=== PATIENT | male | born 1965 | race Caucasian/White ===

== ENCOUNTER 2018-08-28 16:32 | Emergency (ER) | payer MEDICARE, MEDICAID ==
[~2018-08-28] VITALS: Ht 193 cm; Wt 117.9 kg
[2018-08-28 16:32] VITALS: BP 136/70
--- NOTE | 2018-08-28 17:10 | Emergency Room Report ---
History of Present Illness General Chief Complaint: Abdominal Pain Source: Patient, Medical Record, EMS Present Illness HPI Patient presents with complaints of right flank and right lower abdominal pain Ongoing for the past 5 days Patient reports previous history of kidney stones Feels of the pain has been now more persistent Denies any vomiting denies any diarrhea Denies any chest pain or short of breath pain is 7 out of 10 Has improved recently Denies any blood in the urine Allergies: Coded Allergies: ACETAMINOPHEN (Verified Allergy, Unknown, 08/28/18) ASPIRIN (Verified Allergy, Unknown, 08/28/18) KETOROLAC (Verified Allergy, Unknown, 08/28/18) Uncoded Allergies: NSAIDS (Allergy, Unknown, 08/28/18) Patient History Past Medical History: see triage record Pertinent Family History: none Reviewed Nursing Documentation: PMH: Agreed; PSxH: Agreed Nursing Documentation-PMH Past Medical History: No History, Except For Hx Cardiac Problems: Yes - High cholesterol Hx Hypertension: Yes Hx Gastrointestinal Problems: No Hx Dialysis: No - History of kidney stones, UTI, BPH History Of Psychiatric Problem: Yes - Depression, Anxiety, Insomnia Hx Neurological Problems: Yes Hx Cerebrovascular Accident: Yes - Left sided hemiparesis Review of Systems All Other Systems: negative except mentioned in HPI Physical Exam Vital Signs Date Time Temp Pulse Resp B/P (MAP) Pulse Ox O2 Delivery O2 Flow Rate FiO2 08/28/18 16:24 208.6 78 18 97 98.1 08/28/18 16:24 112/64 Room Air Sp02 EP Interpretation: reviewed, normal General Appearance: well appearing, no apparent distress Head: normocephalic, atraumatic Eyes: bilateral eye PERRL, bilateral eye EOMI ENT: hearing grossly normal, normal pharynx Neck: supple Respiratory: lungs clear Cardiovascular #1: regular rate, rhythm Gastrointestinal: non tender Genitourinary: no CVA tenderness Musculoskeletal: other - Lower extremity weakness Neurologic: alert, oriented x3 Skin: no rash Lymphatic: no adenopathy Medical Decision Making Diagnostic Impression: Primary Impression: UTI (urinary tract infection) ER Course With the history exam and presentation, multiple differentials considered, including but not limited to appendicitis, gastritis, cholecystitis, diverticulitis Kidney stones with renal colic also entertained given the history CT imaging does not show any obvious kidney stones Urine sample showed small amount of white blood cells Other blood work was normal patient feels significantly improved Clinically denies being constipated at this time will have initial conservative treatment for UTI at the nursing facility and return with any changes Labs Test 08/28/18 17:15 White Blood Count 6.9 K/UL (4.8-10.8) Red Blood Count 5.12 M/UL (4.70-6.10) Hemoglobin 14.9 G/DL (14.2-18.0) Hematocrit 45.0 % (42.0-52.0) Mean Corpuscular Volume 88 FL (80-99) Mean Corpuscular Hemoglobin 29.2 PG (27.0-31.0) Mean Corpuscular Hemoglobin Concent 33.2 G/DL (32.0-36.0) Red Cell Distribution Width 13.6 % (11.6-14.8) Platelet Count 100 K/UL (150-450) Mean Platelet Volume 8.8 FL (6.5-10.1) Neutrophils (%) (Auto) 64.0 % (45.0-75.0) Lymphocytes (%) (Auto) 25.3 % (20.0-45.0) Monocytes (%) (Auto) 7.4 % (1.0-10.0) Eosinophils (%) (Auto) 2.5 % (0.0-3.0) Basophils (%) (Auto) 0.8 % (0.0-2.0) Urine Color Yellow Urine Appearance Clear Urine pH 7 (4.5-8.0) Urine Specific [place] 1.015 (1.005-1.035) Urine Protein Negative (NEGATIVE) Urine Glucose (UA) Negative (NEGATIVE) Urine Ketones Negative (NEGATIVE) Urine Blood Negative (NEGATIVE) Urine Nitrite Negative (NEGATIVE) Urine Bilirubin Negative (NEGATIVE) Urine Urobilinogen Normal MG/DL (0.0-1.0) Urine Leukocyte Esterase 1+ (NEGATIVE) Urine RBC 0-2 /HPF (0 - 0) Urine WBC 5-10 /HPF (0 - 0) Urine Squamous Epithelial Cells None /LPF (NONE/OCC) Urine Bacteria Few /HPF (NONE) Sodium Level 139 MMOL/L (136-145) Potassium Level 3.8 MMOL/L (3.5-5.1) Chloride Level 105 MMOL/L (98-107) Carbon Dioxide Level 25 MMOL/L (21-32) Anion Gap 9 mmol/L (5-15) Blood Urea Nitrogen 16 mg/dL (7-18) Creatinine 0.9 MG/DL (0.55-1.30) Estimat Glomerular Filtration Rate > 60 mL/min (>60) Glucose Level 105 MG/DL (74-106) Calcium Level 8.3 MG/DL (8.5-10.1) Total Bilirubin 0.3 MG/DL (0.2-1.0) Aspartate Amino Transf (AST/SGOT) 100 U/L (15-37) Alanine Aminotransferase (ALT/SGPT) 124 U/L (12-78) Alkaline Phosphatase 100 U/L (46-116) Total Protein 8.0 G/DL (6.4-8.2) Albumin 2.8 G/DL (3.4-5.0) Globulin 5.2 g/dL Albumin/Globulin Ratio 0.5 (1.0-2.7) CT/MRI/US Diagnostic Results CT/MRI/US Diagnostic Results : Impression CT abdomen pelvisMPRESSION: 1. Cholelithiasiswithout gallbladder wall thickening or ductal dilatation. 2. Spleen is enlarged, with a diameter of 15.9 cm. 3. Mild diffuse colonic fecal retention maysuggest constipation. 4. Incidental note of a 2.2 x 1.8 x 1.0 cmjuxta papillaryduodenal diverticulum. Last Vital Signs Date Time Temp Pulse Resp B/P (MAP) Pulse Ox O2 Delivery O2 Flow Rate FiO2 08/28/18 16:32 98.6 72 14 136/70 96 Room Air 98.6 Status: improved Disposition: XFER SNF Condition: Improved Scripts Nitrofurantoin Monohyd/M-Cryst* (MACROBID 100 MG*) 100 Mg Capsule 100 MG ORAL EVERY 12 HOURS, #14 CAP Prov: Tacho Ruiz DO 08/28/18 Additional Instructions: Patient is provided with the discharge instructions notified to follow up with primary doctor in the next 2-3 days otherwise return to the er with any worsening symptoms. Please note that this report is being documented using [email or web address] technology. This can lead to erroneous entry secondary to incorrect interpretation by the dictating instrument. Tacho Ruiz DO Aug 28, 2018 17:10
[2018-08-28] MEDS ORDERED: Morphine Sulfate 4mg/ml Inj (IV/IM USE ONLY) IVP ONE ×2 (17:15→20:30)
[2018-08-28 17:29] LABS: BASOPHILS % (AUTO) 0.8 % (0.0-2.0); EOSINOPHILS % (AUTO) 2.5 % (0.0-3.0); HEMOGLOBIN 14.9 G/DL (14.2-18.0); LYMPHOCYTES % (AUTO) 25.3 % (20.0-45.0); MEAN CORPUSCULAR VOLUME 88 FL (80-99); MONOCYTES % (AUTO) 7.4 % (1.0-10.0); PLATELET COUNT 100 K/UL (150-450); RED BLOOD COUNT 5.12 M/UL (4.70-6.10); RED CELL DISTRIBUTION WIDTH 13.6 % (11.6-14.8); WHITE BLOOD COUNT 6.9 K/UL (4.8-10.8)
[2018-08-28 17:34] LABS: APPEARANCE,URINE CLEAR; BILIRUBIN, URINE NEGATIVE (NEGATIVE); GLUCOSE, URINE (UA) NEGATIVE (NEGATIVE); KETONES,URINE NEGATIVE (NEGATIVE); LEUKOCYTE ESTERASE ,URINE 1+ (NEGATIVE); NITRITE,URINE NEGATIVE (NEGATIVE); PH,URINE 7 (4.5-8.0); PROTEIN,URINE NEGATIVE (NEGATIVE); UROBILINOGEN,URINE NORMAL MG/DL (0.0-1.0)
[2018-08-28 17:35] LABS: COLOR,URINE YELLOW
[2018-08-28 18:00] LABS: ANION GAP 9 mmol/L (5-15); BLOOD UREA NITROGEN 16 mg/dL (7-18); CALCIUM 8.3 MG/DL (8.5-10.1); CARBON DIOXIDE 25 MMOL/L (21-32); CHLORIDE 105 MMOL/L (98-107); CREATININE 0.9 MG/DL (0.55-1.30); POTASSIUM 3.8 MMOL/L (3.5-5.1); SODIUM 139 MMOL/L (136-145)
[2018-08-28 18:04] LABS: ALANINE AMINOTRANSFERASE 124 U/L (12-78); ALBUMIN 2.8 G/DL (3.4-5.0); ALBUMIN/GLOBULIN RATIO 0.5 (1.0-2.7); ALKALINE PHOSPHATASE 100 U/L (46-116); ASPARTATE AMINO TRANSFERASE 100 U/L (15-37); BILIRUBIN,TOTAL 0.3 MG/DL (0.2-1.0)
--- NOTE | 2018-08-28 18:04 | Diagnostic Imaging Report ---
EXAM: CT Abdomen and Pelvis Without Intravenous Contrast CLINICAL HISTORY: PAIN TECHNIQUE: Axial computed tomography images of the abdomen and pelvis without intravenous contrast. CTDI is 20.10 mGy and DLP is 1184 mGy-cm. One or more of the following dose reduction techniques were used: automated exposure control, adjustment of the mA and/or kV according to patient size, use of iterative reconstruction technique. COMPARISON: No relevant prior studies available. FINDINGS: Lung bases: Mild dependent atelectasis in the left lung base. ABDOMEN: Liver: Unremarkable. Gallbladder and bile ducts: Cholelithiasis without gallbladder wall thickening or ductal dilatation. Pancreas: Unremarkable. No ductal dilation. Spleen: Spleen is enlarged with a diameter of 15.9 cm. Adrenals: Unremarkable. No mass. Kidneys and ureters: Unremarkable. No obstructing stones. No hydronephrosis. Stomach and bowel: Mild diffuse colonic fecal retention may suggest constipation. Incidental note of a 2.2 x 1.8 x 1.0 cm juxta papillary duodenal diverticulum. No abnormally distended loops of small bowel. GE junction and stomach appear unremarkable. No mucosal thickening. PELVIS: Appendix: The appendix appears normal. Bladder: Unremarkable. No stones. Reproductive: Unremarkable as visualized. ABDOMEN and PELVIS: Intraperitoneal space: Unremarkable. No free air. No significant fluid collection. Bones/joints: No acute fracture. No dislocation. Soft tissues: Unremarkable. Vasculature: Atherosclerotic calcifications throughout the abdominal aorta and its proximal branches. No abnormal dilatation. Lymph nodes: Unremarkable. No enlarged lymph nodes. IMPRESSION: 1. Cholelithiasis without gallbladder wall thickening or ductal dilatation. 2. Spleen is enlarged, with a diameter of 15.9 cm. 3. Mild diffuse colonic fecal retention may suggest constipation. 4. Incidental note of a 2.2 x 1.8 x 1.0 cm juxta papillary duodenal diverticulum.
[2018-08-28] MEDS ORDERED: NITROFURANTOIN100 M2 ORAL (18:50)
[2018-08-28 19:07] VITALS: BP 131/59
[2018-08-28 20:37] VITALS: BP 134/60
[2018-08-28 21:21] VITALS: BP 134/60
== END 2018-08-28 21:30 ==
LOC: EDBD 16:32 → EMR 16:45
DX: N39.0 Urinary tract infection, site not specified (principal); K80.20 Calculus of gallbladder without cholecystitis without obstruction; R16.1 Splenomegaly, not elsewhere classified; K57.10 Diverticulosis of small intestine without perforation or abscess without bleeding; K59.00 Constipation, unspecified; I10 Essential (primary) hypertension; F41.8 Other specified anxiety disorders; G47.00 Insomnia, unspecified; I69.354 Hemiplegia and hemiparesis following cerebral infarction affecting left non-dominant side; E78.00 Pure hypercholesterolemia, unspecified; Z88.6 Allergy status to analgesic agent
CPT/HCPCS: 36415; 74176; 80053; 81003; 85025; 96374; 96375; 99284; J2270; J2405

== ENCOUNTER 2018-09-09 13:07 | Inpatient (IN) | payer MEDICARE, MEDICAID ==
[~2018-09-09] VITALS: Ht 193 cm; Wt 127.0 kg
[~2018-09-09 13:07] MED LIST: NITROFURANTOIN100 M2 ORAL
[2018-09-09 13:30] VITALS: BP 107/66
[2018-09-09] MEDS ORDERED: Nitroglycerin 2% oint pkt TOPIC ONE (13:30)
[2018-09-09] MEDS ORDERED: Morphine Sulfate 4mg/ml Inj (IV/IM USE ONLY) IVP ONE (13:30)
[2018-09-09 14:06] LABS: BASOPHILS % (AUTO) 0.8 % (0.0-2.0); EOSINOPHILS % (AUTO) 2.5 % (0.0-3.0); HEMATOCRIT 47.6 % (42.0-52.0); HEMOGLOBIN 15.2 G/DL (14.2-18.0); LYMPHOCYTES % (AUTO) 21.7 % (20.0-45.0); MEAN CORPUSCULAR VOLUME 86 FL (80-99); MONOCYTES % (AUTO) 7.8 % (1.0-10.0); NEUTROPHILS % (AUTO) 67.3 % (45.0-75.0); PLATELET COUNT 105 K/UL (150-450); RED BLOOD COUNT 5.52 M/UL (4.70-6.10); RED CELL DISTRIBUTION WIDTH 13.7 % (11.6-14.8); WHITE BLOOD COUNT 7.1 K/UL (4.8-10.8)
[2018-09-09 14:07] LABS: ANION GAP 11 mmol/L (5-15); BLOOD UREA NITROGEN 14 mg/dL (7-18); CALCIUM 8.6 MG/DL (8.5-10.1); CARBON DIOXIDE 25 MMOL/L (21-32); CHLORIDE 107 MMOL/L (98-107); CREATININE 0.8 MG/DL (0.55-1.30); POTASSIUM 3.9 MMOL/L (3.5-5.1); SODIUM 142 MMOL/L (136-145)
[2018-09-09 14:17] LABS: INR 3.8 (0.9-1.1)
[2018-09-09 14:22] LABS: ALANINE AMINOTRANSFERASE 114 U/L (12-78); ALBUMIN 2.9 G/DL (3.4-5.0); ALBUMIN/GLOBULIN RATIO 0.6 (1.0-2.7); ALKALINE PHOSPHATASE 95 U/L (46-116); ASPARTATE AMINO TRANSFERASE 87 U/L (15-37); BILIRUBIN,TOTAL 0.4 MG/DL (0.2-1.0); CREATINE KINASE 92 U/L (26-308)
[2018-09-09] MEDS ORDERED: HYDROmorphone 1mg/ml Carpuject IVP ONE ×2 (15:15→16:30)
[2018-09-09 15:19] LABS: APPEARANCE,URINE CLEAR; BILIRUBIN, URINE NEGATIVE (NEGATIVE); COLOR,URINE YELLOW; GLUCOSE, URINE (UA) NEGATIVE (NEGATIVE); KETONES,URINE NEGATIVE (NEGATIVE); LEUKOCYTE ESTERASE ,URINE 1+ (NEGATIVE); NITRITE,URINE NEGATIVE (NEGATIVE); PH,URINE 6.5 (4.5-8.0); PROTEIN,URINE NEGATIVE (NEGATIVE); UROBILINOGEN,URINE NORMAL MG/DL (0.0-1.0)
--- NOTE | 2018-09-09 15:31 | Diagnostic Imaging Report ---
Indication: Chest pain Comparison: None A single view chest radiograph was obtained. Findings: No definite infiltrate identified. The lung bases likely show mild atelectasis. Heart size is normal. Bones are unremarkable. IMPRESSION: No acute disease
--- NOTE | 2018-09-09 15:33 | Emergency Room Report ---
History of Present Illness General Chief Complaint: Pain Source: Patient, Medical Record, EMS Present Illness HPI Patient presents with left-sided chest pain for 2 days. He states he's had a heart attack in the past and this feels exactly like that. Radiates to scapula. He rates the pain at 9/10 at this time. Pressure and aching. No dyspnea. The patient's had a stroke in lives in a senior care facility and has hemiparesis and weakness of his left side. He's also on anticoagulation ( plavix recorded). Denies fever, chills, cough, hemoptysis, dyspnea, headache, rashes, extremity pain, increased weakness. Depression. H/O hepatitis Allergies: Coded Allergies: ACETAMINOPHEN (Verified Allergy, Unknown, 08/28/18) ASPIRIN (Verified Allergy, Unknown, 08/28/18) KETOROLAC (Verified Allergy, Unknown, 08/28/18) NSAIDS (NON-STEROIDAL ANTI-INFLAMMA (Verified Allergy, Unknown, 09/09/18) Patient History Past Medical History: see triage record Social History: Denies: smoking Social History Narrative SNF Reviewed Nursing Documentation: PMH: Agreed; PSxH: Agreed Nursing Documentation-PMH Past Medical History: No History, Except For Hx Cardiac Problems: No - High cholesterol, hepatitis Hx Hypertension: Yes Hx Gastrointestinal Problems: No - GERD Hx Dialysis: No - History of kidney stones, UTI, BPH History Of Psychiatric Problem: No - anxiety, depression Hx Neurological Problems: Yes Hx Cerebrovascular Accident: Yes - Left sided hemiparesis Review of Systems All Other Systems: negative except mentioned in HPI Physical Exam Vital Signs Date Time Temp Pulse Resp B/P (MAP) Pulse Ox O2 Delivery O2 Flow Rate FiO2 09/09/18 12:57 97.9 74 18 111/56 99 Room Air Sp02 EP Interpretation: reviewed, normal General Appearance: no apparent distress, GCS 15, Chronically Ill Head: normocephalic Eyes: bilateral eye normal inspection, bilateral eye PERRL ENT: moist mucus membranes Neck: supple Respiratory: lungs clear, normal breath sounds Cardiovascular #1: regular rate, rhythm Cardiovascular #2: 2+ radial (R) Gastrointestinal: normal inspection, normal bowel sounds, non tender, no mass, non-distended Musculoskeletal: back normal, no calf tenderness, pelvis stable, Mariia's Sign negative Neurologic: alert, sensory intact, motor weakness - L hemiparesis, oriented - X2 Psychiatric: depressed affect Skin: normal inspection, warm/dry Medical Decision Making Diagnostic Impression: Primary Impression: ACS (acute coronary syndrome) Additional Impressions: Hemiparesis Qualified Codes: I69.359 - Hemiplegia and hemiparesis following cerebral infarction affecting unspecified side Elevated INR ER Course Patient presents with left-sided chest pain. I differential includes acute myocardial infarction, acute coronary syndrome, costochondritis, muscle strain, pneumonia amongst others. Evaluation will be he EKG, chest x-ray and labs. The patient will be treated with nitroglycerin paste and morphine. The patient is allergic to aspirin. EKG shows normal sinus rhythm left axis deviation with nonspecific ST-T wave changes. Chest x-ray possible left effusion. Initial troponin negative. INR is prolonged. Pyuria. CMP with elevated LFTs (h/o hepatitis). The fact that the INR is prolonged suggests that this is not a PE although, no evidence of coumadin. Patient still with significant pain. Dilaudid given. Patient admitted to telemetry for acute coronary syndrome Dr. Christiansen. Laboratory Tests Test 09/09/18 13:36 09/09/18 14:32 White Blood Count 7.1 K/UL (4.8-10.8) Red Blood Count 5.52 M/UL (4.70-6.10) Hemoglobin 15.2 G/DL (14.2-18.0) Hematocrit 47.6 % (42.0-52.0) Mean Corpuscular Volume 86 FL (80-99) Mean Corpuscular Hemoglobin 27.5 PG (27.0-31.0) Mean Corpuscular Hemoglobin Concent 31.9 G/DL (32.0-36.0) L Red Cell Distribution Width 13.7 % (11.6-14.8) Platelet Count 105 K/UL (150-450) L Mean Platelet Volume 9.8 FL (6.5-10.1) Neutrophils (%) (Auto) 67.3 % (45.0-75.0) Lymphocytes (%) (Auto) 21.7 % (20.0-45.0) Monocytes (%) (Auto) 7.8 % (1.0-10.0) Eosinophils (%) (Auto) 2.5 % (0.0-3.0) Basophils (%) (Auto) 0.8 % (0.0-2.0) Prothrombin Time 37.3 SEC (9.30-11.50) H Prothrombin Time INR 3.8 (0.9-1.1) H PTT 51 SEC (23-33) H Sodium Level 142 MMOL/L (136-145) Potassium Level 3.9 MMOL/L (3.5-5.1) Chloride Level 107 MMOL/L (98-107) Carbon Dioxide Level 25 MMOL/L (21-32) Anion Gap 11 mmol/L (5-15) Blood Urea Nitrogen 14 mg/dL (7-18) Creatinine 0.8 MG/DL (0.55-1.30) Estimate Glomerular Filtration Rate > 60 mL/min (>60) Glucose Level 98 MG/DL (74-106) Calcium Level 8.6 MG/DL (8.5-10.1) Total Bilirubin 0.4 MG/DL (0.2-1.0) Aspartate Amino Transferase (AST) 87 U/L (15-37) H Alanine Aminotransferase (ALT) 114 U/L (12-78) H Alkaline Phosphatase 95 U/L (46-116) Total Creatine Kinase 92 U/L (26-308) Troponin I 0.007 ng/mL (0.000-0.056) Pro-B-Type Natriuretic Peptide 35 pg/mL (0-125) Total Protein 8.1 G/DL (6.4-8.2) Albumin 2.9 G/DL (3.4-5.0) L Globulin 5.2 g/dL Albumin/Globulin Ratio 0.6 (1.0-2.7) L Urine Color Yellow Urine Appearance Clear Urine pH 6.5 (4.5-8.0) Urine Specific [place] 1.015 (1.005-1.035) Urine Protein Negative (NEGATIVE) Urine Glucose (UA) Negative (NEGATIVE) Urine Ketones Negative (NEGATIVE) Urine Blood Negative (NEGATIVE) Urine Nitrite Negative (NEGATIVE) Urine Bilirubin Negative (NEGATIVE) Urine Urobilinogen Normal MG/DL (0.0-1.0) Urine Leukocyte Esterase 1+ (NEGATIVE) H Urine RBC 2-4 /HPF (0 - 0) H Urine WBC 5-10 /HPF (0 - 0) H Urine Squamous Epithelial Cells None /LPF (NONE/OCC) Urine Bacteria Occasional /HPF (NONE) EKG Diagnostic Results Rate: normal Rhythm: NSR ST Segments: no acute changes ASA given to the pt in ED: No - allergic Rhythm Strip Diag. Results EP Interpretation: yes Rhythm: NSR, no PVC's, no ectopy Chest X-Ray Diagnostic Results Chest X-Ray Diagnostic Results : Chest X-Ray Ordered: Yes # of Views/Limited/Complete: 1 View Indication: Chest Pain Interpretation: no consolidation, no effusion, no pneumothorax Impression: No acute disease Electronically Signed by: Will Barr MD Last Vital Signs Date Time Temp Pulse Resp B/P (MAP) Pulse Ox O2 Delivery O2 Flow Rate FiO2 09/09/18 20:00 70 09/09/18 20:00 98.1 19 129/64 (85) 94 09/09/18 19:58 Room Air 21 Status: improved Disposition: ADMITTED INPATIENT Condition: Serious Referrals: NON PHYSICIAN (PCP) Will Barr MD Sep 09, 2018 15:33
[2018-09-09] MEDS ORDERED: SERTRALINE HCL50 MG ORAL (15:38)
[2018-09-09] MEDS ORDERED: TAMSULOSIN HCL0.4 MG ORAL (15:38)
[2018-09-09] MEDS ORDERED: ATORVASTATIN CA20 MG ORAL (15:38)
[2018-09-09] MEDS ORDERED: BISACODYL10 M1 RC (15:38)
[2018-09-09] MEDS ORDERED: TRAZODONE HCL50 MG ORAL (15:38)
[2018-09-09] MEDS ORDERED: PROSCAR5 MG ORAL (15:38)
[2018-09-09] MEDS ORDERED: GABAPENTIN600 MG ORAL (15:38)
[2018-09-09] MEDS ORDERED: VITAMIN D400 INTLU ORAL (15:38)
[2018-09-09] MEDS ORDERED: PLAVIX75 MG ORAL (15:38)
[2018-09-09] MEDS ORDERED: ABILIFY10 MG ORAL (15:38)
[2018-09-09] MEDS ORDERED: MULTIVITAMINS1 EAC8 ORAL (15:38)
[2018-09-09] MEDS ORDERED: CARISOPRODOL350 MG ORAL (15:38)
[2018-09-09] MEDS ORDERED: COLACE100 MG ORAL (15:38)
[2018-09-09] MEDS ORDERED: METOPROLOL TART25 MG ORAL (15:38)
[2018-09-09] MEDS ORDERED: LACTULOSE20 GM/301 ORAL (15:38)
[2018-09-09] MEDS ORDERED: FOLIC ACID1 MG ORAL (15:38)
[2018-09-09] MEDS ORDERED: MILK OF MA2400 MG/10 ORAL (15:38)
[2018-09-09] MEDS ORDERED: TRAMADOL HCL100 M2 ORAL (15:38)
[2018-09-09] MEDS ORDERED: PRO-STAT LIQUID30 ML ORAL (15:38)
[2018-09-09] MEDS ORDERED: CRANBERRY450 M4 PO (15:38)
[2018-09-09] MEDS ORDERED: FAMOTIDINE20 MG ORAL (15:38)
[2018-09-09] MEDS ORDERED: MELATONIN3 MG ORAL (15:38)
[2018-09-09] MEDS ORDERED: [UNRECOGNIZED DRUG - CODE] PO (15:38)
[2018-09-09 16:00] VITALS: BP 123/70
[2018-09-09] MEDS ORDERED: Enalaprilat 2.5mg/2ml Inj IV PRN (17:30)
[2018-09-09] MEDS ORDERED: Miralax 17gm pkt ORAL PRN (17:30)
[2018-09-09] MEDS ORDERED: dilTIAZem HCl 25mg/5ml Inj IV PRN (17:30)
[2018-09-09] MEDS ORDERED: Albuterol/Ipratropium 3ml neb HHN PRN (17:30)
[2018-09-09] MEDS ORDERED: Nitroglycerin Subl 0.4mg tab SL PRN (17:30)
[2018-09-09] MEDS: Tamsulosin 0.4mg cap ORAL SCH (17:51)
[2018-09-09] MEDS: Morphine Sulfate 2mg/ml Inj IVP PRN ×2 (18:42→23:10)
[2018-09-09 20:00] VITALS: BP 129/64
[2018-09-09] MEDS: Heparin 5000 units/ml inj SUBQ SCH (21:00)
--- NOTE | 2018-09-09 21:27 | Consultation ---
History of Present Illness General Date patient seen: Sep 09, 2018 Time patient seen: 21:27 Chief Complaint: Pain Present Illness HPI 52 year old patient brought from [facility], [place] due to left shoulder blade for 1 day. 52 year old male with hx of CVA, HTN, CAD Depression, half-way resident presented to ER with CC of with left-sided chest pain for 2 days. He states he's had a heart attack in the past and this feels exactly like that. Radiates to scapula. He rates the pain at 9/10 at this time. Denies fever, chills, cough, hemoptysis, dyspnea, headache, rashes, extremity pain, increased weakness. Troponin negative, EKG no ischemia. Vitals stable. CXR No acute disease Allergies: Coded Allergies: ACETAMINOPHEN (Verified Allergy, Unknown, 08/28/18) ASPIRIN (Verified Allergy, Unknown, 08/28/18) KETOROLAC (Verified Allergy, Unknown, 08/28/18) NSAIDS (NON-STEROIDAL ANTI-INFLAMMA (Verified Allergy, Unknown, 09/09/18) Medication History Scheduled Amino Acids/Protein Hydrolys (Pro-Stat Liquid), 30 ML ORAL TWICE A DAY, ( Reported) Aripiprazole* (Abilify*), 5 MG ORAL HS, (Reported) Atorvastatin Calcium* (Atorvastatin Calcium*), 20 MG ORAL BEDTIME, (Reported) Bisacodyl (Bisacodyl), 10 MG RC PRN, (Reported) Carisoprodol* (Carisoprodol*), 350 MG ORAL Q8HR, (Reported) Clopidogrel Bisulfate* (Plavix*), 75 MG ORAL DAILY, (Reported) Cranberry Fruit Concentrate (Cranberry), 900 MG PO BID, (Reported) Docusate Sodium* (Colace*), 100 MG ORAL DAILY, (Reported) Famotidine (Famotidine), 20 MG ORAL TWICE A DAY, (Reported) Finasteride* (Proscar*), 5 MG ORAL DAILY, (Reported) Folic Acid* (Folic Acid*), 1 MG ORAL DAILY, (Reported) Gabapentin* (Gabapentin*), 600 MG ORAL THREE TIMES A DAY, (Reported) Lactulose (Lactulose*), 30 ML ORAL DAILY, (Reported) Magnesium Hydroxide* (Milk Of Magnesia*), 30 ML ORAL DAILY, (Reported) Magnesium Oxide/Mag Aa Chelate (Magnesium 300 Mg Capsule), 400 MG PO DAILY, ( Reported) Metoprolol Tartrate* (Metoprolol Tartrate*), 25 MG ORAL EVERY 12 HOURS, ( Reported) Multivitamin With Minerals (Multivitamins With Minerals*), 1 TAB ORAL DAILY, ( Reported) Nitrofurantoin Monohyd/M-Cryst* (Macrobid 100 Mg*), 100 MG ORAL EVERY 12 HOURS Sertraline Hcl* (Zoloft*), 50 MG ORAL DAILY, (Reported) Tamsulosin Hcl (Tamsulosin Hcl*), 0.4 MG ORAL BID, (Reported) Tramadol Hcl (Tramadol Hcl), 50 MG ORAL Q6HR, (Reported) Trazodone Hcl* (Desyrel*), 50 MG ORAL BEDTIME, (Reported) Vitamin D (Vitamin D3), 5,000 UNITS ORAL DAILY, (Reported) Scheduled PRN Melatonin (Melatonin), 3 MG ORAL BEDTIME PRN for Insomnia, (Reported) Patient History Healthcare decision maker DaughterAyleen [phone] Resuscitation status Do Not Resuscitate Advanced Directive on File Review of Systems Constitutional: Reports: no symptoms Eye: Reports: no symptoms ENT: Reports: no symptoms Respiratory: Reports: no symptoms Cardiovascular: Reports: chest pain Gastrointestinal: Reports: no symptoms Genitourinary: Reports: no symptoms Musculoskeletal: Reports: no symptoms Skin: Reports: no symptoms Psychiatric: Reports: no symptoms Neurological: Reports: no symptoms Endocrine: Reports: no symptoms Hematologic/Lymphatic: Reports: no symptoms Physical Exam General Appearance: no apparent distress, alert Lines, tubes and drains: peripheral HEENT: normocephalic, atraumatic Neck: non-tender, normal alignment, supple Respiratory/Chest: chest wall non-tender, lungs clear, normal breath sounds Cardiovascular/Chest: normal peripheral pulses, normal rate, regular rhythm Abdomen: normal bowel sounds, non tender, soft Extremities: normal range of motion, non-tender, normal inspection Neurologic: tip stretcher II-XII grossly normal, no motor/sensory deficits Last 24 Hour Vital Signs Date Time Temp Pulse Resp B/P (MAP) Pulse Ox O2 Delivery O2 Flow Rate FiO2 09/09/18 20:00 70 09/09/18 20:00 98.1 70 19 129/64 (85) 94 09/09/18 19:58 70 18 Room Air 21 09/09/18 17:19 Room Air 09/09/18 16:30 98.1 20 117/69 68 Room Air 09/09/18 16:00 98.1 20 123/70 (87) 68 09/09/18 13:48 154/96 09/09/18 13:30 97.9 18 107/66 99 Room Air 09/09/18 12:57 97.9 74 18 111/56 99 Room Air Laboratory Tests Test 09/09/18 13:36 09/09/18 14:32 White Blood Count 7.1 K/UL (4.8-10.8) Red Blood Count 5.52 M/UL (4.70-6.10) Hemoglobin 15.2 G/DL (14.2-18.0) Hematocrit 47.6 % (42.0-52.0) Mean Corpuscular Volume 86 FL (80-99) Mean Corpuscular Hemoglobin 27.5 PG (27.0-31.0) Mean Corpuscular Hemoglobin Concent 31.9 G/DL (32.0-36.0) L Red Cell Distribution Width 13.7 % (11.6-14.8) Platelet Count 105 K/UL (150-450) L Mean Platelet Volume 9.8 FL (6.5-10.1) Neutrophils (%) (Auto) 67.3 % (45.0-75.0) Lymphocytes (%) (Auto) 21.7 % (20.0-45.0) Monocytes (%) (Auto) 7.8 % (1.0-10.0) Eosinophils (%) (Auto) 2.5 % (0.0-3.0) Basophils (%) (Auto) 0.8 % (0.0-2.0) Prothrombin Time 37.3 SEC (9.30-11.50) H Prothromb Time International Ratio 3.8 (0.9-1.1) H Activated Partial Thromboplast Time 51 SEC (23-33) H Sodium Level 142 MMOL/L (136-145) Potassium Level 3.9 MMOL/L (3.5-5.1) Chloride Level 107 MMOL/L (98-107) Carbon Dioxide Level 25 MMOL/L (21-32) Anion Gap 11 mmol/L (5-15) Blood Urea Nitrogen 14 mg/dL (7-18) Creatinine 0.8 MG/DL (0.55-1.30) Estimat Glomerular Filtration Rate > 60 mL/min (>60) Glucose Level 98 MG/DL (74-106) Calcium Level 8.6 MG/DL (8.5-10.1) Total Bilirubin 0.4 MG/DL (0.2-1.0) Aspartate Amino Transf (AST/SGOT) 87 U/L (15-37) H Alanine Aminotransferase (ALT/SGPT) 114 U/L (12-78) H Alkaline Phosphatase 95 U/L (46-116) Total Creatine Kinase 92 U/L (26-308) Troponin I 0.007 ng/mL (0.000-0.056) Pro-B-Type Natriuretic Peptide 35 pg/mL (0-125) Total Protein 8.1 G/DL (6.4-8.2) Albumin 2.9 G/DL (3.4-5.0) L Globulin 5.2 g/dL Albumin/Globulin Ratio 0.6 (1.0-2.7) L Urine Color Yellow Urine Appearance Clear Urine pH 6.5 (4.5-8.0) Urine Specific [place] 1.015 (1.005-1.035) Urine Protein Negative (NEGATIVE) Urine Glucose (UA) Negative (NEGATIVE) Urine Ketones Negative (NEGATIVE) Urine Blood Negative (NEGATIVE) Urine Nitrite Negative (NEGATIVE) Urine Bilirubin Negative (NEGATIVE) Urine Urobilinogen Normal MG/DL (0.0-1.0) Urine Leukocyte Esterase 1+ (NEGATIVE) H Urine RBC 2-4 /HPF (0 - 0) H Urine WBC 5-10 /HPF (0 - 0) H Urine Squamous Epithelial Cells None /LPF (NONE/OCC) Urine Bacteria Occasional /HPF (NONE) Height (Feet): 6 Height (Inches): 4.00 Weight (Pounds): 280 Medications Current Medications Medications (Trade) Dose Ordered Sig/Hugo Route PRN Reason Start Time Stop Time Status Last Admin Dose Admin Albuterol/ Ipratropium (Albuterol/ Ipratropium) 3 ml Q4H PRN HHN Shortness of Breath 09/09/18 17:30 09/14/18 17:29 Aripiprazole (Abilify) 5 mg DAILY ORAL 09/10/18 09:00 10/10/18 08:59 Atorvastatin Calcium (Lipitor) 20 mg BEDTIME ORAL 09/09/18 21:00 10/09/18 20:59 Carisoprodol (Soma) 350 mg Q8HR ORAL 09/09/18 22:00 10/09/18 21:59 Clopidogrel Bisulfate (Plavix) 75 mg DAILY ORAL 09/10/18 09:00 10/10/18 08:59 Diltiazem HCl (Cardizem) 10 mg Q1H PRN IV heart rate more than 120, 09/09/18 17:30 10/09/18 17:29 Enalaprilat (Vasotec) 2.5 mg Q6H PRN IV sbp more than 160 09/09/18 17:30 10/09/18 17:29 Famotidine (Pepcid) 20 mg TWICE A DAY ORAL 09/09/18 18:00 10/09/18 17:59 09/09/18 17:52 Finasteride (Proscar) 5 mg DAILY ORAL 09/10/18 09:00 10/10/18 08:59 Gabapentin (Neurontin) 600 mg THREE TIMES A DAY ORAL 09/10/18 09:00 10/10/18 08:59 Heparin Sodium (Porcine) (Heparin 5000 units/ml) 5,000 units EVERY 12 HOURS SUBQ 09/09/18 21:00 10/09/18 20:59 Metoprolol Tartrate (Lopressor) 25 mg EVERY 12 HOURS ORAL 09/09/18 21:00 10/09/18 20:59 Morphine Sulfate (Morphine Sulfate) 2 mg Q4H PRN IVP severe Pain (Pain Scale 7-10) 09/09/18 17:30 09/16/18 17:29 09/09/18 18:42 Nitroglycerin (Ntg) 0.4 mg Q5M PRN SL Prn Chest Pain 09/09/18 17:30 10/09/18 17:29 Ondansetron HCl (Zofran) 4 mg Q6H PRN IVP Nausea & Vomiting 09/09/18 17:30 10/09/18 17:29 Polyethylene Glycol (Miralax) 17 gm DAILYPRN PRN ORAL Constipation 09/09/18 17:30 10/09/18 17:29 Sertraline HCl (Zoloft) 50 mg DAILY ORAL 09/10/18 09:00 10/10/18 08:59 Tamsulosin HCl (Flomax) 0.4 mg BID ORAL 09/09/18 18:00 10/09/18 17:59 09/09/18 17:51 Temazepam (Restoril) 15 mg HSPRN PRN ORAL Insomnia 09/09/18 17:30 09/16/18 17:29 Trazodone HCl (Desyrel) 50 mg BEDTIME ORAL 09/09/18 21:00 10/09/18 20:59 Assessment/Plan Status: stable Assessment/Plan (1) History of CVA (cerebrovascular accident) (2) Psychosis (3) Hemiparesis (4) CAD (coronary artery disease) (5) Chest pain Serial EKG/Troponin Echocardiogram Nitro prn chest pain Stress test prior to d/c plavix (ASA allergy) Statin Will [place] MD Sep 09, 2018 21:27
[2018-09-09] MEDS: Atorvastatin 20mg tab ORAL SCH (23:09)
[2018-09-09] MEDS: Metoprolol 25mg tab ORAL SCH (23:09)
[2018-09-09] MEDS: TraZODone 50mg tab ORAL SCH (23:09)
[2018-09-10] VITALS: BP 123/54
[2018-09-10 04:00] VITALS: BP 127/57
[2018-09-10] MEDS: Morphine Sulfate 2mg/ml Inj IVP PRN ×5 (04:37→23:15)
[2018-09-10 08:00] VITALS: BP 122/61
[2018-09-10 08:31] LABS: BASOPHILS % (AUTO) 0.9 % (0.0-2.0); EOSINOPHILS % (AUTO) 2.9 % (0.0-3.0); HEMATOCRIT 46.1 % (42.0-52.0); HEMOGLOBIN 15.3 G/DL (14.2-18.0); LYMPHOCYTES % (AUTO) 27.6 % (20.0-45.0); MEAN CORPUSCULAR VOLUME 87 FL (80-99); MONOCYTES % (AUTO) 8.8 % (1.0-10.0); NEUTROPHILS % (AUTO) 59.9 % (45.0-75.0); PLATELET COUNT 104 K/UL (150-450); RED BLOOD COUNT 5.28 M/UL (4.70-6.10); RED CELL DISTRIBUTION WIDTH 13.9 % (11.6-14.8); WHITE BLOOD COUNT 5.5 K/UL (4.8-10.8)
[2018-09-10] MEDS: Metoprolol 25mg tab ORAL SCH ×2 (08:48→20:42)
[2018-09-10] MEDS: Sertraline 50mg tab ORAL SCH (08:48)
[2018-09-10] MEDS: Tamsulosin 0.4mg cap ORAL SCH ×2 (08:48→20:42)
[2018-09-10] MEDS: Heparin 5000 units/ml inj SUBQ SCH ×2 (08:49→20:44)
[2018-09-10 09:22] LABS: CHOLESTEROL 92 MG/DL (< 200); HDL CHOLESTEROL 30 MG/DL (40-60); TRIGLYCERIDES 88 MG/DL (30-150)
--- NOTE | 2018-09-10 11:48 | History and Physical ---
History of Present Illness General Date patient seen: Sep 10, 2018 Reason for Hospitalization: Pain Present Illness HPI 52 year old male with hx of CVA, HTN, CAD Depression, prison resident presented to ER with CC of with left-sided chest pain for 2 days. He states he 's had a heart attack in the past and this feels exactly like that. Radiates to scapula. He rates the pain at 9/10 at this time. Denies fever, chills, cough, hemoptysis, dyspnea, headache, rashes, extremity pain, increased weakness. Allergies: Coded Allergies: ACETAMINOPHEN (Verified Allergy, Unknown, 08/28/18) ASPIRIN (Verified Allergy, Unknown, 08/28/18) KETOROLAC (Verified Allergy, Unknown, 08/28/18) NSAIDS (NON-STEROIDAL ANTI-INFLAMMA (Verified Allergy, Unknown, 09/09/18) Medication History Scheduled Amino Acids/Protein Hydrolys (Pro-Stat Liquid), 30 ML ORAL TWICE A DAY, ( Reported) Aripiprazole* (Abilify*), 5 MG ORAL HS, (Reported) Atorvastatin Calcium* (Atorvastatin Calcium*), 20 MG ORAL BEDTIME, (Reported) Bisacodyl (Bisacodyl), 10 MG RC PRN, (Reported) Carisoprodol* (Carisoprodol*), 350 MG ORAL Q8HR, (Reported) Clopidogrel Bisulfate* (Plavix*), 75 MG ORAL DAILY, (Reported) Cranberry Fruit Concentrate (Cranberry), 900 MG PO BID, (Reported) Docusate Sodium* (Colace*), 100 MG ORAL DAILY, (Reported) Famotidine (Famotidine), 20 MG ORAL TWICE A DAY, (Reported) Finasteride* (Proscar*), 5 MG ORAL DAILY, (Reported) Folic Acid* (Folic Acid*), 1 MG ORAL DAILY, (Reported) Gabapentin* (Gabapentin*), 600 MG ORAL THREE TIMES A DAY, (Reported) Lactulose (Lactulose*), 30 ML ORAL DAILY, (Reported) Magnesium Hydroxide* (Milk Of Magnesia*), 30 ML ORAL DAILY, (Reported) Magnesium Oxide/Mag Aa Chelate (Magnesium 300 Mg Capsule), 400 MG PO DAILY, ( Reported) Metoprolol Tartrate* (Metoprolol Tartrate*), 25 MG ORAL EVERY 12 HOURS, ( Reported) Multivitamin With Minerals (Multivitamins With Minerals*), 1 TAB ORAL DAILY, ( Reported) Nitrofurantoin Monohyd/M-Cryst* (Macrobid 100 Mg*), 100 MG ORAL EVERY 12 HOURS Sertraline Hcl* (Zoloft*), 50 MG ORAL DAILY, (Reported) Tamsulosin Hcl (Tamsulosin Hcl*), 0.4 MG ORAL BID, (Reported) Tramadol Hcl (Tramadol Hcl), 50 MG ORAL Q6HR, (Reported) Trazodone Hcl* (Desyrel*), 50 MG ORAL BEDTIME, (Reported) Vitamin D (Vitamin D3), 5,000 UNITS ORAL DAILY, (Reported) Scheduled PRN Melatonin (Melatonin), 3 MG ORAL BEDTIME PRN for Insomnia, (Reported) Patient History Healthcare decision maker DaughterAyleen [phone] Resuscitation status Do Not Resuscitate Advanced Directive on File Past Medical/Surgical History Past Medical/Surgical History: (1) History of CVA (cerebrovascular accident) (2) Psychosis (3) Hemiparesis (4) CAD (coronary artery disease) Review of Systems All Other Systems: negative except mentioned in HPI Physical Exam General Appearance: WD/WN, no apparent distress Lines, tubes and drains: peripheral HEENT: normocephalic, atraumatic Neck: non-tender, normal alignment Respiratory/Chest: chest wall non-tender, lungs clear Breasts: no masses Cardiovascular/Chest: normal peripheral pulses Abdomen: normal bowel sounds, non tender Genitourinary/Rectal: normal genital exam Last 24 Hour Vital Signs Date Time Temp Pulse Resp B/P (MAP) Pulse Ox O2 Delivery O2 Flow Rate FiO2 09/10/18 09:18 98.4 09/10/18 09:00 Room Air 09/10/18 08:48 69 122/61 09/10/18 08:00 70 09/10/18 08:00 98.4 69 18 122/61 (81) 96 09/10/18 04:00 98.4 70 19 127/57 (80) 94 09/10/18 04:00 70 09/10/18 00:00 98.0 72 19 123/54 (77) 93 09/10/18 00:00 69 09/09/18 23:09 70 129/64 09/09/18 21:00 Room Air 09/09/18 20:00 70 09/09/18 20:00 98.1 70 19 129/64 (85) 94 09/09/18 19:58 70 18 Room Air 21 09/09/18 17:19 Room Air 09/09/18 16:30 98.1 20 117/69 68 Room Air 09/09/18 16:00 98.1 20 123/70 (87) 68 09/09/18 13:48 154/96 09/09/18 13:30 97.9 18 107/66 99 Room Air 09/09/18 12:57 97.9 74 18 111/56 99 Room Air Intake and Output 09/09/18 09/10/18 18:59 06:59 Intake Total 120 ml 360 ml Output Total 400 ml Balance 120 ml -40 ml Intake Oral 120 ml 360 ml Output Urine Total 400 ml Laboratory Tests Test 09/09/18 13:36 09/09/18 14:32 09/10/18 07:05 White Blood Count 7.1 K/UL (4.8-10.8) 5.5 K/UL (4.8-10.8) Red Blood Count 5.52 M/UL (4.70-6.10) 5.28 M/UL (4.70-6.10) Hemoglobin 15.2 G/DL (14.2-18.0) 15.3 G/DL (14.2-18.0) Hematocrit 47.6 % (42.0-52.0) 46.1 % (42.0-52.0) Mean Corpuscular Volume 86 FL (80-99) 87 FL (80-99) Mean Corpuscular Hemoglobin 27.5 PG (27.0-31.0) 29.1 PG (27.0-31.0) Mean Corpuscular Hemoglobin Concent 31.9 G/DL (32.0-36.0) L 33.3 G/DL (32.0-36.0) Red Cell Distribution Width 13.7 % (11.6-14.8) 13.9 % (11.6-14.8) Platelet Count 105 K/UL (150-450) L 104 K/UL (150-450) L Mean Platelet Volume 9.8 FL (6.5-10.1) 9.9 FL (6.5-10.1) Neutrophils (%) (Auto) 67.3 % (45.0-75.0) 59.9 % (45.0-75.0) Lymphocytes (%) (Auto) 21.7 % (20.0-45.0) 27.6 % (20.0-45.0) Monocytes (%) (Auto) 7.8 % (1.0-10.0) 8.8 % (1.0-10.0) Eosinophils (%) (Auto) 2.5 % (0.0-3.0) 2.9 % (0.0-3.0) Basophils (%) (Auto) 0.8 % (0.0-2.0) 0.9 % (0.0-2.0) Prothrombin Time 37.3 SEC (9.30-11.50) H 10.7 SEC (9.30-11.50) Prothromb Time International Ratio 3.8 (0.9-1.1) H 1.0 (0.9-1.1) Activated Partial Thromboplast Time 51 SEC (23-33) H 30 SEC (23-33) Sodium Level 142 MMOL/L (136-145) Potassium Level 3.9 MMOL/L (3.5-5.1) Chloride Level 107 MMOL/L (98-107) Carbon Dioxide Level 25 MMOL/L (21-32) Anion Gap 11 mmol/L (5-15) Blood Urea Nitrogen 14 mg/dL (7-18) Creatinine 0.8 MG/DL (0.55-1.30) Estimat Glomerular Filtration Rate > 60 mL/min (>60) Glucose Level 98 MG/DL (74-106) Calcium Level 8.6 MG/DL (8.5-10.1) Total Bilirubin 0.4 MG/DL (0.2-1.0) Aspartate Amino Transf (AST/SGOT) 87 U/L (15-37) H Alanine Aminotransferase (ALT/SGPT) 114 U/L (12-78) H Alkaline Phosphatase 95 U/L (46-116) Total Creatine Kinase 92 U/L (26-308) Troponin I 0.007 ng/mL (0.000-0.056) Pending Pro-B-Type Natriuretic Peptide 35 pg/mL (0-125) Total Protein 8.1 G/DL (6.4-8.2) Albumin 2.9 G/DL (3.4-5.0) L Globulin 5.2 g/dL Albumin/Globulin Ratio 0.6 (1.0-2.7) L Urine Color Yellow Urine Appearance Clear Urine pH 6.5 (4.5-8.0) Urine Specific [place] 1.015 (1.005-1.035) Urine Protein Negative (NEGATIVE) Urine Glucose (UA) Negative (NEGATIVE) Urine Ketones Negative (NEGATIVE) Urine Blood Negative (NEGATIVE) Urine Nitrite Negative (NEGATIVE) Urine Bilirubin Negative (NEGATIVE) Urine Urobilinogen Normal MG/DL (0.0-1.0) Urine Leukocyte Esterase 1+ (NEGATIVE) H Urine RBC 2-4 /HPF (0 - 0) H Urine WBC 5-10 /HPF (0 - 0) H Urine Squamous Epithelial Cells None /LPF (NONE/OCC) Urine Bacteria Occasional /HPF (NONE) C-Reactive Protein, Quantitative 0.8 mg/dL (0.00-0.90) Triglycerides Level 88 MG/DL (30-150) Cholesterol Level 92 MG/DL (< 200) LDL Cholesterol 48 mg/dL (<100) HDL Cholesterol 30 MG/DL (40-60) L Cholesterol/HDL Ratio 3.1 (3.3-4.4) L Thyroid Stimulating Hormone (TSH) 3.876 uiU/mL (0.358-3.740) Height (Feet): 6 Height (Inches): 4.00 Weight (Pounds): 280 Medications Current Medications Medications (Trade) Dose Ordered Sig/Hugo Route PRN Reason Start Time Stop Time Status Last Admin Dose Admin Albuterol/ Ipratropium (Albuterol/ Ipratropium) 3 ml Q4H PRN HHN Shortness of Breath 09/09/18 17:30 09/14/18 17:29 Aripiprazole (Abilify) 5 mg DAILY ORAL 09/10/18 09:00 10/10/18 08:59 09/10/18 08:48 Atorvastatin Calcium (Lipitor) 20 mg BEDTIME ORAL 09/09/18 21:00 10/09/18 20:59 09/09/18 23:09 Carisoprodol (Soma) 350 mg Q8HR ORAL 09/09/18 22:00 10/09/18 21:59 09/10/18 06:02 Clopidogrel Bisulfate (Plavix) 75 mg DAILY ORAL 09/10/18 09:00 10/10/18 08:59 09/10/18 08:48 Diltiazem HCl (Cardizem) 10 mg Q1H PRN IV heart rate more than 120, 09/09/18 17:30 10/09/18 17:29 Enalaprilat (Vasotec) 2.5 mg Q6H PRN IV sbp more than 160 09/09/18 17:30 10/09/18 17:29 Famotidine (Pepcid) 20 mg TWICE A DAY ORAL 09/09/18 18:00 10/09/18 17:59 09/10/18 08:48 Finasteride (Proscar) 5 mg DAILY ORAL 09/10/18 09:00 10/10/18 08:59 09/10/18 08:48 Gabapentin (Neurontin) 600 mg THREE TIMES A DAY ORAL 09/10/18 09:00 10/10/18 08:59 09/10/18 08:48 Heparin Sodium (Porcine) (Heparin 5000 units/ml) 5,000 units EVERY 12 HOURS SUBQ 09/09/18 21:00 10/09/18 20:59 Metoprolol Tartrate (Lopressor) 25 mg EVERY 12 HOURS ORAL 09/09/18 21:00 10/09/18 20:59 09/10/18 08:48 Morphine Sulfate (Morphine Sulfate) 2 mg Q4H PRN IVP severe Pain (Pain Scale 7-10) 09/09/18 17:30 09/16/18 17:29 09/10/18 08:48 Nitroglycerin (Ntg) 0.4 mg Q5M PRN SL Prn Chest Pain 09/09/18 17:30 10/09/18 17:29 Ondansetron HCl (Zofran) 4 mg Q6H PRN IVP Nausea & Vomiting 09/09/18 17:30 10/09/18 17:29 Polyethylene Glycol (Miralax) 17 gm DAILYPRN PRN ORAL Constipation 09/09/18 17:30 10/09/18 17:29 Sertraline HCl (Zoloft) 50 mg DAILY ORAL 09/10/18 09:00 10/10/18 08:59 09/10/18 08:48 Tamsulosin HCl (Flomax) 0.4 mg BID ORAL 09/09/18 18:00 10/09/18 17:59 09/10/18 08:48 Temazepam (Restoril) 15 mg HSPRN PRN ORAL Insomnia 09/09/18 17:30 09/16/18 17:29 Trazodone HCl (Desyrel) 50 mg BEDTIME ORAL 09/09/18 21:00 10/09/18 20:59 09/09/18 23:09 Assessment/Plan Problem List: (1) CAD (coronary artery disease) ICD Codes: I25.10 - Atherosclerotic heart disease of [place] coronary artery without angina pectoris SNOMED: 37321794 (2) History of CVA (cerebrovascular accident) ICD Codes: Z86.73 - Personal history of transient ischemic attack (TIA), and cerebral infarction without residual deficits SNOMED: 357212355 (3) ACS (acute coronary syndrome) ICD Codes: I24.9 - Acute ischemic heart disease, unspecified SNOMED: 667273201 (4) Psychosis ICD Codes: F29 - Unspecified psychosis not due to a substance or known physiological condition SNOMED: 77820364 Assessment/Plan serial ekg, troponin, echo cardiology evaluation monitor BP continue Lexy Cruz MD Sep 10, 2018 11:48
[2018-09-10 12:00] VITALS: BP 125/68
--- NOTE | 2018-09-10 13:20 | Consultation ---
History of Present Illness General Date patient seen: Sep 09, 2018 Chief Complaint: Pain Present Illness HPI 52 year old male with hx of CVA, HTN, CAD Depression, intermediate resident presented to ER with CC of with left-sided chest pain. the pt is on abilify and trazadone. the pt was irritable depressed and low energy. the pt doesnt have any si/hi, the pt has anxiety. the pt does not want meds change. Allergies: Coded Allergies: ACETAMINOPHEN (Verified Allergy, Unknown, 08/28/18) ASPIRIN (Verified Allergy, Unknown, 08/28/18) KETOROLAC (Verified Allergy, Unknown, 08/28/18) NSAIDS (NON-STEROIDAL ANTI-INFLAMMA (Verified Allergy, Unknown, 09/09/18) Medication History Scheduled Amino Acids/Protein Hydrolys (Pro-Stat Liquid), 30 ML ORAL TWICE A DAY, ( Reported) Aripiprazole* (Abilify*), 5 MG ORAL HS, (Reported) Atorvastatin Calcium* (Atorvastatin Calcium*), 20 MG ORAL BEDTIME, (Reported) Bisacodyl (Bisacodyl), 10 MG RC PRN, (Reported) Carisoprodol* (Carisoprodol*), 350 MG ORAL Q8HR, (Reported) Clopidogrel Bisulfate* (Plavix*), 75 MG ORAL DAILY, (Reported) Cranberry Fruit Concentrate (Cranberry), 900 MG PO BID, (Reported) Docusate Sodium* (Colace*), 100 MG ORAL DAILY, (Reported) Famotidine (Famotidine), 20 MG ORAL TWICE A DAY, (Reported) Finasteride* (Proscar*), 5 MG ORAL DAILY, (Reported) Folic Acid* (Folic Acid*), 1 MG ORAL DAILY, (Reported) Gabapentin* (Gabapentin*), 600 MG ORAL THREE TIMES A DAY, (Reported) Lactulose (Lactulose*), 30 ML ORAL DAILY, (Reported) Magnesium Hydroxide* (Milk Of Magnesia*), 30 ML ORAL DAILY, (Reported) Magnesium Oxide/Mag Aa Chelate (Magnesium 300 Mg Capsule), 400 MG PO DAILY, ( Reported) Metoprolol Tartrate* (Metoprolol Tartrate*), 25 MG ORAL EVERY 12 HOURS, ( Reported) Multivitamin With Minerals (Multivitamins With Minerals*), 1 TAB ORAL DAILY, ( Reported) Nitrofurantoin Monohyd/M-Cryst* (Macrobid 100 Mg*), 100 MG ORAL EVERY 12 HOURS Sertraline Hcl* (Zoloft*), 50 MG ORAL DAILY, (Reported) Tamsulosin Hcl (Tamsulosin Hcl*), 0.4 MG ORAL BID, (Reported) Tramadol Hcl (Tramadol Hcl), 50 MG ORAL Q6HR, (Reported) Trazodone Hcl* (Desyrel*), 50 MG ORAL BEDTIME, (Reported) Vitamin D (Vitamin D3), 5,000 UNITS ORAL DAILY, (Reported) Scheduled PRN Melatonin (Melatonin), 3 MG ORAL BEDTIME PRN for Insomnia, (Reported) Patient History Limited by: medical condition History Provided By: Patient, Medical Record, PMD Healthcare decision maker Ayleen Osorio [phone] Resuscitation status Do Not Resuscitate Advanced Directive on File Past Medical/Surgical History Past Medical/Surgical History: (1) Elevated INR (2) Psychosis (3) History of CVA (cerebrovascular accident) (4) CAD (coronary artery disease) (5) Hemiparesis (6) ACS (acute coronary syndrome) Review of Systems Psychiatric: Reports: prior hx, anxiety, depressed feelings, emotional problems Physical Exam General Appearance: no apparent distress, alert Neurologic: oriented x 3, responsive, depressed affect Last 24 Hour Vital Signs Date Time Temp Pulse Resp B/P (MAP) Pulse Ox O2 Delivery O2 Flow Rate FiO2 09/10/18 12:00 65 09/10/18 12:00 97.2 66 18 125/68 (87) 96 09/10/18 09:33 75 18 Room Air 21 09/10/18 09:18 98.4 09/10/18 09:00 Room Air 09/10/18 08:48 69 122/61 09/10/18 08:00 70 09/10/18 08:00 98.4 69 18 122/61 (81) 96 09/10/18 04:00 98.4 70 19 127/57 (80) 94 09/10/18 04:00 70 09/10/18 00:00 98.0 72 19 123/54 (77) 93 09/10/18 00:00 69 09/09/18 23:09 70 129/64 09/09/18 21:00 Room Air 09/09/18 20:00 70 09/09/18 20:00 98.1 70 19 129/64 (85) 94 09/09/18 19:58 70 18 Room Air 21 09/09/18 17:19 Room Air 09/09/18 16:30 98.1 20 117/69 68 Room Air 09/09/18 16:00 98.1 20 123/70 (87) 68 09/09/18 13:48 154/96 09/09/18 13:30 97.9 18 107/66 99 Room Air Intake and Output 09/09/18 09/10/18 18:59 06:59 Intake Total 120 ml 360 ml Output Total 400 ml Balance 120 ml -40 ml Intake Oral 120 ml 360 ml Output Urine Total 400 ml Laboratory Tests Test 09/09/18 13:36 09/09/18 14:32 09/10/18 07:05 White Blood Count 7.1 K/UL (4.8-10.8) 5.5 K/UL (4.8-10.8) Red Blood Count 5.52 M/UL (4.70-6.10) 5.28 M/UL (4.70-6.10) Hemoglobin 15.2 G/DL (14.2-18.0) 15.3 G/DL (14.2-18.0) Hematocrit 47.6 % (42.0-52.0) 46.1 % (42.0-52.0) Mean Corpuscular Volume 86 FL (80-99) 87 FL (80-99) Mean Corpuscular Hemoglobin 27.5 PG (27.0-31.0) 29.1 PG (27.0-31.0) Mean Corpuscular Hemoglobin Concent 31.9 G/DL (32.0-36.0) L 33.3 G/DL (32.0-36.0) Red Cell Distribution Width 13.7 % (11.6-14.8) 13.9 % (11.6-14.8) Platelet Count 105 K/UL (150-450) L 104 K/UL (150-450) L Mean Platelet Volume 9.8 FL (6.5-10.1) 9.9 FL (6.5-10.1) Neutrophils (%) (Auto) 67.3 % (45.0-75.0) 59.9 % (45.0-75.0) Lymphocytes (%) (Auto) 21.7 % (20.0-45.0) 27.6 % (20.0-45.0) Monocytes (%) (Auto) 7.8 % (1.0-10.0) 8.8 % (1.0-10.0) Eosinophils (%) (Auto) 2.5 % (0.0-3.0) 2.9 % (0.0-3.0) Basophils (%) (Auto) 0.8 % (0.0-2.0) 0.9 % (0.0-2.0) Prothrombin Time 37.3 SEC (9.30-11.50) H 10.7 SEC (9.30-11.50) Prothromb Time International Ratio 3.8 (0.9-1.1) H 1.0 (0.9-1.1) Activated Partial Thromboplast Time 51 SEC (23-33) H 30 SEC (23-33) Sodium Level 142 MMOL/L (136-145) Potassium Level 3.9 MMOL/L (3.5-5.1) Chloride Level 107 MMOL/L (98-107) Carbon Dioxide Level 25 MMOL/L (21-32) Anion Gap 11 mmol/L (5-15) Blood Urea Nitrogen 14 mg/dL (7-18) Creatinine 0.8 MG/DL (0.55-1.30) Estimat Glomerular Filtration Rate > 60 mL/min (>60) Glucose Level 98 MG/DL (74-106) Calcium Level 8.6 MG/DL (8.5-10.1) Total Bilirubin 0.4 MG/DL (0.2-1.0) Aspartate Amino Transf (AST/SGOT) 87 U/L (15-37) H Alanine Aminotransferase (ALT/SGPT) 114 U/L (12-78) H Alkaline Phosphatase 95 U/L (46-116) Total Creatine Kinase 92 U/L (26-308) Troponin I 0.007 ng/mL (0.000-0.056) 0.017 ng/mL (0.000-0.056) Pro-B-Type Natriuretic Peptide 35 pg/mL (0-125) Total Protein 8.1 G/DL (6.4-8.2) Albumin 2.9 G/DL (3.4-5.0) L Globulin 5.2 g/dL Albumin/Globulin Ratio 0.6 (1.0-2.7) L Urine Color Yellow Urine Appearance Clear Urine pH 6.5 (4.5-8.0) Urine Specific [place] 1.015 (1.005-1.035) Urine Protein Negative (NEGATIVE) Urine Glucose (UA) Negative (NEGATIVE) Urine Ketones Negative (NEGATIVE) Urine Blood Negative (NEGATIVE) Urine Nitrite Negative (NEGATIVE) Urine Bilirubin Negative (NEGATIVE) Urine Urobilinogen Normal MG/DL (0.0-1.0) Urine Leukocyte Esterase 1+ (NEGATIVE) H Urine RBC 2-4 /HPF (0 - 0) H Urine WBC 5-10 /HPF (0 - 0) H Urine Squamous Epithelial Cells None /LPF (NONE/OCC) Urine Bacteria Occasional /HPF (NONE) C-Reactive Protein, Quantitative 0.8 mg/dL (0.00-0.90) Triglycerides Level 88 MG/DL (30-150) Cholesterol Level 92 MG/DL (< 200) LDL Cholesterol 48 mg/dL (<100) HDL Cholesterol 30 MG/DL (40-60) L Cholesterol/HDL Ratio 3.1 (3.3-4.4) L Thyroid Stimulating Hormone (TSH) 3.876 uiU/mL (0.358-3.740) Height (Feet): 6 Height (Inches): 4.00 Weight (Pounds): 280 Medications Current Medications Medications (Trade) Dose Ordered Sig/Hugo Route PRN Reason Start Time Stop Time Status Last Admin Dose Admin Albuterol/ Ipratropium (Albuterol/ Ipratropium) 3 ml Q4H PRN HHN Shortness of Breath 09/09/18 17:30 09/14/18 17:29 Aripiprazole (Abilify) 5 mg DAILY ORAL 09/10/18 09:00 10/10/18 08:59 09/10/18 08:48 Atorvastatin Calcium (Lipitor) 20 mg BEDTIME ORAL 09/09/18 21:00 10/09/18 20:59 09/09/18 23:09 Carisoprodol (Soma) 350 mg Q8HR ORAL 09/09/18 22:00 10/09/18 21:59 09/10/18 13:14 Clopidogrel Bisulfate (Plavix) 75 mg DAILY ORAL 09/10/18 09:00 10/10/18 08:59 09/10/18 08:48 Diltiazem HCl (Cardizem) 10 mg Q1H PRN IV heart rate more than 120, 09/09/18 17:30 10/09/18 17:29 Enalaprilat (Vasotec) 2.5 mg Q6H PRN IV sbp more than 160 09/09/18 17:30 10/09/18 17:29 Famotidine (Pepcid) 20 mg TWICE A DAY ORAL 09/09/18 18:00 10/09/18 17:59 09/10/18 08:48 Finasteride (Proscar) 5 mg DAILY ORAL 09/10/18 09:00 10/10/18 08:59 09/10/18 08:48 Gabapentin (Neurontin) 600 mg THREE TIMES A DAY ORAL 09/10/18 09:00 10/10/18 08:59 09/10/18 13:13 Heparin Sodium (Porcine) (Heparin 5000 units/ml) 5,000 units EVERY 12 HOURS SUBQ 09/09/18 21:00 10/09/18 20:59 Metoprolol Tartrate (Lopressor) 25 mg EVERY 12 HOURS ORAL 09/09/18 21:00 10/09/18 20:59 09/10/18 08:48 Morphine Sulfate (Morphine Sulfate) 2 mg Q4H PRN IVP severe Pain (Pain Scale 7-10) 09/09/18 17:30 09/16/18 17:29 09/10/18 13:15 Nitroglycerin (Ntg) 0.4 mg Q5M PRN SL Prn Chest Pain 09/09/18 17:30 10/09/18 17:29 Ondansetron HCl (Zofran) 4 mg Q6H PRN IVP Nausea & Vomiting 09/09/18 17:30 10/09/18 17:29 Polyethylene Glycol (Miralax) 17 gm DAILYPRN PRN ORAL Constipation 09/09/18 17:30 10/09/18 17:29 Sertraline HCl (Zoloft) 50 mg DAILY ORAL 09/10/18 09:00 10/10/18 08:59 09/10/18 08:48 Tamsulosin HCl (Flomax) 0.4 mg BID ORAL 09/09/18 18:00 10/09/18 17:59 09/10/18 08:48 Temazepam (Restoril) 15 mg HSPRN PRN ORAL Insomnia 09/09/18 17:30 09/16/18 17:29 Trazodone HCl (Desyrel) 50 mg BEDTIME ORAL 09/09/18 21:00 10/09/18 20:59 09/09/18 23:09 Assessment/Plan Problem List: (1) Elevated INR ICD Codes: R79.1 - Abnormal coagulation profile SNOMED: 820743986 (2) Psychosis ICD Codes: F29 - Unspecified psychosis not due to a substance or known physiological condition SNOMED: 12974484 Qualifiers: (3) History of CVA (cerebrovascular accident) ICD Codes: Z86.73 - Personal history of transient ischemic attack (TIA), and cerebral infarction without residual deficits SNOMED: 744597996 (4) CAD (coronary artery disease) ICD Codes: I25.10 - Atherosclerotic heart disease of [place] coronary artery without angina pectoris SNOMED: 98340908 (5) Hemiparesis ICD Codes: G81.90 - Hemiplegia, unspecified affecting unspecified side SNOMED: 75694314 Qualifiers: Qualified Codes: I69.359 - Hemiplegia and hemiparesis following cerebral infarction affecting unspecified side (6) ACS (acute coronary syndrome) ICD Codes: I24.9 - Acute ischemic heart disease, unspecified SNOMED: 764635181 Status: stable Assessment/Plan abilify 5mg qam trazadone 50mg qhs provided ro/Yolanda Osuna MD Sep 10, 2018 13:20
--- NOTE | 2018-09-10 13:26 | General Progress Note ---
Assessment/Plan Problem List: (1) Elevated INR ICD Codes: R79.1 - Abnormal coagulation profile SNOMED: 932561799 (2) Psychosis ICD Codes: F29 - Unspecified psychosis not due to a substance or known physiological condition SNOMED: 68140020 Qualifiers: (3) History of CVA (cerebrovascular accident) ICD Codes: Z86.73 - Personal history of transient ischemic attack (TIA), and cerebral infarction without residual deficits SNOMED: 450882223 (4) CAD (coronary artery disease) ICD Codes: I25.10 - Atherosclerotic heart disease of [place] coronary artery without angina pectoris SNOMED: 25145792 (5) Hemiparesis ICD Codes: G81.90 - Hemiplegia, unspecified affecting unspecified side SNOMED: 09698277 Qualifiers: Qualified Codes: I69.359 - Hemiplegia and hemiparesis following cerebral infarction affecting unspecified side (6) ACS (acute coronary syndrome) ICD Codes: I24.9 - Acute ischemic heart disease, unspecified SNOMED: 137637244 Status: stable, progressing Assessment/Plan abilify 5mg qam trazadone 50mg qhs provided ro/st Subjective Date patient seen: Sep 10, 2018 Neurologic/Psychiatric: Reports: anxiety, depressed, emotional problems Allergies: Coded Allergies: ACETAMINOPHEN (Verified Allergy, Unknown, 08/28/18) ASPIRIN (Verified Allergy, Unknown, 08/28/18) KETOROLAC (Verified Allergy, Unknown, 08/28/18) NSAIDS (NON-STEROIDAL ANTI-INFLAMMA (Verified Allergy, Unknown, 09/09/18) Objective Last 24 Hour Vital Signs Date Time Temp Pulse Resp B/P (MAP) Pulse Ox O2 Delivery O2 Flow Rate FiO2 09/10/18 12:00 65 09/10/18 12:00 97.2 66 18 125/68 (87) 96 09/10/18 09:33 75 18 Room Air 21 09/10/18 09:18 98.4 09/10/18 09:00 Room Air 09/10/18 08:48 69 122/61 09/10/18 08:00 70 09/10/18 08:00 98.4 69 18 122/61 (81) 96 09/10/18 04:00 98.4 70 19 127/57 (80) 94 09/10/18 04:00 70 10/26/18 00:00 98.0 72 19 123/54 (77) 93 09/10/18 00:00 69 09/09/18 23:09 70 129/64 09/09/18 21:00 Room Air 09/09/18 20:00 70 09/09/18 20:00 98.1 70 19 129/64 (85) 94 09/09/18 19:58 70 18 Room Air 21 09/09/18 17:19 Room Air 09/09/18 16:30 98.1 20 117/69 68 Room Air 09/09/18 16:00 98.1 20 123/70 (87) 68 09/09/18 13:48 154/96 09/09/18 13:30 97.9 18 107/66 99 Room Air Intake and Output 09/09/18 09/10/18 18:59 06:59 Intake Total 120 ml 360 ml Output Total 400 ml Balance 120 ml -40 ml Intake Oral 120 ml 360 ml Output Urine Total 400 ml Laboratory Tests 09/09/18 13:36: White Blood Count 7.1, Red Blood Count 5.52, Hemoglobin 15.2, Hematocrit 47.6, Mean Corpuscular Volume 86, Mean Corpuscular Hemoglobin 27.5, Mean Corpuscular Hemoglobin Concent 31.9L, Red Cell Distribution Width 13.7, Platelet Count 105L , Mean Platelet Volume 9.8, Neutrophils (%) (Auto) 67.3, Lymphocytes (%) (Auto) 21.7, Monocytes (%) (Auto) 7.8, Eosinophils (%) (Auto) 2.5, Basophils (%) (Auto ) 0.8, Prothrombin Time 37.3H, Prothromb Time International Ratio 3.8H, Activated Partial Thromboplast Time 51H, Sodium Level 142, Potassium Level 3.9, Chloride Level 107, Carbon Dioxide Level 25, Anion Gap 11, Blood Urea Nitrogen 14, Creatinine 0.8, Estimat Glomerular Filtration Rate > 60, Glucose Level 98, Calcium Level 8.6, Total Bilirubin 0.4, Aspartate Amino Transf (AST/SGOT) 87H, Alanine Aminotransferase (ALT/SGPT) 114H, Alkaline Phosphatase 95, Total Creatine Kinase 92, Troponin I 0.007, Pro-B-Type Natriuretic Peptide 35, Total Protein 8.1, Albumin 2.9L, Globulin 5.2, Albumin/Globulin Ratio 0.6L 09/09/18 14:32: Urine Color Yellow, Urine Appearance Clear, Urine pH 6.5, Urine Specific [place] 1.015, Urine Protein Negative, Urine Glucose (UA) Negative, Urine Ketones Negative, Urine Blood Negative, Urine Nitrite Negative, Urine Bilirubin Negative, Urine Urobilinogen Normal, Urine Leukocyte Esterase 1+H, Urine RBC 2- 4H, Urine WBC 5-10H, Urine Squamous Epithelial Cells None, Urine Bacteria Occasional 09/10/18 07:05: White Blood Count 5.5, Red Blood Count 5.28, Hemoglobin 15.3, Hematocrit 46.1, Mean Corpuscular Volume 87, Mean Corpuscular Hemoglobin 29.1, Mean Corpuscular Hemoglobin Concent 33.3, Red Cell Distribution Width 13.9, Platelet Count 104L, Mean Platelet Volume 9.9, Neutrophils (%) (Auto) 59.9, Lymphocytes (%) (Auto) 27.6, Monocytes (%) (Auto) 8.8, Eosinophils (%) (Auto) 2.9, Basophils (%) (Auto ) 0.9, Prothrombin Time 10.7, Prothromb Time International Ratio 1.0, Activated Partial Thromboplast Time 30, Troponin I 0.017, C-Reactive Protein, Quantitative 0.8, Triglycerides Level 88, Cholesterol Level 92, LDL Cholesterol 48, HDL Cholesterol 30L, Cholesterol/HDL Ratio 3.1L, Thyroid Stimulating Hormone (TSH) 3.876H Height (Feet): 6 Height (Inches): 4.00 Weight (Pounds): 280 General Appearance: no apparent distress, alert Neurologic: oriented x 3, responsive, depressed affect Yolanda Ford MD Sep 10, 2018 13:26
[2018-09-10 16:00] VITALS: BP 130/66
[2018-09-10 20:00] VITALS: BP 140/74
[2018-09-10] MEDS: TraZODone 50mg tab ORAL SCH (20:42)
[2018-09-10] MEDS: Atorvastatin 20mg tab ORAL SCH (20:43)
[2018-09-11] VITALS: BP 123/70
[2018-09-11] MEDS: Morphine Sulfate 2mg/ml Inj IVP PRN ×5 (03:14→20:33)
[2018-09-11 04:00] VITALS: BP 117/61
--- NOTE | 2018-09-11 07:29 | Pulmonology Progress Note ---
Assessment/Plan Assessment/Plan ASSESSMENT Chest pain possible acute coronary syndrome CAD with history of [place] Coagulopathy History of hyperlipidemia Hypertension Cerebrovascular disease with history of CVA with left hemiparesis BPH Transaminitis PLAN OF CARE telemetry serial troponin negative , EKG no acute ischemci changes patient ruled out for acute [place] cardio follows ECHO proved to be technically difficult study but pEF to the extent visualized on Plavix and statin ( allergic to ASA) cardio follows further recommendations as per cardio lipid panel unremarkable GI prophylaxis pain management blood pressure management trend LFT , hx of hepatitis /hepatitis panel coagulopathy resolved psych meds resumed DNR/DNI status case discussed and evaluated by supervising physician Subjective Allergies: Coded Allergies: ACETAMINOPHEN (Verified Allergy, Unknown, 08/28/18) ASPIRIN (Verified Allergy, Unknown, 08/28/18) KETOROLAC (Verified Allergy, Unknown, 08/28/18) NSAIDS (NON-STEROIDAL ANTI-INFLAMMA (Verified Allergy, Unknown, 09/09/18) Subjective denies chest pain, SOB SR on tele Objective Last 24 Hour Vital Signs Date Time Temp Pulse Resp B/P (MAP) Pulse Ox O2 Delivery O2 Flow Rate FiO2 09/11/18 04:00 68 09/11/18 04:00 98.4 71 16 117/61 (79) 96 09/11/18 00:00 70 09/11/18 00:00 98.1 70 17 123/70 (87) 94 09/10/18 21:00 Room Air 09/10/18 20:42 73 130/66 09/10/18 20:00 76 09/10/18 20:00 98.1 75 16 140/74 (96) 95 09/10/18 19:34 73 18 Room Air 21 09/10/18 16:00 76 09/10/18 16:00 98.9 72 18 130/66 (87) 94 09/10/18 13:44 97.2 09/10/18 13:44 97.2 09/10/18 12:00 65 09/10/18 12:00 97.2 66 18 125/68 (87) 96 09/10/18 09:33 75 18 Room Air 21 09/10/18 09:00 Room Air 09/10/18 08:48 69 122/61 09/10/18 08:00 70 09/10/18 08:00 98.4 69 18 122/61 (81) 96 Intake and Output 09/10/18 09/11/18 19:00 07:00 Intake Total 1600 ml Output Total 720 ml Balance 1600 ml -720 ml Other 1600 ml Output Urine Total 720 ml # Voids 3 General Appearance: no acute distress - obese male HEENT: normocephalic, atraumatic, anicteric Respiratory/Chest: chest wall non-tender, no respiratory distress, no accessory muscle use Cardiovascular: normal rate - SR on tele Abdomen: soft, non tender Extremities: no edema Neurologic/Psychiatric: alert, responsive, normal mood/affect, other - L hemiparesis Microbiology Date/Time Source Procedure Growth Status 09/09/18 17:00 Rectum VRE Culture - Final NO VANCOMYCIN RESISTANT ENTEROCOCCUS ... Complete 09/09/18 17:00 Rectum - Final NO CARBAPENEM-RESISTANT ENTEROBACTERI... Complete Current Medications Medications (Trade) Dose Ordered Sig/Hugo Route PRN Reason Start Time Stop Time Status Last Admin Dose Admin Albuterol/ Ipratropium (Albuterol/ Ipratropium) 3 ml Q4H PRN HHN Shortness of Breath 09/09/18 17:30 09/14/18 17:29 Aripiprazole (Abilify) 5 mg DAILY ORAL 09/10/18 09:00 10/10/18 08:59 09/10/18 08:48 Atorvastatin Calcium (Lipitor) 20 mg BEDTIME ORAL 09/09/18 21:00 10/09/18 20:59 09/10/18 20:43 Carisoprodol (Soma) 350 mg Q8HR ORAL 09/09/18 22:00 10/09/18 21:59 09/11/18 05:57 Clopidogrel Bisulfate (Plavix) 75 mg DAILY ORAL 09/10/18 09:00 10/10/18 08:59 09/10/18 08:48 Diltiazem HCl (Cardizem) 10 mg Q1H PRN IV heart rate more than 120, 09/09/18 17:30 10/09/18 17:29 Enalaprilat (Vasotec) 2.5 mg Q6H PRN IV sbp more than 160 09/09/18 17:30 10/09/18 17:29 Famotidine (Pepcid) 20 mg TWICE A DAY ORAL 09/09/18 18:00 10/09/18 17:59 09/10/18 19:22 Finasteride (Proscar) 5 mg DAILY ORAL 09/10/18 09:00 10/10/18 08:59 09/10/18 08:48 Gabapentin (Neurontin) 600 mg THREE TIMES A DAY ORAL 09/10/18 09:00 10/10/18 08:59 09/10/18 19:22 Heparin Sodium (Porcine) (Heparin 5000 units/ml) 5,000 units EVERY 12 HOURS SUBQ 09/09/18 21:00 10/09/18 20:59 Metoprolol Tartrate (Lopressor) 25 mg EVERY 12 HOURS ORAL 09/09/18 21:00 10/09/18 20:59 09/10/18 20:42 Morphine Sulfate (Morphine Sulfate) 2 mg Q4H PRN IVP severe Pain (Pain Scale 7-10) 09/09/18 17:30 09/16/18 17:29 09/11/18 03:14 Nitroglycerin (Ntg) 0.4 mg Q5M PRN SL Prn Chest Pain 09/09/18 17:30 10/09/18 17:29 Ondansetron HCl (Zofran) 4 mg Q6H PRN IVP Nausea & Vomiting 09/09/18 17:30 10/09/18 17:29 Polyethylene Glycol (Miralax) 17 gm DAILYPRN PRN ORAL Constipation 09/09/18 17:30 10/09/18 17:29 Sertraline HCl (Zoloft) 50 mg DAILY ORAL 09/10/18 09:00 10/10/18 08:59 09/10/18 08:48 Tamsulosin HCl (Flomax) 0.4 mg BID ORAL 09/09/18 18:00 10/09/18 17:59 09/10/18 20:42 Temazepam (Restoril) 15 mg HSPRN PRN ORAL Insomnia 09/09/18 17:30 09/16/18 17:29 Trazodone HCl (Desyrel) 50 mg BEDTIME ORAL 09/09/18 21:00 10/09/18 20:59 09/10/18 20:42 Sharlene Chicas NP Sep 11, 2018 07:29
[2018-09-11 08:00] VITALS: BP 128/72
[2018-09-11] MEDS: Sertraline 50mg tab ORAL SCH (08:00)
[2018-09-11] MEDS: Tamsulosin 0.4mg cap ORAL SCH ×2 (08:00→17:35)
[2018-09-11] MEDS: Metoprolol 25mg tab ORAL SCH ×2 (08:01→20:32)
[2018-09-11] MEDS: Heparin 5000 units/ml inj SUBQ SCH ×3 (08:01→21:25)
[2018-09-11 12:00] VITALS: BP 127/65
[2018-09-11 16:00] VITALS: BP 133/62
--- NOTE | 2018-09-11 16:18 | Cardiology Progress Note ---
Assessment/Plan Assessment/Plan Assessment: (1) History of CVA (cerebrovascular accident) (2) Psychosis (3) Hemiparesis (4) CAD (coronary artery disease) (5) Chest pain Plan: Serial EKG/Troponin Echocardiogram -> preserved LVEF Nitro prn chest pain Stress test prior to d/c plavix (ASA allergy) Statin Subjective Cardiovascular: Reports: no symptoms Respiratory: Reports: no symptoms Gastrointestinal/Abdominal: Reports: no symptoms Genitourinary: Reports: no symptoms Subjective No CP, no acute events, vitals stable, EKG normal sinus rhythm Objective Last 24 Hour Vital Signs Date Time Temp Pulse Resp B/P (MAP) Pulse Ox O2 Delivery O2 Flow Rate FiO2 09/11/18 14:56 98.4 09/11/18 12:34 98.4 09/11/18 12:00 98.6 71 20 127/65 (85) 94 09/11/18 12:00 68 09/11/18 09:00 Room Air 09/11/18 08:01 68 117/61 09/11/18 08:00 71 09/11/18 08:00 97.8 87 20 128/72 (90) 98 09/11/18 07:10 72 18 Room Air 21 09/11/18 04:00 68 09/11/18 04:00 98.4 71 16 117/61 (79) 96 09/11/18 00:00 70 09/11/18 00:00 98.1 70 17 123/70 (87) 94 09/10/18 21:00 Room Air 09/10/18 20:42 73 130/66 09/10/18 20:00 76 09/10/18 20:00 98.1 75 16 140/74 (96) 95 09/10/18 19:34 73 18 Room Air 21 General Appearance: no apparent distress, alert EENT: PERRL/EOMI, normal ENT inspection, TMs normal Neck: non-tender, normal alignment, supple, normal inspection, no JVD Rhythm: NSR Cardiovascular: normal peripheral pulses, normal rate, regular rhythm Respiratory/Chest: chest wall non-tender, lungs clear Abdomen: normal bowel sounds, non tender, soft Extremities: normal range of motion, non-tender 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 Complete 09/09/18 17:00 Rectum - Final NO CARBAPENEM-RESISTANT ENTEROBACTERI... Complete Will Park MD Sep 11, 2018 16:18
[2018-09-11 20:00] VITALS: BP 132/71
[2018-09-11] MEDS: TraZODone 50mg tab ORAL SCH (20:32)
[2018-09-11] MEDS: Atorvastatin 20mg tab ORAL SCH (20:32)
--- NOTE | 2018-09-11 23:29 | General Progress Note ---
Assessment/Plan Problem List: (1) Elevated INR ICD Codes: R79.1 - Abnormal coagulation profile SNOMED: 516939745 (2) Psychosis ICD Codes: F29 - Unspecified psychosis not due to a substance or known physiological condition SNOMED: 25707767 Qualifiers: (3) History of CVA (cerebrovascular accident) ICD Codes: Z86.73 - Personal history of transient ischemic attack (TIA), and cerebral infarction without residual deficits SNOMED: 724960130 (4) CAD (coronary artery disease) ICD Codes: I25.10 - Atherosclerotic heart disease of [place] coronary artery without angina pectoris SNOMED: 52502035 (5) Hemiparesis ICD Codes: G81.90 - Hemiplegia, unspecified affecting unspecified side SNOMED: 02377007 Qualifiers: Qualified Codes: I69.359 - Hemiplegia and hemiparesis following cerebral infarction affecting unspecified side (6) ACS (acute coronary syndrome) ICD Codes: I24.9 - Acute ischemic heart disease, unspecified SNOMED: 455332597 Status: stable, progressing Assessment/Plan abilify 5mg qam trazadone 50mg qhs provided ro/st Subjective Neurologic/Psychiatric: Reports: anxiety, depressed, emotional problems Allergies: Coded Allergies: ACETAMINOPHEN (Verified Allergy, Unknown, 08/28/18) ASPIRIN (Verified Allergy, Unknown, 08/28/18) KETOROLAC (Verified Allergy, Unknown, 08/28/18) NSAIDS (NON-STEROIDAL ANTI-INFLAMMA (Verified Allergy, Unknown, 09/09/18) Objective Last 24 Hour Vital Signs Date Time Temp Pulse Resp B/P (MAP) Pulse Ox O2 Delivery O2 Flow Rate FiO2 09/11/18 21:12 80 18 Room Air 21 09/11/18 21:00 Room Air 09/11/18 20:32 81 132/71 09/11/18 20:00 81 09/11/18 20:00 97.6 81 20 132/71 (91) 96 09/11/18 16:46 98.4 09/11/18 16:00 72 09/11/18 16:00 97.7 74 20 133/62 (85) 95 09/11/18 14:56 98.4 09/11/18 12:00 98.6 71 20 127/65 (85) 94 09/11/18 12:00 68 09/11/18 09:00 Room Air 10/27/18 08:01 68 117/61 09/11/18 08:00 71 09/11/18 08:00 97.8 87 20 128/72 (90) 98 09/11/18 07:10 72 18 Room Air 21 09/11/18 04:00 68 09/11/18 04:00 98.4 71 16 117/61 (79) 96 09/11/18 00:00 70 09/11/18 00:00 98.1 70 17 123/70 (87) 94 Intake and Output 09/10/18 09/11/18 19:00 07:00 Intake Total 1600 ml Output Total 720 ml Balance 1600 ml -720 ml Other 1600 ml Output Urine Total 720 ml # Voids 3 Laboratory Tests 09/11/18 17:14: Troponin I 0.000 Height (Feet): 6 Height (Inches): 4.00 Weight (Pounds): 280 General Appearance: no apparent distress, alert Yolanda Ford MD Sep 11, 2018 23:29
[2018-09-12] VITALS: BP 133/91
[2018-09-12] MEDS: Morphine Sulfate 2mg/ml Inj IVP PRN ×5 (03:36→20:35)
[2018-09-12 04:00] VITALS: BP 118/66
[2018-09-12 07:30] LABS: ALANINE AMINOTRANSFERASE 106 U/L (12-78); ALBUMIN 2.7 G/DL (3.4-5.0); ALBUMIN/GLOBULIN RATIO 0.5 (1.0-2.7); ALKALINE PHOSPHATASE 91 U/L (46-116); ANION GAP 5 mmol/L (5-15); ASPARTATE AMINO TRANSFERASE 83 U/L (15-37); BILIRUBIN,TOTAL 0.5 MG/DL (0.2-1.0); BLOOD UREA NITROGEN 18 mg/dL (7-18); CALCIUM 8.5 MG/DL (8.5-10.1); CARBON DIOXIDE 25 MMOL/L (21-32); CHLORIDE 110 MMOL/L (98-107); CREATININE 0.9 MG/DL (0.55-1.30); POTASSIUM 3.8 MMOL/L (3.5-5.1); SODIUM 140 MMOL/L (136-145)
--- NOTE | 2018-09-12 07:42 | Pulmonology Progress Note ---
Assessment/Plan Assessment/Plan ASSESSMENT Chest pain possible acute coronary syndrome CAD with history of [place] Coagulopathy History of hyperlipidemia Hypertension Cerebrovascular disease with history of CVA with left hemiparesis BPH Transaminitis Psychosis PLAN OF CARE telemetry serial troponin negative , EKG no acute ischemci changes patient ruled out for acute [place] cardio follows ECHO proved to be technically difficult study but pEF to the extent visualized on Plavix and statin ( allergic to ASA) cardio follows, recommended stress test prior to dc lipid panel unremarkable GI prophylaxis pain management blood pressure management trend LFT-remains same , hx of hepatitis /hepatitis panel pending coagulopathy resolved psych follows psych meds optimized DNR/DNI status per cardio - if need stress test as inpatient, otherwise transfer to [facility] floor and dc plan case discussed and evaluated by supervising physician Subjective Allergies: Coded Allergies: ACETAMINOPHEN (Verified Allergy, Unknown, 08/28/18) ASPIRIN (Verified Allergy, Unknown, 08/28/18) KETOROLAC (Verified Allergy, Unknown, 08/28/18) NSAIDS (NON-STEROIDAL ANTI-INFLAMMA (Verified Allergy, Unknown, 09/09/18) Subjective denies chest pain, SOB SR on tele Objective Last 24 Hour Vital Signs Date Time Temp Pulse Resp B/P (MAP) Pulse Ox O2 Delivery O2 Flow Rate FiO2 09/12/18 04:00 98.0 70 20 118/66 (83) 95 09/12/18 04:00 69 09/12/18 00:00 79 09/12/18 00:00 97.3 79 20 133/91 (105) 95 09/11/18 21:12 80 18 Room Air 21 09/11/18 21:00 Room Air 09/11/18 20:32 81 132/71 09/11/18 20:00 81 09/11/18 20:00 97.6 81 20 132/71 (91) 96 09/11/18 16:46 98.4 09/11/18 16:00 72 09/11/18 16:00 97.7 74 20 133/62 (85) 95 09/11/18 14:56 98.4 09/11/18 12:00 98.6 71 20 127/65 (85) 94 09/11/18 12:00 68 09/11/18 09:00 Room Air 09/11/18 08:01 68 117/61 09/11/18 08:00 71 09/11/18 08:00 97.8 87 20 128/72 (90) 98 Intake and Output 09/11/18 09/12/18 19:00 07:00 Intake Total 1320 ml Output Total 800 ml 900 ml Balance 520 ml -900 ml Intake Oral 1320 ml Output Urine Total 800 ml 900 ml Objective General Appearance: no acute distress - obese male HEENT: normocephalic, atraumatic, anicteric Respiratory/Chest: chest wall non-tender, no respiratory distress, no accessory muscle use Cardiovascular: normal rate - SR on tele Abdomen: soft, non tender Extremities: no edema Neurologic/Psychiatric: alert, responsive, normal mood/affect, L hemiparesis Microbiology Date/Time Source Procedure Growth Status 09/09/18 17:00 Nasal Nares MRSA Culture - Final Staphylococcus Aureus - Mrsa Complete 09/09/18 17:00 Rectum VRE Culture - Final NO VANCOMYCIN RESISTANT ENTEROCOCCUS ... Complete 09/09/18 17:00 Rectum - Final NO CARBAPENEM-RESISTANT ENTEROBACTERI... Complete Laboratory Tests 09/11/18 17:14: Troponin I 0.000 09/12/18 05:05: Sodium Level 140, Potassium Level 3.8, Chloride Level 110H, Carbon Dioxide Level 25, Anion Gap 5, Blood Urea Nitrogen 18, Creatinine 0.9, Estimat Glomerular Filtration Rate > 60, Glucose Level 107H, Calcium Level 8.5, Total Bilirubin 0.5, Aspartate Amino Transf (AST/SGOT) 83H, Alanine Aminotransferase ( ALT/SGPT) 106H, Alkaline Phosphatase 91, Total Protein 7.8, Albumin 2.7L, Globulin 5.1, Albumin/Globulin Ratio 0.5L, Hepatitis A IgM Antibody [Pending], Hepatitis B Surface Antigen [Pending], Hepatitis B Core IgM Antibody [Pending], Hepatitis C Antibody [Pending] Current Medications Medications (Trade) Dose Ordered Sig/Hugo Route PRN Reason Start Time Stop Time Status Last Admin Dose Admin Albuterol/ Ipratropium (Albuterol/ Ipratropium) 3 ml Q4H PRN HHN Shortness of Breath 09/09/18 17:30 09/14/18 17:29 Aripiprazole (Abilify) 5 mg DAILY ORAL 09/10/18 09:00 10/10/18 08:59 09/11/18 08:00 Atorvastatin Calcium (Lipitor) 20 mg BEDTIME ORAL 09/09/18 21:00 10/09/18 20:59 09/11/18 20:32 Carisoprodol (Soma) 350 mg Q8HR ORAL 09/09/18 22:00 10/09/18 21:59 09/12/18 05:46 Clopidogrel Bisulfate (Plavix) 75 mg DAILY ORAL 09/10/18 09:00 10/10/18 08:59 09/11/18 08:00 Diltiazem HCl (Cardizem) 10 mg Q1H PRN IV heart rate more than 120, 09/09/18 17:30 10/09/18 17:29 Enalaprilat (Vasotec) 2.5 mg Q6H PRN IV sbp more than 160 09/09/18 17:30 10/09/18 17:29 Famotidine (Pepcid) 20 mg TWICE A DAY ORAL 09/09/18 18:00 10/09/18 17:59 09/11/18 17:35 Finasteride (Proscar) 5 mg DAILY ORAL 09/10/18 09:00 10/10/18 08:59 09/11/18 08:01 Gabapentin (Neurontin) 600 mg THREE TIMES A DAY ORAL 09/10/18 09:00 10/10/18 08:59 09/11/18 17:35 Heparin Sodium (Porcine) (Heparin 5000 units/ml) 5,000 units EVERY 12 HOURS SUBQ 09/09/18 21:00 10/09/18 20:59 09/11/18 21:25 Metoprolol Tartrate (Lopressor) 25 mg EVERY 12 HOURS ORAL 09/09/18 21:00 10/09/18 20:59 09/11/18 20:32 Morphine Sulfate (Morphine Sulfate) 2 mg Q4H PRN IVP severe Pain (Pain Scale 7-10) 09/09/18 17:30 09/16/18 17:29 09/12/18 03:36 Nitroglycerin (Ntg) 0.4 mg Q5M PRN SL Prn Chest Pain 09/09/18 17:30 10/09/18 17:29 Ondansetron HCl (Zofran) 4 mg Q6H PRN IVP Nausea & Vomiting 09/09/18 17:30 10/09/18 17:29 Polyethylene Glycol (Miralax) 17 gm DAILYPRN PRN ORAL Constipation 09/09/18 17:30 10/09/18 17:29 Sertraline HCl (Zoloft) 50 mg DAILY ORAL 09/10/18 09:00 10/10/18 08:59 09/11/18 08:00 Tamsulosin HCl (Flomax) 0.4 mg BID ORAL 09/09/18 18:00 10/09/18 17:59 09/11/18 17:35 Temazepam (Restoril) 15 mg HSPRN PRN ORAL Insomnia 09/09/18 17:30 09/16/18 17:29 Trazodone HCl (Desyrel) 50 mg BEDTIME ORAL 09/09/18 21:00 10/09/18 20:59 09/11/18 20:32 Sharlene Chicas NP Sep 12, 2018 07:42
[2018-09-12 08:00] VITALS: BP 133/67
[2018-09-12] MEDS: Tamsulosin 0.4mg cap ORAL SCH ×2 (08:49→18:01)
[2018-09-12] MEDS: Sertraline 50mg tab ORAL SCH (08:49)
[2018-09-12] MEDS: Metoprolol 25mg tab ORAL SCH ×2 (08:49→21:35)
[2018-09-12] MEDS: Heparin 5000 units/ml inj SUBQ SCH ×2 (08:50→21:44)
[2018-09-12 12:00] VITALS: BP 130/73
[2018-09-12 16:00] VITALS: BP 131/70
[2018-09-12 20:00] VITALS: BP 130/60
[2018-09-12] MEDS: TraZODone 50mg tab ORAL SCH (21:34)
[2018-09-12] MEDS: Atorvastatin 20mg tab ORAL SCH (21:35)
--- NOTE | 2018-09-12 22:38 | Cardiology Progress Note ---
Assessment/Plan Status: stable Assessment/Plan Assessment: (1) History of CVA (cerebrovascular accident) (2) Psychosis (3) Hemiparesis (4) CAD (coronary artery disease) (5) Chest pain Plan: Serial EKG/Troponin Echocardiogram -> preserved LVEF Nitro prn chest pain Stress test prior to d/c plavix (ASA allergy) Statin Subjective Cardiovascular: Reports: no symptoms Respiratory: Reports: no symptoms Gastrointestinal/Abdominal: Reports: no symptoms Genitourinary: Reports: no symptoms Subjective No CP, no acute events, vitals stable, EKG normal sinus rhythm Objective Last 24 Hour Vital Signs Date Time Temp Pulse Resp B/P (MAP) Pulse Ox O2 Delivery O2 Flow Rate FiO2 09/12/18 21:35 72 134/62 09/12/18 21:00 Room Air 09/12/18 20:15 76 18 Room Air 21 09/12/18 20:00 76 09/12/18 20:00 97.9 79 20 130/60 (83) 98 09/12/18 16:39 97.0 09/12/18 16:00 97.0 79 20 131/70 (90) 96 09/12/18 16:00 71 09/12/18 14:06 97.9 09/12/18 12:00 73 09/12/18 12:00 97.9 68 20 130/73 (92) 98 09/12/18 09:00 Room Air 09/12/18 09:00 Room Air 09/12/18 08:49 64 133/67 09/12/18 08:00 74 09/12/18 08:00 96.7 64 20 133/67 (89) 97 09/12/18 07:41 71 18 Room Air 21 09/12/18 04:00 98.0 70 20 118/66 (83) 95 09/12/18 04:00 69 09/12/18 00:00 79 09/12/18 00:00 97.3 79 20 133/91 (105) 95 General Appearance: no apparent distress, alert EENT: PERRL/EOMI, normal ENT inspection, TMs normal, pharynx normal Neck: non-tender, normal alignment, supple, normal inspection, no JVD Rhythm: NSR Cardiovascular: normal peripheral pulses, normal rate, regular rhythm Respiratory/Chest: chest wall non-tender, lungs clear, normal breath sounds Abdomen: normal bowel sounds, non tender, soft Extremities: normal range of motion, non-tender, normal inspection 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, no motor/sensory deficits Intake and Output 09/11/18 09/12/18 19:00 07:00 Intake Total 1320 ml Output Total 800 ml 900 ml Balance 520 ml -900 ml Intake Oral 1320 ml Output Urine Total 800 ml 900 ml Laboratory Tests Test 09/12/18 05:05 Sodium Level 140 MMOL/L (136-145) Potassium Level 3.8 MMOL/L (3.5-5.1) Chloride Level 110 MMOL/L (98-107) H Carbon Dioxide Level 25 MMOL/L (21-32) Anion Gap 5 mmol/L (5-15) Blood Urea Nitrogen 18 mg/dL (7-18) Creatinine 0.9 MG/DL (0.55-1.30) Estimat Glomerular Filtration Rate > 60 mL/min (>60) Glucose Level 107 MG/DL (74-106) H Calcium Level 8.5 MG/DL (8.5-10.1) Total Bilirubin 0.5 MG/DL (0.2-1.0) Aspartate Amino Transf (AST/SGOT) 83 U/L (15-37) H Alanine Aminotransferase (ALT/SGPT) 106 U/L (12-78) H Alkaline Phosphatase 91 U/L (46-116) Total Protein 7.8 G/DL (6.4-8.2) Albumin 2.7 G/DL (3.4-5.0) L Globulin 5.1 g/dL Albumin/Globulin Ratio 0.5 (1.0-2.7) L Hepatitis A IgM Antibody Pending Hepatitis B Surface Antigen Pending Hepatitis B Core IgM Antibody Pending Hepatitis C Antibody Pending Will Park MD Sep 12, 2018 22:38
[2018-09-13] VITALS: BP 125/56
[2018-09-13] MEDS: Morphine Sulfate 2mg/ml Inj IVP PRN ×4 (01:40→14:37)
[2018-09-13 04:00] VITALS: BP 121/59
[2018-09-13] MEDS ORDERED: Lexiscan 0.4mg/5ml syringe IV SCH (06:00)
[2018-09-13] MEDS: Metoprolol 25mg tab ORAL SCH (07:43)
[2018-09-13] MEDS: Heparin 5000 units/ml inj SUBQ SCH (07:55)
[2018-09-13 08:00] VITALS: BP 140/77
[2018-09-13] MEDS: Sertraline 50mg tab ORAL SCH (08:18)
[2018-09-13] MEDS: Tamsulosin 0.4mg cap ORAL SCH ×2 (08:18→18:11)
--- NOTE | 2018-09-13 11:07 | Pulmonology Progress Note ---
Assessment/Plan Problems: (1) CAD (coronary artery disease) (2) History of CVA (cerebrovascular accident) (3) ACS (acute coronary syndrome) (4) Psychosis Assessment/Plan doing better no new complains stress test in process symptomatic treatment Subjective ROS Limited/Unobtainable: No Constitutional: Reports: no symptoms HEENT: Repors: no symptoms Respiratory: Reports: no symptoms Allergies: Coded Allergies: ACETAMINOPHEN (Verified Allergy, Unknown, 08/28/18) ASPIRIN (Verified Allergy, Unknown, 08/28/18) KETOROLAC (Verified Allergy, Unknown, 08/28/18) NSAIDS (NON-STEROIDAL ANTI-INFLAMMA (Verified Allergy, Unknown, 09/09/18) Objective Last 24 Hour Vital Signs Date Time Temp Pulse Resp B/P (MAP) Pulse Ox O2 Delivery O2 Flow Rate FiO2 09/13/18 09:48 81 18 Room Air 21 09/13/18 09:00 Room Air 09/13/18 08:00 70 09/13/18 08:00 97.2 70 20 140/77 (98) 95 09/13/18 07:43 61 121/59 09/13/18 04:00 97.2 61 20 121/59 (79) 96 09/13/18 04:00 61 09/13/18 00:00 97.0 88 20 125/56 (79) 98 09/13/18 00:00 74 09/12/18 21:35 72 134/62 09/12/18 21:00 Room Air 09/12/18 20:15 76 18 Room Air 21 09/12/18 20:00 76 09/12/18 20:00 97.9 79 20 130/60 (83) 98 09/12/18 16:39 97.0 09/12/18 16:00 97.0 79 20 131/70 (90) 96 09/12/18 16:00 71 09/12/18 14:06 97.9 09/12/18 12:00 73 09/12/18 12:00 97.9 68 20 130/73 (92) 98 Intake and Output 09/12/18 09/13/18 19:00 07:00 Intake Total 800 ml 180 ml Output Total 550 ml 780 ml Balance 250 ml -600 ml Intake Oral 800 ml 180 ml Output Urine Total 550 ml 780 ml General Appearance: WD/WN HEENT: normocephalic, atraumatic Cardiovascular: normal peripheral pulses, normal rate, regular rhythm Abdomen: normal bowel sounds, soft, non tender Genitourinary: normal external genitalia Skin: no rash Current Medications Medications (Trade) Dose Ordered Sig/Hugo Route PRN Reason Start Time Stop Time Status Last Admin Dose Admin Albuterol/ Ipratropium (Albuterol/ Ipratropium) 3 ml Q4H PRN HHN Shortness of Breath 09/09/18 17:30 09/14/18 17:29 Aripiprazole (Abilify) 5 mg DAILY ORAL 09/10/18 09:00 10/10/18 08:59 09/13/18 08:18 Atorvastatin Calcium (Lipitor) 20 mg BEDTIME ORAL 09/09/18 21:00 10/09/18 20:59 09/12/18 21:35 Carisoprodol (Soma) 350 mg Q8HR ORAL 09/09/18 22:00 10/09/18 21:59 09/13/18 05:51 Clopidogrel Bisulfate (Plavix) 75 mg DAILY ORAL 09/10/18 09:00 10/10/18 08:59 09/13/18 08:18 Diltiazem HCl (Cardizem) 10 mg Q1H PRN IV heart rate more than 120, 09/09/18 17:30 10/09/18 17:29 Enalaprilat (Vasotec) 2.5 mg Q6H PRN IV sbp more than 160 09/09/18 17:30 10/09/18 17:29 Famotidine (Pepcid) 20 mg TWICE A DAY ORAL 09/09/18 18:00 10/09/18 17:59 09/13/18 08:18 Finasteride (Proscar) 5 mg DAILY ORAL 09/10/18 09:00 10/10/18 08:59 09/13/18 08:18 Gabapentin (Neurontin) 600 mg THREE TIMES A DAY ORAL 09/10/18 09:00 10/10/18 08:59 09/13/18 08:18 Heparin Sodium (Porcine) (Heparin 5000 units/ml) 5,000 units EVERY 12 HOURS SUBQ 09/09/18 21:00 10/09/18 20:59 09/12/18 21:44 Metoprolol Tartrate (Lopressor) 25 mg EVERY 12 HOURS ORAL 09/09/18 21:00 10/09/18 20:59 09/12/18 21:35 Morphine Sulfate (Morphine Sulfate) 2 mg Q4H PRN IVP severe Pain (Pain Scale 7-10) 09/09/18 17:30 09/16/18 17:29 09/13/18 09:54 Nitroglycerin (Ntg) 0.4 mg Q5M PRN SL Prn Chest Pain 09/09/18 17:30 10/09/18 17:29 Ondansetron HCl (Zofran) 4 mg Q6H PRN IVP Nausea & Vomiting 09/09/18 17:30 10/09/18 17:29 Polyethylene Glycol (Miralax) 17 gm DAILYPRN PRN ORAL Constipation 09/09/18 17:30 10/09/18 17:29 09/12/18 21:38 Regadenoson (Lexiscan) 0.4 mg ONCE IV 09/13/18 06:00 09/13/18 12:00 Sertraline HCl (Zoloft) 50 mg DAILY ORAL 09/10/18 09:00 10/10/18 08:59 09/13/18 08:18 Tamsulosin HCl (Flomax) 0.4 mg BID ORAL 09/09/18 18:00 10/09/18 17:59 09/13/18 08:18 Temazepam (Restoril) 15 mg HSPRN PRN ORAL Insomnia 09/09/18 17:30 09/16/18 17:29 Trazodone HCl (Desyrel) 50 mg BEDTIME ORAL 09/09/18 21:00 10/09/18 20:59 09/12/18 21:34 Lxey Christiansen MD Sep 13, 2018 11:07
[2018-09-13 12:00] VITALS: BP 128/63
--- NOTE | 2018-09-13 14:19 | Cardiology Progress Note ---
Assessment/Plan Status: stable Assessment/Plan Assessment: (1) History of CVA (cerebrovascular accident) (2) Psychosis (3) Hemiparesis (4) CAD (coronary artery disease) (5) Chest pain Plan: Serial EKG/Troponin Echocardiogram -> preserved LVEF Nitro prn chest pain Stress test prior to d/c plavix (ASA allergy) Statin Subjective Cardiovascular: Reports: no symptoms Respiratory: Reports: no symptoms Gastrointestinal/Abdominal: Reports: no symptoms Genitourinary: Reports: no symptoms Subjective No CP, no acute events, vitals stable, EKG normal sinus rhythm For stress test today Objective Last 24 Hour Vital Signs Date Time Temp Pulse Resp B/P (MAP) Pulse Ox O2 Delivery O2 Flow Rate FiO2 09/13/18 09:48 81 18 Room Air 21 09/13/18 09:00 Room Air 09/13/18 08:00 70 09/13/18 08:00 97.2 70 20 140/77 (98) 95 09/13/18 07:43 61 121/59 09/13/18 04:00 97.2 61 20 121/59 (79) 96 09/13/18 04:00 61 09/13/18 00:00 97.0 88 20 125/56 (79) 98 09/13/18 00:00 74 09/12/18 21:35 72 134/62 09/12/18 21:00 Room Air 09/12/18 20:15 76 18 Room Air 21 09/12/18 20:00 76 09/12/18 20:00 97.9 79 20 130/60 (83) 98 09/12/18 16:39 97.0 09/12/18 16:00 97.0 79 20 131/70 (90) 96 09/12/18 16:00 71 General Appearance: no apparent distress, alert EENT: PERRL/EOMI, normal ENT inspection Neck: non-tender, normal alignment, supple Rhythm: NSR Cardiovascular: normal peripheral pulses, normal rate, regular rhythm Respiratory/Chest: chest wall non-tender, lungs clear, normal breath sounds Abdomen: normal bowel sounds, non tender, soft Extremities: normal range of motion, non-tender 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
--- NOTE | 2018-09-13 15:20 | General Progress Note ---
Assessment/Plan Problem List: (1) Elevated INR ICD Codes: R79.1 - Abnormal coagulation profile SNOMED: 672899942 (2) Psychosis ICD Codes: F29 - Unspecified psychosis not due to a substance or known physiological condition SNOMED: 82670482 Qualifiers: (3) History of CVA (cerebrovascular accident) ICD Codes: Z86.73 - Personal history of transient ischemic attack (TIA), and cerebral infarction without residual deficits SNOMED: 617920471 (4) CAD (coronary artery disease) ICD Codes: I25.10 - Atherosclerotic heart disease of [place] coronary artery without angina pectoris SNOMED: 74022829 (5) Hemiparesis ICD Codes: G81.90 - Hemiplegia, unspecified affecting unspecified side SNOMED: 86708963 Qualifiers: Qualified Codes: I69.359 - Hemiplegia and hemiparesis following cerebral infarction affecting unspecified side (6) ACS (acute coronary syndrome) ICD Codes: I24.9 - Acute ischemic heart disease, unspecified SNOMED: 014979148 Status: stable, progressing Assessment/Plan abilify 5mg qam trazadone 50mg qhs provided ro/st Subjective Date patient seen: Sep 13, 2018 Neurologic/Psychiatric: Reports: anxiety, depressed, emotional problems Allergies: Coded Allergies: ACETAMINOPHEN (Verified Allergy, Unknown, 08/28/18) ASPIRIN (Verified Allergy, Unknown, 08/28/18) KETOROLAC (Verified Allergy, Unknown, 08/28/18) NSAIDS (NON-STEROIDAL ANTI-INFLAMMA (Verified Allergy, Unknown, 09/09/18) Subjective stress test today nad calm depressed Objective Last 24 Hour Vital Signs Date Time Temp Pulse Resp B/P (MAP) Pulse Ox O2 Delivery O2 Flow Rate FiO2 09/13/18 12:00 97.9 66 20 128/63 (84) 98 09/13/18 12:00 74 09/13/18 09:48 81 18 Room Air 21 09/13/18 09:00 Room Air 09/13/18 08:00 70 09/13/18 08:00 97.2 70 20 140/77 (98) 95 09/13/18 07:43 61 121/59 09/13/18 04:00 97.2 61 20 121/59 (79) 96 09/13/18 04:00 61 09/13/18 00:00 97.0 88 20 125/56 (79) 98 09/13/18 00:00 74 09/12/18 21:35 72 134/62 09/12/18 21:00 Room Air 09/12/18 20:15 76 18 Room Air 21 09/12/18 20:00 76 09/12/18 20:00 97.9 79 20 130/60 (83) 98 09/12/18 16:39 97.0 09/12/18 16:00 97.0 79 20 131/70 (90) 96 09/12/18 16:00 71 Intake and Output 09/12/18 09/13/18 19:00 07:00 Intake Total 800 ml 180 ml Output Total 550 ml 780 ml Balance 250 ml -600 ml Intake Oral 800 ml 180 ml Output Urine Total 550 ml 780 ml Height (Feet): 6 Height (Inches): 4.00 Weight (Pounds): 280 General Appearance: no apparent distress, alert Neurologic: oriented x 3, responsive, depressed affect Yolanda Ford MD Sep 13, 2018 15:20
--- NOTE | 2018-09-13 15:21 | General Progress Note ---
Assessment/Plan Problem List: (1) Elevated INR ICD Codes: R79.1 - Abnormal coagulation profile SNOMED: 358438673 (2) Psychosis ICD Codes: F29 - Unspecified psychosis not due to a substance or known physiological condition SNOMED: 85018329 Qualifiers: (3) History of CVA (cerebrovascular accident) ICD Codes: Z86.73 - Personal history of transient ischemic attack (TIA), and cerebral infarction without residual deficits SNOMED: 387558512 (4) CAD (coronary artery disease) ICD Codes: I25.10 - Atherosclerotic heart disease of [place] coronary artery without angina pectoris SNOMED: 27567782 (5) Hemiparesis ICD Codes: G81.90 - Hemiplegia, unspecified affecting unspecified side SNOMED: 30795577 Qualifiers: Qualified Codes: I69.359 - Hemiplegia and hemiparesis following cerebral infarction affecting unspecified side (6) ACS (acute coronary syndrome) ICD Codes: I24.9 - Acute ischemic heart disease, unspecified SNOMED: 585262018 Assessment/Plan abilify 5mg qam trazadone 50mg qhs provided ro/st Subjective Date patient seen: Sep 12, 2018 Neurologic/Psychiatric: Reports: anxiety, depressed, emotional problems Allergies: Coded Allergies: ACETAMINOPHEN (Verified Allergy, Unknown, 08/28/18) ASPIRIN (Verified Allergy, Unknown, 08/28/18) KETOROLAC (Verified Allergy, Unknown, 08/28/18) NSAIDS (NON-STEROIDAL ANTI-INFLAMMA (Verified Allergy, Unknown, 09/09/18) Subjective calm depressed Objective Last 24 Hour Vital Signs Date Time Temp Pulse Resp B/P (MAP) Pulse Ox O2 Delivery O2 Flow Rate FiO2 09/13/18 12:00 97.9 66 20 128/63 (84) 98 09/13/18 12:00 74 09/13/18 09:48 81 18 Room Air 21 09/13/18 09:00 Room Air 09/13/18 08:00 70 09/13/18 08:00 97.2 70 20 140/77 (98) 95 09/13/18 07:43 61 121/59 09/13/18 04:00 97.2 61 20 121/59 (79) 96 09/13/18 04:00 61 09/13/18 00:00 97.0 88 20 125/56 (79) 98 09/13/18 00:00 74 09/12/18 21:35 72 134/62 09/12/18 21:00 Room Air 09/12/18 20:15 76 18 Room Air 21 09/12/18 20:00 76 09/12/18 20:00 97.9 79 20 130/60 (83) 98 09/12/18 16:39 97.0 09/12/18 16:00 97.0 79 20 131/70 (90) 96 09/12/18 16:00 71 Intake and Output 09/12/18 09/13/18 19:00 07:00 Intake Total 800 ml 180 ml Output Total 550 ml 780 ml Balance 250 ml -600 ml Intake Oral 800 ml 180 ml Output Urine Total 550 ml 780 ml Height (Feet): 6 Height (Inches): 4.00 Weight (Pounds): 280 General Appearance: no apparent distress, alert Yolanda Ford MD Sep 13, 2018 15:21
[2018-09-13 16:00] VITALS: BP 139/71
--- NOTE | 2018-09-13 16:10 | Diagnostic Imaging Report ---
Indication: chest pain Technique: The study was conducted under the supervision of a adhesive bonding machine operator. lexiscan (regadenoson) infusion over 10 seconds followed by intravenous administration of 32.8 mCi of technetium 99m Myoview was performed. Three plane SPECT imaging of the heart was then performed. A resting study was performed as part of the one-day protocol with 10.9 mCi of technetium 99m myoview injected intravenously at that time. Three plane SPECT imaging of the heart was obtained. Comparison: None Clinical data: 1. Clinical response: Non ischemic 2. Electrocardiographic response: Non ischemic Findings: The myocardial perfusion scan demonstrates heterogeneous perfusion of the left ventricular myocardium. There is hypoperfusion to the inferior wall which may be due to diaphragmatic attenuation versus a myocardial infarct. There are no reversible defects definitely seen. LVEF estimated at 73%. IMPRESSION: No definite evidence of myocardial ischemia. Heterogeneous myocardial perfusion with diminished perfusion to the inferior wall. Consider diaphragmatic attenuation versus myocardial infarct. Correlate clinically.
--- NOTE | 2018-09-14 09:14 | Discharge Summary ---
Discharge Summary Discharge Summary _ DATE OF ADMISSION: 09/09/2018 DATE OF DISCHARGE: 09/13/2018 REASON FOR ADMISSION: 51 years old male with past medical history of CVA, hypertension, coronary artery disease with history of myocardial infarction, hyperlipidemia, history of hepatitis, depression, shelter resident, DNR/DNI status, presented to emergency room with chief complaint of left-sided chest pain for 2 days. Pain was described as intermittent, radiating to scapula, 9 out of 10 on a scale 1-10. He denied fevers, chills ,cough ,hemoptysis, dyspnea. No headache, no extremity pain. Upon evaluation vital signs were stable. No leukocytosis ,stable hemoglobin and hematocrit. Troponin negative. Pro BNP 35. EKG revealed normal sinus rhythm with left axis deviation and nonspecific ST-T wave changes. Stable renal parameters and electrolytes. Elevated LFT : AST 87, ALT 114. INR 3.8. Chest x-ray revealed no acute disease. Patient admitted with diagnoses of chest pain, possible acute coronary syndrome , history of CVA with hemiparesis, coagulopathy, psychosis, coronary artery disease. CONSULTANTS: ager tender Dr. Park psychiatrist [facility]SE: Patient admitted to telemetry floor. Serial troponin were negative. EKG revealed no acute ischemic changes. Patient was ruled out for acute myocardial infarction. Auto [employer]iker closely followed. Echocardiogram proved to be technically difficult , however preserved ejection fraction to the extent visualized noted. Patient was on Plavix and statin (allergic to aspirin). Antianginal therapy with Nitroglycerin on as needed basis provided. Auto Hiker followed and recommended stress test prior to discharge, given multiple risk factors. Stress test revealed no definite evidence of myocardial ischemia. Lipid panel was unremarkable. GI prophylaxis provided. Pain management was addressed, pain was controlled. Blood pressure was closely monitored and managed with current regimen , remained stable. LFT remained the same. Patient with history of hepatitis. Hepatitis panel ordered and pending. Coagulopathy resolved., next day INR-1.0. Psychiatrist closely followed. Psychiatric medication regimen optimized. Patient DNR/DNI status. Patient was stable for transfer [facility] to [facility] for continuation of care: continue antiplatelets therapy, antihypertensive, statin. FINAL DIAGNOSES: Chest pain in patient with multiple risk factors Possible acute coronary syndrome Coronary artery disease with history of NM Cerebrovascular disease with history of CVA and left hemiparesis History of hyperlipidemia Hypertension BPH Transaminitis Psychosis Coagulopathy-resolved DISCHARGE MEDICATIONS: See Medication Reconciliation list. DISCHARGE INSTRUCTIONS: [facility] to the [facility] facility. Follow up with medical doctor at the facility. Sharlene Chicas NP Sep 14, 2018 09:14
--- NOTE | 2018-09-14 13:48 | Cardiology Report ---
APPROVED REPORT EXAM: Two-dimensional and M-mode echocardiogram with Doppler and color Doppler. INDICATION Left Ventricular Function Technically difficult and limited study due to poor acoustic windows and patient body habitus. Study quality precludes accurate assessment of regional wall motion. M-mode measurements of left ventricle not obtainable due to cardiac position (angle). Normal left ventricular chamber size, systolic function and wall motion to extent visualized. Left ventricular ejection fraction estimated to be grossly normal. Mild left ventricular hypertrophy. Anterior Echo-free space, may be due to pericardial fat or effusion. All other cardiac chamber sizes appear to be within normal limits. Aortic valve is poorly visualised Mildly thickened mitral valve leaflets with normal excursion. Mild mitral annulus and aortic root calcification. Pulmonic valve not visualized. Normal tricuspid valve structure. IVC measures at 1.8 cm with physiological collapse. A color flow and spectral Doppler study was performed and revealed: Trace aortic insufficiency. No mitral regurgitation. tricuspid regurgitation. Tricuspid systolic velocities suggests peak right ventricular systolic pressure of 21 mmHg.
--- NOTE | 2018-09-14 18:37 | Cardiology Report ---
APPROVED REPORT EKG Measurement Heart [id number] GA 182P28 [id number] Normal sinus rhythm Left axis deviation Cannot rule out Anterior infarct, age undetermined Abnormal ECG
== END 2018-09-13 18:56 | DRG 311 ==
LOC: EDBD 13:07 → EMR 13:41 → 2E 14:08 → EDBEDREQ 14:38 → 2E 09-11 20:32
DX: I24.9 Acute ischemic heart disease, unspecified (principal); I69.354 Hemiplegia and hemiparesis following cerebral infarction affecting left non-dominant side; F29 Unspecified psychosis not due to a substance or known physiological condition; Z88.6 Allergy status to analgesic agent; I25.10 Atherosclerotic heart disease of native coronary artery without angina pectoris; I25.2 Old myocardial infarction; E78.5 Hyperlipidemia, unspecified; Z66 Do not resuscitate; I10 Essential (primary) hypertension; N40.0 Benign prostatic hyperplasia without lower urinary tract symptoms; R74.0 Nonspecific elevation of levels of transaminase and lactic acid dehydrogenase [LDH]; R79.1 Abnormal coagulation profile
CPT/HCPCS: 36415; 71045; 78452; 80053; 80061; 81003; 82550; 83880; 84443; 84484; 85025; 85610; 85730; 86140; 86705; 86709; 86803; 87081; 87340; 93005; 93017; 93306; 94664; 96374; 96375; 96376; 99285; J2405; J2785

== ENCOUNTER 2018-09-19 12:10 | Emergency (ER) | payer MEDICARE, MEDICAID ==
[~2018-09-19] VITALS: Ht 190.5 cm; Wt 127.0 kg
[~2018-09-19 12:10] MED LIST changes: +ABILIFY10 MG ORAL; +ATORVASTATIN CA20 MG ORAL; +BISACODYL10 M1 RC; +CARISOPRODOL350 MG ORAL; +COLACE100 MG ORAL; +CRANBERRY450 M4 PO; +FAMOTIDINE20 MG ORAL; +FOLIC ACID1 MG ORAL; +GABAPENTIN600 MG ORAL; +LACTULOSE20 GM/301 ORAL; +MELATONIN3 MG ORAL; +METOPROLOL TART25 MG ORAL; +MILK OF MA2400 MG/10 ORAL; +MULTIVITAMINS1 EAC8 ORAL; +PLAVIX75 MG ORAL; +PRO-STAT LIQUID30 ML ORAL; +PROSCAR5 MG ORAL; +SERTRALINE HCL50 MG ORAL; +TAMSULOSIN HCL0.4 MG ORAL; +TRAMADOL HCL100 M2 ORAL; +TRAZODONE HCL50 MG ORAL; +VITAMIN D400 INTLU ORAL; +[UNRECOGNIZED DRUG - CODE] PO
[2018-09-19] MEDS ORDERED: traMADol 50mg tab ORAL ONE ×2 (12:30→14:45)
[2018-09-19 12:52] VITALS: BP 113/67
[2018-09-19 12:52] LABS: BASOPHILS % (AUTO) 0.9 % (0.0-2.0); EOSINOPHILS % (AUTO) 2.2 % (0.0-3.0); HEMATOCRIT 44.5 % (42.0-52.0); HEMOGLOBIN 14.5 G/DL (14.2-18.0); LYMPHOCYTES % (AUTO) 21.6 % (20.0-45.0); MEAN CORPUSCULAR VOLUME 85 FL (80-99); MONOCYTES % (AUTO) 8.1 % (1.0-10.0); NEUTROPHILS % (AUTO) 67.2 % (45.0-75.0); PLATELET COUNT 107 K/UL (150-450); RED BLOOD COUNT 5.23 M/UL (4.70-6.10); RED CELL DISTRIBUTION WIDTH 13.6 % (11.6-14.8); WHITE BLOOD COUNT 6.6 K/UL (4.8-10.8)
[2018-09-19 13:04] LABS: ANION GAP 4 mmol/L (5-15); BLOOD UREA NITROGEN 15 mg/dL (7-18); CALCIUM 8.6 MG/DL (8.5-10.1); CARBON DIOXIDE 26 MMOL/L (21-32); CHLORIDE 108 MMOL/L (98-107); CREATININE 0.8 MG/DL (0.55-1.30); POTASSIUM 4.9 MMOL/L (3.5-5.1); SODIUM 138 MMOL/L (136-145)
[2018-09-19 13:15] LABS: ALANINE AMINOTRANSFERASE 130 U/L (12-78); ALBUMIN 2.8 G/DL (3.4-5.0); ALBUMIN/GLOBULIN RATIO 0.5 (1.0-2.7); ALKALINE PHOSPHATASE 93 U/L (46-116); ASPARTATE AMINO TRANSFERASE 113 U/L (15-37); BILIRUBIN,TOTAL 0.5 MG/DL (0.2-1.0); CREATINE KINASE 123 U/L (26-308)
[2018-09-19 13:27] LABS: APPEARANCE,URINE CLEAR; BILIRUBIN, URINE NEGATIVE (NEGATIVE); GLUCOSE, URINE (UA) NEGATIVE (NEGATIVE); KETONES,URINE NEGATIVE (NEGATIVE); LEUKOCYTE ESTERASE ,URINE 1+ (NEGATIVE); NITRITE,URINE NEGATIVE (NEGATIVE); PH,URINE 7 (4.5-8.0); PROTEIN,URINE NEGATIVE (NEGATIVE); UROBILINOGEN,URINE NORMAL MG/DL (0.0-1.0)
[2018-09-19 13:43] LABS: COLOR,URINE YELLOW
--- NOTE | 2018-09-19 14:45 | Emergency Room Report ---
History of Present Illness General Chief Complaint: Chest Pain Source: Patient, EMS Present Illness HPI Patient presents with chest pain. He feels like somebody sitting on his chest. He's had multiple evaluations in the past with recent exercise treadmill that was "okay". Denies any fevers or chills. There's no nausea vomiting or diarrhea. He uses a wheel chair and the pain is not exertional. No cough, dyspnea, rashes. H/O CVA - L hemiparesis H/O HTN and ID Patient on Abilify Apparently allergic to tylenol. However, review of SNF records show Tylenol ordered. Discharged 09/13 with these discharge dx: Chest pain in patient with multiple risk factors Possible acute coronary syndrome Coronary artery disease with history of ID Cerebrovascular disease with history of CVA and left hemiparesis History of hyperlipidemia Hypertension BPH Transaminitis Psychosis Coagulopathy-resolved Allergies: Coded Allergies: ACETAMINOPHEN (Verified Allergy, Unknown, 08/28/18) ASPIRIN (Verified Allergy, Unknown, 08/28/18) KETOROLAC (Verified Allergy, Unknown, 08/28/18) NSAIDS (NON-STEROIDAL ANTI-INFLAMMA (Verified Allergy, Unknown, 09/09/18) Patient History Past Medical History: see triage record, old chart reviewed Social History: Denies: smoking Social History Narrative SNF - DNR/DNI Reviewed Nursing Documentation: PMH: Agreed; PSxH: Agreed Nursing Documentation-PMH Past Medical History: No History, Except For Hx Cardiac Problems: No - High cholesterol, hepatitis Hx Hypertension: Yes Hx Cancer: No Hx Gastrointestinal Problems: No - GERD Hx Dialysis: No - History of kidney stones, UTI, BPH Hx Neurological Problems: Yes Hx Cerebrovascular Accident: Yes - Left sided hemiparesis Hx Weakness: Yes Hx Neurologic Surgery: No Review of Systems All Other Systems: negative except mentioned in HPI Physical Exam Vital Signs Date Time Temp Pulse Resp B/P (MAP) Pulse Ox O2 Delivery O2 Flow Rate FiO2 09/19/18 12:02 97.9 70 16 105/51 98 Room Air Sp02 EP Interpretation: reviewed, normal General Appearance: well appearing, no apparent distress, GCS 15 Head: normocephalic, atraumatic Eyes: bilateral eye normal inspection, bilateral eye PERRL ENT: moist mucus membranes Neck: supple Respiratory: lungs clear, normal breath sounds Cardiovascular #1: regular rate, rhythm Cardiovascular #2: 2+ radial (R) Gastrointestinal: normal inspection, normal bowel sounds, non tender, no mass, non-distended Musculoskeletal: back normal, gait/station normal, normal range of motion Neurologic: alert, oriented x3, motor weakness - L hemiparesis Psychiatric: mood/affect normal Skin: normal inspection, warm/dry Medical Decision Making Diagnostic Impression: Primary Impression: Chest pain Qualified Codes: R07.9 - Chest pain, unspecified Additional Impression: History of CVA (cerebrovascular accident) ER Course Patient presents with chest pain. Differential includes acute myocardial infarction, acute coronary syndrome, chest wall pain, costochondritis, pleurisy , GERD amongst others. The fact he had a recent treadmill this is encouraging. He will still be evaluated with EKG, chest x-ray and labs. The patient will be treated with tramadol. EKG normal sinus rhythm with left axis deviation and nonspecific ST-T wave changes premature atrial can complexes. Rate of 75 normal intervals. Chest x- ray no infiltrates. Labs with negative troponin. Early on after giving patient tramadol he said that this is not going to work. He's requesting morphine or Dilaudid. Discussed with the patient's private physician. He feels the patient is stable to be observed as an outpatient. I he recommends not getting any morphine or Dilaudid at this time. Tramadol is repeated. Patient stable for outpatient observation and treatment. Laboratory Tests Test 09/19/18 12:38 09/19/18 13:12 White Blood Count 6.6 K/UL (4.8-10.8) Red Blood Count 5.23 M/UL (4.70-6.10) Hemoglobin 14.5 G/DL (14.2-18.0) Hematocrit 44.5 % (42.0-52.0) Mean Corpuscular Volume 85 FL (80-99) Mean Corpuscular Hemoglobin 27.7 PG (27.0-31.0) Mean Corpuscular Hemoglobin Concent 32.5 G/DL (32.0-36.0) Red Cell Distribution Width 13.6 % (11.6-14.8) Platelet Count 107 K/UL (150-450) L Mean Platelet Volume 10.0 FL (6.5-10.1) Neutrophils (%) (Auto) 67.2 % (45.0-75.0) Lymphocytes (%) (Auto) 21.6 % (20.0-45.0) Monocytes (%) (Auto) 8.1 % (1.0-10.0) Eosinophils (%) (Auto) 2.2 % (0.0-3.0) Basophils (%) (Auto) 0.9 % (0.0-2.0) Sodium Level 138 MMOL/L (136-145) Potassium Level 4.9 MMOL/L (3.5-5.1) Chloride Level 108 MMOL/L (98-107) H Carbon Dioxide Level 26 MMOL/L (21-32) Anion Gap 4 mmol/L (5-15) L Blood Urea Nitrogen 15 mg/dL (7-18) Creatinine 0.8 MG/DL (0.55-1.30) Estimate Glomerular Filtration Rate > 60 mL/min (>60) Glucose Level 104 MG/DL (74-106) Calcium Level 8.6 MG/DL (8.5-10.1) Total Bilirubin 0.5 MG/DL (0.2-1.0) Aspartate Amino Transferase (AST) 113 U/L (15-37) H Alanine Aminotransferase (ALT) 130 U/L (12-78) H Alkaline Phosphatase 93 U/L (46-116) Total Creatine Kinase 123 U/L (26-308) Troponin I 0.003 ng/mL (0.000-0.056) Pro-B-Type Natriuretic Peptide 44 pg/mL (0-125) Total Protein 8.4 G/DL (6.4-8.2) H Albumin 2.8 G/DL (3.4-5.0) L Globulin 5.6 g/dL Albumin/Globulin Ratio 0.5 (1.0-2.7) L Urine Color Yellow Urine Appearance Clear Urine pH 7 (4.5-8.0) Urine Specific [place] 1.015 (1.005-1.035) Urine Protein Negative (NEGATIVE) Urine Glucose (UA) Negative (NEGATIVE) Urine Ketones Negative (NEGATIVE) Urine Blood Negative (NEGATIVE) Urine Nitrite Negative (NEGATIVE) Urine Bilirubin Negative (NEGATIVE) Urine Urobilinogen Normal MG/DL (0.0-1.0) Urine Leukocyte Esterase 1+ (NEGATIVE) H Urine RBC 0-2 /HPF (0 - 0) H Urine WBC 2-4 /HPF (0 - 0) Urine Squamous Epithelial Cells Occasional /LPF Urine Amorphous Sediment Few /LPF (NONE) H Urine Bacteria Occasional /HPF (NONE) Urine Opiates Screen Negative (NEGATIVE) Urine Barbiturates Screen Negative (NEGATIVE) Phencyclidine (PCP) Screen Negative (NEGATIVE) Urine Amphetamines Screen Negative (NEGATIVE) Urine Benzodiazepines Screen Negative (NEGATIVE) Urine Cocaine Screen Negative (NEGATIVE) Urine Marijuana (THC) Screen Negative (NEGATIVE) EKG Diagnostic Results Rate: normal Rhythm: NSR ST Segments: no acute changes Rhythm Strip Diag. Results EP Interpretation: yes Rhythm: NSR, no PVC's, no ectopy Chest X-Ray Diagnostic Results Chest X-Ray Diagnostic Results : Chest X-Ray Ordered: Yes # of Views/Limited/Complete: 1 View EP Interpretation: Yes Interpretation: no consolidation, no effusion, no pneumothorax Impression: No acute disease Electronically Signed by: Electronically signed by Will Barr MD Last Vital Signs Date Time Temp Pulse Resp B/P (MAP) Pulse Ox O2 Delivery O2 Flow Rate FiO2 09/19/18 16:08 97.9 70 19 113/67 98 Room Air Status: improved Disposition: XFER SNF Condition: Improved Will Barr MD Sep 19, 2018 14:45
[2018-09-19 16:08] VITALS: BP 113/67
--- NOTE | 2018-09-20 11:46 | Diagnostic Imaging Report ---
Indication: Chest pain Comparison: 09/09/2018 A single view chest radiograph was obtained. Findings: Cardiomediastinal appearance is within normal limits for age. The lungs are clear. Pulmonary vascularity is appropriate. The diaphragmatic contour is smooth and costophrenic angles are sharp. No pleural effusions are identified. The bones are unremarkable. Impression: No acute findings
--- NOTE | 2018-09-21 08:25 | Cardiology Report ---
APPROVED REPORT EKG Measurement Heart [id number] CT 180P48 [id number] Sinus rhythm with premature atrial complexes Left axis deviation Anterior infarct, age undetermined Abnormal ECG
== END 2018-09-19 17:30 ==
LOC: EDBD 12:10 → EMR 17:26
DX: R07.9 Chest pain, unspecified (principal); I10 Essential (primary) hypertension; I69.854 Hemiplegia and hemiparesis following other cerebrovascular disease affecting left non-dominant side; I25.2 Old myocardial infarction; Z88.6 Allergy status to analgesic agent; Z88.8 Allergy status to other drugs, medicaments and biological substances
CPT/HCPCS: 36415; 71045; 80053; 80307; 81003; 82550; 83880; 84484; 85025; 93005; 99284

== ENCOUNTER 2018-10-23 11:20 | Inpatient (IN) | payer MEDICARE, MEDICAID ==
[~2018-10-23] VITALS: Ht 193 cm; Wt 132.6 kg
[2018-10-23 11:20] VITALS: BP 109/55
[2018-10-23] MEDS ORDERED: METOPROLOL-HCT1 EAC3 ORAL (12:05)
[2018-10-23] MEDS ORDERED: PLAVIX75 MG ORAL (12:05)
[2018-10-23] MEDS ORDERED: Pantoprazole Inj IV ONE (12:15)
--- NOTE | 2018-10-23 12:40 | Emergency Room Report ---
History of Present Illness General Chief Complaint: Nausea, Vomiting, and Diarrhea Source: Patient Present Illness HPI Patient is a 52-year-old male brought in by EMS from group home. The patient reportedly had been having increased the emesis and the bloody stools. This reports having lower abdominal pain as well as decreased urine output. He reports having prior history of renal stent. He states this pain feels like prior episodes of kidney stones. The pain is described as sharp in nature localized to the right lower abdomen. He denies any fever. He reports having diarrhea as well as black stool.The patient reportedly has been weak on the left side chronically since a CVA Allergies: Coded Allergies: ACETAMINOPHEN (Verified Allergy, Unknown, 08/28/18) ASPIRIN (Verified Allergy, Unknown, 08/28/18) KETOROLAC (Verified Allergy, Unknown, 08/28/18) NSAIDS (NON-STEROIDAL ANTI-INFLAMMA (Verified Allergy, Unknown, 09/09/18) Patient History Past Medical History: see triage record Reviewed Nursing Documentation: PMH: Agreed; PSxH: Agreed Nursing Documentation-PMH Past Medical History: No History, Except For Hx Cardiac Problems: Yes - STROKE 2012, RHEUMATIC FEVER 1990 Hx Hypertension: Yes Hx Cancer: No Hx Gastrointestinal Problems: No - GERD Hx Dialysis: No - History of kidney stones, UTI, BPH Hx Neurological Problems: Yes Hx Cerebrovascular Accident: Yes - Left sided hemiparesis Hx Weakness: Yes Hx Neurologic Surgery: No Review of Systems All Other Systems: negative except mentioned in HPI Physical Exam Vital Signs Date Time Temp Pulse Resp B/P (MAP) Pulse Ox O2 Delivery O2 Flow Rate FiO2 10/23/18 11:16 98.2 80 18 152/78 95 Room Air Sp02 EP Interpretation: reviewed, normal General Appearance: normal inspection, well appearing, no apparent distress, alert, GCS 15 Head: atraumatic ENT: normal ENT inspection, hearing grossly normal, normal voice Neck: normal inspection, full range of motion, supple, no bony tend Respiratory: normal inspection, lungs clear, normal breath sounds, no respiratory distress, no retraction, no wheezing Cardiovascular #1: regular rate, rhythm, no edema Gastrointestinal: normal inspection, normal bowel sounds, non tender, soft, no guarding, no hernia Genitourinary: no CVA tenderness Musculoskeletal: normal inspection, back normal, normal range of motion Neurologic: normal inspection, alert, responsive, speech normal Psychiatric: normal inspection, judgement/insight normal, mood/affect normal Skin: normal inspection, normal color, no rash Medical Decision Making Diagnostic Impression: Primary Impression: Abdominal pain Additional Impressions: History of CVA (cerebrovascular accident) Gallstone Bloody stool ER Course Patient presented for abdominal pain. Differential diagnoses included ischemic bowel, appendicitis, perforated viscus, abdominal aortic aneurysm, inferior myocardial infarction, viral gastroenteritis Because of complexity of patient's case laboratory testing and imaging studies were ordered. The patient was noted to have a significant right lower quadrant abdominal pain. CT the abdomen pelvis was ordered due to patient's location pain and prior history of kidney stone. CT of abdomen and pelvis read by radiology showed evident gallstones.Dr. Hernandez was contacted for surgical consult.Dr. Roberto Georges was contacted for inpatient management. Labs Test 10/23/18 12:24 10/23/18 12:44 White Blood Count 7.5 K/UL (4.8-10.8) Red Blood Count 5.76 M/UL (4.70-6.10) Hemoglobin 15.5 G/DL (14.2-18.0) Hematocrit 48.2 % (42.0-52.0) Mean Corpuscular Volume 84 FL (80-99) Mean Corpuscular Hemoglobin 26.9 PG (27.0-31.0) Mean Corpuscular Hemoglobin Concent 32.2 G/DL (32.0-36.0) Red Cell Distribution Width 13.9 % (11.6-14.8) Platelet Count 150 K/UL (150-450) Mean Platelet Volume 10.6 FL (6.5-10.1) Neutrophils (%) (Auto) 71.1 % (45.0-75.0) Lymphocytes (%) (Auto) 17.7 % (20.0-45.0) Monocytes (%) (Auto) 8.1 % (1.0-10.0) Eosinophils (%) (Auto) 2.0 % (0.0-3.0) Basophils (%) (Auto) 1.2 % (0.0-2.0) Prothrombin Time 11.7 SEC (9.30-11.50) Prothromb Time International Ratio 1.1 (0.9-1.1) Activated Partial Thromboplast Time 26 SEC (23-33) Sodium Level 136 MMOL/L (136-145) Potassium Level 5.2 MMOL/L (3.5-5.1) Chloride Level 106 MMOL/L (98-107) Carbon Dioxide Level 23 MMOL/L (21-32) Anion Gap 7 mmol/L (5-15) Blood Urea Nitrogen 16 mg/dL (7-18) Creatinine 0.8 MG/DL (0.55-1.30) Estimat Glomerular Filtration Rate > 60 mL/min (>60) Glucose Level 113 MG/DL (74-106) Calcium Level 8.9 MG/DL (8.5-10.1) Total Bilirubin 0.6 MG/DL (0.2-1.0) Aspartate Amino Transf (AST/SGOT) 129 U/L (15-37) Alanine Aminotransferase (ALT/SGPT) 99 U/L (12-78) Alkaline Phosphatase 85 U/L (46-116) Total Protein 9.4 G/DL (6.4-8.2) Albumin 2.9 G/DL (3.4-5.0) Globulin 6.5 g/dL Albumin/Globulin Ratio 0.4 (1.0-2.7) Lipase 182 U/L (73-393) Urine Color Yellow Urine Appearance Clear Urine pH 7 (4.5-8.0) Urine Specific [place] 1.015 (1.005-1.035) Urine Protein 1+ (NEGATIVE) Urine Glucose (UA) Negative (NEGATIVE) Urine Ketones 1+ (NEGATIVE) Urine Blood Negative (NEGATIVE) Urine Nitrite Positive (NEGATIVE) Urine Bilirubin Negative (NEGATIVE) Urine Urobilinogen 1 MG/DL (0.0-1.0) Urine Leukocyte Esterase 2+ (NEGATIVE) Urine RBC 0-2 /HPF (0 - 0) Urine WBC 2-4 /HPF (0 - 0) Urine Squamous Epithelial Cells Occasional /LPF Urine Bacteria Occasional /HPF (NONE) Last Vital Signs Date Time Temp Pulse Resp B/P (MAP) Pulse Ox O2 Delivery O2 Flow Rate FiO2 10/23/18 11:20 98.4 80 18 109/55 94 Room Air Status: unchanged Disposition: ADMITTED INPATIENT Condition: Stable Henrik Bowser MD Oct 23, 2018 12:40
[2018-10-23 12:51] LABS: BASOPHILS % (AUTO) 1.2 % (0.0-2.0); HEMATOCRIT 48.2 % (42.0-52.0); HEMOGLOBIN 15.5 G/DL (14.2-18.0); LYMPHOCYTES % (AUTO) 17.7 % (20.0-45.0); MEAN CORPUSCULAR VOLUME 84 FL (80-99); MONOCYTES % (AUTO) 8.1 % (1.0-10.0); NEUTROPHILS % (AUTO) 71.1 % (45.0-75.0); PLATELET COUNT 150 K/UL (150-450); RED BLOOD COUNT 5.76 M/UL (4.70-6.10); RED CELL DISTRIBUTION WIDTH 13.9 % (11.6-14.8); WHITE BLOOD COUNT 7.5 K/UL (4.8-10.8)
[2018-10-23 12:53] LABS: APPEARANCE,URINE CLEAR; BILIRUBIN, URINE NEGATIVE (NEGATIVE); GLUCOSE, URINE (UA) NEGATIVE (NEGATIVE); KETONES,URINE 1+ (NEGATIVE); LEUKOCYTE ESTERASE ,URINE 2+ (NEGATIVE); NITRITE,URINE POSITIVE (NEGATIVE); PH,URINE 7 (4.5-8.0); PROTEIN,URINE 1+ (NEGATIVE); UROBILINOGEN,URINE 1 MG/DL (0.0-1.0)
[2018-10-23 12:58] LABS: INR 1.1 (0.9-1.1)
[2018-10-23] MEDS ORDERED: Morphine Sulfate 10mg/ml Inj IVP ONE (13:00)
[2018-10-23] MEDS ORDERED: Isovue-300 100ml vial INJ PRN (13:00)
[2018-10-23 13:02] LABS: COLOR,URINE YELLOW
[2018-10-23 13:04] LABS: ANION GAP 7 mmol/L (5-15); BLOOD UREA NITROGEN 16 mg/dL (7-18); CALCIUM 8.9 MG/DL (8.5-10.1); CARBON DIOXIDE 23 MMOL/L (21-32); CHLORIDE 106 MMOL/L (98-107); CREATININE 0.8 MG/DL (0.55-1.30); POTASSIUM 5.2 MMOL/L (3.5-5.1); SODIUM 136 MMOL/L (136-145)
[2018-10-23 13:09] LABS: ALANINE AMINOTRANSFERASE 99 U/L (12-78); ALBUMIN 2.9 G/DL (3.4-5.0); ALBUMIN/GLOBULIN RATIO 0.4 (1.0-2.7); ALKALINE PHOSPHATASE 85 U/L (46-116); ASPARTATE AMINO TRANSFERASE 129 U/L (15-37); BILIRUBIN,TOTAL 0.6 MG/DL (0.2-1.0)
--- NOTE | 2018-10-23 14:20 | Diagnostic Imaging Report ---
EXAM: CT Abdomen and Pelvis With Intravenous Contrast CLINICAL HISTORY: ABD PAIN TECHNIQUE: Axial computed tomography images of the abdomen and pelvis with intravenous contrast. CTDI is 19.51 + 19.75 mGy and DLP is 1229 mGy-cm. One or more of the following dose reduction techniques were used: automated exposure control, adjustment of the mA and/or kV according to patient size, use of iterative reconstruction technique. COMPARISON: No relevant prior studies available. FINDINGS: Heart: Mild cardiomegaly. ABDOMEN: Liver: Fatty and slightly nodular liver. Correlate for cirrhosis. Gallbladder and bile ducts: Cholelithiasis. Pancreas: Unremarkable. Spleen: Mild splenomegaly. Adrenals: Unremarkable. Kidneys and ureters: Unremarkable. No hydronephrosis. Stomach and bowel: Duodenal diverticulum. PELVIS: Appendix: No findings to suggest acute appendicitis. Bladder: Wilson catheter. Reproductive: Unremarkable. ABDOMEN and PELVIS: Intraperitoneal space: Unremarkable. Bones/joints: No acute fracture. Soft tissues: Fat containing inguinal hernias. Vasculature: Unremarkable. No abdominal aortic aneurysm. Lymph nodes: No enlarged lymph nodes. IMPRESSION: Cholelithiasis. Correlate for cirrhosis.
--- NOTE | 2018-10-23 14:41 | Consultation ---
History of Present Illness General Date patient seen: Oct 23, 2018 Chief Complaint: Nausea, Vomiting, and Diarrhea Reason for Consultation: RLQ abdominal pain Present Illness HPI 52-year-old male with history of Hep C, renal stones, CVA was brought in by EMS from alf. The patient reportedly had been having increased the emesis and the bloody stools. Complaining of right sided abdominal pain. States pain ongoing for 1 week and 8/10 cramping pain. Surgery called to evaluate. patient seen, chart reviewed, patient examined. on exam demonstrated RLQ pain with mild rebound and guarding. Allergies: Coded Allergies: ACETAMINOPHEN (Verified Allergy, Unknown, 08/28/18) ASPIRIN (Verified Allergy, Unknown, 08/28/18) KETOROLAC (Verified Allergy, Unknown, 08/28/18) NSAIDS (NON-STEROIDAL ANTI-INFLAMMA (Verified Allergy, Unknown, 09/09/18) Medication History Scheduled Amino Acids/Protein Hydrolys (Pro-Stat Liquid), 30 ML ORAL TWICE A DAY, ( Reported) Aripiprazole* (Abilify*), 5 MG ORAL HS, (Reported) Atorvastatin Calcium* (Atorvastatin Calcium*), 20 MG ORAL BEDTIME, (Reported) Bisacodyl (Bisacodyl), 10 MG RC PRN, (Reported) Carisoprodol* (Carisoprodol*), 350 MG ORAL Q8HR, (Reported) Clopidogrel Bisulfate* (Plavix*), 75 MG ORAL DAILY, (Reported) Clopidogrel Bisulfate* (Plavix*), 75 MG ORAL DAILY, (Reported) Cranberry Fruit Concentrate (Cranberry), 900 MG PO BID, (Reported) Docusate Sodium* (Colace*), 100 MG ORAL DAILY, (Reported) Famotidine (Famotidine), 20 MG ORAL TWICE A DAY, (Reported) Finasteride* (Proscar*), 5 MG ORAL DAILY, (Reported) Folic Acid* (Folic Acid*), 1 MG ORAL DAILY, (Reported) Gabapentin* (Gabapentin*), 600 MG ORAL THREE TIMES A DAY, (Reported) Lactulose (Lactulose*), 30 ML ORAL DAILY, (Reported) Magnesium Hydroxide* (Milk Of Magnesia*), 30 ML ORAL DAILY, (Reported) Magnesium Oxide/Mag Aa Chelate (Magnesium 300 Mg Capsule), 400 MG PO DAILY, ( Reported) Metoprolol Tartrate* (Metoprolol Tartrate*), 25 MG ORAL EVERY 12 HOURS, ( Reported) Metoprolol/Hydrochlorothiazide (Metoprolol-Hctz 50-25 Mg Tab), 1 TAB ORAL DAILY, (Reported) Multivitamin With Minerals (Multivitamins With Minerals*), 1 TAB ORAL DAILY, ( Reported) Nitrofurantoin Monohyd/M-Cryst* (Macrobid 100 Mg*), 100 MG ORAL EVERY 12 HOURS Sertraline Hcl* (Zoloft*), 50 MG ORAL DAILY, (Reported) Tamsulosin Hcl (Tamsulosin Hcl*), 0.4 MG ORAL BID, (Reported) Tramadol Hcl (Tramadol Hcl), 50 MG ORAL Q6HR, (Reported) Trazodone Hcl* (Desyrel*), 50 MG ORAL BEDTIME, (Reported) Vitamin D (Vitamin D3), 5,000 UNITS ORAL DAILY, (Reported) Scheduled PRN Melatonin (Melatonin), 3 MG ORAL BEDTIME PRN for Insomnia, (Reported) Patient History History Provided By: Patient, Medical Record, PMD Healthcare decision maker Resuscitation status Advanced Directive on File Past Medical/Surgical History Past Medical/Surgical History: (1) Abdominal pain (2) Nausea & vomiting (3) CAD (coronary artery disease) (4) Psychosis (5) Chest pain (6) History of CVA (cerebrovascular accident) Review of Systems All Other Systems: negative except mentioned in HPI Physical Exam General Appearance: no apparent distress, alert Lines, tubes and drains: peripheral HEENT: normocephalic, mucous membranes moist Neck: normal inspection Respiratory/Chest: normal breath sounds, no respiratory distress, no accessory muscle use Cardiovascular/Chest: normal rate Abdomen: soft, distended, guarding, rebound, tender, hepatomegaly Extremities: normal inspection Skin Exam: warm/dry Neurologic: alert, responsive Last 24 Hour Vital Signs Date Time Temp Pulse Resp B/P (MAP) Pulse Ox O2 Delivery O2 Flow Rate FiO2 10/23/18 11:20 98.4 80 18 109/55 94 Room Air 10/23/18 11:16 98.2 80 18 152/78 95 Room Air Laboratory Tests Test 10/23/18 12:24 10/23/18 12:44 White Blood Count 7.5 K/UL (4.8-10.8) Red Blood Count 5.76 M/UL (4.70-6.10) Hemoglobin 15.5 G/DL (14.2-18.0) Hematocrit 48.2 % (42.0-52.0) Mean Corpuscular Volume 84 FL (80-99) Mean Corpuscular Hemoglobin 26.9 PG (27.0-31.0) L Mean Corpuscular Hemoglobin Concent 32.2 G/DL (32.0-36.0) Red Cell Distribution Width 13.9 % (11.6-14.8) Platelet Count 150 K/UL (150-450) Mean Platelet Volume 10.6 FL (6.5-10.1) H Neutrophils (%) (Auto) 71.1 % (45.0-75.0) Lymphocytes (%) (Auto) 17.7 % (20.0-45.0) L Monocytes (%) (Auto) 8.1 % (1.0-10.0) Eosinophils (%) (Auto) 2.0 % (0.0-3.0) Basophils (%) (Auto) 1.2 % (0.0-2.0) Prothrombin Time 11.7 SEC (9.30-11.50) H Prothromb Time International Ratio 1.1 (0.9-1.1) Activated Partial Thromboplast Time 26 SEC (23-33) Sodium Level 136 MMOL/L (136-145) Potassium Level 5.2 MMOL/L (3.5-5.1) H Chloride Level 106 MMOL/L (98-107) Carbon Dioxide Level 23 MMOL/L (21-32) Anion Gap 7 mmol/L (5-15) Blood Urea Nitrogen 16 mg/dL (7-18) Creatinine 0.8 MG/DL (0.55-1.30) Estimat Glomerular Filtration Rate > 60 mL/min (>60) Glucose Level 113 MG/DL (74-106) H Calcium Level 8.9 MG/DL (8.5-10.1) Total Bilirubin 0.6 MG/DL (0.2-1.0) Aspartate Amino Transf (AST/SGOT) 129 U/L (15-37) H Alanine Aminotransferase (ALT/SGPT) 99 U/L (12-78) H Alkaline Phosphatase 85 U/L (46-116) Total Protein 9.4 G/DL (6.4-8.2) H Albumin 2.9 G/DL (3.4-5.0) L Globulin 6.5 g/dL Albumin/Globulin Ratio 0.4 (1.0-2.7) L Lipase 182 U/L (73-393) Urine Color Yellow Urine Appearance Clear Urine pH 7 (4.5-8.0) Urine Specific [place] 1.015 (1.005-1.035) Urine Protein 1+ (NEGATIVE) H Urine Glucose (UA) Negative (NEGATIVE) Urine Ketones 1+ (NEGATIVE) H Urine Blood Negative (NEGATIVE) Urine Nitrite Positive (NEGATIVE) H Urine Bilirubin Negative (NEGATIVE) Urine Urobilinogen 1 MG/DL (0.0-1.0) H Urine Leukocyte Esterase 2+ (NEGATIVE) H Urine RBC 0-2 /HPF (0 - 0) H Urine WBC 2-4 /HPF (0 - 0) Urine Squamous Epithelial Cells Occasional /LPF Urine Bacteria Occasional /HPF (NONE) Height (Feet): 6 Height (Inches): 3.00 Weight (Pounds): 290 Medications Current Medications Medications (Trade) Dose Ordered Sig/Hugo Route PRN Reason Start Time Stop Time Status Last Admin Dose Admin Iopamidol (Isovue-300 100ml) 100 ml NOW PRN INJ Radiology Procedure 10/23/18 13:00 Assessment/Plan Problem List: (1) Abdominal pain Assessment & Plan: RLQ abdominal pain, nausea, emesis no leukocytosis abnormal LFT's CT noted nml appendix and cholelithiasis -Ultrasound abdomen ordered to evaluate GB and liver -Hep panel -Trend labs -NPO for now -IV fluids thank you will follow with recs ICD Codes: R10.9 - Unspecified abdominal pain SNOMED: 34258721 (2) Nausea & vomiting ICD Codes: R11.2 - Nausea with vomiting, unspecified SNOMED: [id number] Rashid Hernandez Oct 23, 2018 14:41
[2018-10-23] MEDS ORDERED: LORazepam Inj 2mg/ml 1ml IV PRN ×2 (14:50→16:30)
[2018-10-23] MEDS ORDERED: Mylanta II UD 30ml ORAL PRN (14:50)
[2018-10-23] MEDS ORDERED: Morphine Sulfate 2mg/ml Inj IVP PRN (16:30)
[2018-10-23] MEDS: Morphine Sulfate 2mg/ml Inj IVP PRN (17:17)
[2018-10-23] MEDS ORDERED: D5 1/2NS 1,000 ML IV SCH (17:30)
[2018-10-23] MEDS ORDERED: ABILIFY5 MG ORAL (17:34)
[2018-10-23] MEDS ORDERED: TRAMADOL HCL50 MG ORAL (17:34)
[2018-10-23] MEDS ORDERED: FLEET ENEMA133 ML RECTAL (17:34)
[2018-10-23 19:50] VITALS: BP 113/60
[2018-10-23] MEDS: Docusate 100mg cap ORAL SCH (20:36)
[2018-10-23] MEDS: Tamsulosin 0.4mg cap ORAL SCH (20:37)
[2018-10-23] MEDS: Heparin 5000 units/ml inj SUBQ SCH (20:39)
[2018-10-23 20:40] VITALS: BP 125/67
[2018-10-23] MEDS ORDERED: Milk of Magnesia 30ml Ud ORAL PRN (21:00)
[2018-10-23] MEDS: Morphine Sulfate 4mg/ml Inj (IV/IM USE ONLY) IVP PRN (21:17)
[2018-10-23] MEDS: Metoprolol 25mg tab ORAL SCH (21:20)
[2018-10-23] MEDS: TraZODone 50mg tab ORAL SCH (21:53)
[2018-10-24 00:47] VITALS: BP 113/61
[2018-10-24] MEDS: Morphine Sulfate 4mg/ml Inj (IV/IM USE ONLY) IVP PRN ×5 (01:28→22:40)
[2018-10-24 04:58] VITALS: BP 106/63
[2018-10-24 08:12] LABS: BASOPHILS % (AUTO) 0.9 % (0.0-2.0); EOSINOPHILS % (AUTO) 3.5 % (0.0-3.0); HEMATOCRIT 44.4 % (42.0-52.0); HEMOGLOBIN 14.5 G/DL (14.2-18.0); MEAN CORPUSCULAR VOLUME 86 FL (80-99); MONOCYTES % (AUTO) 10.5 % (1.0-10.0); NEUTROPHILS % (AUTO) 57.1 % (45.0-75.0); PLATELET COUNT 109 K/UL (150-450); RED BLOOD COUNT 5.19 M/UL (4.70-6.10); RED CELL DISTRIBUTION WIDTH 14.1 % (11.6-14.8); WHITE BLOOD COUNT 6.2 K/UL (4.8-10.8)
[2018-10-24 08:21] LABS: INR 1.1 (0.9-1.1)
[2018-10-24 08:25] VITALS: BP 116/66
[2018-10-24] MEDS: Docusate 100mg cap ORAL SCH ×2 (08:27→21:21)
[2018-10-24] MEDS: Sertraline 50mg tab ORAL SCH (08:27)
[2018-10-24] MEDS: Tamsulosin 0.4mg cap ORAL SCH ×2 (08:27→17:07)
[2018-10-24] MEDS: Metoprolol 25mg tab ORAL SCH ×2 (08:28→21:20)
[2018-10-24] MEDS: Heparin 5000 units/ml inj SUBQ SCH (08:35)
[2018-10-24 08:48] LABS: ALANINE AMINOTRANSFERASE 81 U/L (12-78); ALBUMIN 2.8 G/DL (3.4-5.0); ALBUMIN/GLOBULIN RATIO 0.5 (1.0-2.7); ALKALINE PHOSPHATASE 75 U/L (46-116); ANION GAP 9 mmol/L (5-15); ASPARTATE AMINO TRANSFERASE 73 U/L (15-37); BILIRUBIN,TOTAL 0.4 MG/DL (0.2-1.0); BLOOD UREA NITROGEN 14 mg/dL (7-18); CALCIUM 8.1 MG/DL (8.5-10.1); CARBON DIOXIDE 25 MMOL/L (21-32); CHLORIDE 109 MMOL/L (98-107); CHOLESTEROL 66 MG/DL (< 200); CREATININE 0.9 MG/DL (0.55-1.30); HDL CHOLESTEROL 26 MG/DL (40-60); POTASSIUM 3.9 MMOL/L (3.5-5.1); SODIUM 143 MMOL/L (136-145); TRIGLYCERIDES 67 MG/DL (30-150)
[2018-10-24] MEDS: Morphine Sulfate 2mg/ml Inj IVP PRN (09:57)
--- NOTE | 2018-10-24 10:30 | Consultation ---
DATE OF CONSULTATION: 10/24/2018 GASTROENTEROLOGY CONSULTATION CONSULTING PHYSICIAN: Arthur Ramos M.D. REFERRING PHYSICIAN: Roberto Georges D.O. CHIEF COMPLAINT: Rectal bleeding. HISTORY OF PRESENT ILLNESS: This is a very pleasant 52-year-old male admitted to the hospital with rectal bleeding and flank pain. According to the patient, he had bright red blood in the rectum. He stated he never had a colonoscopy before. He had some abdominal pain, he got concerned, and came to the hospital. The patient lives in a skilled nursing. He is not very happy there. He actually mentioned he does not want to go back there. PAST MEDICAL HISTORY: 1. History of hypertension. 2. Depression. 3. Hepatitis C. 4. Abnormal liver function tests. 5. Gallstones. 6. History of duodenal diverticulum. 7. Constipation. ALLERGIES: Allergy to multiple medications including acetaminophen, aspirin, ketorolac, NSAIDs. SOCIAL HISTORY: Currently lives in a skilled nursing. The patient denies any recent tobacco, alcohol, or drug abuse, although he has prior history of alcohol usage and tobacco usage, he never used drugs according to him. PAST SURGICAL HISTORY: He has history of BPH and apparently had a prostate surgery. FAMILY HISTORY: Noncontributory. REVIEW OF SYSTEMS: A 10-point review of systems was performed and pertinent positives in HPI. PHYSICAL EXAMINATION: VITAL SIGNS: Most recent vital signs, temperature is 97.6, pulse 62, respirations 18, blood pressure is 106/63. HEENT: Normocephalic and atraumatic. Sclerae anicteric. NECK: Supple. No evidence of lymphadenopathy. CARDIOVASCULAR: Regular rate and rhythm. Plus S1 and S2. No obvious murmur. LUNGS: Clear to auscultation bilaterally. ABDOMEN: Positive bowel sounds. Soft, nontender. No rebound. No guarding. No peritoneal sign. EXTREMITIES: No cyanosis, no clubbing, no edema. LABORATORY DATA: INR is 1.1. White count is 7.5, hemoglobin 15, hematocrit 48, platelet count is 150,000. Chem-7, AST of 129, ALT of 99, albumin of 2.9. IMAGING STUDIES: CT of the abdomen and pelvis showed evidence of possible cirrhosis and gallstones, otherwise negative. ASSESSMENT AND PLAN: This is a 52-year-old male with GI bleeding and history of possible hepatitis C cirrhosis. Given the age of 52, rectal bleeding, and no prior history of colonoscopy, the patient needs a colonoscopy. I explained the procedure to him and he agreed. Also given history of cirrhosis with hepatitis C, the patient most probably needs endoscopy to evaluate for varices. Plan for both endoscopy and colonoscopy tomorrow. The patient was informed of the risks and benefits of procedure and he agreed to it. hepatitis C, we are going to send the hepatitis C quantitative to see if the patient has positive if that is the case, the patient needs to follow as an outpatient. I gave him my card to call my office and to come for followup. I want to thank Dr. Roberto Georges for this kind referral. Arthur Ramos M.D. DR: Alpesh JOB#: [id number] CC: Roberto Georges D.O.
[2018-10-24 12:00] VITALS: BP 112/58
--- NOTE | 2018-10-24 14:53 | Diagnostic Imaging Report ---
EXAM: US Abdomen Complete CLINICAL HISTORY: ABD PAIN TECHNIQUE: Real-time ultrasound of the abdomen (complete) with image documentation. COMPARISON: No relevant prior studies available. FINDINGS: Liver: Hepatomegaly, 18.5 cm. Echogenic liver suggesting fatty infiltration or hepatocellular disease. Gallbladder: Cholelithiasis with apparent wall thickening measuring 3 - 4 mm. Negative sonographic Cook sign. Common bile duct: No biliary ductal dilatation. Pancreas: Unremarkable as visualized Kidneys: No hydronephrosis. Spleen: Splenomegaly, 18.3 cm. Aorta: Unremarkable. No aneurysm. Inferior vena cava: Unremarkable. IMPRESSION: Cholelithiasis with apparent wall thickening measuring 3 - 4 mm. Negative sonographic Cook sign.
--- NOTE | 2018-10-24 15:04 | General Surgery Progress Note ---
General Surgery-Progress Note Subjective Additional Comments states he feels better. still with abdominal pain but improved. no n/v/f/c. Objective Last 24 Hour Vital Signs Date Time Temp Pulse Resp B/P (MAP) Pulse Ox O2 Delivery O2 Flow Rate FiO2 10/24/18 14:10 97.4 10/24/18 12:00 97.4 63 17 112/58 (76) 94 10/24/18 10:27 97.6 10/24/18 09:00 Room Air 10/24/18 08:28 66 116/66 10/24/18 08:25 97.6 66 18 116/66 (83) 94 10/24/18 06:12 97.6 10/24/18 04:58 97.6 62 18 106/63 (77) 94 10/24/18 00:47 97.9 66 18 113/61 (78) 94 10/23/18 22:23 Room Air 10/23/18 21:20 65 125/67 10/23/18 20:40 98.2 65 18 125/67 (86) 93 10/23/18 20:00 98.1 75 18 113/60 98 Room Air 10/23/18 19:50 98.1 75 18 113/60 98 Room Air I&O Intake and Output 10/23/18 10/24/18 18:59 06:59 Intake Total 1000 ml 905 ml Output Total 250 ml 800 ml Balance 750 ml 105 ml Intake Oral 30 ml IV Total 1000 ml 875 ml Output Urine Total 250 ml 800 ml # Voids 1 Drains: none Cardiovascular: RSR Respiratory: clear Abdomen: soft, flat, non-tender, present bowel sounds Extremities: no cyanosis, other Laboratory Tests Test 10/24/18 06:16 White Blood Count 6.2 K/UL (4.8-10.8) Red Blood Count 5.19 M/UL (4.70-6.10) Hemoglobin 14.5 G/DL (14.2-18.0) Hematocrit 44.4 % (42.0-52.0) Mean Corpuscular Volume 86 FL (80-99) Mean Corpuscular Hemoglobin 28.0 PG (27.0-31.0) Mean Corpuscular Hemoglobin Concent 32.7 G/DL (32.0-36.0) Red Cell Distribution Width 14.1 % (11.6-14.8) Platelet Count 109 K/UL (150-450) L Mean Platelet Volume 7.7 FL (6.5-10.1) Neutrophils (%) (Auto) 57.1 % (45.0-75.0) Lymphocytes (%) (Auto) 28.0 % (20.0-45.0) Monocytes (%) (Auto) 10.5 % (1.0-10.0) H Eosinophils (%) (Auto) 3.5 % (0.0-3.0) H Basophils (%) (Auto) 0.9 % (0.0-2.0) Prothrombin Time 11.5 SEC (9.30-11.50) Prothromb Time International Ratio 1.1 (0.9-1.1) Activated Partial Thromboplast Time 30 SEC (23-33) Sodium Level 143 MMOL/L (136-145) Potassium Level 3.9 MMOL/L (3.5-5.1) Chloride Level 109 MMOL/L (98-107) H Carbon Dioxide Level 25 MMOL/L (21-32) Anion Gap 9 mmol/L (5-15) Blood Urea Nitrogen 14 mg/dL (7-18) Creatinine 0.9 MG/DL (0.55-1.30) Estimat Glomerular Filtration Rate > 60 mL/min (>60) Glucose Level 86 MG/DL (74-106) Hemoglobin A1c 5.8 % (4.3-6.0) Calcium Level 8.1 MG/DL (8.5-10.1) L Total Bilirubin 0.4 MG/DL (0.2-1.0) Aspartate Amino Transf (AST/SGOT) 73 U/L (15-37) H Alanine Aminotransferase (ALT/SGPT) 81 U/L (12-78) H Alkaline Phosphatase 75 U/L (46-116) Pro-B-Type Natriuretic Peptide 90 pg/mL (0-125) Total Protein 8.2 G/DL (6.4-8.2) Albumin 2.8 G/DL (3.4-5.0) L Globulin 5.4 g/dL Albumin/Globulin Ratio 0.5 (1.0-2.7) L Triglycerides Level 67 MG/DL (30-150) Cholesterol Level 66 MG/DL (< 200) LDL Cholesterol 40 mg/dL (<100) HDL Cholesterol 26 MG/DL (40-60) L Cholesterol/HDL Ratio 2.5 (3.3-4.4) L Prostate Specific Antigen 0.11 ng/mL (0.13-4.0) L Thyroid Stimulating Hormone (TSH) 5.051 uiU/mL (0.358-3.740) Hepatitis C Antibody Pending Hepatitis C RNA (PCR) IUs/ml Pending Hepatitis C RNA (PCR) log IUs/ml Pending Plan Problems: (1) Abdominal pain Assessment & Plan: RLQ abdominal pain, nausea, emesis no leukocytosis abnormal LFT's CT noted nml appendix and cholelithiasis -Ultrasound abdomen ordered to evaluate GB and liver - fatty large liver with Cholelithiasis with apparent wall thickening measuring 3 - 4 mm. Negative sonographic Cook sign. -Hep panel -Trend labs -appreciate GI input - plan for scope tomorrow -IV fluids thank you will follow with recs (2) Nausea & vomiting Rashid Hernandez Oct 24, 2018 15:04
--- NOTE | 2018-10-24 15:45 | History and Physical Report ---
DATE OF ADMISSION: 10/23/2018 APPROXIMATE TIME: 8 a.m. CONSULTANTS: 1. Arthur Ramos M.D. 2. Divya Gaviria M.D. 3. Rashid Hernandez M.D. 4. Amy Benites M.D. CHIEF COMPLAINT: Abdominal pain, GI bleed, cirrhosis. BRIEF HISTORY: The patient is a 52-year-old male from [facility] presented with the above-mentioned diagnosis, admitted to medical floor. Currently, slightly depressed in bed, slight abdominal pain, no complaint. REVIEW OF SYSTEMS: No chest pain. No shortness of breath. Slight nausea. No vomiting or diarrhea. PAST MEDICAL HISTORY: Includes abdominal pain, gastrointestinal bleed, cirrhosis of liver, depression, CVA, left-sided weakness. PAST SURGICAL HISTORY: Prostate and laminectomy. MEDICATIONS: Include sertraline, carisoprodol, famotidine, docusate sodium, magnesium, aripiprazole, metoprolol, trazodone, heparin, gabapentin, tamsulosin. ALLERGIES: Tylenol, aspirin, Ketoralac, NSAIDs. SOCIAL HISTORY: No smoking. No alcohol. No intravenous drug abuse. FAMILY HISTORY: Noncontributory. PHYSICAL EXAMINATION: GENERAL: Calm in bed, oriented x2, slight distress secondary to abdominal pain. VITAL SIGNS: Temperature is 97 degrees, pulse 56, respirations 18, and blood pressure 116/66. CARDIOVASCULAR: No murmur. LUNGS: Distant and clear. ABDOMEN: Bowel sound positive. Slightly tender. No guarding. No rigidity. No rebound. EXTREMITIES: No cyanosis, clubbing, or edema. NEUROLOGIC: The patient moves all extremities, slightly weak. LABORATORY AND DIAGNOSTIC DATA: Labs at this time show platelets 109, otherwise CBC is normal. Potassium 5.2 and glucose 113. AST 129 and ALT 99. Albumin 2.9. INR is 1.1. PTT is 26. Urinalysis, 2+ leukocyte esterase. ASSESSMENT: 1. Abdominal pain. 2. GI bleed. 3. UTI. 4. Depression. 5. Cirrhosis. 6. CVA. 7. Left-sided weakness. PLAN: 1. Continue previous medications. 2. Transfuse as needed. 3. CBC and BMP in the morning. 4. Pain control. 5. GI and surgery evaluation. 6. CBC and BMP in the morning. 7. Antibiotics per Infectious Disease. 8. Resume home medications. Roberto Georges D.O. DR: Elba JOB#: [id number] CC:
[2018-10-24 16:00] VITALS: BP 119/79
[2018-10-24] MEDS ORDERED: Nulytely 4L ORAL SCH (16:00)
[2018-10-24] MEDS ORDERED: Bisacodyl EC 5mg tab ORAL SCH (16:00)
[2018-10-24] MEDS: D5 1/2NS w/KCl 20mEq 1,000 ML IV SCH (16:50)
[2018-10-24 20:00] VITALS: BP 122/60
[2018-10-24] MEDS: TraZODone 50mg tab ORAL SCH (21:19)
[2018-10-25] VITALS: BP 111/59
[2018-10-25] MEDS: Morphine Sulfate 4mg/ml Inj (IV/IM USE ONLY) IVP PRN ×5 (02:45→20:07)
[2018-10-25 04:00] VITALS: BP 137/64
[2018-10-25] MEDS: D5 1/2NS w/KCl 20mEq 1,000 ML IV SCH ×2 (04:37→18:24)
[2018-10-25 06:36] LABS: BASOPHILS % (AUTO) 0.6 % (0.0-2.0); EOSINOPHILS % (AUTO) 2.1 % (0.0-3.0); HEMATOCRIT 47.4 % (42.0-52.0); HEMOGLOBIN 15.3 G/DL (14.2-18.0); LYMPHOCYTES % (AUTO) 16.6 % (20.0-45.0); MEAN CORPUSCULAR VOLUME 86 FL (80-99); MONOCYTES % (AUTO) 9.8 % (1.0-10.0); NEUTROPHILS % (AUTO) 70.9 % (45.0-75.0); PLATELET COUNT 102 K/UL (150-450); RED BLOOD COUNT 5.52 M/UL (4.70-6.10); RED CELL DISTRIBUTION WIDTH 14.1 % (11.6-14.8); WHITE BLOOD COUNT 7.1 K/UL (4.8-10.8)
[2018-10-25 06:56] LABS: ALANINE AMINOTRANSFERASE 80 U/L (12-78); ALBUMIN 2.9 G/DL (3.4-5.0); ALBUMIN/GLOBULIN RATIO 0.5 (1.0-2.7); ALKALINE PHOSPHATASE 78 U/L (46-116); ANION GAP 7 mmol/L (5-15); ASPARTATE AMINO TRANSFERASE 73 U/L (15-37); BILIRUBIN,TOTAL 0.7 MG/DL (0.2-1.0); BLOOD UREA NITROGEN 11 mg/dL (7-18); CALCIUM 8.4 MG/DL (8.5-10.1); CARBON DIOXIDE 25 MMOL/L (21-32); CHLORIDE 106 MMOL/L (98-107); CREATININE 0.9 MG/DL (0.55-1.30); SODIUM 138 MMOL/L (136-145)
[2018-10-25 07:19] LABS: AMMONIA 48 umol/L (11-32)
[2018-10-25 08:00] VITALS: BP 131/74
[2018-10-25] MEDS: Docusate 100mg cap ORAL SCH ×2 (08:15→17:17)
[2018-10-25] MEDS: Tamsulosin 0.4mg cap ORAL SCH ×2 (08:15→17:17)
[2018-10-25] MEDS: Sertraline 50mg tab ORAL SCH (08:16)
[2018-10-25] MEDS: Metoprolol 25mg tab ORAL SCH ×2 (08:17→20:06)
[2018-10-25 12:00] VITALS: BP 138/64
[2018-10-25] MEDS ORDERED: Magnesium Citrate Liq Btl ORAL ONE (12:00)
--- NOTE | 2018-10-25 12:00 | GI Progress Note ---
Assessment/Plan Problems: (1) Gaseous abdominal distention ICD Codes: R14.0 - Abdominal distension (gaseous) SNOMED: 226817987 (2) Abdominal pain ICD Codes: R10.9 - Unspecified abdominal pain SNOMED: 94269395 (3) Bloody stool ICD Codes: K92.1 - Melena SNOMED: 145212690 (4) Nausea & vomiting ICD Codes: R11.2 - Nausea with vomiting, unspecified SNOMED: 76564947 Status: unchanged Status Narrative Discussed with Dr. Ramos. Assessment/Plan colonoscopy cancelled today, patient unable to tolerate prep given no anemia and no recurrent bleed, will follow up as an outpatient KUB for abdominal distention will advance diet pending imaging study bowel regime >> mag citrate x1. Simethicone prn. prn transfusion possible history of Hep C cirrhosis, fu panel will consider endoscopy if necessary pain mgmt zofran prn fu labs The patient was seen and examined at bedside and all new and available data was reviewed in the patients chart. I agree with the above findings, impression and plan. (Patient seen earlier today. Signature stamp does not reflect patient encounter time.). - Arthur Ramos MD Subjective Subjective abdominal pain abdominal distention unable to tolerate golytely prep Objective Last 24 Hour Vital Signs Date Time Temp Pulse Resp B/P (MAP) Pulse Ox O2 Delivery O2 Flow Rate FiO2 10/25/18 09:00 Room Air 10/25/18 08:17 81 131/74 10/25/18 08:00 98.6 81 20 131/74 (93) 99 10/25/18 04:00 98.1 67 20 137/64 (88) 94 10/25/18 00:00 98.3 68 18 111/59 (76) 95 10/24/18 21:20 65 122/60 10/24/18 21:00 Room Air 10/24/18 20:00 99.1 65 20 122/60 (80) 95 10/24/18 19:17 98.8 10/24/18 16:00 98.8 86 17 119/79 (92) 98 10/24/18 14:10 97.4 10/24/18 12:00 97.4 63 17 112/58 (76) 94 Intake and Output 10/24/18 10/25/18 19:00 07:00 Intake Total 1650 ml 825 ml Output Total 900 ml 1000 ml Balance 750 ml -175 ml IV Total 1150 ml 825 ml Other 500 ml Output Urine Total 900 ml 1000 ml Laboratory Tests Test 10/25/18 05:10 White Blood Count 7.1 K/UL (4.8-10.8) Red Blood Count 5.52 M/UL (4.70-6.10) Hemoglobin 15.3 G/DL (14.2-18.0) Hematocrit 47.4 % (42.0-52.0) Mean Corpuscular Volume 86 FL (80-99) Mean Corpuscular Hemoglobin 27.6 PG (27.0-31.0) Mean Corpuscular Hemoglobin Concent 32.2 G/DL (32.0-36.0) Red Cell Distribution Width 14.1 % (11.6-14.8) Platelet Count 102 K/UL (150-450) L Mean Platelet Volume 8.6 FL (6.5-10.1) Neutrophils (%) (Auto) 70.9 % (45.0-75.0) Lymphocytes (%) (Auto) 16.6 % (20.0-45.0) L Monocytes (%) (Auto) 9.8 % (1.0-10.0) Eosinophils (%) (Auto) 2.1 % (0.0-3.0) Basophils (%) (Auto) 0.6 % (0.0-2.0) Sodium Level 138 MMOL/L (136-145) Potassium Level 4.0 MMOL/L (3.5-5.1) Chloride Level 106 MMOL/L (98-107) Carbon Dioxide Level 25 MMOL/L (21-32) Anion Gap 7 mmol/L (5-15) Blood Urea Nitrogen 11 mg/dL (7-18) Creatinine 0.9 MG/DL (0.55-1.30) Estimat Glomerular Filtration Rate > 60 mL/min (>60) Glucose Level 90 MG/DL (74-106) Calcium Level 8.4 MG/DL (8.5-10.1) L Total Bilirubin 0.7 MG/DL (0.2-1.0) Aspartate Amino Transf (AST/SGOT) 73 U/L (15-37) H Alanine Aminotransferase (ALT/SGPT) 80 U/L (12-78) H Alkaline Phosphatase 78 U/L (46-116) Ammonia 48 umol/L (11-32) H Total Protein 8.5 G/DL (6.4-8.2) H Albumin 2.9 G/DL (3.4-5.0) L Globulin 5.6 g/dL Albumin/Globulin Ratio 0.5 (1.0-2.7) L Height (Feet): 6 Height (Inches): 4.00 Weight (Pounds): 290 General Appearance: WD/WN, no apparent distress, alert Cardiovascular: normal rate Respiratory/Chest: normal breath sounds, no respiratory distress Abdominal Exam: normal bowel sounds, non tender, soft, distended Extremities: non-tender Santiago Rouse NP Oct 25, 2018 12:00
--- NOTE | 2018-10-25 12:22 | Consultation ---
History of Present Illness General Date patient seen: Oct 25, 2018 Chief Complaint: Nausea, Vomiting, and Diarrhea Reason for Consultation: inpatient manageemnt Present Illness HPI 52-year-old male with hx of psychosis, HTN, BPH, CVA with left sided weakness, halfway resident brought in by EMS with CC of emesis and the bloody stools. This reports having lower abdominal pain as well as decreased urine output. He reports having prior history of renal stent. The pain is described as sharp in nature localized to the right lower abdomen. He denies any fever. He reports having diarrhea as well as black stool. Allergies: Coded Allergies: ACETAMINOPHEN (Verified Allergy, Unknown, 08/28/18) ASPIRIN (Verified Allergy, Unknown, 08/28/18) KETOROLAC (Verified Allergy, Unknown, 08/28/18) NSAIDS (NON-STEROIDAL ANTI-INFLAMMA (Verified Allergy, Unknown, 09/09/18) Medication History Scheduled Aripiprazole* (Abilify*), 5 MG ORAL BEDTIME, (Reported) Atorvastatin Calcium* (Atorvastatin Calcium*), 20 MG ORAL BEDTIME, (Reported) Bisacodyl (Bisacodyl), 10 MG RC PRN, (Reported) Carisoprodol* (Carisoprodol*), 350 MG ORAL QID, (Reported) Clopidogrel Bisulfate* (Plavix*), 75 MG ORAL DAILY, (Reported) Cranberry Fruit Concentrate (Cranberry), 900 MG PO BID, (Reported) Docusate Sodium* (Colace*), 100 MG ORAL DAILY, (Reported) Famotidine (Famotidine), 20 MG ORAL AC, (Reported) Finasteride* (Proscar*), 5 MG ORAL DAILY, (Reported) Folic Acid* (Folic Acid*), 1 MG ORAL DAILY, (Reported) Gabapentin* (Gabapentin*), 600 MG ORAL THREE TIMES A DAY, (Reported) Lactulose (Lactulose*), 30 ML ORAL DAILY, (Reported) Metoprolol Tartrate* (Metoprolol Tartrate*), 25 MG ORAL EVERY 12 HOURS, ( Reported) Multivitamin With Minerals (Multivitamins With Minerals*), 1 TAB ORAL DAILY, ( Reported) Sertraline Hcl* (Zoloft*), 50 MG ORAL DAILY, (Reported) Tamsulosin Hcl (Tamsulosin Hcl*), 0.4 MG ORAL BID, (Reported) Trazodone Hcl* (Desyrel*), 50 MG ORAL BEDTIME, (Reported) Scheduled PRN Magnesium Hydroxide* (Milk Of Magnesia*), 30 ML ORAL BEDTIME PRN for IF NO BM X 3 DAYS, (Reported) Na Phos,M-B/Na Phos,Di-Ba* (Fleet Enema*), 133 ML RECTAL QOD PRN for IF BISACODYL INEFFECTIVE, (Reported) Tramadol Hcl* (Ultram*), 50 MG ORAL Q8HR PRN for SEVERE PAIN (8-10), (Reported) Discontinued Medications Amino Acids/Protein Hydrolys (Pro-Stat Liquid), 30 ML ORAL TWICE A DAY, ( Reported) Discontinued Reason: Therapy completed Aripiprazole* (Abilify*), 5 MG ORAL HS, (Reported) Discontinued Reason: Prescription changed Magnesium Oxide/Mag Aa Chelate (Magnesium 300 Mg Capsule), 400 MG PO DAILY, ( Reported) Discontinued Reason: Therapy completed Melatonin (Melatonin), 3 MG ORAL BEDTIME PRN for Insomnia, (Reported) Discontinued Reason: Therapy completed Nitrofurantoin Monohyd/M-Cryst* (Macrobid 100 Mg*), 100 MG ORAL EVERY 12 HOURS Discontinued Reason: Therapy completed Tramadol Hcl (Tramadol Hcl), 50 MG ORAL Q6HR, (Reported) Discontinued Reason: Prescription changed Vitamin D (Vitamin D3), 5,000 UNITS ORAL DAILY, (Reported) Discontinued Reason: Therapy completed Patient History 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, daughter Resuscitation status Advanced Directive on File Past Medical/Surgical History Past Medical/Surgical History: (1) History of CVA (cerebrovascular accident) (2) Psychosis (3) CAD (coronary artery disease) (4) History of urethral stent (5) Nephrolithiasis (6) Intractable abdominal pain Review of Systems All Other Systems: negative except mentioned in HPI Physical Exam General Appearance: WD/WN Lines, tubes and drains: peripheral HEENT: normocephalic Neck: non-tender, normal alignment Respiratory/Chest: chest wall non-tender, lungs clear Cardiovascular/Chest: normal peripheral pulses, normal rate, no JVD Abdomen: normal bowel sounds, non tender Genitourinary/Rectal: normal genital exam Extremities: normal range of motion Skin Exam: normal pigmentation 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 Last 24 Hour Vital Signs Date Time Temp Pulse Resp B/P (MAP) Pulse Ox O2 Delivery O2 Flow Rate FiO2 10/25/18 09:00 Room Air 10/25/18 08:17 81 131/74 10/25/18 08:00 98.6 81 20 131/74 (93) 99 10/25/18 04:00 98.1 67 20 137/64 (88) 94 10/25/18 00:00 98.3 68 18 111/59 (76) 95 10/24/18 21:20 65 122/60 10/24/18 21:00 Room Air 10/24/18 20:00 99.1 65 20 122/60 (80) 95 10/24/18 19:17 98.8 10/24/18 16:00 98.8 86 17 119/79 (92) 98 10/24/18 14:10 97.4 Intake and Output 10/24/18 10/25/18 19:00 07:00 Intake Total 1650 ml 825 ml Output Total 900 ml 1000 ml Balance 750 ml -175 ml IV Total 1150 ml 825 ml Other 500 ml Output Urine Total 900 ml 1000 ml Laboratory Tests Test 10/25/18 05:10 White Blood Count 7.1 K/UL (4.8-10.8) Red Blood Count 5.52 M/UL (4.70-6.10) Hemoglobin 15.3 G/DL (14.2-18.0) Hematocrit 47.4 % (42.0-52.0) Mean Corpuscular Volume 86 FL (80-99) Mean Corpuscular Hemoglobin 27.6 PG (27.0-31.0) Mean Corpuscular Hemoglobin Concent 32.2 G/DL (32.0-36.0) Red Cell Distribution Width 14.1 % (11.6-14.8) Platelet Count 102 K/UL (150-450) L Mean Platelet Volume 8.6 FL (6.5-10.1) Neutrophils (%) (Auto) 70.9 % (45.0-75.0) Lymphocytes (%) (Auto) 16.6 % (20.0-45.0) L Monocytes (%) (Auto) 9.8 % (1.0-10.0) Eosinophils (%) (Auto) 2.1 % (0.0-3.0) Basophils (%) (Auto) 0.6 % (0.0-2.0) Sodium Level 138 MMOL/L (136-145) Potassium Level 4.0 MMOL/L (3.5-5.1) Chloride Level 106 MMOL/L (98-107) Carbon Dioxide Level 25 MMOL/L (21-32) Anion Gap 7 mmol/L (5-15) Blood Urea Nitrogen 11 mg/dL (7-18) Creatinine 0.9 MG/DL (0.55-1.30) Estimat Glomerular Filtration Rate > 60 mL/min (>60) Glucose Level 90 MG/DL (74-106) Calcium Level 8.4 MG/DL (8.5-10.1) L Total Bilirubin 0.7 MG/DL (0.2-1.0) Aspartate Amino Transf (AST/SGOT) 73 U/L (15-37) H Alanine Aminotransferase (ALT/SGPT) 80 U/L (12-78) H Alkaline Phosphatase 78 U/L (46-116) Ammonia 48 umol/L (11-32) H Total Protein 8.5 G/DL (6.4-8.2) H Albumin 2.9 G/DL (3.4-5.0) L Globulin 5.6 g/dL Albumin/Globulin Ratio 0.5 (1.0-2.7) L Height (Feet): 6 Height (Inches): 4.00 Weight (Pounds): 290 Medications Current Medications Medications (Trade) Dose Ordered Sig/Hugo Route PRN Reason Start Time Stop Time Status Last Admin Dose Admin Al Hydroxide/Mg Hydroxide (Mylanta II) 30 ml Q6H PRN ORAL dyspepsia 10/23/18 14:50 11/22/18 14:49 Aripiprazole (Abilify) 5 mg BEDTIME ORAL 10/23/18 21:00 11/22/18 20:59 10/24/18 21:19 Carisoprodol (Soma) 350 mg Q8HR ORAL 10/23/18 22:00 11/22/18 21:59 10/25/18 05:33 Dextrose (Dextrose 50%) 25 ml Q30M PRN IV Hypoglycemia 10/23/18 14:51 11/22/18 14:50 Dextrose (Dextrose 50%) 50 ml Q30M PRN IV Hypoglycemia 10/23/18 14:51 11/22/18 14:50 Dextrose/ Electrolytes 1,000 ml @ 75 mls/hr [id number] IV 10/24/18 16:00 11/23/18 15:59 10/25/18 04:37 Diphenhydramine HCl (Benadryl) 25 mg Q6H PRN ORAL Itching/Pruritis 10/23/18 14:50 11/22/18 14:49 10/24/18 06:40 Docusate Sodium (Colace) 100 mg EVERY 12 HOURS ORAL 10/23/18 21:00 11/22/18 20:59 10/25/18 08:15 Famotidine (Pepcid I.v.) 20 mg Q12HR IVP 10/23/18 21:00 11/22/18 20:59 10/25/18 09:02 Gabapentin (Neurontin) 600 mg THREE TIMES A DAY ORAL 10/23/18 18:00 11/22/18 17:59 10/25/18 08:15 Lorazepam (Ativan 2mg/ml 1ml) 0.5 mg Q4H PRN IV For Anxiety 10/23/18 14:50 10/30/18 14:49 Magnesium Hydroxide (Mom) 30 ml HSPRN PRN ORAL Constipation 10/23/18 21:00 11/22/18 20:59 Metoprolol Tartrate (Lopressor) 25 mg EVERY 12 HOURS ORAL 10/23/18 21:00 11/22/18 20:59 10/25/18 08:17 Morphine Sulfate (Morphine Sulfate) 1 mg Q4H PRN IVP Mild Pain(1-3) 10/23/18 14:51 10/30/18 14:50 10/24/18 09:57 Morphine Sulfate (Morphine Sulfate) 2 mg Q4H PRN IVP Moderate Pain (Pain Scale 4-6) 10/23/18 14:51 10/30/18 14:50 Morphine Sulfate (Morphine Sulfate) 4 mg Q4H PRN IVP Severe Pain (Pain Scale 7-10) 10/23/18 14:52 10/30/18 14:51 10/25/18 11:02 Ondansetron HCl (Zofran) 4 mg Q6H PRN IVP Nausea & Vomiting 10/23/18 14:50 1/7/19 14:49 Sertraline HCl (Zoloft) 50 mg DAILY ORAL 10/24/18 09:00 11/23/18 08:59 10/25/18 08:16 Tamsulosin HCl (Flomax) 0.4 mg BID ORAL 10/23/18 18:00 11/22/18 17:59 10/25/18 08:15 Trazodone HCl (Desyrel) 50 mg BEDTIME ORAL 10/23/18 21:00 11/22/18 20:59 10/24/18 21:19 Assessment/Plan Problem List: (1) Lower GI bleed ICD Codes: K92.2 - Gastrointestinal hemorrhage, unspecified SNOMED: 08603690 (2) History of urethral stent SNOMED: 374572380 (3) History of CVA (cerebrovascular accident) ICD Codes: Z86.73 - Personal history of transient ischemic attack (TIA), and cerebral infarction without residual deficits SNOMED: 774522854 (4) Psychosis ICD Codes: F29 - Unspecified psychosis not due to a substance or known physiological condition SNOMED: 22081708 (5) Intractable abdominal pain ICD Codes: R10.9 - Unspecified abdominal pain SNOMED: 30193644, 184608016 (6) CAD (coronary artery disease) ICD Codes: I25.10 - Atherosclerotic heart disease of [place] coronary artery without angina pectoris SNOMED: 84615106 (7) Nephrolithiasis ICD Codes: N20.0 - Calculus of kidney SNOMED: 38385837 Assessment/Plan NPO iv fluids symptomatic treatment GI evaluation dvt prophylaxis Lexy Christiansen MD Oct 25, 2018 12:22
--- NOTE | 2018-10-25 13:02 | Consultation ---
History of Present Illness General Date patient seen: Oct 25, 2018 Chief Complaint: Nausea, Vomiting, and Diarrhea Reason for Consultation: inpatient manageemnt Present Illness HPI 52 y/o M with hx of psychosis, HTN, prostate surgery, Hep C, laminectomy, GERD, cholelithiasis, duodenal diverticulum, constipation, BPH, MDD, rheumatic fever 1990, CVA 2012 with left sided weakness, nephrolithiasis, renal stent, [facility] resident presents to ED on 10/23 with emesis, bloody stools, decreased urine output and 1 week of R lower abd pain (06/25, cramping in nature). Denied fever Allergies: Coded Allergies: ACETAMINOPHEN (Verified Allergy, Unknown, 08/28/18) ASPIRIN (Verified Allergy, Unknown, 08/28/18) KETOROLAC (Verified Allergy, Unknown, 08/28/18) NSAIDS (NON-STEROIDAL ANTI-INFLAMMA (Verified Allergy, Unknown, 09/09/18) Medication History Scheduled Aripiprazole* (Abilify*), 5 MG ORAL BEDTIME, (Reported) Atorvastatin Calcium* (Atorvastatin Calcium*), 20 MG ORAL BEDTIME, (Reported) Bisacodyl (Bisacodyl), 10 MG RC PRN, (Reported) Carisoprodol* (Carisoprodol*), 350 MG ORAL QID, (Reported) Clopidogrel Bisulfate* (Plavix*), 75 MG ORAL DAILY, (Reported) Cranberry Fruit Concentrate (Cranberry), 900 MG PO BID, (Reported) Docusate Sodium* (Colace*), 100 MG ORAL DAILY, (Reported) Famotidine (Famotidine), 20 MG ORAL AC, (Reported) Finasteride* (Proscar*), 5 MG ORAL DAILY, (Reported) Folic Acid* (Folic Acid*), 1 MG ORAL DAILY, (Reported) Gabapentin* (Gabapentin*), 600 MG ORAL THREE TIMES A DAY, (Reported) Lactulose (Lactulose*), 30 ML ORAL DAILY, (Reported) Metoprolol Tartrate* (Metoprolol Tartrate*), 25 MG ORAL EVERY 12 HOURS, ( Reported) Multivitamin With Minerals (Multivitamins With Minerals*), 1 TAB ORAL DAILY, ( Reported) Sertraline Hcl* (Zoloft*), 50 MG ORAL DAILY, (Reported) Tamsulosin Hcl (Tamsulosin Hcl*), 0.4 MG ORAL BID, (Reported) Trazodone Hcl* (Desyrel*), 50 MG ORAL BEDTIME, (Reported) Scheduled PRN Magnesium Hydroxide* (Milk Of Magnesia*), 30 ML ORAL BEDTIME PRN for IF NO BM X 3 DAYS, (Reported) Na Phos,M-B/Na Phos,Di-Ba* (Fleet Enema*), 133 ML RECTAL QOD PRN for IF BISACODYL INEFFECTIVE, (Reported) Tramadol Hcl* (Ultram*), 50 MG ORAL Q8HR PRN for SEVERE PAIN (8-10), (Reported) Discontinued Medications Amino Acids/Protein Hydrolys (Pro-Stat Liquid), 30 ML ORAL TWICE A DAY, ( Reported) Discontinued Reason: Therapy completed Aripiprazole* (Abilify*), 5 MG ORAL HS, (Reported) Discontinued Reason: Prescription changed Magnesium Oxide/Mag Aa Chelate (Magnesium 300 Mg Capsule), 400 MG PO DAILY, ( Reported) Discontinued Reason: Therapy completed Melatonin (Melatonin), 3 MG ORAL BEDTIME PRN for Insomnia, (Reported) Discontinued Reason: Therapy completed Nitrofurantoin Monohyd/M-Cryst* (Macrobid 100 Mg*), 100 MG ORAL EVERY 12 HOURS Discontinued Reason: Therapy completed Tramadol Hcl (Tramadol Hcl), 50 MG ORAL Q6HR, (Reported) Discontinued Reason: Prescription changed Vitamin D (Vitamin D3), 5,000 UNITS ORAL DAILY, (Reported) Discontinued Reason: Therapy completed Patient History 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 The patient denies any recent tobacco, alcohol, or drug abuse, although he has prior history of alcohol usage and tobacco usage, he never used drugs according to him. Fhx: non contributory Review of Systems All Other Systems: negative except mentioned in HPI Physical Exam Physical Exam Narrative GENERAL: Calm in bed, oriented x2, slight distress secondary to abdominal pain. CARDIOVASCULAR: No murmur. LUNGS: Distant and clear. ABDOMEN: Bowel sound positive. Slightly tender. No guarding. No rigidity. No rebound. EXTREMITIES: No cyanosis, clubbing, or edema. NEUROLOGIC: The patient moves all extremities, slightly weak. Last 24 Hour Vital Signs Date Time Temp Pulse Resp B/P (MAP) Pulse Ox O2 Delivery O2 Flow Rate FiO2 10/25/18 12:00 97.8 80 18 138/64 (88) 99 10/25/18 09:00 Room Air 10/25/18 08:17 81 131/74 10/25/18 08:00 98.6 81 20 131/74 (93) 99 10/25/18 04:00 98.1 67 20 137/64 (88) 94 10/25/18 00:00 98.3 68 18 111/59 (76) 95 10/24/18 21:20 65 122/60 10/24/18 21:00 Room Air 10/24/18 20:00 99.1 65 20 122/60 (80) 95 10/24/18 19:17 98.8 10/24/18 16:00 98.8 86 17 119/79 (92) 98 10/24/18 14:10 97.4 Intake and Output 10/24/18 10/25/18 19:00 07:00 Intake Total 1650 ml 825 ml Output Total 900 ml 1000 ml Balance 750 ml -175 ml IV Total 1150 ml 825 ml Other 500 ml Output Urine Total 900 ml 1000 ml Laboratory Tests Test 10/25/18 05:10 White Blood Count 7.1 K/UL (4.8-10.8) Red Blood Count 5.52 M/UL (4.70-6.10) Hemoglobin 15.3 G/DL (14.2-18.0) Hematocrit 47.4 % (42.0-52.0) Mean Corpuscular Volume 86 FL (80-99) Mean Corpuscular Hemoglobin 27.6 PG (27.0-31.0) Mean Corpuscular Hemoglobin Concent 32.2 G/DL (32.0-36.0) Red Cell Distribution Width 14.1 % (11.6-14.8) Platelet Count 102 K/UL (150-450) L Mean Platelet Volume 8.6 FL (6.5-10.1) Neutrophils (%) (Auto) 70.9 % (45.0-75.0) Lymphocytes (%) (Auto) 16.6 % (20.0-45.0) L Monocytes (%) (Auto) 9.8 % (1.0-10.0) Eosinophils (%) (Auto) 2.1 % (0.0-3.0) Basophils (%) (Auto) 0.6 % (0.0-2.0) Sodium Level 138 MMOL/L (136-145) Potassium Level 4.0 MMOL/L (3.5-5.1) Chloride Level 106 MMOL/L (98-107) Carbon Dioxide Level 25 MMOL/L (21-32) Anion Gap 7 mmol/L (5-15) Blood Urea Nitrogen 11 mg/dL (7-18) Creatinine 0.9 MG/DL (0.55-1.30) Estimat Glomerular Filtration Rate > 60 mL/min (>60) Glucose Level 90 MG/DL (74-106) Calcium Level 8.4 MG/DL (8.5-10.1) L Total Bilirubin 0.7 MG/DL (0.2-1.0) Aspartate Amino Transf (AST/SGOT) 73 U/L (15-37) H Alanine Aminotransferase (ALT/SGPT) 80 U/L (12-78) H Alkaline Phosphatase 78 U/L (46-116) Ammonia 48 umol/L (11-32) H Total Protein 8.5 G/DL (6.4-8.2) H Albumin 2.9 G/DL (3.4-5.0) L Globulin 5.6 g/dL Albumin/Globulin Ratio 0.5 (1.0-2.7) L Free Thyroxine 1.33 NG/DL (0.76-1.46) Free Triiodothyronine 2.2 pg/mL (2.3-4.2) L Height (Feet): 6 Height (Inches): 4.00 Weight (Pounds): 290 Medications Current Medications Medications (Trade) Dose Ordered Sig/Hugo Route PRN Reason Start Time Stop Time Status Last Admin Dose Admin Al Hydroxide/Mg Hydroxide (Mylanta II) 30 ml Q6H PRN ORAL dyspepsia 10/23/18 14:50 11/22/18 14:49 Aripiprazole (Abilify) 5 mg BEDTIME ORAL 10/23/18 21:00 11/22/18 20:59 10/24/18 21:19 Carisoprodol (Soma) 350 mg Q8HR ORAL 10/23/18 22:00 11/22/18 21:59 10/25/18 05:33 Dextrose (Dextrose 50%) 25 ml Q30M PRN IV Hypoglycemia 10/23/18 14:51 11/22/18 14:50 Dextrose (Dextrose 50%) 50 ml Q30M PRN IV Hypoglycemia 10/23/18 14:51 11/22/18 14:50 Dextrose/ Electrolytes 1,000 ml @ 75 mls/hr [id number] IV 10/24/18 16:00 11/23/18 15:59 10/25/18 04:37 Diphenhydramine HCl (Benadryl) 25 mg Q6H PRN ORAL Itching/Pruritis 10/23/18 14:50 11/22/18 14:49 10/24/18 06:40 Docusate Sodium (Colace) 100 mg EVERY 12 HOURS ORAL 10/23/18 21:00 11/22/18 20:59 10/25/18 08:15 Famotidine (Pepcid I.v.) 20 mg Q12HR IVP 10/23/18 21:00 11/22/18 20:59 10/25/18 09:02 Gabapentin (Neurontin) 600 mg THREE TIMES A DAY ORAL 10/23/18 18:00 11/22/18 17:59 10/25/18 08:15 Lorazepam (Ativan 2mg/ml 1ml) 0.5 mg Q4H PRN IV For Anxiety 10/23/18 14:50 10/30/18 14:49 Magnesium Hydroxide (Mom) 30 ml HSPRN PRN ORAL Constipation 10/23/18 21:00 11/22/18 20:59 Metoprolol Tartrate (Lopressor) 25 mg EVERY 12 HOURS ORAL 10/23/18 21:00 11/22/18 20:59 10/25/18 08:17 Morphine Sulfate (Morphine Sulfate) 1 mg Q4H PRN IVP Mild Pain(1-3) 10/23/18 14:51 10/30/18 14:50 10/24/18 09:57 Morphine Sulfate (Morphine Sulfate) 2 mg Q4H PRN IVP Moderate Pain (Pain Scale 4-6) 10/23/18 14:51 10/30/18 14:50 Morphine Sulfate (Morphine Sulfate) 4 mg Q4H PRN IVP Severe Pain (Pain Scale 7-10) 10/23/18 14:52 10/30/18 14:51 10/25/18 11:02 Ondansetron HCl (Zofran) 4 mg Q6H PRN IVP Nausea & Vomiting 10/23/18 14:50 11/22/18 14:49 Sertraline HCl (Zoloft) 50 mg DAILY ORAL 10/24/18 09:00 11/23/18 08:59 10/25/18 08:16 Tamsulosin HCl (Flomax) 0.4 mg BID ORAL 10/23/18 18:00 11/22/18 17:59 10/25/18 08:15 Trazodone HCl (Desyrel) 50 mg BEDTIME ORAL 10/23/18 21:00 11/22/18 20:59 10/24/18 21:19 Assessment/Plan Assessment/Plan Abx: None Assessment: Afebrile No leukocytosis GIB RLQ pain- 2ry to hepatitis -Abd US: Cholelithiasis with apparent wall thickening measuring 3 - 4 mm. Negative sonographic Cook sign. -CT abd/p : Liver: Fatty and slightly nodular liver. Correlate for cirrhosis. Gallbladder and bile ducts: Cholelithiasis. Elevated LFTs, improving Hx of Hep C,p robable cirrhosis psychosis HTN prostate surgery laminectomy GERD cholelithiasis duodenal diverticulum constipation BPH MDD rheumatic fever 1990 CVA 2012 with left sided weakness nephrolithiasis renal stent [facility] resident Plan: -Continue to monitor off abx -f/u cx -Monitor CBC/C MP, temperatures -hep serologies, HIV sc -GI, Sx f/u Thank you for this consultation. Will continue to follow along with you. Discussed with Nesha Mccoy M.D. Oct 25, 2018 13:02
--- NOTE | 2018-10-25 14:13 | General Progress Note ---
Assessment/Plan Problem List: (1) UTI (urinary tract infection) ICD Codes: N39.0 - Urinary tract infection, site not specified SNOMED: 99939262 (2) Depressed ICD Codes: F32.9 - Major depressive disorder, single episode, unspecified SNOMED: 87777992 (3) Cirrhosis ICD Codes: K74.60 - Unspecified cirrhosis of liver SNOMED: 17769508 (4) Thrombocytopenia ICD Codes: D69.6 - Thrombocytopenia, unspecified SNOMED: 142810008 (5) Intractable abdominal pain ICD Codes: R10.9 - Unspecified abdominal pain SNOMED: 59429017, 605038642 (6) Lower GI bleed ICD Codes: K92.2 - Gastrointestinal hemorrhage, unspecified SNOMED: 39213511 (7) Psychosis ICD Codes: F29 - Unspecified psychosis not due to a substance or known physiological condition SNOMED: 52555862 (8) History of CVA (cerebrovascular accident) ICD Codes: Z86.73 - Personal history of transient ischemic attack (TIA), and cerebral infarction without residual deficits SNOMED: 791561322 Status: unchanged Assessment/Plan ot pt diet abx per id gi/heme f/u cbc bmp am Subjective Constitutional: Reports: weakness Allergies: Coded Allergies: ACETAMINOPHEN (Verified Allergy, Unknown, 08/28/18) ASPIRIN (Verified Allergy, Unknown, 08/28/18) KETOROLAC (Verified Allergy, Unknown, 08/28/18) NSAIDS (NON-STEROIDAL ANTI-INFLAMMA (Verified Allergy, Unknown, 09/09/18) All Systems: reviewed and negative except above Subjective calm in bed Objective Last 24 Hour Vital Signs Date Time Temp Pulse Resp B/P (MAP) Pulse Ox O2 Delivery O2 Flow Rate FiO2 10/25/18 12:00 97.8 80 18 138/64 (88) 99 10/25/18 09:00 Room Air 10/25/18 08:17 81 131/74 10/25/18 08:00 98.6 81 20 131/74 (93) 99 10/25/18 04:00 98.1 67 20 137/64 (88) 94 10/25/18 00:00 98.3 68 18 111/59 (76) 95 10/24/18 21:20 65 122/60 10/24/18 21:00 Room Air 10/24/18 20:00 99.1 65 20 122/60 (80) 95 10/24/18 19:17 98.8 10/24/18 16:00 98.8 86 17 119/79 (92) 98 Intake and Output 10/24/18 10/25/18 19:00 07:00 Intake Total 1650 ml 825 ml Output Total 900 ml 1000 ml Balance 750 ml -175 ml IV Total 1150 ml 825 ml Other 500 ml Output Urine Total 900 ml 1000 ml Laboratory Tests 10/25/18 05:10: White Blood Count 7.1, Red Blood Count 5.52, Hemoglobin 15.3, Hematocrit 47.4, Mean Corpuscular Volume 86, Mean Corpuscular Hemoglobin 27.6, Mean Corpuscular Hemoglobin Concent 32.2, Red Cell Distribution Width 14.1, Platelet Count 102L, Mean Platelet Volume 8.6, Neutrophils (%) (Auto) 70.9, Lymphocytes (%) (Auto) 16.6L, Monocytes (%) (Auto) 9.8, Eosinophils (%) (Auto) 2.1, Basophils (%) (Auto ) 0.6, Sodium Level 138, Potassium Level 4.0, Chloride Level 106, Carbon Dioxide Level 25, Anion Gap 7, Blood Urea Nitrogen 11, Creatinine 0.9, Estimat Glomerular Filtration Rate > 60, Glucose Level 90, Calcium Level 8.4L, Total Bilirubin 0.7, Aspartate Amino Transf (AST/SGOT) 73H, Alanine Aminotransferase ( ALT/SGPT) 80H, Alkaline Phosphatase 78, Ammonia 48H, Total Protein 8.5H, Albumin 2.9L, Globulin 5.6, Albumin/Globulin Ratio 0.5L, Free Thyroxine 1.33, Free Triiodothyronine 2.2L Height (Feet): 6 Height (Inches): 4.00 Weight (Pounds): 290 General Appearance: lethargic EENT: normal ENT inspection Neck: normal alignment Cardiovascular: normal peripheral pulses, normal rate, regular rhythm Respiratory/Chest: chest wall non-tender, lungs clear, normal breath sounds Abdomen: normal bowel sounds, non tender, soft Extremities: normal inspection Edema: no edema noted Arm (L), no edema noted Arm (R), no edema noted Leg (L), no edema noted Leg (R), no edema noted Pedal (L), no edema noted Pedal (R), no edema noted Generalized Neurologic: motor weakness Skin: normal pigmentation, warm/dry Roberto Georges DO Oct 25, 2018 14:13
--- NOTE | 2018-10-25 14:36 | Diagnostic Imaging Report ---
Indication: Abdominal pain Comparison: None Single view of the abdomen obtained Findings: Mildly distended small and large bowel noted. There is a Wilson catheter present. The bones are osteopenic. IMPRESSION: No acute findings
--- NOTE | 2018-10-25 15:04 | Consultation ---
Consult Note Consult Note Hematology Consult Chief Complaint: Nausea, Vomiting, and Diarrhea FADI MD: Gagan Georges RFC: low platelets DOS: 10.25.18 ID 52-year-old male brought in by EMS from [facility]. The patient reportedly had been having increased the emesis and the bloody stools. This reports having lower abdominal pain as well as decreased urine output. He reports having prior history of renal stent. He states this pain feels like prior episodes of kidney stones. The pain is described as sharp in nature localized to the right lower abdomen. He denies any fever. He reports having diarrhea as well as black stool.The patient reportedly has been weak on the left side chronically since a CVA. Seen by gi and they want to eval as outpatient, low platelets noted and heme was consulted. Allergies: ACETAMINOPHEN (Verified Allergy, Unknown, 08/28/18) ASPIRIN (Verified Allergy, Unknown, 08/28/18) KETOROLAC (Verified Allergy, Unknown, 08/28/18) NSAIDS (NON-STEROIDAL ANTI-INFLAMMA (Verified Allergy, Unknown, 09/09/18) Past Medical History: see triage record Reviewed Nursing Documentation: PMH: Agreed; PSxH: Agreed Past Medical History: No History, Except For Hx Cardiac Problems: Yes - STROKE 2012, RHEUMATIC FEVER 1990 Hx Hypertension: Yes Hx Cancer: No Hx Gastrointestinal Problems: No - GERD Hx Dialysis: No - History of kidney stones, UTI, BPH Hx Neurological Problems: Yes Hx Cerebrovascular Accident: Yes - Left sided hemiparesis Hx Weakness: Yes Hx Neurologic Surgery: No ER ROS - General Review of Systems All Other Systems: negative except mentioned in HPI ER Physical Exam - General Physical Exam Last 24 Hour Vital Signs Date Time Temp Pulse Resp B/P (MAP) Pulse Ox O2 Delivery O2 Flow Rate FiO2 10/25/18 12:00 97.8 80 18 138/64 (88) 99 10/25/18 09:00 Room Air 10/25/18 08:17 81 131/74 10/25/18 08:00 98.6 81 20 131/74 (93) 99 10/25/18 04:00 98.1 67 20 137/64 (88) 94 10/25/18 00:00 98.3 68 18 111/59 (76) 95 10/24/18 21:20 65 122/60 10/24/18 21:00 Room Air 10/24/18 20:00 99.1 65 20 122/60 (80) 95 10/24/18 19:17 98.8 10/24/18 16:00 98.8 86 17 119/79 (92) 98 General Appearance: normal inspection, well appearing, no apparent distress Head: atraumatic ENT: normal ENT inspection, hearing grossly normal, normal voice Neck: normal inspection, full range of motion, supple, no bony tend Respiratory: normal inspection, lungs clear, normal breath sounds, no respiratory distress, no retraction, no wheezing Cardiovascular #1: regular rate, rhythm, no edema Gastrointestinal: normal inspection, normal bowel sounds, non tender, soft, no guarding, no hernia Genitourinary: no CVA tenderness Musculoskeletal: normal inspection, back normal, normal range of motion Neurologic: normal inspection, alert, responsive, speech normal Psychiatric: normal inspection, judgement/insight normal, mood/affect normal Skin: normal inspection, normal color, no rash Laboratory Tests Test 10/25/18 05:10 White Blood Count 7.1 K/UL (4.8-10.8) Red Blood Count 5.52 M/UL (4.70-6.10) Hemoglobin 15.3 G/DL (14.2-18.0) Hematocrit 47.4 % (42.0-52.0) Mean Corpuscular Volume 86 FL (80-99) Mean Corpuscular Hemoglobin 27.6 PG (27.0-31.0) Mean Corpuscular Hemoglobin Concent 32.2 G/DL (32.0-36.0) Red Cell Distribution Width 14.1 % (11.6-14.8) Platelet Count 102 K/UL (150-450) L Mean Platelet Volume 8.6 FL (6.5-10.1) Neutrophils (%) (Auto) 70.9 % (45.0-75.0) Lymphocytes (%) (Auto) 16.6 % (20.0-45.0) L Monocytes (%) (Auto) 9.8 % (1.0-10.0) Eosinophils (%) (Auto) 2.1 % (0.0-3.0) Basophils (%) (Auto) 0.6 % (0.0-2.0) Sodium Level 138 MMOL/L (136-145) Potassium Level 4.0 MMOL/L (3.5-5.1) Chloride Level 106 MMOL/L (98-107) Carbon Dioxide Level 25 MMOL/L (21-32) Anion Gap 7 mmol/L (5-15) Blood Urea Nitrogen 11 mg/dL (7-18) Creatinine 0.9 MG/DL (0.55-1.30) Estimat Glomerular Filtration Rate > 60 mL/min (>60) Glucose Level 90 MG/DL (74-106) Calcium Level 8.4 MG/DL (8.5-10.1) L Total Bilirubin 0.7 MG/DL (0.2-1.0) Aspartate Amino Transf (AST/SGOT) 73 U/L (15-37) H Alanine Aminotransferase (ALT/SGPT) 80 U/L (12-78) H Alkaline Phosphatase 78 U/L (46-116) Ammonia 48 umol/L (11-32) H Total Protein 8.5 G/DL (6.4-8.2) H Albumin 2.9 G/DL (3.4-5.0) L Globulin 5.6 g/dL Albumin/Globulin Ratio 0.5 (1.0-2.7) L Free Thyroxine 1.33 NG/DL (0.76-1.46) Free Triiodothyronine 2.2 pg/mL (2.3-4.2) L Current Medications Medications (Trade) Dose Ordered Sig/Hugo Route PRN Reason Start Time Stop Time Status Last Admin Dose Admin Al Hydroxide/Mg Hydroxide (Mylanta II) 30 ml Q6H PRN ORAL dyspepsia 10/23/18 14:50 11/22/18 14:49 Aripiprazole (Abilify) 5 mg BEDTIME ORAL 10/23/18 21:00 11/22/18 20:59 10/24/18 21:19 Carisoprodol (Soma) 350 mg Q8HR ORAL 10/23/18 22:00 11/22/18 21:59 10/25/18 13:12 Dextrose (Dextrose 50%) 25 ml Q30M PRN IV Hypoglycemia 10/23/18 14:51 11/22/18 14:50 Dextrose (Dextrose 50%) 50 ml Q30M PRN IV Hypoglycemia 10/23/18 14:51 11/22/18 14:50 Dextrose/ Electrolytes 1,000 ml @ 75 mls/hr [id number] IV 10/24/18 16:00 11/23/18 15:59 10/25/18 04:37 Diphenhydramine HCl (Benadryl) 25 mg Q6H PRN ORAL Itching/Pruritis 10/23/18 14:50 11/22/18 14:49 10/24/18 06:40 Docusate Sodium (Colace) 100 mg EVERY 12 HOURS ORAL 10/23/18 21:00 11/22/18 20:59 10/25/18 08:15 Famotidine (Pepcid I.v.) 20 mg Q12HR IVP 10/23/18 21:00 11/22/18 20:59 10/25/18 09:02 Gabapentin (Neurontin) 600 mg THREE TIMES A DAY ORAL 10/23/18 18:00 11/22/18 17:59 10/25/18 13:12 Lorazepam (Ativan 2mg/ml 1ml) 0.5 mg Q4H PRN IV For Anxiety 10/23/18 14:50 10/30/18 14:49 Magnesium Hydroxide (Mom) 30 ml HSPRN PRN ORAL Constipation 10/23/18 21:00 11/22/18 20:59 Metoprolol Tartrate (Lopressor) 25 mg EVERY 12 HOURS ORAL 10/23/18 21:00 11/22/18 20:59 10/25/18 08:17 Morphine Sulfate (Morphine Sulfate) 1 mg Q4H PRN IVP Mild Pain(1-3) 10/23/18 14:51 10/30/18 14:50 10/24/18 09:57 Morphine Sulfate (Morphine Sulfate) 2 mg Q4H PRN IVP Moderate Pain (Pain Scale 4-6) 10/23/18 14:51 10/30/18 14:50 Morphine Sulfate (Morphine Sulfate) 4 mg Q4H PRN IVP Severe Pain (Pain Scale 7-10) 10/23/18 14:52 10/30/18 14:51 10/25/18 11:02 Ondansetron HCl (Zofran) 4 mg Q6H PRN IVP Nausea & Vomiting 10/23/18 14:50 11/22/18 14:49 Sertraline HCl (Zoloft) 50 mg DAILY ORAL 10/24/18 09:00 11/23/18 08:59 10/25/18 08:16 Tamsulosin HCl (Flomax) 0.4 mg BID ORAL 10/23/18 18:00 11/22/18 17:59 10/25/18 08:15 Trazodone HCl (Desyrel) 50 mg BEDTIME ORAL 10/23/18 21:00 11/22/18 20:59 10/24/18 21:19 Assessment and Recs: # Thrombocytopenia is related to hep C, stable approx 100k --> us of the abdomen ordered --> hep and hiv panel to be re-reviewed again --> meds reviewed --> other labs from prior visits reviewed as well # Gi bleed with blood stool --> h/j stable, therefore outpatient eval # Abdominal pain --> with blood emesis --> outpatient w.u --> surgery was consulted # History of CVA (cerebrovascular accident) # [facility] Labs Test 10/23/18 12:24 10/23/18 12:44 White Blood Count 7.5 K/UL (4.8-10.8) Red Blood Count 5.76 M/UL (4.70-6.10) Hemoglobin 15.5 G/DL (14.2-18.0) Hematocrit 48.2 % (42.0-52.0) Mean Corpuscular Volume 84 FL (80-99) Mean Corpuscular Hemoglobin 26.9 PG (27.0-31.0) Mean Corpuscular Hemoglobin Concent 32.2 G/DL (32.0-36.0) Red Cell Distribution Width 13.9 % (11.6-14.8) Platelet Count 150 K/UL (150-450) Mean Platelet Volume 10.6 FL (6.5-10.1) Neutrophils (%) (Auto) 71.1 % (45.0-75.0) Lymphocytes (%) (Auto) 17.7 % (20.0-45.0) Monocytes (%) (Auto) 8.1 % (1.0-10.0) Eosinophils (%) (Auto) 2.0 % (0.0-3.0) Basophils (%) (Auto) 1.2 % (0.0-2.0) Prothrombin Time 11.7 SEC (9.30-11.50) Prothromb Time International Ratio 1.1 (0.9-1.1) Activated Partial Thromboplast Time 26 SEC (23-33) Sodium Level 136 MMOL/L (136-145) Potassium Level 5.2 MMOL/L (3.5-5.1) Chloride Level 106 MMOL/L (98-107) Carbon Dioxide Level 23 MMOL/L (21-32) Anion Gap 7 mmol/L (5-15) Blood Urea Nitrogen 16 mg/dL (7-18) Creatinine 0.8 MG/DL (0.55-1.30) Estimat Glomerular Filtration Rate > 60 mL/min (>60) Glucose Level 113 MG/DL (74-106) Calcium Level 8.9 MG/DL (8.5-10.1) Total Bilirubin 0.6 MG/DL (0.2-1.0) Aspartate Amino Transf (AST/SGOT) 129 U/L (15-37) Alanine Aminotransferase (ALT/SGPT) 99 U/L (12-78) Alkaline Phosphatase 85 U/L (46-116) Total Protein 9.4 G/DL (6.4-8.2) Albumin 2.9 G/DL (3.4-5.0) Globulin 6.5 g/dL Albumin/Globulin Ratio 0.4 (1.0-2.7) Lipase 182 U/L (73-393) Urine Color Yellow Urine Appearance Clear Urine pH 7 (4.5-8.0) Urine Specific [place] 1.015 (1.005-1.035) Urine Protein 1+ (NEGATIVE) Urine Glucose (UA) Negative (NEGATIVE) Urine Ketones 1+ (NEGATIVE) Urine Blood Negative (NEGATIVE) Urine Nitrite Positive (NEGATIVE) Urine Bilirubin Negative (NEGATIVE) Urine Urobilinogen 1 MG/DL (0.0-1.0) Urine Leukocyte Esterase 2+ (NEGATIVE) Urine RBC 0-2 /HPF (0 - 0) Urine WBC 2-4 /HPF (0 - 0) Urine Squamous Epithelial Cells Occasional /LPF Urine Bacteria Occasional /HPF (NONE) Bebo Agustin MD Oct 25, 2018 15:04
--- NOTE | 2018-10-25 15:15 | Consultation ---
DATE OF CONSULTATION: 10/25/2018 HISTORY OF PRESENT ILLNESS: The patient is a 52-year-old male patient who was admitted due to GI distress and lower extremity pain but he has altered mental status and confusion. He does have some mood lability and his cognition has declined below his baseline worsened by stress of his medical illness that is why his attending has requested daily psychiatric consultation. PAST MEDICAL HISTORY: He has a history of hypertension and he also has a history of flank pain, GI distress. ALLERGY HISTORY: He has allergies to aspirin, Tylenol, and other NSAIDs. MEDICATIONS: Psychotropic medications on admission, Zoloft 50 mg daily, Abilify 5 mg at bedtime. SUBSTANCE ABUSE HISTORY: He denies any drug or alcohol abuse. FAMILY PSYCHIATRIC HISTORY: Denies. PAIN ASSESSMENT: 07/26. DEVELOPMENTAL PROBLEMS: Denies. SOCIAL HISTORY: The patient lives in [facility], financially supported by [facility] and Medicare. PSYCHIATRIC HISTORY: History of bipolar 2, rule out paranoid schizophrenia acute exacerbation. STRENGTHS: He is motivated to get better and has a place to live. WEAKNESSES AND LIABILITIES: He is impulsive. No support system. MENTAL STATUS EXAMINATION: This is a 52-year-old male patient. Appearance is disheveled. Attitude is irritable and agitated. Affect guarded and restricted. Intellect is poor. Mood depressed and anxious. Motor activity, psychomotor agitation. Attention span is poor. Orientation x2. Speech is pressured. Thought processes disorganized and logical. Thought content, auditory hallucinations and paranoid delusions. Insight and judgment is poor. DIAGNOSES: 1. Bipolar 2, rule out paranoid schizophrenia. 2. Medical problems, hypertension, flank pain. 3. Psychosocial stressors, financial and functional parameters are severe. PLAN: Plan for this patient is to treat him with a medication regimen of Abilify 5 mg at bedtime, Zoloft 50 mg daily. A 20 minutes of cognitive behavioral therapy session is provided to help this patient identify his automatic negative thought process and help to convert those negative thoughts to more positive thought processes in order to reduce depression and anxiety and help him with a more adaptive behavioral pattern. Chart is reviewed. Discussed with staff. Seen and assessed in his room. Amy Benites M.D. DR: Betty JOB#: [id number] CC:
--- NOTE | 2018-10-25 15:20 | General Surgery Progress Note ---
General Surgery-Progress Note Subjective Symptoms: improved, pain absent, passing flatus Additional Comments improving Objective Last 24 Hour Vital Signs Date Time Temp Pulse Resp B/P (MAP) Pulse Ox O2 Delivery O2 Flow Rate FiO2 10/25/18 12:00 97.8 80 18 138/64 (88) 99 10/25/18 09:00 Room Air 10/25/18 08:17 81 131/74 10/25/18 08:00 98.6 81 20 131/74 (93) 99 10/25/18 04:00 98.1 67 20 137/64 (88) 94 10/25/18 00:00 98.3 68 18 111/59 (76) 95 10/24/18 21:20 65 122/60 10/24/18 21:00 Room Air 10/24/18 20:00 99.1 65 20 122/60 (80) 95 10/24/18 19:17 98.8 10/24/18 16:00 98.8 86 17 119/79 (92) 98 I&O Intake and Output 10/24/18 10/25/18 19:00 07:00 Intake Total 1650 ml 825 ml Output Total 900 ml 1000 ml Balance 750 ml -175 ml IV Total 1150 ml 825 ml Other 500 ml Output Urine Total 900 ml 1000 ml Drains: none Cardiovascular: RSR Respiratory: clear Abdomen: soft, distended, non-tender, present bowel sounds Extremities: edema, no cyanosis Laboratory Tests Test 10/25/18 05:10 White Blood Count 7.1 K/UL (4.8-10.8) Red Blood Count 5.52 M/UL (4.70-6.10) Hemoglobin 15.3 G/DL (14.2-18.0) Hematocrit 47.4 % (42.0-52.0) Mean Corpuscular Volume 86 FL (80-99) Mean Corpuscular Hemoglobin 27.6 PG (27.0-31.0) Mean Corpuscular Hemoglobin Concent 32.2 G/DL (32.0-36.0) Red Cell Distribution Width 14.1 % (11.6-14.8) Platelet Count 102 K/UL (150-450) L Mean Platelet Volume 8.6 FL (6.5-10.1) Neutrophils (%) (Auto) 70.9 % (45.0-75.0) Lymphocytes (%) (Auto) 16.6 % (20.0-45.0) L Monocytes (%) (Auto) 9.8 % (1.0-10.0) Eosinophils (%) (Auto) 2.1 % (0.0-3.0) Basophils (%) (Auto) 0.6 % (0.0-2.0) Sodium Level 138 MMOL/L (136-145) Potassium Level 4.0 MMOL/L (3.5-5.1) Chloride Level 106 MMOL/L (98-107) Carbon Dioxide Level 25 MMOL/L (21-32) Anion Gap 7 mmol/L (5-15) Blood Urea Nitrogen 11 mg/dL (7-18) Creatinine 0.9 MG/DL (0.55-1.30) Estimat Glomerular Filtration Rate > 60 mL/min (>60) Glucose Level 90 MG/DL (74-106) Calcium Level 8.4 MG/DL (8.5-10.1) L Ferritin Pending Total Bilirubin 0.7 MG/DL (0.2-1.0) Aspartate Amino Transf (AST/SGOT) 73 U/L (15-37) H Alanine Aminotransferase (ALT/SGPT) 80 U/L (12-78) H Alkaline Phosphatase 78 U/L (46-116) Ammonia 48 umol/L (11-32) H Total Protein 8.5 G/DL (6.4-8.2) H Albumin 2.9 G/DL (3.4-5.0) L Globulin 5.6 g/dL Albumin/Globulin Ratio 0.5 (1.0-2.7) L Free Thyroxine 1.33 NG/DL (0.76-1.46) Free Triiodothyronine 2.2 pg/mL (2.3-4.2) L Plan Problems: (1) Intractable abdominal pain Assessment & Plan: improving US noted CT noted pain resolved -okay for diet -no surgical intervention planned thank you will follow with Rashid Bond Oct 25, 2018 15:20
[2018-10-25 16:00] VITALS: BP 133/66
[2018-10-25 20:00] VITALS: BP 138/73
[2018-10-25] MEDS: TraZODone 50mg tab ORAL SCH (20:06)
[2018-10-25] MEDS ORDERED: Miralax 17gm pkt ORAL SCH (21:00)
[2018-10-26] VITALS (7 sets, daily range): BP systolic 121–135; BP diastolic 56–79
[2018-10-26] MEDS: Morphine Sulfate 4mg/ml Inj (IV/IM USE ONLY) IVP PRN ×2 (00:43→05:42)
[2018-10-26] MEDS: Tamsulosin 0.4mg cap ORAL SCH ×2 (08:48→17:54)
[2018-10-26] MEDS: Docusate 100mg cap ORAL SCH ×3 (08:48→17:56)
[2018-10-26] MEDS: Sertraline 50mg tab ORAL SCH (08:48)
[2018-10-26] MEDS: Metoprolol 25mg tab ORAL SCH ×2 (08:48→20:55)
[2018-10-26] MEDS: D5 1/2NS w/KCl 20mEq 1,000 ML IV SCH ×2 (08:49→23:00)
[2018-10-26] MEDS ORDERED: Miralax 17gm pkt ORAL SCH (09:00)
[2018-10-26 09:01] LABS: HEMATOCRIT 44.2 % (42.0-52.0); HEMOGLOBIN 14.5 G/DL (14.2-18.0); MEAN CORPUSCULAR VOLUME 85 FL (80-99); PLATELET COUNT 77 K/UL (150-450); RED BLOOD COUNT 5.22 M/UL (4.70-6.10); WHITE BLOOD COUNT 4.3 K/UL (4.8-10.8)
[2018-10-26 09:17] LABS: ANION GAP 7 mmol/L (5-15); BLOOD UREA NITROGEN 7 mg/dL (7-18); CALCIUM 8.2 MG/DL (8.5-10.1); CARBON DIOXIDE 25 MMOL/L (21-32); CHLORIDE 102 MMOL/L (98-107); CREATININE 0.9 MG/DL (0.55-1.30); POTASSIUM 3.9 MMOL/L (3.5-5.1); SODIUM 134 MMOL/L (136-145)
[2018-10-26] MEDS: Morphine Sulfate 2mg/ml Inj IVP PRN ×4 (09:50→23:00)
--- NOTE | 2018-10-26 10:09 | Infectious Diseases Prog Note ---
Assessment/Plan Assessment/Plan Abx: None Assessment: Low grade fever x1 No leukocytosis GIB RLQ pain- 2ry to hepatitis -Abd US: Cholelithiasis with apparent wall thickening measuring 3 - 4 mm. Negative sonographic Cook sign. -CT abd/p : Liver: Fatty and slightly nodular liver. Correlate for cirrhosis. Gallbladder and bile ducts: Cholelithiasis. Elevated LFTs, improving Hx of Hep C,p robable cirrhosis -Hep Serologies p psychosis HTN prostate surgery laminectomy GERD cholelithiasis duodenal diverticulum constipation BPH MDD rheumatic fever 1990 CVA 2012 with left sided weakness nephrolithiasis renal stent long-term resident Plan: -Continue to monitor off abx -f/u cx -Monitor CBC/C MP, temperatures -f/u hep serologies, HIV sc -GI, Sx f/u -HIV VL and CMP am Thank you for this consultation. Will continue to follow along with you. Discussed with RN. Subjective Allergies: Coded Allergies: ACETAMINOPHEN (Verified Allergy, Unknown, 08/28/18) ASPIRIN (Verified Allergy, Unknown, 08/28/18) KETOROLAC (Verified Allergy, Unknown, 08/28/18) NSAIDS (NON-STEROIDAL ANTI-INFLAMMA (Verified Allergy, Unknown, 09/09/18) Subjective Tm 100 no leukocytosis Objective Vital Signs Last 24 Hour Vital Signs Date Time Temp Pulse Resp B/P (MAP) Pulse Ox O2 Delivery O2 Flow Rate FiO2 10/26/18 10:01 98.4 83 18 127/62 (83) 95 10/26/18 08:48 81 129/56 10/26/18 08:00 100.0 81 18 129/56 (80) 95 10/26/18 04:00 97.7 82 18 121/63 (82) 95 99 10/26/18 00:00 98.2 93 20 133/79 (97) 96 99 10/25/18 21:00 Room Air 10/25/18 20:37 98.7 10/25/18 20:06 99 136/78 10/25/18 20:00 97.8 86 19 138/73 (94) 96 99 10/25/18 16:00 98.7 86 20 133/66 (88) 96 10/25/18 12:00 97.8 80 18 138/64 (88) 99 Height (Feet): 6 Height (Inches): 4.00 Weight (Pounds): 290 Objective GENERAL: Calm in bed, oriented x2, slight distress secondary to abdominal pain. CARDIOVASCULAR: No murmur. LUNGS: Distant and clear. ABDOMEN: Bowel sound positive. Slightly tender. No guarding. No rigidity. No rebound. EXTREMITIES: No cyanosis, clubbing, or edema. NEUROLOGIC: The patient moves all extremities, slightly weak. Microbiology Date/Time Source Procedure Growth Status 10/23/18 18:48 Rectum VRE Culture - Final Enterococcus Faecalis - Vre Complete 10/23/18 18:48 Rectum - Final NO CARBAPENEM-RESISTANT ENTEROBACTERI... Complete Laboratory Tests Test 10/26/18 03:15 10/26/18 06:40 Stool Occult Blood Pending White Blood Count 4.3 K/UL (4.8-10.8) L Red Blood Count 5.22 M/UL (4.70-6.10) Hemoglobin 14.5 G/DL (14.2-18.0) Hematocrit 44.2 % (42.0-52.0) Mean Corpuscular Volume 85 FL (80-99) Mean Corpuscular Hemoglobin 27.8 PG (27.0-31.0) Mean Corpuscular Hemoglobin Concent 32.9 G/DL (32.0-36.0) Red Cell Distribution Width 14.0 % (11.6-14.8) Platelet Count 77 K/UL (150-450) L Mean Platelet Volume 8.4 FL (6.5-10.1) Neutrophils (%) (Auto) % (45.0-75.0) Lymphocytes (%) (Auto) % (20.0-45.0) Monocytes (%) (Auto) % (1.0-10.0) Eosinophils (%) (Auto) % (0.0-3.0) Basophils (%) (Auto) % (0.0-2.0) Differential Total Cells Counted 100 Neutrophils % (Manual) 65 % (45-75) Lymphocytes % (Manual) 19 % (20-45) L Monocytes % (Manual) 12 % (1-10) H Eosinophils % (Manual) 4 % (0-3) H Basophils % (Manual) 0 % (0-2) Band Neutrophils 0 % (0-8) Platelet Estimate Decreased L Platelet Morphology Normal Red Blood Cell Morphology Normal Sodium Level 134 MMOL/L (136-145) L Potassium Level 3.9 MMOL/L (3.5-5.1) Chloride Level 102 MMOL/L (98-107) Carbon Dioxide Level 25 MMOL/L (21-32) Anion Gap 7 mmol/L (5-15) Blood Urea Nitrogen 7 mg/dL (7-18) Creatinine 0.9 MG/DL (0.55-1.30) Estimat Glomerular Filtration Rate > 60 mL/min (>60) Glucose Level 100 MG/DL (74-106) Calcium Level 8.2 MG/DL (8.5-10.1) L Hepatitis A IgM Antibody Pending Hepatitis A Antibody Total Pending Hepatitis B Surface Antigen Pending Hepatitis B Surface Antibody Pending Hepatitis B Core Total Antibody Pending Hepatitis B Core IgM Antibody Pending Hepatitis C Antibody Pending Hepatitis C RNA (PCR) IUs/ml Pending Hepatitis C RNA (PCR) log IUs/ml Pending HIV (1&2) Antibody Rapid Negative (NEGATIVE) Current Medications Medications (Trade) Dose Ordered Sig/Hugo Route PRN Reason Start Time Stop Time Status Last Admin Dose Admin Al Hydroxide/Mg Hydroxide (Mylanta II) 30 ml Q6H PRN ORAL dyspepsia 10/23/18 14:50 11/22/18 14:49 Aripiprazole (Abilify) 5 mg BEDTIME ORAL 10/23/18 21:00 11/22/18 20:59 10/25/18 20:06 Carisoprodol (Soma) 350 mg THREE TIMES A DAY ORAL 10/25/18 18:00 11/22/18 21:59 10/26/18 08:48 Dextrose (Dextrose 50%) 25 ml Q30M PRN IV Hypoglycemia 10/23/18 14:51 11/22/18 14:50 Dextrose (Dextrose 50%) 50 ml Q30M PRN IV Hypoglycemia 10/23/18 14:51 11/22/18 14:50 Dextrose/ Electrolytes 1,000 ml @ 75 mls/hr [id number] IV 10/24/18 16:00 11/23/18 15:59 10/26/18 08:49 Diphenhydramine HCl (Benadryl) 25 mg Q6H PRN ORAL Itching/Pruritis 10/23/18 14:50 11/22/18 14:49 10/24/18 06:40 Docusate Sodium (Colace) 100 mg TID ORAL 10/25/18 18:00 11/22/18 20:59 10/26/18 08:48 Famotidine (Pepcid I.v.) 20 mg Q12HR IVP 10/23/18 21:00 11/22/18 20:59 10/26/18 08:49 Gabapentin (Neurontin) 600 mg THREE TIMES A DAY ORAL 10/23/18 18:00 11/22/18 17:59 10/26/18 08:48 Lorazepam (Ativan 2mg/ml 1ml) 0.5 mg Q4H PRN IV For Anxiety 10/23/18 14:50 10/30/18 14:49 Magnesium Hydroxide (Mom) 30 ml HSPRN PRN ORAL Constipation 10/23/18 21:00 11/22/18 20:59 Metoprolol Tartrate (Lopressor) 25 mg EVERY 12 HOURS ORAL 10/23/18 21:00 11/22/18 20:59 10/26/18 08:48 Morphine Sulfate (Morphine Sulfate) 1 mg Q4H PRN IVP Mild Pain(1-3) 10/23/18 14:51 10/30/18 14:50 10/24/18 09:57 Morphine Sulfate (Morphine Sulfate) 2 mg Q4H PRN IVP Moderate Pain (Pain Scale 4-6) 10/23/18 14:51 10/30/18 14:50 10/26/18 09:50 Morphine Sulfate (Morphine Sulfate) 4 mg Q4H PRN IVP Severe Pain (Pain Scale 7-10) 10/23/18 14:52 10/30/18 14:51 10/26/18 05:42 Ondansetron HCl (Zofran) 4 mg Q6H PRN IVP Nausea & Vomiting 10/23/18 14:50 11/22/18 14:49 Polyethylene Glycol (Miralax) 17 gm BEDTIME ORAL 10/25/18 21:00 11/25/18 08:59 10/25/18 20:07 Sertraline HCl (Zoloft) 50 mg DAILY ORAL 10/24/18 09:00 11/23/18 08:59 10/26/18 08:48 Tamsulosin HCl (Flomax) 0.4 mg BID ORAL 12/8/18 18:00 11/22/18 17:59 10/26/18 08:48 Trazodone HCl (Desyrel) 50 mg BEDTIME ORAL 10/23/18 21:00 11/22/18 20:59 10/25/18 20:06 Nesha Park M.D. Oct 26, 2018 10:09
--- NOTE | 2018-10-26 11:03 | General Progress Note ---
Assessment/Plan Status: stable Assessment/Plan # Thrombocytopenia due to underlying hep C, stable approx 100k --> Cont to monitor and tend plt count for stability/improvement --> Hep panel pending, HIV negative --> US abd does not cirrhosis or hsm --> Peripheral smear ordered to evaluate for blasts /schistocytes --> abx and other meds have been reviewed --> ok for ppx if plt >50k w/ wither heparin or lovenox --> Transfuse if Plt < 20k and fever, or if Plt < 10k without fever # Leukopenia - due to underlying hep C --> Continue to monitor for improvement --> Hep panel pending, HIV negative --> US abd does not show cirrhosis or hepatosplenomegaly # GI bleed with blood stool --> h/h stable, therefore outpatient eval # Abdominal pain --> with blood emesis, outpatient w.u --> surgery was consulted # History of CVA (cerebrovascular accident) # Gallstone GREATLY APPRECIATE CONSULTATION. Subjective Date patient seen: Oct 26, 2018 Gastrointestinal/Abdominal: Reports: abdomen distended Allergies: Coded Allergies: ACETAMINOPHEN (Verified Allergy, Unknown, 08/28/18) ASPIRIN (Verified Allergy, Unknown, 08/28/18) KETOROLAC (Verified Allergy, Unknown, 08/28/18) NSAIDS (NON-STEROIDAL ANTI-INFLAMMA (Verified Allergy, Unknown, 09/09/18) All Systems: reviewed and negative except above Subjective Pt awake and alert. No acute events. Abd distended. VS stable. Objective Last 24 Hour Vital Signs Date Time Temp Pulse Resp B/P (MAP) Pulse Ox O2 Delivery O2 Flow Rate FiO2 10/26/18 10:01 98.4 83 18 127/62 (83) 95 10/26/18 09:00 Room Air 10/26/18 08:48 81 129/56 10/26/18 08:00 100.0 81 18 129/56 (80) 95 10/26/18 04:00 97.7 82 18 121/63 (82) 95 99 10/26/18 00:00 98.2 93 20 133/79 (97) 96 99 10/25/18 21:00 Room Air 10/25/18 20:37 98.7 10/25/18 20:06 99 136/78 10/25/18 20:00 97.8 86 19 138/73 (94) 96 99 10/25/18 16:00 98.7 86 20 133/66 (88) 96 10/25/18 12:00 97.8 80 18 138/64 (88) 99 Intake and Output 10/25/18 10/26/18 19:00 07:00 Intake Total 75 ml 1185 ml Output Total 1050 ml 750 ml Balance -975 ml 435 ml Intake Oral 360 ml IV Total 75 ml 825 ml Output Urine Total 1050 ml 750 ml # Voids 1 # Bowel Movements 1 Laboratory Tests 10/26/18 03:15: Stool Occult Blood [Pending] 10/26/18 06:40: White Blood Count 4.3L, Red Blood Count 5.22, Hemoglobin 14.5, Hematocrit 44.2, Mean Corpuscular Volume 85, Mean Corpuscular Hemoglobin 27.8, Mean Corpuscular Hemoglobin Concent 32.9, Red Cell Distribution Width 14.0, Platelet Count 77L, Mean Platelet Volume 8.4, Neutrophils (%) (Auto) , Lymphocytes (%) (Auto) , Monocytes (%) (Auto) , Eosinophils (%) (Auto) , Basophils (%) (Auto) , Differential Total Cells Counted 100, Neutrophils % (Manual) 65, Lymphocytes % ( Manual) 19L, Monocytes % (Manual) 12H, Eosinophils % (Manual) 4H, Basophils % ( Manual) 0, Band Neutrophils 0, Platelet Estimate DecreasedL, Platelet Morphology Normal, Red Blood Cell Morphology Normal, Sodium Level 134L, Potassium Level 3.9, Chloride Level 102, Carbon Dioxide Level 25, Anion Gap 7, Blood Urea Nitrogen 7, Creatinine 0.9, Estimat Glomerular Filtration Rate > 60, Glucose Level 100, Calcium Level 8.2L, Hepatitis A IgM Antibody [Pending], Hepatitis A Antibody Total [Pending], Hepatitis B Surface Antigen [Pending], Hepatitis B Surface Antibody [Pending], Hepatitis B Core Total Antibody [Pending ], Hepatitis B Core IgM Antibody [Pending], Hepatitis C Antibody [Pending], Hepatitis C RNA (PCR) IUs/ml [Pending], Hepatitis C RNA (PCR) log IUs/ml [ Pending], HIV (1&2) Antibody Rapid Negative Height (Feet): 6 Height (Inches): 4.00 Weight (Pounds): 290 Objective General Appearance: normal inspection, well appearing, no apparent distress Head: atraumatic ENT: normal ENT inspection, hearing grossly normal, normal voice Neck: normal inspection, full range of motion, supple, no bony tend Respiratory: normal inspection, lungs clear, normal breath sounds, no respiratory distress, no retraction, no wheezing Cardiovascular #1: regular rate, rhythm, no edema Gastrointestinal: normal inspection, normal bowel sounds, non tender, soft, no guarding, no hernia Genitourinary: no CVA tenderness Musculoskeletal: normal inspection, back normal, normal range of motion Neurologic: normal inspection, alert, responsive, speech normal Psychiatric: normal inspection, judgement/insight normal, mood/affect normal Skin: normal inspection, normal color, no rash Bebo Agustin MD Oct 26, 2018 11:03
--- NOTE | 2018-10-26 11:37 | Pulmonology Progress Note ---
Assessment/Plan Problems: (1) UTI (urinary tract infection) (2) Lower GI bleed (3) History of urethral stent (4) History of CVA (cerebrovascular accident) (5) Psychosis (6) Intractable abdominal pain (7) CAD (coronary artery disease) (8) Nephrolithiasis (9) Cirrhosis Assessment/Plan check cultures abx as per ID GI f/u appreciated symptomatic treatment check labs f/u liver enzymes Subjective ROS Limited/Unobtainable: No Constitutional: Reports: no symptoms HEENT: Repors: no symptoms Respiratory: Reports: no symptoms Allergies: Coded Allergies: ACETAMINOPHEN (Verified Allergy, Unknown, 08/28/18) ASPIRIN (Verified Allergy, Unknown, 08/28/18) KETOROLAC (Verified Allergy, Unknown, 08/28/18) NSAIDS (NON-STEROIDAL ANTI-INFLAMMA (Verified Allergy, Unknown, 09/09/18) Objective Last 24 Hour Vital Signs Date Time Temp Pulse Resp B/P (MAP) Pulse Ox O2 Delivery O2 Flow Rate FiO2 10/26/18 10:01 98.4 83 18 127/62 (83) 95 10/26/18 09:00 Room Air 10/26/18 08:48 81 129/56 10/26/18 08:00 100.0 81 18 129/56 (80) 95 10/26/18 04:00 97.7 82 18 121/63 (82) 95 99 10/26/18 00:00 98.2 93 20 133/79 (97) 96 99 10/25/18 21:00 Room Air 10/25/18 20:37 98.7 10/25/18 20:06 99 136/78 10/25/18 20:00 97.8 86 19 138/73 (94) 96 99 10/25/18 16:00 98.7 86 20 133/66 (88) 96 10/25/18 12:00 97.8 80 18 138/64 (88) 99 Intake and Output 10/25/18 10/26/18 19:00 07:00 Intake Total 75 ml 1185 ml Output Total 1050 ml 750 ml Balance -975 ml 435 ml Intake Oral 360 ml IV Total 75 ml 825 ml Output Urine Total 1050 ml 750 ml # Voids 1 # Bowel Movements 1 General Appearance: WD/WN HEENT: normocephalic, atraumatic Respiratory/Chest: chest wall non-tender, lungs clear Cardiovascular: normal peripheral pulses, normal rate Abdomen: normal bowel sounds, soft, non tender Genitourinary: normal external genitalia Skin: no rash Microbiology Date/Time Source Procedure Growth Status 10/23/18 18:48 Rectum VRE Culture - Final Enterococcus Faecalis - Vre Complete 10/23/18 18:48 Rectum - Final NO CARBAPENEM-RESISTANT ENTEROBACTERI... Complete Laboratory Tests 10/26/18 03:15: Stool Occult Blood Negative 10/26/18 06:40: White Blood Count 4.3L, Red Blood Count 5.22, Hemoglobin 14.5, Hematocrit 44.2, Mean Corpuscular Volume 85, Mean Corpuscular Hemoglobin 27.8, Mean Corpuscular Hemoglobin Concent 32.9, Red Cell Distribution Width 14.0, Platelet Count 77L, Mean Platelet Volume 8.4, Neutrophils (%) (Auto) , Lymphocytes (%) (Auto) , Monocytes (%) (Auto) , Eosinophils (%) (Auto) , Basophils (%) (Auto) , Differential Total Cells Counted 100, Neutrophils % (Manual) 65, Lymphocytes % ( Manual) 19L, Monocytes % (Manual) 12H, Eosinophils % (Manual) 4H, Basophils % ( Manual) 0, Band Neutrophils 0, Platelet Estimate DecreasedL, Platelet Morphology Normal, Red Blood Cell Morphology Normal, Sodium Level 134L, Potassium Level 3.9, Chloride Level 102, Carbon Dioxide Level 25, Anion Gap 7, Blood Urea Nitrogen 7, Creatinine 0.9, Estimat Glomerular Filtration Rate > 60, Glucose Level 100, Calcium Level 8.2L, Hepatitis A IgM Antibody [Pending], Hepatitis A Antibody Total [Pending], Hepatitis B Surface Antigen [Pending], Hepatitis B Surface Antibody [Pending], Hepatitis B Core Total Antibody [Pending ], Hepatitis B Core IgM Antibody [Pending], Hepatitis C Antibody [Pending], Hepatitis C RNA (PCR) IUs/ml [Pending], Hepatitis C RNA (PCR) log IUs/ml [ Pending], HIV (1&2) Antibody Rapid Negative Current Medications Medications (Trade) Dose Ordered Sig/Hugo Route PRN Reason Start Time Stop Time Status Last Admin Dose Admin Al Hydroxide/Mg Hydroxide (Mylanta II) 30 ml Q6H PRN ORAL dyspepsia 10/23/18 14:50 11/22/18 14:49 Aripiprazole (Abilify) 5 mg BEDTIME ORAL 10/23/18 21:00 11/22/18 20:59 10/25/18 20:06 Carisoprodol (Soma) 350 mg THREE TIMES A DAY ORAL 10/25/18 18:00 11/22/18 21:59 10/26/18 08:48 Dextrose (Dextrose 50%) 25 ml Q30M PRN IV Hypoglycemia 10/23/18 14:51 11/22/18 14:50 Dextrose (Dextrose 50%) 50 ml Q30M PRN IV Hypoglycemia 10/23/18 14:51 11/22/18 14:50 Dextrose/ Electrolytes 1,000 ml @ 75 mls/hr [id number] IV 10/24/18 16:00 11/23/18 15:59 10/26/18 08:49 Diphenhydramine HCl (Benadryl) 25 mg Q6H PRN ORAL Itching/Pruritis 10/23/18 14:50 11/22/18 14:49 10/24/18 06:40 Docusate Sodium (Colace) 100 mg TID ORAL 10/25/18 18:00 11/22/18 20:59 10/26/18 08:48 Famotidine (Pepcid I.v.) 20 mg Q12HR IVP 10/23/18 21:00 11/22/18 20:59 10/26/18 08:49 Gabapentin (Neurontin) 600 mg THREE TIMES A DAY ORAL 10/23/18 18:00 11/22/18 17:59 10/26/18 08:48 Lorazepam (Ativan 2mg/ml 1ml) 0.5 mg Q4H PRN IV For Anxiety 10/23/18 14:50 10/30/18 14:49 Magnesium Hydroxide (Mom) 30 ml HSPRN PRN ORAL Constipation 10/23/18 21:00 11/22/18 20:59 Metoprolol Tartrate (Lopressor) 25 mg EVERY 12 HOURS ORAL 10/23/18 21:00 11/22/18 20:59 10/26/18 08:48 Morphine Sulfate (Morphine Sulfate) 1 mg Q4H PRN IVP Mild Pain(1-3) 10/23/18 14:51 10/30/18 14:50 10/24/18 09:57 Morphine Sulfate (Morphine Sulfate) 2 mg Q4H PRN IVP Moderate Pain (Pain Scale 4-6) 10/23/18 14:51 10/30/18 14:50 10/26/18 09:50 Morphine Sulfate (Morphine Sulfate) 4 mg Q4H PRN IVP Severe Pain (Pain Scale 7-10) 10/23/18 14:52 10/30/18 14:51 10/26/18 05:42 Ondansetron HCl (Zofran) 4 mg Q6H PRN IVP Nausea & Vomiting 10/23/18 14:50 11/22/18 14:49 Polyethylene Glycol (Miralax) 17 gm BEDTIME ORAL 10/25/18 21:00 11/25/18 08:59 10/25/18 20:07 Sertraline HCl (Zoloft) 50 mg DAILY ORAL 10/24/18 09:00 11/23/18 08:59 10/26/18 08:48 Tamsulosin HCl (Flomax) 0.4 mg BID ORAL 10/23/18 18:00 11/22/18 17:59 10/26/18 08:48 Trazodone HCl (Desyrel) 50 mg BEDTIME ORAL 10/23/18 21:00 11/22/18 20:59 10/25/18 20:06 Lexy Christiansen MD Oct 26, 2018 11:37
--- NOTE | 2018-10-26 13:01 | GI Progress Note ---
Assessment/Plan Problems: (1) Diarrhea ICD Codes: R19.7 - Diarrhea, unspecified SNOMED: 83652976 (2) Psychosis ICD Codes: F29 - Unspecified psychosis not due to a substance or known physiological condition SNOMED: 04269761 (3) Depressed ICD Codes: F32.9 - Major depressive disorder, single episode, unspecified SNOMED: 80978619 (4) Cirrhosis ICD Codes: K74.60 - Unspecified cirrhosis of liver SNOMED: 86684946 (5) Lower GI bleed ICD Codes: K92.2 - Gastrointestinal hemorrhage, unspecified SNOMED: 63554575 Status: stable Status Narrative Discussed with Dr. Ramos. Assessment/Plan colonoscopy cancelled, patient unable to tolerate prep given no anemia and no recurrent bleed, will follow up as an outpatient KUB for abdominal distention >> unremarkable advance diet titrate bowel regime prn transfusion possible history of Hep C cirrhosis, fu labs will consider endoscopy if necessary pain mgmt zofran prn fu labs outpatient GI procedures The patient was seen and examined at bedside and all new and available data was reviewed in the patients chart. I agree with the above findings, impression and plan. (Patient seen earlier today. Signature stamp does not reflect patient encounter time.). - Arthur Ramos MD Subjective Subjective abdominal pain abdominal distention unable to tolerate golytely prep complaining of diarrhea Objective Last 24 Hour Vital Signs Date Time Temp Pulse Resp B/P (MAP) Pulse Ox O2 Delivery O2 Flow Rate FiO2 10/26/18 12:00 99.0 75 17 127/61 (83) 94 10/26/18 10:01 98.4 83 18 127/62 (83) 95 10/26/18 09:00 Room Air 10/26/18 08:48 81 129/56 10/26/18 08:00 100.0 81 18 129/56 (80) 95 10/26/18 04:00 97.7 82 18 121/63 (82) 95 99 10/26/18 00:00 98.2 93 20 133/79 (97) 96 99 10/25/18 21:00 Room Air 10/25/18 20:37 98.7 10/25/18 20:06 99 136/78 10/25/18 20:00 97.8 86 19 138/73 (94) 96 99 10/25/18 16:00 98.7 86 20 133/66 (88) 96 Intake and Output 10/25/18 10/26/18 19:00 07:00 Intake Total 75 ml 1260 ml Output Total 1050 ml 750 ml Balance -975 ml 510 ml Intake Oral 360 ml IV Total 75 ml 900 ml Output Urine Total 1050 ml 750 ml # Voids 1 # Bowel Movements 1 Laboratory Tests Test 10/26/18 03:15 10/26/18 06:40 Stool Occult Blood Negative (NEGATIVE) White Blood Count 4.3 K/UL (4.8-10.8) L Red Blood Count 5.22 M/UL (4.70-6.10) Hemoglobin 14.5 G/DL (14.2-18.0) Hematocrit 44.2 % (42.0-52.0) Mean Corpuscular Volume 85 FL (80-99) Mean Corpuscular Hemoglobin 27.8 PG (27.0-31.0) Mean Corpuscular Hemoglobin Concent 32.9 G/DL (32.0-36.0) Red Cell Distribution Width 14.0 % (11.6-14.8) Platelet Count 77 K/UL (150-450) L Mean Platelet Volume 8.4 FL (6.5-10.1) Neutrophils (%) (Auto) % (45.0-75.0) Lymphocytes (%) (Auto) % (20.0-45.0) Monocytes (%) (Auto) % (1.0-10.0) Eosinophils (%) (Auto) % (0.0-3.0) Basophils (%) (Auto) % (0.0-2.0) Differential Total Cells Counted 100 Neutrophils % (Manual) 65 % (45-75) Lymphocytes % (Manual) 19 % (20-45) L Monocytes % (Manual) 12 % (1-10) H Eosinophils % (Manual) 4 % (0-3) H Basophils % (Manual) 0 % (0-2) Band Neutrophils 0 % (0-8) Platelet Estimate Decreased L Platelet Morphology Normal Red Blood Cell Morphology Normal Sodium Level 134 MMOL/L (136-145) L Potassium Level 3.9 MMOL/L (3.5-5.1) Chloride Level 102 MMOL/L (98-107) Carbon Dioxide Level 25 MMOL/L (21-32) Anion Gap 7 mmol/L (5-15) Blood Urea Nitrogen 7 mg/dL (7-18) Creatinine 0.9 MG/DL (0.55-1.30) Estimat Glomerular Filtration Rate > 60 mL/min (>60) Glucose Level 100 MG/DL (74-106) Calcium Level 8.2 MG/DL (8.5-10.1) L Hepatitis A IgM Antibody Pending Hepatitis A Antibody Total Pending Hepatitis B Surface Antigen Pending Hepatitis B Surface Antibody Pending Hepatitis B Core Total Antibody Pending Hepatitis B Core IgM Antibody Pending Hepatitis C Antibody Pending Hepatitis C RNA (PCR) IUs/ml Pending Hepatitis C RNA (PCR) log IUs/ml Pending HIV (1&2) Antibody Rapid Negative (NEGATIVE) Height (Feet): 6 Height (Inches): 4.00 Weight (Pounds): 290 General Appearance: WD/WN, no apparent distress, alert Cardiovascular: normal rate Respiratory/Chest: normal breath sounds, no respiratory distress Abdominal Exam: normal bowel sounds, non tender, soft Extremities: normal range of motion, non-tender Santiago Rouse NP Oct 26, 2018 13:01
[2018-10-26 15:01] LABS: ALANINE AMINOTRANSFERASE 69 U/L (12-78); ALBUMIN 2.9 G/DL (3.4-5.0); ALKALINE PHOSPHATASE 71 U/L (46-116); ASPARTATE AMINO TRANSFERASE 62 U/L (15-37); BILIRUBIN,DIRECT 0.3 MG/DL (0.0-0.3); BILIRUBIN,TOTAL 0.8 MG/DL (0.2-1.0)
--- NOTE | 2018-10-26 15:06 | General Progress Note ---
Assessment/Plan Problem List: (1) UTI (urinary tract infection) ICD Codes: N39.0 - Urinary tract infection, site not specified SNOMED: 65741177 (2) Depressed ICD Codes: F32.9 - Major depressive disorder, single episode, unspecified SNOMED: 18534901 (3) Cirrhosis ICD Codes: K74.60 - Unspecified cirrhosis of liver SNOMED: 29122353 (4) Thrombocytopenia ICD Codes: D69.6 - Thrombocytopenia, unspecified SNOMED: 949064490 (5) Intractable abdominal pain ICD Codes: R10.9 - Unspecified abdominal pain SNOMED: 93545512, 498978513 (6) Lower GI bleed ICD Codes: K92.2 - Gastrointestinal hemorrhage, unspecified SNOMED: 86587419 (7) Psychosis ICD Codes: F29 - Unspecified psychosis not due to a substance or known physiological condition SNOMED: 68260604 (8) History of CVA (cerebrovascular accident) ICD Codes: Z86.73 - Personal history of transient ischemic attack (TIA), and cerebral infarction without residual deficits SNOMED: 461287694 Status: stable, progressing Assessment/Plan ot pt diet abx per id gi/heme f/u cbc bmp am dc if clear Subjective Constitutional: Reports: weakness Allergies: Coded Allergies: ACETAMINOPHEN (Verified Allergy, Unknown, 08/28/18) ASPIRIN (Verified Allergy, Unknown, 08/28/18) KETOROLAC (Verified Allergy, Unknown, 08/28/18) NSAIDS (NON-STEROIDAL ANTI-INFLAMMA (Verified Allergy, Unknown, 09/09/18) All Systems: reviewed and negative except above Subjective calm in bed Objective Last 24 Hour Vital Signs Date Time Temp Pulse Resp B/P (MAP) Pulse Ox O2 Delivery O2 Flow Rate FiO2 10/26/18 13:11 99.0 10/26/18 13:11 99.0 10/26/18 12:00 99.0 75 17 127/61 (83) 94 10/26/18 10:01 98.4 83 18 127/62 (83) 95 10/26/18 09:00 Room Air 10/26/18 08:48 81 129/56 10/26/18 08:00 100.0 81 18 129/56 (80) 95 10/26/18 04:00 97.7 82 18 121/63 (82) 95 99 10/26/18 00:00 98.2 93 20 133/79 (97) 96 99 10/25/18 21:00 Room Air 10/25/18 20:37 98.7 10/25/18 20:06 99 136/78 10/25/18 20:00 97.8 86 19 138/73 (94) 96 99 10/25/18 16:00 98.7 86 20 133/66 (88) 96 Intake and Output 10/25/18 10/26/18 19:00 07:00 Intake Total 75 ml 1260 ml Output Total 1050 ml 750 ml Balance -975 ml 510 ml Intake Oral 360 ml IV Total 75 ml 900 ml Output Urine Total 1050 ml 750 ml # Voids 1 # Bowel Movements 1 Laboratory Tests 10/26/18 03:15: Stool Occult Blood Negative 10/26/18 06:40: White Blood Count 4.3L, Red Blood Count 5.22, Hemoglobin 14.5, Hematocrit 44.2, Mean Corpuscular Volume 85, Mean Corpuscular Hemoglobin 27.8, Mean Corpuscular Hemoglobin Concent 32.9, Red Cell Distribution Width 14.0, Platelet Count 77L, Mean Platelet Volume 8.4, Neutrophils (%) (Auto) , Lymphocytes (%) (Auto) , Monocytes (%) (Auto) , Eosinophils (%) (Auto) , Basophils (%) (Auto) , Differential Total Cells Counted 100, Neutrophils % (Manual) 65, Lymphocytes % ( Manual) 19L, Monocytes % (Manual) 12H, Eosinophils % (Manual) 4H, Basophils % ( Manual) 0, Band Neutrophils 0, Platelet Estimate DecreasedL, Platelet Morphology Normal, Red Blood Cell Morphology Normal, Sodium Level 134L, Potassium Level 3.9, Chloride Level 102, Carbon Dioxide Level 25, Anion Gap 7, Blood Urea Nitrogen 7, Creatinine 0.9, Estimat Glomerular Filtration Rate > 60, Glucose Level 100, Calcium Level 8.2L, Total Bilirubin 0.8, Direct Bilirubin 0.3 , Aspartate Amino Transf (AST/SGOT) 62H, Alanine Aminotransferase (ALT/SGPT) 69 , Alkaline Phosphatase 71, Total Protein 8.5H, Albumin 2.9L, Hepatitis A IgM Antibody [Pending], Hepatitis A Antibody Total [Pending], Hepatitis B Surface Antigen [Pending], Hepatitis B Surface Antibody [Pending], Hepatitis B Core Total Antibody [Pending], Hepatitis B Core IgM Antibody [Pending], Hepatitis C Antibody [Pending], Hepatitis C RNA (PCR) IUs/ml [Pending], Hepatitis C RNA (PCR ) log IUs/ml [Pending], HIV (1&2) Antibody Rapid Negative Height (Feet): 6 Height (Inches): 4.00 Weight (Pounds): 290 General Appearance: lethargic EENT: normal ENT inspection Neck: normal alignment Cardiovascular: normal peripheral pulses, normal rate, regular rhythm Respiratory/Chest: chest wall non-tender, lungs clear, normal breath sounds Abdomen: normal bowel sounds, non tender, soft Extremities: normal inspection Edema: no edema noted Arm (L), no edema noted Arm (R), no edema noted Leg (L), no edema noted Leg (R), no edema noted Pedal (L), no edema noted Pedal (R), no edema noted Generalized Neurologic: motor weakness Skin: normal pigmentation, warm/dry Roberto Georges DO Oct 26, 2018 15:06
--- NOTE | 2018-10-26 15:15 | Progress Note ---
DATE: 10/26/2018 HISTORY OF PRESENT ILLNESS: This is a 52-year-old male patient who was admitted secondary to GI distress flank pain but he still has altered mental status and confusion worsened by stress of his medical illness that is why the attending has requested daily psychiatric consultation for this patient. MENTAL STATUS EXAMINATION: The patient is a 52-year-old male patient. Appearance is disheveled. Attitude, irritable and agitated. Affect, guarded and restricted. Intellect poor. Mood depressed and anxious. Motor activity, psychomotor agitation. Attention span is poor. Orientation x2. Speech is pressured. Thought process, disorganized, illogical. Thought content, auditory hallucinations and paranoid delusions. Insight and judgment is poor. DIAGNOSIS: Paranoid schizophrenia with acute exacerbation. PLAN: Continue to treat this patient with Abilify 5 mg daily and Zoloft 50 mg daily. Provide him with 20 minutes of cognitive behavioral therapy to help him identify automatic negative thoughts and help to convert those negative thoughts to more positive thinking in order to reduce depression and anxiety and help him with a more adaptive behavioral pattern. Chart is reviewed and discussed with staff. Seen and assessed at bedside. Amy Benites M.D. DR: Betty JOB#: [id number] CC:
[2018-10-26] MEDS: TraZODone 50mg tab ORAL SCH (20:55)
--- NOTE | 2018-10-26 21:35 | General Surgery Progress Note ---
General Surgery-Progress Note Subjective Symptoms: improved Additional Comments resting comfortable. no acute events. feels better. Objective Last 24 Hour Vital Signs Date Time Temp Pulse Resp B/P (MAP) Pulse Ox O2 Delivery O2 Flow Rate FiO2 10/26/18 20:55 89 123/61 10/26/18 20:00 99.2 82 18 123/61 (81) 93 10/26/18 16:00 98.6 75 18 135/64 (87) 94 10/26/18 13:11 99.0 10/26/18 13:11 99.0 10/26/18 12:00 99.0 75 17 127/61 (83) 94 10/26/18 10:01 98.4 83 18 127/62 (83) 95 10/26/18 09:00 Room Air 10/26/18 08:48 81 129/56 10/26/18 08:00 100.0 81 18 129/56 (80) 95 10/26/18 04:00 97.7 82 18 121/63 (82) 95 99 10/26/18 00:00 98.2 93 20 133/79 (97) 96 99 I&O Intake and Output 10/25/18 10/26/18 19:00 07:00 Intake Total 75 ml 1260 ml Output Total 1050 ml 750 ml Balance -975 ml 510 ml Intake Oral 360 ml IV Total 75 ml 900 ml Output Urine Total 1050 ml 750 ml # Voids 1 # Bowel Movements 1 Cardiovascular: RSR Respiratory: clear Abdomen: soft, flat, non-tender, present bowel sounds Extremities: no cyanosis Laboratory Tests Test 10/26/18 03:15 10/26/18 06:40 Stool Occult Blood Negative (NEGATIVE) White Blood Count 4.3 K/UL (4.8-10.8) L Red Blood Count 5.22 M/UL (4.70-6.10) Hemoglobin 14.5 G/DL (14.2-18.0) Hematocrit 44.2 % (42.0-52.0) Mean Corpuscular Volume 85 FL (80-99) Mean Corpuscular Hemoglobin 27.8 PG (27.0-31.0) Mean Corpuscular Hemoglobin Concent 32.9 G/DL (32.0-36.0) Red Cell Distribution Width 14.0 % (11.6-14.8) Platelet Count 77 K/UL (150-450) L Mean Platelet Volume 8.4 FL (6.5-10.1) Neutrophils (%) (Auto) % (45.0-75.0) Lymphocytes (%) (Auto) % (20.0-45.0) Monocytes (%) (Auto) % (1.0-10.0) Eosinophils (%) (Auto) % (0.0-3.0) Basophils (%) (Auto) % (0.0-2.0) Differential Total Cells Counted 100 Neutrophils % (Manual) 65 % (45-75) Lymphocytes % (Manual) 19 % (20-45) L Monocytes % (Manual) 12 % (1-10) H Eosinophils % (Manual) 4 % (0-3) H Basophils % (Manual) 0 % (0-2) Band Neutrophils 0 % (0-8) Platelet Estimate Decreased L Platelet Morphology Normal Red Blood Cell Morphology Normal Sodium Level 134 MMOL/L (136-145) L Potassium Level 3.9 MMOL/L (3.5-5.1) Chloride Level 102 MMOL/L (98-107) Carbon Dioxide Level 25 MMOL/L (21-32) Anion Gap 7 mmol/L (5-15) Blood Urea Nitrogen 7 mg/dL (7-18) Creatinine 0.9 MG/DL (0.55-1.30) Estimat Glomerular Filtration Rate > 60 mL/min (>60) Glucose Level 100 MG/DL (74-106) Calcium Level 8.2 MG/DL (8.5-10.1) L Total Bilirubin 0.8 MG/DL (0.2-1.0) Direct Bilirubin 0.3 MG/DL (0.0-0.3) Aspartate Amino Transf (AST/SGOT) 62 U/L (15-37) H Alanine Aminotransferase (ALT/SGPT) 69 U/L (12-78) Alkaline Phosphatase 71 U/L (46-116) Total Protein 8.5 G/DL (6.4-8.2) H Albumin 2.9 G/DL (3.4-5.0) L Hepatitis A IgM Antibody Pending Hepatitis A Antibody Total Pending Hepatitis B Surface Antigen Pending Hepatitis B Surface Antibody Pending Hepatitis B Core Total Antibody Pending Hepatitis B Core IgM Antibody Pending Hepatitis C Antibody Pending Hepatitis C RNA (PCR) IUs/ml Pending Hepatitis C RNA (PCR) log IUs/ml Pending HIV (1&2) Antibody Rapid Negative (NEGATIVE) Plan Problems: (1) Intractable abdominal pain Assessment & Plan: improving US noted CT noted pain resolved -okay for diet -no surgical intervention planned thank you will follow with Rashid Bond Oct 26, 2018 21:35
--- NOTE | 2018-10-26 23:45 | Consultation ---
DATE OF CONSULTATION: 10/25/2018 NOTE: "VERY POOR AUDIO" PSYCHOTHERAPY CONSULTATION PROGRESS NOTE CONSULTING PHYSICIAN: Dayna Kitchen PsyD. TREATING ATTENDING PHYSICIAN: Roberto Georges D.O. HISTORY OF PRESENT ILLNESS: This patient is a male patient. He is 52 years old . He was brought into the hospital for chronic pain, GI bleed. He has been and referred for psychotherapeutic services due to history of depression. He has also had while he was in the hospital was referred for psychotherapeutic services. Today, this clinician assessed this patient. The patient states that he has been agitated. He is hungry. He is . He is anxious. He states that he does not like to be in the hospital he wants to go to facility. He does not like has been very impulsive. Denies suicidal or homicidal thoughts of ideation. He denies any auditory or visual hallucinations. States that his , however, he states it has become . PAST MEDICAL HISTORY: Includes a history of UTI, cirrhosis, history of CVA, CAD. ALLERGIES: The patient is allergic to acetaminophen, aspirin, NSAIDs, ketorolac. SUBSTANCE ABUSE HISTORY: The patient denies history of alcohol use, illicit substance use, or smoking cigarettes. PSYCHIATRIC HISTORY: The patient has history of depression, possible bipolar disorder, and has been treated with psychotropic medications in the past. SOCIAL HISTORY: The patient is a 52-year-old male patient from [facility]. Financially sustained through [facility]. MENTAL STATUS EXAMINATION: The patient is alert and oriented to person and place. Mood is anxious. Affect is congruent. Thought process is disorganized. Thought content is negative and catastrophic. He has poor attention and concentration. Poor insight, judgment, and impulse control. DIAGNOSES: 1. Bipolar 1 disorder, mixed, moderate without psychotic features. 2. Cirrhosis, UTI, CAD, CVA, abdominal pain. 3. Psychosocial stressors are moderate. PLAN: This clinician assessed this patient and assessed the patient's mental status psychotherapy anxiety and irritability. Also provided the patient cognitive behavioral therapy with anxiety in the last 6 months. Provided the patient with positive positive coping skills. continue behavioral management. This clinician has reviewed the patient's chart. Discussed the treatment with the treatment team. Psychotherapy provided to this patient for minutes. Dayna Kitchen PsyD. DR: Malachi JOB#: [id number] CC:
[2018-10-27] VITALS: BP 120/53
[2018-10-27] MEDS: Morphine Sulfate 2mg/ml Inj IVP PRN ×5 (03:42→20:56)
[2018-10-27 04:00] VITALS: BP 114/57
--- NOTE | 2018-10-27 07:20 | General Progress Note ---
Assessment/Plan Assessment/Plan # Thrombocytopenia due to underlying hep C, stable approx 100k --> Cont to monitor and tend plt count for stability/improvement --> Hep panel in past showed hep c. HIV negative --> US abd does not cirrhosis or hsm --> Peripheral smear ordered to evaluate for blasts /schistocytes and none noted --> abx and other meds have been reviewed --> ok for ppx if plt >50k w/ wither heparin or lovenox --> Trend 109k--> 102k--> 77k # Leukopenia - due to underlying hep C --> Continue to monitor for improvement --> US abd does not show cirrhosis or hepatosplenomegaly # GI bleed with blood stool --> h/h stable, therefore outpatient eval # Abdominal pain --> with blood emesis, outpatient w.u --> surgery was consulted # History of CVA (cerebrovascular accident) # [facility] GREATLY APPRECIATE CONSULTATION. Subjective Constitutional: Denies: no symptoms, chills, diaphoresis, fever, malaise, weakness, other HEENT: Denies: no symptoms, eye pain, blurred vision, tearing, double vision, ear pain, ear discharge, nose pain, nose congestion, throat pain, throat swelling, mouth pain, mouth swelling, other Cardiovascular: Denies: no symptoms, chest pain, edema, irregular heart rate, lightheadedness, palpitations, syncope, other Respiratory: Denies: no symptoms, cough, orthopnea, shortness of breath, SOB with excertion, SOB at rest, sputum, stridor, wheezing, other Gastrointestinal/Abdominal: Denies: no symptoms, abdomen distended, abdominal pain, black stools, tarry stools, blood in stool, constipated, diarrhea, difficulty swallowing, nausea, poor appetite, poor fluid intake, rectal bleeding , vomiting, other Genitourinary: Denies: no symptoms, burning, discharge, frequency, flank pain, hematuria, incontinence, pain, urgency, other Neurologic/Psychiatric: Denies: no symptoms, anxiety, depressed, emotional problems, headache, numbness, paresthesia, pre-existing deficit, seizure, tingling, tremors, weakness, other Endocrine: Denies: no symptoms, excessive sweating, flushing, intolerance to cold, intolerance to heat, increased hunger, increased thirst, increased urine, unexplained weight gain, unexplained weight loss, other Hematologic/Lymphatic: Denies: no symptoms, anemia, easy bleeding, easy bruising, other Allergies: Coded Allergies: ACETAMINOPHEN (Verified Allergy, Unknown, 08/28/18) ASPIRIN (Verified Allergy, Unknown, 08/28/18) KETOROLAC (Verified Allergy, Unknown, 08/28/18) NSAIDS (NON-STEROIDAL ANTI-INFLAMMA (Verified Allergy, Unknown, 09/09/18) Subjective Pt awake and alert. No acute events. Abd distended. VS remain stable. Objective Last 24 Hour Vital Signs Date Time Temp Pulse Resp B/P (MAP) Pulse Ox O2 Delivery O2 Flow Rate FiO2 10/27/18 04:00 98.9 61 20 114/57 (76) 10/27/18 00:00 100.2 72 18 120/53 (75) 10/26/18 22:00 Room Air 10/26/18 20:55 89 123/61 10/26/18 20:00 99.2 82 18 123/61 (81) 93 10/26/18 16:00 98.6 75 18 135/64 (87) 94 10/26/18 13:11 99.0 10/26/18 13:11 99.0 10/26/18 12:00 99.0 75 17 127/61 (83) 94 10/26/18 10:01 98.4 83 18 127/62 (83) 95 10/26/18 09:00 Room Air 10/26/18 08:48 81 129/56 10/26/18 08:00 100.0 81 18 129/56 (80) 95 Intake and Output 10/26/18 10/27/18 19:00 07:00 Intake Total 1505 ml 675 ml Output Total 1875 ml Balance -370 ml 675 ml Intake Oral 680 ml IV Total 825 ml 675 ml Output Urine Total 1875 ml # Voids 4 # Bowel Movements 7 5 Laboratory Tests 10/27/18 06:25: White Blood Count [Pending], Red Blood Count [Pending], Hemoglobin [Pending], Hematocrit [Pending], Mean Corpuscular Volume [Pending], Mean Corpuscular Hemoglobin [Pending], Mean Corpuscular Hemoglobin Concent [Pending], Red Cell Distribution Width [Pending], Platelet Count [Pending], Mean Platelet Volume [ Pending], Neutrophils (%) (Auto) [Pending], Lymphocytes (%) (Auto) [Pending], Monocytes (%) (Auto) [Pending], Eosinophils (%) (Auto) [Pending], Basophils (%) (Auto) [Pending], Sodium Level [Pending], Potassium Level [Pending], Chloride Level [Pending], Carbon Dioxide Level [Pending], Blood Urea Nitrogen [Pending], Creatinine [Pending], Estimat Glomerular Filtration Rate [Pending], Glucose Level [Pending], Calcium Level [Pending], Phosphorus Level [Pending], Magnesium Level [Pending], Total Bilirubin [Pending], Aspartate Amino Transf (AST/SGOT) [ Pending], Alanine Aminotransferase (ALT/SGPT) [Pending], Alkaline Phosphatase [ Pending], Total Protein [Pending], Albumin [Pending], Globulin [Pending], HIV-1 RNA (PCR) log10 Value [Pending], HIV-1 RNA Ultraquantitative (PCR) [Pending] Height (Feet): 6 Height (Inches): 4.00 Weight (Pounds): 288 Objective General Appearance: normal inspection, well appearing, no apparent distress Head: atraumatic ENT: normal ENT inspection, hearing grossly normal, normal voice Neck: normal inspection, full range of motion, supple, no bony tend Respiratory: normal inspection, lungs clear, normal breath sounds, no respiratory distress, no retraction, no wheezing Cardiovascular #1: regular rate, rhythm, no edema Gastrointestinal: normal inspection, normal bowel sounds, non tender, soft, no guarding, no hernia Genitourinary: no CVA tenderness Musculoskeletal: normal inspection, back normal, normal range of motion Neurologic: normal inspection, alert, responsive, speech normal Psychiatric: normal inspection, judgement/insight normal, mood/affect normal Skin: normal inspection, normal color, no rash Bebo Agustin MD Oct 27, 2018 07:19
[2018-10-27 07:35] LABS: HEMATOCRIT 43.4 % (42.0-52.0); HEMOGLOBIN 14.1 G/DL (14.2-18.0); MEAN CORPUSCULAR VOLUME 85 FL (80-99); PLATELET COUNT 68 K/UL (150-450); RED BLOOD COUNT 5.13 M/UL (4.70-6.10); RED CELL DISTRIBUTION WIDTH 13.5 % (11.6-14.8); WHITE BLOOD COUNT 4.4 K/UL (4.8-10.8)
[2018-10-27 07:57] LABS: ALANINE AMINOTRANSFERASE 63 U/L (12-78); ALBUMIN 2.8 G/DL (3.4-5.0); ALBUMIN/GLOBULIN RATIO 0.5 (1.0-2.7); ALKALINE PHOSPHATASE 66 U/L (46-116); ANION GAP 6 mmol/L (5-15); ASPARTATE AMINO TRANSFERASE 63 U/L (15-37); BILIRUBIN,TOTAL 0.4 MG/DL (0.2-1.0); BLOOD UREA NITROGEN 12 mg/dL (7-18); CALCIUM 8.5 MG/DL (8.5-10.1); CARBON DIOXIDE 25 MMOL/L (21-32); CHLORIDE 106 MMOL/L (98-107); CREATININE 0.8 MG/DL (0.55-1.30); SODIUM 137 MMOL/L (136-145)
[2018-10-27 08:00] VITALS: BP 116/64
[2018-10-27 08:08] LABS: PHOSPHORUS 2.3 MG/DL (2.5-4.9)
[2018-10-27] MEDS: Docusate 100mg cap ORAL SCH ×3 (08:10→18:00)
[2018-10-27] MEDS: Sertraline 50mg tab ORAL SCH (08:10)
[2018-10-27] MEDS: Tamsulosin 0.4mg cap ORAL SCH ×2 (08:10→18:14)
[2018-10-27] MEDS: Metoprolol 25mg tab ORAL SCH ×2 (08:11→21:18)
[2018-10-27] MEDS: D5 1/2NS w/KCl 20mEq 1,000 ML IV SCH (11:44)
[2018-10-27 12:00] VITALS: BP 110/57
--- NOTE | 2018-10-27 12:16 | General Progress Note ---
Assessment/Plan Problem List: (1) UTI (urinary tract infection) ICD Codes: N39.0 - Urinary tract infection, site not specified SNOMED: 69895337 (2) Depressed ICD Codes: F32.9 - Major depressive disorder, single episode, unspecified SNOMED: 08817846 (3) Cirrhosis ICD Codes: K74.60 - Unspecified cirrhosis of liver SNOMED: 67044013 (4) Thrombocytopenia ICD Codes: D69.6 - Thrombocytopenia, unspecified SNOMED: 620307911 (5) Intractable abdominal pain ICD Codes: R10.9 - Unspecified abdominal pain SNOMED: 55477760, 328452243 (6) Lower GI bleed ICD Codes: K92.2 - Gastrointestinal hemorrhage, unspecified SNOMED: 81540767 (7) Psychosis ICD Codes: F29 - Unspecified psychosis not due to a substance or known physiological condition SNOMED: 60111857 (8) History of CVA (cerebrovascular accident) ICD Codes: Z86.73 - Personal history of transient ischemic attack (TIA), and cerebral infarction without residual deficits SNOMED: 014512807 Status: stable, progressing Assessment/Plan ot pt diet abx per id gi/heme f/u cbc bmp am dc if clear Subjective Constitutional: Reports: weakness Allergies: Coded Allergies: ACETAMINOPHEN (Verified Allergy, Unknown, 08/28/18) ASPIRIN (Verified Allergy, Unknown, 08/28/18) KETOROLAC (Verified Allergy, Unknown, 08/28/18) NSAIDS (NON-STEROIDAL ANTI-INFLAMMA (Verified Allergy, Unknown, 09/09/18) All Systems: reviewed and negative except above Subjective calm in bed Objective Last 24 Hour Vital Signs Date Time Temp Pulse Resp B/P (MAP) Pulse Ox O2 Delivery O2 Flow Rate FiO2 10/27/18 09:00 Room Air 10/27/18 08:11 87 116/64 10/27/18 08:00 98.7 87 18 116/64 (81) 100 10/27/18 04:00 98.9 61 20 114/57 (76) 10/27/18 00:00 100.2 72 18 120/53 (75) 10/26/18 22:00 Room Air 10/26/18 20:55 89 123/61 10/26/18 20:00 99.2 82 18 123/61 (81) 93 10/26/18 16:00 98.6 75 18 135/64 (87) 94 10/26/18 13:11 99.0 10/26/18 13:11 99.0 Intake and Output 10/26/18 10/27/18 19:00 07:00 Intake Total 1505 ml 825 ml Output Total 1875 ml Balance -370 ml 825 ml Intake Oral 680 ml IV Total 825 ml 825 ml Output Urine Total 1875 ml # Voids 4 # Bowel Movements 7 5 Laboratory Tests 10/27/18 06:25: White Blood Count 4.4L, Red Blood Count 5.13, Hemoglobin 14.1L, Hematocrit 43.4 , Mean Corpuscular Volume 85, Mean Corpuscular Hemoglobin 27.4, Mean Corpuscular Hemoglobin Concent 32.4, Red Cell Distribution Width 13.5, Platelet Count 68L, Mean Platelet Volume 9.0, Neutrophils (%) (Auto) , Lymphocytes (%) ( Auto) , Monocytes (%) (Auto) , Eosinophils (%) (Auto) , Basophils (%) (Auto) , Differential Total Cells Counted 100, Neutrophils % (Manual) 64, Lymphocytes % ( Manual) 25, Monocytes % (Manual) 10, Eosinophils % (Manual) 1, Basophils % ( Manual) 0, Band Neutrophils 0, Platelet Estimate DecreasedL, Platelet Morphology Normal, Red Blood Cell Morphology Normal, Sodium Level 137, Potassium Level 4.0, Chloride Level 106, Carbon Dioxide Level 25, Anion Gap 6, Blood Urea Nitrogen 12, Creatinine 0.8, Estimat Glomerular Filtration Rate > 60 , Glucose Level 114H, Calcium Level 8.5, Phosphorus Level 2.3L, Magnesium Level 1.9, Total Bilirubin 0.4, Aspartate Amino Transf (AST/SGOT) 63H, Alanine Aminotransferase (ALT/SGPT) 63, Alkaline Phosphatase 66, Total Protein 8.2, Albumin 2.8L, Globulin 5.4, Albumin/Globulin Ratio 0.5L, HIV-1 RNA (PCR) log10 Value [Pending], HIV-1 RNA Ultraquantitative (PCR) [Pending] Height (Feet): 6 Height (Inches): 4.00 Weight (Pounds): 288 General Appearance: lethargic EENT: normal ENT inspection Neck: normal alignment Cardiovascular: normal peripheral pulses, normal rate, regular rhythm Respiratory/Chest: chest wall non-tender, lungs clear, normal breath sounds Abdomen: normal bowel sounds, non tender, soft Extremities: normal inspection Edema: no edema noted Arm (L), no edema noted Arm (R), no edema noted Leg (L), no edema noted Leg (R), no edema noted Pedal (L), no edema noted Pedal (R), no edema noted Generalized Neurologic: motor weakness Skin: normal pigmentation, warm/dry Roberto Georges DO Oct 27, 2018 12:16
--- NOTE | 2018-10-27 12:43 | GI Progress Note ---
Assessment/Plan Problems: (1) Diarrhea ICD Codes: R19.7 - Diarrhea, unspecified SNOMED: 18396663 (2) Psychosis ICD Codes: F29 - Unspecified psychosis not due to a substance or known physiological condition SNOMED: 29593161 (3) Depressed ICD Codes: F32.9 - Major depressive disorder, single episode, unspecified SNOMED: 27391724 (4) Cirrhosis ICD Codes: K74.60 - Unspecified cirrhosis of liver SNOMED: 03595141 (5) Lower GI bleed ICD Codes: K92.2 - Gastrointestinal hemorrhage, unspecified SNOMED: 61020550 Status: stable Status Narrative Discussed with Dr. Ramos. Assessment/Plan colonoscopy cancelled, patient unable to tolerate prep given no anemia and no recurrent bleed, will follow up as an outpatient KUB for abdominal distention >> unremarkable advance diet titrate bowel regime prn transfusion possible history of Hep C cirrhosis, fu labs pain mgmt zofran prn fu labs outpatient GI procedures The patient was seen and examined at bedside and all new and available data was reviewed in the patients chart. I agree with the above findings, impression and plan. (Patient seen earlier today. Signature stamp does not reflect patient encounter time.). - Arthur Ramos MD Subjective Subjective abdominal pain abdominal distention unable to tolerate golytely prep complaining of diarrhea Objective Last 24 Hour Vital Signs Date Time Temp Pulse Resp B/P (MAP) Pulse Ox O2 Delivery O2 Flow Rate FiO2 10/27/18 09:00 Room Air 10/27/18 08:11 87 116/64 10/27/18 08:00 98.7 87 18 116/64 (81) 100 10/27/18 04:00 98.9 61 20 114/57 (76) 10/27/18 00:00 100.2 72 18 120/53 (75) 10/26/18 22:00 Room Air 10/26/18 20:55 89 123/61 10/26/18 20:00 99.2 82 18 123/61 (81) 93 10/26/18 16:00 98.6 75 18 135/64 (87) 94 10/26/18 13:11 99.0 10/26/18 13:11 99.0 Intake and Output 10/26/18 10/27/18 19:00 07:00 Intake Total 1505 ml 825 ml Output Total 1875 ml Balance -370 ml 825 ml Intake Oral 680 ml IV Total 825 ml 825 ml Output Urine Total 1875 ml # Voids 4 # Bowel Movements 7 5 Laboratory Tests Test 10/27/18 06:25 White Blood Count 4.4 K/UL (4.8-10.8) L Red Blood Count 5.13 M/UL (4.70-6.10) Hemoglobin 14.1 G/DL (14.2-18.0) L Hematocrit 43.4 % (42.0-52.0) Mean Corpuscular Volume 85 FL (80-99) Mean Corpuscular Hemoglobin 27.4 PG (27.0-31.0) Mean Corpuscular Hemoglobin Concent 32.4 G/DL (32.0-36.0) Red Cell Distribution Width 13.5 % (11.6-14.8) Platelet Count 68 K/UL (150-450) L Mean Platelet Volume 9.0 FL (6.5-10.1) Neutrophils (%) (Auto) % (45.0-75.0) Lymphocytes (%) (Auto) % (20.0-45.0) Monocytes (%) (Auto) % (1.0-10.0) Eosinophils (%) (Auto) % (0.0-3.0) Basophils (%) (Auto) % (0.0-2.0) Differential Total Cells Counted 100 Neutrophils % (Manual) 64 % (45-75) Lymphocytes % (Manual) 25 % (20-45) Monocytes % (Manual) 10 % (1-10) Eosinophils % (Manual) 1 % (0-3) Basophils % (Manual) 0 % (0-2) Band Neutrophils 0 % (0-8) Platelet Estimate Decreased L Platelet Morphology Normal Red Blood Cell Morphology Normal Sodium Level 137 MMOL/L (136-145) Potassium Level 4.0 MMOL/L (3.5-5.1) Chloride Level 106 MMOL/L (98-107) Carbon Dioxide Level 25 MMOL/L (21-32) Anion Gap 6 mmol/L (5-15) Blood Urea Nitrogen 12 mg/dL (7-18) Creatinine 0.8 MG/DL (0.55-1.30) Estimat Glomerular Filtration Rate > 60 mL/min (>60) Glucose Level 114 MG/DL (74-106) H Calcium Level 8.5 MG/DL (8.5-10.1) Phosphorus Level 2.3 MG/DL (2.5-4.9) L Magnesium Level 1.9 MG/DL (1.8-2.4) Total Bilirubin 0.4 MG/DL (0.2-1.0) Aspartate Amino Transf (AST/SGOT) 63 U/L (15-37) H Alanine Aminotransferase (ALT/SGPT) 63 U/L (12-78) Alkaline Phosphatase 66 U/L (46-116) Total Protein 8.2 G/DL (6.4-8.2) Albumin 2.8 G/DL (3.4-5.0) L Globulin 5.4 g/dL Albumin/Globulin Ratio 0.5 (1.0-2.7) L HIV-1 RNA (PCR) log10 Value Pending HIV-1 RNA Ultraquantitative (PCR) Pending Height (Feet): 6 Height (Inches): 4.00 Weight (Pounds): 288 General Appearance: WD/WN, no apparent distress, alert Cardiovascular: normal rate Respiratory/Chest: normal breath sounds, no respiratory distress Abdominal Exam: normal bowel sounds, non tender, soft Extremities: non-tender Santiago Rouse NP Oct 27, 2018 12:43
--- NOTE | 2018-10-27 13:05 | Pulmonology Progress Note ---
Assessment/Plan Problems: (1) UTI (urinary tract infection) (2) Lower GI bleed (3) History of urethral stent (4) History of CVA (cerebrovascular accident) (5) Psychosis (6) Intractable abdominal pain (7) CAD (coronary artery disease) (8) Nephrolithiasis (9) Cirrhosis Assessment/Plan still c/o pain GI f/u appreciated symptomatic treatment check labs f/u liver enzymes dc planning Subjective ROS Limited/Unobtainable: No Constitutional: Reports: no symptoms HEENT: Repors: no symptoms Respiratory: Reports: no symptoms Allergies: Coded Allergies: ACETAMINOPHEN (Verified Allergy, Unknown, 08/28/18) ASPIRIN (Verified Allergy, Unknown, 08/28/18) KETOROLAC (Verified Allergy, Unknown, 08/28/18) NSAIDS (NON-STEROIDAL ANTI-INFLAMMA (Verified Allergy, Unknown, 09/09/18) Objective Last 24 Hour Vital Signs Date Time Temp Pulse Resp B/P (MAP) Pulse Ox O2 Delivery O2 Flow Rate FiO2 10/27/18 09:00 Room Air 10/27/18 08:11 87 116/64 10/27/18 08:00 98.7 87 18 116/64 (81) 100 10/27/18 04:00 98.9 61 20 114/57 (76) 10/27/18 00:00 100.2 72 18 120/53 (75) 10/26/18 22:00 Room Air 10/26/18 20:55 89 123/61 10/26/18 20:00 99.2 82 18 123/61 (81) 93 10/26/18 16:00 98.6 75 18 135/64 (87) 94 10/26/18 13:11 99.0 10/26/18 13:11 99.0 Intake and Output 10/26/18 10/27/18 19:00 07:00 Intake Total 1505 ml 825 ml Output Total 1875 ml Balance -370 ml 825 ml Intake Oral 680 ml IV Total 825 ml 825 ml Output Urine Total 1875 ml # Voids 4 # Bowel Movements 7 5 Objective General Appearance: WD/WN HEENT: normocephalic Respiratory/Chest: chest wall non-tender, lungs clear, normal breath sounds Cardiovascular: normal peripheral pulses, normal rate Abdomen: normal bowel sounds, soft, non tender Genitourinary: normal external genitalia Extremities: no clubbing Skin: no rash Laboratory Tests 10/27/18 06:25: White Blood Count 4.4L, Red Blood Count 5.13, Hemoglobin 14.1L, Hematocrit 43.4 , Mean Corpuscular Volume 85, Mean Corpuscular Hemoglobin 27.4, Mean Corpuscular Hemoglobin Concent 32.4, Red Cell Distribution Width 13.5, Platelet Count 68L, Mean Platelet Volume 9.0, Neutrophils (%) (Auto) , Lymphocytes (%) ( Auto) , Monocytes (%) (Auto) , Eosinophils (%) (Auto) , Basophils (%) (Auto) , Differential Total Cells Counted 100, Neutrophils % (Manual) 64, Lymphocytes % ( Manual) 25, Monocytes % (Manual) 10, Eosinophils % (Manual) 1, Basophils % ( Manual) 0, Band Neutrophils 0, Platelet Estimate DecreasedL, Platelet Morphology Normal, Red Blood Cell Morphology Normal, Sodium Level 137, Potassium Level 4.0, Chloride Level 106, Carbon Dioxide Level 25, Anion Gap 6, Blood Urea Nitrogen 12, Creatinine 0.8, Estimat Glomerular Filtration Rate > 60 , Glucose Level 114H, Calcium Level 8.5, Phosphorus Level 2.3L, Magnesium Level 1.9, Total Bilirubin 0.4, Aspartate Amino Transf (AST/SGOT) 63H, Alanine Aminotransferase (ALT/SGPT) 63, Alkaline Phosphatase 66, Total Protein 8.2, Albumin 2.8L, Globulin 5.4, Albumin/Globulin Ratio 0.5L, HIV-1 RNA (PCR) log10 Value [Pending], HIV-1 RNA Ultraquantitative (PCR) [Pending] Current Medications Medications (Trade) Dose Ordered Sig/Hugo Route PRN Reason Start Time Stop Time Status Last Admin Dose Admin Al Hydroxide/Mg Hydroxide (Mylanta II) 30 ml Q6H PRN ORAL dyspepsia 10/23/18 14:50 11/22/18 14:49 Aripiprazole (Abilify) 5 mg BEDTIME ORAL 10/23/18 21:00 11/22/18 20:59 10/26/18 20:53 Carisoprodol (Soma) 350 mg THREE TIMES A DAY ORAL 10/25/18 18:00 11/22/18 21:59 10/27/18 08:09 Dextrose (Dextrose 50%) 25 ml Q30M PRN IV Hypoglycemia 10/23/18 14:51 11/22/18 14:50 Dextrose (Dextrose 50%) 50 ml Q30M PRN IV Hypoglycemia 10/23/18 14:51 11/22/18 14:50 Dextrose/ Electrolytes 1,000 ml @ 75 mls/hr [id number] IV 10/24/18 16:00 11/23/18 15:59 10/27/18 11:44 Diphenhydramine HCl (Benadryl) 25 mg Q6H PRN ORAL Itching/Pruritis 10/23/18 14:50 11/22/18 14:49 10/24/18 06:40 Docusate Sodium (Colace) 100 mg TID ORAL 10/25/18 18:00 11/22/18 20:59 10/26/18 08:48 Famotidine (Pepcid I.v.) 20 mg Q12HR IVP 10/23/18 21:00 11/22/18 20:59 10/27/18 08:10 Gabapentin (Neurontin) 600 mg THREE TIMES A DAY ORAL 10/23/18 18:00 11/22/18 17:59 10/27/18 08:08 Lorazepam (Ativan 2mg/ml 1ml) 0.5 mg Q4H PRN IV For Anxiety 10/23/18 14:50 10/30/18 14:49 Magnesium Hydroxide (Mom) 30 ml HSPRN PRN ORAL Constipation 10/23/18 21:00 11/22/18 20:59 Metoprolol Tartrate (Lopressor) 25 mg EVERY 12 HOURS ORAL 10/23/18 21:00 11/22/18 20:59 10/26/18 20:55 Morphine Sulfate (Morphine Sulfate) 1 mg Q4H PRN IVP Mild Pain(1-3) 10/23/18 14:51 10/30/18 14:50 10/24/18 09:57 Morphine Sulfate (Morphine Sulfate) 2 mg Q4H PRN IVP Moderate Pain (Pain Scale 4-6) 10/23/18 14:51 10/30/18 14:50 10/27/18 12:46 Morphine Sulfate (Morphine Sulfate) 4 mg Q4H PRN IVP Severe Pain (Pain Scale 7-10) 10/23/18 14:52 10/30/18 14:51 10/26/18 05:42 Ondansetron HCl (Zofran) 4 mg Q6H PRN IVP Nausea & Vomiting 10/23/18 14:50 11/22/18 14:49 Sertraline HCl (Zoloft) 50 mg DAILY ORAL 10/24/18 09:00 11/23/18 08:59 10/27/18 08:10 Tamsulosin HCl (Flomax) 0.4 mg BID ORAL 10/23/18 18:00 11/22/18 17:59 10/27/18 08:10 Trazodone HCl (Desyrel) 50 mg BEDTIME ORAL 10/23/18 21:00 11/22/18 20:59 10/26/18 20:55 Lexy Christiansen MD Oct 27, 2018 13:05
[2018-10-27 16:00] VITALS: BP 142/76
--- NOTE | 2018-10-27 16:09 | General Surgery Progress Note ---
General Surgery-Progress Note Subjective Symptoms: improved, pain absent, tolerating diet, passing flatus Objective Last 24 Hour Vital Signs Date Time Temp Pulse Resp B/P (MAP) Pulse Ox O2 Delivery O2 Flow Rate FiO2 10/27/18 12:00 98.0 86 18 110/57 (74) 100 10/27/18 09:00 Room Air 10/27/18 08:11 87 116/64 10/27/18 08:00 98.7 87 18 116/64 (81) 100 10/27/18 04:00 98.9 61 20 114/57 (76) 10/27/18 00:00 100.2 72 18 120/53 (75) 10/26/18 22:00 Room Air 10/26/18 20:55 89 123/61 10/26/18 20:00 99.2 82 18 123/61 (81) 93 I&O Intake and Output 10/26/18 10/27/18 19:00 07:00 Intake Total 1505 ml 825 ml Output Total 1875 ml Balance -370 ml 825 ml Intake Oral 680 ml IV Total 825 ml 825 ml Output Urine Total 1875 ml # Voids 4 # Bowel Movements 7 5 Drains: none Cardiovascular: RSR Respiratory: clear Abdomen: soft, flat, non-tender, present bowel sounds Extremities: no cyanosis Laboratory Tests Test 10/27/18 06:25 White Blood Count 4.4 K/UL (4.8-10.8) L Red Blood Count 5.13 M/UL (4.70-6.10) Hemoglobin 14.1 G/DL (14.2-18.0) L Hematocrit 43.4 % (42.0-52.0) Mean Corpuscular Volume 85 FL (80-99) Mean Corpuscular Hemoglobin 27.4 PG (27.0-31.0) Mean Corpuscular Hemoglobin Concent 32.4 G/DL (32.0-36.0) Red Cell Distribution Width 13.5 % (11.6-14.8) Platelet Count 68 K/UL (150-450) L Mean Platelet Volume 9.0 FL (6.5-10.1) Neutrophils (%) (Auto) % (45.0-75.0) Lymphocytes (%) (Auto) % (20.0-45.0) Monocytes (%) (Auto) % (1.0-10.0) Eosinophils (%) (Auto) % (0.0-3.0) Basophils (%) (Auto) % (0.0-2.0) Differential Total Cells Counted 100 Neutrophils % (Manual) 64 % (45-75) Lymphocytes % (Manual) 25 % (20-45) Monocytes % (Manual) 10 % (1-10) Eosinophils % (Manual) 1 % (0-3) Basophils % (Manual) 0 % (0-2) Band Neutrophils 0 % (0-8) Platelet Estimate Decreased L Platelet Morphology Normal Red Blood Cell Morphology Normal Sodium Level 137 MMOL/L (136-145) Potassium Level 4.0 MMOL/L (3.5-5.1) Chloride Level 106 MMOL/L (98-107) Carbon Dioxide Level 25 MMOL/L (21-32) Anion Gap 6 mmol/L (5-15) Blood Urea Nitrogen 12 mg/dL (7-18) Creatinine 0.8 MG/DL (0.55-1.30) Estimat Glomerular Filtration Rate > 60 mL/min (>60) Glucose Level 114 MG/DL (74-106) H Calcium Level 8.5 MG/DL (8.5-10.1) Phosphorus Level 2.3 MG/DL (2.5-4.9) L Magnesium Level 1.9 MG/DL (1.8-2.4) Total Bilirubin 0.4 MG/DL (0.2-1.0) Aspartate Amino Transf (AST/SGOT) 63 U/L (15-37) H Alanine Aminotransferase (ALT/SGPT) 63 U/L (12-78) Alkaline Phosphatase 66 U/L (46-116) Total Protein 8.2 G/DL (6.4-8.2) Albumin 2.8 G/DL (3.4-5.0) L Globulin 5.4 g/dL Albumin/Globulin Ratio 0.5 (1.0-2.7) L HIV-1 RNA (PCR) log10 Value Pending HIV-1 RNA Ultraquantitative (PCR) Pending Plan Problems: (1) Intractable abdominal pain Assessment & Plan: improving US noted CT noted pain resolved -okay for diet -no surgical intervention planned -okay to d/c from surgical standpoint thank you will follow with Rashid Bond Oct 27, 2018 16:09
--- NOTE | 2018-10-27 17:52 | Infectious Diseases Prog Note ---
Assessment/Plan Assessment/Plan Abx: None Assessment: Low grade fever No leukocytosis GIB RLQ pain- 2ry to hepatitis -Abd US: Cholelithiasis with apparent wall thickening measuring 3 - 4 mm. Negative sonographic Cook sign. -CT abd/p : Liver: Fatty and slightly nodular liver. Correlate for cirrhosis. Gallbladder and bile ducts: Cholelithiasis. Elevated LFTs, improving Hx of Hep C,p robable cirrhosis -Hep Serologies and HIV VL p -HIV ab sc neg psychosis HTN prostate surgery laminectomy GERD cholelithiasis duodenal diverticulum constipation BPH MDD rheumatic fever 1990 CVA 2012 with left sided weakness nephrolithiasis renal stent care home resident Plan: -Continue to monitor off abx -f/u cx -Monitor CBC/C MP, temperatures -f/u hep serologies, HIV VL -GI, Sx f/u -CXR Thank you for this consultation. Will continue to follow along with you. Discussed with RN. Subjective Allergies: Coded Allergies: ACETAMINOPHEN (Verified Allergy, Unknown, 08/28/18) ASPIRIN (Verified Allergy, Unknown, 08/28/18) KETOROLAC (Verified Allergy, Unknown, 08/28/18) NSAIDS (NON-STEROIDAL ANTI-INFLAMMA (Verified Allergy, Unknown, 09/09/18) Subjective Tm 100.2 LFTs improved no leukocytosis Objective Vital Signs Last 24 Hour Vital Signs Date Time Temp Pulse Resp B/P (MAP) Pulse Ox O2 Delivery O2 Flow Rate FiO2 10/27/18 16:00 98.0 72 20 142/76 (98) 100 10/27/18 12:00 98.0 86 18 110/57 (74) 100 10/27/18 09:00 Room Air 10/27/18 08:11 87 116/64 10/27/18 08:00 98.7 87 18 116/64 (81) 100 10/27/18 04:00 98.9 61 20 114/57 (76) 10/27/18 00:00 100.2 72 18 120/53 (75) 10/26/18 22:00 Room Air 10/26/18 20:55 89 123/61 10/26/18 20:00 99.2 82 18 123/61 (81) 93 Height (Feet): 6 Height (Inches): 4.00 Weight (Pounds): 288 Objective GENERAL: Calm in bed, oriented x2, slight distress secondary to abdominal pain. CARDIOVASCULAR: No murmur. LUNGS: Distant and clear. ABDOMEN: Bowel sound positive. Slightly tender. No guarding. No rigidity. No rebound. EXTREMITIES: No cyanosis, clubbing, or edema. NEUROLOGIC: The patient moves all extremities, slightly weak. Laboratory Tests Test 10/27/18 06:25 White Blood Count 4.4 K/UL (4.8-10.8) L Red Blood Count 5.13 M/UL (4.70-6.10) Hemoglobin 14.1 G/DL (14.2-18.0) L Hematocrit 43.4 % (42.0-52.0) Mean Corpuscular Volume 85 FL (80-99) Mean Corpuscular Hemoglobin 27.4 PG (27.0-31.0) Mean Corpuscular Hemoglobin Concent 32.4 G/DL (32.0-36.0) Red Cell Distribution Width 13.5 % (11.6-14.8) Platelet Count 68 K/UL (150-450) L Mean Platelet Volume 9.0 FL (6.5-10.1) Neutrophils (%) (Auto) % (45.0-75.0) Lymphocytes (%) (Auto) % (20.0-45.0) Monocytes (%) (Auto) % (1.0-10.0) Eosinophils (%) (Auto) % (0.0-3.0) Basophils (%) (Auto) % (0.0-2.0) Differential Total Cells Counted 100 Neutrophils % (Manual) 64 % (45-75) Lymphocytes % (Manual) 25 % (20-45) Monocytes % (Manual) 10 % (1-10) Eosinophils % (Manual) 1 % (0-3) Basophils % (Manual) 0 % (0-2) Band Neutrophils 0 % (0-8) Platelet Estimate Decreased L Platelet Morphology Normal Red Blood Cell Morphology Normal Sodium Level 137 MMOL/L (136-145) Potassium Level 4.0 MMOL/L (3.5-5.1) Chloride Level 106 MMOL/L (98-107) Carbon Dioxide Level 25 MMOL/L (21-32) Anion Gap 6 mmol/L (5-15) Blood Urea Nitrogen 12 mg/dL (7-18) Creatinine 0.8 MG/DL (0.55-1.30) Estimat Glomerular Filtration Rate > 60 mL/min (>60) Glucose Level 114 MG/DL (74-106) H Calcium Level 8.5 MG/DL (8.5-10.1) Phosphorus Level 2.3 MG/DL (2.5-4.9) L Magnesium Level 1.9 MG/DL (1.8-2.4) Total Bilirubin 0.4 MG/DL (0.2-1.0) Aspartate Amino Transf (AST/SGOT) 63 U/L (15-37) H Alanine Aminotransferase (ALT/SGPT) 63 U/L (12-78) Alkaline Phosphatase 66 U/L (46-116) Total Protein 8.2 G/DL (6.4-8.2) Albumin 2.8 G/DL (3.4-5.0) L Globulin 5.4 g/dL Albumin/Globulin Ratio 0.5 (1.0-2.7) L HIV-1 RNA (PCR) log10 Value Pending HIV-1 RNA Ultraquantitative (PCR) Pending Current Medications Medications (Trade) Dose Ordered Sig/Hugo Route PRN Reason Start Time Stop Time Status Last Admin Dose Admin Al Hydroxide/Mg Hydroxide (Mylanta II) 30 ml Q6H PRN ORAL dyspepsia 10/23/18 14:50 11/22/18 14:49 Aripiprazole (Abilify) 5 mg BEDTIME ORAL 10/23/18 21:00 11/22/18 20:59 10/26/18 20:53 Carisoprodol (Soma) 350 mg THREE TIMES A DAY ORAL 10/25/18 18:00 11/22/18 21:59 10/27/18 13:14 Dextrose (Dextrose 50%) 25 ml Q30M PRN IV Hypoglycemia 10/23/18 14:51 11/22/18 14:50 Dextrose (Dextrose 50%) 50 ml Q30M PRN IV Hypoglycemia 10/23/18 14:51 11/22/18 14:50 Dextrose/ Electrolytes 1,000 ml @ 75 mls/hr [id number] IV 10/24/18 16:00 11/23/18 15:59 10/27/18 11:44 Diphenhydramine HCl (Benadryl) 25 mg Q6H PRN ORAL Itching/Pruritis 10/23/18 14:50 11/22/18 14:49 10/24/18 06:40 Docusate Sodium (Colace) 100 mg TID ORAL 10/25/18 18:00 11/22/18 20:59 10/26/18 08:48 Famotidine (Pepcid I.v.) 20 mg Q12HR IVP 10/23/18 21:00 10/27/18 23:59 10/27/18 08:10 Famotidine (Pepcid) 20 mg Q12HR ORAL 10/28/18 09:00 11/27/18 08:59 Gabapentin (Neurontin) 600 mg THREE TIMES A DAY ORAL 10/23/18 18:00 11/22/18 17:59 10/27/18 13:14 Lorazepam (Ativan 2mg/ml 1ml) 0.5 mg Q4H PRN IV For Anxiety 10/23/18 14:50 10/30/18 14:49 Magnesium Hydroxide (Mom) 30 ml HSPRN PRN ORAL Constipation 10/23/18 21:00 11/22/18 20:59 Metoprolol Tartrate (Lopressor) 25 mg EVERY 12 HOURS ORAL 10/23/18 21:00 11/22/18 20:59 10/26/18 20:55 Morphine Sulfate (Morphine Sulfate) 1 mg Q4H PRN IVP Mild Pain(1-3) 10/23/18 14:51 10/30/18 14:50 10/24/18 09:57 Morphine Sulfate (Morphine Sulfate) 2 mg Q4H PRN IVP Moderate Pain (Pain Scale 4-6) 10/23/18 14:51 10/30/18 14:50 10/27/18 16:56 Morphine Sulfate (Morphine Sulfate) 4 mg Q4H PRN IVP Severe Pain (Pain Scale 7-10) 10/23/18 14:52 10/30/18 14:51 10/26/18 05:42 Ondansetron HCl (Zofran) 4 mg Q6H PRN IVP Nausea & Vomiting 10/23/18 14:50 11/22/18 14:49 Sertraline HCl (Zoloft) 50 mg DAILY ORAL 10/24/18 09:00 11/23/18 08:59 10/27/18 08:10 Tamsulosin HCl (Flomax) 0.4 mg BID ORAL 10/23/18 18:00 11/22/18 17:59 10/27/18 08:10 Trazodone HCl (Desyrel) 50 mg BEDTIME ORAL 10/23/18 21:00 11/22/18 20:59 10/26/18 20:55 Nesha Park M.D. Oct 27, 2018 17:52
[2018-10-27 20:14] VITALS: BP 135/58
[2018-10-27] MEDS: TraZODone 50mg tab ORAL SCH (21:18)
[2018-10-28] VITALS: BP 107/52
[2018-10-28] MEDS: D5 1/2NS w/KCl 20mEq 1,000 ML IV SCH ×3 (01:22→16:25)
[2018-10-28] MEDS: Morphine Sulfate 2mg/ml Inj IVP PRN ×3 (01:23→11:56)
[2018-10-28 04:00] VITALS: BP 120/64
--- NOTE | 2018-10-28 07:00 | General Progress Note ---
Assessment/Plan Assessment/Plan # Thrombocytopenia due to underlying hep C, stable approx 100k --> Cont to monitor and tend plt count for stability/improvement --> Hep panel in past showed hep c. HIV negative --> US abd does not cirrhosis or hsm --> Peripheral smear ordered to evaluate for blasts /schistocytes and none noted --> abx and other meds have been reviewed --> ok for ppx if plt >50k w/ wither heparin or lovenox --> Trend 109k--> 102k--> 77k-->68k # Leukopenia - due to underlying hep C --> Continue to monitor for improvement --> US abd does not show cirrhosis or hepatosplenomegaly --> o/p eradication as per gi # GI bleed with blood stool --> h/h stable, therefore outpatient eval # Abdominal pain --> with blood emesis, outpatient w.u --> surgery was consulted # History of CVA (cerebrovascular accident) # [facility] GREATLY APPRECIATE CONSULTATION. Subjective Constitutional: Denies: no symptoms, chills, diaphoresis, fever, malaise, weakness, other HEENT: Denies: no symptoms, eye pain, blurred vision, tearing, double vision, ear pain, ear discharge, nose pain, nose congestion, throat pain, throat swelling, mouth pain, mouth swelling, other Cardiovascular: Denies: no symptoms, chest pain, edema, irregular heart rate, lightheadedness, palpitations, syncope, other Respiratory: Denies: no symptoms, cough, orthopnea, shortness of breath, SOB with excertion, SOB at rest, sputum, stridor, wheezing, other Gastrointestinal/Abdominal: Denies: no symptoms, abdomen distended, abdominal pain, black stools, tarry stools, blood in stool, constipated, diarrhea, difficulty swallowing, nausea, poor appetite, poor fluid intake, rectal bleeding , vomiting, other Genitourinary: Denies: no symptoms, burning, discharge, frequency, flank pain, hematuria, incontinence, pain, urgency, other Neurologic/Psychiatric: Denies: no symptoms, anxiety, depressed, emotional problems, headache, numbness, paresthesia, pre-existing deficit, seizure, tingling, tremors, weakness, other Endocrine: Denies: no symptoms, excessive sweating, flushing, intolerance to cold, intolerance to heat, increased hunger, increased thirst, increased urine, unexplained weight gain, unexplained weight loss, other Hematologic/Lymphatic: Denies: no symptoms, anemia, easy bleeding, easy bruising, other Allergies: Coded Allergies: ACETAMINOPHEN (Verified Allergy, Unknown, 08/28/18) ASPIRIN (Verified Allergy, Unknown, 08/28/18) KETOROLAC (Verified Allergy, Unknown, 08/28/18) NSAIDS (NON-STEROIDAL ANTI-INFLAMMA (Verified Allergy, Unknown, 09/09/18) Subjective Pt awake and alert. No acute events. Abd distended. VS remain stable. Doesn't want to go back to [facility] aware Objective Last 24 Hour Vital Signs Date Time Temp Pulse Resp B/P (MAP) Pulse Ox O2 Delivery O2 Flow Rate FiO2 10/28/18 06:09 98.8 10/28/18 04:00 98.8 68 20 120/64 (82) 95 10/28/18 00:00 97.0 58 20 107/52 (70) 94 10/27/18 21:18 71 135/58 10/27/18 21:00 Room Air 10/27/18 20:14 99.7 71 18 135/58 (83) 96 10/27/18 16:00 98.0 72 20 142/76 (98) 100 10/27/18 12:00 98.0 86 18 110/57 (74) 100 10/27/18 09:00 Room Air 10/27/18 08:11 87 116/64 10/27/18 08:00 98.7 87 18 116/64 (81) 100 Intake and Output 10/27/18 10/28/18 18:59 06:59 Intake Total 1620 ml 775 ml Output Total 600 ml Balance 1020 ml 775 ml Intake Oral 720 ml IV Total 900 ml 775 ml Output Urine Total 600 ml # Bowel Movements 2 Height (Feet): 6 Height (Inches): 4.00 Weight (Pounds): 288 Objective General Appearance: normal inspection, well appearing, no apparent distress Head: atraumatic ENT: normal ENT inspection, hearing grossly normal, normal voice Neck: normal inspection, full range of motion, supple, no bony tend Respiratory: normal inspection, lungs clear, normal breath sounds, no respiratory distress, no retraction, no wheezing Cardiovascular #1: regular rate, rhythm, no edema Gastrointestinal: normal inspection, normal bowel sounds, non tender, soft, no guarding, no hernia Genitourinary: no CVA tenderness Musculoskeletal: normal inspection, back normal, normal range of motion Neurologic: normal inspection, alert, responsive, speech normal Psychiatric: normal inspection, judgement/insight normal, mood/affect normal Skin: normal inspection, normal color, no rash Bebo Agustin MD Oct 28, 2018 06:59
[2018-10-28 07:41] LABS: HEMATOCRIT 44.5 % (42.0-52.0); HEMOGLOBIN 14.2 G/DL (14.2-18.0); MEAN CORPUSCULAR VOLUME 85 FL (80-99); PLATELET COUNT 79 K/UL (150-450); RED BLOOD COUNT 5.26 M/UL (4.70-6.10); RED CELL DISTRIBUTION WIDTH 13.8 % (11.6-14.8); WHITE BLOOD COUNT 4.4 K/UL (4.8-10.8)
[2018-10-28 07:47] LABS: ANION GAP 8 mmol/L (5-15); BLOOD UREA NITROGEN 14 mg/dL (7-18); CALCIUM 8.6 MG/DL (8.5-10.1); CARBON DIOXIDE 24 MMOL/L (21-32); CHLORIDE 107 MMOL/L (98-107); CREATININE 0.8 MG/DL (0.55-1.30); POTASSIUM 4.1 MMOL/L (3.5-5.1); SODIUM 139 MMOL/L (136-145)
[2018-10-28 08:00] VITALS: BP 127/58
--- NOTE | 2018-10-28 08:47 | Diagnostic Imaging Report ---
Indication: Cough Technique: One view of the chest Comparison: 09/19/2018 Findings: The heart is borderline enlarged. Opacity left lateral lung base is demonstrated on recent CT scan to represent a prominent pericardial fat pad. The lungs and pleural spaces are clear. There is no significant interim change Impression: No acute process Borderline cardiomegaly
[2018-10-28] MEDS: Tamsulosin 0.4mg cap ORAL SCH ×2 (09:27→18:47)
[2018-10-28] MEDS: Metoprolol 25mg tab ORAL SCH ×2 (09:28→20:42)
[2018-10-28] MEDS: Sertraline 50mg tab ORAL SCH (09:28)
[2018-10-28] MEDS: Docusate 100mg cap ORAL SCH ×3 (09:28→18:47)
--- NOTE | 2018-10-28 10:45 | GI Progress Note ---
Assessment/Plan Problems: (1) Diarrhea ICD Codes: R19.7 - Diarrhea, unspecified SNOMED: 08492843 (2) Psychosis ICD Codes: F29 - Unspecified psychosis not due to a substance or known physiological condition SNOMED: 23541271 (3) Depressed ICD Codes: F32.9 - Major depressive disorder, single episode, unspecified SNOMED: 84967705 (4) Cirrhosis ICD Codes: K74.60 - Unspecified cirrhosis of liver SNOMED: 86592983 (5) Lower GI bleed ICD Codes: K92.2 - Gastrointestinal hemorrhage, unspecified SNOMED: 32296610 Status: stable Status Narrative Discussed with Dr. Ramos Assessment/Plan colonoscopy cancelled, patient unable to tolerate prep given no anemia and no recurrent bleed, will follow up as an outpatient KUB for abdominal distention >> unremarkable advance diet titrate bowel regime prn transfusion possible history of Hep C cirrhosis, fu labs pain mgmt zofran prn fu labs outpatient GI procedures The patient was seen and examined at bedside and all new and available data was reviewed in the patients chart. I agree with the above findings, impression and plan. (Patient seen earlier today. Signature stamp does not reflect patient encounter time.). - Arthur Ramos MD Subjective Subjective abdominal pain abdominal distention improved Diarrhea is improved Objective Last 24 Hour Vital Signs Date Time Temp Pulse Resp B/P (MAP) Pulse Ox O2 Delivery O2 Flow Rate FiO2 10/28/18 09:28 67 127/58 10/28/18 08:00 98.3 67 20 127/58 (81) 100 10/28/18 06:09 98.8 10/28/18 04:00 98.8 68 20 120/64 (82) 95 10/28/18 00:00 97.0 58 20 107/52 (70) 94 10/27/18 21:18 71 135/58 10/27/18 21:00 Room Air 10/27/18 20:14 99.7 71 18 135/58 (83) 96 10/27/18 16:00 98.0 72 20 142/76 (98) 100 10/27/18 12:00 98.0 86 18 110/57 (74) 100 Intake and Output 10/27/18 10/28/18 19:00 07:00 Intake Total 1545 ml 850 ml Output Total 600 ml 500 ml Balance 945 ml 350 ml Intake Oral 720 ml IV Total 825 ml 850 ml Output Urine Total 600 ml 500 ml # Bowel Movements 2 Laboratory Tests Test 10/28/18 06:45 White Blood Count 4.4 K/UL (4.8-10.8) L Red Blood Count 5.26 M/UL (4.70-6.10) Hemoglobin 14.2 G/DL (14.2-18.0) Hematocrit 44.5 % (42.0-52.0) Mean Corpuscular Volume 85 FL (80-99) Mean Corpuscular Hemoglobin 27.1 PG (27.0-31.0) Mean Corpuscular Hemoglobin Concent 32.0 G/DL (32.0-36.0) Red Cell Distribution Width 13.8 % (11.6-14.8) Platelet Count 79 K/UL (150-450) L Mean Platelet Volume 9.2 FL (6.5-10.1) Neutrophils (%) (Auto) % (45.0-75.0) Lymphocytes (%) (Auto) % (20.0-45.0) Monocytes (%) (Auto) % (1.0-10.0) Eosinophils (%) (Auto) % (0.0-3.0) Basophils (%) (Auto) % (0.0-2.0) Differential Total Cells Counted 100 Neutrophils % (Manual) 71 % (45-75) Lymphocytes % (Manual) 22 % (20-45) Monocytes % (Manual) 6 % (1-10) Eosinophils % (Manual) 1 % (0-3) Basophils % (Manual) 0 % (0-2) Band Neutrophils 0 % (0-8) Platelet Estimate Decreased L Platelet Morphology Normal Red Blood Cell Morphology Normal Sodium Level 139 MMOL/L (136-145) Potassium Level 4.1 MMOL/L (3.5-5.1) Chloride Level 107 MMOL/L (98-107) Carbon Dioxide Level 24 MMOL/L (21-32) Anion Gap 8 mmol/L (5-15) Blood Urea Nitrogen 14 mg/dL (7-18) Creatinine 0.8 MG/DL (0.55-1.30) Estimat Glomerular Filtration Rate > 60 mL/min (>60) Glucose Level 111 MG/DL (74-106) H Calcium Level 8.6 MG/DL (8.5-10.1) Height (Feet): 6 Height (Inches): 4.00 Weight (Pounds): 288 General Appearance: WD/WN, no apparent distress, alert Cardiovascular: normal rate Respiratory/Chest: normal breath sounds, no respiratory distress Abdominal Exam: normal bowel sounds, non tender, soft Extremities: normal range of motion, non-tender Santiago Rouse NP Oct 28, 2018 10:45
--- NOTE | 2018-10-28 11:21 | Infectious Diseases Prog Note ---
Assessment/Plan Assessment/Plan Abx: None Assessment: Low grade fever, improving -CXR: No acute process. Borderline cardiomegaly No leukocytosis GIB RLQ pain- 2ry to hepatitis -Abd US: Cholelithiasis with apparent wall thickening measuring 3 - 4 mm. Negative sonographic Cook sign. -CT abd/p : Liver: Fatty and slightly nodular liver. Correlate for cirrhosis. Gallbladder and bile ducts: Cholelithiasis. Elevated LFTs, improving Hx of Hep C,p robable cirrhosis -Hep Serologies and HIV VL p -HIV ab sc neg psychosis HTN prostate surgery laminectomy GERD cholelithiasis duodenal diverticulum constipation BPH MDD rheumatic fever 1990 CVA 2012 with left sided weakness nephrolithiasis renal stent [facility] resident Plan: -Continue to monitor off abx -f/u cx -Monitor CBC/C MP, temperatures -f/u hep serologies, HIV VL -GI, Sx f/u Thank you for this consultation. Will continue to follow along with you. Discussed with RN. Subjective Allergies: Coded Allergies: ACETAMINOPHEN (Verified Allergy, Unknown, 08/28/18) ASPIRIN (Verified Allergy, Unknown, 08/28/18) KETOROLAC (Verified Allergy, Unknown, 08/28/18) NSAIDS (NON-STEROIDAL ANTI-INFLAMMA (Verified Allergy, Unknown, 09/09/18) Subjective afebrile im 24hr LFTs improved no leukocytosis hep panel pending Objective Vital Signs Last 24 Hour Vital Signs Date Time Temp Pulse Resp B/P (MAP) Pulse Ox O2 Delivery O2 Flow Rate FiO2 10/28/18 09:28 67 127/58 10/28/18 08:00 98.3 67 20 127/58 (81) 100 10/28/18 06:09 98.8 10/28/18 04:00 98.8 68 20 120/64 (82) 95 10/28/18 00:00 97.0 58 20 107/52 (70) 94 10/27/18 21:18 71 135/58 10/27/18 21:00 Room Air 10/27/18 20:14 99.7 71 18 135/58 (83) 96 10/27/18 16:00 98.0 72 20 142/76 (98) 100 10/27/18 12:00 98.0 86 18 110/57 (74) 100 Height (Feet): 6 Height (Inches): 4.00 Weight (Pounds): 288 Objective GENERAL: Calm in bed, oriented x2, slight distress secondary to abdominal pain. CARDIOVASCULAR: No murmur. LUNGS: Distant and clear. ABDOMEN: Bowel sound positive. Slightly tender. No guarding. No rigidity. No rebound. EXTREMITIES: No cyanosis, clubbing, or edema. NEUROLOGIC: The patient moves all extremities, slightly weak. Laboratory Tests Test 10/28/18 06:45 White Blood Count 4.4 K/UL (4.8-10.8) L Red Blood Count 5.26 M/UL (4.70-6.10) Hemoglobin 14.2 G/DL (14.2-18.0) Hematocrit 44.5 % (42.0-52.0) Mean Corpuscular Volume 85 FL (80-99) Mean Corpuscular Hemoglobin 27.1 PG (27.0-31.0) Mean Corpuscular Hemoglobin Concent 32.0 G/DL (32.0-36.0) Red Cell Distribution Width 13.8 % (11.6-14.8) Platelet Count 79 K/UL (150-450) L Mean Platelet Volume 9.2 FL (6.5-10.1) Neutrophils (%) (Auto) % (45.0-75.0) Lymphocytes (%) (Auto) % (20.0-45.0) Monocytes (%) (Auto) % (1.0-10.0) Eosinophils (%) (Auto) % (0.0-3.0) Basophils (%) (Auto) % (0.0-2.0) Differential Total Cells Counted 100 Neutrophils % (Manual) 71 % (45-75) Lymphocytes % (Manual) 22 % (20-45) Monocytes % (Manual) 6 % (1-10) Eosinophils % (Manual) 1 % (0-3) Basophils % (Manual) 0 % (0-2) Band Neutrophils 0 % (0-8) Platelet Estimate Decreased L Platelet Morphology Normal Red Blood Cell Morphology Normal Sodium Level 139 MMOL/L (136-145) Potassium Level 4.1 MMOL/L (3.5-5.1) Chloride Level 107 MMOL/L (98-107) Carbon Dioxide Level 24 MMOL/L (21-32) Anion Gap 8 mmol/L (5-15) Blood Urea Nitrogen 14 mg/dL (7-18) Creatinine 0.8 MG/DL (0.55-1.30) Estimat Glomerular Filtration Rate > 60 mL/min (>60) Glucose Level 111 MG/DL (74-106) H Calcium Level 8.6 MG/DL (8.5-10.1) Current Medications Medications (Trade) Dose Ordered Sig/Hugo Route PRN Reason Start Time Stop Time Status Last Admin Dose Admin Al Hydroxide/Mg Hydroxide (Mylanta II) 30 ml Q6H PRN ORAL dyspepsia 10/23/18 14:50 11/22/18 14:49 Aripiprazole (Abilify) 5 mg BEDTIME ORAL 10/23/18 21:00 11/22/18 20:59 10/27/18 21:18 Carisoprodol (Soma) 350 mg THREE TIMES A DAY ORAL 10/25/18 18:00 11/22/18 21:59 10/28/18 09:30 Dextrose (Dextrose 50%) 25 ml Q30M PRN IV Hypoglycemia 10/23/18 14:51 11/22/18 14:50 Dextrose (Dextrose 50%) 50 ml Q30M PRN IV Hypoglycemia 10/23/18 14:51 11/22/18 14:50 Dextrose/ Electrolytes 1,000 ml @ 75 mls/hr [id number] IV 10/24/18 16:00 11/23/18 15:59 10/28/18 01:22 Diphenhydramine HCl (Benadryl) 25 mg Q6H PRN ORAL Itching/Pruritis 10/23/18 14:50 11/22/18 14:49 10/24/18 06:40 Docusate Sodium (Colace) 100 mg TID ORAL 10/25/18 18:00 11/22/18 20:59 10/28/18 09:28 Famotidine (Pepcid) 20 mg Q12HR ORAL 10/28/18 09:00 11/27/18 08:59 10/28/18 09:27 Gabapentin (Neurontin) 600 mg THREE TIMES A DAY ORAL 10/23/18 18:00 11/22/18 17:59 10/28/18 09:28 Lorazepam (Ativan 2mg/ml 1ml) 0.5 mg Q4H PRN IV For Anxiety 10/23/18 14:50 10/30/18 14:49 Magnesium Hydroxide (Mom) 30 ml HSPRN PRN ORAL Constipation 10/23/18 21:00 11/22/18 20:59 Metoprolol Tartrate (Lopressor) 25 mg EVERY 12 HOURS ORAL 10/23/18 21:00 11/22/18 20:59 10/28/18 09:28 Morphine Sulfate (Morphine Sulfate) 1 mg Q4H PRN IVP Mild Pain(1-3) 10/23/18 14:51 10/30/18 14:50 10/24/18 09:57 Morphine Sulfate (Morphine Sulfate) 2 mg Q4H PRN IVP Moderate Pain (Pain Scale 4-6) 10/23/18 14:51 10/30/18 14:50 10/28/18 05:37 Morphine Sulfate (Morphine Sulfate) 4 mg Q4H PRN IVP Severe Pain (Pain Scale 7-10) 10/23/18 14:52 10/30/18 14:51 10/26/18 05:42 Ondansetron HCl (Zofran) 4 mg Q6H PRN IVP Nausea & Vomiting 10/23/18 14:50 11/22/18 14:49 Sertraline HCl (Zoloft) 50 mg DAILY ORAL 10/24/18 09:00 11/23/18 08:59 10/28/18 09:28 Tamsulosin HCl (Flomax) 0.4 mg BID ORAL 10/23/18 18:00 11/22/18 17:59 10/28/18 09:27 Trazodone HCl (Desyrel) 50 mg BEDTIME ORAL 10/23/18 21:00 11/22/18 20:59 10/27/18 21:18 Nesha Park M.D. Oct 28, 2018 11:21
[2018-10-28 12:00] VITALS: BP 125/61
--- NOTE | 2018-10-28 12:54 | Pulmonology Progress Note ---
Assessment/Plan Problems: (1) UTI (urinary tract infection) (2) Lower GI bleed (3) History of urethral stent (4) History of CVA (cerebrovascular accident) (5) Psychosis (6) Intractable abdominal pain (7) CAD (coronary artery disease) (8) Nephrolithiasis (9) Cirrhosis Assessment/Plan still c/o pain cxr negative GI f/u appreciated symptomatic treatment check labs f/u liver enzymes monitor off abx Subjective ROS Limited/Unobtainable: No Constitutional: Reports: no symptoms HEENT: Repors: no symptoms Allergies: Coded Allergies: ACETAMINOPHEN (Verified Allergy, Unknown, 08/28/18) ASPIRIN (Verified Allergy, Unknown, 08/28/18) KETOROLAC (Verified Allergy, Unknown, 08/28/18) NSAIDS (NON-STEROIDAL ANTI-INFLAMMA (Verified Allergy, Unknown, 09/09/18) Objective Last 24 Hour Vital Signs Date Time Temp Pulse Resp B/P (MAP) Pulse Ox O2 Delivery O2 Flow Rate FiO2 10/28/18 09:28 67 127/58 10/28/18 08:00 98.3 67 20 127/58 (81) 100 10/28/18 06:09 98.8 10/28/18 04:00 98.8 68 20 120/64 (82) 95 10/28/18 00:00 97.0 58 20 107/52 (70) 94 10/27/18 21:18 71 135/58 10/27/18 21:00 Room Air 10/27/18 20:14 99.7 71 18 135/58 (83) 96 10/27/18 16:00 98.0 72 20 142/76 (98) 100 Intake and Output 10/27/18 10/28/18 19:00 07:00 Intake Total 1545 ml 850 ml Output Total 600 ml 500 ml Balance 945 ml 350 ml Intake Oral 720 ml IV Total 825 ml 850 ml Output Urine Total 600 ml 500 ml # Bowel Movements 2 Objective General Appearance: WD/WN HEENT: normocephalic Respiratory/Chest: chest wall non-tender, lungs clear, normal breath sounds Cardiovascular: normal peripheral pulses, normal rate Abdomen: normal bowel sounds, soft, non tender Genitourinary: normal external genitalia Extremities: no clubbing Skin: no rash Laboratory Tests 10/28/18 06:45: White Blood Count 4.4L, Red Blood Count 5.26, Hemoglobin 14.2, Hematocrit 44.5, Mean Corpuscular Volume 85, Mean Corpuscular Hemoglobin 27.1, Mean Corpuscular Hemoglobin Concent 32.0, Red Cell Distribution Width 13.8, Platelet Count 79L, Mean Platelet Volume 9.2, Neutrophils (%) (Auto) , Lymphocytes (%) (Auto) , Monocytes (%) (Auto) , Eosinophils (%) (Auto) , Basophils (%) (Auto) , Differential Total Cells Counted 100, Neutrophils % (Manual) 71, Lymphocytes % ( Manual) 22, Monocytes % (Manual) 6, Eosinophils % (Manual) 1, Basophils % ( Manual) 0, Band Neutrophils 0, Platelet Estimate DecreasedL, Platelet Morphology Normal, Red Blood Cell Morphology Normal, Sodium Level 139, Potassium Level 4.1, Chloride Level 107, Carbon Dioxide Level 24, Anion Gap 8, Blood Urea Nitrogen 14, Creatinine 0.8, Estimat Glomerular Filtration Rate > 60 , Glucose Level 111H, Calcium Level 8.6 Current Medications Medications (Trade) Dose Ordered Sig/Hugo Route PRN Reason Start Time Stop Time Status Last Admin Dose Admin Al Hydroxide/Mg Hydroxide (Mylanta II) 30 ml Q6H PRN ORAL dyspepsia 10/23/18 14:50 11/22/18 14:49 Aripiprazole (Abilify) 5 mg BEDTIME ORAL 10/23/18 21:00 11/22/18 20:59 10/27/18 21:18 Carisoprodol (Soma) 350 mg THREE TIMES A DAY ORAL 10/25/18 18:00 11/22/18 21:59 10/28/18 09:30 Dextrose (Dextrose 50%) 25 ml Q30M PRN IV Hypoglycemia 10/23/18 14:51 11/22/18 14:50 Dextrose (Dextrose 50%) 50 ml Q30M PRN IV Hypoglycemia 10/23/18 14:51 11/22/18 14:50 Dextrose/ Electrolytes 1,000 ml @ 75 mls/hr [id number] IV 10/24/18 16:00 11/23/18 15:59 10/28/18 01:22 Diphenhydramine HCl (Benadryl) 25 mg Q6H PRN ORAL Itching/Pruritis 10/23/18 14:50 11/22/18 14:49 10/24/18 06:40 Docusate Sodium (Colace) 100 mg TID ORAL 10/25/18 18:00 11/22/18 20:59 10/28/18 09:28 Famotidine (Pepcid) 20 mg Q12HR ORAL 10/28/18 09:00 11/27/18 08:59 10/28/18 09:27 Gabapentin (Neurontin) 600 mg THREE TIMES A DAY ORAL 10/23/18 18:00 11/22/18 17:59 10/28/18 09:28 Lorazepam (Ativan 2mg/ml 1ml) 0.5 mg Q4H PRN IV For Anxiety 10/23/18 14:50 10/30/18 14:49 Magnesium Hydroxide (Mom) 30 ml HSPRN PRN ORAL Constipation 10/23/18 21:00 11/22/18 20:59 Metoprolol Tartrate (Lopressor) 25 mg EVERY 12 HOURS ORAL 10/23/18 21:00 11/22/18 20:59 10/28/18 09:28 Morphine Sulfate (Morphine Sulfate) 1 mg Q4H PRN IVP Mild Pain(1-3) 10/23/18 14:51 10/30/18 14:50 10/28/18 11:56 Morphine Sulfate (Morphine Sulfate) 2 mg Q4H PRN IVP Moderate Pain (Pain Scale 4-6) 10/23/18 14:51 10/30/18 14:50 10/28/18 05:37 Morphine Sulfate (Morphine Sulfate) 4 mg Q4H PRN IVP Severe Pain (Pain Scale 7-10) 10/23/18 14:52 10/30/18 14:51 10/26/18 05:42 Ondansetron HCl (Zofran) 4 mg Q6H PRN IVP Nausea & Vomiting 10/23/18 14:50 11/22/18 14:49 Sertraline HCl (Zoloft) 50 mg DAILY ORAL 10/24/18 09:00 11/23/18 08:59 10/28/18 09:28 Tamsulosin HCl (Flomax) 0.4 mg BID ORAL 10/23/18 18:00 11/22/18 17:59 10/28/18 09:27 Trazodone HCl (Desyrel) 50 mg BEDTIME ORAL 10/23/18 21:00 11/22/18 20:59 10/27/18 21:18 Lexy Christiansen MD Oct 28, 2018 12:54
--- NOTE | 2018-10-28 13:19 | General Progress Note ---
Assessment/Plan Problem List: (1) UTI (urinary tract infection) ICD Codes: N39.0 - Urinary tract infection, site not specified SNOMED: 96426817 (2) Depressed ICD Codes: F32.9 - Major depressive disorder, single episode, unspecified SNOMED: 60512764 (3) Cirrhosis ICD Codes: K74.60 - Unspecified cirrhosis of liver SNOMED: 39860404 (4) Thrombocytopenia ICD Codes: D69.6 - Thrombocytopenia, unspecified SNOMED: 346289885 (5) Intractable abdominal pain ICD Codes: R10.9 - Unspecified abdominal pain SNOMED: 47247522, 206613946 (6) Lower GI bleed ICD Codes: K92.2 - Gastrointestinal hemorrhage, unspecified SNOMED: 38540019 (7) Psychosis ICD Codes: F29 - Unspecified psychosis not due to a substance or known physiological condition SNOMED: 85154257 (8) History of CVA (cerebrovascular accident) ICD Codes: Z86.73 - Personal history of transient ischemic attack (TIA), and cerebral infarction without residual deficits SNOMED: 224347479 Status: stable, progressing Assessment/Plan ot pt diet abx per id gi/heme f/u cbc bmp am dc if clear Subjective Constitutional: Reports: weakness Allergies: Coded Allergies: ACETAMINOPHEN (Verified Allergy, Unknown, 08/28/18) ASPIRIN (Verified Allergy, Unknown, 08/28/18) KETOROLAC (Verified Allergy, Unknown, 08/28/18) NSAIDS (NON-STEROIDAL ANTI-INFLAMMA (Verified Allergy, Unknown, 09/09/18) All Systems: reviewed and negative except above Subjective calm in bed Objective Last 24 Hour Vital Signs Date Time Temp Pulse Resp B/P (MAP) Pulse Ox O2 Delivery O2 Flow Rate FiO2 10/28/18 09:28 67 127/58 10/28/18 09:00 Room Air 10/28/18 08:00 98.3 67 20 127/58 (81) 100 10/28/18 06:09 98.8 10/28/18 04:00 98.8 68 20 120/64 (82) 95 10/28/18 00:00 97.0 58 20 107/52 (70) 94 10/27/18 21:18 71 135/58 10/27/18 21:00 Room Air 10/27/18 20:14 99.7 71 18 135/58 (83) 96 10/27/18 16:00 98.0 72 20 142/76 (98) 100 Intake and Output 10/27/18 10/28/18 19:00 07:00 Intake Total 1545 ml 850 ml Output Total 600 ml 500 ml Balance 945 ml 350 ml Intake Oral 720 ml IV Total 825 ml 850 ml Output Urine Total 600 ml 500 ml # Bowel Movements 2 Laboratory Tests 10/28/18 06:45: White Blood Count 4.4L, Red Blood Count 5.26, Hemoglobin 14.2, Hematocrit 44.5, Mean Corpuscular Volume 85, Mean Corpuscular Hemoglobin 27.1, Mean Corpuscular Hemoglobin Concent 32.0, Red Cell Distribution Width 13.8, Platelet Count 79L, Mean Platelet Volume 9.2, Neutrophils (%) (Auto) , Lymphocytes (%) (Auto) , Monocytes (%) (Auto) , Eosinophils (%) (Auto) , Basophils (%) (Auto) , Differential Total Cells Counted 100, Neutrophils % (Manual) 71, Lymphocytes % ( Manual) 22, Monocytes % (Manual) 6, Eosinophils % (Manual) 1, Basophils % ( Manual) 0, Band Neutrophils 0, Platelet Estimate DecreasedL, Platelet Morphology Normal, Red Blood Cell Morphology Normal, Sodium Level 139, Potassium Level 4.1, Chloride Level 107, Carbon Dioxide Level 24, Anion Gap 8, Blood Urea Nitrogen 14, Creatinine 0.8, Estimat Glomerular Filtration Rate > 60 , Glucose Level 111H, Calcium Level 8.6 Height (Feet): 6 Height (Inches): 4.00 Weight (Pounds): 288 General Appearance: lethargic EENT: normal ENT inspection Neck: normal alignment Cardiovascular: normal peripheral pulses, normal rate, regular rhythm Respiratory/Chest: chest wall non-tender, lungs clear, normal breath sounds Abdomen: normal bowel sounds, non tender, soft Extremities: normal inspection Edema: no edema noted Arm (L), no edema noted Arm (R), no edema noted Leg (L), no edema noted Leg (R), no edema noted Pedal (L), no edema noted Pedal (R), no edema noted Generalized Neurologic: motor weakness Skin: normal pigmentation, warm/dry Roberto Georges DO Oct 28, 2018 13:19
[2018-10-28 16:00] VITALS: BP 118/61
[2018-10-28] MEDS: Morphine Sulfate 4mg/ml Inj (IV/IM USE ONLY) IVP PRN ×2 (16:16→20:42)
--- NOTE | 2018-10-28 16:50 | General Surgery Progress Note ---
General Surgery-Progress Note Subjective Symptoms: improved Additional Comments doing well. no acute events. Objective Last 24 Hour Vital Signs Date Time Temp Pulse Resp B/P (MAP) Pulse Ox O2 Delivery O2 Flow Rate FiO2 10/28/18 09:28 67 127/58 10/28/18 09:00 Room Air 10/28/18 08:00 98.3 67 20 127/58 (81) 100 10/28/18 06:09 98.8 10/28/18 04:00 98.8 68 20 120/64 (82) 95 10/28/18 00:00 97.0 58 20 107/52 (70) 94 10/27/18 21:18 71 135/58 10/27/18 21:00 Room Air 10/27/18 20:14 99.7 71 18 135/58 (83) 96 I&O Intake and Output 10/27/18 10/28/18 19:00 07:00 Intake Total 1545 ml 850 ml Output Total 600 ml 500 ml Balance 945 ml 350 ml Intake Oral 720 ml IV Total 825 ml 850 ml Output Urine Total 600 ml 500 ml # Bowel Movements 2 Drains: none Cardiovascular: RSR Respiratory: clear Abdomen: soft, flat, non-tender, present bowel sounds Extremities: no tenderness, no cyanosis Laboratory Tests Test 10/28/18 06:45 White Blood Count 4.4 K/UL (4.8-10.8) L Red Blood Count 5.26 M/UL (4.70-6.10) Hemoglobin 14.2 G/DL (14.2-18.0) Hematocrit 44.5 % (42.0-52.0) Mean Corpuscular Volume 85 FL (80-99) Mean Corpuscular Hemoglobin 27.1 PG (27.0-31.0) Mean Corpuscular Hemoglobin Concent 32.0 G/DL (32.0-36.0) Red Cell Distribution Width 13.8 % (11.6-14.8) Platelet Count 79 K/UL (150-450) L Mean Platelet Volume 9.2 FL (6.5-10.1) Neutrophils (%) (Auto) % (45.0-75.0) Lymphocytes (%) (Auto) % (20.0-45.0) Monocytes (%) (Auto) % (1.0-10.0) Eosinophils (%) (Auto) % (0.0-3.0) Basophils (%) (Auto) % (0.0-2.0) Differential Total Cells Counted 100 Neutrophils % (Manual) 71 % (45-75) Lymphocytes % (Manual) 22 % (20-45) Monocytes % (Manual) 6 % (1-10) Eosinophils % (Manual) 1 % (0-3) Basophils % (Manual) 0 % (0-2) Band Neutrophils 0 % (0-8) Platelet Estimate Decreased L Platelet Morphology Normal Red Blood Cell Morphology Normal Sodium Level 139 MMOL/L (136-145) Potassium Level 4.1 MMOL/L (3.5-5.1) Chloride Level 107 MMOL/L (98-107) Carbon Dioxide Level 24 MMOL/L (21-32) Anion Gap 8 mmol/L (5-15) Blood Urea Nitrogen 14 mg/dL (7-18) Creatinine 0.8 MG/DL (0.55-1.30) Estimat Glomerular Filtration Rate > 60 mL/min (>60) Glucose Level 111 MG/DL (74-106) H Calcium Level 8.6 MG/DL (8.5-10.1) Plan Problems: (1) Intractable abdominal pain Assessment & Plan: improving US noted CT noted pain resolved -okay for diet -no surgical intervention planned -okay to d/c from surgical standpoint thank you will follow with Rashid Bond Oct 28, 2018 16:50
[2018-10-28 20:00] VITALS: BP 124/68
[2018-10-28] MEDS: TraZODone 50mg tab ORAL SCH (20:41)
[2018-10-29] VITALS: BP 126/64
[2018-10-29] MEDS: Morphine Sulfate 4mg/ml Inj (IV/IM USE ONLY) IVP PRN ×4 (01:22→17:29)
--- NOTE | 2018-10-29 02:00 | Progress Note ---
DATE: 10/28/2018 NOTE: POOR AUDIO SUBJECTIVE: This is a 52-year-old male patient with flank pain and GI pain, but he has extreme mood lability, most of this is declined below baseline secondary to stress of his medical illness. So, his attending has requested daily psychiatric consultation. MENTAL STATUS EXAMINATION: This is a 52-year-old male. Appearance is disheveled. Attitude, irritable and agitated. Affect, guarded and restricted. Intellect, poor. Mood, depressed and anxious. Motor activity, psychomotor agitation. Attention span is poor. Orientation x2. Speech is pressured. Thought process, disorganized and illogical. Thought content, auditory hallucinations and paranoid delusions. DIAGNOSES: Major depressive disorder with psychotic features, rule out paranoid schizophrenia. PLAN: . Chart reviewed and discussed with staff. Seen and assessed at the bedside. . Provided 20 minutes of cognitive behavioral therapy to help this patient identify his automatic negative thoughts and convert those negative thoughts to more positive thinking to reduce depression, anxiety, suicidality, and also help him have a more adaptive behavioral pattern. Amy Benites M.D. DR: YONY JOB#: [id number] CC:
[2018-10-29 04:00] VITALS: BP 124/68
[2018-10-29 06:45] LABS: HEMATOCRIT 42.8 % (42.0-52.0); HEMOGLOBIN 13.8 G/DL (14.2-18.0); MEAN CORPUSCULAR VOLUME 85 FL (80-99); PLATELET COUNT 80 K/UL (150-450); RED BLOOD COUNT 5.04 M/UL (4.70-6.10); RED CELL DISTRIBUTION WIDTH 13.8 % (11.6-14.8); WHITE BLOOD COUNT 4.7 K/UL (4.8-10.8)
[2018-10-29 06:58] LABS: ANION GAP 8 mmol/L (5-15); BLOOD UREA NITROGEN 11 mg/dL (7-18); CALCIUM 8.5 MG/DL (8.5-10.1); CARBON DIOXIDE 23 MMOL/L (21-32); CHLORIDE 106 MMOL/L (98-107); CREATININE 0.8 MG/DL (0.55-1.30); POTASSIUM 3.8 MMOL/L (3.5-5.1); SODIUM 137 MMOL/L (136-145)
[2018-10-29 08:00] VITALS: BP 132/69
[2018-10-29] MEDS: Docusate 100mg cap ORAL SCH ×3 (09:04→17:28)
[2018-10-29] MEDS: Tamsulosin 0.4mg cap ORAL SCH ×2 (09:04→17:28)
[2018-10-29] MEDS: Sertraline 50mg tab ORAL SCH (09:07)
[2018-10-29] MEDS: Metoprolol 25mg tab ORAL SCH ×2 (09:09→20:26)
[2018-10-29] MEDS: D5 1/2NS w/KCl 20mEq 1,000 ML IV SCH (09:10)
--- NOTE | 2018-10-29 11:14 | General Progress Note ---
Assessment/Plan Problem List: (1) UTI (urinary tract infection) ICD Codes: N39.0 - Urinary tract infection, site not specified SNOMED: 15145799 (2) Depressed ICD Codes: F32.9 - Major depressive disorder, single episode, unspecified SNOMED: 99162112 (3) Cirrhosis ICD Codes: K74.60 - Unspecified cirrhosis of liver SNOMED: 99394049 (4) Thrombocytopenia ICD Codes: D69.6 - Thrombocytopenia, unspecified SNOMED: 037271812 (5) Intractable abdominal pain ICD Codes: R10.9 - Unspecified abdominal pain SNOMED: 60139483, 383016093 (6) Lower GI bleed ICD Codes: K92.2 - Gastrointestinal hemorrhage, unspecified SNOMED: 01284111 (7) Psychosis ICD Codes: F29 - Unspecified psychosis not due to a substance or known physiological condition SNOMED: 23799411 (8) History of CVA (cerebrovascular accident) ICD Codes: Z86.73 - Personal history of transient ischemic attack (TIA), and cerebral infarction without residual deficits SNOMED: 399195741 Status: stable, progressing Assessment/Plan ot pt diet abx per id gi/heme f/u cbc bmp am dc if clear Subjective Constitutional: Reports: weakness Allergies: Coded Allergies: ACETAMINOPHEN (Verified Allergy, Unknown, 08/28/18) ASPIRIN (Verified Allergy, Unknown, 08/28/18) KETOROLAC (Verified Allergy, Unknown, 08/28/18) NSAIDS (NON-STEROIDAL ANTI-INFLAMMA (Verified Allergy, Unknown, 09/09/18) All Systems: reviewed and negative except above Subjective calm in bed Objective Last 24 Hour Vital Signs Date Time Temp Pulse Resp B/P (MAP) Pulse Ox O2 Delivery O2 Flow Rate FiO2 10/29/18 09:09 79 132/69 10/29/18 08:00 98.1 79 20 132/69 (90) 10/29/18 04:00 97.2 79 19 124/68 (86) 94 10/29/18 00:00 97.1 84 20 126/64 (84) 94 10/28/18 21:00 Room Air 10/28/18 20:42 71 124/68 10/28/18 20:00 98.2 71 20 124/68 (86) 95 10/28/18 16:00 97.7 68 20 118/61 (80) 97 10/28/18 12:00 97.9 64 20 125/61 (82) 96 Intake and Output 10/28/18 10/29/18 19:00 07:00 Intake Total 1545 ml 495 ml Output Total 650 ml 650 ml Balance 895 ml -155 ml Intake Oral 720 ml 120 ml IV Total 825 ml 375 ml Output Urine Total 650 ml 650 ml # Bowel Movements 1 Laboratory Tests 10/29/18 06:00: White Blood Count 4.7L, Red Blood Count 5.04, Hemoglobin 13.8L, Hematocrit 42.8 , Mean Corpuscular Volume 85, Mean Corpuscular Hemoglobin 27.5, Mean Corpuscular Hemoglobin Concent 32.4, Red Cell Distribution Width 13.8, Platelet Count 80L, Mean Platelet Volume 9.6, Neutrophils (%) (Auto) , Lymphocytes (%) ( Auto) , Monocytes (%) (Auto) , Eosinophils (%) (Auto) , Basophils (%) (Auto) , Differential Total Cells Counted 100, Neutrophils % (Manual) 63, Lymphocytes % ( Manual) 23, Monocytes % (Manual) 11H, Eosinophils % (Manual) 3, Basophils % ( Manual) 0, Band Neutrophils 0, Platelet Estimate DecreasedL, Platelet Morphology Normal, Red Blood Cell Morphology Normal, Microcytosis , Sodium Level 137, Potassium Level 3.8, Chloride Level 106, Carbon Dioxide Level 23, Anion Gap 8, Blood Urea Nitrogen 11, Creatinine 0.8, Estimat Glomerular Filtration Rate > 60, Glucose Level 119H, Calcium Level 8.5 Height (Feet): 6 Height (Inches): 4.00 Weight (Pounds): 288 General Appearance: lethargic EENT: normal ENT inspection Neck: normal alignment Cardiovascular: normal peripheral pulses, normal rate, regular rhythm Respiratory/Chest: chest wall non-tender, lungs clear, normal breath sounds Abdomen: normal bowel sounds, non tender, soft Extremities: normal inspection Edema: no edema noted Arm (L), no edema noted Arm (R), no edema noted Leg (L), no edema noted Leg (R), no edema noted Pedal (L), no edema noted Pedal (R), no edema noted Generalized Neurologic: motor weakness Skin: normal pigmentation, warm/dry Roberto Georges DO Oct 29, 2018 11:14
--- NOTE | 2018-10-29 11:42 | GI Progress Note ---
Assessment/Plan Problems: (1) Diarrhea ICD Codes: R19.7 - Diarrhea, unspecified SNOMED: 36065184 (2) Psychosis ICD Codes: F29 - Unspecified psychosis not due to a substance or known physiological condition SNOMED: 29351424 (3) Depressed ICD Codes: F32.9 - Major depressive disorder, single episode, unspecified SNOMED: 34555791 (4) Cirrhosis ICD Codes: K74.60 - Unspecified cirrhosis of liver SNOMED: 75322363 (5) Lower GI bleed ICD Codes: K92.2 - Gastrointestinal hemorrhage, unspecified SNOMED: 91138081 Status: stable Status Narrative Discussed with Dr. Ramos. Assessment/Plan colonoscopy cancelled, patient unable to tolerate prep given no anemia and no recurrent bleed, will follow up as an outpatient KUB for abdominal distention >> unremarkable advance diet titrate bowel regime prn transfusion possible history of Hep C cirrhosis, fu labs pain mgmt zofran prn fu labs outpatient GI procedures The patient was seen and examined at bedside and all new and available data was reviewed in the patients chart. I agree with the above findings, impression and plan. (Patient seen earlier today. Signature stamp does not reflect patient encounter time.). - Arthur Ramos MD Subjective Subjective abdominal pain abdominal distention improved Diarrhea is improved Objective Last 24 Hour Vital Signs Date Time Temp Pulse Resp B/P (MAP) Pulse Ox O2 Delivery O2 Flow Rate FiO2 10/29/18 09:09 79 132/69 10/29/18 08:00 98.1 79 20 132/69 (90) 10/29/18 04:00 97.2 79 19 124/68 (86) 94 10/29/18 00:00 97.1 84 20 126/64 (84) 94 10/28/18 21:00 Room Air 10/28/18 20:42 71 124/68 10/28/18 20:00 98.2 71 20 124/68 (86) 95 10/28/18 16:00 97.7 68 20 118/61 (80) 97 10/28/18 12:00 97.9 64 20 125/61 (82) 96 Intake and Output 10/28/18 10/29/18 19:00 07:00 Intake Total 1545 ml 495 ml Output Total 650 ml 650 ml Balance 895 ml -155 ml Intake Oral 720 ml 120 ml IV Total 825 ml 375 ml Output Urine Total 650 ml 650 ml # Bowel Movements 1 Laboratory Tests Test 10/29/18 06:00 White Blood Count 4.7 K/UL (4.8-10.8) L Red Blood Count 5.04 M/UL (4.70-6.10) Hemoglobin 13.8 G/DL (14.2-18.0) L Hematocrit 42.8 % (42.0-52.0) Mean Corpuscular Volume 85 FL (80-99) Mean Corpuscular Hemoglobin 27.5 PG (27.0-31.0) Mean Corpuscular Hemoglobin Concent 32.4 G/DL (32.0-36.0) Red Cell Distribution Width 13.8 % (11.6-14.8) Platelet Count 80 K/UL (150-450) L Mean Platelet Volume 9.6 FL (6.5-10.1) Neutrophils (%) (Auto) % (45.0-75.0) Lymphocytes (%) (Auto) % (20.0-45.0) Monocytes (%) (Auto) % (1.0-10.0) Eosinophils (%) (Auto) % (0.0-3.0) Basophils (%) (Auto) % (0.0-2.0) Differential Total Cells Counted 100 Neutrophils % (Manual) 63 % (45-75) Lymphocytes % (Manual) 23 % (20-45) Monocytes % (Manual) 11 % (1-10) H Eosinophils % (Manual) 3 % (0-3) Basophils % (Manual) 0 % (0-2) Band Neutrophils 0 % (0-8) Platelet Estimate Decreased L Platelet Morphology Normal Red Blood Cell Morphology Normal Microcytosis Sodium Level 137 MMOL/L (136-145) Potassium Level 3.8 MMOL/L (3.5-5.1) Chloride Level 106 MMOL/L (98-107) Carbon Dioxide Level 23 MMOL/L (21-32) Anion Gap 8 mmol/L (5-15) Blood Urea Nitrogen 11 mg/dL (7-18) Creatinine 0.8 MG/DL (0.55-1.30) Estimat Glomerular Filtration Rate > 60 mL/min (>60) Glucose Level 119 MG/DL (74-106) H Calcium Level 8.5 MG/DL (8.5-10.1) Height (Feet): 6 Height (Inches): 4.00 Weight (Pounds): 288 General Appearance: WD/WN, no apparent distress, alert Cardiovascular: normal rate Respiratory/Chest: normal breath sounds, no respiratory distress Abdominal Exam: normal bowel sounds, non tender, soft Extremities: normal range of motion, non-tender Santiago Rouse NP Oct 29, 2018 11:41
[2018-10-29 12:00] VITALS: BP 133/59
--- NOTE | 2018-10-29 12:34 | Infectious Diseases Prog Note ---
Assessment/Plan Assessment/Plan Abx: None Assessment: Low grade fever, improving -CXR: No acute process. Borderline cardiomegaly No leukocytosis GIB RLQ pain- 2ry to hepatitis -Abd US: Cholelithiasis with apparent wall thickening measuring 3 - 4 mm. Negative sonographic Cook sign. -CT abd/p : Liver: Fatty and slightly nodular liver. Correlate for cirrhosis. Gallbladder and bile ducts: Cholelithiasis. Elevated LFTs, improving Hx of Hep C,p robable cirrhosis -Hep Serologies and HIV VL p -HIV ab sc neg psychosis HTN prostate surgery laminectomy GERD cholelithiasis duodenal diverticulum constipation BPH MDD rheumatic fever 1990 CVA 2012 with left sided weakness nephrolithiasis renal stent [facility] resident Plan: -Continue to monitor off abx -f/u cx -Monitor CBC/C MP, temperatures -f/u hep serologies, HIV VL -GI, Sx f/u Thank you for this consultation. Will continue to follow along with you. Discussed with RN. Subjective Allergies: Coded Allergies: ACETAMINOPHEN (Verified Allergy, Unknown, 08/28/18) ASPIRIN (Verified Allergy, Unknown, 08/28/18) KETOROLAC (Verified Allergy, Unknown, 08/28/18) NSAIDS (NON-STEROIDAL ANTI-INFLAMMA (Verified Allergy, Unknown, 09/09/18) Subjective afebrile >48hr no leukocytosis hep panel pending Objective Vital Signs Last 24 Hour Vital Signs Date Time Temp Pulse Resp B/P (MAP) Pulse Ox O2 Delivery O2 Flow Rate FiO2 10/29/18 09:09 79 132/69 10/29/18 08:00 98.1 79 20 132/69 (90) 10/29/18 04:00 97.2 79 19 124/68 (86) 94 10/29/18 00:00 97.1 84 20 126/64 (84) 94 10/28/18 21:00 Room Air 10/28/18 20:42 71 124/68 10/28/18 20:00 98.2 71 20 124/68 (86) 95 10/28/18 16:00 97.7 68 20 118/61 (80) 97 Height (Feet): 6 Height (Inches): 4.00 Weight (Pounds): 288 Objective GENERAL: Calm in bed, oriented x2, slight distress secondary to abdominal pain. CARDIOVASCULAR: No murmur. LUNGS: Distant and clear. ABDOMEN: Bowel sound positive. Slightly tender. No guarding. No rigidity. No rebound. EXTREMITIES: No cyanosis, clubbing, or edema. NEUROLOGIC: The patient moves all extremities, slightly weak. Laboratory Tests Test 10/29/18 06:00 White Blood Count 4.7 K/UL (4.8-10.8) L Red Blood Count 5.04 M/UL (4.70-6.10) Hemoglobin 13.8 G/DL (14.2-18.0) L Hematocrit 42.8 % (42.0-52.0) Mean Corpuscular Volume 85 FL (80-99) Mean Corpuscular Hemoglobin 27.5 PG (27.0-31.0) Mean Corpuscular Hemoglobin Concent 32.4 G/DL (32.0-36.0) Red Cell Distribution Width 13.8 % (11.6-14.8) Platelet Count 80 K/UL (150-450) L Mean Platelet Volume 9.6 FL (6.5-10.1) Neutrophils (%) (Auto) % (45.0-75.0) Lymphocytes (%) (Auto) % (20.0-45.0) Monocytes (%) (Auto) % (1.0-10.0) Eosinophils (%) (Auto) % (0.0-3.0) Basophils (%) (Auto) % (0.0-2.0) Differential Total Cells Counted 100 Neutrophils % (Manual) 63 % (45-75) Lymphocytes % (Manual) 23 % (20-45) Monocytes % (Manual) 11 % (1-10) H Eosinophils % (Manual) 3 % (0-3) Basophils % (Manual) 0 % (0-2) Band Neutrophils 0 % (0-8) Platelet Estimate Decreased L Platelet Morphology Normal Red Blood Cell Morphology Normal Microcytosis Sodium Level 137 MMOL/L (136-145) Potassium Level 3.8 MMOL/L (3.5-5.1) Chloride Level 106 MMOL/L (98-107) Carbon Dioxide Level 23 MMOL/L (21-32) Anion Gap 8 mmol/L (5-15) Blood Urea Nitrogen 11 mg/dL (7-18) Creatinine 0.8 MG/DL (0.55-1.30) Estimat Glomerular Filtration Rate > 60 mL/min (>60) Glucose Level 119 MG/DL (74-106) H Calcium Level 8.5 MG/DL (8.5-10.1) Current Medications Medications (Trade) Dose Ordered Sig/Hugo Route PRN Reason Start Time Stop Time Status Last Admin Dose Admin Al Hydroxide/Mg Hydroxide (Mylanta II) 30 ml Q6H PRN ORAL dyspepsia 10/23/18 14:50 11/22/18 14:49 Aripiprazole (Abilify) 5 mg BEDTIME ORAL 10/23/18 21:00 11/22/18 20:59 10/28/18 20:41 Carisoprodol (Soma) 350 mg THREE TIMES A DAY ORAL 10/25/18 18:00 11/22/18 21:59 10/29/18 09:06 Dextrose (Dextrose 50%) 25 ml Q30M PRN IV Hypoglycemia 10/23/18 14:51 11/22/18 14:50 Dextrose (Dextrose 50%) 50 ml Q30M PRN IV Hypoglycemia 10/23/18 14:51 11/22/18 14:50 Dextrose/ Electrolytes 1,000 ml @ 75 mls/hr [id number] IV 10/24/18 16:00 11/23/18 15:59 10/29/18 09:10 Diphenhydramine HCl (Benadryl) 25 mg Q6H PRN ORAL Itching/Pruritis 10/23/18 14:50 11/22/18 14:49 10/24/18 06:40 Docusate Sodium (Colace) 100 mg TID ORAL 10/25/18 18:00 11/22/18 20:59 10/29/18 09:04 Famotidine (Pepcid) 20 mg Q12HR ORAL 10/28/18 09:00 11/27/18 08:59 10/29/18 09:07 Gabapentin (Neurontin) 600 mg THREE TIMES A DAY ORAL 10/23/18 18:00 11/22/18 17:59 10/29/18 09:07 Lorazepam (Ativan 2mg/ml 1ml) 0.5 mg Q4H PRN IV For Anxiety 10/23/18 14:50 10/30/18 14:49 Magnesium Hydroxide (Mom) 30 ml HSPRN PRN ORAL Constipation 10/23/18 21:00 11/22/18 20:59 Metoprolol Tartrate (Lopressor) 25 mg EVERY 12 HOURS ORAL 10/23/18 21:00 11/22/18 20:59 10/29/18 09:09 Morphine Sulfate (Morphine Sulfate) 1 mg Q4H PRN IVP Mild Pain(1-3) 10/23/18 14:51 10/30/18 14:50 10/28/18 11:56 Morphine Sulfate (Morphine Sulfate) 2 mg Q4H PRN IVP Moderate Pain (Pain Scale 4-6) 10/23/18 14:51 10/30/18 14:50 10/28/18 05:37 Morphine Sulfate (Morphine Sulfate) 4 mg Q4H PRN IVP Severe Pain (Pain Scale 7-10) 10/23/18 14:52 10/30/18 14:51 10/29/18 11:25 Ondansetron HCl (Zofran) 4 mg Q6H PRN IVP Nausea & Vomiting 10/23/18 14:50 11/22/18 14:49 Sertraline HCl (Zoloft) 50 mg DAILY ORAL 10/24/18 09:00 11/23/18 08:59 10/29/18 09:07 Tamsulosin HCl (Flomax) 0.4 mg BID ORAL 10/23/18 18:00 11/22/18 17:59 10/29/18 09:04 Trazodone HCl (Desyrel) 50 mg BEDTIME ORAL 10/23/18 21:00 11/22/18 20:59 10/28/18 20:41 Nesha Park M.D. Oct 29, 2018 12:34
--- NOTE | 2018-10-29 13:11 | General Surgery Progress Note ---
General Surgery-Progress Note Subjective Symptoms: improved, tolerating diet, passing flatus Objective Last 24 Hour Vital Signs Date Time Temp Pulse Resp B/P (MAP) Pulse Ox O2 Delivery O2 Flow Rate FiO2 10/29/18 09:09 79 132/69 10/29/18 09:00 Room Air 10/29/18 08:00 98.1 79 20 132/69 (90) 10/29/18 04:00 97.2 79 19 124/68 (86) 94 10/29/18 00:00 97.1 84 20 126/64 (84) 94 10/28/18 21:00 Room Air 10/28/18 20:42 71 124/68 10/28/18 20:00 98.2 71 20 124/68 (86) 95 10/28/18 16:00 97.7 68 20 118/61 (80) 97 I&O Intake and Output 10/28/18 10/29/18 19:00 07:00 Intake Total 1545 ml 495 ml Output Total 650 ml 650 ml Balance 895 ml -155 ml Intake Oral 720 ml 120 ml IV Total 825 ml 375 ml Output Urine Total 650 ml 650 ml # Bowel Movements 1 Drains: none Cardiovascular: RSR Respiratory: clear Abdomen: soft, flat, non-tender, present bowel sounds Extremities: no edema, no tenderness, no cyanosis Laboratory Tests Test 10/29/18 06:00 White Blood Count 4.7 K/UL (4.8-10.8) L Red Blood Count 5.04 M/UL (4.70-6.10) Hemoglobin 13.8 G/DL (14.2-18.0) L Hematocrit 42.8 % (42.0-52.0) Mean Corpuscular Volume 85 FL (80-99) Mean Corpuscular Hemoglobin 27.5 PG (27.0-31.0) Mean Corpuscular Hemoglobin Concent 32.4 G/DL (32.0-36.0) Red Cell Distribution Width 13.8 % (11.6-14.8) Platelet Count 80 K/UL (150-450) L Mean Platelet Volume 9.6 FL (6.5-10.1) Neutrophils (%) (Auto) % (45.0-75.0) Lymphocytes (%) (Auto) % (20.0-45.0) Monocytes (%) (Auto) % (1.0-10.0) Eosinophils (%) (Auto) % (0.0-3.0) Basophils (%) (Auto) % (0.0-2.0) Differential Total Cells Counted 100 Neutrophils % (Manual) 63 % (45-75) Lymphocytes % (Manual) 23 % (20-45) Monocytes % (Manual) 11 % (1-10) H Eosinophils % (Manual) 3 % (0-3) Basophils % (Manual) 0 % (0-2) Band Neutrophils 0 % (0-8) Platelet Estimate Decreased L Platelet Morphology Normal Red Blood Cell Morphology Normal Microcytosis Sodium Level 137 MMOL/L (136-145) Potassium Level 3.8 MMOL/L (3.5-5.1) Chloride Level 106 MMOL/L (98-107) Carbon Dioxide Level 23 MMOL/L (21-32) Anion Gap 8 mmol/L (5-15) Blood Urea Nitrogen 11 mg/dL (7-18) Creatinine 0.8 MG/DL (0.55-1.30) Estimat Glomerular Filtration Rate > 60 mL/min (>60) Glucose Level 119 MG/DL (74-106) H Calcium Level 8.5 MG/DL (8.5-10.1) Plan Problems: (1) Intractable abdominal pain Assessment & Plan: improving US noted CT noted pain resolved -okay for diet -no surgical intervention planned -okay to d/c from surgical standpoint thank you will follow with Rashid Bond Oct 29, 2018 13:10
--- NOTE | 2018-10-29 14:12 | General Progress Note ---
Assessment/Plan Status: stable Assessment/Plan # Thrombocytopenia due to underlying hep C, stable approx 100k --> Cont to monitor and tend plt count for stability/improvement --> Hep panel in past showed hep c. HIV negative --> US abd does not cirrhosis or hsm --> Peripheral smear ordered to evaluate for blasts /schistocytes and none noted --> abx and other meds have been reviewed --> ok for ppx if plt >50k w/ wither heparin or lovenox --> Trend 109k--> 102k--> 77k-->68k # Leukopenia - due to underlying hep C --> Continue to monitor for improvement --> US abd does not show cirrhosis or hepatosplenomegaly --> o/p eradication as per gi # GI bleed with blood stool --> h/h stable, therefore outpatient eval # Abdominal pain --> Pain has improved --> with blood emesis, outpatient w/u --> surgery was consulted, no surgery intervention planned. # History of CVA (cerebrovascular accident) # Gallstone GREATLY APPRECIATE CONSULTATION. Subjective Date patient seen: Oct 29, 2018 Hematologic/Lymphatic: Reports: anemia Allergies: Coded Allergies: ACETAMINOPHEN (Verified Allergy, Unknown, 08/28/18) ASPIRIN (Verified Allergy, Unknown, 08/28/18) KETOROLAC (Verified Allergy, Unknown, 08/28/18) NSAIDS (NON-STEROIDAL ANTI-INFLAMMA (Verified Allergy, Unknown, 09/09/18) All Systems: reviewed and negative except above Subjective Pt awake and alert. No acute events. No abd pain. Objective Last 24 Hour Vital Signs Date Time Temp Pulse Resp B/P (MAP) Pulse Ox O2 Delivery O2 Flow Rate FiO2 10/29/18 09:09 79 132/69 10/29/18 09:00 Room Air 10/29/18 08:00 98.1 79 20 132/69 (90) 10/29/18 04:00 97.2 79 19 124/68 (86) 94 10/29/18 00:00 97.1 84 20 126/64 (84) 94 10/28/18 21:00 Room Air 10/28/18 20:42 71 124/68 10/28/18 20:00 98.2 71 20 124/68 (86) 95 10/28/18 16:00 97.7 68 20 118/61 (80) 97 Intake and Output 10/28/18 10/29/18 19:00 07:00 Intake Total 1545 ml 495 ml Output Total 650 ml 650 ml Balance 895 ml -155 ml Intake Oral 720 ml 120 ml IV Total 825 ml 375 ml Output Urine Total 650 ml 650 ml # Bowel Movements 1 Laboratory Tests 10/29/18 06:00: White Blood Count 4.7L, Red Blood Count 5.04, Hemoglobin 13.8L, Hematocrit 42.8 , Mean Corpuscular Volume 85, Mean Corpuscular Hemoglobin 27.5, Mean Corpuscular Hemoglobin Concent 32.4, Red Cell Distribution Width 13.8, Platelet Count 80L, Mean Platelet Volume 9.6, Neutrophils (%) (Auto) , Lymphocytes (%) ( Auto) , Monocytes (%) (Auto) , Eosinophils (%) (Auto) , Basophils (%) (Auto) , Differential Total Cells Counted 100, Neutrophils % (Manual) 63, Lymphocytes % ( Manual) 23, Monocytes % (Manual) 11H, Eosinophils % (Manual) 3, Basophils % ( Manual) 0, Band Neutrophils 0, Platelet Estimate DecreasedL, Platelet Morphology Normal, Red Blood Cell Morphology Normal, Microcytosis , Sodium Level 137, Potassium Level 3.8, Chloride Level 106, Carbon Dioxide Level 23, Anion Gap 8, Blood Urea Nitrogen 11, Creatinine 0.8, Estimat Glomerular Filtration Rate > 60, Glucose Level 119H, Calcium Level 8.5 Height (Feet): 6 Height (Inches): 4.00 Weight (Pounds): 288 Objective General Appearance: normal inspection, well appearing, no apparent distress Head: atraumatic ENT: normal ENT inspection, hearing grossly normal, normal voice Neck: normal inspection, full range of motion, supple, no bony tend Respiratory: normal inspection, lungs clear, normal breath sounds, no respiratory distress, no retraction, no wheezing Cardiovascular #1: regular rate, rhythm, no edema Gastrointestinal: normal inspection, normal bowel sounds, non tender, soft, no guarding, no hernia Genitourinary: no CVA tenderness Musculoskeletal: normal inspection, back normal, normal range of motion Neurologic: normal inspection, alert, responsive, speech normal Psychiatric: normal inspection, judgement/insight normal, mood/affect normal Skin: normal inspection, normal color, no rash Bebo Agustin MD Oct 29, 2018 14:12
--- NOTE | 2018-10-29 15:44 | Pulmonology Progress Note ---
Assessment/Plan Problems: (1) UTI (urinary tract infection) (2) Lower GI bleed (3) History of urethral stent (4) History of CVA (cerebrovascular accident) (5) Psychosis (6) Intractable abdominal pain (7) CAD (coronary artery disease) (8) Nephrolithiasis (9) Cirrhosis Assessment/Plan pain is better controlled cxr negative GI f/u appreciated symptomatic treatment check labs f/u liver enzymes monitor off abx dc planning Subjective ROS Limited/Unobtainable: No Constitutional: Reports: no symptoms HEENT: Repors: no symptoms Respiratory: Reports: no symptoms Allergies: Coded Allergies: ACETAMINOPHEN (Verified Allergy, Unknown, 08/28/18) ASPIRIN (Verified Allergy, Unknown, 08/28/18) KETOROLAC (Verified Allergy, Unknown, 08/28/18) NSAIDS (NON-STEROIDAL ANTI-INFLAMMA (Verified Allergy, Unknown, 09/09/18) Objective Last 24 Hour Vital Signs Date Time Temp Pulse Resp B/P (MAP) Pulse Ox O2 Delivery O2 Flow Rate FiO2 10/29/18 12:00 98.0 78 20 133/59 (83) 95 10/29/18 09:09 79 132/69 10/29/18 09:00 Room Air 10/29/18 08:00 98.1 79 20 132/69 (90) 10/29/18 04:00 97.2 79 19 124/68 (86) 94 10/29/18 00:00 97.1 84 20 126/64 (84) 94 10/28/18 21:00 Room Air 10/28/18 20:42 71 124/68 10/28/18 20:00 98.2 71 20 124/68 (86) 95 10/28/18 16:00 97.7 68 20 118/61 (80) 97 Intake and Output 10/28/18 10/29/18 19:00 07:00 Intake Total 1545 ml 495 ml Output Total 650 ml 650 ml Balance 895 ml -155 ml Intake Oral 720 ml 120 ml IV Total 825 ml 375 ml Output Urine Total 650 ml 650 ml # Bowel Movements 1 Objective General Appearance: WD/WN HEENT: normocephalic Respiratory/Chest: chest wall non-tender, lungs clear, normal breath sounds Cardiovascular: normal peripheral pulses, normal rate Abdomen: normal bowel sounds, soft, non tender Genitourinary: normal external genitalia Extremities: no clubbing Skin: no rash Laboratory Tests 10/29/18 06:00: White Blood Count 4.7L, Red Blood Count 5.04, Hemoglobin 13.8L, Hematocrit 42.8 , Mean Corpuscular Volume 85, Mean Corpuscular Hemoglobin 27.5, Mean Corpuscular Hemoglobin Concent 32.4, Red Cell Distribution Width 13.8, Platelet Count 80L, Mean Platelet Volume 9.6, Neutrophils (%) (Auto) , Lymphocytes (%) ( Auto) , Monocytes (%) (Auto) , Eosinophils (%) (Auto) , Basophils (%) (Auto) , Differential Total Cells Counted 100, Neutrophils % (Manual) 63, Lymphocytes % ( Manual) 23, Monocytes % (Manual) 11H, Eosinophils % (Manual) 3, Basophils % ( Manual) 0, Band Neutrophils 0, Platelet Estimate DecreasedL, Platelet Morphology Normal, Red Blood Cell Morphology Normal, Microcytosis , Sodium Level 137, Potassium Level 3.8, Chloride Level 106, Carbon Dioxide Level 23, Anion Gap 8, Blood Urea Nitrogen 11, Creatinine 0.8, Estimat Glomerular Filtration Rate > 60, Glucose Level 119H, Calcium Level 8.5 Current Medications Medications (Trade) Dose Ordered Sig/Hugo Route PRN Reason Start Time Stop Time Status Last Admin Dose Admin Al Hydroxide/Mg Hydroxide (Mylanta II) 30 ml Q6H PRN ORAL dyspepsia 10/23/18 14:50 11/22/18 14:49 Aripiprazole (Abilify) 5 mg BEDTIME ORAL 10/23/18 21:00 11/22/18 20:59 10/28/18 20:41 Carisoprodol (Soma) 350 mg THREE TIMES A DAY ORAL 10/25/18 18:00 11/22/18 21:59 10/29/18 14:54 Dextrose (Dextrose 50%) 25 ml Q30M PRN IV Hypoglycemia 10/23/18 14:51 11/22/18 14:50 Dextrose (Dextrose 50%) 50 ml Q30M PRN IV Hypoglycemia 10/23/18 14:51 11/22/18 14:50 Dextrose/ Electrolytes 1,000 ml @ 75 mls/hr [id number] IV 10/24/18 16:00 11/23/18 15:59 10/29/18 09:10 Diphenhydramine HCl (Benadryl) 25 mg Q6H PRN ORAL Itching/Pruritis 10/23/18 14:50 11/22/18 14:49 10/24/18 06:40 Docusate Sodium (Colace) 100 mg TID ORAL 10/25/18 18:00 11/22/18 20:59 10/29/18 09:04 Famotidine (Pepcid) 20 mg Q12HR ORAL 10/28/18 09:00 11/27/18 08:59 10/29/18 09:07 Gabapentin (Neurontin) 600 mg THREE TIMES A DAY ORAL 10/23/18 18:00 11/22/18 17:59 10/29/18 14:22 Lorazepam (Ativan 2mg/ml 1ml) 0.5 mg Q4H PRN IV For Anxiety 10/23/18 14:50 10/30/18 14:49 Magnesium Hydroxide (Mom) 30 ml HSPRN PRN ORAL Constipation 10/23/18 21:00 11/22/18 20:59 Metoprolol Tartrate (Lopressor) 25 mg EVERY 12 HOURS ORAL 10/23/18 21:00 11/22/18 20:59 10/29/18 09:09 Morphine Sulfate (Morphine Sulfate) 1 mg Q4H PRN IVP Mild Pain(1-3) 10/23/18 14:51 10/30/18 14:50 10/28/18 11:56 Morphine Sulfate (Morphine Sulfate) 2 mg Q4H PRN IVP Moderate Pain (Pain Scale 4-6) 10/23/18 14:51 10/30/18 14:50 10/28/18 05:37 Morphine Sulfate (Morphine Sulfate) 4 mg Q4H PRN IVP Severe Pain (Pain Scale 7-10) 10/23/18 14:52 10/30/18 14:51 10/29/18 11:25 Ondansetron HCl (Zofran) 4 mg Q6H PRN IVP Nausea & Vomiting 10/23/18 14:50 11/22/18 14:49 Sertraline HCl (Zoloft) 50 mg DAILY ORAL 10/24/18 09:00 11/23/18 08:59 10/29/18 09:07 Tamsulosin HCl (Flomax) 0.4 mg BID ORAL 10/23/18 18:00 11/22/18 17:59 10/29/18 09:04 Trazodone HCl (Desyrel) 50 mg BEDTIME ORAL 10/23/18 21:00 11/22/18 20:59 10/28/18 20:41 Lexy Christiansen MD Oct 29, 2018 15:44
[2018-10-29 16:00] VITALS: BP 122/68
[2018-10-29 20:00] VITALS: BP 124/60
[2018-10-29] MEDS: TraZODone 50mg tab ORAL SCH (20:25)
[2018-10-30] VITALS: BP 126/100
[2018-10-30] MEDS: Morphine Sulfate 4mg/ml Inj (IV/IM USE ONLY) IVP PRN ×2 (01:52→05:57)
--- NOTE | 2018-10-30 02:15 | Progress Note ---
DATE: 10/29/2018 NOTE: POOR AUDIO PSYCHOTHERAPY CONSULTATION PROGRESS NOTE TREATING ATTENDING PHYSICIAN: Roberto Georges D.O. SUBJECTIVE: This patient is a 52-year-old male patient. The patient has had a diagnosis of major depressive disorder with psychotic features. This patient continues to remain aggressive and anxious. . Appearance is disheveled. Attitude irritable once he was returned back home. Intellect poor. Frustration is high, agitation today mostly on addressing . MENTAL STATUS EXAMINATION: The patient is alert and oriented to person and place. Mood is anxious. Affect is blunted. Thought process is disorganized. Thought content, poor attention and concentration. Poor insight, judgment, and impulse control. DIAGNOSES: Major depressive disorder with psychotic features. Today, I assessed this patient . PLAN: Provided the patient with supportive psychotherapy, we discussed and anxiety. provided the patient with reality orientation . Oriented to the person, place, time, and situation. Provided the patient with cognitive behavioral therapy assessing the patient's anxiety, assessing the patient's agitation, and redirecting his negative thoughts agitation, irritability . Continue with behavioral management. . Clinician has reviewed the patient's chart. Discussed the treatment with the treatment team. Dayna Kitchen PsyD. DR: FLORIN JOB#: [id number] CC:
[2018-10-30 04:00] VITALS: BP 111/66
[2018-10-30] MEDS: D5 1/2NS w/KCl 20mEq 1,000 ML IV SCH ×2 (05:20→14:57)
--- NOTE | 2018-10-30 07:05 | Pulmonology Progress Note ---
Assessment/Plan Assessment/Plan ASSESSMENT Low GI bleeding intractable abdominal pain -resolving cirrhosis hx of CVA with L sided hemiparesis nephrolithiasis Hx of Hep C thrombocytopenia ( due to liver disease) MDD with psychotic features elevated LFT PLAN OF CARE [facility] floor abd US and CT A/P noted GI follows colonoscopy cancelled/pt unable to tolerate prep, given no anemia and no recurrent bleeding, recommended outpt procedure trend LFT pain management a/emetic prn symptomatic treatment GI prophylaxis monitor diet tolerance per surgery no surgical interventions required off abx, ID follows BP management with BB, hep panel pending, HIV test nonreactive psych follows, psych meds optimized as per psych DNR/DNI status case discussed and evaluated by supervising physician Subjective Allergies: Coded Allergies: ACETAMINOPHEN (Verified Allergy, Unknown, 08/28/18) ASPIRIN (Verified Allergy, Unknown, 08/28/18) KETOROLAC (Verified Allergy, Unknown, 08/28/18) NSAIDS (NON-STEROIDAL ANTI-INFLAMMA (Verified Allergy, Unknown, 09/09/18) Subjective no leukocytosis, no fevers intermittent RLQ pain, controlled with meds Objective Last 24 Hour Vital Signs Date Time Temp Pulse Resp B/P (MAP) Pulse Ox O2 Delivery O2 Flow Rate FiO2 10/30/18 04:00 98.2 59 20 111/66 (81) 95 10/30/18 00:00 97.4 64 20 126/100 (109) 95 10/29/18 21:00 Room Air 10/29/18 20:26 79 124/60 10/29/18 20:00 98.0 79 20 124/60 (81) 94 10/29/18 16:00 98.2 86 16 122/68 (86) 98 10/29/18 12:00 98.0 78 20 133/59 (83) 95 10/29/18 09:09 79 132/69 10/29/18 09:00 Room Air 10/29/18 08:00 98.1 79 20 132/69 (90) Intake and Output 10/29/18 10/30/18 18:59 06:59 Intake Total 1245 ml Output Total 1100 ml Balance 145 ml Intake Oral 720 ml IV Total 525 ml Output Urine Total 1100 ml # Bowel Movements 1 General Appearance: no acute distress, other - awake, alert, oriented obese male HEENT: normocephalic, atraumatic, anicteric Respiratory/Chest: lungs clear - with moderate air exchange Cardiovascular: normal rate - distant heart sounds Abdomen: normal bowel sounds, other - abdomne soft, obese, RLQ tenderness, no rebound, no guarding Extremities: no edema, pedal pulses normal Neurologic/Psychiatric: alert, other - L side hemiparesis Laboratory Tests 10/30/18 05:55: White Blood Count [Pending], Red Blood Count [Pending], Hemoglobin [Pending], Hematocrit [Pending], Mean Corpuscular Volume [Pending], Mean Corpuscular Hemoglobin [Pending], Mean Corpuscular Hemoglobin Concent [Pending], Red Cell Distribution Width [Pending], Platelet Count [Pending], Mean Platelet Volume [ Pending], Neutrophils (%) (Auto) [Pending], Lymphocytes (%) (Auto) [Pending], Monocytes (%) (Auto) [Pending], Eosinophils (%) (Auto) [Pending], Basophils (%) (Auto) [Pending], Sodium Level [Pending], Potassium Level [Pending], Chloride Level [Pending], Carbon Dioxide Level [Pending], Blood Urea Nitrogen [Pending], Creatinine [Pending], Estimat Glomerular Filtration Rate [Pending], Glucose Level [Pending], Calcium Level [Pending], Total Bilirubin [Pending], Aspartate Amino Transf (AST/SGOT) [Pending], Alanine Aminotransferase (ALT/SGPT) [Pending] , Alkaline Phosphatase [Pending], Total Protein [Pending], Albumin [Pending], Globulin [Pending] Current Medications Medications (Trade) Dose Ordered Sig/Hugo Route PRN Reason Start Time Stop Time Status Last Admin Dose Admin Al Hydroxide/Mg Hydroxide (Mylanta II) 30 ml Q6H PRN ORAL dyspepsia 10/23/18 14:50 11/22/18 14:49 Aripiprazole (Abilify) 5 mg BEDTIME ORAL 10/23/18 21:00 11/22/18 20:59 10/29/18 20:25 Carisoprodol (Soma) 350 mg THREE TIMES A DAY ORAL 10/25/18 18:00 11/22/18 21:59 10/29/18 19:02 Dextrose (Dextrose 50%) 25 ml Q30M PRN IV Hypoglycemia 10/23/18 14:51 11/22/18 14:50 Dextrose (Dextrose 50%) 50 ml Q30M PRN IV Hypoglycemia 10/23/18 14:51 11/22/18 14:50 Dextrose/ Electrolytes 1,000 ml @ 75 mls/hr [id number] IV 10/24/18 16:00 11/23/18 15:59 10/29/18 09:10 Diphenhydramine HCl (Benadryl) 25 mg Q6H PRN ORAL Itching/Pruritis 10/23/18 14:50 11/22/18 14:49 10/24/18 06:40 Docusate Sodium (Colace) 100 mg TID ORAL 10/25/18 18:00 11/22/18 20:59 10/29/18 09:04 Famotidine (Pepcid) 20 mg Q12HR ORAL 10/28/18 09:00 11/27/18 08:59 10/29/18 20:25 Gabapentin (Neurontin) 600 mg THREE TIMES A DAY ORAL 10/23/18 18:00 11/22/18 17:59 10/29/18 19:01 Lorazepam (Ativan 2mg/ml 1ml) 0.5 mg Q4H PRN IV For Anxiety 10/23/18 14:50 10/30/18 14:49 Magnesium Hydroxide (Mom) 30 ml HSPRN PRN ORAL Constipation 10/23/18 21:00 11/22/18 20:59 Metoprolol Tartrate (Lopressor) 25 mg EVERY 12 HOURS ORAL 10/23/18 21:00 11/22/18 20:59 10/29/18 20:26 Morphine Sulfate (Morphine Sulfate) 1 mg Q4H PRN IVP Mild Pain(1-3) 10/23/18 14:51 10/30/18 14:50 10/28/18 11:56 Morphine Sulfate (Morphine Sulfate) 2 mg Q4H PRN IVP Moderate Pain (Pain Scale 4-6) 10/23/18 14:51 10/30/18 14:50 10/28/18 05:37 Morphine Sulfate (Morphine Sulfate) 4 mg Q4H PRN IVP Severe Pain (Pain Scale 7-10) 10/23/18 14:52 10/30/18 14:51 10/30/18 05:57 Ondansetron HCl (Zofran) 4 mg Q6H PRN IVP Nausea & Vomiting 10/23/18 14:50 11/22/18 14:49 Sertraline HCl (Zoloft) 50 mg DAILY ORAL 10/24/18 09:00 11/23/18 08:59 10/29/18 09:07 Tamsulosin HCl (Flomax) 0.4 mg BID ORAL 10/23/18 18:00 11/22/18 17:59 10/29/18 17:28 Trazodone HCl (Desyrel) 50 mg BEDTIME ORAL 10/23/18 21:00 11/22/18 20:59 10/29/18 20:25 Sharlene Chicas NP Oct 30, 2018 07:05
[2018-10-30 08:00] VITALS: BP 115/68
[2018-10-30 08:03] LABS: ALANINE AMINOTRANSFERASE 92 U/L (12-78); ALBUMIN 2.8 G/DL (3.4-5.0); ALBUMIN/GLOBULIN RATIO 0.5 (1.0-2.7); ALKALINE PHOSPHATASE 75 U/L (46-116); ANION GAP 8 mmol/L (5-15); ASPARTATE AMINO TRANSFERASE 89 U/L (15-37); BILIRUBIN,TOTAL 0.4 MG/DL (0.2-1.0); BLOOD UREA NITROGEN 14 mg/dL (7-18); CALCIUM 8.8 MG/DL (8.5-10.1); CARBON DIOXIDE 26 MMOL/L (21-32); CHLORIDE 105 MMOL/L (98-107); CREATININE 0.9 MG/DL (0.55-1.30); POTASSIUM 3.7 MMOL/L (3.5-5.1); SODIUM 139 MMOL/L (136-145)
--- NOTE | 2018-10-30 08:45 | Infectious Diseases Prog Note ---
Assessment/Plan Assessment/Plan Low grade fever, improving -CXR: No acute process. Borderline cardiomegaly No leukocytosis GIB RLQ pain- 2ry to hepatitis -Abd US: Cholelithiasis with apparent wall thickening measuring 3 - 4 mm. Negative sonographic Cook sign. -CT abd/p : Liver: Fatty and slightly nodular liver. Correlate for cirrhosis. Gallbladder and bile ducts: Cholelithiasis. Elevated LFTs, improving Hx of Hep C,p robable cirrhosis -Hep Serologies and HIV VL p -HIV ab sc neg psychosis HTN prostate surgery laminectomy GERD cholelithiasis duodenal diverticulum constipation BPH MDD rheumatic fever 1990 CVA 2012 with left sided weakness nephrolithiasis renal stent longterm resident Plan: -Continue to monitor off abx as clinically stable -f/u cx -Monitor CBC/C MP, temperatures -f/u hep serologies, HIV VL -GI, Sx f/u Thank you for this consultation. Will continue to follow along with you. Discussed with RN. Subjective Allergies: Coded Allergies: ACETAMINOPHEN (Verified Allergy, Unknown, 08/28/18) ASPIRIN (Verified Allergy, Unknown, 08/28/18) KETOROLAC (Verified Allergy, Unknown, 08/28/18) NSAIDS (NON-STEROIDAL ANTI-INFLAMMA (Verified Allergy, Unknown, 09/09/18) Subjective Patient doing well off abx Afebrile No leukocytosis Objective Vital Signs Last 24 Hour Vital Signs Date Time Temp Pulse Resp B/P (MAP) Pulse Ox O2 Delivery O2 Flow Rate FiO2 10/30/18 08:00 98.0 62 19 115/68 (84) 96 10/30/18 04:00 98.2 59 20 111/66 (81) 95 10/30/18 00:00 97.4 64 20 126/100 (109) 95 10/29/18 21:00 Room Air 10/29/18 20:26 79 124/60 10/29/18 20:00 98.0 79 20 124/60 (81) 94 10/29/18 16:00 98.2 86 16 122/68 (86) 98 10/29/18 12:00 98.0 78 20 133/59 (83) 95 10/29/18 09:09 79 132/69 10/29/18 09:00 Room Air Height (Feet): 6 Height (Inches): 4.00 Weight (Pounds): 288 Objective GENERAL: NAD, oriented x2 CARDIOVASCULAR: RRR, No murmur. LUNGS: Distant and clear. ABDOMEN: Bowel sound positive. Slightly tender. ND EXTREMITIES: No cyanosis, clubbing, or edema. NEUROLOGIC: The patient moves all extremities, slightly weak. Laboratory Tests Test 10/30/18 05:55 White Blood Count Pending Red Blood Count Pending Hemoglobin Pending Hematocrit Pending Mean Corpuscular Volume Pending Mean Corpuscular Hemoglobin Pending Mean Corpuscular Hemoglobin Concent Pending Red Cell Distribution Width Pending Platelet Count Pending Mean Platelet Volume Pending Neutrophils (%) (Auto) Pending Lymphocytes (%) (Auto) Pending Monocytes (%) (Auto) Pending Eosinophils (%) (Auto) Pending Basophils (%) (Auto) Pending Sodium Level 139 MMOL/L (136-145) Potassium Level 3.7 MMOL/L (3.5-5.1) Chloride Level 105 MMOL/L (98-107) Carbon Dioxide Level 26 MMOL/L (21-32) Anion Gap 8 mmol/L (5-15) Blood Urea Nitrogen 14 mg/dL (7-18) Creatinine 0.9 MG/DL (0.55-1.30) Estimat Glomerular Filtration Rate > 60 mL/min (>60) Glucose Level 111 MG/DL (74-106) H Calcium Level 8.8 MG/DL (8.5-10.1) Total Bilirubin 0.4 MG/DL (0.2-1.0) Aspartate Amino Transf (AST/SGOT) 89 U/L (15-37) H Alanine Aminotransferase (ALT/SGPT) 92 U/L (12-78) H Alkaline Phosphatase 75 U/L (46-116) Total Protein 8.5 G/DL (6.4-8.2) H Albumin 2.8 G/DL (3.4-5.0) L Globulin 5.7 g/dL Albumin/Globulin Ratio 0.5 (1.0-2.7) L Current Medications Medications (Trade) Dose Ordered Sig/Hugo Route PRN Reason Start Time Stop Time Status Last Admin Dose Admin Al Hydroxide/Mg Hydroxide (Mylanta II) 30 ml Q6H PRN ORAL dyspepsia 10/23/18 14:50 11/22/18 14:49 Aripiprazole (Abilify) 5 mg BEDTIME ORAL 10/23/18 21:00 11/22/18 20:59 10/29/18 20:25 Carisoprodol (Soma) 350 mg THREE TIMES A DAY ORAL 10/25/18 18:00 11/22/18 21:59 10/29/18 19:02 Dextrose (Dextrose 50%) 25 ml Q30M PRN IV Hypoglycemia 10/23/18 14:51 11/22/18 14:50 Dextrose (Dextrose 50%) 50 ml Q30M PRN IV Hypoglycemia 10/23/18 14:51 11/22/18 14:50 Dextrose/ Electrolytes 1,000 ml @ 75 mls/hr [id number] IV 10/24/18 16:00 11/23/18 15:59 10/29/18 09:10 Diphenhydramine HCl (Benadryl) 25 mg Q6H PRN ORAL Itching/Pruritis 10/23/18 14:50 11/22/18 14:49 10/24/18 06:40 Docusate Sodium (Colace) 100 mg TID ORAL 10/25/18 18:00 11/22/18 20:59 10/29/18 09:04 Famotidine (Pepcid) 20 mg Q12HR ORAL 10/28/18 09:00 11/27/18 08:59 10/29/18 20:25 Gabapentin (Neurontin) 600 mg THREE TIMES A DAY ORAL 10/23/18 18:00 11/22/18 17:59 10/29/18 19:01 Lorazepam (Ativan 2mg/ml 1ml) 0.5 mg Q4H PRN IV For Anxiety 10/23/18 14:50 10/30/18 14:49 Magnesium Hydroxide (Mom) 30 ml HSPRN PRN ORAL Constipation 10/23/18 21:00 11/22/18 20:59 Metoprolol Tartrate (Lopressor) 25 mg EVERY 12 HOURS ORAL 10/23/18 21:00 11/22/18 20:59 10/29/18 20:26 Morphine Sulfate (Morphine Sulfate) 1 mg Q4H PRN IVP Mild Pain(1-3) 10/23/18 14:51 10/30/18 14:50 10/28/18 11:56 Morphine Sulfate (Morphine Sulfate) 2 mg Q4H PRN IVP Moderate Pain (Pain Scale 4-6) 10/23/18 14:51 10/30/18 14:50 10/28/18 05:37 Morphine Sulfate (Morphine Sulfate) 4 mg Q4H PRN IVP Severe Pain (Pain Scale 7-10) 10/23/18 14:52 10/30/18 14:51 10/30/18 05:57 Ondansetron HCl (Zofran) 4 mg Q6H PRN IVP Nausea & Vomiting 10/23/18 14:50 11/22/18 14:49 Sertraline HCl (Zoloft) 50 mg DAILY ORAL 10/24/18 09:00 11/23/18 08:59 10/29/18 09:07 Tamsulosin HCl (Flomax) 0.4 mg BID ORAL 10/23/18 18:00 11/22/18 17:59 10/29/18 17:28 Trazodone HCl (Desyrel) 50 mg BEDTIME ORAL 10/23/18 21:00 11/22/18 20:59 10/29/18 20:25 Will Lux MD Oct 30, 2018 08:45
[2018-10-30 08:46] LABS: HEMATOCRIT 45.4 % (42.0-52.0); HEMOGLOBIN 14.4 G/DL (14.2-18.0); MEAN CORPUSCULAR VOLUME 84 FL (80-99); PLATELET COUNT 95 K/UL (150-450); RED BLOOD COUNT 5.38 M/UL (4.70-6.10); RED CELL DISTRIBUTION WIDTH 13.8 % (11.6-14.8); WHITE BLOOD COUNT 3.9 K/UL (4.8-10.8)
--- NOTE | 2018-10-30 08:51 | General Progress Note ---
Assessment/Plan Problem List: (1) UTI (urinary tract infection) ICD Codes: N39.0 - Urinary tract infection, site not specified SNOMED: 30313766 (2) Depressed ICD Codes: F32.9 - Major depressive disorder, single episode, unspecified SNOMED: 34442639 (3) Cirrhosis ICD Codes: K74.60 - Unspecified cirrhosis of liver SNOMED: 91200632 (4) Thrombocytopenia ICD Codes: D69.6 - Thrombocytopenia, unspecified SNOMED: 400260142 (5) Intractable abdominal pain ICD Codes: R10.9 - Unspecified abdominal pain SNOMED: 13425248, 584704211 (6) Lower GI bleed ICD Codes: K92.2 - Gastrointestinal hemorrhage, unspecified SNOMED: 32242379 (7) Psychosis ICD Codes: F29 - Unspecified psychosis not due to a substance or known physiological condition SNOMED: 56887344 (8) History of CVA (cerebrovascular accident) ICD Codes: Z86.73 - Personal history of transient ischemic attack (TIA), and cerebral infarction without residual deficits SNOMED: 897991019 Status: unchanged Assessment/Plan ot pt diet abx per id gi/heme f/u cbc bmp am dc if clear Subjective Constitutional: Reports: weakness Allergies: Coded Allergies: ACETAMINOPHEN (Verified Allergy, Unknown, 08/28/18) ASPIRIN (Verified Allergy, Unknown, 08/28/18) KETOROLAC (Verified Allergy, Unknown, 08/28/18) NSAIDS (NON-STEROIDAL ANTI-INFLAMMA (Verified Allergy, Unknown, 09/09/18) All Systems: reviewed and negative except above Subjective calm in bed Objective Last 24 Hour Vital Signs Date Time Temp Pulse Resp B/P (MAP) Pulse Ox O2 Delivery O2 Flow Rate FiO2 10/30/18 08:00 98.0 62 19 115/68 (84) 96 10/30/18 04:00 98.2 59 20 111/66 (81) 95 10/30/18 00:00 97.4 64 20 126/100 (109) 95 10/29/18 21:00 Room Air 10/29/18 20:26 79 124/60 10/29/18 20:00 98.0 79 20 124/60 (81) 94 10/29/18 16:00 98.2 86 16 122/68 (86) 98 10/29/18 12:00 98.0 78 20 133/59 (83) 95 10/29/18 09:09 79 132/69 10/29/18 09:00 Room Air Intake and Output 10/29/18 10/30/18 18:59 06:59 Intake Total 1245 ml 250 ml Output Total 1100 ml 1250 ml Balance 145 ml -1000 ml Intake Oral 720 ml 250 ml IV Total 525 ml Output Urine Total 1100 ml 1250 ml # Bowel Movements 1 Laboratory Tests 10/30/18 05:55: White Blood Count 3.9L, Red Blood Count 5.38, Hemoglobin 14.4, Hematocrit 45.4, Mean Corpuscular Volume 84, Mean Corpuscular Hemoglobin 26.8L, Mean Corpuscular Hemoglobin Concent 31.8L, Red Cell Distribution Width 13.8, Platelet Count 95L, Mean Platelet Volume 9.4, Neutrophils (%) (Auto) , Lymphocytes (%) (Auto) , Monocytes (%) (Auto) , Eosinophils (%) (Auto) , Basophils (%) (Auto) , Neutrophils % (Manual) [Pending], Lymphocytes % (Manual) [Pending], Platelet Estimate [Pending], Platelet Morphology [Pending], Sodium Level 139, Potassium Level 3.7, Chloride Level 105, Carbon Dioxide Level 26, Anion Gap 8, Blood Urea Nitrogen 14, Creatinine 0.9, Estimat Glomerular Filtration Rate > 60, Glucose Level 111H, Calcium Level 8.8, Total Bilirubin 0.4, Aspartate Amino Transf (AST/ SGOT) 89H, Alanine Aminotransferase (ALT/SGPT) 92H, Alkaline Phosphatase 75, Total Protein 8.5H, Albumin 2.8L, Globulin 5.7, Albumin/Globulin Ratio 0.5L Height (Feet): 6 Height (Inches): 4.00 Weight (Pounds): 288 General Appearance: lethargic EENT: normal ENT inspection Neck: normal alignment Cardiovascular: normal peripheral pulses, normal rate, regular rhythm Respiratory/Chest: chest wall non-tender, lungs clear, normal breath sounds Abdomen: normal bowel sounds, non tender, soft Extremities: normal inspection Edema: no edema noted Arm (L), no edema noted Arm (R), no edema noted Leg (L), no edema noted Leg (R), no edema noted Pedal (L), no edema noted Pedal (R), no edema noted Generalized Neurologic: motor weakness Skin: normal pigmentation, warm/dry Roberto Georges DO Oct 30, 2018 08:51
[2018-10-30] MEDS: Metoprolol 25mg tab ORAL SCH ×2 (10:01→20:52)
[2018-10-30] MEDS: Docusate 100mg cap ORAL SCH ×3 (10:02→17:53)
[2018-10-30] MEDS: Tamsulosin 0.4mg cap ORAL SCH ×2 (10:02→17:53)
[2018-10-30] MEDS: Sertraline 50mg tab ORAL SCH (10:02)
--- NOTE | 2018-10-30 10:30 | General Surgery Progress Note ---
General Surgery-Progress Note Subjective Additional Comments doing well. no acute events. comfortable. tolerating diet. Objective Last 24 Hour Vital Signs Date Time Temp Pulse Resp B/P (MAP) Pulse Ox O2 Delivery O2 Flow Rate FiO2 10/30/18 10:01 74 111/63 10/30/18 09:00 Room Air 10/30/18 08:00 98.0 62 19 115/68 (84) 96 10/30/18 04:00 98.2 59 20 111/66 (81) 95 10/30/18 00:00 97.4 64 20 126/100 (109) 95 10/29/18 21:00 Room Air 10/29/18 20:26 79 124/60 10/29/18 20:00 98.0 79 20 124/60 (81) 94 10/29/18 16:00 98.2 86 16 122/68 (86) 98 10/29/18 12:00 98.0 78 20 133/59 (83) 95 I&O Intake and Output 10/29/18 10/30/18 18:59 06:59 Intake Total 1245 ml 250 ml Output Total 1100 ml 1250 ml Balance 145 ml -1000 ml Intake Oral 720 ml 250 ml IV Total 525 ml Output Urine Total 1100 ml 1250 ml # Bowel Movements 1 Drains: none Cardiovascular: RSR Respiratory: clear Abdomen: soft, flat, non-tender, present bowel sounds Extremities: no tenderness, no cyanosis Laboratory Tests Test 10/30/18 05:55 White Blood Count 3.9 K/UL (4.8-10.8) L Red Blood Count 5.38 M/UL (4.70-6.10) Hemoglobin 14.4 G/DL (14.2-18.0) Hematocrit 45.4 % (42.0-52.0) Mean Corpuscular Volume 84 FL (80-99) Mean Corpuscular Hemoglobin 26.8 PG (27.0-31.0) L Mean Corpuscular Hemoglobin Concent 31.8 G/DL (32.0-36.0) L Red Cell Distribution Width 13.8 % (11.6-14.8) Platelet Count 95 K/UL (150-450) L Mean Platelet Volume 9.4 FL (6.5-10.1) Neutrophils (%) (Auto) % (45.0-75.0) Lymphocytes (%) (Auto) % (20.0-45.0) Monocytes (%) (Auto) % (1.0-10.0) Eosinophils (%) (Auto) % (0.0-3.0) Basophils (%) (Auto) % (0.0-2.0) Neutrophils % (Manual) Pending Lymphocytes % (Manual) Pending Platelet Estimate Pending Platelet Morphology Pending Sodium Level 139 MMOL/L (136-145) Potassium Level 3.7 MMOL/L (3.5-5.1) Chloride Level 105 MMOL/L (98-107) Carbon Dioxide Level 26 MMOL/L (21-32) Anion Gap 8 mmol/L (5-15) Blood Urea Nitrogen 14 mg/dL (7-18) Creatinine 0.9 MG/DL (0.55-1.30) Estimat Glomerular Filtration Rate > 60 mL/min (>60) Glucose Level 111 MG/DL (74-106) H Calcium Level 8.8 MG/DL (8.5-10.1) Total Bilirubin 0.4 MG/DL (0.2-1.0) Aspartate Amino Transf (AST/SGOT) 89 U/L (15-37) H Alanine Aminotransferase (ALT/SGPT) 92 U/L (12-78) H Alkaline Phosphatase 75 U/L (46-116) Total Protein 8.5 G/DL (6.4-8.2) H Albumin 2.8 G/DL (3.4-5.0) L Globulin 5.7 g/dL Albumin/Globulin Ratio 0.5 (1.0-2.7) L Plan Problems: (1) Intractable abdominal pain Assessment & Plan: improving US noted CT noted pain resolved -okay for diet -no surgical intervention planned -okay to d/c from surgical standpoint thank you will follow with Rashid Bond Oct 30, 2018 10:30
[2018-10-30 12:00] VITALS: BP 118/50
[2018-10-30] MEDS ORDERED: Morphine Sulfate 2mg/ml Inj IVP PRN (14:30)
[2018-10-30] MEDS ORDERED: Morphine Sulfate 4mg/ml Inj (IV/IM USE ONLY) IVP PRN (14:30)
[2018-10-30] MEDS ORDERED: LORazepam Inj 2mg/ml 1ml IV PRN (14:30)
[2018-10-30] MEDS: Morphine Sulfate 2mg/ml Inj IVP PRN ×2 (14:57→19:00)
[2018-10-30 16:00] VITALS: BP 121/49
[2018-10-30 20:00] VITALS: BP 114/60
[2018-10-30] MEDS: TraZODone 50mg tab ORAL SCH (20:52)
--- NOTE | 2018-10-30 23:00 | Progress Note ---
DATE: 10/30/2018 SUBJECTIVE: This is a 52-year-old male patient with flank pain and GI problems, but he also has mood lability, confusion, diagnosis of paranoid schizophrenia, still has some mood lability, confusion, and altered mental status, worsened by stress of his medical illness. MENTAL STATUS EXAMINATION: A 52-year-old male. Appearance is disheveled. Attitude, irritable and agitated. Affect, guarded and restricted. Intellect poor. Mood depressed and anxious. Motor activity, psychomotor agitation. Attention span is poor. Orientation x2. Speech is low volume and slurred. Thought process, disorganized. Thought content, auditory hallucinations and paranoid delusions. Insight and judgment is poor. DIAGNOSIS: Paranoid schizophrenia with acute exacerbation. PLAN: Treat him with a medication regimen of Abilify 5 mg daily and Zoloft 50 mg daily. Provided him with 20 minutes of cognitive behavioral therapy to help him identify his automatic negative thoughts to help him convert those negative thoughts to more positive thinking to reduce depression, anxiety, and suicidality and also to help him have a more adaptive behavioral pattern. Chart reviewed. Discussed with staff. Seen and assessed at the bedside. Amy Benites M.D. DR: YONY JOB#: [id number] CC:
[2018-10-31] VITALS: BP 115/73
[2018-10-31] MEDS: Morphine Sulfate 2mg/ml Inj IVP PRN ×4 (00:22→15:22)
[2018-10-31 04:00] VITALS: BP 113/70
[2018-10-31] MEDS: D5 1/2NS w/KCl 20mEq 1,000 ML IV SCH (04:06)
[2018-10-31 07:32] LABS: BASOPHILS % (AUTO) 0.6 % (0.0-2.0); EOSINOPHILS % (AUTO) 3.3 % (0.0-3.0); HEMATOCRIT 43.9 % (42.0-52.0); HEMOGLOBIN 14.3 G/DL (14.2-18.0); LYMPHOCYTES % (AUTO) 25.2 % (20.0-45.0); MEAN CORPUSCULAR VOLUME 84 FL (80-99); MONOCYTES % (AUTO) 11.3 % (1.0-10.0); NEUTROPHILS % (AUTO) 59.7 % (45.0-75.0); PLATELET COUNT 101 K/UL (150-450); RED BLOOD COUNT 5.22 M/UL (4.70-6.10); RED CELL DISTRIBUTION WIDTH 13.8 % (11.6-14.8); WHITE BLOOD COUNT 5.1 K/UL (4.8-10.8)
[2018-10-31 08:00] VITALS: BP 118/69
[2018-10-31 08:01] LABS: ANION GAP 9 mmol/L (5-15); BLOOD UREA NITROGEN 15 mg/dL (7-18); CALCIUM 8.6 MG/DL (8.5-10.1); CARBON DIOXIDE 25 MMOL/L (21-32); CHLORIDE 106 MMOL/L (98-107); CREATININE 0.9 MG/DL (0.55-1.30); POTASSIUM 4.1 MMOL/L (3.5-5.1); SODIUM 140 MMOL/L (136-145)
--- NOTE | 2018-10-31 08:12 | Pulmonology Progress Note ---
Assessment/Plan Assessment/Plan ASSESSMENT Low GI bleeding intractable abdominal pain -resolving cirrhosis hx of CVA with L sided hemiparesis nephrolithiasis Hx of Hep C thrombocytopenia ( due to liver disease) MDD with psychotic features elevated LFT PLAN OF CARE [facility] floor abd US and CT A/P noted GI follows colonoscopy cancelled/pt unable to tolerate prep, given no anemia and no recurrent bleeding, recommended outpt procedure trend LFT pain management a/emetic prn symptomatic treatment GI prophylaxis monitor diet tolerance per surgery no surgical interventions required off abx, ID follows BP management with BB, hep panel pending, HIV test nonreactive psych follows, psych meds optimized as per psych DNR/DNI status dc plan case discussed and evaluated by supervising physician Subjective Allergies: Coded Allergies: ACETAMINOPHEN (Verified Allergy, Unknown, 08/28/18) ASPIRIN (Verified Allergy, Unknown, 08/28/18) KETOROLAC (Verified Allergy, Unknown, 08/28/18) NSAIDS (NON-STEROIDAL ANTI-INFLAMMA (Verified Allergy, Unknown, 09/09/18) Subjective no leukocytosis, no fevers intermittent RLQ pain, controlled with meds Objective Last 24 Hour Vital Signs Date Time Temp Pulse Resp B/P (MAP) Pulse Ox O2 Delivery O2 Flow Rate FiO2 10/31/18 04:52 98.1 10/31/18 04:00 97.9 63 18 113/70 (84) 94 10/31/18 00:00 98.1 71 18 115/73 (87) 95 10/30/18 21:00 Room Air 10/30/18 20:52 75 114/60 10/30/18 20:00 96.8 75 17 114/60 (78) 94 10/30/18 18:23 97.0 10/30/18 16:00 97.0 67 18 121/49 (73) 96 10/30/18 12:00 97.0 63 18 118/50 (72) 95 10/30/18 10:01 74 111/63 10/30/18 09:00 Room Air Intake and Output 10/30/18 10/31/18 19:00 07:00 Intake Total 150 ml 820 ml Output Total 900 ml 500 ml Balance -750 ml 320 ml IV Total 150 ml 820 ml Output Urine Total 900 ml 500 ml # Voids 3 # Bowel Movements 1 Objective General Appearance: no acute distress, awake, alert, oriented obese male HEENT: normocephalic, atraumatic, anicteric Respiratory/Chest: lungs clear - with moderate air exchange Cardiovascular: normal rate with distant heart sounds Abdomen: normal bowel sounds, abdomen soft, obese, RLQ tenderness, no rebound , no guarding Extremities: no edema, pedal pulses normal Neurologic/Psychiatric: alert, other - L side hemiparesis Laboratory Tests 10/31/18 05:45: White Blood Count 5.1, Red Blood Count 5.22, Hemoglobin 14.3, Hematocrit 43.9, Mean Corpuscular Volume 84, Mean Corpuscular Hemoglobin 27.4, Mean Corpuscular Hemoglobin Concent 32.6, Red Cell Distribution Width 13.8, Platelet Count 101L, Mean Platelet Volume 9.0, Neutrophils (%) (Auto) 59.7, Lymphocytes (%) (Auto) 25.2, Monocytes (%) (Auto) 11.3H, Eosinophils (%) (Auto) 3.3H, Basophils (%) ( Auto) 0.6, Sodium Level 140, Potassium Level 4.1, Chloride Level 106, Carbon Dioxide Level 25, Anion Gap 9, Blood Urea Nitrogen 15, Creatinine 0.9, Estimat Glomerular Filtration Rate > 60, Glucose Level 113H, Calcium Level 8.6 Current Medications Medications (Trade) Dose Ordered Sig/Hugo Route PRN Reason Start Time Stop Time Status Last Admin Dose Admin Al Hydroxide/Mg Hydroxide (Mylanta II) 30 ml Q6H PRN ORAL dyspepsia 10/23/18 14:50 11/22/18 14:49 Aripiprazole (Abilify) 5 mg BEDTIME ORAL 10/23/18 21:00 11/22/18 20:59 10/30/18 20:52 Carisoprodol (Soma) 350 mg THREE TIMES A DAY ORAL 10/25/18 18:00 11/22/18 21:59 10/30/18 17:53 Dextrose (Dextrose 50%) 25 ml Q30M PRN IV Hypoglycemia 10/23/18 14:51 11/22/18 14:50 Dextrose (Dextrose 50%) 50 ml Q30M PRN IV Hypoglycemia 10/23/18 14:51 11/22/18 14:50 Dextrose/ Electrolytes 1,000 ml @ 75 mls/hr [id number] IV 12/9/18 16:00 11/23/18 15:59 10/31/18 04:06 Diphenhydramine HCl (Benadryl) 25 mg Q6H PRN ORAL Itching/Pruritis 10/23/18 14:50 11/22/18 14:49 10/24/18 06:40 Docusate Sodium (Colace) 100 mg TID ORAL 10/25/18 18:00 11/22/18 20:59 10/30/18 17:53 Famotidine (Pepcid) 20 mg Q12HR ORAL 10/28/18 09:00 11/27/18 08:59 10/30/18 20:52 Gabapentin (Neurontin) 600 mg THREE TIMES A DAY ORAL 10/23/18 18:00 11/22/18 17:59 10/30/18 17:53 Lorazepam (Ativan 2mg/ml 1ml) 0.5 mg Q4H PRN IV For Anxiety 10/30/18 14:30 11/06/18 14:29 Magnesium Hydroxide (Mom) 30 ml HSPRN PRN ORAL Constipation 10/23/18 21:00 11/22/18 20:59 Metoprolol Tartrate (Lopressor) 25 mg EVERY 12 HOURS ORAL 10/23/18 21:00 11/22/18 20:59 10/30/18 20:52 Morphine Sulfate (Morphine Sulfate) 1 mg Q4H PRN IVP Mild Pain(1-3) 10/30/18 14:30 11/06/18 14:29 Morphine Sulfate (Morphine Sulfate) 2 mg Q4H PRN IVP Moderate Pain (Pain Scale 4-6) 10/30/18 14:30 11/06/18 14:29 10/31/18 04:22 Morphine Sulfate (Morphine Sulfate) 4 mg Q4H PRN IVP Severe Pain (Pain Scale 7-10) 10/30/18 14:30 11/06/18 14:29 Ondansetron HCl (Zofran) 4 mg Q6H PRN IVP Nausea & Vomiting 10/23/18 14:50 11/22/18 14:49 Sertraline HCl (Zoloft) 50 mg DAILY ORAL 10/24/18 09:00 11/23/18 08:59 10/30/18 10:02 Tamsulosin HCl (Flomax) 0.4 mg BID ORAL 10/23/18 18:00 11/22/18 17:59 10/30/18 17:53 Trazodone HCl (Desyrel) 50 mg BEDTIME ORAL 10/23/18 21:00 11/22/18 20:59 10/30/18 20:52 Sharlene Chicas NP Oct 31, 2018 08:12
--- NOTE | 2018-10-31 08:46 | General Progress Note ---
Assessment/Plan Problem List: (1) UTI (urinary tract infection) ICD Codes: N39.0 - Urinary tract infection, site not specified SNOMED: 28557737 (2) Depressed ICD Codes: F32.9 - Major depressive disorder, single episode, unspecified SNOMED: 55458712 (3) Cirrhosis ICD Codes: K74.60 - Unspecified cirrhosis of liver SNOMED: 21490253 (4) Thrombocytopenia ICD Codes: D69.6 - Thrombocytopenia, unspecified SNOMED: 671327684 (5) Intractable abdominal pain ICD Codes: R10.9 - Unspecified abdominal pain SNOMED: 38700958, 481385747 (6) Lower GI bleed ICD Codes: K92.2 - Gastrointestinal hemorrhage, unspecified SNOMED: 92413420 (7) Psychosis ICD Codes: F29 - Unspecified psychosis not due to a substance or known physiological condition SNOMED: 96405576 (8) History of CVA (cerebrovascular accident) ICD Codes: Z86.73 - Personal history of transient ischemic attack (TIA), and cerebral infarction without residual deficits SNOMED: 655387411 Status: unchanged Assessment/Plan ot pt diet abx per id gi/heme f/u cbc bmp am dc if clear Subjective Constitutional: Reports: weakness Allergies: Coded Allergies: ACETAMINOPHEN (Verified Allergy, Unknown, 08/28/18) ASPIRIN (Verified Allergy, Unknown, 08/28/18) KETOROLAC (Verified Allergy, Unknown, 08/28/18) NSAIDS (NON-STEROIDAL ANTI-INFLAMMA (Verified Allergy, Unknown, 09/09/18) All Systems: reviewed and negative except above Subjective calm in bed Objective Last 24 Hour Vital Signs Date Time Temp Pulse Resp B/P (MAP) Pulse Ox O2 Delivery O2 Flow Rate FiO2 10/31/18 04:52 98.1 10/31/18 04:00 97.9 63 18 113/70 (84) 94 10/31/18 00:00 98.1 71 18 115/73 (87) 95 10/30/18 21:00 Room Air 10/30/18 20:52 75 114/60 10/30/18 20:00 96.8 75 17 114/60 (78) 94 10/30/18 18:23 97.0 10/30/18 16:00 97.0 67 18 121/49 (73) 96 10/30/18 12:00 97.0 63 18 118/50 (72) 95 10/30/18 10:01 74 111/63 10/30/18 09:00 Room Air Intake and Output 10/30/18 10/31/18 19:00 07:00 Intake Total 150 ml 820 ml Output Total 900 ml 500 ml Balance -750 ml 320 ml IV Total 150 ml 820 ml Output Urine Total 900 ml 500 ml # Voids 3 # Bowel Movements 1 Laboratory Tests 10/31/18 05:45: White Blood Count 5.1, Red Blood Count 5.22, Hemoglobin 14.3, Hematocrit 43.9, Mean Corpuscular Volume 84, Mean Corpuscular Hemoglobin 27.4, Mean Corpuscular Hemoglobin Concent 32.6, Red Cell Distribution Width 13.8, Platelet Count 101L, Mean Platelet Volume 9.0, Neutrophils (%) (Auto) 59.7, Lymphocytes (%) (Auto) 25.2, Monocytes (%) (Auto) 11.3H, Eosinophils (%) (Auto) 3.3H, Basophils (%) ( Auto) 0.6, Sodium Level 140, Potassium Level 4.1, Chloride Level 106, Carbon Dioxide Level 25, Anion Gap 9, Blood Urea Nitrogen 15, Creatinine 0.9, Estimat Glomerular Filtration Rate > 60, Glucose Level 113H, Calcium Level 8.6 Height (Feet): 6 Height (Inches): 4.00 Weight (Pounds): 288 General Appearance: lethargic EENT: normal ENT inspection Neck: normal alignment Cardiovascular: normal peripheral pulses, normal rate, regular rhythm Respiratory/Chest: chest wall non-tender, lungs clear, normal breath sounds Abdomen: normal bowel sounds, non tender, soft Extremities: normal inspection Edema: no edema noted Arm (L), no edema noted Arm (R), no edema noted Leg (L), no edema noted Leg (R), no edema noted Pedal (L), no edema noted Pedal (R), no edema noted Generalized Neurologic: motor weakness Skin: normal pigmentation, warm/dry Roberto Georges DO Oct 31, 2018 08:46
[2018-10-31] MEDS: Sertraline 50mg tab ORAL SCH (09:03)
[2018-10-31] MEDS: Docusate 100mg cap ORAL SCH ×3 (09:04→17:33)
[2018-10-31] MEDS: Metoprolol 25mg tab ORAL SCH ×2 (09:04→20:09)
[2018-10-31] MEDS: Tamsulosin 0.4mg cap ORAL SCH ×2 (09:04→17:33)
[2018-10-31 12:00] VITALS: BP 116/77
--- NOTE | 2018-10-31 12:04 | General Progress Note ---
Assessment/Plan Assessment/Plan # Thrombocytopenia due to underlying hep C, stable approx 100k --> Cont to monitor and tend plt count for stability/improvement --> Hep panel in past showed hep c. HIV negative --> US abd does not cirrhosis or hsm --> Peripheral smear ordered to evaluate for blasts /schistocytes and none noted --> abx and other meds have been reviewed --> ok for ppx if plt >50k w/ wither heparin or lovenox --> Trend 109k--> 102k--> 77k-->68k-->80k-->101k # Leukopenia - due to underlying hep C --> Continue to monitor for improvement --> US abd does not show cirrhosis or hepatosplenomegaly --> o/p eradication as per gi # GI bleed with blood stool --> h/h stable, therefore outpatient eval # Abdominal pain --> Pain has improved --> with blood emesis, outpatient w/u --> surgery was consulted, no surgery intervention planned. # History of CVA (cerebrovascular accident) # [facility] GREATLY APPRECIATE CONSULTATION. Subjective Constitutional: Denies: no symptoms, chills, diaphoresis, fever, malaise, weakness, other HEENT: Denies: no symptoms, eye pain, blurred vision, tearing, double vision, ear pain, ear discharge, nose pain, nose congestion, throat pain, throat swelling, mouth pain, mouth swelling, other Cardiovascular: Denies: no symptoms, chest pain, edema, irregular heart rate, lightheadedness, palpitations, syncope, other Respiratory: Denies: no symptoms, cough, orthopnea, shortness of breath, SOB with excertion, SOB at rest, sputum, stridor, wheezing, other Gastrointestinal/Abdominal: Denies: no symptoms, abdomen distended, abdominal pain, black stools, tarry stools, blood in stool, constipated, diarrhea, difficulty swallowing, nausea, poor appetite, poor fluid intake, rectal bleeding , vomiting, other Genitourinary: Denies: no symptoms, burning, discharge, frequency, flank pain, hematuria, incontinence, pain, urgency, other Endocrine: Denies: no symptoms, excessive sweating, flushing, intolerance to cold, intolerance to heat, increased hunger, increased thirst, increased urine, unexplained weight gain, unexplained weight loss, other Hematologic/Lymphatic: Denies: no symptoms, anemia, easy bleeding, easy bruising, other Allergies: Coded Allergies: ACETAMINOPHEN (Verified Allergy, Unknown, 08/28/18) ASPIRIN (Verified Allergy, Unknown, 08/28/18) KETOROLAC (Verified Allergy, Unknown, 08/28/18) NSAIDS (NON-STEROIDAL ANTI-INFLAMMA (Verified Allergy, Unknown, 09/09/18) Subjective Pt awake and alert. No acute events. No abd pain. cbc pending Objective Last 24 Hour Vital Signs Date Time Temp Pulse Resp B/P (MAP) Pulse Ox O2 Delivery O2 Flow Rate FiO2 10/31/18 09:04 72 118/69 10/31/18 09:00 Room Air 10/31/18 08:00 98.2 72 19 118/69 (85) 95 10/31/18 04:52 98.1 10/31/18 04:00 97.9 63 18 113/70 (84) 94 10/31/18 00:00 98.1 71 18 115/73 (87) 95 10/30/18 21:00 Room Air 10/30/18 20:52 75 114/60 10/30/18 20:00 96.8 75 17 114/60 (78) 94 10/30/18 18:23 97.0 10/30/18 16:00 97.0 67 18 121/49 (73) 96 Intake and Output 10/30/18 10/31/18 18:59 06:59 Intake Total 150 ml 820 ml Output Total 900 ml 500 ml Balance -750 ml 320 ml IV Total 150 ml 820 ml Output Urine Total 900 ml 500 ml # Voids 3 # Bowel Movements 1 Laboratory Tests 10/31/18 05:45: White Blood Count 5.1, Red Blood Count 5.22, Hemoglobin 14.3, Hematocrit 43.9, Mean Corpuscular Volume 84, Mean Corpuscular Hemoglobin 27.4, Mean Corpuscular Hemoglobin Concent 32.6, Red Cell Distribution Width 13.8, Platelet Count 101L, Mean Platelet Volume 9.0, Neutrophils (%) (Auto) 59.7, Lymphocytes (%) (Auto) 25.2, Monocytes (%) (Auto) 11.3H, Eosinophils (%) (Auto) 3.3H, Basophils (%) ( Auto) 0.6, Sodium Level 140, Potassium Level 4.1, Chloride Level 106, Carbon Dioxide Level 25, Anion Gap 9, Blood Urea Nitrogen 15, Creatinine 0.9, Estimat Glomerular Filtration Rate > 60, Glucose Level 113H, Calcium Level 8.6 Height (Feet): 6 Height (Inches): 4.00 Weight (Pounds): 288 Objective General Appearance: normal inspection, well appearing, no apparent distress Head: atraumatic ENT: normal ENT inspection, hearing grossly normal, normal voice Neck: normal inspection, full range of motion, supple, no bony tend Respiratory: normal inspection, lungs clear, normal breath sounds, no respiratory distress, no retraction, no wheezing Cardiovascular #1: regular rate, rhythm, no edema Gastrointestinal: normal inspection, normal bowel sounds, non tender, soft, no guarding, no hernia Genitourinary: no CVA tenderness Musculoskeletal: normal inspection, back normal, normal range of motion Neurologic: normal inspection, alert, responsive, speech normal Psychiatric: normal inspection, judgement/insight normal, mood/affect normal Skin: normal inspection, normal color, no rash Bebo Agustin MD Oct 31, 2018 12:04
[2018-10-31 16:00] VITALS: BP 118/79
--- NOTE | 2018-10-31 16:00 | Progress Note ---
DATE: 10/31/2018 SUBJECTIVE: This 52-year-old male patient in the hospital secondary to GI bleeding and flank pain. He continues to have some irritability, agitation, and mood lability. The patient continues to have some mood lability and depression worsened by stress of his medical illness, that is why his attending physician has requested daily psychiatric consultation. He also has racing thoughts. MENTAL STATUS EXAMINATION: This is a 52-year-old male. Appearance is disheveled. Attitude is irritable and agitated. Affect, guarded and restricted. Intellect is poor. Mood is depressed and anxious. Motor activity, psychomotor agitation. Attention span is poor. Orientation x2. Speech is pressured. Thought process is disorganized and illogical. Thought content, auditory hallucinations and paranoid delusions. Insight and judgment is poor. DIAGNOSIS: Paranoid schizophrenia with acute exacerbation. PLAN: Treat him with Abilify 5 mg nightly, Zoloft 50 mg daily, and trazodone 50 mg nightly. Provide him with 20 minutes of cognitive behavioral therapy to help him identify his automatic negative thoughts to help him convert those negative thoughts to more positive thinking to reduce depression, anxiety, and suicidality. Also treat him with Neurontin 600 mg three times a day for anxiety. Also 20 minutes of cognitive behavioral therapy to help him identify automatic negative thoughts to help him convert those negative thought to more positive thoughts to reduce depression, anxiety, and suicidality. Chart reviewed and discussed with staff. Twenty minutes of cognitive behavioral therapy provided to help him identify his automatic negative thoughts to help him convert those negative thoughts to more positive thinking to reduce depression, anxiety, and suicidality, and to help him have a more adaptive behavioral pattern. Chart reviewed and discussed with staff. Amy Benites M.D. DR: AMAN JOB#: [id number] CC:
--- NOTE | 2018-10-31 16:41 | General Surgery Progress Note ---
General Surgery-Progress Note Subjective Symptoms: improved, tolerating diet, passing flatus Objective Last 24 Hour Vital Signs Date Time Temp Pulse Resp B/P (MAP) Pulse Ox O2 Delivery O2 Flow Rate FiO2 10/31/18 16:00 97.8 74 20 118/79 (92) 98 10/31/18 12:00 98.0 76 20 116/77 (90) 97 10/31/18 09:04 72 118/69 10/31/18 09:00 Room Air 10/31/18 08:00 98.2 72 19 118/69 (85) 95 10/31/18 04:52 98.1 10/31/18 04:00 97.9 63 18 113/70 (84) 94 10/31/18 00:00 98.1 71 18 115/73 (87) 95 10/30/18 21:00 Room Air 10/30/18 20:52 75 114/60 10/30/18 20:00 96.8 75 17 114/60 (78) 94 10/30/18 18:23 97.0 I&O Intake and Output 10/30/18 10/31/18 18:59 06:59 Intake Total 150 ml 820 ml Output Total 900 ml 500 ml Balance -750 ml 320 ml IV Total 150 ml 820 ml Output Urine Total 900 ml 500 ml # Voids 3 # Bowel Movements 1 Drains: none Cardiovascular: RSR Respiratory: clear Abdomen: soft, flat, non-tender, present bowel sounds Extremities: no cyanosis Laboratory Tests Test 10/31/18 05:45 White Blood Count 5.1 K/UL (4.8-10.8) Red Blood Count 5.22 M/UL (4.70-6.10) Hemoglobin 14.3 G/DL (14.2-18.0) Hematocrit 43.9 % (42.0-52.0) Mean Corpuscular Volume 84 FL (80-99) Mean Corpuscular Hemoglobin 27.4 PG (27.0-31.0) Mean Corpuscular Hemoglobin Concent 32.6 G/DL (32.0-36.0) Red Cell Distribution Width 13.8 % (11.6-14.8) Platelet Count 101 K/UL (150-450) L Mean Platelet Volume 9.0 FL (6.5-10.1) Neutrophils (%) (Auto) 59.7 % (45.0-75.0) Lymphocytes (%) (Auto) 25.2 % (20.0-45.0) Monocytes (%) (Auto) 11.3 % (1.0-10.0) H Eosinophils (%) (Auto) 3.3 % (0.0-3.0) H Basophils (%) (Auto) 0.6 % (0.0-2.0) Sodium Level 140 MMOL/L (136-145) Potassium Level 4.1 MMOL/L (3.5-5.1) Chloride Level 106 MMOL/L (98-107) Carbon Dioxide Level 25 MMOL/L (21-32) Anion Gap 9 mmol/L (5-15) Blood Urea Nitrogen 15 mg/dL (7-18) Creatinine 0.9 MG/DL (0.55-1.30) Estimat Glomerular Filtration Rate > 60 mL/min (>60) Glucose Level 113 MG/DL (74-106) H Calcium Level 8.6 MG/DL (8.5-10.1) Plan Problems: (1) Intractable abdominal pain Assessment & Plan: improving US noted CT noted pain resolved -okay for diet -no surgical intervention planned -okay to d/c from surgical standpoint thank you will follow with Rashid Bond Oct 31, 2018 16:41
[2018-10-31] MEDS ORDERED: HYDROcodone/Acetamin 10/325 tab ORAL PRN (17:00)
[2018-10-31] MEDS ORDERED: traMADol 50mg tab ORAL PRN (18:00)
[2018-10-31 20:00] VITALS: BP 136/76
[2018-10-31] MEDS: TraZODone 50mg tab ORAL SCH (20:09)
[2018-10-31] MEDS: oxyCODONE 15mg IR tab ORAL PRN (20:10)
[2018-11-01] VITALS (7 sets, daily range): BP systolic 106–139; BP diastolic 56–86
[2018-11-01] MEDS: oxyCODONE 15mg IR tab ORAL PRN ×2 (04:10→21:40)
[2018-11-01 08:57] LABS: ANION GAP 8 mmol/L (5-15); BLOOD UREA NITROGEN 18 mg/dL (7-18); CALCIUM 8.8 MG/DL (8.5-10.1); CARBON DIOXIDE 27 MMOL/L (21-32); CHLORIDE 107 MMOL/L (98-107); CREATININE 0.9 MG/DL (0.55-1.30); POTASSIUM 3.9 MMOL/L (3.5-5.1); SODIUM 142 MMOL/L (136-145)
[2018-11-01] MEDS: Docusate 100mg cap ORAL SCH ×3 (09:00→17:33)
[2018-11-01] MEDS: Sertraline 50mg tab ORAL SCH (09:01)
[2018-11-01] MEDS: Metoprolol 25mg tab ORAL SCH ×2 (09:01→21:39)
[2018-11-01] MEDS: Tamsulosin 0.4mg cap ORAL SCH ×2 (09:01→17:34)
[2018-11-01 09:13] LABS: BASOPHILS % (AUTO) 0.6 % (0.0-2.0); EOSINOPHILS % (AUTO) 2.8 % (0.0-3.0); HEMATOCRIT 45.5 % (42.0-52.0); HEMOGLOBIN 14.8 G/DL (14.2-18.0); LYMPHOCYTES % (AUTO) 28.8 % (20.0-45.0); MEAN CORPUSCULAR VOLUME 85 FL (80-99); NEUTROPHILS % (AUTO) 59.8 % (45.0-75.0); PLATELET COUNT 117 K/UL (150-450); RED BLOOD COUNT 5.34 M/UL (4.70-6.10); RED CELL DISTRIBUTION WIDTH 14.1 % (11.6-14.8); WHITE BLOOD COUNT 5.4 K/UL (4.8-10.8)
--- NOTE | 2018-11-01 10:30 | Infectious Diseases Prog Note ---
Assessment/Plan Assessment/Plan Assessment/Plan Low grade fever, SP -CXR: No acute process. Borderline cardiomegaly No leukocytosis GIB RLQ pain- 2ry to hepatitis -Abd US: Cholelithiasis with apparent wall thickening measuring 3 - 4 mm. Negative sonographic Cook sign. -CT abd/p : Liver: Fatty and slightly nodular liver. Correlate for cirrhosis. Gallbladder and bile ducts: Cholelithiasis. Elevated LFTs, improving Hx of Hep C,p robable cirrhosis -Hep Serologies p -HIV ab sc and VL neg psychosis HTN prostate surgery laminectomy GERD cholelithiasis duodenal diverticulum constipation BPH MDD rheumatic fever 1990 CVA 2012 with left sided weakness nephrolithiasis renal stent [facility] resident Plan: -Continue to monitor off abx as clinically stable -f/u cx -Monitor CBC/C MP, temperatures -f/u hep serologies -GI, Sx f/u Thank you for this consultation. Will continue to follow along with you. Discussed with RN. Subjective Allergies: Coded Allergies: ACETAMINOPHEN (Verified Allergy, Unknown, 08/28/18) ASPIRIN (Verified Allergy, Unknown, 08/28/18) KETOROLAC (Verified Allergy, Unknown, 08/28/18) NSAIDS (NON-STEROIDAL ANTI-INFLAMMA (Verified Allergy, Unknown, 09/09/18) Subjective afebrile no leukocytosis hep panel pending Objective Vital Signs Last 24 Hour Vital Signs Date Time Temp Pulse Resp B/P (MAP) Pulse Ox O2 Delivery O2 Flow Rate FiO2 11/01/18 09:01 71 139/86 11/01/18 09:00 Room Air 11/01/18 07:57 97.2 71 20 139/86 (103) 96 11/01/18 04:00 96.9 57 18 112/59 (76) 11/01/18 00:00 96.9 61 17 106/56 (73) 94 10/31/18 21:00 Room Air 10/31/18 20:09 80 136/76 10/31/18 20:00 96.4 80 16 136/76 (96) 10/31/18 16:00 97.8 74 20 118/79 (92) 98 10/31/18 12:00 98.0 76 20 116/77 (90) 97 Height (Feet): 6 Height (Inches): 4.00 Weight (Pounds): 288 Objective GENERAL: Calm in bed, oriented x2, slight distress secondary to abdominal pain. CARDIOVASCULAR: No murmur. LUNGS: Distant and clear. ABDOMEN: Bowel sound positive. Slightly tender. No guarding. No rigidity. No rebound. EXTREMITIES: No cyanosis, clubbing, or edema. NEUROLOGIC: The patient moves all extremities, slightly weak. Laboratory Tests Test 11/01/18 07:44 White Blood Count 5.4 K/UL (4.8-10.8) Red Blood Count 5.34 M/UL (4.70-6.10) Hemoglobin 14.8 G/DL (14.2-18.0) Hematocrit 45.5 % (42.0-52.0) Mean Corpuscular Volume 85 FL (80-99) Mean Corpuscular Hemoglobin 27.7 PG (27.0-31.0) Mean Corpuscular Hemoglobin Concent 32.5 G/DL (32.0-36.0) Red Cell Distribution Width 14.1 % (11.6-14.8) Platelet Count 117 K/UL (150-450) L Mean Platelet Volume 9.4 FL (6.5-10.1) Neutrophils (%) (Auto) 59.8 % (45.0-75.0) Lymphocytes (%) (Auto) 28.8 % (20.0-45.0) Monocytes (%) (Auto) 8.0 % (1.0-10.0) Eosinophils (%) (Auto) 2.8 % (0.0-3.0) Basophils (%) (Auto) 0.6 % (0.0-2.0) Sodium Level 142 MMOL/L (136-145) Potassium Level 3.9 MMOL/L (3.5-5.1) Chloride Level 107 MMOL/L (98-107) Carbon Dioxide Level 27 MMOL/L (21-32) Anion Gap 8 mmol/L (5-15) Blood Urea Nitrogen 18 mg/dL (7-18) Creatinine 0.9 MG/DL (0.55-1.30) Estimat Glomerular Filtration Rate > 60 mL/min (>60) Glucose Level 106 MG/DL (74-106) Calcium Level 8.8 MG/DL (8.5-10.1) Current Medications Medications (Trade) Dose Ordered Sig/Hugo Route PRN Reason Start Time Stop Time Status Last Admin Dose Admin Al Hydroxide/Mg Hydroxide (Mylanta II) 30 ml Q6H PRN ORAL dyspepsia 10/23/18 14:50 11/22/18 14:49 Aripiprazole (Abilify) 5 mg BEDTIME ORAL 10/23/18 21:00 11/22/18 20:59 10/31/18 20:08 Carisoprodol (Soma) 350 mg THREE TIMES A DAY ORAL 10/25/18 18:00 11/22/18 21:59 11/01/18 09:02 Dextrose (Dextrose 50%) 25 ml Q30M PRN IV Hypoglycemia 10/23/18 14:51 11/22/18 14:50 Dextrose (Dextrose 50%) 50 ml Q30M PRN IV Hypoglycemia 10/23/18 14:51 11/22/18 14:50 Diphenhydramine HCl (Benadryl) 25 mg Q6H PRN ORAL Itching/Pruritis 10/23/18 14:50 11/22/18 14:49 10/24/18 06:40 Docusate Sodium (Colace) 100 mg TID ORAL 10/25/18 18:00 11/22/18 20:59 10/31/18 09:04 Famotidine (Pepcid) 20 mg Q12HR ORAL 10/28/18 09:00 11/27/18 08:59 11/01/18 09:01 Gabapentin (Neurontin) 600 mg THREE TIMES A DAY ORAL 10/23/18 18:00 11/22/18 17:59 11/01/18 09:01 Lorazepam (Ativan 2mg/ml 1ml) 0.5 mg Q4H PRN IV For Anxiety 10/30/18 14:30 11/06/18 14:29 Magnesium Hydroxide (Mom) 30 ml HSPRN PRN ORAL Constipation 10/23/18 21:00 11/22/18 20:59 Metoprolol Tartrate (Lopressor) 25 mg EVERY 12 HOURS ORAL 10/23/18 21:00 11/22/18 20:59 11/01/18 09:01 Ondansetron HCl (Zofran) 4 mg Q6H PRN IVP Nausea & Vomiting 10/23/18 14:50 11/22/18 14:49 Oxycodone HCl (Roxicodone) 30 mg Q8H PRN ORAL Mod-severe pain 4-10 10/31/18 19:45 11/07/18 19:44 11/01/18 04:10 Sertraline HCl (Zoloft) 50 mg DAILY ORAL 10/24/18 09:00 11/23/18 08:59 11/01/18 09:01 Tamsulosin HCl (Flomax) 0.4 mg BID ORAL 10/23/18 18:00 11/22/18 17:59 11/01/18 09:01 Trazodone HCl (Desyrel) 50 mg BEDTIME ORAL 10/23/18 21:00 11/22/18 20:59 10/31/18 20:09 Nesha Park M.D. Nov 01, 2018 10:30
--- NOTE | 2018-11-01 10:46 | GI Progress Note ---
Assessment/Plan Problems: (1) Diarrhea ICD Codes: R19.7 - Diarrhea, unspecified SNOMED: 89007232 (2) Psychosis ICD Codes: F29 - Unspecified psychosis not due to a substance or known physiological condition SNOMED: 60861649 (3) Depressed ICD Codes: F32.9 - Major depressive disorder, single episode, unspecified SNOMED: 70949263 (4) Cirrhosis ICD Codes: K74.60 - Unspecified cirrhosis of liver SNOMED: 88764387 (5) Lower GI bleed ICD Codes: K92.2 - Gastrointestinal hemorrhage, unspecified SNOMED: 18555444 Status: stable Status Narrative Discussed with Dr. Ramos. Assessment/Plan colonoscopy cancelled, patient unable to tolerate prep given no anemia and no recurrent bleed, will follow up as an outpatient KUB for abdominal distention >> unremarkable advance diet titrate bowel regime prn transfusion possible history of Hep C cirrhosis, fu labs pain mgmt zofran prn fu labs outpatient GI procedures The patient was seen and examined at bedside and all new and available data was reviewed in the patients chart. I agree with the above findings, impression and plan. (Patient seen earlier today. Signature stamp does not reflect patient encounter time.). - Arthur Ramos MD Subjective Subjective abdominal pain abdominal distention improved Diarrhea is improved Objective Last 24 Hour Vital Signs Date Time Temp Pulse Resp B/P (MAP) Pulse Ox O2 Delivery O2 Flow Rate FiO2 11/01/18 09:01 71 139/86 11/01/18 09:00 Room Air 11/01/18 07:57 97.2 71 20 139/86 (103) 96 11/01/18 04:00 96.9 57 18 112/59 (76) 11/01/18 00:00 96.9 61 17 106/56 (73) 94 10/31/18 21:00 Room Air 10/31/18 20:09 80 136/76 10/31/18 20:00 96.4 80 16 136/76 (96) 10/31/18 16:00 97.8 74 20 118/79 (92) 98 10/31/18 12:00 98.0 76 20 116/77 (90) 97 Intake and Output 10/31/18 11/01/18 19:00 07:00 Intake Total 690 ml Output Total 1100 ml 550 ml Balance -410 ml -550 ml Intake Oral 690 ml Output Urine Total 1100 ml 550 ml # Voids 3 # Bowel Movements 3 Laboratory Tests Test 11/01/18 07:44 White Blood Count 5.4 K/UL (4.8-10.8) Red Blood Count 5.34 M/UL (4.70-6.10) Hemoglobin 14.8 G/DL (14.2-18.0) Hematocrit 45.5 % (42.0-52.0) Mean Corpuscular Volume 85 FL (80-99) Mean Corpuscular Hemoglobin 27.7 PG (27.0-31.0) Mean Corpuscular Hemoglobin Concent 32.5 G/DL (32.0-36.0) Red Cell Distribution Width 14.1 % (11.6-14.8) Platelet Count 117 K/UL (150-450) L Mean Platelet Volume 9.4 FL (6.5-10.1) Neutrophils (%) (Auto) 59.8 % (45.0-75.0) Lymphocytes (%) (Auto) 28.8 % (20.0-45.0) Monocytes (%) (Auto) 8.0 % (1.0-10.0) Eosinophils (%) (Auto) 2.8 % (0.0-3.0) Basophils (%) (Auto) 0.6 % (0.0-2.0) Sodium Level 142 MMOL/L (136-145) Potassium Level 3.9 MMOL/L (3.5-5.1) Chloride Level 107 MMOL/L (98-107) Carbon Dioxide Level 27 MMOL/L (21-32) Anion Gap 8 mmol/L (5-15) Blood Urea Nitrogen 18 mg/dL (7-18) Creatinine 0.9 MG/DL (0.55-1.30) Estimat Glomerular Filtration Rate > 60 mL/min (>60) Glucose Level 106 MG/DL (74-106) Calcium Level 8.8 MG/DL (8.5-10.1) Height (Feet): 6 Height (Inches): 4.00 Weight (Pounds): 288 General Appearance: WD/WN, no apparent distress, alert Cardiovascular: normal rate Respiratory/Chest: normal breath sounds, no respiratory distress Abdominal Exam: normal bowel sounds, non tender, soft Extremities: normal range of motion, non-tender Rouse,Jalyn-Abhinav MARINE PIPEFITTER Nov 01, 2018 10:46
--- NOTE | 2018-11-01 12:56 | General Surgery Progress Note ---
General Surgery-Progress Note Subjective Symptoms: improved, tolerating diet, passing flatus Additional Comments no acute events. comfortable. Objective Last 24 Hour Vital Signs Date Time Temp Pulse Resp B/P (MAP) Pulse Ox O2 Delivery O2 Flow Rate FiO2 11/01/18 11:53 97.8 62 20 131/65 (87) 95 11/01/18 09:01 71 139/86 11/01/18 09:00 Room Air 11/01/18 07:57 97.2 71 20 139/86 (103) 96 11/01/18 04:00 96.9 57 18 112/59 (76) 11/01/18 00:00 96.9 61 17 106/56 (73) 94 10/31/18 21:00 Room Air 10/31/18 20:09 80 136/76 10/31/18 20:00 96.4 80 16 136/76 (96) 10/31/18 16:00 97.8 74 20 118/79 (92) 98 I&O Intake and Output 10/31/18 11/01/18 19:00 07:00 Intake Total 690 ml Output Total 1100 ml 550 ml Balance -410 ml -550 ml Intake Oral 690 ml Output Urine Total 1100 ml 550 ml # Voids 3 # Bowel Movements 3 Drains: none Cardiovascular: RSR Respiratory: clear Abdomen: soft, flat, non-tender, present bowel sounds Extremities: no tenderness, no cyanosis Laboratory Tests Test 11/01/18 07:44 White Blood Count 5.4 K/UL (4.8-10.8) Red Blood Count 5.34 M/UL (4.70-6.10) Hemoglobin 14.8 G/DL (14.2-18.0) Hematocrit 45.5 % (42.0-52.0) Mean Corpuscular Volume 85 FL (80-99) Mean Corpuscular Hemoglobin 27.7 PG (27.0-31.0) Mean Corpuscular Hemoglobin Concent 32.5 G/DL (32.0-36.0) Red Cell Distribution Width 14.1 % (11.6-14.8) Platelet Count 117 K/UL (150-450) L Mean Platelet Volume 9.4 FL (6.5-10.1) Neutrophils (%) (Auto) 59.8 % (45.0-75.0) Lymphocytes (%) (Auto) 28.8 % (20.0-45.0) Monocytes (%) (Auto) 8.0 % (1.0-10.0) Eosinophils (%) (Auto) 2.8 % (0.0-3.0) Basophils (%) (Auto) 0.6 % (0.0-2.0) Sodium Level 142 MMOL/L (136-145) Potassium Level 3.9 MMOL/L (3.5-5.1) Chloride Level 107 MMOL/L (98-107) Carbon Dioxide Level 27 MMOL/L (21-32) Anion Gap 8 mmol/L (5-15) Blood Urea Nitrogen 18 mg/dL (7-18) Creatinine 0.9 MG/DL (0.55-1.30) Estimat Glomerular Filtration Rate > 60 mL/min (>60) Glucose Level 106 MG/DL (74-106) Calcium Level 8.8 MG/DL (8.5-10.1) Plan Problems: (1) Intractable abdominal pain Assessment & Plan: improving US noted CT noted pain resolved -okay for diet -no surgical intervention planned -okay to d/c from surgical standpoint thank you will follow with Rashid Bond Nov 01, 2018 12:56
--- NOTE | 2018-11-01 14:15 | Progress Note ---
DATE: 11/01/2018 SUBJECTIVE: This is a 52-year-old male patient, admitted secondary to flank pain and GI bleeding. This patient also has altered mental status and confusion, worsened by stress of his medical illness that is why he does require inpatient treatment at this time. This patient has flank pain and GI bleeding causing him to have a decline in his cognition below his baseline . This patient does have some mood lability and confusion, worsened by stress of his medical illness. That is why there is a daily psychiatric consultation. MENTAL STATUS EXAMINATION: This is a 52-year-old male. Appearance is disheveled. Attitude, irritable and agitated. Affect, guarded and restricted. Intellect poor. Mood depressed and anxious. Motor activity, psychomotor agitation. Attention is poor. Orientation x2. Speech is low volume and slurred. Thought process, disorganized, illogical. Insight and judgment are poor. DIAGNOSIS: Paranoid schizophrenia with acute exacerbation. PLAN: Treat him with Abilify 5 mg nightly, Neurontin 600 mg two times a day, and Zoloft 50 mg daily. Provided him with 20 minutes of supportive psychotherapy and encouraged him to interact appropriately. Provided 20 minutes of cognitive behavioral therapy to help this patient identify his automatic negative thoughts and convert those negative thoughts to more positive thoughts to reduce depression, anxiety, suicidality, cognitive behavioral therapy and also more adaptive behavioral pattern. Chart is reviewed and discussed with staff. Seen and assessed at bedside. . Twenty minutes of cognitive behavioral therapy provided. Amy Benites M.D. DR: SEVERINO JOB#: [id number] CC:
--- NOTE | 2018-11-01 14:37 | General Progress Note ---
Assessment/Plan Problem List: (1) UTI (urinary tract infection) ICD Codes: N39.0 - Urinary tract infection, site not specified SNOMED: 29830734 (2) Depressed ICD Codes: F32.9 - Major depressive disorder, single episode, unspecified SNOMED: 82401584 (3) Cirrhosis ICD Codes: K74.60 - Unspecified cirrhosis of liver SNOMED: 45914600 (4) Thrombocytopenia ICD Codes: D69.6 - Thrombocytopenia, unspecified SNOMED: 926181559 (5) Intractable abdominal pain ICD Codes: R10.9 - Unspecified abdominal pain SNOMED: 57430378, 917680554 (6) Lower GI bleed ICD Codes: K92.2 - Gastrointestinal hemorrhage, unspecified SNOMED: 28916364 (7) Psychosis ICD Codes: F29 - Unspecified psychosis not due to a substance or known physiological condition SNOMED: 80802427 (8) History of CVA (cerebrovascular accident) ICD Codes: Z86.73 - Personal history of transient ischemic attack (TIA), and cerebral infarction without residual deficits SNOMED: 170741606 Status: unchanged Assessment/Plan ot pt diet abx per id gi/heme f/u dc if clear Subjective Constitutional: Reports: weakness Allergies: Coded Allergies: ACETAMINOPHEN (Verified Allergy, Unknown, 08/28/18) ASPIRIN (Verified Allergy, Unknown, 08/28/18) KETOROLAC (Verified Allergy, Unknown, 08/28/18) NSAIDS (NON-STEROIDAL ANTI-INFLAMMA (Verified Allergy, Unknown, 09/09/18) All Systems: reviewed and negative except above Subjective sleepy in bed Objective Last 24 Hour Vital Signs Date Time Temp Pulse Resp B/P (MAP) Pulse Ox O2 Delivery O2 Flow Rate FiO2 11/01/18 11:53 97.8 62 20 131/65 (87) 95 11/01/18 09:01 71 139/86 11/01/18 09:00 Room Air 11/01/18 07:57 97.2 71 20 139/86 (103) 96 11/01/18 04:00 96.9 57 18 112/59 (76) 11/01/18 00:00 96.9 61 17 106/56 (73) 94 10/31/18 21:00 Room Air 10/31/18 20:09 80 136/76 10/31/18 20:00 96.4 80 16 136/76 (96) 10/31/18 16:00 97.8 74 20 118/79 (92) 98 Intake and Output 10/31/18 11/01/18 18:59 06:59 Intake Total 690 ml Output Total 1100 ml 550 ml Balance -410 ml -550 ml Intake Oral 690 ml Output Urine Total 1100 ml 550 ml # Voids 3 # Bowel Movements 3 Laboratory Tests 11/01/18 07:44: White Blood Count 5.4, Red Blood Count 5.34, Hemoglobin 14.8, Hematocrit 45.5, Mean Corpuscular Volume 85, Mean Corpuscular Hemoglobin 27.7, Mean Corpuscular Hemoglobin Concent 32.5, Red Cell Distribution Width 14.1, Platelet Count 117L, Mean Platelet Volume 9.4, Neutrophils (%) (Auto) 59.8, Lymphocytes (%) (Auto) 28.8, Monocytes (%) (Auto) 8.0, Eosinophils (%) (Auto) 2.8, Basophils (%) (Auto ) 0.6, Sodium Level 142, Potassium Level 3.9, Chloride Level 107, Carbon Dioxide Level 27, Anion Gap 8, Blood Urea Nitrogen 18, Creatinine 0.9, Estimat Glomerular Filtration Rate > 60, Glucose Level 106, Calcium Level 8.8 Height (Feet): 6 Height (Inches): 4.00 Weight (Pounds): 288 General Appearance: lethargic EENT: normal ENT inspection Neck: normal alignment Cardiovascular: normal peripheral pulses, normal rate, regular rhythm Respiratory/Chest: chest wall non-tender, lungs clear, normal breath sounds Abdomen: normal bowel sounds, non tender, soft Extremities: normal inspection Edema: no edema noted Arm (L), no edema noted Arm (R), no edema noted Leg (L), no edema noted Leg (R), no edema noted Pedal (L), no edema noted Pedal (R), no edema noted Generalized Neurologic: motor weakness Skin: normal pigmentation, warm/dry Roberto Georges DO Nov 01, 2018 14:37
--- NOTE | 2018-11-01 15:32 | Pulmonology Progress Note ---
Assessment/Plan Problems: (1) UTI (urinary tract infection) (2) Lower GI bleed (3) History of urethral stent (4) History of CVA (cerebrovascular accident) (5) Psychosis (6) Intractable abdominal pain (7) CAD (coronary artery disease) (8) Nephrolithiasis (9) Cirrhosis Assessment/Plan all reviewed no new complains symptomatic treatment check labs f/u liver enzymes monitor off abx dc planning Subjective ROS Limited/Unobtainable: No Constitutional: Reports: no symptoms HEENT: Repors: no symptoms Respiratory: Reports: no symptoms Allergies: Coded Allergies: ACETAMINOPHEN (Verified Allergy, Unknown, 08/28/18) ASPIRIN (Verified Allergy, Unknown, 08/28/18) KETOROLAC (Verified Allergy, Unknown, 08/28/18) NSAIDS (NON-STEROIDAL ANTI-INFLAMMA (Verified Allergy, Unknown, 09/09/18) Objective Last 24 Hour Vital Signs Date Time Temp Pulse Resp B/P (MAP) Pulse Ox O2 Delivery O2 Flow Rate FiO2 11/01/18 11:53 97.8 62 20 131/65 (87) 95 11/01/18 09:01 71 139/86 11/01/18 09:00 Room Air 11/01/18 07:57 97.2 71 20 139/86 (103) 96 11/01/18 04:00 96.9 57 18 112/59 (76) 11/01/18 00:00 96.9 61 17 106/56 (73) 94 10/31/18 21:00 Room Air 10/31/18 20:09 80 136/76 10/31/18 20:00 96.4 80 16 136/76 (96) 10/31/18 16:00 97.8 74 20 118/79 (92) 98 Intake and Output 10/31/18 11/01/18 18:59 06:59 Intake Total 690 ml Output Total 1100 ml 550 ml Balance -410 ml -550 ml Intake Oral 690 ml Output Urine Total 1100 ml 550 ml # Voids 3 # Bowel Movements 3 Objective General Appearance: WD/WN HEENT: normocephalic Respiratory/Chest: chest wall non-tender, lungs clear, normal breath sounds Cardiovascular: normal peripheral pulses, normal rate Abdomen: normal bowel sounds, soft, non tender Genitourinary: normal external genitalia Extremities: no clubbing Skin: no rash Laboratory Tests 11/01/18 07:44: White Blood Count 5.4, Red Blood Count 5.34, Hemoglobin 14.8, Hematocrit 45.5, Mean Corpuscular Volume 85, Mean Corpuscular Hemoglobin 27.7, Mean Corpuscular Hemoglobin Concent 32.5, Red Cell Distribution Width 14.1, Platelet Count 117L, Mean Platelet Volume 9.4, Neutrophils (%) (Auto) 59.8, Lymphocytes (%) (Auto) 28.8, Monocytes (%) (Auto) 8.0, Eosinophils (%) (Auto) 2.8, Basophils (%) (Auto ) 0.6, Sodium Level 142, Potassium Level 3.9, Chloride Level 107, Carbon Dioxide Level 27, Anion Gap 8, Blood Urea Nitrogen 18, Creatinine 0.9, Estimat Glomerular Filtration Rate > 60, Glucose Level 106, Calcium Level 8.8 Current Medications Medications (Trade) Dose Ordered Sig/Hugo Route PRN Reason Start Time Stop Time Status Last Admin Dose Admin Al Hydroxide/Mg Hydroxide (Mylanta II) 30 ml Q6H PRN ORAL dyspepsia 10/23/18 14:50 11/22/18 14:49 Aripiprazole (Abilify) 5 mg BEDTIME ORAL 10/23/18 21:00 11/22/18 20:59 10/31/18 20:08 Carisoprodol (Soma) 350 mg THREE TIMES A DAY ORAL 10/25/18 18:00 11/22/18 21:59 11/01/18 13:37 Dextrose (Dextrose 50%) 25 ml Q30M PRN IV Hypoglycemia 10/23/18 14:51 11/22/18 14:50 Dextrose (Dextrose 50%) 50 ml Q30M PRN IV Hypoglycemia 10/23/18 14:51 11/22/18 14:50 Diphenhydramine HCl (Benadryl) 25 mg Q6H PRN ORAL Itching/Pruritis 10/23/18 14:50 11/22/18 14:49 10/24/18 06:40 Docusate Sodium (Colace) 100 mg TID ORAL 10/25/18 18:00 11/22/18 20:59 10/31/18 09:04 Famotidine (Pepcid) 20 mg Q12HR ORAL 10/28/18 09:00 11/27/18 08:59 11/01/18 09:01 Gabapentin (Neurontin) 600 mg THREE TIMES A DAY ORAL 10/23/18 18:00 11/22/18 17:59 11/01/18 13:37 Lorazepam (Ativan 2mg/ml 1ml) 0.5 mg Q4H PRN IV For Anxiety 10/30/18 14:30 11/06/18 14:29 Magnesium Hydroxide (Mom) 30 ml HSPRN PRN ORAL Constipation 10/23/18 21:00 11/22/18 20:59 Metoprolol Tartrate (Lopressor) 25 mg EVERY 12 HOURS ORAL 10/23/18 21:00 11/22/18 20:59 11/01/18 09:01 Ondansetron HCl (Zofran) 4 mg Q6H PRN IVP Nausea & Vomiting 10/23/18 14:50 11/22/18 14:49 Oxycodone HCl (Roxicodone) 30 mg Q8H PRN ORAL Mod-severe pain 4-10 10/31/18 19:45 11/07/18 19:44 11/01/18 04:10 Sertraline HCl (Zoloft) 50 mg DAILY ORAL 10/24/18 09:00 11/23/18 08:59 11/01/18 09:01 Tamsulosin HCl (Flomax) 0.4 mg BID ORAL 10/23/18 18:00 11/22/18 17:59 11/01/18 09:01 Trazodone HCl (Desyrel) 50 mg BEDTIME ORAL 10/23/18 21:00 11/22/18 20:59 10/31/18 20:09 Lexy Christiansen MD Nov 01, 2018 15:32
--- NOTE | 2018-11-01 18:37 | General Progress Note ---
Assessment/Plan Assessment/Plan # Thrombocytopenia due to underlying hep C, stable approx 100k --> Cont to monitor and tend plt count for stability/improvement --> Hep panel in past showed hep c. HIV negative --> US abd does not cirrhosis or hsm --> Peripheral smear ordered to evaluate for blasts /schistocytes and none noted --> abx and other meds have been reviewed --> ok for ppx if plt >50k w/ wither heparin or lovenox --> Trend 109k--> 102k--> 77k-->68k-->80k-->101k-->117k # Leukopenia - due to underlying hep C --> Continue to monitor for improvement --> US abd does not show cirrhosis or hsm --> o/p eradication as per gi # GI bleed with blood stool --> h/h stable, therefore outpatient eval # Abdominal pain --> Pain has improved --> with blood emesis, outpatient w/u --> surgery was consulted, no surgery intervention planned. # History of CVA (cerebrovascular accident) # Gallstones GREATLY APPRECIATE CONSULTATION. Subjective HEENT: Denies: no symptoms, eye pain, blurred vision, tearing, double vision, ear pain, ear discharge, nose pain, nose congestion, throat pain, throat swelling, mouth pain, mouth swelling, other Cardiovascular: Denies: no symptoms, chest pain, edema, irregular heart rate, lightheadedness, palpitations, syncope, other Respiratory: Denies: no symptoms, cough, orthopnea, shortness of breath, SOB with excertion, SOB at rest, sputum, stridor, wheezing, other Gastrointestinal/Abdominal: Denies: no symptoms, abdomen distended, abdominal pain, black stools, tarry stools, blood in stool, constipated, diarrhea, difficulty swallowing, nausea, poor appetite, poor fluid intake, rectal bleeding , vomiting, other Genitourinary: Denies: no symptoms, burning, discharge, frequency, flank pain, hematuria, incontinence, pain, urgency, other Neurologic/Psychiatric: Denies: no symptoms, anxiety, depressed, emotional problems, headache, numbness, paresthesia, pre-existing deficit, seizure, tingling, tremors, weakness, other Hematologic/Lymphatic: Reports: no symptoms Allergies: Coded Allergies: ACETAMINOPHEN (Verified Allergy, Unknown, 08/28/18) ASPIRIN (Verified Allergy, Unknown, 08/28/18) KETOROLAC (Verified Allergy, Unknown, 08/28/18) NSAIDS (NON-STEROIDAL ANTI-INFLAMMA (Verified Allergy, Unknown, 09/09/18) Subjective Pt awake and alert. No acute events. No abd pain. cbc has been reviewed Objective Last 24 Hour Vital Signs Date Time Temp Pulse Resp B/P (MAP) Pulse Ox O2 Delivery O2 Flow Rate FiO2 11/01/18 16:00 98.1 69 18 136/68 (90) 95 11/01/18 11:53 97.8 62 20 131/65 (87) 95 11/01/18 09:01 71 139/86 11/01/18 09:00 Room Air 11/01/18 07:57 97.2 71 20 139/86 (103) 96 11/01/18 04:00 96.9 57 18 112/59 (76) 11/01/18 00:00 96.9 61 17 106/56 (73) 94 10/31/18 21:00 Room Air 10/31/18 20:09 80 136/76 10/31/18 20:00 96.4 80 16 136/76 (96) Intake and Output 10/31/18 11/01/18 18:59 06:59 Intake Total 690 ml Output Total 1100 ml 550 ml Balance -410 ml -550 ml Intake Oral 690 ml Output Urine Total 1100 ml 550 ml # Voids 3 # Bowel Movements 3 Laboratory Tests 11/01/18 07:44: White Blood Count 5.4, Red Blood Count 5.34, Hemoglobin 14.8, Hematocrit 45.5, Mean Corpuscular Volume 85, Mean Corpuscular Hemoglobin 27.7, Mean Corpuscular Hemoglobin Concent 32.5, Red Cell Distribution Width 14.1, Platelet Count 117L, Mean Platelet Volume 9.4, Neutrophils (%) (Auto) 59.8, Lymphocytes (%) (Auto) 28.8, Monocytes (%) (Auto) 8.0, Eosinophils (%) (Auto) 2.8, Basophils (%) (Auto ) 0.6, Sodium Level 142, Potassium Level 3.9, Chloride Level 107, Carbon Dioxide Level 27, Anion Gap 8, Blood Urea Nitrogen 18, Creatinine 0.9, Estimat Glomerular Filtration Rate > 60, Glucose Level 106, Calcium Level 8.8 Height (Feet): 6 Height (Inches): 4.00 Weight (Pounds): 288 General Appearance: no apparent distress EENT: TMs normal Neck: supple Cardiovascular: regular rhythm Respiratory/Chest: lungs clear Abdomen: no mass Extremities: non-tender Edema: 1+ Leg (L), 1+ Leg (R) Edema: mild edema Neurologic: alert Skin: normal pigmentation Objective General Appearance: normal inspection, well appearing, no apparent distress Head: atraumatic ENT: normal ENT inspection, hearing grossly normal, normal voice Neck: normal inspection, full range of motion, supple, no bony tend Respiratory: normal inspection, lungs clear, normal breath sounds, no respiratory distress, no retraction, no wheezing Cardiovascular #1: regular rate, rhythm, no edema Gastrointestinal: normal inspection, normal bowel sounds, non tender, soft, no guarding, no hernia Genitourinary: no CVA tenderness Musculoskeletal: normal inspection, back normal, normal range of motion Neurologic: normal inspection, alert, responsive, speech normal Psychiatric: normal inspection, judgement/insight normal, mood/affect normal Skin: normal inspection, normal color, no rash Bebo Agustin MD Nov 01, 2018 18:37
[2018-11-01] MEDS: TraZODone 50mg tab ORAL SCH (21:39)
[2018-11-02] VITALS: BP 124/59
[2018-11-02 04:00] VITALS: BP 126/60
[2018-11-02 07:54] LABS: ALANINE AMINOTRANSFERASE 100 U/L (12-78); ALBUMIN/GLOBULIN RATIO 0.5 (1.0-2.7); ALKALINE PHOSPHATASE 86 U/L (46-116); ANION GAP 11 mmol/L (5-15); ASPARTATE AMINO TRANSFERASE 75 U/L (15-37); BILIRUBIN,TOTAL 0.4 MG/DL (0.2-1.0); BLOOD UREA NITROGEN 18 mg/dL (7-18); CALCIUM 8.7 MG/DL (8.5-10.1); CARBON DIOXIDE 24 MMOL/L (21-32); CHLORIDE 107 MMOL/L (98-107); CREATININE 0.9 MG/DL (0.55-1.30); POTASSIUM 3.8 MMOL/L (3.5-5.1); SODIUM 142 MMOL/L (136-145)
[2018-11-02 08:00] VITALS: BP 121/76
[2018-11-02] MEDS: Tamsulosin 0.4mg cap ORAL SCH ×2 (08:42→17:37)
[2018-11-02] MEDS: Sertraline 50mg tab ORAL SCH (08:43)
[2018-11-02] MEDS: Docusate 100mg cap ORAL SCH ×3 (08:43→17:35)
[2018-11-02] MEDS: Metoprolol 25mg tab ORAL SCH ×2 (08:43→20:13)
[2018-11-02] MEDS: oxyCODONE 15mg IR tab ORAL PRN ×2 (09:49→17:38)
--- NOTE | 2018-11-02 10:48 | Infectious Diseases Prog Note ---
Assessment/Plan Assessment/Plan Assessment/Plan Low grade fever, SP -CXR: No acute process. Borderline cardiomegaly No leukocytosis GIB RLQ pain- 2ry to hepatitis -Abd US: Cholelithiasis with apparent wall thickening measuring 3 - 4 mm. Negative sonographic Cook sign. -CT abd/p : Liver: Fatty and slightly nodular liver. Correlate for cirrhosis. Gallbladder and bile ducts: Cholelithiasis. Elevated LFTs, improving Hx of Hep C,p robable cirrhosis -Hep Serologies p -HIV ab sc and VL neg psychosis HTN prostate surgery laminectomy GERD cholelithiasis duodenal diverticulum constipation BPH MDD rheumatic fever 1990 CVA 2012 with left sided weakness nephrolithiasis renal stent senior care resident Plan: -Continue to monitor off abx as clinically stable -f/u cx -Monitor CBC/C MP, temperatures -f/u hep serologies -GI, Sx f/u Thank you for this consultation. Will continue to follow along with you. Discussed with RN. Subjective Allergies: Coded Allergies: ACETAMINOPHEN (Verified Allergy, Unknown, 08/28/18) ASPIRIN (Verified Allergy, Unknown, 08/28/18) KETOROLAC (Verified Allergy, Unknown, 08/28/18) NSAIDS (NON-STEROIDAL ANTI-INFLAMMA (Verified Allergy, Unknown, 09/09/18) Subjective afebrile no leukocytosis hep panel pending Objective Vital Signs Last 24 Hour Vital Signs Date Time Temp Pulse Resp B/P (MAP) Pulse Ox O2 Delivery O2 Flow Rate FiO2 11/02/18 09:00 Room Air 11/02/18 08:43 78 121/76 11/02/18 08:00 98.1 76 19 121/76 (91) 97 11/02/18 04:00 99.2 78 18 126/60 (82) 93 11/02/18 00:00 98.6 79 18 124/59 (80) 94 11/01/18 21:39 78 136/71 11/01/18 21:35 78 136/71 (92) 11/01/18 21:00 Room Air 11/01/18 20:00 98.8 76 18 119/62 (81) 93 11/01/18 16:00 98.1 69 18 136/68 (90) 95 11/01/18 11:53 97.8 62 20 131/65 (87) 95 Height (Feet): 6 Height (Inches): 4.00 Weight (Pounds): 288 Objective GENERAL: Calm in bed, oriented x2, slight distress secondary to abdominal pain. CARDIOVASCULAR: No murmur. LUNGS: Distant and clear. ABDOMEN: Bowel sound positive. Slightly tender. No guarding. No rigidity. No rebound. EXTREMITIES: No cyanosis, clubbing, or edema. NEUROLOGIC: The patient moves all extremities, slightly weak. Laboratory Tests Test 11/02/18 06:40 Sodium Level 142 MMOL/L (136-145) Potassium Level 3.8 MMOL/L (3.5-5.1) Chloride Level 107 MMOL/L (98-107) Carbon Dioxide Level 24 MMOL/L (21-32) Anion Gap 11 mmol/L (5-15) Blood Urea Nitrogen 18 mg/dL (7-18) Creatinine 0.9 MG/DL (0.55-1.30) Estimat Glomerular Filtration Rate > 60 mL/min (>60) Glucose Level 136 MG/DL (74-106) H Calcium Level 8.7 MG/DL (8.5-10.1) Total Bilirubin 0.4 MG/DL (0.2-1.0) Aspartate Amino Transf (AST/SGOT) 75 U/L (15-37) H Alanine Aminotransferase (ALT/SGPT) 100 U/L (12-78) H Alkaline Phosphatase 86 U/L (46-116) Total Protein 8.8 G/DL (6.4-8.2) H Albumin 3.0 G/DL (3.4-5.0) L Globulin 5.8 g/dL Albumin/Globulin Ratio 0.5 (1.0-2.7) L Current Medications Medications (Trade) Dose Ordered Sig/Hugo Route PRN Reason Start Time Stop Time Status Last Admin Dose Admin Al Hydroxide/Mg Hydroxide (Mylanta II) 30 ml Q6H PRN ORAL dyspepsia 10/23/18 14:50 11/22/18 14:49 Aripiprazole (Abilify) 5 mg BEDTIME ORAL 10/23/18 21:00 11/22/18 20:59 11/01/18 21:34 Carisoprodol (Soma) 350 mg THREE TIMES A DAY ORAL 10/25/18 18:00 11/22/18 21:59 11/02/18 08:43 Dextrose (Dextrose 50%) 25 ml Q30M PRN IV Hypoglycemia 10/23/18 14:51 11/22/18 14:50 Dextrose (Dextrose 50%) 50 ml Q30M PRN IV Hypoglycemia 10/23/18 14:51 11/22/18 14:50 Diphenhydramine HCl (Benadryl) 25 mg Q6H PRN ORAL Itching/Pruritis 10/23/18 14:50 11/22/18 14:49 10/24/18 06:40 Docusate Sodium (Colace) 100 mg TID ORAL 10/25/18 18:00 11/22/18 20:59 10/31/18 09:04 Famotidine (Pepcid) 20 mg Q12HR ORAL 10/28/18 09:00 11/27/18 08:59 11/02/18 08:43 Gabapentin (Neurontin) 600 mg THREE TIMES A DAY ORAL 10/23/18 18:00 11/22/18 17:59 11/02/18 08:43 Lorazepam (Ativan 2mg/ml 1ml) 0.5 mg Q4H PRN IV For Anxiety 10/30/18 14:30 11/06/18 14:29 Magnesium Hydroxide (Mom) 30 ml HSPRN PRN ORAL Constipation 10/23/18 21:00 11/22/18 20:59 Metoprolol Tartrate (Lopressor) 25 mg EVERY 12 HOURS ORAL 10/23/18 21:00 11/22/18 20:59 11/01/18 21:39 Ondansetron HCl (Zofran) 4 mg Q6H PRN IVP Nausea & Vomiting 10/23/18 14:50 11/22/18 14:49 Oxycodone HCl (Roxicodone) 30 mg Q8H PRN ORAL Mod-severe pain 4-10 10/31/18 19:45 11/07/18 19:44 11/02/18 09:49 Sertraline HCl (Zoloft) 50 mg DAILY ORAL 10/24/18 09:00 11/23/18 08:59 11/02/18 08:43 Tamsulosin HCl (Flomax) 0.4 mg BID ORAL 10/23/18 18:00 11/22/18 17:59 11/02/18 08:42 Trazodone HCl (Desyrel) 50 mg BEDTIME ORAL 10/23/18 21:00 11/22/18 20:59 11/01/18 21:39 Nesha Park M.D. Nov 02, 2018 10:48
[2018-11-02 12:00] VITALS: BP_SYST 105; BP_SYST 121; BP_DIAS 68; BP_DIAS 69
--- NOTE | 2018-11-02 12:40 | General Surgery Progress Note ---
General Surgery-Progress Note Subjective Symptoms: improved, tolerating diet, passing flatus Objective Last 24 Hour Vital Signs Date Time Temp Pulse Resp B/P (MAP) Pulse Ox O2 Delivery O2 Flow Rate FiO2 11/02/18 09:00 Room Air 11/02/18 08:43 78 121/76 11/02/18 08:00 98.1 76 19 121/76 (91) 97 11/02/18 04:00 99.2 78 18 126/60 (82) 93 11/02/18 00:00 98.6 79 18 124/59 (80) 94 11/01/18 21:39 78 136/71 11/01/18 21:35 78 136/71 (92) 11/01/18 21:00 Room Air 11/01/18 20:00 98.8 76 18 119/62 (81) 93 11/01/18 16:00 98.1 69 18 136/68 (90) 95 I&O Intake and Output 11/01/18 11/02/18 19:00 07:00 Intake Total 840 ml Output Total 700 ml 504 ml Balance 140 ml -504 ml Intake Oral 840 ml Output Urine Total 700 ml 500 ml Stool Total 4 ml Drains: none Cardiovascular: RSR Respiratory: clear Abdomen: soft, flat, non-tender, present bowel sounds Extremities: no tenderness, no cyanosis Laboratory Tests Test 11/02/18 06:40 Sodium Level 142 MMOL/L (136-145) Potassium Level 3.8 MMOL/L (3.5-5.1) Chloride Level 107 MMOL/L (98-107) Carbon Dioxide Level 24 MMOL/L (21-32) Anion Gap 11 mmol/L (5-15) Blood Urea Nitrogen 18 mg/dL (7-18) Creatinine 0.9 MG/DL (0.55-1.30) Estimat Glomerular Filtration Rate > 60 mL/min (>60) Glucose Level 136 MG/DL (74-106) H Calcium Level 8.7 MG/DL (8.5-10.1) Total Bilirubin 0.4 MG/DL (0.2-1.0) Aspartate Amino Transf (AST/SGOT) 75 U/L (15-37) H Alanine Aminotransferase (ALT/SGPT) 100 U/L (12-78) H Alkaline Phosphatase 86 U/L (46-116) Total Protein 8.8 G/DL (6.4-8.2) H Albumin 3.0 G/DL (3.4-5.0) L Globulin 5.8 g/dL Albumin/Globulin Ratio 0.5 (1.0-2.7) L Plan Problems: (1) Intractable abdominal pain Assessment & Plan: improving US noted CT noted pain resolved -okay for diet -no surgical intervention planned -okay to d/c from surgical standpoint thank you will follow with Rashid Bond Nov 02, 2018 12:40
--- NOTE | 2018-11-02 12:55 | Pulmonology Progress Note ---
Assessment/Plan Problems: (1) UTI (urinary tract infection) (2) Lower GI bleed (3) History of urethral stent (4) History of CVA (cerebrovascular accident) (5) Psychosis (6) Intractable abdominal pain (7) CAD (coronary artery disease) (8) Nephrolithiasis (9) Cirrhosis Assessment/Plan all reviewed no new complains symptomatic treatment check labs f/u liver enzymes monitor off abx dc planning Subjective ROS Limited/Unobtainable: No Constitutional: Reports: no symptoms HEENT: Repors: no symptoms Respiratory: Reports: no symptoms Allergies: Coded Allergies: ACETAMINOPHEN (Verified Allergy, Unknown, 08/28/18) ASPIRIN (Verified Allergy, Unknown, 08/28/18) KETOROLAC (Verified Allergy, Unknown, 08/28/18) NSAIDS (NON-STEROIDAL ANTI-INFLAMMA (Verified Allergy, Unknown, 09/09/18) Objective Last 24 Hour Vital Signs Date Time Temp Pulse Resp B/P (MAP) Pulse Ox O2 Delivery O2 Flow Rate FiO2 11/02/18 09:00 Room Air 11/02/18 08:43 78 121/76 11/02/18 08:00 98.1 76 19 121/76 (91) 97 11/02/18 04:00 99.2 78 18 126/60 (82) 93 11/02/18 00:00 98.6 79 18 124/59 (80) 94 11/01/18 21:39 78 136/71 11/01/18 21:35 78 136/71 (92) 11/01/18 21:00 Room Air 11/01/18 20:00 98.8 76 18 119/62 (81) 93 11/01/18 16:00 98.1 69 18 136/68 (90) 95 Intake and Output 11/01/18 11/02/18 19:00 07:00 Intake Total 840 ml Output Total 700 ml 504 ml Balance 140 ml -504 ml Intake Oral 840 ml Output Urine Total 700 ml 500 ml Stool Total 4 ml Objective General Appearance: WD/WN HEENT: normocephalic Respiratory/Chest: chest wall non-tender, lungs clear, normal breath sounds Cardiovascular: normal peripheral pulses, normal rate Abdomen: normal bowel sounds, soft, non tender Genitourinary: normal external genitalia Extremities: no clubbing Skin: no rash Laboratory Tests 11/02/18 06:40: Sodium Level 142, Potassium Level 3.8, Chloride Level 107, Carbon Dioxide Level 24, Anion Gap 11, Blood Urea Nitrogen 18, Creatinine 0.9, Estimat Glomerular Filtration Rate > 60, Glucose Level 136H, Calcium Level 8.7, Total Bilirubin 0.4 , Aspartate Amino Transf (AST/SGOT) 75H, Alanine Aminotransferase (ALT/SGPT) 100H, Alkaline Phosphatase 86, Total Protein 8.8H, Albumin 3.0L, Globulin 5.8, Albumin/Globulin Ratio 0.5L Current Medications Medications (Trade) Dose Ordered Sig/Hugo Route PRN Reason Start Time Stop Time Status Last Admin Dose Admin Al Hydroxide/Mg Hydroxide (Mylanta II) 30 ml Q6H PRN ORAL dyspepsia 10/23/18 14:50 11/22/18 14:49 Aripiprazole (Abilify) 5 mg BEDTIME ORAL 10/23/18 21:00 11/22/18 20:59 11/01/18 21:34 Carisoprodol (Soma) 350 mg THREE TIMES A DAY ORAL 10/25/18 18:00 11/22/18 21:59 11/02/18 12:39 Dextrose (Dextrose 50%) 25 ml Q30M PRN IV Hypoglycemia 10/23/18 14:51 11/22/18 14:50 Dextrose (Dextrose 50%) 50 ml Q30M PRN IV Hypoglycemia 10/23/18 14:51 11/22/18 14:50 Diphenhydramine HCl (Benadryl) 25 mg Q6H PRN ORAL Itching/Pruritis 10/23/18 14:50 11/22/18 14:49 10/24/18 06:40 Docusate Sodium (Colace) 100 mg TID ORAL 10/25/18 18:00 11/22/18 20:59 10/31/18 09:04 Famotidine (Pepcid) 20 mg Q12HR ORAL 10/28/18 09:00 11/27/18 08:59 11/02/18 08:43 Gabapentin (Neurontin) 600 mg THREE TIMES A DAY ORAL 10/23/18 18:00 11/22/18 17:59 11/02/18 12:39 Lorazepam (Ativan 2mg/ml 1ml) 0.5 mg Q4H PRN IV For Anxiety 10/30/18 14:30 11/06/18 14:29 Magnesium Hydroxide (Mom) 30 ml HSPRN PRN ORAL Constipation 10/23/18 21:00 11/22/18 20:59 Metoprolol Tartrate (Lopressor) 25 mg EVERY 12 HOURS ORAL 10/23/18 21:00 11/22/18 20:59 11/01/18 21:39 Ondansetron HCl (Zofran) 4 mg Q6H PRN IVP Nausea & Vomiting 10/23/18 14:50 11/22/18 14:49 Oxycodone HCl (Roxicodone) 30 mg Q8H PRN ORAL Mod-severe pain 4-10 10/31/18 19:45 11/07/18 19:44 11/02/18 09:49 Sertraline HCl (Zoloft) 50 mg DAILY ORAL 10/24/18 09:00 11/23/18 08:59 11/02/18 08:43 Tamsulosin HCl (Flomax) 0.4 mg BID ORAL 10/23/18 18:00 11/22/18 17:59 11/02/18 08:42 Trazodone HCl (Desyrel) 50 mg BEDTIME ORAL 10/23/18 21:00 11/22/18 20:59 11/01/18 21:39 Lexy Christiansen MD Nov 02, 2018 12:55
--- NOTE | 2018-11-02 13:43 | General Progress Note ---
Assessment/Plan Problem List: (1) UTI (urinary tract infection) ICD Codes: N39.0 - Urinary tract infection, site not specified SNOMED: 34237998 (2) Depressed ICD Codes: F32.9 - Major depressive disorder, single episode, unspecified SNOMED: 65337257 (3) Cirrhosis ICD Codes: K74.60 - Unspecified cirrhosis of liver SNOMED: 51233159 (4) Thrombocytopenia ICD Codes: D69.6 - Thrombocytopenia, unspecified SNOMED: 866701085 (5) Intractable abdominal pain ICD Codes: R10.9 - Unspecified abdominal pain SNOMED: 82209878, 555537140 (6) Lower GI bleed ICD Codes: K92.2 - Gastrointestinal hemorrhage, unspecified SNOMED: 75305963 (7) Psychosis ICD Codes: F29 - Unspecified psychosis not due to a substance or known physiological condition SNOMED: 14840094 (8) History of CVA (cerebrovascular accident) ICD Codes: Z86.73 - Personal history of transient ischemic attack (TIA), and cerebral infarction without residual deficits SNOMED: 287072872 Status: unchanged Assessment/Plan ot pt diet abx per id gi/heme f/u dc if clear Subjective Constitutional: Reports: weakness Allergies: Coded Allergies: ACETAMINOPHEN (Verified Allergy, Unknown, 08/28/18) ASPIRIN (Verified Allergy, Unknown, 08/28/18) KETOROLAC (Verified Allergy, Unknown, 08/28/18) NSAIDS (NON-STEROIDAL ANTI-INFLAMMA (Verified Allergy, Unknown, 09/09/18) All Systems: reviewed and negative except above Subjective sleepy in bed Objective Last 24 Hour Vital Signs Date Time Temp Pulse Resp B/P (MAP) Pulse Ox O2 Delivery O2 Flow Rate FiO2 11/02/18 12:00 98.4 70 21 121/69 (86) 94 11/02/18 12:00 97.7 69 19 105/68 (80) 98 11/02/18 09:00 Room Air 11/02/18 08:43 78 121/76 11/02/18 08:00 98.1 76 19 121/76 (91) 97 11/02/18 04:00 99.2 78 18 126/60 (82) 93 11/02/18 00:00 98.6 79 18 124/59 (80) 94 11/01/18 21:39 78 136/71 11/01/18 21:35 78 136/71 (92) 11/01/18 21:00 Room Air 11/01/18 20:00 98.8 76 18 119/62 (81) 93 11/01/18 16:00 98.1 69 18 136/68 (90) 95 Intake and Output 11/01/18 11/02/18 19:00 07:00 Intake Total 840 ml Output Total 700 ml 504 ml Balance 140 ml -504 ml Intake Oral 840 ml Output Urine Total 700 ml 500 ml Stool Total 4 ml Laboratory Tests 11/02/18 06:40: Sodium Level 142, Potassium Level 3.8, Chloride Level 107, Carbon Dioxide Level 24, Anion Gap 11, Blood Urea Nitrogen 18, Creatinine 0.9, Estimat Glomerular Filtration Rate > 60, Glucose Level 136H, Calcium Level 8.7, Total Bilirubin 0.4 , Aspartate Amino Transf (AST/SGOT) 75H, Alanine Aminotransferase (ALT/SGPT) 100H, Alkaline Phosphatase 86, Total Protein 8.8H, Albumin 3.0L, Globulin 5.8, Albumin/Globulin Ratio 0.5L Height (Feet): 6 Height (Inches): 4.00 Weight (Pounds): 288 General Appearance: lethargic EENT: normal ENT inspection Neck: normal alignment Cardiovascular: normal peripheral pulses, normal rate, regular rhythm Respiratory/Chest: chest wall non-tender, lungs clear, normal breath sounds Abdomen: normal bowel sounds, non tender, soft Extremities: normal inspection Edema: no edema noted Arm (L), no edema noted Arm (R), no edema noted Leg (L), no edema noted Leg (R), no edema noted Pedal (L), no edema noted Pedal (R), no edema noted Generalized Neurologic: motor weakness Skin: normal pigmentation, warm/dry Eric Georgesmy MadiePita DO Nov 02, 2018 13:43
--- NOTE | 2018-11-02 13:58 | General Progress Note ---
Assessment/Plan Status: stable Assessment/Plan # Thrombocytopenia due to underlying hep C, stable approx 100k --> Cont to monitor and tend plt count for stability/improvement --> Hep panel in past showed hep c. HIV negative --> US abd does not cirrhosis or hsm --> Peripheral smear ordered to evaluate for blasts /schistocytes and none noted --> abx and other meds have been reviewed --> ok for ppx if plt >50k w/ wither heparin or lovenox --> Trend 109k--> 102k--> 77k-->68k-->80k-->101k-->117k # Leukopenia - due to underlying hep C --> Improved/Resolved --> US abd does not show cirrhosis or hsm --> o/p eradication as per gi # GI bleed with blood stool --> h/h stable, therefore outpatient eval # Abdominal pain --> Pain has improved --> with blood emesis, outpatient w/u --> surgery was consulted, no surgery intervention planned. # History of CVA (cerebrovascular accident) # Gallstones GREATLY APPRECIATE CONSULTATION. Subjective Allergies: Coded Allergies: ACETAMINOPHEN (Verified Allergy, Unknown, 08/28/18) ASPIRIN (Verified Allergy, Unknown, 08/28/18) KETOROLAC (Verified Allergy, Unknown, 08/28/18) NSAIDS (NON-STEROIDAL ANTI-INFLAMMA (Verified Allergy, Unknown, 09/09/18) All Systems: reviewed and negative except above Subjective Pt awake and alert. No acute events. Leukpenia has improved. VS stable. Objective Last 24 Hour Vital Signs Date Time Temp Pulse Resp B/P (MAP) Pulse Ox O2 Delivery O2 Flow Rate FiO2 11/02/18 12:00 98.4 70 21 121/69 (86) 94 11/02/18 12:00 97.7 69 19 105/68 (80) 98 11/02/18 09:00 Room Air 11/02/18 08:43 78 121/76 11/02/18 08:00 98.1 76 19 121/76 (91) 97 11/02/18 04:00 99.2 78 18 126/60 (82) 93 11/02/18 00:00 98.6 79 18 124/59 (80) 94 11/01/18 21:39 78 136/71 11/01/18 21:35 78 136/71 (92) 11/01/18 21:00 Room Air 11/01/18 20:00 98.8 76 18 119/62 (81) 93 11/01/18 16:00 98.1 69 18 136/68 (90) 95 Intake and Output 11/01/18 11/02/18 19:00 07:00 Intake Total 840 ml Output Total 700 ml 504 ml Balance 140 ml -504 ml Intake Oral 840 ml Output Urine Total 700 ml 500 ml Stool Total 4 ml Laboratory Tests 11/02/18 06:40: Sodium Level 142, Potassium Level 3.8, Chloride Level 107, Carbon Dioxide Level 24, Anion Gap 11, Blood Urea Nitrogen 18, Creatinine 0.9, Estimat Glomerular Filtration Rate > 60, Glucose Level 136H, Calcium Level 8.7, Total Bilirubin 0.4 , Aspartate Amino Transf (AST/SGOT) 75H, Alanine Aminotransferase (ALT/SGPT) 100H, Alkaline Phosphatase 86, Total Protein 8.8H, Albumin 3.0L, Globulin 5.8, Albumin/Globulin Ratio 0.5L Height (Feet): 6 Height (Inches): 4.00 Weight (Pounds): 288 Objective General Appearance: normal inspection, well appearing, no apparent distress Head: atraumatic ENT: normal ENT inspection, hearing grossly normal, normal voice Neck: normal inspection, full range of motion, supple, no bony tend Respiratory: normal inspection, lungs clear, normal breath sounds, no respiratory distress, no retraction, no wheezing Cardiovascular #1: regular rate, rhythm, no edema Gastrointestinal: normal inspection, normal bowel sounds, non tender, soft, no guarding, no hernia Genitourinary: no CVA tenderness Musculoskeletal: normal inspection, back normal, normal range of motion Neurologic: normal inspection, alert, responsive, speech normal Psychiatric: normal inspection, judgement/insight normal, mood/affect normal Skin: normal inspection, normal color, no rash Bebo Agustin MD Nov 02, 2018 13:58
--- NOTE | 2018-11-02 15:14 | GI Progress Note ---
Assessment/Plan Problems: (1) Diarrhea ICD Codes: R19.7 - Diarrhea, unspecified SNOMED: 82310640 (2) Psychosis ICD Codes: F29 - Unspecified psychosis not due to a substance or known physiological condition SNOMED: 03930552 (3) Depressed ICD Codes: F32.9 - Major depressive disorder, single episode, unspecified SNOMED: 37390883 (4) Cirrhosis ICD Codes: K74.60 - Unspecified cirrhosis of liver SNOMED: 56573512 (5) Lower GI bleed ICD Codes: K92.2 - Gastrointestinal hemorrhage, unspecified SNOMED: 95346391 Status: unchanged Status Narrative Discussed with Dr. Ramos Assessment/Plan colonoscopy cancelled, patient unable to tolerate prep given no anemia and no recurrent bleed, will follow up as an outpatient KUB for abdominal distention >> unremarkable advance diet titrate bowel regime prn transfusion possible history of Hep C cirrhosis, fu labs pain mgmt zofran prn Imodium as needed fu labs outpatient GI procedures The patient was seen and examined at bedside and all new and available data was reviewed in the patients chart. I agree with the above findings, impression and plan. (Patient seen earlier today. Signature stamp does not reflect patient encounter time.). - Arthur Ramos MD Subjective Subjective abdominal pain abdominal distention improved Patient continues to complain of diarrhea Objective Last 24 Hour Vital Signs Date Time Temp Pulse Resp B/P (MAP) Pulse Ox O2 Delivery O2 Flow Rate FiO2 11/02/18 12:00 98.4 70 21 121/69 (86) 94 11/02/18 12:00 97.7 69 19 105/68 (80) 98 11/02/18 09:00 Room Air 11/02/18 08:43 78 121/76 11/02/18 08:00 98.1 76 19 121/76 (91) 97 11/02/18 04:00 99.2 78 18 126/60 (82) 93 11/02/18 00:00 98.6 79 18 124/59 (80) 94 11/01/18 21:39 78 136/71 11/01/18 21:35 78 136/71 (92) 11/01/18 21:00 Room Air 11/01/18 20:00 98.8 76 18 119/62 (81) 93 11/01/18 16:00 98.1 69 18 136/68 (90) 95 Intake and Output 11/01/18 11/02/18 19:00 07:00 Intake Total 840 ml Output Total 700 ml 504 ml Balance 140 ml -504 ml Intake Oral 840 ml Output Urine Total 700 ml 500 ml Stool Total 4 ml Laboratory Tests Test 11/02/18 06:40 Sodium Level 142 MMOL/L (136-145) Potassium Level 3.8 MMOL/L (3.5-5.1) Chloride Level 107 MMOL/L (98-107) Carbon Dioxide Level 24 MMOL/L (21-32) Anion Gap 11 mmol/L (5-15) Blood Urea Nitrogen 18 mg/dL (7-18) Creatinine 0.9 MG/DL (0.55-1.30) Estimat Glomerular Filtration Rate > 60 mL/min (>60) Glucose Level 136 MG/DL (74-106) H Calcium Level 8.7 MG/DL (8.5-10.1) Total Bilirubin 0.4 MG/DL (0.2-1.0) Aspartate Amino Transf (AST/SGOT) 75 U/L (15-37) H Alanine Aminotransferase (ALT/SGPT) 100 U/L (12-78) H Alkaline Phosphatase 86 U/L (46-116) Total Protein 8.8 G/DL (6.4-8.2) H Albumin 3.0 G/DL (3.4-5.0) L Globulin 5.8 g/dL Albumin/Globulin Ratio 0.5 (1.0-2.7) L Height (Feet): 6 Height (Inches): 4.00 Weight (Pounds): 288 General Appearance: WD/WN, no apparent distress, alert Cardiovascular: normal rate Respiratory/Chest: normal breath sounds, no respiratory distress Abdominal Exam: normal bowel sounds, non tender, soft Extremities: normal range of motion, non-tender Santiago Rouse NP Nov 02, 2018 15:14
[2018-11-02] MEDS: Loperamide 2mg cap ORAL PRN (15:34)
[2018-11-02 16:00] VITALS: BP 129/67
--- NOTE | 2018-11-02 16:45 | Progress Note ---
DATE: 11/02/2018 SUBJECTIVE: This is a 52-year-old male patient with GI bleed. This patient has GI bleeding, but he has extreme mood lability, agitation, irritability, confusion, and disorganized thought process, worsened by stress of his medical illness. That is why he does require a daily psychiatric consultation. MENTAL STATUS EXAMINATION: This is a 52-year-old male. Appearance is disheveled. Attitude, irritable and agitated. Affect, guarded and restricted. Intellect poor. Mood depressed and anxious. Motor activity, psychomotor agitation. Attention is poor. Orientation x2. Speech is pressured. Thought process, disorganized and illogical. Insight and judgment are poor. DIAGNOSIS: Schizoaffective, bipolar type. PLAN: Continue the patient on Abilify to stabilize mood and psychosis. Provided him with 20 minutes of supportive therapy and encouraged him to interact appropriately with staff and other patients. Chart was reviewed and discussed with staff. Also, in addition to that, I am going to provide 20 minutes of cognitive behavioral therapy to help identify this patient automatic negative thoughts and help convert his negative thoughts to more positive thoughts to reduce depression, anxiety, and suicidality. Chart reviewed and discussed with staff. Twenty minutes of cognitive behavioral therapy was provided. Seen and assessed at bedside. Amy Benites M.D. DR: SEVERINO JOB#: [id number] CC:
[2018-11-02 20:00] VITALS: BP 130/71
[2018-11-02] MEDS: TraZODone 50mg tab ORAL SCH (20:13)
[2018-11-03] VITALS (8 sets, daily range): BP systolic 91–133; BP diastolic 57–69
[2018-11-03] MEDS: oxyCODONE 15mg IR tab ORAL PRN ×3 (04:23→21:41)
[2018-11-03 07:09] LABS: BASOPHILS % (AUTO) 0.4 % (0.0-2.0); HEMATOCRIT 44.9 % (42.0-52.0); HEMOGLOBIN 14.3 G/DL (14.2-18.0); LYMPHOCYTES % (AUTO) 27.3 % (20.0-45.0); MEAN CORPUSCULAR VOLUME 87 FL (80-99); MONOCYTES % (AUTO) 9.9 % (1.0-10.0); NEUTROPHILS % (AUTO) 60.5 % (45.0-75.0); PLATELET COUNT 123 K/UL (150-450); RED BLOOD COUNT 5.16 M/UL (4.70-6.10); RED CELL DISTRIBUTION WIDTH 13.6 % (11.6-14.8); WHITE BLOOD COUNT 5.9 K/UL (4.8-10.8)
[2018-11-03 07:25] LABS: ANION GAP 7 mmol/L (5-15); BLOOD UREA NITROGEN 15 mg/dL (7-18); CALCIUM 8.7 MG/DL (8.5-10.1); CARBON DIOXIDE 27 MMOL/L (21-32); CHLORIDE 107 MMOL/L (98-107); CREATININE 0.9 MG/DL (0.55-1.30); POTASSIUM 3.6 MMOL/L (3.5-5.1); SODIUM 141 MMOL/L (136-145)
[2018-11-03] MEDS: Metoprolol 25mg tab ORAL SCH ×2 (09:00→21:03)
[2018-11-03] MEDS: Docusate 100mg cap ORAL SCH ×3 (09:00→17:41)
[2018-11-03] MEDS: Sertraline 50mg tab ORAL SCH (09:06)
[2018-11-03] MEDS: Tamsulosin 0.4mg cap ORAL SCH ×2 (09:06→17:39)
[2018-11-03] MEDS: Loperamide 2mg cap ORAL PRN ×2 (09:09→17:38)
--- NOTE | 2018-11-03 11:40 | Infectious Diseases Prog Note ---
Assessment/Plan Assessment/Plan Assessment/Plan Low grade fever, SP -CXR: No acute process. Borderline cardiomegaly No leukocytosis GIB RLQ pain- 2ry to hepatitis -Abd US: Cholelithiasis with apparent wall thickening measuring 3 - 4 mm. Negative sonographic Cook sign. -CT abd/p : Liver: Fatty and slightly nodular liver. Correlate for cirrhosis. Gallbladder and bile ducts: Cholelithiasis. Elevated LFTs, improving Hx of Hep C,p robable cirrhosis -Hep Serologies p -HIV ab sc and VL neg psychosis HTN prostate surgery laminectomy GERD cholelithiasis duodenal diverticulum constipation BPH MDD rheumatic fever 1990 CVA 2012 with left sided weakness nephrolithiasis renal stent senior care resident Plan: -Continue to monitor off abx as clinically stable -f/u cx -Monitor CBC/C MP, temperatures -f/u hep serologies -GI, Sx f/u Thank you for this consultation. Will continue to follow along with you. Discussed with RN. Subjective Allergies: Coded Allergies: ACETAMINOPHEN (Verified Allergy, Unknown, 08/28/18) ASPIRIN (Verified Allergy, Unknown, 08/28/18) KETOROLAC (Verified Allergy, Unknown, 08/28/18) NSAIDS (NON-STEROIDAL ANTI-INFLAMMA (Verified Allergy, Unknown, 09/09/18) Subjective afebrile no leukocytosis hep panel pending Objective Vital Signs Last 24 Hour Vital Signs Date Time Temp Pulse Resp B/P (MAP) Pulse Ox O2 Delivery O2 Flow Rate FiO2 11/03/18 09:00 81 116/60 11/03/18 08:00 97.5 81 116/60 (78) 11/03/18 04:00 97.3 75 18 129/67 (87) 95 11/03/18 00:00 97.4 79 19 123/69 (87) 96 11/02/18 21:00 Room Air 11/02/18 20:13 69 130/71 11/02/18 20:00 97.3 69 18 130/71 (90) 96 11/02/18 16:00 97.3 75 18 129/67 (87) 95 11/02/18 12:00 98.4 70 21 121/69 (86) 94 11/02/18 12:00 97.7 69 19 105/68 (80) 98 Height (Feet): 6 Height (Inches): 4.00 Weight (Pounds): 288 Objective GENERAL: Calm in bed, oriented x2, slight distress secondary to abdominal pain. CARDIOVASCULAR: No murmur. LUNGS: Distant and clear. ABDOMEN: Bowel sound positive. Slightly tender. No guarding. No rigidity. No rebound. EXTREMITIES: No cyanosis, clubbing, or edema. NEUROLOGIC: The patient moves all extremities, slightly weak. Laboratory Tests Test 11/03/18 06:15 White Blood Count 5.9 K/UL (4.8-10.8) Red Blood Count 5.16 M/UL (4.70-6.10) Hemoglobin 14.3 G/DL (14.2-18.0) Hematocrit 44.9 % (42.0-52.0) Mean Corpuscular Volume 87 FL (80-99) Mean Corpuscular Hemoglobin 27.7 PG (27.0-31.0) Mean Corpuscular Hemoglobin Concent 31.8 G/DL (32.0-36.0) L Red Cell Distribution Width 13.6 % (11.6-14.8) Platelet Count 123 K/UL (150-450) L Mean Platelet Volume 8.5 FL (6.5-10.1) Neutrophils (%) (Auto) 60.5 % (45.0-75.0) Lymphocytes (%) (Auto) 27.3 % (20.0-45.0) Monocytes (%) (Auto) 9.9 % (1.0-10.0) Eosinophils (%) (Auto) 2.0 % (0.0-3.0) Basophils (%) (Auto) 0.4 % (0.0-2.0) Sodium Level 141 MMOL/L (136-145) Potassium Level 3.6 MMOL/L (3.5-5.1) Chloride Level 107 MMOL/L (98-107) Carbon Dioxide Level 27 MMOL/L (21-32) Anion Gap 7 mmol/L (5-15) Blood Urea Nitrogen 15 mg/dL (7-18) Creatinine 0.9 MG/DL (0.55-1.30) Estimat Glomerular Filtration Rate > 60 mL/min (>60) Glucose Level 110 MG/DL (74-106) H Calcium Level 8.7 MG/DL (8.5-10.1) Current Medications Medications (Trade) Dose Ordered Sig/Hugo Route PRN Reason Start Time Stop Time Status Last Admin Dose Admin Al Hydroxide/Mg Hydroxide (Mylanta II) 30 ml Q6H PRN ORAL dyspepsia 10/23/18 14:50 11/22/18 14:49 Aripiprazole (Abilify) 5 mg BEDTIME ORAL 10/23/18 21:00 11/22/18 20:59 11/02/18 20:13 Carisoprodol (Soma) 350 mg THREE TIMES A DAY ORAL 10/25/18 18:00 11/22/18 21:59 11/03/18 09:09 Dextrose (Dextrose 50%) 25 ml Q30M PRN IV Hypoglycemia 10/23/18 14:51 11/22/18 14:50 Dextrose (Dextrose 50%) 50 ml Q30M PRN IV Hypoglycemia 10/23/18 14:51 11/22/18 14:50 Diphenhydramine HCl (Benadryl) 25 mg Q6H PRN ORAL Itching/Pruritis 10/23/18 14:50 11/22/18 14:49 10/24/18 06:40 Docusate Sodium (Colace) 100 mg TID ORAL 10/25/18 18:00 11/22/18 20:59 10/31/18 09:04 Famotidine (Pepcid) 20 mg Q12HR ORAL 10/28/18 09:00 11/27/18 08:59 11/03/18 09:17 Gabapentin (Neurontin) 600 mg THREE TIMES A DAY ORAL 10/23/18 18:00 11/22/18 17:59 11/03/18 09:10 Loperamide HCl (Imodium) 2 mg Q4H PRN ORAL Diarrhea 11/02/18 15:15 12/02/18 15:14 11/03/18 09:09 Lorazepam (Ativan 2mg/ml 1ml) 0.5 mg Q4H PRN IV For Anxiety 10/30/18 14:30 11/06/18 14:29 11/02/18 22:05 Magnesium Hydroxide (Mom) 30 ml HSPRN PRN ORAL Constipation 10/23/18 21:00 11/22/18 20:59 Metoprolol Tartrate (Lopressor) 25 mg EVERY 12 HOURS ORAL 10/23/18 21:00 11/22/18 20:59 11/02/18 20:13 Ondansetron HCl (Zofran) 4 mg Q6H PRN IVP Nausea & Vomiting 10/23/18 14:50 11/22/18 14:49 Oxycodone HCl (Roxicodone) 30 mg Q8H PRN ORAL Mod-severe pain 4-10 10/31/18 19:45 11/07/18 19:44 11/03/18 04:23 Sertraline HCl (Zoloft) 50 mg DAILY ORAL 10/24/18 09:00 11/23/18 08:59 11/03/18 09:06 Tamsulosin HCl (Flomax) 0.4 mg BID ORAL 10/23/18 18:00 11/22/18 17:59 11/03/18 09:06 Trazodone HCl (Desyrel) 50 mg BEDTIME ORAL 10/23/18 21:00 11/22/18 20:59 11/02/18 20:13 Nesha Park M.D. Nov 03, 2018 11:40
--- NOTE | 2018-11-03 12:11 | GI Progress Note ---
Assessment/Plan Problems: (1) Diarrhea ICD Codes: R19.7 - Diarrhea, unspecified SNOMED: 08238591 (2) Psychosis ICD Codes: F29 - Unspecified psychosis not due to a substance or known physiological condition SNOMED: 49549342 (3) Depressed ICD Codes: F32.9 - Major depressive disorder, single episode, unspecified SNOMED: 41298208 (4) Cirrhosis ICD Codes: K74.60 - Unspecified cirrhosis of liver SNOMED: 35598132 (5) Lower GI bleed ICD Codes: K92.2 - Gastrointestinal hemorrhage, unspecified SNOMED: 76410008 Status: stable Status Narrative Discussed with Dr. Ramos. Assessment/Plan colonoscopy cancelled, patient unable to tolerate prep given no anemia and no recurrent bleed, will follow up as an outpatient KUB for abdominal distention >> unremarkable hep panel still pending after a week advance diet titrate bowel regime prn transfusion possible history of Hep C cirrhosis, fu labs pain mgmt zofran prn Imodium as needed fu labs outpatient GI procedures The patient was seen and examined at bedside and all new and available data was reviewed in the patients chart. I agree with the above findings, impression and plan. (Patient seen earlier today. Signature stamp does not reflect patient encounter time.). - Arthur Ramos MD Subjective Subjective abdominal pain abdominal distention improved Patient continues to complain of mild diarrhea, improved Objective Last 24 Hour Vital Signs Date Time Temp Pulse Resp B/P (MAP) Pulse Ox O2 Delivery O2 Flow Rate FiO2 11/03/18 09:00 81 116/60 11/03/18 08:00 97.5 81 116/60 (78) 11/03/18 04:00 97.3 75 18 129/67 (87) 95 11/03/18 00:00 97.4 79 19 123/69 (87) 96 11/02/18 21:00 Room Air 11/02/18 20:13 69 130/71 11/02/18 20:00 97.3 69 18 130/71 (90) 96 11/02/18 16:00 97.3 75 18 129/67 (87) 95 Intake and Output 11/02/18 11/03/18 19:00 07:00 Intake Total 680 ml 240 ml Output Total 750 ml 450 ml Balance -70 ml -210 ml Intake Oral 680 ml 240 ml Output Urine Total 750 ml 450 ml # Bowel Movements 3 Laboratory Tests Test 11/03/18 06:15 White Blood Count 5.9 K/UL (4.8-10.8) Red Blood Count 5.16 M/UL (4.70-6.10) Hemoglobin 14.3 G/DL (14.2-18.0) Hematocrit 44.9 % (42.0-52.0) Mean Corpuscular Volume 87 FL (80-99) Mean Corpuscular Hemoglobin 27.7 PG (27.0-31.0) Mean Corpuscular Hemoglobin Concent 31.8 G/DL (32.0-36.0) L Red Cell Distribution Width 13.6 % (11.6-14.8) Platelet Count 123 K/UL (150-450) L Mean Platelet Volume 8.5 FL (6.5-10.1) Neutrophils (%) (Auto) 60.5 % (45.0-75.0) Lymphocytes (%) (Auto) 27.3 % (20.0-45.0) Monocytes (%) (Auto) 9.9 % (1.0-10.0) Eosinophils (%) (Auto) 2.0 % (0.0-3.0) Basophils (%) (Auto) 0.4 % (0.0-2.0) Sodium Level 141 MMOL/L (136-145) Potassium Level 3.6 MMOL/L (3.5-5.1) Chloride Level 107 MMOL/L (98-107) Carbon Dioxide Level 27 MMOL/L (21-32) Anion Gap 7 mmol/L (5-15) Blood Urea Nitrogen 15 mg/dL (7-18) Creatinine 0.9 MG/DL (0.55-1.30) Estimat Glomerular Filtration Rate > 60 mL/min (>60) Glucose Level 110 MG/DL (74-106) H Calcium Level 8.7 MG/DL (8.5-10.1) Height (Feet): 6 Height (Inches): 4.00 Weight (Pounds): 288 General Appearance: WD/WN, no apparent distress, alert Cardiovascular: normal rate Respiratory/Chest: normal breath sounds, no respiratory distress Abdominal Exam: normal bowel sounds, non tender, soft Extremities: normal range of motion, non-tender RouseSantiago quiroga NP Nov 03, 2018 12:11
--- NOTE | 2018-11-03 13:54 | Pulmonology Progress Note ---
Assessment/Plan Problems: (1) UTI (urinary tract infection) (2) Lower GI bleed (3) History of urethral stent (4) History of CVA (cerebrovascular accident) (5) Psychosis (6) Intractable abdominal pain (7) CAD (coronary artery disease) (8) Nephrolithiasis (9) Cirrhosis Assessment/Plan all reviewed no new complains symptomatic treatment check labs f/u liver enzymes monitor off abx dc planning awaiting discharge Subjective ROS Limited/Unobtainable: No Constitutional: Reports: no symptoms HEENT: Repors: no symptoms Respiratory: Reports: no symptoms Allergies: Coded Allergies: ACETAMINOPHEN (Verified Allergy, Unknown, 08/28/18) ASPIRIN (Verified Allergy, Unknown, 08/28/18) KETOROLAC (Verified Allergy, Unknown, 08/28/18) NSAIDS (NON-STEROIDAL ANTI-INFLAMMA (Verified Allergy, Unknown, 09/09/18) Objective Last 24 Hour Vital Signs Date Time Temp Pulse Resp B/P (MAP) Pulse Ox O2 Delivery O2 Flow Rate FiO2 11/03/18 09:00 81 116/60 11/03/18 08:00 97.5 81 116/60 (78) 11/03/18 04:00 97.3 75 18 129/67 (87) 95 11/03/18 00:00 97.4 79 19 123/69 (87) 96 11/02/18 21:00 Room Air 11/02/18 20:13 69 130/71 11/02/18 20:00 97.3 69 18 130/71 (90) 96 11/02/18 16:00 97.3 75 18 129/67 (87) 95 Intake and Output 11/02/18 11/03/18 19:00 07:00 Intake Total 680 ml 240 ml Output Total 750 ml 450 ml Balance -70 ml -210 ml Intake Oral 680 ml 240 ml Output Urine Total 750 ml 450 ml # Bowel Movements 3 Objective General Appearance: WD/WN HEENT: normocephalic Respiratory/Chest: chest wall non-tender, lungs clear, normal breath sounds Cardiovascular: normal peripheral pulses, normal rate Abdomen: normal bowel sounds, soft, non tender Genitourinary: normal external genitalia Extremities: no clubbing Skin: no rash Neurologic/Psychiatric: ccna II-XII grossly normal Laboratory Tests 11/03/18 06:15: White Blood Count 5.9, Red Blood Count 5.16, Hemoglobin 14.3, Hematocrit 44.9, Mean Corpuscular Volume 87, Mean Corpuscular Hemoglobin 27.7, Mean Corpuscular Hemoglobin Concent 31.8L, Red Cell Distribution Width 13.6, Platelet Count 123L , Mean Platelet Volume 8.5, Neutrophils (%) (Auto) 60.5, Lymphocytes (%) (Auto) 27.3, Monocytes (%) (Auto) 9.9, Eosinophils (%) (Auto) 2.0, Basophils (%) (Auto ) 0.4, Sodium Level 141, Potassium Level 3.6, Chloride Level 107, Carbon Dioxide Level 27, Anion Gap 7, Blood Urea Nitrogen 15, Creatinine 0.9, Estimat Glomerular Filtration Rate > 60, Glucose Level 110H, Calcium Level 8.7 Current Medications Medications (Trade) Dose Ordered Sig/Hugo Route PRN Reason Start Time Stop Time Status Last Admin Dose Admin Al Hydroxide/Mg Hydroxide (Mylanta II) 30 ml Q6H PRN ORAL dyspepsia 10/23/18 14:50 11/22/18 14:49 Aripiprazole (Abilify) 5 mg BEDTIME ORAL 10/23/18 21:00 11/22/18 20:59 11/02/18 20:13 Carisoprodol (Soma) 350 mg THREE TIMES A DAY ORAL 10/25/18 18:00 11/22/18 21:59 11/03/18 13:25 Dextrose (Dextrose 50%) 25 ml Q30M PRN IV Hypoglycemia 10/23/18 14:51 11/22/18 14:50 Dextrose (Dextrose 50%) 50 ml Q30M PRN IV Hypoglycemia 10/23/18 14:51 11/22/18 14:50 Diphenhydramine HCl (Benadryl) 25 mg Q6H PRN ORAL Itching/Pruritis 10/23/18 14:50 11/22/18 14:49 10/24/18 06:40 Docusate Sodium (Colace) 100 mg TID ORAL 10/25/18 18:00 11/22/18 20:59 10/31/18 09:04 Famotidine (Pepcid) 20 mg Q12HR ORAL 10/28/18 09:00 11/27/18 08:59 11/03/18 09:17 Gabapentin (Neurontin) 600 mg THREE TIMES A DAY ORAL 10/23/18 18:00 11/22/18 17:59 11/03/18 13:21 Loperamide HCl (Imodium) 2 mg Q4H PRN ORAL Diarrhea 11/02/18 15:15 12/02/18 15:14 11/03/18 09:09 Lorazepam (Ativan 2mg/ml 1ml) 0.5 mg Q4H PRN IV For Anxiety 10/30/18 14:30 11/06/18 14:29 11/02/18 22:05 Magnesium Hydroxide (Mom) 30 ml HSPRN PRN ORAL Constipation 10/23/18 21:00 11/22/18 20:59 Metoprolol Tartrate (Lopressor) 25 mg EVERY 12 HOURS ORAL 10/23/18 21:00 11/22/18 20:59 11/02/18 20:13 Ondansetron HCl (Zofran) 4 mg Q6H PRN IVP Nausea & Vomiting 10/23/18 14:50 11/22/18 14:49 Oxycodone HCl (Roxicodone) 30 mg Q8H PRN ORAL Mod-severe pain 4-10 10/31/18 19:45 11/07/18 19:44 11/03/18 13:24 Sertraline HCl (Zoloft) 50 mg DAILY ORAL 10/24/18 09:00 11/23/18 08:59 11/03/18 09:06 Tamsulosin HCl (Flomax) 0.4 mg BID ORAL 10/23/18 18:00 11/22/18 17:59 11/03/18 09:06 Trazodone HCl (Desyrel) 50 mg BEDTIME ORAL 10/23/18 21:00 11/22/18 20:59 11/02/18 20:13 Lexy Christiansen MD Nov 03, 2018 13:54
--- NOTE | 2018-11-03 14:36 | General Progress Note ---
Assessment/Plan Problem List: (1) UTI (urinary tract infection) ICD Codes: N39.0 - Urinary tract infection, site not specified SNOMED: 13931000 (2) Depressed ICD Codes: F32.9 - Major depressive disorder, single episode, unspecified SNOMED: 09447222 (3) Cirrhosis ICD Codes: K74.60 - Unspecified cirrhosis of liver SNOMED: 02103359 (4) Thrombocytopenia ICD Codes: D69.6 - Thrombocytopenia, unspecified SNOMED: 701986233 (5) Intractable abdominal pain ICD Codes: R10.9 - Unspecified abdominal pain SNOMED: 74698032, 671890967 (6) Lower GI bleed ICD Codes: K92.2 - Gastrointestinal hemorrhage, unspecified SNOMED: 20331742 (7) Psychosis ICD Codes: F29 - Unspecified psychosis not due to a substance or known physiological condition SNOMED: 90560484 (8) History of CVA (cerebrovascular accident) ICD Codes: Z86.73 - Personal history of transient ischemic attack (TIA), and cerebral infarction without residual deficits SNOMED: 165938367 Status: unchanged Assessment/Plan ot pt diet abx per id gi/heme f/u cbc bmp am dc if clear Subjective Constitutional: Reports: weakness Allergies: Coded Allergies: ACETAMINOPHEN (Verified Allergy, Unknown, 08/28/18) ASPIRIN (Verified Allergy, Unknown, 08/28/18) KETOROLAC (Verified Allergy, Unknown, 08/28/18) NSAIDS (NON-STEROIDAL ANTI-INFLAMMA (Verified Allergy, Unknown, 09/09/18) All Systems: reviewed and negative except above Subjective sleepy in bed Objective Last 24 Hour Vital Signs Date Time Temp Pulse Resp B/P (MAP) Pulse Ox O2 Delivery O2 Flow Rate FiO2 11/03/18 09:00 81 116/60 11/03/18 08:00 97.5 81 116/60 (78) 11/03/18 04:00 97.3 75 18 129/67 (87) 95 11/03/18 00:00 97.4 79 19 123/69 (87) 96 11/02/18 21:00 Room Air 11/02/18 20:13 69 130/71 11/02/18 20:00 97.3 69 18 130/71 (90) 96 11/02/18 16:00 97.3 75 18 129/67 (87) 95 Intake and Output 12/18/18 12/19/18 19:00 07:00 Intake Total 680 ml 240 ml Output Total 750 ml 450 ml Balance -70 ml -210 ml Intake Oral 680 ml 240 ml Output Urine Total 750 ml 450 ml # Bowel Movements 3 Laboratory Tests 11/03/18 06:15: White Blood Count 5.9, Red Blood Count 5.16, Hemoglobin 14.3, Hematocrit 44.9, Mean Corpuscular Volume 87, Mean Corpuscular Hemoglobin 27.7, Mean Corpuscular Hemoglobin Concent 31.8L, Red Cell Distribution Width 13.6, Platelet Count 123L , Mean Platelet Volume 8.5, Neutrophils (%) (Auto) 60.5, Lymphocytes (%) (Auto) 27.3, Monocytes (%) (Auto) 9.9, Eosinophils (%) (Auto) 2.0, Basophils (%) (Auto ) 0.4, Sodium Level 141, Potassium Level 3.6, Chloride Level 107, Carbon Dioxide Level 27, Anion Gap 7, Blood Urea Nitrogen 15, Creatinine 0.9, Estimat Glomerular Filtration Rate > 60, Glucose Level 110H, Calcium Level 8.7 Height (Feet): 6 Height (Inches): 4.00 Weight (Pounds): 288 General Appearance: lethargic EENT: normal ENT inspection Neck: normal alignment Cardiovascular: normal peripheral pulses, normal rate, regular rhythm Respiratory/Chest: chest wall non-tender, lungs clear, normal breath sounds Abdomen: normal bowel sounds, non tender, soft Extremities: normal inspection Edema: no edema noted Arm (L), no edema noted Arm (R), no edema noted Leg (L), no edema noted Leg (R), no edema noted Pedal (L), no edema noted Pedal (R), no edema noted Generalized Neurologic: responsive, motor weakness Skin: normal pigmentation, warm/dry Roberto Georges DO Nov 03, 2018 14:36
--- NOTE | 2018-11-03 19:30 | Progress Note ---
DATE: 11/03/2018 SUBJECTIVE:: This is a 52-year-old patient with flank pain and GI problems. The patient continues to have some confusion, disorganized thought process, and mood lability, worsened by stress medical illness that is why he does require daily psychiatric consultation. He has some mood lability. MENTAL STATUS EXAMINATION: The patient is a 52-year-old male. Appearance is disheveled. Attitude, irritable and agitated. Affect, guarded and restricted. Intellect poor. Mood depressed and anxious. Motor activity, psychomotor agitation. Attention span is poor. Orientation x2. Speech is pressured. Thought process, disorganized and illogical. Thought content, auditory hallucinations and paranoid delusions. Insight and judgment is poor. DIAGNOSIS: Paranoid schizophrenia with acute exacerbation. PLAN: Treat him with Abilify 5 mg daily and Zoloft 50 mg daily. A 20 minutes of supportive psychotherapy provided and 20 minutes of cognitive behavioral therapy as well so during a 20-minute of cognitive behavior therapy session, we identified his automatic negative thoughts to convert those negative thoughts to more positive thinking to reduce depression, anxiety, suicidality. Chart reviewed. Discussed with staff. Amy Benites M.D. DR: Betty JOB#: [id number] CC:
[2018-11-03] MEDS: TraZODone 50mg tab ORAL SCH (21:03)
--- NOTE | 2018-11-03 22:43 | General Surgery Progress Note ---
General Surgery-Progress Note Subjective Symptoms: improved, pain absent, tolerating diet, passing flatus Additional Comments doing well. no acute events. does not want to go home Objective Last 24 Hour Vital Signs Date Time Temp Pulse Resp B/P (MAP) Pulse Ox O2 Delivery O2 Flow Rate FiO2 11/03/18 21:03 80 133/62 11/03/18 21:00 Room Air 11/03/18 20:00 97.8 80 19 133/62 (85) 95 11/03/18 16:00 97.0 76 128/57 (80) 11/03/18 12:00 98.0 71 127/62 (83) 11/03/18 09:00 Room Air 11/03/18 09:00 81 116/60 11/03/18 08:00 97.5 81 116/60 (78) 11/03/18 04:00 97.3 75 18 129/67 (87) 95 11/03/18 00:00 97.4 79 19 123/69 (87) 96 I&O Intake and Output 11/02/18 11/03/18 18:59 06:59 Intake Total 680 ml 240 ml Output Total 750 ml 450 ml Balance -70 ml -210 ml Intake Oral 680 ml 240 ml Output Urine Total 750 ml 450 ml # Bowel Movements 3 Drains: none Cardiovascular: RSR Respiratory: clear Abdomen: soft, flat, non-tender, present bowel sounds Extremities: no cyanosis Laboratory Tests Test 11/03/18 06:15 White Blood Count 5.9 K/UL (4.8-10.8) Red Blood Count 5.16 M/UL (4.70-6.10) Hemoglobin 14.3 G/DL (14.2-18.0) Hematocrit 44.9 % (42.0-52.0) Mean Corpuscular Volume 87 FL (80-99) Mean Corpuscular Hemoglobin 27.7 PG (27.0-31.0) Mean Corpuscular Hemoglobin Concent 31.8 G/DL (32.0-36.0) L Red Cell Distribution Width 13.6 % (11.6-14.8) Platelet Count 123 K/UL (150-450) L Mean Platelet Volume 8.5 FL (6.5-10.1) Neutrophils (%) (Auto) 60.5 % (45.0-75.0) Lymphocytes (%) (Auto) 27.3 % (20.0-45.0) Monocytes (%) (Auto) 9.9 % (1.0-10.0) Eosinophils (%) (Auto) 2.0 % (0.0-3.0) Basophils (%) (Auto) 0.4 % (0.0-2.0) Sodium Level 141 MMOL/L (136-145) Potassium Level 3.6 MMOL/L (3.5-5.1) Chloride Level 107 MMOL/L (98-107) Carbon Dioxide Level 27 MMOL/L (21-32) Anion Gap 7 mmol/L (5-15) Blood Urea Nitrogen 15 mg/dL (7-18) Creatinine 0.9 MG/DL (0.55-1.30) Estimat Glomerular Filtration Rate > 60 mL/min (>60) Glucose Level 110 MG/DL (74-106) H Calcium Level 8.7 MG/DL (8.5-10.1) Plan Problems: (1) Intractable abdominal pain Assessment & Plan: improving US noted CT noted pain resolved -okay for diet -no surgical intervention planned -okay to d/c from surgical standpoint thank you will follow with Rashid Bond Nov 03, 2018 22:43
[2018-11-04] VITALS: BP 103/56
[2018-11-04 04:00] VITALS: BP 117/55
[2018-11-04] MEDS: Loperamide 2mg cap ORAL PRN ×2 (06:09→09:43)
[2018-11-04] MEDS: oxyCODONE 15mg IR tab ORAL PRN ×2 (06:09→14:17)
[2018-11-04 06:50] LABS: BASOPHILS % (AUTO) 0.7 % (0.0-2.0); EOSINOPHILS % (AUTO) 2.9 % (0.0-3.0); HEMATOCRIT 43.6 % (42.0-52.0); HEMOGLOBIN 13.8 G/DL (14.2-18.0); LYMPHOCYTES % (AUTO) 27.1 % (20.0-45.0); MEAN CORPUSCULAR VOLUME 88 FL (80-99); MONOCYTES % (AUTO) 10.5 % (1.0-10.0); NEUTROPHILS % (AUTO) 58.9 % (45.0-75.0); PLATELET COUNT 123 K/UL (150-450); RED BLOOD COUNT 4.97 M/UL (4.70-6.10); RED CELL DISTRIBUTION WIDTH 13.6 % (11.6-14.8); WHITE BLOOD COUNT 5.5 K/UL (4.8-10.8)
[2018-11-04 07:01] LABS: ANION GAP 3 mmol/L (5-15); BLOOD UREA NITROGEN 16 mg/dL (7-18); CALCIUM 8.7 MG/DL (8.5-10.1); CARBON DIOXIDE 30 MMOL/L (21-32); CHLORIDE 108 MMOL/L (98-107); POTASSIUM 3.8 MMOL/L (3.5-5.1); SODIUM 141 MMOL/L (136-145)
[2018-11-04 08:00] VITALS: BP 122/66
[2018-11-04] MEDS: Docusate 100mg cap ORAL SCH ×3 (09:00→17:37)
[2018-11-04] MEDS: Sertraline 50mg tab ORAL SCH (09:43)
[2018-11-04] MEDS: Tamsulosin 0.4mg cap ORAL SCH ×2 (09:43→17:38)
[2018-11-04] MEDS: Metoprolol 25mg tab ORAL SCH ×2 (09:43→20:51)
--- NOTE | 2018-11-04 11:50 | Infectious Diseases Prog Note ---
Assessment/Plan Assessment/Plan Assessment/Plan Low grade fever, SP -CXR: No acute process. Borderline cardiomegaly No leukocytosis GIB RLQ pain- 2ry to hepatitis -Abd US: Cholelithiasis with apparent wall thickening measuring 3 - 4 mm. Negative sonographic Cook sign. -CT abd/p : Liver: Fatty and slightly nodular liver. Correlate for cirrhosis. Gallbladder and bile ducts: Cholelithiasis. Elevated LFTs, improving Hx of Hep C,p robable cirrhosis -Hep C ab and VL P -Hep A not immune, Hep B immune and +Bc ab -HIV ab sc and VL neg 11/03 Cdiff neg psychosis HTN prostate surgery laminectomy GERD cholelithiasis duodenal diverticulum constipation BPH MDD rheumatic fever 1990 CVA 2012 with left sided weakness nephrolithiasis renal stent long-term resident Plan: -Continue to monitor off abx as clinically stable -f/u cx -Monitor CBC/C MP, temperatures -f/u hep serologies -GI, Sx f/u Thank you for this consultation. Will continue to follow along with you. Discussed with RN. Subjective Allergies: Coded Allergies: ACETAMINOPHEN (Verified Allergy, Unknown, 08/28/18) ASPIRIN (Verified Allergy, Unknown, 08/28/18) KETOROLAC (Verified Allergy, Unknown, 08/28/18) NSAIDS (NON-STEROIDAL ANTI-INFLAMMA (Verified Allergy, Unknown, 09/09/18) Subjective afebrile no leukocytosis hep C ab p Objective Vital Signs Last 24 Hour Vital Signs Date Time Temp Pulse Resp B/P (MAP) Pulse Ox O2 Delivery O2 Flow Rate FiO2 11/04/18 10:12 98.0 11/04/18 09:43 73 122/66 11/04/18 09:00 Room Air 11/04/18 08:00 98.0 73 20 122/66 (84) 94 11/04/18 04:00 98.0 71 19 117/55 (75) 98 11/04/18 00:00 97.2 64 19 103/56 (72) 92 11/03/18 21:03 80 133/62 11/03/18 21:00 Room Air 11/03/18 20:00 97.8 80 19 133/62 (85) 95 11/03/18 16:00 97.0 76 128/57 (80) 11/03/18 12:00 98.0 71 127/62 (83) Height (Feet): 6 Height (Inches): 4.00 Weight (Pounds): 288 Objective GENERAL: Calm in bed, oriented x2, slight distress secondary to abdominal pain. CARDIOVASCULAR: No murmur. LUNGS: Distant and clear. ABDOMEN: Bowel sound positive. Slightly tender. No guarding. No rigidity. No rebound. EXTREMITIES: No cyanosis, clubbing, or edema. NEUROLOGIC: The patient moves all extremities, slightly weak. Microbiology Date/Time Source Procedure Growth Status 11/03/18 15:30 Stool Clostridium difficile Toxin Assay - Final Complete Laboratory Tests Test 11/04/18 06:05 White Blood Count 5.5 K/UL (4.8-10.8) Red Blood Count 4.97 M/UL (4.70-6.10) Hemoglobin 13.8 G/DL (14.2-18.0) L Hematocrit 43.6 % (42.0-52.0) Mean Corpuscular Volume 88 FL (80-99) Mean Corpuscular Hemoglobin 27.7 PG (27.0-31.0) Mean Corpuscular Hemoglobin Concent 31.6 G/DL (32.0-36.0) L Red Cell Distribution Width 13.6 % (11.6-14.8) Platelet Count 123 K/UL (150-450) L Mean Platelet Volume 7.8 FL (6.5-10.1) Neutrophils (%) (Auto) 58.9 % (45.0-75.0) Lymphocytes (%) (Auto) 27.1 % (20.0-45.0) Monocytes (%) (Auto) 10.5 % (1.0-10.0) H Eosinophils (%) (Auto) 2.9 % (0.0-3.0) Basophils (%) (Auto) 0.7 % (0.0-2.0) Sodium Level 141 MMOL/L (136-145) Potassium Level 3.8 MMOL/L (3.5-5.1) Chloride Level 108 MMOL/L (98-107) H Carbon Dioxide Level 30 MMOL/L (21-32) Anion Gap 3 mmol/L (5-15) L Blood Urea Nitrogen 16 mg/dL (7-18) Creatinine 1.0 MG/DL (0.55-1.30) Estimat Glomerular Filtration Rate > 60 mL/min (>60) Glucose Level 122 MG/DL (74-106) H Calcium Level 8.7 MG/DL (8.5-10.1) Current Medications Medications (Trade) Dose Ordered Sig/Hugo Route PRN Reason Start Time Stop Time Status Last Admin Dose Admin Al Hydroxide/Mg Hydroxide (Mylanta II) 30 ml Q6H PRN ORAL dyspepsia 10/23/18 14:50 11/22/18 14:49 Aripiprazole (Abilify) 5 mg BEDTIME ORAL 10/23/18 21:00 11/22/18 20:59 11/03/18 21:02 Carisoprodol (Soma) 350 mg THREE TIMES A DAY ORAL 10/25/18 18:00 11/22/18 21:59 11/04/18 09:42 Dextrose (Dextrose 50%) 25 ml Q30M PRN IV Hypoglycemia 10/23/18 14:51 11/22/18 14:50 Dextrose (Dextrose 50%) 50 ml Q30M PRN IV Hypoglycemia 10/23/18 14:51 11/22/18 14:50 Diphenhydramine HCl (Benadryl) 25 mg Q6H PRN ORAL Itching/Pruritis 10/23/18 14:50 11/22/18 14:49 10/24/18 06:40 Docusate Sodium (Colace) 100 mg TID ORAL 10/25/18 18:00 11/22/18 20:59 10/31/18 09:04 Famotidine (Pepcid) 20 mg Q12HR ORAL 10/28/18 09:00 11/27/18 08:59 11/04/18 09:43 Gabapentin (Neurontin) 600 mg THREE TIMES A DAY ORAL 10/23/18 18:00 11/22/18 17:59 11/04/18 09:43 Loperamide HCl (Imodium) 2 mg Q4H PRN ORAL Diarrhea 11/02/18 15:15 12/02/18 15:14 11/04/18 09:43 Lorazepam (Ativan 2mg/ml 1ml) 0.5 mg Q4H PRN IV For Anxiety 10/30/18 14:30 11/06/18 14:29 11/02/18 22:05 Magnesium Hydroxide (Mom) 30 ml HSPRN PRN ORAL Constipation 10/23/18 21:00 11/22/18 20:59 Metoprolol Tartrate (Lopressor) 25 mg EVERY 12 HOURS ORAL 10/23/18 21:00 11/22/18 20:59 11/04/18 09:43 Ondansetron HCl (Zofran) 4 mg Q6H PRN IVP Nausea & Vomiting 10/23/18 14:50 11/22/18 14:49 Oxycodone HCl (Roxicodone) 30 mg Q8H PRN ORAL Mod-severe pain 4-10 10/31/18 19:45 11/07/18 19:44 11/04/18 06:09 Sertraline HCl (Zoloft) 50 mg DAILY ORAL 10/24/18 09:00 11/23/18 08:59 11/04/18 09:43 Tamsulosin HCl (Flomax) 0.4 mg BID ORAL 10/23/18 18:00 11/22/18 17:59 11/04/18 09:43 Trazodone HCl (Desyrel) 50 mg BEDTIME ORAL 10/23/18 21:00 11/22/18 20:59 11/03/18 21:03 Nesha Park M.D. Nov 04, 2018 11:50
[2018-11-04 12:00] VITALS: BP 108/68
--- NOTE | 2018-11-04 12:32 | GI Progress Note ---
Assessment/Plan Problems: (1) Diarrhea ICD Codes: R19.7 - Diarrhea, unspecified SNOMED: 29097622 (2) Psychosis ICD Codes: F29 - Unspecified psychosis not due to a substance or known physiological condition SNOMED: 95024471 (3) Depressed ICD Codes: F32.9 - Major depressive disorder, single episode, unspecified SNOMED: 55835651 (4) Cirrhosis ICD Codes: K74.60 - Unspecified cirrhosis of liver SNOMED: 17046836 (5) Lower GI bleed ICD Codes: K92.2 - Gastrointestinal hemorrhage, unspecified SNOMED: 62741408 Status: stable Status Narrative Discussed with Dr. Ramos Assessment/Plan colonoscopy cancelled, patient unable to tolerate prep given no anemia and no recurrent bleed, will follow up as an outpatient KUB for abdominal distention >> unremarkable hep panel still pending after a week advance diet titrate bowel regime prn transfusion possible history of Hep C cirrhosis, fu labs pain mgmt zofran prn Imodium as needed fu labs outpatient GI procedures The patient was seen and examined at bedside and all new and available data was reviewed in the patients chart. I agree with the above findings, impression and plan. (Patient seen earlier today. Signature stamp does not reflect patient encounter time.). - Arthur Ramos MD Subjective Subjective abdominal pain abdominal distention improved Patient continues to complain of mild diarrhea, improved Objective Last 24 Hour Vital Signs Date Time Temp Pulse Resp B/P (MAP) Pulse Ox O2 Delivery O2 Flow Rate FiO2 11/04/18 12:00 97.9 70 20 108/68 (81) 94 11/04/18 10:12 98.0 11/04/18 09:43 73 122/66 11/04/18 09:00 Room Air 11/04/18 08:00 98.0 73 20 122/66 (84) 94 11/04/18 04:00 98.0 71 19 117/55 (75) 98 11/04/18 00:00 97.2 64 19 103/56 (72) 92 11/03/18 21:03 80 133/62 11/03/18 21:00 Room Air 11/03/18 20:00 97.8 80 19 133/62 (85) 95 11/03/18 16:00 97.0 76 128/57 (80) Intake and Output 11/03/18 11/04/18 19:00 07:00 Intake Total 500 ml 60 ml Output Total 550 ml Balance -50 ml 60 ml Intake Oral 500 ml 60 ml Output Urine Total 550 ml # Voids 3 # Bowel Movements 3 Laboratory Tests Test 11/04/18 06:05 White Blood Count 5.5 K/UL (4.8-10.8) Red Blood Count 4.97 M/UL (4.70-6.10) Hemoglobin 13.8 G/DL (14.2-18.0) L Hematocrit 43.6 % (42.0-52.0) Mean Corpuscular Volume 88 FL (80-99) Mean Corpuscular Hemoglobin 27.7 PG (27.0-31.0) Mean Corpuscular Hemoglobin Concent 31.6 G/DL (32.0-36.0) L Red Cell Distribution Width 13.6 % (11.6-14.8) Platelet Count 123 K/UL (150-450) L Mean Platelet Volume 7.8 FL (6.5-10.1) Neutrophils (%) (Auto) 58.9 % (45.0-75.0) Lymphocytes (%) (Auto) 27.1 % (20.0-45.0) Monocytes (%) (Auto) 10.5 % (1.0-10.0) H Eosinophils (%) (Auto) 2.9 % (0.0-3.0) Basophils (%) (Auto) 0.7 % (0.0-2.0) Sodium Level 141 MMOL/L (136-145) Potassium Level 3.8 MMOL/L (3.5-5.1) Chloride Level 108 MMOL/L (98-107) H Carbon Dioxide Level 30 MMOL/L (21-32) Anion Gap 3 mmol/L (5-15) L Blood Urea Nitrogen 16 mg/dL (7-18) Creatinine 1.0 MG/DL (0.55-1.30) Estimat Glomerular Filtration Rate > 60 mL/min (>60) Glucose Level 122 MG/DL (74-106) H Calcium Level 8.7 MG/DL (8.5-10.1) Microbiology Date/Time Source Procedure Growth Status 11/03/18 15:30 Stool Clostridium difficile Toxin Assay - Final Complete Height (Feet): 6 Height (Inches): 4.00 Weight (Pounds): 288 General Appearance: WD/WN, no apparent distress, alert Cardiovascular: normal rate Respiratory/Chest: normal breath sounds, no respiratory distress Abdominal Exam: normal bowel sounds, non tender, soft Extremities: normal range of motion, non-tender Santiago Rouse NP Nov 04, 2018 12:32
--- NOTE | 2018-11-04 12:37 | Pulmonology Progress Note ---
Assessment/Plan Problems: (1) UTI (urinary tract infection) (2) Lower GI bleed (3) History of urethral stent (4) History of CVA (cerebrovascular accident) (5) Psychosis (6) Intractable abdominal pain (7) CAD (coronary artery disease) (8) Nephrolithiasis (9) Cirrhosis Assessment/Plan all reviewed no new complains symptomatic treatment check labs f/u liver enzymes monitor off abx dc planning awaiting discharge Subjective ROS Limited/Unobtainable: No Constitutional: Reports: no symptoms HEENT: Repors: no symptoms Respiratory: Reports: no symptoms Allergies: Coded Allergies: ACETAMINOPHEN (Verified Allergy, Unknown, 08/28/18) ASPIRIN (Verified Allergy, Unknown, 08/28/18) KETOROLAC (Verified Allergy, Unknown, 08/28/18) NSAIDS (NON-STEROIDAL ANTI-INFLAMMA (Verified Allergy, Unknown, 09/09/18) Objective Last 24 Hour Vital Signs Date Time Temp Pulse Resp B/P (MAP) Pulse Ox O2 Delivery O2 Flow Rate FiO2 11/04/18 12:00 97.9 70 20 108/68 (81) 94 11/04/18 10:12 98.0 11/04/18 09:43 73 122/66 11/04/18 09:00 Room Air 11/04/18 08:00 98.0 73 20 122/66 (84) 94 11/04/18 04:00 98.0 71 19 117/55 (75) 98 11/04/18 00:00 97.2 64 19 103/56 (72) 92 11/03/18 21:03 80 133/62 11/03/18 21:00 Room Air 11/03/18 20:00 97.8 80 19 133/62 (85) 95 11/03/18 16:00 97.0 76 128/57 (80) Intake and Output 11/03/18 11/04/18 19:00 07:00 Intake Total 500 ml 60 ml Output Total 550 ml Balance -50 ml 60 ml Intake Oral 500 ml 60 ml Output Urine Total 550 ml # Voids 3 # Bowel Movements 3 Objective General Appearance: WD/WN HEENT: normocephalic Respiratory/Chest: chest wall non-tender, lungs clear, normal breath sounds Cardiovascular: normal peripheral pulses, normal rate Abdomen: normal bowel sounds, soft, non tender Genitourinary: normal external genitalia Extremities: no clubbing Skin: no rash Microbiology Date/Time Source Procedure Growth Status 11/03/18 15:30 Stool Clostridium difficile Toxin Assay - Final Complete Laboratory Tests 11/04/18 06:05: White Blood Count 5.5, Red Blood Count 4.97, Hemoglobin 13.8L, Hematocrit 43.6, Mean Corpuscular Volume 88, Mean Corpuscular Hemoglobin 27.7, Mean Corpuscular Hemoglobin Concent 31.6L, Red Cell Distribution Width 13.6, Platelet Count 123L , Mean Platelet Volume 7.8, Neutrophils (%) (Auto) 58.9, Lymphocytes (%) (Auto) 27.1, Monocytes (%) (Auto) 10.5H, Eosinophils (%) (Auto) 2.9, Basophils (%) ( Auto) 0.7, Sodium Level 141, Potassium Level 3.8, Chloride Level 108H, Carbon Dioxide Level 30, Anion Gap 3L, Blood Urea Nitrogen 16, Creatinine 1.0, Estimat Glomerular Filtration Rate > 60, Glucose Level 122H, Calcium Level 8.7 Current Medications Medications (Trade) Dose Ordered Sig/Hugo Route PRN Reason Start Time Stop Time Status Last Admin Dose Admin Al Hydroxide/Mg Hydroxide (Mylanta II) 30 ml Q6H PRN ORAL dyspepsia 10/23/18 14:50 11/22/18 14:49 Aripiprazole (Abilify) 5 mg BEDTIME ORAL 10/23/18 21:00 11/22/18 20:59 11/03/18 21:02 Carisoprodol (Soma) 350 mg THREE TIMES A DAY ORAL 10/25/18 18:00 11/22/18 21:59 11/04/18 09:42 Dextrose (Dextrose 50%) 25 ml Q30M PRN IV Hypoglycemia 10/23/18 14:51 11/22/18 14:50 Dextrose (Dextrose 50%) 50 ml Q30M PRN IV Hypoglycemia 10/23/18 14:51 11/22/18 14:50 Diphenhydramine HCl (Benadryl) 25 mg Q6H PRN ORAL Itching/Pruritis 10/23/18 14:50 11/22/18 14:49 10/24/18 06:40 Docusate Sodium (Colace) 100 mg TID ORAL 10/25/18 18:00 11/22/18 20:59 10/31/18 09:04 Famotidine (Pepcid) 20 mg Q12HR ORAL 10/28/18 09:00 11/27/18 08:59 11/04/18 09:43 Gabapentin (Neurontin) 600 mg THREE TIMES A DAY ORAL 10/23/18 18:00 11/22/18 17:59 11/04/18 09:43 Loperamide HCl (Imodium) 2 mg Q4H PRN ORAL Diarrhea 11/02/18 15:15 12/02/18 15:14 11/04/18 09:43 Lorazepam (Ativan 2mg/ml 1ml) 0.5 mg Q4H PRN IV For Anxiety 10/30/18 14:30 11/06/18 14:29 11/02/18 22:05 Magnesium Hydroxide (Mom) 30 ml HSPRN PRN ORAL Constipation 10/23/18 21:00 11/22/18 20:59 Metoprolol Tartrate (Lopressor) 25 mg EVERY 12 HOURS ORAL 10/23/18 21:00 11/22/18 20:59 11/04/18 09:43 Ondansetron HCl (Zofran) 4 mg Q6H PRN IVP Nausea & Vomiting 10/23/18 14:50 11/22/18 14:49 Oxycodone HCl (Roxicodone) 30 mg Q8H PRN ORAL Mod-severe pain 4-10 10/31/18 19:45 11/07/18 19:44 11/04/18 06:09 Sertraline HCl (Zoloft) 50 mg DAILY ORAL 10/24/18 09:00 11/23/18 08:59 11/04/18 09:43 Tamsulosin HCl (Flomax) 0.4 mg BID ORAL 10/23/18 18:00 11/22/18 17:59 11/04/18 09:43 Trazodone HCl (Desyrel) 50 mg BEDTIME ORAL 10/23/18 21:00 11/22/18 20:59 11/03/18 21:03 Lexy Christiansen MD Nov 04, 2018 12:37
--- NOTE | 2018-11-04 14:41 | General Progress Note ---
Assessment/Plan Problem List: (1) UTI (urinary tract infection) ICD Codes: N39.0 - Urinary tract infection, site not specified SNOMED: 82101078 (2) Depressed ICD Codes: F32.9 - Major depressive disorder, single episode, unspecified SNOMED: 53073132 (3) Cirrhosis ICD Codes: K74.60 - Unspecified cirrhosis of liver SNOMED: 81814449 (4) Thrombocytopenia ICD Codes: D69.6 - Thrombocytopenia, unspecified SNOMED: 673491814 (5) Intractable abdominal pain ICD Codes: R10.9 - Unspecified abdominal pain SNOMED: 83107097, 022804708 (6) Lower GI bleed ICD Codes: K92.2 - Gastrointestinal hemorrhage, unspecified SNOMED: 76429384 (7) Psychosis ICD Codes: F29 - Unspecified psychosis not due to a substance or known physiological condition SNOMED: 16976196 (8) History of CVA (cerebrovascular accident) ICD Codes: Z86.73 - Personal history of transient ischemic attack (TIA), and cerebral infarction without residual deficits SNOMED: 342049298 Status: stable, progressing Assessment/Plan ot pt diet abx per id gi/heme f/u cbc bmp am dc if clear Subjective Constitutional: Reports: weakness Allergies: Coded Allergies: ACETAMINOPHEN (Verified Allergy, Unknown, 08/28/18) ASPIRIN (Verified Allergy, Unknown, 08/28/18) KETOROLAC (Verified Allergy, Unknown, 08/28/18) NSAIDS (NON-STEROIDAL ANTI-INFLAMMA (Verified Allergy, Unknown, 09/09/18) All Systems: reviewed and negative except above Subjective sleepy in bed Objective Last 24 Hour Vital Signs Date Time Temp Pulse Resp B/P (MAP) Pulse Ox O2 Delivery O2 Flow Rate FiO2 11/04/18 13:26 97.9 11/04/18 12:00 97.9 70 20 108/68 (81) 94 11/04/18 09:43 73 122/66 11/04/18 09:00 Room Air 11/04/18 08:00 98.0 73 20 122/66 (84) 94 11/04/18 04:00 98.0 71 19 117/55 (75) 98 11/04/18 00:00 97.2 64 19 103/56 (72) 92 11/03/18 21:03 80 133/62 11/03/18 21:00 Room Air 11/03/18 20:00 97.8 80 19 133/62 (85) 95 11/03/18 16:00 97.0 76 128/57 (80) Intake and Output 11/03/18 11/04/18 19:00 07:00 Intake Total 500 ml 60 ml Output Total 550 ml Balance -50 ml 60 ml Intake Oral 500 ml 60 ml Output Urine Total 550 ml # Voids 3 # Bowel Movements 3 Laboratory Tests 11/04/18 06:05: White Blood Count 5.5, Red Blood Count 4.97, Hemoglobin 13.8L, Hematocrit 43.6, Mean Corpuscular Volume 88, Mean Corpuscular Hemoglobin 27.7, Mean Corpuscular Hemoglobin Concent 31.6L, Red Cell Distribution Width 13.6, Platelet Count 123L , Mean Platelet Volume 7.8, Neutrophils (%) (Auto) 58.9, Lymphocytes (%) (Auto) 27.1, Monocytes (%) (Auto) 10.5H, Eosinophils (%) (Auto) 2.9, Basophils (%) ( Auto) 0.7, Sodium Level 141, Potassium Level 3.8, Chloride Level 108H, Carbon Dioxide Level 30, Anion Gap 3L, Blood Urea Nitrogen 16, Creatinine 1.0, Estimat Glomerular Filtration Rate > 60, Glucose Level 122H, Calcium Level 8.7 Height (Feet): 6 Height (Inches): 4.00 Weight (Pounds): 288 General Appearance: lethargic EENT: normal ENT inspection Neck: normal alignment Cardiovascular: normal peripheral pulses, normal rate, regular rhythm Respiratory/Chest: chest wall non-tender, lungs clear, normal breath sounds Abdomen: normal bowel sounds, non tender, soft Extremities: normal inspection Edema: no edema noted Arm (L), no edema noted Arm (R), no edema noted Leg (L), no edema noted Leg (R), no edema noted Pedal (L), no edema noted Pedal (R), no edema noted Generalized Neurologic: motor weakness Skin: normal pigmentation, warm/dry Roberto Georges DO Nov 04, 2018 14:41
[2018-11-04 16:00] VITALS: BP 120/62
--- NOTE | 2018-11-04 16:58 | General Surgery Progress Note ---
General Surgery-Progress Note Subjective Symptoms: improved, tolerating diet, passing flatus, BM Objective Last 24 Hour Vital Signs Date Time Temp Pulse Resp B/P (MAP) Pulse Ox O2 Delivery O2 Flow Rate FiO2 11/04/18 16:00 99.0 81 20 120/62 (81) 93 11/04/18 13:26 97.9 11/04/18 12:00 97.9 70 20 108/68 (81) 94 11/04/18 09:43 73 122/66 11/04/18 09:00 Room Air 11/04/18 08:00 98.0 73 20 122/66 (84) 94 11/04/18 04:00 98.0 71 19 117/55 (75) 98 11/04/18 00:00 97.2 64 19 103/56 (72) 92 11/03/18 21:03 80 133/62 11/03/18 21:00 Room Air 11/03/18 20:00 97.8 80 19 133/62 (85) 95 I&O Intake and Output 11/03/18 11/04/18 19:00 07:00 Intake Total 500 ml 60 ml Output Total 550 ml Balance -50 ml 60 ml Intake Oral 500 ml 60 ml Output Urine Total 550 ml # Voids 3 # Bowel Movements 3 Drains: none Cardiovascular: RSR Respiratory: clear Abdomen: soft, flat, non-tender, present bowel sounds Extremities: no tenderness, no cyanosis Laboratory Tests Test 11/04/18 06:05 White Blood Count 5.5 K/UL (4.8-10.8) Red Blood Count 4.97 M/UL (4.70-6.10) Hemoglobin 13.8 G/DL (14.2-18.0) L Hematocrit 43.6 % (42.0-52.0) Mean Corpuscular Volume 88 FL (80-99) Mean Corpuscular Hemoglobin 27.7 PG (27.0-31.0) Mean Corpuscular Hemoglobin Concent 31.6 G/DL (32.0-36.0) L Red Cell Distribution Width 13.6 % (11.6-14.8) Platelet Count 123 K/UL (150-450) L Mean Platelet Volume 7.8 FL (6.5-10.1) Neutrophils (%) (Auto) 58.9 % (45.0-75.0) Lymphocytes (%) (Auto) 27.1 % (20.0-45.0) Monocytes (%) (Auto) 10.5 % (1.0-10.0) H Eosinophils (%) (Auto) 2.9 % (0.0-3.0) Basophils (%) (Auto) 0.7 % (0.0-2.0) Sodium Level 141 MMOL/L (136-145) Potassium Level 3.8 MMOL/L (3.5-5.1) Chloride Level 108 MMOL/L (98-107) H Carbon Dioxide Level 30 MMOL/L (21-32) Anion Gap 3 mmol/L (5-15) L Blood Urea Nitrogen 16 mg/dL (7-18) Creatinine 1.0 MG/DL (0.55-1.30) Estimat Glomerular Filtration Rate > 60 mL/min (>60) Glucose Level 122 MG/DL (74-106) H Calcium Level 8.7 MG/DL (8.5-10.1) Plan Problems: (1) Intractable abdominal pain Assessment & Plan: improving US noted CT noted pain resolved -okay for diet -no surgical intervention planned -okay to d/c from surgical standpoint thank you will follow with Rashid Bond Nov 04, 2018 16:57
[2018-11-04 20:00] VITALS: BP 115/65
--- NOTE | 2018-11-04 20:00 | Progress Note ---
DATE: 11/04/2018 SUBJECTIVE: This is a 52-year-old patient with flank pain, some confusion, disorganized thought process, and some mood lability, worsened by stress medical illness, so the attending has requested daily psychiatric consultation for his mood lability. MENTAL STATUS EXAMINATION: The patient is a 52-year-old male. Appearance is disheveled. Attitude, irritable and agitated. Affect, guarded and restricted. Intellect poor. Mood depressed and anxious. Motor activity, psychomotor agitation. Attention span is poor. Orientation x2. Speech is pressured. Thought process, disorganized and illogical. Thought content, auditory hallucinations and paranoid delusions. Insight and judgment is poor. DIAGNOSIS: Schizoaffective, bipolar type. PLAN: Continue to treat this patient with a medication regimen of Depakote and Abilify. Provide him with medication regimen of Zoloft 50 mg daily and Abilify 5 mg daily. Provide him with 20 minutes of cognitive behavior therapy automatic negative thoughts of supportive negative thoughts to more positive thinking to reduce depression, anxiety, and suicidality. Chart reviewed. Discussed with staff. A 20 minutes of cognitive behavioral therapy provided. Amy Benites M.D. DR: CALVIN/LOC JOB#: [id number] CC:
[2018-11-04] MEDS: TraZODone 50mg tab ORAL SCH (20:50)
[2018-11-05] VITALS: BP 118/63
[2018-11-05 04:00] VITALS: BP 128/55
[2018-11-05] MEDS: oxyCODONE 15mg IR tab ORAL PRN ×2 (07:55→20:44)
[2018-11-05 07:58] LABS: BASOPHILS % (AUTO) 0.9 % (0.0-2.0); EOSINOPHILS % (AUTO) 2.9 % (0.0-3.0); HEMATOCRIT 42.4 % (42.0-52.0); HEMOGLOBIN 13.4 G/DL (14.2-18.0); LYMPHOCYTES % (AUTO) 26.4 % (20.0-45.0); MEAN CORPUSCULAR VOLUME 88 FL (80-99); NEUTROPHILS % (AUTO) 60.9 % (45.0-75.0); PLATELET COUNT 119 K/UL (150-450); RED BLOOD COUNT 4.84 M/UL (4.70-6.10); RED CELL DISTRIBUTION WIDTH 13.7 % (11.6-14.8); WHITE BLOOD COUNT 5.7 K/UL (4.8-10.8)
[2018-11-05 08:00] VITALS: BP 125/71
[2018-11-05] MEDS: Metoprolol 25mg tab ORAL SCH ×2 (08:00→20:43)
[2018-11-05] MEDS: Tamsulosin 0.4mg cap ORAL SCH ×2 (08:00→17:24)
[2018-11-05] MEDS: Sertraline 50mg tab ORAL SCH (08:00)
[2018-11-05 08:20] LABS: ANION GAP 10 mmol/L (5-15); BLOOD UREA NITROGEN 12 mg/dL (7-18); CALCIUM 8.5 MG/DL (8.5-10.1); CARBON DIOXIDE 25 MMOL/L (21-32); CHLORIDE 107 MMOL/L (98-107); CREATININE 0.9 MG/DL (0.55-1.30); POTASSIUM 3.4 MMOL/L (3.5-5.1); SODIUM 141 MMOL/L (136-145)
[2018-11-05] MEDS: Docusate 100mg cap ORAL SCH ×3 (09:00→18:00)
--- NOTE | 2018-11-05 11:36 | General Surgery Progress Note ---
General Surgery-Progress Note Subjective Additional Comments doing well. improving. comfortable. much less edema Objective Last 24 Hour Vital Signs Date Time Temp Pulse Resp B/P (MAP) Pulse Ox O2 Delivery O2 Flow Rate FiO2 11/05/18 08:30 98.2 11/05/18 08:00 97.5 82 20 125/71 (89) 93 11/05/18 08:00 84 128/55 11/05/18 07:48 Room Air 11/05/18 04:00 98.2 84 18 128/55 (79) 94 11/05/18 00:00 98.0 92 18 118/63 (81) 96 11/04/18 21:00 Room Air 11/04/18 20:51 95 115/65 11/04/18 20:00 99.4 95 20 115/65 (82) 93 11/04/18 16:00 99.0 81 20 120/62 (81) 93 11/04/18 12:00 97.9 70 20 108/68 (81) 94 I&O Intake and Output 11/04/18 11/05/18 19:00 07:00 Intake Total 1360 ml Output Total 1200 ml 500 ml Balance 160 ml -500 ml Intake Oral 1360 ml Output Urine Total 1200 ml 500 ml Wound: clean, dry, intact Drains: none Cardiovascular: RSR Respiratory: clear Abdomen: soft, flat, non-tender, present bowel sounds Extremities: no tenderness, no cyanosis Laboratory Tests Test 11/05/18 06:32 White Blood Count 5.7 K/UL (4.8-10.8) Red Blood Count 4.84 M/UL (4.70-6.10) Hemoglobin 13.4 G/DL (14.2-18.0) L Hematocrit 42.4 % (42.0-52.0) Mean Corpuscular Volume 88 FL (80-99) Mean Corpuscular Hemoglobin 27.7 PG (27.0-31.0) Mean Corpuscular Hemoglobin Concent 31.6 G/DL (32.0-36.0) L Red Cell Distribution Width 13.7 % (11.6-14.8) Platelet Count 119 K/UL (150-450) L Mean Platelet Volume 7.6 FL (6.5-10.1) Neutrophils (%) (Auto) 60.9 % (45.0-75.0) Lymphocytes (%) (Auto) 26.4 % (20.0-45.0) Monocytes (%) (Auto) 9.0 % (1.0-10.0) Eosinophils (%) (Auto) 2.9 % (0.0-3.0) Basophils (%) (Auto) 0.9 % (0.0-2.0) Sodium Level 141 MMOL/L (136-145) Potassium Level 3.4 MMOL/L (3.5-5.1) L Chloride Level 107 MMOL/L (98-107) Carbon Dioxide Level 25 MMOL/L (21-32) Anion Gap 10 mmol/L (5-15) Blood Urea Nitrogen 12 mg/dL (7-18) Creatinine 0.9 MG/DL (0.55-1.30) Estimat Glomerular Filtration Rate > 60 mL/min (>60) Glucose Level 123 MG/DL (74-106) H Calcium Level 8.5 MG/DL (8.5-10.1) Plan Problems: (1) Intractable abdominal pain Assessment & Plan: improving US noted CT noted pain resolved wounds on legs improved -okay for diet -no surgical intervention planned -okay to d/c from surgical standpoint thank you will follow with Rashid Bond Nov 05, 2018 11:36
[2018-11-05 12:00] VITALS: BP_SYST 124; BP_SYST 131; BP_DIAS 72; BP_DIAS 83
--- NOTE | 2018-11-05 13:52 | General Progress Note ---
Assessment/Plan Problem List: (1) UTI (urinary tract infection) ICD Codes: N39.0 - Urinary tract infection, site not specified SNOMED: 07890109 (2) Depressed ICD Codes: F32.9 - Major depressive disorder, single episode, unspecified SNOMED: 66723753 (3) Cirrhosis ICD Codes: K74.60 - Unspecified cirrhosis of liver SNOMED: 30932066 (4) Thrombocytopenia ICD Codes: D69.6 - Thrombocytopenia, unspecified SNOMED: 785714322 (5) Intractable abdominal pain ICD Codes: R10.9 - Unspecified abdominal pain SNOMED: 40559809, 311537574 (6) Lower GI bleed ICD Codes: K92.2 - Gastrointestinal hemorrhage, unspecified SNOMED: 93914825 (7) Psychosis ICD Codes: F29 - Unspecified psychosis not due to a substance or known physiological condition SNOMED: 98412017 (8) History of CVA (cerebrovascular accident) ICD Codes: Z86.73 - Personal history of transient ischemic attack (TIA), and cerebral infarction without residual deficits SNOMED: 057253341 Status: stable, progressing Assessment/Plan ot pt diet abx per id gi/heme f/u cbc bmp am dc if clear Subjective Constitutional: Reports: weakness Allergies: Coded Allergies: ACETAMINOPHEN (Verified Allergy, Unknown, 08/28/18) ASPIRIN (Verified Allergy, Unknown, 08/28/18) KETOROLAC (Verified Allergy, Unknown, 08/28/18) NSAIDS (NON-STEROIDAL ANTI-INFLAMMA (Verified Allergy, Unknown, 09/09/18) All Systems: reviewed and negative except above Subjective sleepy in bed Objective Last 24 Hour Vital Signs Date Time Temp Pulse Resp B/P (MAP) Pulse Ox O2 Delivery O2 Flow Rate FiO2 11/05/18 13:04 98.8 11/05/18 12:00 98.8 72 20 124/72 (89) 95 11/05/18 08:00 97.5 82 20 125/71 (89) 93 11/05/18 08:00 84 128/55 11/05/18 07:48 Room Air 11/05/18 04:00 98.2 84 18 128/55 (79) 94 11/05/18 00:00 98.0 92 18 118/63 (81) 96 11/04/18 21:00 Room Air 11/04/18 20:51 95 115/65 11/04/18 20:00 99.4 95 20 115/65 (82) 93 11/04/18 16:00 99.0 81 20 120/62 (81) 93 Intake and Output 11/04/18 11/05/18 19:00 07:00 Intake Total 1360 ml Output Total 1200 ml 500 ml Balance 160 ml -500 ml Intake Oral 1360 ml Output Urine Total 1200 ml 500 ml Laboratory Tests 11/05/18 06:32: White Blood Count 5.7, Red Blood Count 4.84, Hemoglobin 13.4L, Hematocrit 42.4, Mean Corpuscular Volume 88, Mean Corpuscular Hemoglobin 27.7, Mean Corpuscular Hemoglobin Concent 31.6L, Red Cell Distribution Width 13.7, Platelet Count 119L , Mean Platelet Volume 7.6, Neutrophils (%) (Auto) 60.9, Lymphocytes (%) (Auto) 26.4, Monocytes (%) (Auto) 9.0, Eosinophils (%) (Auto) 2.9, Basophils (%) (Auto ) 0.9, Sodium Level 141, Potassium Level 3.4L, Chloride Level 107, Carbon Dioxide Level 25, Anion Gap 10, Blood Urea Nitrogen 12, Creatinine 0.9, Estimat Glomerular Filtration Rate > 60, Glucose Level 123H, Calcium Level 8.5 Height (Feet): 6 Height (Inches): 4.00 Weight (Pounds): 288 General Appearance: lethargic EENT: normal ENT inspection Neck: normal alignment Cardiovascular: normal peripheral pulses, normal rate, regular rhythm Respiratory/Chest: chest wall non-tender, lungs clear, normal breath sounds Abdomen: normal bowel sounds, non tender, soft Extremities: normal inspection Edema: no edema noted Arm (L), no edema noted Arm (R), no edema noted Leg (L), no edema noted Leg (R), no edema noted Pedal (L), no edema noted Pedal (R), no edema noted Generalized Neurologic: motor weakness Skin: normal pigmentation, warm/dry Roberto Georges DO Nov 05, 2018 13:52
--- NOTE | 2018-11-05 15:10 | GI Progress Note ---
Assessment/Plan Problems: (1) Diarrhea ICD Codes: R19.7 - Diarrhea, unspecified SNOMED: 42862514 (2) Psychosis ICD Codes: F29 - Unspecified psychosis not due to a substance or known physiological condition SNOMED: 26038750 (3) Depressed ICD Codes: F32.9 - Major depressive disorder, single episode, unspecified SNOMED: 06554456 (4) Cirrhosis ICD Codes: K74.60 - Unspecified cirrhosis of liver SNOMED: 43264184 (5) Lower GI bleed ICD Codes: K92.2 - Gastrointestinal hemorrhage, unspecified SNOMED: 26278461 Status: stable Status Narrative Discussed with Dr. Ramos Assessment/Plan colonoscopy cancelled, patient unable to tolerate prep given no anemia and no recurrent bleed, will follow up as an outpatient KUB for abdominal distention >> unremarkable hep panel still pending after a week advance diet titrate bowel regime prn transfusion possible history of Hep C cirrhosis, fu labs pain mgmt zofran prn Imodium as needed fu labs outpatient GI procedures The patient was seen and examined at bedside and all new and available data was reviewed in the patients chart. I agree with the above findings, impression and plan. (Patient seen earlier today. Signature stamp does not reflect patient encounter time.). - Arthur Ramos MD Subjective Subjective abdominal pain abdominal distention improved Patient continues to complain of mild diarrhea, improved Objective Last 24 Hour Vital Signs Date Time Temp Pulse Resp B/P (MAP) Pulse Ox O2 Delivery O2 Flow Rate FiO2 11/05/18 13:04 98.8 11/05/18 12:00 98.8 72 20 124/72 (89) 95 11/05/18 08:00 97.5 82 20 125/71 (89) 93 11/05/18 08:00 84 128/55 11/05/18 07:48 Room Air 11/05/18 04:00 98.2 84 18 128/55 (79) 94 11/05/18 00:00 98.0 92 18 118/63 (81) 96 11/04/18 21:00 Room Air 11/04/18 20:51 95 115/65 11/04/18 20:00 99.4 95 20 115/65 (82) 93 11/04/18 16:00 99.0 81 20 120/62 (81) 93 Intake and Output 11/04/18 11/05/18 19:00 07:00 Intake Total 1360 ml Output Total 1200 ml 500 ml Balance 160 ml -500 ml Intake Oral 1360 ml Output Urine Total 1200 ml 500 ml Laboratory Tests Test 11/05/18 06:32 White Blood Count 5.7 K/UL (4.8-10.8) Red Blood Count 4.84 M/UL (4.70-6.10) Hemoglobin 13.4 G/DL (14.2-18.0) L Hematocrit 42.4 % (42.0-52.0) Mean Corpuscular Volume 88 FL (80-99) Mean Corpuscular Hemoglobin 27.7 PG (27.0-31.0) Mean Corpuscular Hemoglobin Concent 31.6 G/DL (32.0-36.0) L Red Cell Distribution Width 13.7 % (11.6-14.8) Platelet Count 119 K/UL (150-450) L Mean Platelet Volume 7.6 FL (6.5-10.1) Neutrophils (%) (Auto) 60.9 % (45.0-75.0) Lymphocytes (%) (Auto) 26.4 % (20.0-45.0) Monocytes (%) (Auto) 9.0 % (1.0-10.0) Eosinophils (%) (Auto) 2.9 % (0.0-3.0) Basophils (%) (Auto) 0.9 % (0.0-2.0) Sodium Level 141 MMOL/L (136-145) Potassium Level 3.4 MMOL/L (3.5-5.1) L Chloride Level 107 MMOL/L (98-107) Carbon Dioxide Level 25 MMOL/L (21-32) Anion Gap 10 mmol/L (5-15) Blood Urea Nitrogen 12 mg/dL (7-18) Creatinine 0.9 MG/DL (0.55-1.30) Estimat Glomerular Filtration Rate > 60 mL/min (>60) Glucose Level 123 MG/DL (74-106) H Calcium Level 8.5 MG/DL (8.5-10.1) Height (Feet): 6 Height (Inches): 4.00 Weight (Pounds): 288 General Appearance: WD/WN, no apparent distress, alert Cardiovascular: normal rate Respiratory/Chest: normal breath sounds, no respiratory distress Abdominal Exam: normal bowel sounds, non tender, soft Extremities: normal range of motion, non-tender Santiago Rouse NP Nov 05, 2018 15:10
[2018-11-05 16:00] VITALS: BP 117/56
--- NOTE | 2018-11-05 16:31 | Infectious Diseases Prog Note ---
Assessment/Plan Assessment/Plan Assessment/Plan Low grade fever, SP -CXR: No acute process. Borderline cardiomegaly No leukocytosis GIB RLQ pain- 2ry to hepatitis -Abd US: Cholelithiasis with apparent wall thickening measuring 3 - 4 mm. Negative sonographic Cook sign. -CT abd/p : Liver: Fatty and slightly nodular liver. Correlate for cirrhosis. Gallbladder and bile ducts: Cholelithiasis. Elevated LFTs, improving Hx of Hep C,p robable cirrhosis -Hep C ab and VL P -Hep A not immune, Hep B immune and +Bc ab -HIV ab sc and VL neg 11/03 Cdiff neg psychosis HTN prostate surgery laminectomy GERD cholelithiasis duodenal diverticulum constipation BPH MDD rheumatic fever 1990 CVA 2012 with left sided weakness nephrolithiasis renal stent senior care resident Plan: -Continue to monitor off abx as clinically stable -f/u cx -Monitor CBC/C MP, temperatures -f/u hep serologies -GI, Sx f/u Thank you for this consultation. Will continue to follow along with you. Discussed with RN. Subjective Allergies: Coded Allergies: ACETAMINOPHEN (Verified Allergy, Unknown, 08/28/18) ASPIRIN (Verified Allergy, Unknown, 08/28/18) KETOROLAC (Verified Allergy, Unknown, 08/28/18) NSAIDS (NON-STEROIDAL ANTI-INFLAMMA (Verified Allergy, Unknown, 09/09/18) Subjective afebrile no leukocytosis hep C ab p Objective Vital Signs Last 24 Hour Vital Signs Date Time Temp Pulse Resp B/P (MAP) Pulse Ox O2 Delivery O2 Flow Rate FiO2 11/05/18 16:00 96.8 77 20 117/56 (76) 95 11/05/18 13:04 98.8 11/05/18 12:00 98.8 72 20 124/72 (89) 95 11/05/18 08:00 97.5 82 20 125/71 (89) 93 11/05/18 08:00 84 128/55 11/05/18 07:48 Room Air 11/05/18 04:00 98.2 84 18 128/55 (79) 94 11/05/18 00:00 98.0 92 18 118/63 (81) 96 11/04/18 21:00 Room Air 11/04/18 20:51 95 115/65 11/04/18 20:00 99.4 95 20 115/65 (82) 93 Height (Feet): 6 Height (Inches): 4.00 Weight (Pounds): 288 Objective GENERAL: Calm in bed, oriented x2, slight distress secondary to abdominal pain. CARDIOVASCULAR: No murmur. LUNGS: Distant and clear. ABDOMEN: Bowel sound positive. Slightly tender. No guarding. No rigidity. No rebound. EXTREMITIES: No cyanosis, clubbing, or edema. NEUROLOGIC: The patient moves all extremities, slightly weak. Microbiology Date/Time Source Procedure Growth Status 11/03/18 15:30 Stool Clostridium difficile Toxin Assay - Final Complete Laboratory Tests Test 11/05/18 06:32 White Blood Count 5.7 K/UL (4.8-10.8) Red Blood Count 4.84 M/UL (4.70-6.10) Hemoglobin 13.4 G/DL (14.2-18.0) L Hematocrit 42.4 % (42.0-52.0) Mean Corpuscular Volume 88 FL (80-99) Mean Corpuscular Hemoglobin 27.7 PG (27.0-31.0) Mean Corpuscular Hemoglobin Concent 31.6 G/DL (32.0-36.0) L Red Cell Distribution Width 13.7 % (11.6-14.8) Platelet Count 119 K/UL (150-450) L Mean Platelet Volume 7.6 FL (6.5-10.1) Neutrophils (%) (Auto) 60.9 % (45.0-75.0) Lymphocytes (%) (Auto) 26.4 % (20.0-45.0) Monocytes (%) (Auto) 9.0 % (1.0-10.0) Eosinophils (%) (Auto) 2.9 % (0.0-3.0) Basophils (%) (Auto) 0.9 % (0.0-2.0) Sodium Level 141 MMOL/L (136-145) Potassium Level 3.4 MMOL/L (3.5-5.1) L Chloride Level 107 MMOL/L (98-107) Carbon Dioxide Level 25 MMOL/L (21-32) Anion Gap 10 mmol/L (5-15) Blood Urea Nitrogen 12 mg/dL (7-18) Creatinine 0.9 MG/DL (0.55-1.30) Estimat Glomerular Filtration Rate > 60 mL/min (>60) Glucose Level 123 MG/DL (74-106) H Calcium Level 8.5 MG/DL (8.5-10.1) Current Medications Medications (Trade) Dose Ordered Sig/Hugo Route PRN Reason Start Time Stop Time Status Last Admin Dose Admin Al Hydroxide/Mg Hydroxide (Mylanta II) 30 ml Q6H PRN ORAL dyspepsia 10/23/18 14:50 11/22/18 14:49 Aripiprazole (Abilify) 5 mg BEDTIME ORAL 10/23/18 21:00 11/22/18 20:59 11/04/18 20:50 Carisoprodol (Soma) 350 mg THREE TIMES A DAY ORAL 10/25/18 18:00 11/22/18 21:59 11/05/18 12:34 Dextrose (Dextrose 50%) 25 ml Q30M PRN IV Hypoglycemia 10/23/18 14:51 11/22/18 14:50 Dextrose (Dextrose 50%) 50 ml Q30M PRN IV Hypoglycemia 10/23/18 14:51 11/22/18 14:50 Diphenhydramine HCl (Benadryl) 25 mg Q6H PRN ORAL Itching/Pruritis 10/23/18 14:50 11/22/18 14:49 10/24/18 06:40 Docusate Sodium (Colace) 100 mg TID ORAL 10/25/18 18:00 11/22/18 20:59 10/31/18 09:04 Famotidine (Pepcid) 20 mg Q12HR ORAL 10/28/18 09:00 11/27/18 08:59 11/05/18 08:00 Gabapentin (Neurontin) 600 mg THREE TIMES A DAY ORAL 10/23/18 18:00 11/22/18 17:59 11/05/18 12:34 Loperamide HCl (Imodium) 2 mg Q4H PRN ORAL Diarrhea 11/02/18 15:15 12/02/18 15:14 11/04/18 09:43 Lorazepam (Ativan 2mg/ml 1ml) 0.5 mg Q4H PRN IV For Anxiety 10/30/18 14:30 11/06/18 14:29 11/02/18 22:05 Magnesium Hydroxide (Mom) 30 ml HSPRN PRN ORAL Constipation 10/23/18 21:00 11/22/18 20:59 Metoprolol Tartrate (Lopressor) 25 mg EVERY 12 HOURS ORAL 10/23/18 21:00 11/22/18 20:59 11/05/18 08:00 Ondansetron HCl (Zofran) 4 mg Q6H PRN IVP Nausea & Vomiting 10/23/18 14:50 11/22/18 14:49 Oxycodone HCl (Roxicodone) 30 mg Q8H PRN ORAL Mod-severe pain 4-10 10/31/18 19:45 11/07/18 19:44 11/05/18 07:55 Sertraline HCl (Zoloft) 50 mg DAILY ORAL 10/24/18 09:00 11/23/18 08:59 11/05/18 08:00 Tamsulosin HCl (Flomax) 0.4 mg BID ORAL 10/23/18 18:00 11/22/18 17:59 11/05/18 08:00 Trazodone HCl (Desyrel) 50 mg BEDTIME ORAL 10/23/18 21:00 11/22/18 20:59 11/04/18 20:50 Nesha aPrk M.D. Nov 05, 2018 16:31
--- NOTE | 2018-11-05 17:15 | Progress Note ---
DATE: 11/05/2018 SUBJECTIVE: This is a 52-year-old male patient with flank pain. The patient continues to have some mood lability, confusion, and disorganized thought process worsened by stress of his medical illness. This patient does have some mood lability, confusion, altered mental status that is why his attending has requested daily psychiatric consultation. MENTAL STATUS EXAMINATION: This is a 52-year-old male. Appearance is disheveled. Attitude, irritable and agitated. Affect, guarded and restricted. Intellect poor. Mood depressed and anxious. Motor activity, psychomotor agitation. Attention span is poor. Orientation x2. Speech is pressured. Thought process, disorganized and illogical. Thought content, auditory hallucinations and paranoid delusions. Insight and judgment is poor. DIAGNOSIS: Paranoid schizophrenia with acute exacerbation. PLAN: Treat the patient with Ability 5 mg daily, Zoloft 50 mg daily. Provided him with 20 minutes of psychotherapy. A 20 minutes of cognitive behavioral therapy will be provided. Continue to treat this patient with Abilify and Zoloft. Provided with 20 minutes of cognitive behavioral therapy to help the thoughts or negative thoughts to more positive to reduce depression, anxiety, suicidality and help him have a more time . Chart reviewed. Discussed with staff. Amy Benites M.D. DR: SEVERINO JOB#: [id number] CC:
[2018-11-05 20:00] VITALS: BP 119/52
[2018-11-05] MEDS: TraZODone 50mg tab ORAL SCH (20:44)
[2018-11-06] VITALS: BP 132/62
[2018-11-06 04:00] VITALS: BP 107/49
[2018-11-06] MEDS: oxyCODONE 15mg IR tab ORAL PRN (04:48)
[2018-11-06 07:38] LABS: ANION GAP 6 mmol/L (5-15); BASOPHILS % (AUTO) 0.6 % (0.0-2.0); BLOOD UREA NITROGEN 12 mg/dL (7-18); CALCIUM 8.6 MG/DL (8.5-10.1); CARBON DIOXIDE 27 MMOL/L (21-32); CHLORIDE 109 MMOL/L (98-107); CREATININE 0.8 MG/DL (0.55-1.30); EOSINOPHILS % (AUTO) 2.8 % (0.0-3.0); HEMATOCRIT 41.5 % (42.0-52.0); HEMOGLOBIN 13.2 G/DL (14.2-18.0); LYMPHOCYTES % (AUTO) 29.8 % (20.0-45.0); MEAN CORPUSCULAR VOLUME 87 FL (80-99); MONOCYTES % (AUTO) 10.1 % (1.0-10.0); NEUTROPHILS % (AUTO) 56.7 % (45.0-75.0); PLATELET COUNT 124 K/UL (150-450); RED BLOOD COUNT 4.76 M/UL (4.70-6.10); RED CELL DISTRIBUTION WIDTH 13.6 % (11.6-14.8); SODIUM 142 MMOL/L (136-145)
[2018-11-06 08:00] VITALS: BP 109/56
--- NOTE | 2018-11-06 08:22 | General Progress Note ---
Assessment/Plan Assessment/Plan colonoscopy cancelled, patient unable to tolerate prep given no anemia and no recurrent bleed, will follow up as an outpatient KUB for abdominal distention >> unremarkable hep panel still pending after a week titrate bowel regime prn transfusion possible history of Hep C cirrhosis, fu labs pain mgmt zofran prn Imodium as needed fu labs outpatient GI procedures Subjective ROS Limited/Unobtainable: Yes Allergies: Coded Allergies: ACETAMINOPHEN (Verified Allergy, Unknown, 08/28/18) ASPIRIN (Verified Allergy, Unknown, 08/28/18) KETOROLAC (Verified Allergy, Unknown, 08/28/18) NSAIDS (NON-STEROIDAL ANTI-INFLAMMA (Verified Allergy, Unknown, 09/09/18) Objective Last 24 Hour Vital Signs Date Time Temp Pulse Resp B/P (MAP) Pulse Ox O2 Delivery O2 Flow Rate FiO2 11/06/18 04:00 97.3 62 18 107/49 (68) 93 11/06/18 00:00 97.5 72 18 132/62 (85) 94 11/05/18 21:00 Room Air 11/05/18 20:43 74 119/52 11/05/18 20:00 97.4 74 19 119/52 (74) 94 11/05/18 17:54 96.8 11/05/18 16:00 96.8 77 20 117/56 (76) 95 11/05/18 12:00 98.8 72 20 124/72 (89) 95 Intake and Output 11/05/18 11/06/18 18:59 06:59 Intake Total 720 ml Output Total 500 ml 400 ml Balance 220 ml -400 ml Intake Oral 720 ml Output Urine Total 500 ml 400 ml Laboratory Tests 11/06/18 06:39: White Blood Count 5.0, Red Blood Count 4.76, Hemoglobin 13.2L, Hematocrit 41.5L , Mean Corpuscular Volume 87, Mean Corpuscular Hemoglobin 27.8, Mean Corpuscular Hemoglobin Concent 31.9L, Red Cell Distribution Width 13.6, Platelet Count 124L, Mean Platelet Volume 8.4, Neutrophils (%) (Auto) 56.7, Lymphocytes (%) (Auto) 29.8, Monocytes (%) (Auto) 10.1H, Eosinophils (%) (Auto) 2.8, Basophils (%) (Auto) 0.6, Sodium Level 142, Potassium Level 4.0, Chloride Level 109H, Carbon Dioxide Level 27, Anion Gap 6, Blood Urea Nitrogen 12, Creatinine 0.8, Estimat Glomerular Filtration Rate > 60, Glucose Level 96, Calcium Level 8.6 Height (Feet): 6 Height (Inches): 4.00 Weight (Pounds): 288 General Appearance: alert EENT: normal ENT inspection Neck: supple Cardiovascular: normal rate Respiratory/Chest: decreased breath sounds Abdomen: normal bowel sounds, non tender, soft Extremities: non-tender Arthur Ramos MD Nov 06, 2018 08:22
--- NOTE | 2018-11-06 08:26 | General Progress Note ---
Assessment/Plan Problem List: (1) UTI (urinary tract infection) ICD Codes: N39.0 - Urinary tract infection, site not specified SNOMED: 29230399 (2) Depressed ICD Codes: F32.9 - Major depressive disorder, single episode, unspecified SNOMED: 62970303 (3) Cirrhosis ICD Codes: K74.60 - Unspecified cirrhosis of liver SNOMED: 38710001 (4) Thrombocytopenia ICD Codes: D69.6 - Thrombocytopenia, unspecified SNOMED: 368338463 (5) Intractable abdominal pain ICD Codes: R10.9 - Unspecified abdominal pain SNOMED: 89247744, 958366852 (6) Lower GI bleed ICD Codes: K92.2 - Gastrointestinal hemorrhage, unspecified SNOMED: 13994371 (7) Psychosis ICD Codes: F29 - Unspecified psychosis not due to a substance or known physiological condition SNOMED: 10891720 (8) History of CVA (cerebrovascular accident) ICD Codes: Z86.73 - Personal history of transient ischemic attack (TIA), and cerebral infarction without residual deficits SNOMED: 544704070 Status: stable, progressing Assessment/Plan ot pt diet abx per id gi/heme f/u dc if clear Subjective Constitutional: Reports: weakness Allergies: Coded Allergies: ACETAMINOPHEN (Verified Allergy, Unknown, 08/28/18) ASPIRIN (Verified Allergy, Unknown, 08/28/18) KETOROLAC (Verified Allergy, Unknown, 08/28/18) NSAIDS (NON-STEROIDAL ANTI-INFLAMMA (Verified Allergy, Unknown, 09/09/18) All Systems: reviewed and negative except above Subjective sleepy in bed Objective Last 24 Hour Vital Signs Date Time Temp Pulse Resp B/P (MAP) Pulse Ox O2 Delivery O2 Flow Rate FiO2 11/06/18 04:00 97.3 62 18 107/49 (68) 93 11/06/18 00:00 97.5 72 18 132/62 (85) 94 11/05/18 21:00 Room Air 11/05/18 20:43 74 119/52 11/05/18 20:00 97.4 74 19 119/52 (74) 94 11/05/18 17:54 96.8 11/05/18 16:00 96.8 77 20 117/56 (76) 95 11/05/18 12:00 98.8 72 20 124/72 (89) 95 Intake and Output 12/21/18 12/22/18 18:59 06:59 Intake Total 720 ml Output Total 500 ml 400 ml Balance 220 ml -400 ml Intake Oral 720 ml Output Urine Total 500 ml 400 ml Laboratory Tests 11/06/18 06:39: White Blood Count 5.0, Red Blood Count 4.76, Hemoglobin 13.2L, Hematocrit 41.5L , Mean Corpuscular Volume 87, Mean Corpuscular Hemoglobin 27.8, Mean Corpuscular Hemoglobin Concent 31.9L, Red Cell Distribution Width 13.6, Platelet Count 124L, Mean Platelet Volume 8.4, Neutrophils (%) (Auto) 56.7, Lymphocytes (%) (Auto) 29.8, Monocytes (%) (Auto) 10.1H, Eosinophils (%) (Auto) 2.8, Basophils (%) (Auto) 0.6, Sodium Level 142, Potassium Level 4.0, Chloride Level 109H, Carbon Dioxide Level 27, Anion Gap 6, Blood Urea Nitrogen 12, Creatinine 0.8, Estimat Glomerular Filtration Rate > 60, Glucose Level 96, Calcium Level 8.6 Height (Feet): 6 Height (Inches): 4.00 Weight (Pounds): 288 General Appearance: lethargic EENT: normal ENT inspection Neck: normal alignment Cardiovascular: normal peripheral pulses, normal rate, regular rhythm Respiratory/Chest: chest wall non-tender, lungs clear, normal breath sounds Abdomen: normal bowel sounds, non tender, soft Extremities: normal inspection Edema: no edema noted Arm (L), no edema noted Arm (R), no edema noted Leg (L), no edema noted Leg (R), no edema noted Pedal (L), no edema noted Pedal (R), no edema noted Generalized Neurologic: motor weakness Skin: normal pigmentation, warm/dry Roberto Georges DO Nov 06, 2018 08:26
[2018-11-06] MEDS: Metoprolol 25mg tab ORAL SCH ×2 (09:00→20:20)
[2018-11-06] MEDS: Sertraline 50mg tab ORAL SCH (09:26)
[2018-11-06] MEDS: Tamsulosin 0.4mg cap ORAL SCH ×2 (09:28→17:19)
[2018-11-06] MEDS: Docusate 100mg cap ORAL SCH ×3 (09:28→17:19)
--- NOTE | 2018-11-06 10:10 | Infectious Diseases Prog Note ---
Assessment/Plan Assessment/Plan Assessment/Plan Low grade fever, SP -CXR: No acute process. Borderline cardiomegaly No leukocytosis GIB RLQ pain- 2ry to hepatitis; improving -Abd US: Cholelithiasis with apparent wall thickening measuring 3 - 4 mm. Negative sonographic Cook sign. -CT abd/p : Liver: Fatty and slightly nodular liver. Correlate for cirrhosis. Gallbladder and bile ducts: Cholelithiasis. 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 Thank you for this consultation. Will continue to follow along with you. Discussed with RN. Subjective Allergies: Coded Allergies: ACETAMINOPHEN (Verified Allergy, Unknown, 08/28/18) ASPIRIN (Verified Allergy, Unknown, 08/28/18) KETOROLAC (Verified Allergy, Unknown, 08/28/18) NSAIDS (NON-STEROIDAL ANTI-INFLAMMA (Verified Allergy, Unknown, 09/09/18) Subjective afebrile no leukocytosis Objective Vital Signs Last 24 Hour Vital Signs Date Time Temp Pulse Resp B/P (MAP) Pulse Ox O2 Delivery O2 Flow Rate FiO2 11/06/18 09:58 97.3 11/06/18 09:00 Room Air 11/06/18 09:00 62 107/49 11/06/18 08:00 98.3 66 18 109/56 (73) 94 11/06/18 04:00 97.3 62 18 107/49 (68) 93 11/06/18 00:00 97.5 72 18 132/62 (85) 94 11/05/18 21:00 Room Air 11/05/18 20:43 74 119/52 11/05/18 20:00 97.4 74 19 119/52 (74) 94 11/05/18 16:00 96.8 77 20 117/56 (76) 95 11/05/18 12:00 98.8 72 20 124/72 (89) 95 Height (Feet): 6 Height (Inches): 4.00 Weight (Pounds): 288 Objective GENERAL: Calm in bed, oriented x2, slight distress secondary to abdominal pain. CARDIOVASCULAR: No murmur. LUNGS: Distant and clear. ABDOMEN: Bowel sound positive. Slightly tender. No guarding. No rigidity. No rebound. EXTREMITIES: No cyanosis, clubbing, or edema. NEUROLOGIC: The patient moves all extremities, slightly weak. Microbiology Date/Time Source Procedure Growth Status 11/03/18 15:30 Stool Clostridium difficile Toxin Assay - Final Complete Laboratory Tests Test 11/06/18 06:39 White Blood Count 5.0 K/UL (4.8-10.8) Red Blood Count 4.76 M/UL (4.70-6.10) Hemoglobin 13.2 G/DL (14.2-18.0) L Hematocrit 41.5 % (42.0-52.0) L Mean Corpuscular Volume 87 FL (80-99) Mean Corpuscular Hemoglobin 27.8 PG (27.0-31.0) Mean Corpuscular Hemoglobin Concent 31.9 G/DL (32.0-36.0) L Red Cell Distribution Width 13.6 % (11.6-14.8) Platelet Count 124 K/UL (150-450) L Mean Platelet Volume 8.4 FL (6.5-10.1) Neutrophils (%) (Auto) 56.7 % (45.0-75.0) Lymphocytes (%) (Auto) 29.8 % (20.0-45.0) Monocytes (%) (Auto) 10.1 % (1.0-10.0) H Eosinophils (%) (Auto) 2.8 % (0.0-3.0) Basophils (%) (Auto) 0.6 % (0.0-2.0) Sodium Level 142 MMOL/L (136-145) Potassium Level 4.0 MMOL/L (3.5-5.1) Chloride Level 109 MMOL/L (98-107) H Carbon Dioxide Level 27 MMOL/L (21-32) Anion Gap 6 mmol/L (5-15) Blood Urea Nitrogen 12 mg/dL (7-18) Creatinine 0.8 MG/DL (0.55-1.30) Estimat Glomerular Filtration Rate > 60 mL/min (>60) Glucose Level 96 MG/DL (74-106) Calcium Level 8.6 MG/DL (8.5-10.1) Current Medications Medications (Trade) Dose Ordered Sig/Hugo Route PRN Reason Start Time Stop Time Status Last Admin Dose Admin Al Hydroxide/Mg Hydroxide (Mylanta II) 30 ml Q6H PRN ORAL dyspepsia 10/23/18 14:50 11/22/18 14:49 Aripiprazole (Abilify) 5 mg BEDTIME ORAL 10/23/18 21:00 11/22/18 20:59 11/05/18 20:43 Carisoprodol (Soma) 350 mg THREE TIMES A DAY ORAL 10/25/18 18:00 11/22/18 21:59 11/06/18 09:28 Dextrose (Dextrose 50%) 25 ml Q30M PRN IV Hypoglycemia 10/23/18 14:51 11/22/18 14:50 Dextrose (Dextrose 50%) 50 ml Q30M PRN IV Hypoglycemia 10/23/18 14:51 11/22/18 14:50 Diphenhydramine HCl (Benadryl) 25 mg Q6H PRN ORAL Itching/Pruritis 10/23/18 14:50 11/22/18 14:49 10/24/18 06:40 Docusate Sodium (Colace) 100 mg TID ORAL 10/25/18 18:00 11/22/18 20:59 11/06/18 09:28 Famotidine (Pepcid) 20 mg Q12HR ORAL 10/28/18 09:00 11/27/18 08:59 11/06/18 09:26 Gabapentin (Neurontin) 600 mg THREE TIMES A DAY ORAL 10/23/18 18:00 11/22/18 17:59 11/06/18 09:28 Loperamide HCl (Imodium) 2 mg Q4H PRN ORAL Diarrhea 11/02/18 15:15 12/02/18 15:14 11/04/18 09:43 Lorazepam (Ativan 2mg/ml 1ml) 0.5 mg Q4H PRN IV For Anxiety 10/30/18 14:30 11/06/18 14:29 11/02/18 22:05 Magnesium Hydroxide (Mom) 30 ml HSPRN PRN ORAL Constipation 10/23/18 21:00 11/22/18 20:59 Metoprolol Tartrate (Lopressor) 25 mg EVERY 12 HOURS ORAL 10/23/18 21:00 11/22/18 20:59 11/05/18 20:43 Ondansetron HCl (Zofran) 4 mg Q6H PRN IVP Nausea & Vomiting 10/23/18 14:50 11/22/18 14:49 Oxycodone HCl (Roxicodone) 30 mg Q8H PRN ORAL Mod-severe pain 4-10 10/31/18 19:45 11/07/18 19:44 11/06/18 04:48 Sertraline HCl (Zoloft) 50 mg DAILY ORAL 10/24/18 09:00 11/23/18 08:59 11/06/18 09:26 Tamsulosin HCl (Flomax) 0.4 mg BID ORAL 10/23/18 18:00 11/22/18 17:59 11/06/18 09:28 Trazodone HCl (Desyrel) 50 mg BEDTIME ORAL 10/23/18 21:00 11/22/18 20:59 11/05/18 20:44 Nesha Park M.D. Nov 06, 2018 10:10
[2018-11-06 12:00] VITALS: BP 110/53
--- NOTE | 2018-11-06 15:16 | General Surgery Progress Note ---
General Surgery-Progress Note Subjective Additional Comments no acute events. doing well. comfortable. Objective Last 24 Hour Vital Signs Date Time Temp Pulse Resp B/P (MAP) Pulse Ox O2 Delivery O2 Flow Rate FiO2 11/06/18 14:22 98.5 11/06/18 12:00 98.5 65 18 110/53 (72) 94 11/06/18 09:00 Room Air 11/06/18 09:00 62 107/49 11/06/18 08:00 98.3 66 18 109/56 (73) 94 11/06/18 04:00 97.3 62 18 107/49 (68) 93 11/06/18 00:00 97.5 72 18 132/62 (85) 94 11/05/18 21:00 Room Air 11/05/18 20:43 74 119/52 11/05/18 20:00 97.4 74 19 119/52 (74) 94 11/05/18 16:00 96.8 77 20 117/56 (76) 95 I&O Intake and Output 11/05/18 11/06/18 19:00 07:00 Intake Total 720 ml Output Total 500 ml 400 ml Balance 220 ml -400 ml Intake Oral 720 ml Output Urine Total 500 ml 400 ml Cardiovascular: RSR Respiratory: clear Abdomen: soft, flat, non-tender, present bowel sounds Extremities: no tenderness, no cyanosis Laboratory Tests Test 11/06/18 06:39 White Blood Count 5.0 K/UL (4.8-10.8) Red Blood Count 4.76 M/UL (4.70-6.10) Hemoglobin 13.2 G/DL (14.2-18.0) L Hematocrit 41.5 % (42.0-52.0) L Mean Corpuscular Volume 87 FL (80-99) Mean Corpuscular Hemoglobin 27.8 PG (27.0-31.0) Mean Corpuscular Hemoglobin Concent 31.9 G/DL (32.0-36.0) L Red Cell Distribution Width 13.6 % (11.6-14.8) Platelet Count 124 K/UL (150-450) L Mean Platelet Volume 8.4 FL (6.5-10.1) Neutrophils (%) (Auto) 56.7 % (45.0-75.0) Lymphocytes (%) (Auto) 29.8 % (20.0-45.0) Monocytes (%) (Auto) 10.1 % (1.0-10.0) H Eosinophils (%) (Auto) 2.8 % (0.0-3.0) Basophils (%) (Auto) 0.6 % (0.0-2.0) Sodium Level 142 MMOL/L (136-145) Potassium Level 4.0 MMOL/L (3.5-5.1) Chloride Level 109 MMOL/L (98-107) H Carbon Dioxide Level 27 MMOL/L (21-32) Anion Gap 6 mmol/L (5-15) Blood Urea Nitrogen 12 mg/dL (7-18) Creatinine 0.8 MG/DL (0.55-1.30) Estimat Glomerular Filtration Rate > 60 mL/min (>60) Glucose Level 96 MG/DL (74-106) Calcium Level 8.6 MG/DL (8.5-10.1) Plan Problems: (1) Intractable abdominal pain Assessment & Plan: improving US noted CT noted pain resolved wounds on legs improved -okay for diet -no surgical intervention planned -okay to d/c from surgical standpoint thank you will follow with Rashid Bond Nov 06, 2018 15:16
--- NOTE | 2018-11-06 15:56 | General Progress Note ---
Assessment/Plan Status: stable Assessment/Plan # Thrombocytopenia due to underlying hep C, stable approx 100k --> Cont to monitor and tend plt count for stability/improvement --> Oupatient tx for hep c. --> Hep panel in past showed hep c. HIV negative --> US abd does not show cirrhosis or hsm --> Peripheral smear ordered to evaluate for blasts /schistocytes and none noted --> abx and other meds have been reviewed --> ok for ppx if plt >50k w/ wither heparin or lovenox --> Trend 109k--> 102k--> 77k-->68k-->80k-->101k-->117k # Leukopenia - due to underlying hep C --> Improved/Resolved --> US abd does not show cirrhosis or hsm --> o/p eradication as per gi # GI bleed with blood stool --> h/h stable, therefore outpatient eval # Abdominal pain --> Pain has improved --> with blood emesis, outpatient w/u --> surgery was consulted, no surgery intervention planned. # History of CVA (cerebrovascular accident) # Gallstones GREATLY APPRECIATE CONSULTATION. Subjective Date patient seen: Nov 06, 2018 Hematologic/Lymphatic: Reports: anemia Allergies: Coded Allergies: ACETAMINOPHEN (Verified Allergy, Unknown, 08/28/18) ASPIRIN (Verified Allergy, Unknown, 08/28/18) KETOROLAC (Verified Allergy, Unknown, 08/28/18) NSAIDS (NON-STEROIDAL ANTI-INFLAMMA (Verified Allergy, Unknown, 09/09/18) All Systems: reviewed and negative except above Subjective Pt awake and alert. No acute events. VS stable. Objective Last 24 Hour Vital Signs Date Time Temp Pulse Resp B/P (MAP) Pulse Ox O2 Delivery O2 Flow Rate FiO2 11/06/18 14:22 98.5 11/06/18 12:00 98.5 65 18 110/53 (72) 94 11/06/18 09:00 Room Air 11/06/18 09:00 62 107/49 11/06/18 08:00 98.3 66 18 109/56 (73) 94 11/06/18 04:00 97.3 62 18 107/49 (68) 93 11/06/18 00:00 97.5 72 18 132/62 (85) 94 11/05/18 21:00 Room Air 11/05/18 20:43 74 119/52 11/05/18 20:00 97.4 74 19 119/52 (74) 94 11/05/18 16:00 96.8 77 20 117/56 (76) 95 Intake and Output 11/05/18 11/06/18 19:00 07:00 Intake Total 720 ml Output Total 500 ml 400 ml Balance 220 ml -400 ml Intake Oral 720 ml Output Urine Total 500 ml 400 ml Laboratory Tests 11/06/18 06:39: White Blood Count 5.0, Red Blood Count 4.76, Hemoglobin 13.2L, Hematocrit 41.5L , Mean Corpuscular Volume 87, Mean Corpuscular Hemoglobin 27.8, Mean Corpuscular Hemoglobin Concent 31.9L, Red Cell Distribution Width 13.6, Platelet Count 124L, Mean Platelet Volume 8.4, Neutrophils (%) (Auto) 56.7, Lymphocytes (%) (Auto) 29.8, Monocytes (%) (Auto) 10.1H, Eosinophils (%) (Auto) 2.8, Basophils (%) (Auto) 0.6, Sodium Level 142, Potassium Level 4.0, Chloride Level 109H, Carbon Dioxide Level 27, Anion Gap 6, Blood Urea Nitrogen 12, Creatinine 0.8, Estimat Glomerular Filtration Rate > 60, Glucose Level 96, Calcium Level 8.6 Height (Feet): 6 Height (Inches): 4.00 Weight (Pounds): 288 Objective General Appearance: normal inspection, well appearing, no apparent distress Head: atraumatic ENT: normal ENT inspection, hearing grossly normal, normal voice Neck: normal inspection, full range of motion, supple, no bony tend Respiratory: normal inspection, lungs clear, normal breath sounds, no respiratory distress, no retraction, no wheezing Cardiovascular #1: regular rate, rhythm, no edema Gastrointestinal: normal inspection, normal bowel sounds, non tender, soft, no guarding, no hernia Genitourinary: no CVA tenderness Musculoskeletal: normal inspection, back normal, normal range of motion Neurologic: normal inspection, alert, responsive, speech normal Psychiatric: normal inspection, judgement/insight normal, mood/affect normal Skin: normal inspection, normal color, no rash Bebo Agustin MD Nov 06, 2018 15:56
[2018-11-06 16:00] VITALS: BP 124/51
[2018-11-06 19:55] VITALS: BP 120/53
[2018-11-06] MEDS: TraZODone 50mg tab ORAL SCH (20:19)
--- NOTE | 2018-11-06 23:00 | Progress Note ---
DATE: 11/06/2018 SUBJECTIVE: This is a 52-year-old male patient with GI bleeding and flank pain. The patient still has some mood lability, worsened by stress of his medical illness. That is why, his attending physician has requested daily psychiatric consultation. MENTAL STATUS EXAMINATION: This is a 52-year-old male. Appearance is disheveled. Attitude, irritable and agitated. Affect, guarded and restricted. Intellect poor. Mood depressed and anxious. Motor activity, psychomotor agitation. Attention span is poor. Orientation x2. Speech is low volume and slurred. Thought process, disorganized and illogical. Thought content, some auditory hallucinations with paranoia and highly anxious. Insight and judgment is poor. DIAGNOSIS: Major depression with psychotic features, rule out paranoid schizophrenia. PLAN: Treat him with Zoloft 50 mg p.o. daily, Abilify at a dose of 5 mg p.o. nightly, trazodone 50 mg nightly, and Neurontin 600 mg three times a day. Provided him with 20 minutes of cognitive behavioral therapy to help him identify his automatic negative thoughts and to help him convert those negative thoughts to more positive thinking to reduce depression, anxiety, and suicidality. In addition, to help him have a more adaptive behavioral pattern. Chart reviewed and discussed with staff. Seen and assessed in his room. 20 minutes of cognitive behavioral therapy provided. Amy Benites M.D. DR: LINDA JOB#: [id number] CC:
[2018-11-07] VITALS: BP 122/56
[2018-11-07 04:00] VITALS: BP 115/61
[2018-11-07 08:00] VITALS: BP 118/60
--- NOTE | 2018-11-07 08:01 | General Progress Note ---
Assessment/Plan Problem List: (1) UTI (urinary tract infection) ICD Codes: N39.0 - Urinary tract infection, site not specified SNOMED: 41949573 (2) Depressed ICD Codes: F32.9 - Major depressive disorder, single episode, unspecified SNOMED: 67645056 (3) Cirrhosis ICD Codes: K74.60 - Unspecified cirrhosis of liver SNOMED: 98417744 (4) Thrombocytopenia ICD Codes: D69.6 - Thrombocytopenia, unspecified SNOMED: 336762800 (5) Intractable abdominal pain ICD Codes: R10.9 - Unspecified abdominal pain SNOMED: 61907313, 047789563 (6) Lower GI bleed ICD Codes: K92.2 - Gastrointestinal hemorrhage, unspecified SNOMED: 77168119 (7) Psychosis ICD Codes: F29 - Unspecified psychosis not due to a substance or known physiological condition SNOMED: 52050470 (8) History of CVA (cerebrovascular accident) ICD Codes: Z86.73 - Personal history of transient ischemic attack (TIA), and cerebral infarction without residual deficits SNOMED: 156544099 Status: stable, progressing Assessment/Plan ot pt diet abx per id gi/heme f/u cbc bmp am dc if clear Subjective Constitutional: Reports: weakness Allergies: Coded Allergies: ACETAMINOPHEN (Verified Allergy, Unknown, 08/28/18) ASPIRIN (Verified Allergy, Unknown, 08/28/18) KETOROLAC (Verified Allergy, Unknown, 08/28/18) NSAIDS (NON-STEROIDAL ANTI-INFLAMMA (Verified Allergy, Unknown, 09/09/18) All Systems: reviewed and negative except above Subjective sleepy in bed Objective Last 24 Hour Vital Signs Date Time Temp Pulse Resp B/P (MAP) Pulse Ox O2 Delivery O2 Flow Rate FiO2 11/07/18 04:00 97.2 60 18 115/61 (79) 96 11/07/18 00:00 98.1 71 18 122/56 (78) 95 11/06/18 21:00 Room Air 11/06/18 20:20 69 120/53 11/06/18 19:55 97.9 69 20 120/53 (75) 94 11/06/18 17:48 98.5 11/06/18 16:00 97.1 70 18 124/51 (75) 93 11/06/18 12:00 98.5 65 18 110/53 (72) 94 11/06/18 09:00 Room Air 11/06/18 09:00 62 107/49 Intake and Output 11/06/18 11/07/18 18:59 06:59 Intake Total 720 ml Balance 720 ml Intake Oral 720 ml # Voids 4 4 # Bowel Movements 1 Laboratory Tests 11/07/18 07:27: Sodium Level [Pending], Potassium Level [Pending], Chloride Level [Pending], Carbon Dioxide Level [Pending], Blood Urea Nitrogen [Pending], Creatinine [ Pending], Estimat Glomerular Filtration Rate [Pending], Glucose Level [Pending] , Calcium Level [Pending], Total Bilirubin [Pending], Aspartate Amino Transf ( AST/SGOT) [Pending], Alanine Aminotransferase (ALT/SGPT) [Pending], Alkaline Phosphatase [Pending], Total Protein [Pending], Albumin [Pending], Globulin [ Pending] Height (Feet): 6 Height (Inches): 4.00 Weight (Pounds): 288 General Appearance: lethargic EENT: normal ENT inspection Neck: normal alignment Cardiovascular: normal peripheral pulses, normal rate, regular rhythm Respiratory/Chest: chest wall non-tender, lungs clear, normal breath sounds Abdomen: normal bowel sounds, non tender, soft Extremities: normal inspection Edema: no edema noted Arm (L), no edema noted Arm (R), no edema noted Leg (L), no edema noted Leg (R), no edema noted Pedal (L), no edema noted Pedal (R), no edema noted Generalized Neurologic: motor weakness Skin: normal pigmentation, warm/dry Roberto Georges DO Nov 07, 2018 08:01
--- NOTE | 2018-11-07 08:11 | General Progress Note ---
Assessment/Plan Assessment/Plan colonoscopy cancelled, patient unable to tolerate prep given no anemia and no recurrent bleed, will follow up as an outpatient KUB for abdominal distention >> unremarkable titrate bowel regime prn transfusion possible history of Hep C cirrhosis, fu labs pain mgmt zofran prn Imodium as needed fu labs outpatient GI procedures Subjective ROS Limited/Unobtainable: Yes Allergies: Coded Allergies: ACETAMINOPHEN (Verified Allergy, Unknown, 08/28/18) ASPIRIN (Verified Allergy, Unknown, 08/28/18) KETOROLAC (Verified Allergy, Unknown, 08/28/18) NSAIDS (NON-STEROIDAL ANTI-INFLAMMA (Verified Allergy, Unknown, 09/09/18) Objective Last 24 Hour Vital Signs Date Time Temp Pulse Resp B/P (MAP) Pulse Ox O2 Delivery O2 Flow Rate FiO2 11/07/18 04:00 97.2 60 18 115/61 (79) 96 11/07/18 00:00 98.1 71 18 122/56 (78) 95 11/06/18 21:00 Room Air 11/06/18 20:20 69 120/53 11/06/18 19:55 97.9 69 20 120/53 (75) 94 11/06/18 17:48 98.5 11/06/18 16:00 97.1 70 18 124/51 (75) 93 11/06/18 12:00 98.5 65 18 110/53 (72) 94 11/06/18 09:00 Room Air 11/06/18 09:00 62 107/49 Intake and Output 11/06/18 11/07/18 18:59 06:59 Intake Total 720 ml Balance 720 ml Intake Oral 720 ml # Voids 4 4 # Bowel Movements 1 Laboratory Tests 11/07/18 07:27: Sodium Level [Pending], Potassium Level [Pending], Chloride Level [Pending], Carbon Dioxide Level [Pending], Blood Urea Nitrogen [Pending], Creatinine [ Pending], Estimat Glomerular Filtration Rate [Pending], Glucose Level [Pending] , Calcium Level [Pending], Total Bilirubin [Pending], Aspartate Amino Transf ( AST/SGOT) [Pending], Alanine Aminotransferase (ALT/SGPT) [Pending], Alkaline Phosphatase [Pending], Total Protein [Pending], Albumin [Pending], Globulin [ Pending] Height (Feet): 6 Height (Inches): 4.00 Weight (Pounds): 288 General Appearance: no apparent distress EENT: normal ENT inspection Neck: supple Cardiovascular: normal rate Respiratory/Chest: decreased breath sounds Abdomen: normal bowel sounds, non tender, soft Extremities: non-tender Arthur Ramos MD Nov 07, 2018 08:11
[2018-11-07 08:15] LABS: ALANINE AMINOTRANSFERASE 97 U/L (12-78); ALBUMIN 2.8 G/DL (3.4-5.0); ALBUMIN/GLOBULIN RATIO 0.5 (1.0-2.7); ALKALINE PHOSPHATASE 92 U/L (46-116); ANION GAP 8 mmol/L (5-15); ASPARTATE AMINO TRANSFERASE 80 U/L (15-37); BILIRUBIN,TOTAL 0.4 MG/DL (0.2-1.0); BLOOD UREA NITROGEN 14 mg/dL (7-18); CALCIUM 8.7 MG/DL (8.5-10.1); CARBON DIOXIDE 25 MMOL/L (21-32); CHLORIDE 109 MMOL/L (98-107); CREATININE 0.9 MG/DL (0.55-1.30); POTASSIUM 4.1 MMOL/L (3.5-5.1); SODIUM 142 MMOL/L (136-145)
[2018-11-07] MEDS: Metoprolol 25mg tab ORAL SCH ×2 (09:00→20:29)
[2018-11-07] MEDS: Sertraline 50mg tab ORAL SCH (09:20)
[2018-11-07] MEDS: Docusate 100mg cap ORAL SCH ×3 (09:20→17:28)
[2018-11-07] MEDS: Tamsulosin 0.4mg cap ORAL SCH ×2 (09:20→17:28)
[2018-11-07] MEDS: oxyCODONE 15mg IR tab ORAL PRN ×2 (09:21→17:29)
[2018-11-07 12:00] VITALS: BP 115/62
--- NOTE | 2018-11-07 13:55 | General Surgery Progress Note ---
General Surgery-Progress Note Subjective Symptoms: improved, pain absent, tolerating diet, passing flatus, BM Additional Comments states he is comfortable. no complaints Objective Last 24 Hour Vital Signs Date Time Temp Pulse Resp B/P (MAP) Pulse Ox O2 Delivery O2 Flow Rate FiO2 11/07/18 12:00 97.8 66 18 115/62 (79) 94 11/07/18 09:00 Room Air 11/07/18 09:00 66 118/60 11/07/18 08:00 97.9 66 18 118/60 (79) 98 11/07/18 04:00 97.2 60 18 115/61 (79) 96 11/07/18 00:00 98.1 71 18 122/56 (78) 95 11/06/18 21:00 Room Air 11/06/18 20:20 69 120/53 11/06/18 19:55 97.9 69 20 120/53 (75) 94 11/06/18 17:48 98.5 11/06/18 16:00 97.1 70 18 124/51 (75) 93 I&O Intake and Output 11/06/18 11/07/18 19:00 07:00 Intake Total 720 ml Balance 720 ml Intake Oral 720 ml # Voids 4 4 # Bowel Movements 1 Drains: none Cardiovascular: RSR Respiratory: clear Abdomen: soft, flat, non-tender, present bowel sounds Extremities: no cyanosis Laboratory Tests Test 11/07/18 07:27 Sodium Level 142 MMOL/L (136-145) Potassium Level 4.1 MMOL/L (3.5-5.1) Chloride Level 109 MMOL/L (98-107) H Carbon Dioxide Level 25 MMOL/L (21-32) Anion Gap 8 mmol/L (5-15) Blood Urea Nitrogen 14 mg/dL (7-18) Creatinine 0.9 MG/DL (0.55-1.30) Estimat Glomerular Filtration Rate > 60 mL/min (>60) Glucose Level 139 MG/DL (74-106) H Calcium Level 8.7 MG/DL (8.5-10.1) Total Bilirubin 0.4 MG/DL (0.2-1.0) Aspartate Amino Transf (AST/SGOT) 80 U/L (15-37) H Alanine Aminotransferase (ALT/SGPT) 97 U/L (12-78) H Alkaline Phosphatase 92 U/L (46-116) Total Protein 8.1 G/DL (6.4-8.2) Albumin 2.8 G/DL (3.4-5.0) L Globulin 5.3 g/dL Albumin/Globulin Ratio 0.5 (1.0-2.7) L Plan Problems: (1) Intractable abdominal pain Assessment & Plan: improving US noted CT noted pain resolved wounds on legs improved -okay for diet -no surgical intervention planned -okay to d/c from surgical standpoint thank you will follow with Rashid Bond Nov 07, 2018 13:55
[2018-11-07 16:00] VITALS: BP 112/50
--- NOTE | 2018-11-07 17:00 | Consultation ---
DATE OF CONSULTATION: SUBJECTIVE: This is a 52-year-old male patient with flank pain but he has increased mood lability, confusion worsened by stress of his medical illness. MENTAL STATUS EXAMINATION: The patient is a 52-year-old male. Appearance is disheveled. Attitude, irritable and agitated. Affect guarded and restricted. Intellect poor. Mood depressed and anxious. Motor activity, psychomotor agitation. Attention span is poor. Orientation x2. Speech is pressured. Thought process, disorganized and illogical. Insight and judgement is poor DIAGNOSIS: Paranoid schizophrenia with acute exacerbation. PLAN: Treat him with Zoloft at a elder of 50 mg p.o. daily, Abilify 5 mg nightly, trazodone 50 mg nightly, and Neurontin 600 mg three times a day. Provided him with 20 minutes of supportive psychotherapy. A 20 minutes of cognitive behavioral therapy to help him identify his automatic negative thoughts and to help him convert those negative thoughts to more positive thinking to reduce depression, anxiety, and suicidality. Chart reviewed and discussed with staff. Seen and assessed in his room. Amy Benites M.D. DR: Betty JOB#: [id number] CC:
[2018-11-07 20:00] VITALS: BP 121/54
[2018-11-07] MEDS: TraZODone 50mg tab ORAL SCH (20:29)
--- NOTE | 2018-11-07 20:42 | General Progress Note ---
Assessment/Plan Assessment/Plan Covering for Dr. Spears # Thrombocytopenia due to underlying hep C, stable approx 100k --> Cont to monitor and tend plt count for stability/improvement --> Oupatient tx for hep c. --> Hep panel in past showed hep c. HIV negative --> US abd does not show cirrhosis or hsm --> Peripheral smear ordered to evaluate for blasts /schistocytes and none noted --> abx and other meds have been reviewed --> ok for ppx if plt >50k w/ wither heparin or lovenox --> Trend 109k--> 102k--> 77k-->68k-->80k-->101k-->117k-->124k # Leukopenia - due to underlying hep C --> Improved/Resolved --> US abd does not show cirrhosis or hsm --> o/p eradication as per gi # GI bleed with blood stool --> h/h stable, therefore outpatient eval # Abdominal pain --> Pain has improved --> with blood emesis, outpatient w/u --> surgery was consulted, no surgery intervention planned. # History of CVA (cerebrovascular accident) # Gallstones GREATLY APPRECIATE CONSULTATION. Subjective Constitutional: Denies: no symptoms, chills, diaphoresis, fever, malaise, weakness, other HEENT: Denies: no symptoms, eye pain, blurred vision, tearing, double vision, ear pain, ear discharge, nose pain, nose congestion, throat pain, throat swelling, mouth pain, mouth swelling, other Cardiovascular: Denies: no symptoms, chest pain, edema, irregular heart rate, lightheadedness, palpitations, syncope, other Respiratory: Denies: no symptoms, cough, orthopnea, shortness of breath, SOB with excertion, SOB at rest, sputum, stridor, wheezing, other Gastrointestinal/Abdominal: Denies: no symptoms, abdomen distended, abdominal pain, black stools, tarry stools, blood in stool, constipated, diarrhea, difficulty swallowing, nausea, poor appetite, poor fluid intake, rectal bleeding , vomiting, other Genitourinary: Denies: no symptoms, burning, discharge, frequency, flank pain, hematuria, incontinence, pain, urgency, other Neurologic/Psychiatric: Denies: no symptoms, anxiety, depressed, emotional problems, headache, numbness, paresthesia, pre-existing deficit, seizure, tingling, tremors, weakness, other Endocrine: Denies: no symptoms, excessive sweating, flushing, intolerance to cold, intolerance to heat, increased hunger, increased thirst, increased urine, unexplained weight gain, unexplained weight loss, other Hematologic/Lymphatic: Denies: no symptoms, anemia, easy bleeding, easy bruising, other Allergies: Coded Allergies: ACETAMINOPHEN (Verified Allergy, Unknown, 08/28/18) ASPIRIN (Verified Allergy, Unknown, 08/28/18) KETOROLAC (Verified Allergy, Unknown, 08/28/18) NSAIDS (NON-STEROIDAL ANTI-INFLAMMA (Verified Allergy, Unknown, 09/09/18) Subjective Pt awake and alert. No acute events. VS better Objective Last 24 Hour Vital Signs Date Time Temp Pulse Resp B/P (MAP) Pulse Ox O2 Delivery O2 Flow Rate FiO2 11/07/18 20:29 70 121/54 11/07/18 20:00 97.8 70 18 121/54 (76) 94 11/07/18 17:59 97.8 11/07/18 16:00 97.6 68 19 112/50 (70) 96 11/07/18 12:00 97.8 66 18 115/62 (79) 94 11/07/18 09:00 Room Air 11/07/18 09:00 66 118/60 11/07/18 08:00 97.9 66 18 118/60 (79) 98 11/07/18 04:00 97.2 60 18 115/61 (79) 96 11/07/18 00:00 98.1 71 18 122/56 (78) 95 11/06/18 21:00 Room Air Intake and Output 11/06/18 11/07/18 19:00 07:00 Intake Total 720 ml Balance 720 ml Intake Oral 720 ml # Voids 4 4 # Bowel Movements 1 Laboratory Tests 11/07/18 07:27: Sodium Level 142, Potassium Level 4.1, Chloride Level 109H, Carbon Dioxide Level 25, Anion Gap 8, Blood Urea Nitrogen 14, Creatinine 0.9, Estimat Glomerular Filtration Rate > 60, Glucose Level 139H, Calcium Level 8.7, Total Bilirubin 0.4, Aspartate Amino Transf (AST/SGOT) 80H, Alanine Aminotransferase ( ALT/SGPT) 97H, Alkaline Phosphatase 92, Total Protein 8.1, Albumin 2.8L, Globulin 5.3, Albumin/Globulin Ratio 0.5L Height (Feet): 6 Height (Inches): 4.00 Weight (Pounds): 288 Objective General Appearance: normal inspection, well appearing, no apparent distress Head: atraumatic ENT: normal ENT inspection, hearing grossly normal, normal voice Neck: normal inspection, full range of motion, supple, no bony tend Respiratory: normal inspection, lungs clear, normal breath sounds, no respiratory distress, no retraction, no wheezing Cardiovascular #1: regular rate, rhythm, no edema Gastrointestinal: normal inspection, normal bowel sounds, non tender, soft, no guarding, no hernia Genitourinary: no CVA tenderness Musculoskeletal: normal inspection, back normal, normal range of motion Neurologic: normal inspection, alert, responsive, speech normal Psychiatric: normal inspection, judgement/insight normal, mood/affect normal Skin: normal inspection, normal color, no rash Bebo Agustin MD Nov 07, 2018 20:42
[2018-11-08] VITALS: BP 120/59
[2018-11-08] MEDS: oxyCODONE 15mg IR tab ORAL PRN ×3 (03:19→21:12)
[2018-11-08 04:00] VITALS: BP 114/56
[2018-11-08 07:13] LABS: EOSINOPHILS % (AUTO) 2.8 % (0.0-3.0); HEMATOCRIT 41.8 % (42.0-52.0); HEMOGLOBIN 13.4 G/DL (14.2-18.0); LYMPHOCYTES % (AUTO) 28.7 % (20.0-45.0); MEAN CORPUSCULAR VOLUME 87 FL (80-99); MONOCYTES % (AUTO) 9.4 % (1.0-10.0); NEUTROPHILS % (AUTO) 58.1 % (45.0-75.0); PLATELET COUNT 112 K/UL (150-450); RED BLOOD COUNT 4.82 M/UL (4.70-6.10); RED CELL DISTRIBUTION WIDTH 13.9 % (11.6-14.8); WHITE BLOOD COUNT 4.4 K/UL (4.8-10.8)
[2018-11-08 07:19] LABS: ANION GAP 8 mmol/L (5-15); BLOOD UREA NITROGEN 14 mg/dL (7-18); CALCIUM 8.6 MG/DL (8.5-10.1); CARBON DIOXIDE 25 MMOL/L (21-32); CHLORIDE 108 MMOL/L (98-107); CREATININE 0.9 MG/DL (0.55-1.30); POTASSIUM 4.2 MMOL/L (3.5-5.1); SODIUM 141 MMOL/L (136-145)
[2018-11-08 08:00] VITALS: BP 112/53
--- NOTE | 2018-11-08 08:15 | Progress Note ---
DATE: 11/08/2018 SUBJECTIVE: The patient is a 52-year-old male patient with flank pain and GI bleed. He has got mood debility, confusion, altered mental status, worsened by stress from his medical illness. That is why, his attending has requested daily psychiatric consultation. MENTAL STATUS EXAMINATION: This is a 52-year-old male. Appearance is disheveled. Attitude, irritable and agitated. Affect, guarded and restricted. Intellect poor. Mood depressed and anxious. Motor activity, psychomotor agitation. Attention span is poor. Orientation x2. Speech is pressured. Thought process, disorganized and illogical. Thought content, auditory hallucinations and paranoid delusions. Insight and judgment is poor. DIAGNOSIS: Schizoaffective, bipolar type. PLAN: Treat him with Abilify 5 mg daily, trazodone 50 at bedtime, Neurontin 600 mg three times a day, and Zoloft 50 mg daily. Provided him with 20 minutes of supportive psychotherapy. Chart reviewed. Discussed with staff. A 20 minutes of cognitive behavioral therapy provided to help him identify his automatic negative thoughts and to help him convert his negative thoughts to more positive thoughts to reduce depression, anxiety, and suicidality. Amy Benites M.D. DR: SEVERINO JOB#: [id number] CC:
--- NOTE | 2018-11-08 08:18 | General Progress Note ---
Assessment/Plan Problem List: (1) UTI (urinary tract infection) ICD Codes: N39.0 - Urinary tract infection, site not specified SNOMED: 03423482 (2) Depressed ICD Codes: F32.9 - Major depressive disorder, single episode, unspecified SNOMED: 34850167 (3) Cirrhosis ICD Codes: K74.60 - Unspecified cirrhosis of liver SNOMED: 65919365 (4) Thrombocytopenia ICD Codes: D69.6 - Thrombocytopenia, unspecified SNOMED: 020814048 (5) Intractable abdominal pain ICD Codes: R10.9 - Unspecified abdominal pain SNOMED: 46707175, 511381163 (6) Lower GI bleed ICD Codes: K92.2 - Gastrointestinal hemorrhage, unspecified SNOMED: 96405065 (7) Psychosis ICD Codes: F29 - Unspecified psychosis not due to a substance or known physiological condition SNOMED: 42232124 (8) History of CVA (cerebrovascular accident) ICD Codes: Z86.73 - Personal history of transient ischemic attack (TIA), and cerebral infarction without residual deficits SNOMED: 311688523 Status: stable, progressing Assessment/Plan ot pt diet abx per id gi/heme f/u cbc bmp am dc if clear Subjective Constitutional: Reports: weakness Allergies: Coded Allergies: ACETAMINOPHEN (Verified Allergy, Unknown, 08/28/18) ASPIRIN (Verified Allergy, Unknown, 08/28/18) KETOROLAC (Verified Allergy, Unknown, 08/28/18) NSAIDS (NON-STEROIDAL ANTI-INFLAMMA (Verified Allergy, Unknown, 09/09/18) All Systems: reviewed and negative except above Subjective sleepy in bed Objective Last 24 Hour Vital Signs Date Time Temp Pulse Resp B/P (MAP) Pulse Ox O2 Delivery O2 Flow Rate FiO2 11/08/18 04:00 97.6 60 18 114/56 (75) 95 11/08/18 00:00 97.8 68 18 120/59 (79) 94 11/07/18 21:00 Room Air 11/07/18 20:29 70 121/54 11/07/18 20:00 97.8 70 18 121/54 (76) 94 11/07/18 17:59 97.8 11/07/18 16:00 97.6 68 19 112/50 (70) 96 11/07/18 12:00 97.8 66 18 115/62 (79) 94 11/07/18 09:00 Room Air 11/07/18 09:00 66 118/60 Intake and Output 11/07/18 11/08/18 19:00 07:00 Intake Total 1220 ml 240 ml Balance 1220 ml 240 ml Intake Oral 1220 ml 240 ml # Voids 8 4 # Bowel Movements 2 Laboratory Tests 11/08/18 05:45: White Blood Count 4.4L, Red Blood Count 4.82, Hemoglobin 13.4L, Hematocrit 41.8L , Mean Corpuscular Volume 87, Mean Corpuscular Hemoglobin 27.9, Mean Corpuscular Hemoglobin Concent 32.2, Red Cell Distribution Width 13.9, Platelet Count 112L, Mean Platelet Volume 7.5, Neutrophils (%) (Auto) 58.1, Lymphocytes ( %) (Auto) 28.7, Monocytes (%) (Auto) 9.4, Eosinophils (%) (Auto) 2.8, Basophils (%) (Auto) 1.0, Sodium Level 141, Potassium Level 4.2, Chloride Level 108H, Carbon Dioxide Level 25, Anion Gap 8, Blood Urea Nitrogen 14, Creatinine 0.9, Estimat Glomerular Filtration Rate > 60, Glucose Level 101, Calcium Level 8.6 Height (Feet): 6 Height (Inches): 4.00 Weight (Pounds): 288 General Appearance: lethargic EENT: PERRL/EOMI Neck: normal alignment Cardiovascular: normal peripheral pulses, normal rate, regular rhythm Respiratory/Chest: chest wall non-tender, lungs clear, normal breath sounds Abdomen: normal bowel sounds, non tender, soft Extremities: normal inspection Edema: no edema noted Arm (L), no edema noted Arm (R), no edema noted Leg (L), no edema noted Leg (R), no edema noted Pedal (L), no edema noted Pedal (R), no edema noted Generalized Neurologic: motor weakness Skin: normal pigmentation, warm/dry Roberto Georges DO Nov 08, 2018 08:18
[2018-11-08] MEDS: Docusate 100mg cap ORAL SCH ×3 (08:30→18:22)
[2018-11-08] MEDS: Sertraline 50mg tab ORAL SCH (08:30)
[2018-11-08] MEDS: Tamsulosin 0.4mg cap ORAL SCH ×2 (08:30→18:22)
[2018-11-08] MEDS: Metoprolol 25mg tab ORAL SCH ×2 (08:51→21:00)
--- NOTE | 2018-11-08 09:25 | General Progress Note ---
Assessment/Plan Assessment/Plan colonoscopy cancelled, patient unable to tolerate prep given no anemia and no recurrent bleed, neg stool ob, will follow up as an outpatient KUB for abdominal distention >> unremarkable titrate bowel regime prn transfusion possible history of Hep C cirrhosis, fu labs pain mgmt zofran prn Imodium as needed fu labs outpatient GI procedures Subjective ROS Limited/Unobtainable: Yes Allergies: Coded Allergies: ACETAMINOPHEN (Verified Allergy, Unknown, 08/28/18) ASPIRIN (Verified Allergy, Unknown, 08/28/18) KETOROLAC (Verified Allergy, Unknown, 08/28/18) NSAIDS (NON-STEROIDAL ANTI-INFLAMMA (Verified Allergy, Unknown, 09/09/18) Objective Last 24 Hour Vital Signs Date Time Temp Pulse Resp B/P (MAP) Pulse Ox O2 Delivery O2 Flow Rate FiO2 11/08/18 08:51 62 112/53 11/08/18 04:00 97.6 60 18 114/56 (75) 95 11/08/18 00:00 97.8 68 18 120/59 (79) 94 11/07/18 21:00 Room Air 11/07/18 20:29 70 121/54 11/07/18 20:00 97.8 70 18 121/54 (76) 94 11/07/18 17:59 97.8 11/07/18 16:00 97.6 68 19 112/50 (70) 96 11/07/18 12:00 97.8 66 18 115/62 (79) 94 Intake and Output 11/07/18 11/08/18 19:00 07:00 Intake Total 1220 ml 240 ml Balance 1220 ml 240 ml Intake Oral 1220 ml 240 ml # Voids 8 4 # Bowel Movements 2 Laboratory Tests 11/08/18 05:45: White Blood Count 4.4L, Red Blood Count 4.82, Hemoglobin 13.4L, Hematocrit 41.8L , Mean Corpuscular Volume 87, Mean Corpuscular Hemoglobin 27.9, Mean Corpuscular Hemoglobin Concent 32.2, Red Cell Distribution Width 13.9, Platelet Count 112L, Mean Platelet Volume 7.5, Neutrophils (%) (Auto) 58.1, Lymphocytes ( %) (Auto) 28.7, Monocytes (%) (Auto) 9.4, Eosinophils (%) (Auto) 2.8, Basophils (%) (Auto) 1.0, Sodium Level 141, Potassium Level 4.2, Chloride Level 108H, Carbon Dioxide Level 25, Anion Gap 8, Blood Urea Nitrogen 14, Creatinine 0.9, Estimat Glomerular Filtration Rate > 60, Glucose Level 101, Calcium Level 8.6 Height (Feet): 6 Height (Inches): 4.00 Weight (Pounds): 288 General Appearance: no apparent distress EENT: normal ENT inspection Neck: supple Cardiovascular: normal rate Respiratory/Chest: decreased breath sounds Abdomen: normal bowel sounds, non tender, soft Extremities: non-tender Arthur Ramos MD Nov 08, 2018 09:24
--- NOTE | 2018-11-08 10:19 | Infectious Diseases Prog Note ---
Assessment/Plan Assessment/Plan Assessment/Plan Low grade fever, SP -CXR: No acute process. Borderline cardiomegaly No leukocytosis GIB RLQ pain- 2ry to hepatitis; improving -Abd US: Cholelithiasis with apparent wall thickening measuring 3 - 4 mm. Negative sonographic Cook sign. -CT abd/p : Liver: Fatty and slightly nodular liver. Correlate for cirrhosis. Gallbladder and bile ducts: Cholelithiasis. Elevated LFTs, improving Chronic Hep C, untreated,p robable cirrhosis -Hep C ab + VL 805K -Hep A not immune, Hep B immune and +Bc ab -HIV ab sc and VL neg 11/03 Cdiff neg psychosis HTN prostate surgery laminectomy GERD cholelithiasis duodenal diverticulum constipation BPH MDD rheumatic fever 1990 CVA 2012 with left sided weakness nephrolithiasis renal stent intermediate resident Plan: -Continue to monitor off abx as clinically stable -f/u cx -Monitor CBC/C MP, temperatures -f/u hep serologies -GI, Sx f/u -Needs Hep C treatment and Hep A immunization as an outpatient. Thank you for this consultation. Will continue to follow along with you. Discussed with RN. Subjective Allergies: Coded Allergies: ACETAMINOPHEN (Verified Allergy, Unknown, 08/28/18) ASPIRIN (Verified Allergy, Unknown, 08/28/18) KETOROLAC (Verified Allergy, Unknown, 08/28/18) NSAIDS (NON-STEROIDAL ANTI-INFLAMMA (Verified Allergy, Unknown, 09/09/18) Subjective afebrile no leukocytosis Objective Vital Signs Last 24 Hour Vital Signs Date Time Temp Pulse Resp B/P (MAP) Pulse Ox O2 Delivery O2 Flow Rate FiO2 11/08/18 09:00 97.6 11/08/18 08:51 62 112/53 11/08/18 04:00 97.6 60 18 114/56 (75) 95 11/08/18 00:00 97.8 68 18 120/59 (79) 94 11/07/18 21:00 Room Air 11/07/18 20:29 70 121/54 11/07/18 20:00 97.8 70 18 121/54 (76) 94 11/07/18 16:00 97.6 68 19 112/50 (70) 96 11/07/18 12:00 97.8 66 18 115/62 (79) 94 Height (Feet): 6 Height (Inches): 4.00 Weight (Pounds): 288 Objective GENERAL: Calm in bed, oriented x2, slight distress secondary to abdominal pain. CARDIOVASCULAR: No murmur. LUNGS: Distant and clear. ABDOMEN: Bowel sound positive. Slightly tender. No guarding. No rigidity. No rebound. EXTREMITIES: No cyanosis, clubbing, or edema. NEUROLOGIC: The patient moves all extremities, slightly weak. Laboratory Tests Test 11/08/18 05:45 White Blood Count 4.4 K/UL (4.8-10.8) L Red Blood Count 4.82 M/UL (4.70-6.10) Hemoglobin 13.4 G/DL (14.2-18.0) L Hematocrit 41.8 % (42.0-52.0) L Mean Corpuscular Volume 87 FL (80-99) Mean Corpuscular Hemoglobin 27.9 PG (27.0-31.0) Mean Corpuscular Hemoglobin Concent 32.2 G/DL (32.0-36.0) Red Cell Distribution Width 13.9 % (11.6-14.8) Platelet Count 112 K/UL (150-450) L Mean Platelet Volume 7.5 FL (6.5-10.1) Neutrophils (%) (Auto) 58.1 % (45.0-75.0) Lymphocytes (%) (Auto) 28.7 % (20.0-45.0) Monocytes (%) (Auto) 9.4 % (1.0-10.0) Eosinophils (%) (Auto) 2.8 % (0.0-3.0) Basophils (%) (Auto) 1.0 % (0.0-2.0) Sodium Level 141 MMOL/L (136-145) Potassium Level 4.2 MMOL/L (3.5-5.1) Chloride Level 108 MMOL/L (98-107) H Carbon Dioxide Level 25 MMOL/L (21-32) Anion Gap 8 mmol/L (5-15) Blood Urea Nitrogen 14 mg/dL (7-18) Creatinine 0.9 MG/DL (0.55-1.30) Estimat Glomerular Filtration Rate > 60 mL/min (>60) Glucose Level 101 MG/DL (74-106) Calcium Level 8.6 MG/DL (8.5-10.1) Current Medications Medications (Trade) Dose Ordered Sig/Hugo Route PRN Reason Start Time Stop Time Status Last Admin Dose Admin Al Hydroxide/Mg Hydroxide (Mylanta II) 30 ml Q6H PRN ORAL dyspepsia 10/23/18 14:50 11/22/18 14:49 Aripiprazole (Abilify) 5 mg BEDTIME ORAL 10/23/18 21:00 11/22/18 20:59 11/07/18 20:29 Carisoprodol (Soma) 350 mg THREE TIMES A DAY ORAL 10/25/18 18:00 11/22/18 21:59 11/08/18 08:30 Dextrose (Dextrose 50%) 25 ml Q30M PRN IV Hypoglycemia 10/23/18 14:51 11/22/18 14:50 Dextrose (Dextrose 50%) 50 ml Q30M PRN IV Hypoglycemia 10/23/18 14:51 11/22/18 14:50 Diphenhydramine HCl (Benadryl) 25 mg Q6H PRN ORAL Itching/Pruritis 10/23/18 14:50 11/22/18 14:49 11/07/18 14:08 Docusate Sodium (Colace) 100 mg TID ORAL 10/25/18 18:00 11/22/18 20:59 11/08/18 08:30 Famotidine (Pepcid) 20 mg Q12HR ORAL 10/28/18 09:00 11/27/18 08:59 11/08/18 08:30 Gabapentin (Neurontin) 600 mg THREE TIMES A DAY ORAL 10/23/18 18:00 11/22/18 17:59 11/08/18 08:30 Loperamide HCl (Imodium) 2 mg Q4H PRN ORAL Diarrhea 11/02/18 15:15 12/02/18 15:14 11/04/18 09:43 Magnesium Hydroxide (Mom) 30 ml HSPRN PRN ORAL Constipation 10/23/18 21:00 11/22/18 20:59 Metoprolol Tartrate (Lopressor) 25 mg EVERY 12 HOURS ORAL 10/23/18 21:00 11/22/18 20:59 11/06/18 20:20 Ondansetron HCl (Zofran) 4 mg Q6H PRN IVP Nausea & Vomiting 10/23/18 14:50 11/22/18 14:49 Oxycodone HCl (Roxicodone) 15 mg Q8H PRN ORAL Pain 4-10 11/07/18 20:00 11/14/18 19:59 11/08/18 03:19 Sertraline HCl (Zoloft) 50 mg DAILY ORAL 10/24/18 09:00 11/23/18 08:59 11/08/18 08:30 Tamsulosin HCl (Flomax) 0.4 mg BID ORAL 10/23/18 18:00 11/22/18 17:59 11/08/18 08:30 Trazodone HCl (Desyrel) 50 mg BEDTIME ORAL 10/23/18 21:00 11/22/18 20:59 11/07/18 20:29 Nesha Park M.D. Nov 08, 2018 10:19
--- NOTE | 2018-11-08 11:38 | General Surgery Progress Note ---
General Surgery-Progress Note Subjective Additional Comments no acute events. states he feels well. no n/v/f/c. tolerating diet. Objective Last 24 Hour Vital Signs Date Time Temp Pulse Resp B/P (MAP) Pulse Ox O2 Delivery O2 Flow Rate FiO2 11/08/18 09:00 Room Air 11/08/18 09:00 97.6 11/08/18 08:51 62 112/53 11/08/18 08:00 97.8 62 19 112/53 (72) 96 11/08/18 04:00 97.6 60 18 114/56 (75) 95 11/08/18 00:00 97.8 68 18 120/59 (79) 94 11/07/18 21:00 Room Air 11/07/18 20:29 70 121/54 11/07/18 20:00 97.8 70 18 121/54 (76) 94 11/07/18 16:00 97.6 68 19 112/50 (70) 96 11/07/18 12:00 97.8 66 18 115/62 (79) 94 I&O Intake and Output 11/07/18 11/08/18 18:59 06:59 Intake Total 1220 ml 240 ml Balance 1220 ml 240 ml Intake Oral 1220 ml 240 ml # Voids 8 4 # Bowel Movements 2 Laboratory Tests Test 11/08/18 05:45 White Blood Count 4.4 K/UL (4.8-10.8) L Red Blood Count 4.82 M/UL (4.70-6.10) Hemoglobin 13.4 G/DL (14.2-18.0) L Hematocrit 41.8 % (42.0-52.0) L Mean Corpuscular Volume 87 FL (80-99) Mean Corpuscular Hemoglobin 27.9 PG (27.0-31.0) Mean Corpuscular Hemoglobin Concent 32.2 G/DL (32.0-36.0) Red Cell Distribution Width 13.9 % (11.6-14.8) Platelet Count 112 K/UL (150-450) L Mean Platelet Volume 7.5 FL (6.5-10.1) Neutrophils (%) (Auto) 58.1 % (45.0-75.0) Lymphocytes (%) (Auto) 28.7 % (20.0-45.0) Monocytes (%) (Auto) 9.4 % (1.0-10.0) Eosinophils (%) (Auto) 2.8 % (0.0-3.0) Basophils (%) (Auto) 1.0 % (0.0-2.0) Sodium Level 141 MMOL/L (136-145) Potassium Level 4.2 MMOL/L (3.5-5.1) Chloride Level 108 MMOL/L (98-107) H Carbon Dioxide Level 25 MMOL/L (21-32) Anion Gap 8 mmol/L (5-15) Blood Urea Nitrogen 14 mg/dL (7-18) Creatinine 0.9 MG/DL (0.55-1.30) Estimat Glomerular Filtration Rate > 60 mL/min (>60) Glucose Level 101 MG/DL (74-106) Calcium Level 8.6 MG/DL (8.5-10.1) Plan Problems: (1) Intractable abdominal pain Assessment & Plan: improving US noted CT noted pain resolved wounds on legs improved -okay for diet -no surgical intervention planned -okay to d/c from surgical standpoint thank you will follow with Rashid Bond Nov 08, 2018 11:38
[2018-11-08 12:00] VITALS: BP 117/56
--- NOTE | 2018-11-08 15:16 | General Progress Note ---
Assessment/Plan Assessment/Plan Covering for Dr. Spears # Thrombocytopenia due to underlying hep C, stable approx 100k --> Cont to monitor and tend plt count for stability/improvement --> Oupatient tx for hep c. --> Hep panel in past showed hep c. HIV negative --> US abd does not show cirrhosis or hsm --> Peripheral smear ordered to evaluate for blasts /schistocytes and none noted --> abx and other meds have been reviewed --> ok for ppx if plt >50k w/ wither heparin or lovenox --> Trend 109k--> 102k--> 77k-->68k-->80k-->101k-->117k-->124k --> outpatiet hepc treatment # Leukopenia - due to underlying hep C --> Improved/Resolved --> US abd does not show cirrhosis or hsm --> o/p eradication as per gi # GI bleed with blood stool --> h/h stable, therefore outpatient eval # Abdominal pain --> Pain has improved --> with blood emesis, outpatient w/u --> surgery was consulted, no surgery intervention planned. # History of CVA (cerebrovascular accident) # Gallstones GREATLY APPRECIATE CONSULTATION. Subjective Constitutional: Denies: no symptoms, chills, diaphoresis, fever, malaise, weakness, other HEENT: Denies: no symptoms, eye pain, blurred vision, tearing, double vision, ear pain, ear discharge, nose pain, nose congestion, throat pain, throat swelling, mouth pain, mouth swelling, other Cardiovascular: Denies: no symptoms, chest pain, edema, irregular heart rate, lightheadedness, palpitations, syncope, other Respiratory: Denies: no symptoms, cough, orthopnea, shortness of breath, SOB with excertion, SOB at rest, sputum, stridor, wheezing, other Gastrointestinal/Abdominal: Denies: no symptoms, abdomen distended, abdominal pain, black stools, tarry stools, blood in stool, constipated, diarrhea, difficulty swallowing, nausea, poor appetite, poor fluid intake, rectal bleeding , vomiting, other Genitourinary: Denies: no symptoms, burning, discharge, frequency, flank pain, hematuria, incontinence, pain, urgency, other Neurologic/Psychiatric: Denies: no symptoms, anxiety, depressed, emotional problems, headache, numbness, paresthesia, pre-existing deficit, seizure, tingling, tremors, weakness, other Endocrine: Denies: no symptoms, excessive sweating, flushing, intolerance to cold, intolerance to heat, increased hunger, increased thirst, increased urine, unexplained weight gain, unexplained weight loss, other Allergies: Coded Allergies: ACETAMINOPHEN (Verified Allergy, Unknown, 08/28/18) ASPIRIN (Verified Allergy, Unknown, 08/28/18) KETOROLAC (Verified Allergy, Unknown, 08/28/18) NSAIDS (NON-STEROIDAL ANTI-INFLAMMA (Verified Allergy, Unknown, 09/09/18) Subjective Pt awake and alert. No acute events. VS better 11/08: no events, tolerating treatment well, tolerating diet Objective Last 24 Hour Vital Signs Date Time Temp Pulse Resp B/P (MAP) Pulse Ox O2 Delivery O2 Flow Rate FiO2 11/08/18 12:33 97.6 11/08/18 12:00 98.0 67 20 117/56 (76) 97 11/08/18 09:00 Room Air 11/08/18 08:51 62 112/53 11/08/18 08:00 97.8 62 19 112/53 (72) 96 11/08/18 04:00 97.6 60 18 114/56 (75) 95 11/08/18 00:00 97.8 68 18 120/59 (79) 94 11/07/18 21:00 Room Air 11/07/18 20:29 70 121/54 11/07/18 20:00 97.8 70 18 121/54 (76) 94 11/07/18 16:00 97.6 68 19 112/50 (70) 96 Intake and Output 11/07/18 11/08/18 18:59 06:59 Intake Total 1220 ml 240 ml Balance 1220 ml 240 ml Intake Oral 1220 ml 240 ml # Voids 8 4 # Bowel Movements 2 Laboratory Tests 11/08/18 05:45: White Blood Count 4.4L, Red Blood Count 4.82, Hemoglobin 13.4L, Hematocrit 41.8L , Mean Corpuscular Volume 87, Mean Corpuscular Hemoglobin 27.9, Mean Corpuscular Hemoglobin Concent 32.2, Red Cell Distribution Width 13.9, Platelet Count 112L, Mean Platelet Volume 7.5, Neutrophils (%) (Auto) 58.1, Lymphocytes ( %) (Auto) 28.7, Monocytes (%) (Auto) 9.4, Eosinophils (%) (Auto) 2.8, Basophils (%) (Auto) 1.0, Sodium Level 141, Potassium Level 4.2, Chloride Level 108H, Carbon Dioxide Level 25, Anion Gap 8, Blood Urea Nitrogen 14, Creatinine 0.9, Estimat Glomerular Filtration Rate > 60, Glucose Level 101, Calcium Level 8.6 Height (Feet): 6 Height (Inches): 4.00 Weight (Pounds): 288 Objective General Appearance: normal inspection, well appearing, no apparent distress Head: atraumatic ENT: normal ENT inspection, hearing grossly normal, normal voice Neck: normal inspection, full range of motion, supple, no bony tend Respiratory: normal inspection, lungs clear, normal breath sounds, no respiratory distress, no retraction, no wheezing Cardiovascular #1: regular rate, rhythm, no edema Gastrointestinal: normal inspection, normal bowel sounds, non tender, soft, no guarding, no hernia Genitourinary: no CVA tenderness Musculoskeletal: normal inspection, back normal, normal range of motion Neurologic: normal inspection, alert, responsive, speech normal Psychiatric: normal inspection, judgement/insight normal, mood/affect normal Skin: normal inspection, normal color, no rash Bebo Agustin MD Nov 08, 2018 15:16
[2018-11-08 16:00] VITALS: BP 103/53
[2018-11-08 20:00] VITALS: BP 119/58
[2018-11-08] MEDS: TraZODone 50mg tab ORAL SCH (21:11)
[2018-11-09] VITALS: BP 121/60
[2018-11-09 04:00] VITALS: BP 111/56
[2018-11-09 07:11] LABS: BASOPHILS % (AUTO) 0.8 % (0.0-2.0); EOSINOPHILS % (AUTO) 2.2 % (0.0-3.0); HEMATOCRIT 41.9 % (42.0-52.0); HEMOGLOBIN 13.6 G/DL (14.2-18.0); LYMPHOCYTES % (AUTO) 24.9 % (20.0-45.0); MEAN CORPUSCULAR VOLUME 87 FL (80-99); MONOCYTES % (AUTO) 10.2 % (1.0-10.0); NEUTROPHILS % (AUTO) 61.8 % (45.0-75.0); PLATELET COUNT 118 K/UL (150-450); RED BLOOD COUNT 4.79 M/UL (4.70-6.10); RED CELL DISTRIBUTION WIDTH 14.4 % (11.6-14.8); WHITE BLOOD COUNT 4.9 K/UL (4.8-10.8)
[2018-11-09 07:14] LABS: ANION GAP 8 mmol/L (5-15); BLOOD UREA NITROGEN 16 mg/dL (7-18); CALCIUM 8.7 MG/DL (8.5-10.1); CARBON DIOXIDE 26 MMOL/L (21-32); CHLORIDE 109 MMOL/L (98-107); CREATININE 0.8 MG/DL (0.55-1.30); POTASSIUM 3.6 MMOL/L (3.5-5.1); SODIUM 143 MMOL/L (136-145)
[2018-11-09 08:00] VITALS: BP 130/65
[2018-11-09] MEDS: Tamsulosin 0.4mg cap ORAL SCH ×2 (08:25→17:20)
[2018-11-09] MEDS: Docusate 100mg cap ORAL SCH ×3 (08:26→17:20)
[2018-11-09] MEDS: Sertraline 50mg tab ORAL SCH (08:26)
[2018-11-09] MEDS: oxyCODONE 15mg IR tab ORAL PRN (08:27)
[2018-11-09] MEDS: Metoprolol 25mg tab ORAL SCH ×2 (08:36→20:35)
--- NOTE | 2018-11-09 10:37 | General Progress Note ---
Assessment/Plan Assessment/Plan colonoscopy cancelled, patient unable to tolerate prep given no anemia and no recurrent bleed, neg stool ob, will follow up as an outpatient KUB for abdominal distention >> unremarkable titrate bowel regime prn transfusion possible history of Hep C cirrhosis, fu labs pain mgmt zofran prn Imodium as needed fu labs outpatient GI procedures Subjective ROS Limited/Unobtainable: Yes Allergies: Coded Allergies: ACETAMINOPHEN (Verified Allergy, Unknown, 08/28/18) ASPIRIN (Verified Allergy, Unknown, 08/28/18) KETOROLAC (Verified Allergy, Unknown, 08/28/18) NSAIDS (NON-STEROIDAL ANTI-INFLAMMA (Verified Allergy, Unknown, 09/09/18) Objective Last 24 Hour Vital Signs Date Time Temp Pulse Resp B/P (MAP) Pulse Ox O2 Delivery O2 Flow Rate FiO2 11/09/18 08:36 68 130/65 11/09/18 08:00 98.6 68 20 130/65 (86) 98 11/09/18 04:00 97.3 61 19 111/56 (74) 95 11/09/18 00:00 96.8 54 19 121/60 (80) 94 11/08/18 21:00 Room Air 11/08/18 21:00 71 119/58 11/08/18 20:00 97.3 71 19 119/58 (78) 93 11/08/18 18:52 97.0 11/08/18 16:00 97.0 62 19 103/53 (70) 95 11/08/18 12:00 98.0 67 20 117/56 (76) 97 Intake and Output 11/08/18 11/09/18 19:00 07:00 Intake Total 5 ml 250 ml Balance 5 ml 250 ml Intake Oral 5 ml 250 ml # Voids 3 # Bowel Movements 1 Laboratory Tests 11/09/18 05:45: White Blood Count 4.9, Red Blood Count 4.79, Hemoglobin 13.6L, Hematocrit 41.9L , Mean Corpuscular Volume 87, Mean Corpuscular Hemoglobin 28.4, Mean Corpuscular Hemoglobin Concent 32.5, Red Cell Distribution Width 14.4, Platelet Count 118L, Mean Platelet Volume 7.4, Neutrophils (%) (Auto) 61.8, Lymphocytes ( %) (Auto) 24.9, Monocytes (%) (Auto) 10.2H, Eosinophils (%) (Auto) 2.2, Basophils (%) (Auto) 0.8, Sodium Level 143, Potassium Level 3.6, Chloride Level 109H, Carbon Dioxide Level 26, Anion Gap 8, Blood Urea Nitrogen 16, Creatinine 0.8, Estimat Glomerular Filtration Rate > 60, Glucose Level 101, Calcium Level 8.7 Height (Feet): 6 Height (Inches): 4.00 Weight (Pounds): 288 General Appearance: no apparent distress EENT: normal ENT inspection Neck: supple Cardiovascular: normal rate Respiratory/Chest: decreased breath sounds Abdomen: normal bowel sounds, non tender, soft Extremities: non-tender Arthur Ramos MD Nov 09, 2018 10:37
[2018-11-09 11:54] VITALS: BP 113/65
[2018-11-09 16:00] VITALS: BP 116/61
--- NOTE | 2018-11-09 16:30 | General Progress Note ---
Assessment/Plan Assessment/Plan Covering for Dr. Spears # Thrombocytopenia due to underlying hep C, stable approx 100k --> Cont to monitor and tend plt count for stability/improvement --> Oupatient tx for hep c. --> Hep panel in past showed hep c. HIV negative --> US abd does not show cirrhosis or hsm --> Peripheral smear ordered to evaluate for blasts /schistocytes and none noted --> abx and other meds have been reviewed --> ok for ppx if plt >50k w/ wither heparin or lovenox --> Trend 109k--> 102k--> 77k-->68k-->80k-->101k-->117k-->124k --> outpatiet hep c treatment # Leukopenia - due to underlying hep C --> Improved/Resolved --> US abd does not show cirrhosis or hsm --> o/p eradication as per gi # GI bleed with blood stool --> h/h stable, therefore outpatient eval # Abdominal pain --> Pain has improved --> with blood emesis, outpatient w/u --> surgery was consulted, no surgery intervention planned. # History of CVA (cerebrovascular accident) # Gallstones GREATLY APPRECIATE CONSULTATION. Subjective HEENT: Reports: no symptoms Cardiovascular: Denies: no symptoms, chest pain, edema, irregular heart rate, lightheadedness, palpitations, syncope, other Respiratory: Denies: no symptoms, cough, orthopnea, shortness of breath, SOB with excertion, SOB at rest, sputum, stridor, wheezing, other Gastrointestinal/Abdominal: Denies: no symptoms, abdomen distended, abdominal pain, black stools, tarry stools, blood in stool, constipated, diarrhea, difficulty swallowing, nausea, poor appetite, poor fluid intake, rectal bleeding , vomiting, other Genitourinary: Denies: no symptoms, burning, discharge, frequency, flank pain, hematuria, incontinence, pain, urgency, other Neurologic/Psychiatric: Denies: no symptoms, anxiety, depressed, emotional problems, headache, numbness, paresthesia, pre-existing deficit, seizure, tingling, tremors, weakness, other Endocrine: Denies: no symptoms, excessive sweating, flushing, intolerance to cold, intolerance to heat, increased hunger, increased thirst, increased urine, unexplained weight gain, unexplained weight loss, other Hematologic/Lymphatic: Denies: no symptoms, anemia, easy bleeding, easy bruising, other Allergies: Coded Allergies: ACETAMINOPHEN (Verified Allergy, Unknown, 08/28/18) ASPIRIN (Verified Allergy, Unknown, 08/28/18) KETOROLAC (Verified Allergy, Unknown, 08/28/18) NSAIDS (NON-STEROIDAL ANTI-INFLAMMA (Verified Allergy, Unknown, 09/09/18) Subjective Pt awake and alert. No acute events. VS better 11/08: no events, tolerating treatment well, tolerating diet 11/09: Scratching at scrotum. Scrotum elevated and calazime applied. Patient reminded not to scratch scrotum Objective Last 24 Hour Vital Signs Date Time Temp Pulse Resp B/P (MAP) Pulse Ox O2 Delivery O2 Flow Rate FiO2 11/09/18 16:00 97.9 71 20 116/61 (79) 99 11/09/18 14:13 97.3 11/09/18 11:54 97.3 69 21 113/65 (81) 98 11/09/18 09:00 Room Air 11/09/18 08:36 68 130/65 11/09/18 08:00 98.6 68 20 130/65 (86) 98 11/09/18 04:00 97.3 61 19 111/56 (74) 95 11/09/18 00:00 96.8 54 19 121/60 (80) 94 11/08/18 21:00 Room Air 11/08/18 21:00 71 119/58 11/08/18 20:00 97.3 71 19 119/58 (78) 93 Intake and Output 11/08/18 11/09/18 18:59 06:59 Intake Total 5 ml 250 ml Balance 5 ml 250 ml Intake Oral 5 ml 250 ml # Voids 3 # Bowel Movements 1 Laboratory Tests 11/09/18 05:45: White Blood Count 4.9, Red Blood Count 4.79, Hemoglobin 13.6L, Hematocrit 41.9L , Mean Corpuscular Volume 87, Mean Corpuscular Hemoglobin 28.4, Mean Corpuscular Hemoglobin Concent 32.5, Red Cell Distribution Width 14.4, Platelet Count 118L, Mean Platelet Volume 7.4, Neutrophils (%) (Auto) 61.8, Lymphocytes ( %) (Auto) 24.9, Monocytes (%) (Auto) 10.2H, Eosinophils (%) (Auto) 2.2, Basophils (%) (Auto) 0.8, Sodium Level 143, Potassium Level 3.6, Chloride Level 109H, Carbon Dioxide Level 26, Anion Gap 8, Blood Urea Nitrogen 16, Creatinine 0.8, Estimat Glomerular Filtration Rate > 60, Glucose Level 101, Calcium Level 8.7 Height (Feet): 6 Height (Inches): 4.00 Weight (Pounds): 288 General Appearance: alert EENT: TMs normal Neck: supple Cardiovascular: regular rhythm Abdomen: no organomegaly Extremities: non-tender Objective General Appearance: normal inspection, well appearing, no apparent distress Head: atraumatic ENT: normal ENT inspection, hearing grossly normal, normal voice Neck: normal inspection, full range of motion, supple, no bony tend Respiratory: normal inspection, lungs clear, normal breath sounds, no respiratory distress, no retraction, no wheezing Cardiovascular #1: regular rate, rhythm, no edema Gastrointestinal: normal inspection, normal bowel sounds, non tender, soft, no guarding, no hernia Genitourinary: no CVA tenderness Musculoskeletal: normal inspection, back normal, normal range of motion Neurologic: normal inspection, alert, responsive, speech normal Psychiatric: normal inspection, judgement/insight normal, mood/affect normal Skin: normal inspection, normal color, no rash Bebo Agustin MD Nov 09, 2018 16:30
--- NOTE | 2018-11-09 16:36 | General Surgery Progress Note ---
General Surgery-Progress Note Subjective Symptoms: improved, pain absent, tolerating diet, passing flatus Additional Comments no acute events. Objective Last 24 Hour Vital Signs Date Time Temp Pulse Resp B/P (MAP) Pulse Ox O2 Delivery O2 Flow Rate FiO2 11/09/18 16:00 97.9 71 20 116/61 (79) 99 11/09/18 14:13 97.3 11/09/18 11:54 97.3 69 21 113/65 (81) 98 11/09/18 09:00 Room Air 11/09/18 08:36 68 130/65 11/09/18 08:00 98.6 68 20 130/65 (86) 98 11/09/18 04:00 97.3 61 19 111/56 (74) 95 11/09/18 00:00 96.8 54 19 121/60 (80) 94 11/08/18 21:00 Room Air 11/08/18 21:00 71 119/58 11/08/18 20:00 97.3 71 19 119/58 (78) 93 I&O Intake and Output 11/08/18 11/09/18 18:59 06:59 Intake Total 5 ml 250 ml Balance 5 ml 250 ml Intake Oral 5 ml 250 ml # Voids 3 # Bowel Movements 1 Drains: none Cardiovascular: RSR Respiratory: clear Abdomen: soft, flat, non-tender, present bowel sounds Extremities: no cyanosis Laboratory Tests Test 11/09/18 05:45 White Blood Count 4.9 K/UL (4.8-10.8) Red Blood Count 4.79 M/UL (4.70-6.10) Hemoglobin 13.6 G/DL (14.2-18.0) L Hematocrit 41.9 % (42.0-52.0) L Mean Corpuscular Volume 87 FL (80-99) Mean Corpuscular Hemoglobin 28.4 PG (27.0-31.0) Mean Corpuscular Hemoglobin Concent 32.5 G/DL (32.0-36.0) Red Cell Distribution Width 14.4 % (11.6-14.8) Platelet Count 118 K/UL (150-450) L Mean Platelet Volume 7.4 FL (6.5-10.1) Neutrophils (%) (Auto) 61.8 % (45.0-75.0) Lymphocytes (%) (Auto) 24.9 % (20.0-45.0) Monocytes (%) (Auto) 10.2 % (1.0-10.0) H Eosinophils (%) (Auto) 2.2 % (0.0-3.0) Basophils (%) (Auto) 0.8 % (0.0-2.0) Sodium Level 143 MMOL/L (136-145) Potassium Level 3.6 MMOL/L (3.5-5.1) Chloride Level 109 MMOL/L (98-107) H Carbon Dioxide Level 26 MMOL/L (21-32) Anion Gap 8 mmol/L (5-15) Blood Urea Nitrogen 16 mg/dL (7-18) Creatinine 0.8 MG/DL (0.55-1.30) Estimat Glomerular Filtration Rate > 60 mL/min (>60) Glucose Level 101 MG/DL (74-106) Calcium Level 8.7 MG/DL (8.5-10.1) Plan Problems: (1) Intractable abdominal pain Assessment & Plan: improving US noted CT noted pain resolved wounds on legs improved -okay for diet -no surgical intervention planned -okay to d/c from surgical standpoint thank you will follow with Rashid Bond Nov 09, 2018 16:36
--- NOTE | 2018-11-09 17:15 | Progress Note ---
DATE: 11/09/2018 SUBJECTIVE: This is a 52-year-old male with flank pain and GI pain. He is very confused, disorganized, and mood labile. DIAGNOSIS: Bipolar 2. PLAN: Continue titrating up. We will continue him on Depakote to stabilize his mood. Provided him with 20 minutes of cognitive behavioral therapy to help him identify his automatic negative thoughts and to help him convert his negative thoughts to more positive thoughts . Twenty minutes of cognitive behavioral therapy provided. Amy Benites M.D. DR: TAY JOB#: [id number] CC:
[2018-11-09 20:00] VITALS: BP 115/59
[2018-11-09] MEDS: TraZODone 50mg tab ORAL SCH (20:35)
[2018-11-10] VITALS: BP 119/52
[2018-11-10 04:00] VITALS: BP 123/60
[2018-11-10 08:00] VITALS: BP 115/59
[2018-11-10] MEDS: Sertraline 50mg tab ORAL SCH (08:22)
[2018-11-10] MEDS: Metoprolol 25mg tab ORAL SCH (08:22)
[2018-11-10] MEDS: Tamsulosin 0.4mg cap ORAL SCH (08:23)
[2018-11-10] MEDS: Docusate 100mg cap ORAL SCH ×2 (08:23→12:46)
--- NOTE | 2018-11-10 10:51 | Infectious Diseases Prog Note ---
Assessment/Plan Assessment/Plan Assessment/Plan Low grade fever, SP -CXR: No acute process. Borderline cardiomegaly No leukocytosis GIB RLQ pain- 2ry to hepatitis; improving -Abd US: Cholelithiasis with apparent wall thickening measuring 3 - 4 mm. Negative sonographic Cook sign. -CT abd/p : Liver: Fatty and slightly nodular liver. Correlate for cirrhosis. Gallbladder and bile ducts: Cholelithiasis. Elevated LFTs, improving Chronic Hep C, untreated,p robable cirrhosis -Hep C ab + VL 805K -Hep A not immune, Hep B immune and +Bc ab -HIV ab sc and VL neg 11/03 Cdiff neg psychosis HTN prostate surgery laminectomy GERD cholelithiasis duodenal diverticulum constipation BPH MDD rheumatic fever 1990 CVA 2012 with left sided weakness nephrolithiasis renal stent halfway resident Plan: -Continue to monitor off abx as clinically stable -f/u cx -Monitor CBC/C MP, temperatures -f/u hep serologies -GI, Sx f/u -Needs Hep C treatment and Hep A immunization as an outpatient. Thank you for this consultation. Will continue to follow along with you. Discussed with RN. Subjective Allergies: Coded Allergies: ACETAMINOPHEN (Verified Allergy, Unknown, 08/28/18) ASPIRIN (Verified Allergy, Unknown, 08/28/18) KETOROLAC (Verified Allergy, Unknown, 08/28/18) NSAIDS (NON-STEROIDAL ANTI-INFLAMMA (Verified Allergy, Unknown, 09/09/18) Subjective afebrile no leukocytosis Objective Vital Signs Last 24 Hour Vital Signs Date Time Temp Pulse Resp B/P (MAP) Pulse Ox O2 Delivery O2 Flow Rate FiO2 11/10/18 09:00 Room Air 11/10/18 08:52 96.6 11/10/18 08:22 69 115/59 11/10/18 08:00 96.6 69 19 115/59 (77) 93 11/10/18 04:00 96.3 57 19 123/60 (81) 93 11/10/18 00:00 96.2 62 19 119/52 (74) 93 11/09/18 21:00 Room Air 11/09/18 20:35 69 115/59 11/09/18 20:00 96.6 69 19 115/59 (77) 93 11/09/18 16:00 97.9 71 20 116/61 (79) 99 11/09/18 11:54 97.3 69 21 113/65 (81) 98 Height (Feet): 6 Height (Inches): 4.00 Weight (Pounds): 292 Objective GENERAL: Calm in bed, oriented x2, slight distress secondary to abdominal pain. CARDIOVASCULAR: No murmur. LUNGS: Distant and clear. ABDOMEN: Bowel sound positive. Slightly tender. No guarding. No rigidity. No rebound. EXTREMITIES: No cyanosis, clubbing, or edema. NEUROLOGIC: The patient moves all extremities, slightly weak. Current Medications Medications (Trade) Dose Ordered Sig/Hugo Route PRN Reason Start Time Stop Time Status Last Admin Dose Admin Al Hydroxide/Mg Hydroxide (Mylanta II) 30 ml Q6H PRN ORAL dyspepsia 10/23/18 14:50 11/22/18 14:49 Aripiprazole (Abilify) 5 mg BEDTIME ORAL 10/23/18 21:00 11/22/18 20:59 11/09/18 20:35 Carisoprodol (Soma) 350 mg THREE TIMES A DAY ORAL 10/25/18 18:00 11/22/18 21:59 11/10/18 08:22 Dextrose (Dextrose 50%) 25 ml Q30M PRN IV Hypoglycemia 10/23/18 14:51 11/22/18 14:50 Dextrose (Dextrose 50%) 50 ml Q30M PRN IV Hypoglycemia 10/23/18 14:51 11/22/18 14:50 Diphenhydramine HCl (Benadryl) 25 mg Q6H PRN ORAL Itching/Pruritis 10/23/18 14:50 11/22/18 14:49 11/07/18 14:08 Docusate Sodium (Colace) 100 mg TID ORAL 10/25/18 18:00 11/22/18 20:59 11/10/18 08:23 Famotidine (Pepcid) 20 mg Q12HR ORAL 10/28/18 09:00 11/27/18 08:59 11/10/18 08:22 Gabapentin (Neurontin) 600 mg THREE TIMES A DAY ORAL 10/23/18 18:00 11/22/18 17:59 11/10/18 08:22 Loperamide HCl (Imodium) 2 mg Q4H PRN ORAL Diarrhea 11/02/18 15:15 1/17/19 15:14 11/04/18 09:43 Magnesium Hydroxide (Mom) 30 ml HSPRN PRN ORAL Constipation 10/23/18 21:00 11/22/18 20:59 Metoprolol Tartrate (Lopressor) 25 mg EVERY 12 HOURS ORAL 10/23/18 21:00 11/22/18 20:59 11/10/18 08:22 Ondansetron HCl (Zofran) 4 mg Q6H PRN IVP Nausea & Vomiting 10/23/18 14:50 11/22/18 14:49 Oxycodone HCl (Roxicodone) 15 mg Q8H PRN ORAL Pain 4-10 11/07/18 20:00 11/14/18 19:59 11/09/18 08:27 Sertraline HCl (Zoloft) 50 mg DAILY ORAL 10/24/18 09:00 11/23/18 08:59 11/10/18 08:22 Tamsulosin HCl (Flomax) 0.4 mg BID ORAL 10/23/18 18:00 11/22/18 17:59 11/10/18 08:23 Trazodone HCl (Desyrel) 50 mg BEDTIME ORAL 10/23/18 21:00 11/22/18 20:59 11/09/18 20:35 Nesha Park M.D. Nov 10, 2018 10:51
--- NOTE | 2018-11-10 11:50 | GI Progress Note ---
Assessment/Plan Problems: (1) Diarrhea ICD Codes: R19.7 - Diarrhea, unspecified SNOMED: 56929958 (2) Psychosis ICD Codes: F29 - Unspecified psychosis not due to a substance or known physiological condition SNOMED: 85949875 (3) Depressed ICD Codes: F32.9 - Major depressive disorder, single episode, unspecified SNOMED: 55185370 (4) Cirrhosis ICD Codes: K74.60 - Unspecified cirrhosis of liver SNOMED: 48698866 (5) Lower GI bleed ICD Codes: K92.2 - Gastrointestinal hemorrhage, unspecified SNOMED: 79038719 Status: stable Status Narrative Discussed with Dr. Ramos Assessment/Plan colonoscopy cancelled, patient unable to tolerate prep given no anemia and no recurrent bleed, neg stool ob, will follow up as an outpatient KUB for abdominal distention >> unremarkable titrate bowel regime prn transfusion possible history of Hep C cirrhosis, fu labs pain mgmt zofran prn Imodium as needed fu labs outpatient GI procedures The patient was seen and examined at bedside and all new and available data was reviewed in the patients chart. I agree with the above findings, impression and plan. (Patient seen earlier today. Signature stamp does not reflect patient encounter time.). - Arthur Ramos MD Subjective Subjective Abdominal discomfort abdominal distention improved Patient continues to complain of mild diarrhea, improved Objective Last 24 Hour Vital Signs Date Time Temp Pulse Resp B/P (MAP) Pulse Ox O2 Delivery O2 Flow Rate FiO2 11/10/18 09:00 Room Air 11/10/18 08:52 96.6 11/10/18 08:22 69 115/59 11/10/18 08:00 96.6 69 19 115/59 (77) 93 11/10/18 04:00 96.3 57 19 123/60 (81) 93 11/10/18 00:00 96.2 62 19 119/52 (74) 93 11/09/18 21:00 Room Air 11/09/18 20:35 69 115/59 11/09/18 20:00 96.6 69 19 115/59 (77) 93 11/09/18 16:00 97.9 71 20 116/61 (79) 99 11/09/18 11:54 97.3 69 21 113/65 (81) 98 Intake and Output 11/09/18 11/10/18 19:00 07:00 Intake Total 960 ml Balance 960 ml Intake Oral 960 ml # Voids 6 1 # Bowel Movements 1 Height (Feet): 6 Height (Inches): 4.00 Weight (Pounds): 292 General Appearance: WD/WN, no apparent distress, alert Cardiovascular: normal rate Respiratory/Chest: normal breath sounds, no respiratory distress Abdominal Exam: normal bowel sounds, non tender, soft Extremities: normal range of motion, non-tender Santiago Rouse NP Nov 10, 2018 11:50
[2018-11-10] MEDS: oxyCODONE 15mg IR tab ORAL PRN (11:55)
[2018-11-10 12:00] VITALS: BP 150/53
--- NOTE | 2018-11-10 15:15 | Progress Note ---
DATE: 11/10/2018 SUBJECTIVE: This is a 52-year-old male patient with flank pain and GI bleeding, but this patient does have some confusion and disorganized thought process, and that is why his attending has requested daily psychiatric consultation. This patient was seen by Psychiatry daily throughout his hospital course. this patient today is very confused and disorganized. He does have some mood lability. He also has some psychomotor agitation and confusion. Cognition has declined below his baseline and he also has some mood lability. MENTAL STATUS EXAMINATION: This is a 52-year-old male. Appearance is disheveled. Attitude, irritable and agitated. Affect, guarded and restricted. Intellect poor. Mood, depressed and anxious. Motor activity, psychomotor agitation. Attention span is poor. Orientation x2. Speech is pressured. Thought process, disorganized and illogical. Thought content, auditory hallucinations and paranoid delusions. Insight is poor. DIAGNOSES: 1. Paranoid schizophrenia, acute exacerbation. 2. Rule out depression with psychotic features. PLAN: Treat him with Abilify 5 mg nightly, Neurontin 600 mg three times a day, trazodone 50 mg nightly, and Zoloft 50 mg daily. Provided him with 20 minutes of cognitive behavioral therapy to help him convert his automatic negative thoughts to more positive thinking to reduce depression, anxiety, and suicidality. Chart reviewed and discussed with staff. Twenty minutes of cognitive behavioral therapy to help him convert his automatic negative thoughts to more positive thinking to reduce depression and anxiety, and to help him have more adaptive behavioral pattern. Amy Benites M.D. DR: AMAN JOB#: [id number] CC:
[2018-11-10 16:00] VITALS: BP 113/54
--- NOTE | 2018-11-11 09:14 | General Progress Note ---
Assessment/Plan Status: stable Assessment/Plan Covering for Dr. Spears # Thrombocytopenia due to underlying hep C, stable approx 100k --> Cont to monitor and tend plt count for stability/improvement --> Oupatient tx for hep c. --> Hep panel in past showed hep c. HIV negative --> US abd does not show cirrhosis or hsm --> Peripheral smear ordered to evaluate for blasts /schistocytes and none noted --> abx and other meds have been reviewed --> ok for ppx if plt >50k w/ wither heparin or lovenox --> Trend 109k--> 102k--> 77k-->68k-->80k-->101k-->117k-->124k --> outpatiet hep c treatment # Leukopenia - due to underlying hep C --> Improved/Resolved --> US abd does not show cirrhosis or hsm --> o/p eradication as per gi # GI bleed with blood stool --> h/h stable, therefore outpatient eval # Abdominal pain --> Pain has improved --> with blood emesis, outpatient w/u --> surgery was consulted, no surgery intervention planned. # History of CVA (cerebrovascular accident) # Gallstones GREATLY APPRECIATE CONSULTATION. Subjective Date patient seen: Nov 10, 2018 Allergies: Coded Allergies: ACETAMINOPHEN (Verified Allergy, Unknown, 08/28/18) ASPIRIN (Verified Allergy, Unknown, 08/28/18) KETOROLAC (Verified Allergy, Unknown, 08/28/18) NSAIDS (NON-STEROIDAL ANTI-INFLAMMA (Verified Allergy, Unknown, 09/09/18) All Systems: reviewed and negative except above Subjective Pt awake and alert. No acute events. VS better 11/08: no events, tolerating treatment well, tolerating diet 11/09: Scratching at scrotum. Scrotum elevated and calazime applied. Patient reminded not to scratch scrotum 11/10: Pt awake and alert. No acute events. DC planning. Objective Last 24 Hour Vital Signs Date Time Temp Pulse Resp B/P (MAP) Pulse Ox O2 Delivery O2 Flow Rate FiO2 11/10/18 16:00 98.2 60 18 113/54 (73) 94 11/10/18 13:17 96.6 12/26/18 12:00 96.7 66 18 150/53 (85 94 Intake and Output 11/10/18 11/11/18 19:00 07:00 Intake Total 480 ml Balance 480 ml Intake Oral 480 ml # Voids 12 Height (Feet): 6 Height (Inches): 4.00 Weight (Pounds): 292 Objective General Appearance: normal inspection, well appearing, no apparent distress Head: atraumatic ENT: normal ENT inspection, hearing grossly normal, normal voice Neck: normal inspection, full range of motion, supple, no bony tend Respiratory: normal inspection, lungs clear, normal breath sounds, no respiratory distress, no retraction, no wheezing Cardiovascular #1: regular rate, rhythm, no edema Gastrointestinal: normal inspection, normal bowel sounds, non tender, soft, no guarding, no hernia Genitourinary: no CVA tenderness Musculoskeletal: normal inspection, back normal, normal range of motion Neurologic: normal inspection, alert, responsive, speech normal Psychiatric: normal inspection, judgement/insight normal, mood/affect normal Skin: normal inspection, normal color, no rash Bebo Agustin MD Nov 11, 2018 09:14
--- NOTE | 2018-11-12 12:38 | Discharge Summary ---
Discharge Summary Discharge Summary _ DATE OF ADMISSION: 10/23/2018 DATE OF DISCHARGE: 11/10/2018 DISCHARGED BY: Dr. Roberto Georges CONSULTANTS: Dr. Taz Christiansen [facility] COURSE: Patient is a 52-year-old male, from [facility], presented to ED complaining of abdominal pain and increased emesis with bloody stools. Patient reported lower abdominal pain as well as decreased urine output. He reported history of renal stent. Pain was described to be sharp in nature, localized to the right lower quadrant. He denied any fever. He reported diarrhea with black stools. He had medical history significant for stroke with left-sided hemiparesis, rheumatic, he eventually defervesced. In 1990, hypertension, hepatitis C, GERD, BPH, and kidney stones. On evaluation at the ED, vital signs were stable. Blood work did not show any leukocytosis, hemoglobin and hematocrit were stable, platelet count 150,000. LFTs were elevated. Urinalysis with positive nitrite, 2+ leukocyte esterase, 0- 2 RBC and 2-4 WBC. He had a CT of the abdomen and pelvis that showed cholelithiasis and cirrhosis. He was then admitted for evaluation of abdominal pain. He underwent patient had right lower quadrant abdominal pain. CT showed normal appendix and cholelithiasis. He was placed on n.p.o. and was given IV fluids. Abdominal ultrasound was ordered and showed cholelithiasis with apparent wall thickening measuring 3-4 mm, negative sonographic Cook sign. GI was consulted for evaluation of rectal bleed. Patient stated he never had colonoscopy before. He was planned for colonoscopy, however procedure was canceled as patient was unable to tolerate prep. Given patient had stable hemoglobin and hematocrit and there was no recurrent bleed he was advised colonoscopy as outpatient. He complained of abdominal distention. He was given bowel regimen. KUB done was unremarkable. ID was consulted. Patient was afebrile with no leukocytosis. He was observed off antibiotic treatment. Hepatitis and HIV was ordered. Patient has thrombocytopenia, related to hepatitis C. Platelet count was stable. Psychiatric evaluation was done. He was diagnosed with bipolar disorder and paranoid schizophrenia. He was given Abilify, Neurontin, trazodone and Zoloft. He was provided with 20 minutes of cognitive behavioral therapy. Diet was advanced. There was no surgical intervention planned. HIV screen and viral load were negative. Hepatitis C positive. Will need outpatient treatment. He had an episode of low grade fever. He eventually defervesced. He had a difficulty finding placement. He was referred to several nursing homes. Pulsed was completed indicating DNR, DNI, comfort focused care and no artificial nutrition. Patient was eventually accepted at [facility]. Patient was discharged to a snf. FINAL DIAGNOSES: Intractable abdominal pain with cholelithiasis Liver cirrhosis Hepatitis C Elevated LFTs Thrombocytopenia due to underlying hepatitis C Leukopenia due to underlying hepatitis C Old CVA with left hemiparesis Paranoid schizophrenia Bipolar disorder Diarrhea, C. difficile negative Major depressive disorder BPH with history of prostate surgery GERD Hypertension Nephrolithiasis with renal stent DISPOSITION: Patient was discharged to a SNF. DISCHARGE MEDICATIONS: Refer to Discharge Medication List. DISCHARGE INSTRUCTIONS: Will need hep C treatment and hep A immunization as outpatient I have been assigned to dictate discharge summary on this account, and I was not involved in the patient's management. Elba Ortiz NP Nov 12, 2018 12:38
== END 2018-11-10 16:15 | DRG 378 ==
LOC: EDBD 11:20 → EMR 11:53 → EDBEDREQ 17:39 → 3E 18:00 → EDBEDREQ 18:17 → 4E 19:16
DX: K92.1 Melena (principal); N39.0 Urinary tract infection, site not specified; F32.3 Major depressive disorder, single episode, severe with psychotic features; F31.62 Bipolar disorder, current episode mixed, moderate; F20.0 Paranoid schizophrenia; I69.959 Hemiplegia and hemiparesis following unspecified cerebrovascular disease affecting unspecified side; K74.60 Unspecified cirrhosis of liver; I25.10 Atherosclerotic heart disease of native coronary artery without angina pectoris; I10 Essential (primary) hypertension; N40.0 Benign prostatic hyperplasia without lower urinary tract symptoms; N20.0 Calculus of kidney; D69.6 Thrombocytopenia, unspecified; B18.2 Chronic viral hepatitis C; D72.819 Decreased white blood cell count, unspecified; R19.7 Diarrhea, unspecified
CPT/HCPCS: 36415; 51702; 71045; 74018; 74177; 76700; 80048; 80053; 80061; 80076; 81003; 82140; 82270; 82728; 83036; 83690; 83735; 83880; 84100; 84153; 84439; 84443; 84481; 85007; 85025; 85610; 85730; 86703; 86704; 86705; 86708; 86709; 86850; 86900; 86901; 87081; 87324; 87340; 87517; 87522; 87536; 96361; 96374; 96375; 99285; J2405; J8499

== ENCOUNTER 2019-01-07 16:47 | Inpatient (IN) | payer MEDICARE, MEDICAID ==
[~2019-01-07] VITALS: Ht 172.7 cm; Wt 81.6 kg
[~2019-01-07 16:47] MED LIST changes: +ABILIFY5 MG ORAL; +FLEET ENEMA133 ML RECTAL; +METOPROLOL-HCT1 EAC3 ORAL; +TRAMADOL HCL50 MG ORAL
--- NOTE | 2019-01-07 17:00 | NUR ---
ED Nurse Note: patient brought in by ambulance from [facility] patient c/o chest pain that started this morning 01/07/19 around 2am. a/o xr, left side weakness Addendum: 01/07/19 at 1906 by MSEO patient brought in by ambulance from [facility] patient c/o chest pain that started this morning 01/07/19 around 2am. a/o x4, left side weakness
[2019-01-07 17:13] LABS: HEMATOCRIT 49.4 % (42.0-52.0); HEMOGLOBIN 15.6 G/DL (14.2-18.0); MEAN CORPUSCULAR VOLUME 86 FL (80-99); PLATELET COUNT 84 K/UL (150-450); RED BLOOD COUNT 5.74 M/UL (4.70-6.10); RED CELL DISTRIBUTION WIDTH 15.2 % (11.6-14.8); WHITE BLOOD COUNT 7.7 K/UL (4.8-10.8)
[2019-01-07] MEDS ORDERED: PROSCAR5 MG ORAL (17:13)
[2019-01-07] MEDS ORDERED: SERTRALINE HCL50 MG ORAL (17:15)
[2019-01-07] MEDS ORDERED: DULCOLAX10 MG RC (17:15)
[2019-01-07] MEDS ORDERED: HYDROmorphone 1mg/ml Carpuject IVP ONE (17:15)
[2019-01-07] MEDS ORDERED: SENNA8.6 M2 PO (17:15)
[2019-01-07] MEDS ORDERED: Nitroglycerin 2% oint pkt TOPIC ONE (17:15)
[2019-01-07 17:22] LABS: INR 1.1 (0.9-1.1)
--- NOTE | 2019-01-07 17:24 | Emergency Room Report ---
History of Present Illness General Chief Complaint: Chest Pain Source: Patient Present Illness HPI Patient presents with chest pain. This began last night. He rates that 8/10. He's been taking nitroglycerin. Paramedics performed an EKG that showed no injury. He also gave the patient Dr. france without any help. The patient's been seen here in the past. He status post stroke. H/O hepatitis C. Renal caluli, pyelonephritis in past. Denies dysuria. Admitted in October for intractable abdominal pain. Patient just discharged from hospital. Plavix was stopped. 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 Reviewed Nursing Documentation: PMH: Agreed; PSxH: Agreed Nursing Documentation-PMH Past Medical History: No History, Except For Hx Cardiac Problems: Yes - STROKE 2013, RHEUMATIC FEVER, hyperlipidemia Hx Hypertension: Yes Hx Cancer: No Hx Gastrointestinal Problems: Yes - GERD, abdominal pain Hx Dialysis: No - History of kidney stones, UTI, BPH Hx Neurological Problems: Yes Hx Cerebrovascular Accident: Yes - Left sided hemiparesis Hx Weakness: Yes Hx Neurologic Surgery: No Review of Systems All Other Systems: negative except mentioned in HPI Physical Exam Vital Signs Date Time Temp Pulse Resp B/P (MAP) Pulse Ox O2 Delivery O2 Flow Rate FiO2 01/07/19 16:50 99.1 88 16 120/68 99 Room Air Sp02 EP Interpretation: reviewed, normal General Appearance: no apparent distress, alert, Chronically Ill Head: normocephalic Eyes: bilateral eye normal inspection, bilateral eye PERRL ENT: moist mucus membranes Neck: supple Respiratory: lungs clear, normal breath sounds Cardiovascular #1: regular rate, rhythm Cardiovascular #2: 2+ radial (R) Gastrointestinal: normal inspection, normal bowel sounds, non tender, no mass, non-distended, overweight Genitourinary: no CVA tenderness Musculoskeletal: back normal, normal range of motion, no calf tenderness Neurologic: alert, oriented x3, motor weakness - L hemiparesis Psychiatric: mood/affect normal Skin: normal color, other - seborrhea Medical Decision Making Diagnostic Impression: Primary Impression: Chest pain Qualified Codes: R07.9 - Chest pain, unspecified Additional Impressions: UTI (urinary tract infection) Qualified Codes: N39.0 - Urinary tract infection, site not specified Thrombocytopenia History of CVA (cerebrovascular accident) ER Course Patient presents with left-sided chest pressure that he feels is cardiac. Differential includes acute myocardial infarction, acute coronary syndrome, unstable angina amongst others. Patient will be evaluated with EKG, chest x- ray and labs. The patient will be treated with nitroglycerin glycerin paced and Dilaudid. The patient is allergic to aspirin. The patient is placed on a geodetic technician. EKG was normal sinus rhythm left axis deviation nonspecific ST-T wave changes chest x-ray with cardiomegaly no infiltrates. Labs with normal WBC, low platelets. Pyuria. Patient improved with pain medication and pain free. Patient needs observation for repeated troponins and continued observation for UTI. Admit obs tele, Dr. Georges. Laboratory Tests Test 01/07/19 17:04 01/07/19 17:34 White Blood Count 7.7 K/UL (4.8-10.8) Red Blood Count 5.74 M/UL (4.70-6.10) Hemoglobin 15.6 G/DL (14.2-18.0) Hematocrit 49.4 % (42.0-52.0) Mean Corpuscular Volume 86 FL (80-99) Mean Corpuscular Hemoglobin 27.1 PG (27.0-31.0) Mean Corpuscular Hemoglobin Concent 31.5 G/DL (32.0-36.0) L Red Cell Distribution Width 15.2 % (11.6-14.8) H Platelet Count 84 K/UL (150-450) L Mean Platelet Volume 10.5 FL (6.5-10.1) H Neutrophils (%) (Auto) % (45.0-75.0) Lymphocytes (%) (Auto) % (20.0-45.0) Monocytes (%) (Auto) % (1.0-10.0) Eosinophils (%) (Auto) % (0.0-3.0) Basophils (%) (Auto) % (0.0-2.0) Differential Total Cells Counted 100 Neutrophils % (Manual) 70 % (45-75) Lymphocytes % (Manual) 23 % (20-45) Monocytes % (Manual) 6 % (1-10) Eosinophils % (Manual) 0 % (0-3) Basophils % (Manual) 0 % (0-2) Band Neutrophils 1 % (0-8) Platelet Estimate Decreased L Platelet Morphology Normal Polychromasia 1+ Anisocytosis 1+ Prothrombin Time 11.8 SEC (9.30-11.50) H Prothrombin Time INR 1.1 (0.9-1.1) PTT 28 SEC (23-33) Sodium Level 139 MMOL/L (136-145) Potassium Level 3.8 MMOL/L (3.5-5.1) Chloride Level 106 MMOL/L (98-107) Carbon Dioxide Level 24 MMOL/L (21-32) Anion Gap 9 mmol/L (5-15) Blood Urea Nitrogen 10 mg/dL (7-18) Creatinine 0.9 MG/DL (0.55-1.30) Estimate Glomerular Filtration Rate > 60 mL/min (>60) Glucose Level 106 MG/DL (74-106) Calcium Level 9.1 MG/DL (8.5-10.1) Total Bilirubin 0.4 MG/DL (0.2-1.0) Aspartate Amino Transferase (AST) 89 U/L (15-37) H Alanine Aminotransferase (ALT) 105 U/L (12-78) H Alkaline Phosphatase 96 U/L (46-116) Total Creatine Kinase 65 U/L (26-308) Troponin I 0.005 ng/mL (0.000-0.056) Pro-B-Type Natriuretic Peptide 49 pg/mL (0-125) Total Protein 8.1 G/DL (6.4-8.2) Albumin 3.1 G/DL (3.4-5.0) L Globulin 5.0 g/dL Albumin/Globulin Ratio 0.6 (1.0-2.7) L Urine Color Yellow Urine Appearance Very cloudy Urine pH 9 (4.5-8.0) Urine Specific [place] 1.015 (1.005-1.035) Urine Protein 2+ (NEGATIVE) H Urine Glucose (UA) Negative (NEGATIVE) Urine Ketones 1+ (NEGATIVE) H Urine Blood 5+ (NEGATIVE) H Urine Nitrite Positive (NEGATIVE) H Urine Bilirubin Negative (NEGATIVE) Urine Urobilinogen 1 MG/DL (0.0-1.0) H Urine Leukocyte Esterase 3+ (NEGATIVE) H Urine RBC 5-10 /HPF (0 - 0) H Urine WBC 15-20 /HPF (0 - 0) H Urine Squamous Epithelial Cells None /LPF (NONE/OCC) Urine Amorphous Sediment Many /LPF (NONE) H Urine Bacteria Many /HPF (NONE) H Urine Opiates Screen Negative (NEGATIVE) Urine Barbiturates Screen Negative (NEGATIVE) Phencyclidine (PCP) Screen Negative (NEGATIVE) Urine Amphetamines Screen Negative (NEGATIVE) Urine Benzodiazepines Screen Negative (NEGATIVE) Urine Cocaine Screen Negative (NEGATIVE) Urine Marijuana (THC) Screen Negative (NEGATIVE) EKG Diagnostic Results Rate: normal Rhythm: NSR ST Segments: no acute changes Rhythm Strip Diag. Results EP Interpretation: yes Rhythm: NSR, no PVC's, no ectopy Chest X-Ray Diagnostic Results Chest X-Ray Diagnostic Results : Chest X-Ray Ordered: Yes # of Views/Limited/Complete: 1 View Indication: Chest Pain Interpretation: no consolidation, no effusion, no pneumothorax Impression: No acute disease Electronically Signed by: Electronically signed by Will Barr MD Last Vital Signs Date Time Temp Pulse Resp B/P (MAP) Pulse Ox O2 Delivery O2 Flow Rate FiO2 01/08/19 00:00 81 01/08/19 00:00 97.0 18 124/69 (87) 95 01/07/19 21:15 Room Air Status: improved Disposition: PLACE IN OBSERVATION Condition: Serious Will Barr MD Jan 07, 2019 17:24
[2019-01-07 17:38] LABS: ANION GAP 9 mmol/L (5-15); BLOOD UREA NITROGEN 10 mg/dL (7-18); CALCIUM 9.1 MG/DL (8.5-10.1); CARBON DIOXIDE 24 MMOL/L (21-32); CHLORIDE 106 MMOL/L (98-107); CREATININE 0.9 MG/DL (0.55-1.30); POTASSIUM 3.8 MMOL/L (3.5-5.1); SODIUM 139 MMOL/L (136-145)
--- NOTE | 2019-01-07 17:38 | Diagnostic Imaging Report ---
History: CP Exam: XR CXR 1 VIEW Comparison: 12/31/2018 FINDINGS: The lungs appear clear. Cardiac silhouette again appears prominent. The visualized osseous structures appear within limits. IMPRESSION: No evidence of acute disease.
[2019-01-07 17:48] LABS: ALANINE AMINOTRANSFERASE 105 U/L (12-78); ALBUMIN 3.1 G/DL (3.4-5.0); ALBUMIN/GLOBULIN RATIO 0.6 (1.0-2.7); ALKALINE PHOSPHATASE 96 U/L (46-116); ASPARTATE AMINO TRANSFERASE 89 U/L (15-37); BILIRUBIN,TOTAL 0.4 MG/DL (0.2-1.0); CREATINE KINASE 65 U/L (26-308)
[2019-01-07 18:01] LABS: APPEARANCE,URINE VERY CLOUDY; BILIRUBIN, URINE NEGATIVE (NEGATIVE); GLUCOSE, URINE (UA) NEGATIVE (NEGATIVE); KETONES,URINE 1+ (NEGATIVE); LEUKOCYTE ESTERASE ,URINE 3+ (NEGATIVE); NITRITE,URINE POSITIVE (NEGATIVE); PH,URINE 9 (4.5-8.0); PROTEIN,URINE 2+ (NEGATIVE); UROBILINOGEN,URINE 1 MG/DL (0.0-1.0)
[2019-01-07 18:02] LABS: COLOR,URINE YELLOW
[2019-01-07 18:13] VITALS: BP 120/68
--- NOTE | 2019-01-07 19:10 | NUR ---
HAND-OFF: Report given to Edwar ABDI rn patient is in bed stable condistion. .
[2019-01-07] MEDS ORDERED: cefTRIAXone 1 GM in NS 55 ML IVPB ONE (20:00)
[2019-01-07 21:15] VITALS: BP 116/69
--- NOTE | 2019-01-07 21:15 | NUR ---
NURSE NOTES: Received pt. from ED via sher. Pt. transferred to bed without any incident. Pt. is A/O x4. [place] pt. to unit, room, and hospital policies. brand marketing intern in placed, IV site is intact, asymptomatic and patent. Receive report from ADELE Villagran. Belongings list checked and accounted. Bed is in the lowest position and locked, call light within reach. No chest pain or acute distress noted at this time. Will contact Dr. Georges for admission orders.
--- NOTE | 2019-01-07 21:15 | NUR ---
TRANSFER TO FLOOR: Patient transferred to Telemetry 220-2 as ordered, per MD José Manuel. Report given to ADELE Garcia. Belongings list completed with receiving RN.
[2019-01-07] MEDS ORDERED: Miralax 17gm pkt ORAL PRN (22:15)
[2019-01-07] MEDS ORDERED: Albuterol/Ipratropium 3ml neb HHN PRN (22:15)
[2019-01-07] MEDS ORDERED: Nitroglycerin Subl 0.4mg tab SL PRN (22:15)
[2019-01-07] MEDS ORDERED: Enalaprilat 2.5mg/2ml Inj IV PRN (22:15)
[2019-01-07] MEDS ORDERED: dilTIAZem HCl 25mg/5ml Inj IV PRN (22:15)
[2019-01-08] VITALS: BP 124/69
[2019-01-08] MEDS: Morphine Sulfate 2mg/ml Inj(IV/IM USE ONLY) IVP PRN ×5 (01:05→17:36)
[2019-01-08 04:00] VITALS: BP 118/69
[2019-01-08 08:00] VITALS: BP 134/72
--- NOTE | 2019-01-08 08:00 | NUR ---
NURSE NOTES: Pt awake/alert in bed, breathing easily on room air, denies SOB c/o chest pressure pain at this time, informed that next morphine not available until 0830. Vital signs stable with SR at 78 on monitor. IV access right a/c flushed with 10 ml NS and lock. Bed left in low position, side rails up x 3 and call light left near pt's hand.
--- NOTE | 2019-01-08 08:01 | NUR ---
HAND-OFF: Report given to ADELE Chavarria.
[2019-01-08 08:44] LABS: HEMATOCRIT 46.3 % (42.0-52.0); HEMOGLOBIN 14.9 G/DL (14.2-18.0); MEAN CORPUSCULAR VOLUME 85 FL (80-99); PLATELET COUNT 98 K/UL (150-450); RED BLOOD COUNT 5.42 M/UL (4.70-6.10); RED CELL DISTRIBUTION WIDTH 15.3 % (11.6-14.8); WHITE BLOOD COUNT 7.2 K/UL (4.8-10.8)
[2019-01-08 08:48] LABS: INR 1.1 (0.9-1.1)
[2019-01-08] MEDS: Sertraline 50mg tab ORAL SCH (08:53)
[2019-01-08] MEDS: Metoprolol 25mg tab ORAL SCH ×2 (08:55→20:55)
[2019-01-08] MEDS: Tamsulosin 0.4mg cap ORAL SCH ×2 (08:55→17:35)
[2019-01-08] MEDS ORDERED: Heparin 5000 units/ml inj SUBQ SCH (09:00)
[2019-01-08 09:03] LABS: CHOLESTEROL 94 MG/DL (< 200); HDL CHOLESTEROL 22 MG/DL (40-60); TRIGLYCERIDES 53 MG/DL (30-150)
--- NOTE | 2019-01-08 10:00 | History and Physical Report ---
DATE OF ADMISSION: 01/07/2019 TIME SEEN: On 01/08/2019 at 8 a.m. CONSULTANTS: 1. Tu Hughes M.D. 2. Lexy Christiansen M.D. 3. Walter Chance M.D. CHIEF COMPLAINT: Chest pain, UTI. BRIEF HISTORY: This is a 53-year-old male from [facility], who presented with chest pain, substernal, sharp, radiating to the left arm, no dizziness, no loss of consciousness, for about a day. The patient came to [facility], diagnosed with the above and also urinary tract infection, admitted to telemetry for further care. Currently, calm in bed, slightly weak, no complaint. REVIEW OF SYSTEMS: Slight chest pain. Slight short of breath. No nausea, vomiting, or diarrhea. PAST MEDICAL HISTORY: Includes CVA, psychosis, hepatitis C, cirrhosis, gallstones. PAST SURGICAL HISTORY: Back surgery. ALLERGIES: Tylenol, aspirin, ketorolac, NSAIDs. MEDICATIONS: Include aripiprazole, atorvastatin, trazodone, Soma, clopidogrel, finasteride, metoprolol, Sertraline, tamsulosin, albuterol, polyethylene glycol, Zofran, enalapril, diltiazem, ceftriaxone, nitroglycerin, Dilaudid. SOCIAL HISTORY: No smoking. No alcohol. No intravenous drug abuse. FAMILY HISTORY: Noncontributory. PHYSICAL EXAMINATION: GENERAL: Calm in bed, oriented x2, in no acute distress. VITAL SIGNS: Temperature is 98 degrees, pulse 74, respirations 20, blood pressure 118/69. CARDIOVASCULAR: No murmur. LUNGS: Distant, clear. ABDOMEN: Bowel sounds positive. Nontender. Nondistended. EXTREMITIES: Show no cyanosis or edema. NEUROLOGIC: The patient moves all extremities, slightly weak. LABORATORY AND DIAGNOSTIC DATA: Labs at this time show platelet is 84,000, otherwise CBC is normal. BMP shows AST/ALT 89/105, albumin 3.1. INR 1.1, PTT 28. Urinalysis shows 3+ leukocyte esterase. Urine toxicology is negative. ASSESSMENT: Chest pain, UTI, hepatitis C, cirrhosis, CVA, psychosis, gallstone, malnutrition. PLAN: Pain control. Antibiotics per Infectious Disease. PT and dietary evaluation. Resume home medications. Troponin q.8 h. x3. EKG in the morning. Cardiology followup. We will add Psychiatry and Hematology followup as well. CBC and BMP in the morning. Roberto Georges D.O. DR: Suzy JOB#: [id number] CC:
--- NOTE | 2019-01-08 10:34 | Consultation ---
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 Denied dysuria, dizziness, n/v/d, urinary frequency/hesitancy. Of note, patient was admitted here Mid October 2018 for abd pain which was thought to be 2ry to acute hepatitis Allergies: Coded Allergies: ACETAMINOPHEN (Verified Allergy, Unknown, 08/28/18) ASPIRIN (Verified Allergy, Unknown, 08/28/18) KETOROLAC (Verified Allergy, Unknown, 08/28/18) NSAIDS (NON-STEROIDAL ANTI-INFLAMMA (Verified Allergy, Unknown, 09/09/18) Medication History Scheduled Aripiprazole* (Abilify*), 5 MG ORAL BEDTIME, (Reported) Atorvastatin Calcium* (Atorvastatin Calcium*), 20 MG ORAL BEDTIME, (Reported) Bisacodyl (Bisacodyl), 10 MG RC PRN, (Reported) Bisacodyl (Dulcolax), 10 MG RC NEEDED, (Reported) Carisoprodol* (Carisoprodol*), 350 MG ORAL QID, (Reported) Clopidogrel Bisulfate* (Plavix*), 75 MG ORAL DAILY, (Reported) Cranberry Fruit Concentrate (Cranberry), 900 MG PO BID, (Reported) Docusate Sodium* (Colace*), 100 MG ORAL DAILY, (Reported) Famotidine (Famotidine), 20 MG ORAL AC, (Reported) Finasteride* (Proscar*), 5 MG ORAL DAILY, (Reported) Finasteride* (Proscar*), 5 MG ORAL DAILY, (Reported) Folic Acid* (Folic Acid*), 1 MG ORAL DAILY, (Reported) Gabapentin* (Gabapentin*), 600 MG ORAL THREE TIMES A DAY, (Reported) Lactulose (Lactulose*), 30 ML ORAL DAILY, (Reported) Metoprolol Tartrate* (Metoprolol Tartrate*), 25 MG ORAL EVERY 12 HOURS, ( Reported) Multivitamin With Minerals (Multivitamins With Minerals*), 1 TAB ORAL DAILY, ( Reported) Sennosides (Senna), 8.6 MG PO BEDTIME, (Reported) Sertraline Hcl* (Zoloft*), 50 MG ORAL DAILY, (Reported) Sertraline Hcl* (Zoloft*), 50 MG ORAL DAILY, (Reported) Tamsulosin Hcl (Tamsulosin Hcl*), 0.4 MG ORAL BID, (Reported) Trazodone Hcl* (Desyrel*), 50 MG ORAL BEDTIME, (Reported) Scheduled PRN Magnesium Hydroxide* (Milk Of Magnesia*), 30 ML ORAL BEDTIME PRN for IF NO BM X 3 DAYS, (Reported) Na Phos,M-B/Na Phos,Di-Ba* (Fleet Enema*), 133 ML RECTAL QOD PRN for IF BISACODYL INEFFECTIVE, (Reported) Tramadol Hcl* (Ultram*), 50 MG ORAL Q8HR PRN for SEVERE PAIN (8-10), (Reported) Patient History Healthcare decision maker N Resuscitation status Full Code Advanced Directive on File Patient History Narrative Pmhx: as above Shx: Denies: smoking - former Fhx: non contributory Review of Systems All Other Systems: negative except mentioned in HPI Physical Exam Physical Exam Narrative PHYSICAL EXAMINATION: GENERAL: Calm in bed, oriented x2, in no acute distress. VITAL SIGNS: Temperature is 98 degrees, pulse 74, respirations 20, blood pressure 118/69. CARDIOVASCULAR: No murmur. LUNGS: Distant, clear. ABDOMEN: Bowel sounds positive. Nontender. Nondistended. EXTREMITIES: Show no cyanosis or edema. NEUROLOGIC: The patient moves all extremities, slightly weak. Last 24 Hour Vital Signs Date Time Temp Pulse Resp B/P (MAP) Pulse Ox O2 Delivery O2 Flow Rate FiO2 01/08/19 08:55 73 118/69 01/08/19 08:00 84 20 134/72 (92) 93 01/08/19 04:00 73 01/08/19 04:00 98.2 74 20 118/69 (85) 95 01/08/19 00:00 81 01/08/19 00:00 97.0 80 18 124/69 (87) 95 01/07/19 22:09 Room Air 01/07/19 21:15 96.6 80 18 116/69 (85) 96 01/07/19 21:15 98.8 88 11 120/68 94 Room Air 01/07/19 18:14 98.8 01/07/19 18:13 98.8 88 11 120/68 94 Room Air 01/07/19 18:13 88 16 Room Air 01/07/19 17:44 128/67 01/07/19 16:50 99.1 88 16 120/68 99 Room Air Intake and Output 01/07/19 01/08/19 18:59 06:59 Intake Total 55 ml Balance 55 ml Intake IV Total 55 ml # Voids 2 Laboratory Tests Test 01/07/19 17:04 01/07/19 17:34 01/08/19 07:20 White Blood Count 7.7 K/UL (4.8-10.8) 7.2 K/UL (4.8-10.8) Red Blood Count 5.74 M/UL (4.70-6.10) 5.42 M/UL (4.70-6.10) Hemoglobin 15.6 G/DL (14.2-18.0) 14.9 G/DL (14.2-18.0) Hematocrit 49.4 % (42.0-52.0) 46.3 % (42.0-52.0) Mean Corpuscular Volume 86 FL (80-99) 85 FL (80-99) Mean Corpuscular Hemoglobin 27.1 PG (27.0-31.0) 27.4 PG (27.0-31.0) Mean Corpuscular Hemoglobin Concent 31.5 G/DL (32.0-36.0) L 32.1 G/DL (32.0-36.0) Red Cell Distribution Width 15.2 % (11.6-14.8) H 15.3 % (11.6-14.8) H Platelet Count 84 K/UL (150-450) L 98 K/UL (150-450) L Mean Platelet Volume 10.5 FL (6.5-10.1) H 10.9 FL (6.5-10.1) H Neutrophils (%) (Auto) % (45.0-75.0) % (45.0-75.0) Lymphocytes (%) (Auto) % (20.0-45.0) % (20.0-45.0) Monocytes (%) (Auto) % (1.0-10.0) % (1.0-10.0) Eosinophils (%) (Auto) % (0.0-3.0) % (0.0-3.0) Basophils (%) (Auto) % (0.0-2.0) % (0.0-2.0) Differential Total Cells Counted 100 Neutrophils % (Manual) 70 % (45-75) Pending Lymphocytes % (Manual) 23 % (20-45) Pending Monocytes % (Manual) 6 % (1-10) Eosinophils % (Manual) 0 % (0-3) Basophils % (Manual) 0 % (0-2) Band Neutrophils 1 % (0-8) Platelet Estimate Decreased L Pending Platelet Morphology Normal Pending Polychromasia 1+ Anisocytosis 1+ Prothrombin Time 11.8 SEC (9.30-11.50) H 11.6 SEC (9.30-11.50) H Prothromb Time International Ratio 1.1 (0.9-1.1) 1.1 (0.9-1.1) Activated Partial Thromboplast Time 28 SEC (23-33) 28 SEC (23-33) Sodium Level 139 MMOL/L (136-145) Potassium Level 3.8 MMOL/L (3.5-5.1) Chloride Level 106 MMOL/L (98-107) Carbon Dioxide Level 24 MMOL/L (21-32) Anion Gap 9 mmol/L (5-15) Blood Urea Nitrogen 10 mg/dL (7-18) Creatinine 0.9 MG/DL (0.55-1.30) Estimat Glomerular Filtration Rate > 60 mL/min (>60) Glucose Level 106 MG/DL (74-106) Calcium Level 9.1 MG/DL (8.5-10.1) Total Bilirubin 0.4 MG/DL (0.2-1.0) Aspartate Amino Transf (AST/SGOT) 89 U/L (15-37) H Alanine Aminotransferase (ALT/SGPT) 105 U/L (12-78) H Alkaline Phosphatase 96 U/L (46-116) Total Creatine Kinase 65 U/L (26-308) Troponin I 0.005 ng/mL (0.000-0.056) 0.000 ng/mL (0.000-0.056) Pro-B-Type Natriuretic Peptide 49 pg/mL (0-125) Total Protein 8.1 G/DL (6.4-8.2) Albumin 3.1 G/DL (3.4-5.0) L Globulin 5.0 g/dL Albumin/Globulin Ratio 0.6 (1.0-2.7) L Urine Color Yellow Urine Appearance Very cloudy Urine pH 9 (4.5-8.0) Urine Specific [place] 1.015 (1.005-1.035) Urine Protein 2+ (NEGATIVE) H Urine Glucose (UA) Negative (NEGATIVE) Urine Ketones 1+ (NEGATIVE) H Urine Blood 5+ (NEGATIVE) H Urine Nitrite Positive (NEGATIVE) H Urine Bilirubin Negative (NEGATIVE) Urine Urobilinogen 1 MG/DL (0.0-1.0) H Urine Leukocyte Esterase 3+ (NEGATIVE) H Urine RBC 5-10 /HPF (0 - 0) H Urine WBC 15-20 /HPF (0 - 0) H Urine Squamous Epithelial Cells None /LPF (NONE/OCC) Urine Amorphous Sediment Many /LPF (NONE) H Urine Bacteria Many /HPF (NONE) H Urine Opiates Screen Negative (NEGATIVE) Urine Barbiturates Screen Negative (NEGATIVE) Phencyclidine (PCP) Screen Negative (NEGATIVE) Urine Amphetamines Screen Negative (NEGATIVE) Urine Benzodiazepines Screen Negative (NEGATIVE) Urine Cocaine Screen Negative (NEGATIVE) Urine Marijuana (THC) Screen Negative (NEGATIVE) C-Reactive Protein, Quantitative 1.5 mg/dL (0.00-0.90) H Triglycerides Level 53 MG/DL (30-150) Cholesterol Level 94 MG/DL (< 200) LDL Cholesterol 66 mg/dL (<100) HDL Cholesterol 22 MG/DL (40-60) L Cholesterol/HDL Ratio 4.3 (3.3-4.4) Thyroid Stimulating Hormone (TSH) 2.727 uiU/mL (0.358-3.740) Microbiology Date/Time Source Procedure Growth Status 01/07/19 17:34 Urine,Clean Catch Urine Culture - Preliminary Gram Negative Jb Resulted Height (Feet): 5 Height (Inches): 8.00 Weight (Pounds): 180 Medications Current Medications Medications (Trade) Dose Ordered Sig/Hugo Route PRN Reason Start Time Stop Time Status Last Admin Dose Admin Albuterol/ Ipratropium (Albuterol/ Ipratropium) 3 ml EVERY 4 HOURS PRN HHN Shortness of Breath 01/07/19 22:15 01/12/19 22:14 Aripiprazole (Abilify) 5 mg BEDTIME ORAL 01/08/19 21:00 02/07/19 20:59 Atorvastatin Calcium (Lipitor) 20 mg BEDTIME ORAL 01/08/19 21:00 02/07/19 20:59 Carisoprodol (Soma) 350 mg QID ORAL 01/08/19 09:00 02/07/19 08:59 01/08/19 08:54 Clopidogrel Bisulfate (Plavix) 75 mg DAILY ORAL 01/08/19 09:00 02/07/19 08:59 01/08/19 08:53 Diltiazem HCl (Cardizem) 10 mg EVERY HOUR PRN IV heart rate more than 120, 01/07/19 22:15 02/06/19 22:14 Enalaprilat (Vasotec) 2.5 mg EVERY 6 HOURS PRN IV sbp more than 160 01/07/19 22:15 02/06/19 22:14 Finasteride (Proscar) 5 mg DAILY ORAL 01/08/19 09:00 02/07/19 08:59 01/08/19 08:53 Gabapentin (Neurontin) 600 mg THREE TIMES A DAY ORAL 01/08/19 09:00 02/07/19 08:59 01/08/19 08:55 Heparin Sodium (Porcine) (Heparin 5000 units/ml) 5,000 units EVERY 12 HOURS SUBQ 01/08/19 09:00 02/07/19 08:59 UNV Metoprolol Tartrate (Lopressor) 25 mg EVERY 12 HOURS ORAL 01/08/19 09:00 02/07/19 08:59 01/08/19 08:55 Morphine Sulfate (Morphine Sulfate) 2 mg EVERY 4 HOURS PRN IVP severe Pain (Pain Scale 7-10) 01/07/19 22:15 01/14/19 22:14 01/08/19 09:34 Nitroglycerin (Ntg) 0.4 mg Q5M PRN SL Prn Chest Pain 01/07/19 22:15 02/06/19 22:14 Ondansetron HCl (Zofran) 4 mg Q6H PRN IVP Nausea & Vomiting 01/07/19 22:15 02/06/19 22:14 Polyethylene Glycol (Miralax) 17 gm DAILYPRN PRN ORAL Constipation 01/07/19 22:15 02/06/19 22:14 Sertraline HCl (Zoloft) 50 mg DAILY ORAL 01/08/19 09:00 02/07/19 08:59 01/08/19 08:53 Tamsulosin HCl (Flomax) 0.4 mg BID ORAL 01/08/19 09:00 02/07/19 08:59 01/08/19 08:55 Temazepam (Restoril) 15 mg HSPRN PRN ORAL Insomnia 01/07/19 22:15 01/14/19 22:14 Trazodone HCl (Desyrel) 50 mg BEDTIME ORAL 01/08/19 21:00 02/07/19 20:59 Assessment/Plan Assessment/Plan Abx: Ceftriaxone x1 01/07 Assessment: Chest pain -CXR: No evidence of acute disease. 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 Will continue to follow along with you. Discussed with Nesha Mccoy M.D. Jan 08, 2019 10:34
--- NOTE | 2019-01-08 10:47 | Cardiology Progress Note ---
Assessment/Plan Assessment/Plan The patient is seen and examined, full consult note is dictated. Objective Last 24 Hour Vital Signs Date Time Temp Pulse Resp B/P (MAP) Pulse Ox O2 Delivery O2 Flow Rate FiO2 01/08/19 08:55 73 118/69 01/08/19 08:00 84 20 134/72 (92) 93 01/08/19 04:00 73 01/08/19 04:00 98.2 74 20 118/69 (85) 95 01/08/19 00:00 81 01/08/19 00:00 97.0 80 18 124/69 (87) 95 01/07/19 22:09 Room Air 01/07/19 21:15 96.6 80 18 116/69 (85) 96 01/07/19 21:15 98.8 88 11 120/68 94 Room Air 01/07/19 18:14 98.8 01/07/19 18:13 98.8 88 11 120/68 94 Room Air 01/07/19 18:13 88 16 Room Air 01/07/19 17:44 128/67 01/07/19 16:50 99.1 88 16 120/68 99 Room Air Intake and Output 01/07/19 01/08/19 18:59 06:59 Intake Total 55 ml Balance 55 ml Intake IV Total 55 ml # Voids 2 Laboratory Tests Test 01/07/19 17:04 01/07/19 17:34 01/08/19 07:20 White Blood Count 7.7 K/UL (4.8-10.8) 7.2 K/UL (4.8-10.8) Red Blood Count 5.74 M/UL (4.70-6.10) 5.42 M/UL (4.70-6.10) Hemoglobin 15.6 G/DL (14.2-18.0) 14.9 G/DL (14.2-18.0) Hematocrit 49.4 % (42.0-52.0) 46.3 % (42.0-52.0) Mean Corpuscular Volume 86 FL (80-99) 85 FL (80-99) Mean Corpuscular Hemoglobin 27.1 PG (27.0-31.0) 27.4 PG (27.0-31.0) Mean Corpuscular Hemoglobin Concent 31.5 G/DL (32.0-36.0) L 32.1 G/DL (32.0-36.0) Red Cell Distribution Width 15.2 % (11.6-14.8) H 15.3 % (11.6-14.8) H Platelet Count 84 K/UL (150-450) L 98 K/UL (150-450) L Mean Platelet Volume 10.5 FL (6.5-10.1) H 10.9 FL (6.5-10.1) H Neutrophils (%) (Auto) % (45.0-75.0) % (45.0-75.0) Lymphocytes (%) (Auto) % (20.0-45.0) % (20.0-45.0) Monocytes (%) (Auto) % (1.0-10.0) % (1.0-10.0) Eosinophils (%) (Auto) % (0.0-3.0) % (0.0-3.0) Basophils (%) (Auto) % (0.0-2.0) % (0.0-2.0) Differential Total Cells Counted 100 Neutrophils % (Manual) 70 % (45-75) Pending Lymphocytes % (Manual) 23 % (20-45) Pending Monocytes % (Manual) 6 % (1-10) Eosinophils % (Manual) 0 % (0-3) Basophils % (Manual) 0 % (0-2) Band Neutrophils 1 % (0-8) Platelet Estimate Decreased L Pending Platelet Morphology Normal Pending Polychromasia 1+ Anisocytosis 1+ Prothrombin Time 11.8 SEC (9.30-11.50) H 11.6 SEC (9.30-11.50) H Prothromb Time International Ratio 1.1 (0.9-1.1) 1.1 (0.9-1.1) Activated Partial Thromboplast Time 28 SEC (23-33) 28 SEC (23-33) Sodium Level 139 MMOL/L (136-145) Potassium Level 3.8 MMOL/L (3.5-5.1) Chloride Level 106 MMOL/L (98-107) Carbon Dioxide Level 24 MMOL/L (21-32) Anion Gap 9 mmol/L (5-15) Blood Urea Nitrogen 10 mg/dL (7-18) Creatinine 0.9 MG/DL (0.55-1.30) Estimat Glomerular Filtration Rate > 60 mL/min (>60) Glucose Level 106 MG/DL (74-106) Calcium Level 9.1 MG/DL (8.5-10.1) Total Bilirubin 0.4 MG/DL (0.2-1.0) Aspartate Amino Transf (AST/SGOT) 89 U/L (15-37) H Alanine Aminotransferase (ALT/SGPT) 105 U/L (12-78) H Alkaline Phosphatase 96 U/L (46-116) Total Creatine Kinase 65 U/L (26-308) Troponin I 0.005 ng/mL (0.000-0.056) 0.000 ng/mL (0.000-0.056) Pro-B-Type Natriuretic Peptide 49 pg/mL (0-125) Total Protein 8.1 G/DL (6.4-8.2) Albumin 3.1 G/DL (3.4-5.0) L Globulin 5.0 g/dL Albumin/Globulin Ratio 0.6 (1.0-2.7) L Urine Color Yellow Urine Appearance Very cloudy Urine pH 9 (4.5-8.0) Urine Specific [place] 1.015 (1.005-1.035) Urine Protein 2+ (NEGATIVE) H Urine Glucose (UA) Negative (NEGATIVE) Urine Ketones 1+ (NEGATIVE) H Urine Blood 5+ (NEGATIVE) H Urine Nitrite Positive (NEGATIVE) H Urine Bilirubin Negative (NEGATIVE) Urine Urobilinogen 1 MG/DL (0.0-1.0) H Urine Leukocyte Esterase 3+ (NEGATIVE) H Urine RBC 5-10 /HPF (0 - 0) H Urine WBC 15-20 /HPF (0 - 0) H Urine Squamous Epithelial Cells None /LPF (NONE/OCC) Urine Amorphous Sediment Many /LPF (NONE) H Urine Bacteria Many /HPF (NONE) H Urine Opiates Screen Negative (NEGATIVE) Urine Barbiturates Screen Negative (NEGATIVE) Phencyclidine (PCP) Screen Negative (NEGATIVE) Urine Amphetamines Screen Negative (NEGATIVE) Urine Benzodiazepines Screen Negative (NEGATIVE) Urine Cocaine Screen Negative (NEGATIVE) Urine Marijuana (THC) Screen Negative (NEGATIVE) C-Reactive Protein, Quantitative 1.5 mg/dL (0.00-0.90) H Triglycerides Level 53 MG/DL (30-150) Cholesterol Level 94 MG/DL (< 200) LDL Cholesterol 66 mg/dL (<100) HDL Cholesterol 22 MG/DL (40-60) L Cholesterol/HDL Ratio 4.3 (3.3-4.4) Thyroid Stimulating Hormone (TSH) 2.727 uiU/mL (0.358-3.740) Microbiology Date/Time Source Procedure Growth Status 01/07/19 17:34 Urine,Clean Catch Urine Culture - Preliminary Gram Negative Jb Resulted Tu Hughes MD Jan 08, 2019 10:47
[2019-01-08 12:00] VITALS: BP 136/71
--- NOTE | 2019-01-08 13:38 | NUR ---
CASE MANAGEMENT: REVIEW 53/M BIBA FROM [facility] CC: CHEST PAIN SI: CHEST PAIN . T 99.1 HR 88 RR 16 BP 120/68 SAT 99% ROOM AIR AST 89 ALT 105 TROPONIN I 0.005 IS: DILAUDID IV X1 NITRO TOPICAL X1 CEFTRIAXONE IV X1 PATIENT ADMITTED TO TELEMETRY UNIT 01/07/2019 DCP: PATIENT IS FROM [facility]
--- NOTE | 2019-01-08 14:16 | Consultation ---
History of Present Illness General Date patient seen: Jan 08, 2019 Time patient seen: 11:00 Chief Complaint: Chest Pain Referring physician: dr Georges Reason for Consultation: chest pain, Present Illness HPI 53 y/old male with PMH of CVA with a left hemiparesis, liver cirrhosis, renal calculi , pyelonephritis, BPH, coronary artery disease, hepatitis C , presented to emergency department with complaint of chest pain. Paramedics performed an EKG en route , that showed no acute ischemic changes. Patient received nitro without much help. Patient reported similar symptoms in the past. Patient was just recently dc from the hospital with similar problems, Upon evaluation vital signs were stable. Laboratory workup revealed no leukocytosis , stable hemoglobin and hematocrit , stable electrolytes . Glucose 106 AST 89, ALT 105 . Troponin - 0.005 , EKG revealed no acute ischemic changes , pro BNP 49. Urinalysis with evidence of bacteriuria, pyuria , +3 leukocyte esterase , and +2 protein. Urine toxicology screen was negative. Chest x-ray revealed no acute cardiopulmonary pathology . Patient subsequently was admitted for further management. Allergies: Coded Allergies: ACETAMINOPHEN (Verified Allergy, Unknown, 08/28/18) ASPIRIN (Verified Allergy, Unknown, 08/28/18) KETOROLAC (Verified Allergy, Unknown, 08/28/18) NSAIDS (NON-STEROIDAL ANTI-INFLAMMA (Verified Allergy, Unknown, 09/09/18) Medication History Scheduled Aripiprazole* (Abilify*), 5 MG ORAL BEDTIME, (Reported) Atorvastatin Calcium* (Atorvastatin Calcium*), 20 MG ORAL BEDTIME, (Reported) Bisacodyl (Bisacodyl), 10 MG RC PRN, (Reported) Bisacodyl (Dulcolax), 10 MG RC NEEDED, (Reported) Carisoprodol* (Carisoprodol*), 350 MG ORAL QID, (Reported) Clopidogrel Bisulfate* (Plavix*), 75 MG ORAL DAILY, (Reported) Cranberry Fruit Concentrate (Cranberry), 900 MG PO BID, (Reported) Docusate Sodium* (Colace*), 100 MG ORAL DAILY, (Reported) Famotidine (Famotidine), 20 MG ORAL AC, (Reported) Finasteride* (Proscar*), 5 MG ORAL DAILY, (Reported) Finasteride* (Proscar*), 5 MG ORAL DAILY, (Reported) Folic Acid* (Folic Acid*), 1 MG ORAL DAILY, (Reported) Gabapentin* (Gabapentin*), 600 MG ORAL THREE TIMES A DAY, (Reported) Lactulose (Lactulose*), 30 ML ORAL DAILY, (Reported) Metoprolol Tartrate* (Metoprolol Tartrate*), 25 MG ORAL EVERY 12 HOURS, ( Reported) Multivitamin With Minerals (Multivitamins With Minerals*), 1 TAB ORAL DAILY, ( Reported) Sennosides (Senna), 8.6 MG PO BEDTIME, (Reported) Sertraline Hcl* (Zoloft*), 50 MG ORAL DAILY, (Reported) Sertraline Hcl* (Zoloft*), 50 MG ORAL DAILY, (Reported) Tamsulosin Hcl (Tamsulosin Hcl*), 0.4 MG ORAL BID, (Reported) Trazodone Hcl* (Desyrel*), 50 MG ORAL BEDTIME, (Reported) Scheduled PRN Magnesium Hydroxide* (Milk Of Magnesia*), 30 ML ORAL BEDTIME PRN for IF NO BM X 3 DAYS, (Reported) Na Phos,M-B/Na Phos,Di-Ba* (Fleet Enema*), 133 ML RECTAL QOD PRN for IF BISACODYL INEFFECTIVE, (Reported) Tramadol Hcl* (Ultram*), 50 MG ORAL Q8HR PRN for SEVERE PAIN (8-10), (Reported) Patient History History Provided By: Patient, Medical Record Healthcare decision maker N Resuscitation status Full Code Advanced Directive on File Past Medical/Surgical History Past Medical/Surgical History: (1) History of CVA (cerebrovascular accident) (2) Cirrhosis (3) Hepatitis C (4) CAD (coronary artery disease) (5) Psychosis (6) Gall stone (7) History of urethral stent Review of Systems Constitutional: Reports: weakness Eye: Reports: no symptoms ENT: Reports: no symptoms Respiratory: Reports: no symptoms Cardiovascular: Reports: see HPI Gastrointestinal: Reports: other - hep C, cirrhosis Genitourinary: Reports: other - hx of pyelo, Skin: Reports: no symptoms Psychiatric: Reports: other - psych disorder Neurological: Reports: no symptoms Endocrine: Reports: no symptoms Hematologic/Lymphatic: Reports: no symptoms Physical Exam General Appearance: no apparent distress, alert - awake, responsive, flat affect Lines, tubes and drains: peripheral HEENT: normocephalic, atraumatic, anicteric, mucous membranes moist Neck: non-tender, normal alignment, supple Respiratory/Chest: lungs clear, no respiratory distress, no accessory muscle use Abdomen: normal bowel sounds, non tender, soft Extremities: no calf tenderness, other - LS weakness Skin Exam: warm/dry Neurologic: abnormal gait, alert, oriented x 3, responsive, pronator drift - LS weakness Musculoskeletal: atrophy - BLE Last 24 Hour Vital Signs Date Time Temp Pulse Resp B/P (MAP) Pulse Ox O2 Delivery O2 Flow Rate FiO2 01/08/19 12:00 76 01/08/19 08:55 73 118/69 01/08/19 08:00 84 20 134/72 (92) 93 01/08/19 08:00 78 01/08/19 04:00 73 01/08/19 04:00 98.2 74 20 118/69 (85) 95 01/08/19 00:00 81 01/08/19 00:00 97.0 80 18 124/69 (87) 95 01/07/19 22:09 Room Air 01/07/19 21:15 96.6 80 18 116/69 (85) 96 01/07/19 21:15 98.8 88 11 120/68 94 Room Air 01/07/19 18:14 98.8 01/07/19 18:13 98.8 88 11 120/68 94 Room Air 01/07/19 18:13 88 16 Room Air 01/07/19 17:44 128/67 01/07/19 16:50 99.1 88 16 120/68 99 Room Air Intake and Output 01/07/19 01/08/19 19:00 07:00 Intake Total 55 ml Balance 55 ml Intake IV Total 55 ml # Voids 2 Laboratory Tests Test 01/07/19 17:04 01/07/19 17:34 01/08/19 07:20 White Blood Count 7.7 K/UL (4.8-10.8) 7.2 K/UL (4.8-10.8) Red Blood Count 5.74 M/UL (4.70-6.10) 5.42 M/UL (4.70-6.10) Hemoglobin 15.6 G/DL (14.2-18.0) 14.9 G/DL (14.2-18.0) Hematocrit 49.4 % (42.0-52.0) 46.3 % (42.0-52.0) Mean Corpuscular Volume 86 FL (80-99) 85 FL (80-99) Mean Corpuscular Hemoglobin 27.1 PG (27.0-31.0) 27.4 PG (27.0-31.0) Mean Corpuscular Hemoglobin Concent 31.5 G/DL (32.0-36.0) L 32.1 G/DL (32.0-36.0) Red Cell Distribution Width 15.2 % (11.6-14.8) H 15.3 % (11.6-14.8) H Platelet Count 84 K/UL (150-450) L 98 K/UL (150-450) L Mean Platelet Volume 10.5 FL (6.5-10.1) H 10.9 FL (6.5-10.1) H Neutrophils (%) (Auto) % (45.0-75.0) % (45.0-75.0) Lymphocytes (%) (Auto) % (20.0-45.0) % (20.0-45.0) Monocytes (%) (Auto) % (1.0-10.0) % (1.0-10.0) Eosinophils (%) (Auto) % (0.0-3.0) % (0.0-3.0) Basophils (%) (Auto) % (0.0-2.0) % (0.0-2.0) Differential Total Cells Counted 100 100 Neutrophils % (Manual) 70 % (45-75) 73 % (45-75) Lymphocytes % (Manual) 23 % (20-45) 19 % (20-45) L Monocytes % (Manual) 6 % (1-10) 8 % (1-10) Eosinophils % (Manual) 0 % (0-3) 0 % (0-3) Basophils % (Manual) 0 % (0-2) 0 % (0-2) Band Neutrophils 1 % (0-8) 0 % (0-8) Platelet Estimate Decreased L Decreased L Platelet Morphology Normal Normal Polychromasia 1+ Anisocytosis 1+ Prothrombin Time 11.8 SEC (9.30-11.50) H 11.6 SEC (9.30-11.50) H Prothromb Time International Ratio 1.1 (0.9-1.1) 1.1 (0.9-1.1) Activated Partial Thromboplast Time 28 SEC (23-33) 28 SEC (23-33) Sodium Level 139 MMOL/L (136-145) Potassium Level 3.8 MMOL/L (3.5-5.1) Chloride Level 106 MMOL/L (98-107) Carbon Dioxide Level 24 MMOL/L (21-32) Anion Gap 9 mmol/L (5-15) Blood Urea Nitrogen 10 mg/dL (7-18) Creatinine 0.9 MG/DL (0.55-1.30) Estimat Glomerular Filtration Rate > 60 mL/min (>60) Glucose Level 106 MG/DL (74-106) Calcium Level 9.1 MG/DL (8.5-10.1) Total Bilirubin 0.4 MG/DL (0.2-1.0) Aspartate Amino Transf (AST/SGOT) 89 U/L (15-37) H Alanine Aminotransferase (ALT/SGPT) 105 U/L (12-78) H Alkaline Phosphatase 96 U/L (46-116) Total Creatine Kinase 65 U/L (26-308) Troponin I 0.005 ng/mL (0.000-0.056) 0.000 ng/mL (0.000-0.056) Pro-B-Type Natriuretic Peptide 49 pg/mL (0-125) Total Protein 8.1 G/DL (6.4-8.2) Albumin 3.1 G/DL (3.4-5.0) L Globulin 5.0 g/dL Albumin/Globulin Ratio 0.6 (1.0-2.7) L Urine Color Yellow Urine Appearance Very cloudy Urine pH 9 (4.5-8.0) Urine Specific [place] 1.015 (1.005-1.035) Urine Protein 2+ (NEGATIVE) H Urine Glucose (UA) Negative (NEGATIVE) Urine Ketones 1+ (NEGATIVE) H Urine Blood 5+ (NEGATIVE) H Urine Nitrite Positive (NEGATIVE) H Urine Bilirubin Negative (NEGATIVE) Urine Urobilinogen 1 MG/DL (0.0-1.0) H Urine Leukocyte Esterase 3+ (NEGATIVE) H Urine RBC 5-10 /HPF (0 - 0) H Urine WBC 15-20 /HPF (0 - 0) H Urine Squamous Epithelial Cells None /LPF (NONE/OCC) Urine Amorphous Sediment Many /LPF (NONE) H Urine Bacteria Many /HPF (NONE) H Urine Opiates Screen Negative (NEGATIVE) Urine Barbiturates Screen Negative (NEGATIVE) Phencyclidine (PCP) Screen Negative (NEGATIVE) Urine Amphetamines Screen Negative (NEGATIVE) Urine Benzodiazepines Screen Negative (NEGATIVE) Urine Cocaine Screen Negative (NEGATIVE) Urine Marijuana (THC) Screen Negative (NEGATIVE) Red Blood Cell Morphology Normal C-Reactive Protein, Quantitative 1.5 mg/dL (0.00-0.90) H Triglycerides Level 53 MG/DL (30-150) Cholesterol Level 94 MG/DL (< 200) LDL Cholesterol 66 mg/dL (<100) HDL Cholesterol 22 MG/DL (40-60) L Cholesterol/HDL Ratio 4.3 (3.3-4.4) Thyroid Stimulating Hormone (TSH) 2.727 uiU/mL (0.358-3.740) Microbiology Date/Time Source Procedure Growth Status 01/07/19 17:34 Urine,Clean Catch Urine Culture - Preliminary Gram Negative Jb Resulted Height (Feet): 5 Height (Inches): 8.00 Weight (Pounds): 180 Medications Current Medications Medications (Trade) Dose Ordered Sig/Hugo Route PRN Reason Start Time Stop Time Status Last Admin Dose Admin Albuterol/ Ipratropium (Albuterol/ Ipratropium) 3 ml EVERY 4 HOURS PRN HHN Shortness of Breath 01/07/19 22:15 01/12/19 22:14 Aripiprazole (Abilify) 5 mg BEDTIME ORAL 01/08/19 21:00 02/07/19 20:59 Atorvastatin Calcium (Lipitor) 20 mg BEDTIME ORAL 01/08/19 21:00 02/07/19 20:59 Carisoprodol (Soma) 350 mg QID ORAL 01/08/19 09:00 02/07/19 08:59 01/08/19 13:20 Clopidogrel Bisulfate (Plavix) 75 mg DAILY ORAL 01/08/19 09:00 02/07/19 08:59 01/08/19 08:53 Diltiazem HCl (Cardizem) 10 mg EVERY HOUR PRN IV heart rate more than 120, 01/07/19 22:15 02/06/19 22:14 Enalaprilat (Vasotec) 2.5 mg EVERY 6 HOURS PRN IV sbp more than 160 01/07/19 22:15 02/06/19 22:14 Finasteride (Proscar) 5 mg DAILY ORAL 01/08/19 09:00 02/07/19 08:59 01/08/19 08:53 Gabapentin (Neurontin) 600 mg THREE TIMES A DAY ORAL 01/08/19 09:00 02/07/19 08:59 01/08/19 13:20 Metoprolol Tartrate (Lopressor) 25 mg EVERY 12 HOURS ORAL 01/08/19 09:00 02/07/19 08:59 01/08/19 08:55 Morphine Sulfate (Morphine Sulfate) 2 mg EVERY 4 HOURS PRN IVP severe Pain (Pain Scale 7-10) 01/07/19 22:15 01/14/19 22:14 01/08/19 13:21 Nitroglycerin (Ntg) 0.4 mg Q5M PRN SL Prn Chest Pain 01/07/19 22:15 02/06/19 22:14 Ondansetron HCl (Zofran) 4 mg Q6H PRN IVP Nausea & Vomiting 01/07/19 22:15 02/06/19 22:14 Polyethylene Glycol (Miralax) 17 gm DAILYPRN PRN ORAL Constipation 01/07/19 22:15 02/06/19 22:14 Sertraline HCl (Zoloft) 50 mg DAILY ORAL 01/08/19 09:00 02/07/19 08:59 01/08/19 08:53 Tamsulosin HCl (Flomax) 0.4 mg BID ORAL 01/08/19 09:00 02/07/19 08:59 01/08/19 08:55 Temazepam (Restoril) 15 mg HSPRN PRN ORAL Insomnia 01/07/19 22:15 01/14/19 22:14 Trazodone HCl (Desyrel) 50 mg BEDTIME ORAL 01/08/19 21:00 02/07/19 20:59 Assessment/Plan Assessment/Plan ASSESSMENT chest pain r/o ACS -likely atypcial CP UTI in setting of prior pyelonephritis elevated LFT probably due to hx of hep C and cirrhosis Liver cirrhosis hepatitis C Cerebrovascular disease with hx of CVA with LS weakness CAD psychosis PLAN OF CARE ' O2 prn titrate to keep sat above 92% pulm toilet prn serial troponin prior ECHO with pEF cardio follows Plavix and statin ( allergic to ASA) beta blockage Nitro prn DVT prophylaxis s/p empiric abx x 1 ID follows , recommended to keep off abx, given no fever, no leukocytosis continue Proscar monitor LFT, baseline LFT elevated prior abd US and CT A/P just done on previous admission were unremarkable psych meds as per psych recs supportive care case discussed and evaluated by supervising physician case discussed and evaluated by supervising physician Sharlene Chicas NP Jan 08, 2019 14:16
[2019-01-08 16:00] VITALS: BP 121/72
--- NOTE | 2019-01-08 16:30 | Consultation ---
DATE OF CONSULTATION: 01/08/2019 CARIOLOGY CONSULTATION CONSULTING PHYSICIAN: Tu Hughes M.D. REFERRING PHYSICIAN: Roberto Georges D.O. REASON FOR CONSULTATION: Management of chest pain. HISTORY OF PRESENT ILLNESS: The patient is a very unfortunate 53-year-old gentleman, who presents to the hospital with complaints of chest pain. Described as pressure-like pain in the left precordial area that lasts normally about two hours, has an intermittent nature with radiation to his left arm. It occurs out of the blue and relieves when he takes his medication. The patient is nonambulatory due to prior CVA and left hemiparesis. He is a resident of detention facility and basically bedbound. He states that at times it is pleuritic. On arrival to the emergency department, initial blood pressure was 120/68 and heart rate of 88. A 12-lead electrocardiogram showed sinus rhythm with no acute ST and T-wave abnormalities. There was some questionable QS waves in leads II, III and aVF suggestive of possible old inferior wall infarct. The patient was recently discharged from this facility and had 2D echocardiography on December 31, which revealed normal LV systolic function with LVEF approximately 55% to 60%, mild LVH, no wall motion abnormalities, moderate aortic regurgitation and right ventricular systolic pressure measured at 21 mmHg. The patient was admitted to telemetry for evaluation and management. Cardiology consultation was made at request of Dr. Georges. PAST MEDICAL HISTORY: 1. CVA with left hemiparesis. 2. Rheumatic fever. 3. Hyperlipidemia. 4. GERD. 5. Renal calculi. 6. UTI. 7. BPH. ALLERGIES: To acetaminophen, aspirin, ketorolac, and NSAIDs. MEDICATIONS: List of medications, Abilify 5 mg p.o. at bedtime, atorvastatin 20 mg p.o. at bedtime, bisacodyl 10 mg rectal p.r.n. constipation, Soma 350 q.i.d., Plavix 75 mg p.o. daily, Cranberry 900 mg twice daily, Colace 100 mg p.o. daily, famotidine 20 mg p.o. before meals, Proscar 5 mg p.o. daily, folic acid 1 mg p.o. daily, gabapentin 600 mg p.o. three times a day, lactulose 30 mL p.o. daily, milk of magnesia 30 mL p.o. at bedtime p.r.n. constipation, metoprolol 25 mg q.12 hours, multivitamin one tablet p.o. daily, Fleet enema 133 rectal every other day p.r.n. constipation, Zoloft 50 mg p.o. daily, tamsulosin 0.4 mg p.o. twice daily, tramadol 50 mg q.8 h. p.r.n. severe pain, and trazodone 50 mg p.o. at bedtime. FAMILY HISTORY: No premature coronary artery disease in the first-degree relatives. PAST SURGICAL HISTORY: None. REVIEW OF SYSTEMS: HEENT: Denies any headache, diplopia, or blurred vision. CONSTITUTIONAL: Denies any fever, chills, night sweats, or weight loss. CARDIOVASCULAR: Pleuritic chest pain in the left precordial area with radiation to the left arm, intermittent, each time two hours with no associated shortness of breath, PND, orthopnea, or leg swelling. PULMONARY: Denies any cough, hemoptysis, or wheezing. GASTROINTESTINAL: Denies any nausea, vomiting, diarrhea, constipation, abdominal pain, or GI bleed. GENITOURINARY: Denies any hematuria, dysuria, or incontinence. NEUROLOGY: Left-sided motor weakness due to prior stroke. MUSCULOSKELETAL: Nonambulatory. PHYSICAL EXAMINATION: VITAL SIGNS: Blood pressure at the time of arrival to the hospital was 120/68, pulse of 88, respirations of 16, O2 saturation 99% on room air, and temperature 99.1 degrees Fahrenheit. GENERAL: The patient is a very unfortunate 53-year-old gentleman, who is in no apparent respiratory distress. HEENT: Atraumatic and normocephalic. Anicteric. Pupils are equal, round, and reactive to light and accommodation. Extraocular muscles intact. NECK: JVP less than 5 cm. No carotid bruit. Carotid upstrokes 2+ bilaterally. CARDIOVASCULAR: Normal S1, S2. Regular rate and rhythm. No murmurs, gallops, or rubs. PMI is at fourth intercostal space in the midclavicular line. LUNGS: Clear to auscultation bilaterally. ABDOMEN: Soft, nontender, and nondistended. No hepatosplenomegaly. Positive bowel sounds. EXTREMITIES: No evidence of edema, clubbing, or cyanosis. There is diminished motor function in left upper and lower limbs. LABORATORY FINDINGS: WBC 7.7, hemoglobin 15.6, hematocrit 49.4, and platelet count is 84. Sodium is 139, potassium 3.8, chloride 106, bicarbonate 24, BUN of 10, creatinine 0.9, glucose is 106, and calcium 9.1. AST and ALT 89 and 105 respectively. ProBNP was 49. Troponin I x2 negative. LDL 66, HDL 22, total cholesterol 94, and triglycerides of 53. The patient had a myocardial perfusion imaging study done on September 13, which showed no evidence of myocardial ischemia with LVEF at that time 73%. ASSESSMENT AND PLAN: The patient is a very unfortunate 53-year-old gentleman, seen in Cardiology consultation at request of Dr. Georges. 1. Most likely noncardiac chest pain. The patient has had full cardiac workup ever since August of last year including myocardial perfusion imaging study, which showed no evidence of ischemia, 2D echocardiography, which showed normal LV systolic and diastolic function with no wall motion abnormalities and LVEF of approximately 65%. A 12-lead electrocardiogram does not show any acute ischemic features. Acute myocardial function is also ruled out by two negative troponin I levels. The chest pain is most likely either due to pleurisy and can be dealt with pain management as well or could be secondary to musculoskeletal. I cannot exclude psychological effect the reason to this chest pain is either. 2. History of CVA with left hemiparesis. I would emphasize on aspirin and statins. 3. History of hypertension. 4. I would continue metoprolol. Blood pressure appears to be within normal limits. I would like to thank, Dr. Georges, for allowing me to participate in the care of this patient. Tu Hughes M.D. DR: ELIJAH JOB#: [id number] CC:
--- NOTE | 2019-01-08 19:25 | NUR ---
NURSE NOTES: Received report from ADELE Chavarria. Patient awake, alert and verbally responsive. No SOB, no acute distress, pain medication just given at 1536 per Deon. IV site on R AC #22, patent and intact. Pt requesting for condom catheter. Bed at lowest position, call light within reach. Will continue plan of care.
[2019-01-08 20:00] VITALS: BP 116/62
[2019-01-08] MEDS ORDERED: TraZODone 50mg tab ORAL SCH (21:00)
--- NOTE | 2019-01-08 23:43 | Cardiology Progress Note ---
Assessment/Plan Assessment/Plan 1. Most likely noncardiac chest pain. The patient has had full cardiac workup in August of last year including myocardial perfusion maging study, which showed no evidence of ischemia as well as 2D echocardiography, which showed normal LV systolic and diastolic function with no wall motion abnormalities and LVEF of approximately 65%. 12-lead electrocardiogram in this admission does not show any acute ischemic features. Acute myocardial function is also ruled out by two negative troponin I levels. The chest pain is most likely either due to pleurisy, musculoskeletal or psychological. 2. History of CVA with left hemiparesis, consider aspirin and statins. 3. History of hypertension, continue metoprolol. Subjective Subjective Sinus rhythm at rate of 74. Objective Last 24 Hour Vital Signs Date Time Temp Pulse Resp B/P (MAP) Pulse Ox O2 Delivery O2 Flow Rate FiO2 01/08/19 21:00 Room Air 01/08/19 20:55 74 116/62 01/08/19 20:30 74 20 Room Air 21 01/08/19 20:00 98.7 74 18 116/62 (80) 93 01/08/19 20:00 74 01/08/19 16:00 98.1 70 20 121/72 (88) 93 01/08/19 12:00 97.9 81 20 136/71 (92) 93 01/08/19 12:00 76 01/08/19 09:00 Room Air 01/08/19 08:55 73 118/69 01/08/19 08:00 84 20 134/72 (92) 93 01/08/19 08:00 78 01/08/19 04:00 73 01/08/19 04:00 98.2 74 20 118/69 (85) 95 01/08/19 00:00 81 01/08/19 00:00 97.0 80 18 124/69 (87) 95 Intake and Output 01/07/19 01/08/19 19:00 07:00 Intake Total 55 ml Balance 55 ml Intake IV Total 55 ml # Voids 2 Laboratory Tests Test 01/08/19 07:20 01/08/19 22:15 White Blood Count 7.2 K/UL (4.8-10.8) Red Blood Count 5.42 M/UL (4.70-6.10) Hemoglobin 14.9 G/DL (14.2-18.0) Hematocrit 46.3 % (42.0-52.0) Mean Corpuscular Volume 85 FL (80-99) Mean Corpuscular Hemoglobin 27.4 PG (27.0-31.0) Mean Corpuscular Hemoglobin Concent 32.1 G/DL (32.0-36.0) Red Cell Distribution Width 15.3 % (11.6-14.8) H Platelet Count 98 K/UL (150-450) L Mean Platelet Volume 10.9 FL (6.5-10.1) H Neutrophils (%) (Auto) % (45.0-75.0) Lymphocytes (%) (Auto) % (20.0-45.0) Monocytes (%) (Auto) % (1.0-10.0) Eosinophils (%) (Auto) % (0.0-3.0) Basophils (%) (Auto) % (0.0-2.0) Differential Total Cells Counted 100 Neutrophils % (Manual) 73 % (45-75) Lymphocytes % (Manual) 19 % (20-45) L Monocytes % (Manual) 8 % (1-10) Eosinophils % (Manual) 0 % (0-3) Basophils % (Manual) 0 % (0-2) Band Neutrophils 0 % (0-8) Platelet Estimate Decreased L Platelet Morphology Normal Red Blood Cell Morphology Normal Prothrombin Time 11.6 SEC (9.30-11.50) H Prothromb Time International Ratio 1.1 (0.9-1.1) Activated Partial Thromboplast Time 28 SEC (23-33) Troponin I 0.000 ng/mL (0.000-0.056) 0.000 ng/mL (0.000-0.056) C-Reactive Protein, Quantitative 1.5 mg/dL (0.00-0.90) H Triglycerides Level 53 MG/DL (30-150) Cholesterol Level 94 MG/DL (< 200) LDL Cholesterol 66 mg/dL (<100) HDL Cholesterol 22 MG/DL (40-60) L Cholesterol/HDL Ratio 4.3 (3.3-4.4) Thyroid Stimulating Hormone (TSH) 2.727 uiU/mL (0.358-3.740) Microbiology Date/Time Source Procedure Growth Status 01/07/19 17:34 Urine,Clean Catch Urine Culture - Preliminary Gram Negative Jb Resulted Objective HEENT: Atraumatic and normocephalic. Anicteric. Pupils are equal, round, and reactive to light and accommodation. Extraocular muscles intact. NECK: JVP less than 5 cm. No carotid bruit. Carotid upstrokes 2+ bilaterally. CARDIOVASCULAR: Normal S1, S2. Regular rate and rhythm. No murmurs, gallops, or rubs. PMI is at fourth intercostal space in the midclavicular line. LUNGS: Clear to auscultation bilaterally. ABDOMEN: Soft, nontender, and nondistended. No hepatosplenomegaly. Positive bowel sounds. EXTREMITIES: No evidence of edema, clubbing, or cyanosis. There is diminished motor function in left upper and lower limbs. Tu Hughes MD Jan 08, 2019 23:43
[2019-01-09] VITALS (7 sets, daily range): BP systolic 109–129; BP diastolic 54–70
[2019-01-09] MEDS: Morphine Sulfate 2mg/ml Inj(IV/IM USE ONLY) IVP PRN ×3 (01:25→11:17)
--- NOTE | 2019-01-09 03:10 | NUR ---
HAND-OFF: Report given to ADELE Weems. Patient asleep, breathing even and unlabored, no s/sx of pain nor any discomfort at this time. remains sinus rhythm at media monitor. Endorsed plan of care.
--- NOTE | 2019-01-09 03:11 | NUR ---
NURSE NOTES: Received pt from ADELE Grant. Pt asleep. Bed in lowest position. Call light within reach. Will continue to monitor.
--- NOTE | 2019-01-09 07:04 | NUR ---
HAND-OFF: Report given to ADELE Chavarria. Pt stable.
[2019-01-09 07:35] LABS: HEMATOCRIT 45.1 % (42.0-52.0); HEMOGLOBIN 14.5 G/DL (14.2-18.0); MEAN CORPUSCULAR VOLUME 86 FL (80-99); PLATELET COUNT 87 K/UL (150-450); RED BLOOD COUNT 5.25 M/UL (4.70-6.10); RED CELL DISTRIBUTION WIDTH 15.3 % (11.6-14.8); WHITE BLOOD COUNT 5.6 K/UL (4.8-10.8)
[2019-01-09 07:52] LABS: ANION GAP 7 mmol/L (5-15); BLOOD UREA NITROGEN 11 mg/dL (7-18); CALCIUM 8.9 MG/DL (8.5-10.1); CARBON DIOXIDE 27 MMOL/L (21-32); CHLORIDE 106 MMOL/L (98-107); SODIUM 140 MMOL/L (136-145)
--- NOTE | 2019-01-09 07:56 | General Progress Note ---
Assessment/Plan Problem List: (1) Chest pain ICD Codes: R07.9 - Chest pain, unspecified SNOMED: 79940111 Qualifiers: Qualified Codes: R07.9 - Chest pain, unspecified (2) Psychosis ICD Codes: F29 - Unspecified psychosis not due to a substance or known physiological condition SNOMED: 10013244 (3) History of CVA (cerebrovascular accident) ICD Codes: Z86.73 - Personal history of transient ischemic attack (TIA), and cerebral infarction without residual deficits SNOMED: 154097149 (4) Thrombocytopenia ICD Codes: D69.6 - Thrombocytopenia, unspecified SNOMED: 634805131 (5) Diarrhea ICD Codes: R19.7 - Diarrhea, unspecified SNOMED: 99059800 (6) Cirrhosis ICD Codes: K74.60 - Unspecified cirrhosis of liver SNOMED: 17841985 (7) Hepatitis C ICD Codes: B19.20 - Unspecified viral hepatitis C without hepatic coma SNOMED: 98857104 (8) UTI (urinary tract infection) ICD Codes: N39.0 - Urinary tract infection, site not specified SNOMED: 88710860 Qualifiers: Qualified Codes: N39.0 - Urinary tract infection, site not specified Status: unchanged Assessment/Plan pt diet abx cardio f/u cbc bmp am Subjective Constitutional: Reports: weakness Allergies: Coded Allergies: ACETAMINOPHEN (Verified Allergy, Unknown, 08/28/18) ASPIRIN (Verified Allergy, Unknown, 08/28/18) KETOROLAC (Verified Allergy, Unknown, 08/28/18) NSAIDS (NON-STEROIDAL ANTI-INFLAMMA (Verified Allergy, Unknown, 09/09/18) All Systems: reviewed and negative except above Subjective sl chest pain Objective Last 24 Hour Vital Signs Date Time Temp Pulse Resp B/P (MAP) Pulse Ox O2 Delivery O2 Flow Rate FiO2 01/09/19 04:00 74 01/09/19 04:00 98.1 84 18 123/64 (83) 94 01/09/19 00:00 69 01/09/19 00:00 98.5 69 18 113/54 (73) 94 01/08/19 21:00 Room Air 01/08/19 20:55 74 116/62 01/08/19 20:30 74 20 Room Air 21 01/08/19 20:00 98.7 74 18 116/62 (80) 93 01/08/19 20:00 74 01/08/19 16:00 98.1 70 20 121/72 (88) 93 01/08/19 12:00 97.9 81 20 136/71 (92) 93 01/08/19 12:00 76 01/08/19 09:00 Room Air 01/08/19 08:55 73 118/69 01/08/19 08:00 84 20 134/72 (92) 93 01/08/19 08:00 78 Intake and Output 01/08/19 01/09/19 18:59 06:59 # Voids 4 Laboratory Tests 01/08/19 22:15: Troponin I 0.000 01/09/19 07:06: White Blood Count [Pending], Red Blood Count [Pending], Hemoglobin [Pending], Hematocrit [Pending], Mean Corpuscular Volume [Pending], Mean Corpuscular Hemoglobin [Pending], Mean Corpuscular Hemoglobin Concent [Pending], Red Cell Distribution Width [Pending], Platelet Count [Pending], Mean Platelet Volume [ Pending], Neutrophils (%) (Auto) [Pending], Lymphocytes (%) (Auto) [Pending], Monocytes (%) (Auto) [Pending], Eosinophils (%) (Auto) [Pending], Basophils (%) (Auto) [Pending], Sodium Level [Pending], Potassium Level [Pending], Chloride Level [Pending], Carbon Dioxide Level [Pending], Blood Urea Nitrogen [Pending], Creatinine [Pending], Estimat Glomerular Filtration Rate [Pending], Glucose Level [Pending], Calcium Level [Pending] Height (Feet): 5 Height (Inches): 8.00 Weight (Pounds): 180 General Appearance: lethargic EENT: normal ENT inspection Neck: normal alignment Cardiovascular: normal peripheral pulses, normal rate, regular rhythm Respiratory/Chest: chest wall non-tender, lungs clear, normal breath sounds Abdomen: normal bowel sounds, non tender, soft Extremities: normal inspection Edema: no edema noted Arm (L), no edema noted Arm (R), no edema noted Leg (L), no edema noted Leg (R), no edema noted Pedal (L), no edema noted Pedal (R), no edema noted Generalized Neurologic: motor weakness Skin: normal pigmentation, warm/dry Roberto Georges DO Jan 09, 2019 07:55
--- NOTE | 2019-01-09 08:00 | NUR ---
NURSE NOTES: Pt asleep in bed, breathing easily on room air, awoke to soft voice, denies SOB and denies pain at this time. Vital signs stable with SR at 78 on monitor. IV access right a/c flushed with 10 ml NS and lock. Condom cath in place, draining clear yellow urine into collection bag at foot of bed. Bed left in low position, side rails up x 3 and call light left near pt's hand.
--- NOTE | 2019-01-09 09:15 | Pulmonology Progress Note ---
Assessment/Plan Assessment/Plan ASSESSMENT noncardiac chest pain , likely psychological pyuria/bacteriuria-asymptomatic hx of prior pyelonephritis elevated LFT probably due to hx of hep C and cirrhosis Liver cirrhosis hepatitis C Cerebrovascular disease with hx of CVA with LS weakness CAD psychosis PLAN OF CARE tele O2 prn titrate to keep sat above 92% pulm toilet prn serial troponin negative, ECG and tele no acute ischemic changes, thus ruled out for acute Mi prior ECHO with pEF cardio follows Plavix and statin ( allergic to ASA) beta blockage Nitro prn chest pain noncardiac, likely psychological given hx of psychosis and major depression ( no evidence fo pleurisy, no evidence of MS origin of CP) DVT prophylaxis urine cx + Proteus ID follows , recommended to keep off abx, given no fever, no leukocytosis continue Proscar monitor LFT, baseline LFT elevated prior abd US and CT A/P just done on previous admission were unremarkable psych meds as per psych recs supportive care can be transferred to [place] if OK with cardio case discussed and evaluated by supervising physician Subjective Allergies: Coded Allergies: ACETAMINOPHEN (Verified Allergy, Unknown, 08/28/18) ASPIRIN (Verified Allergy, Unknown, 08/28/18) KETOROLAC (Verified Allergy, Unknown, 08/28/18) NSAIDS (NON-STEROIDAL ANTI-INFLAMMA (Verified Allergy, Unknown, 09/09/18) Subjective no signs of resp distress pulse ox stable on RA Objective Last 24 Hour Vital Signs Date Time Temp Pulse Resp B/P (MAP) Pulse Ox O2 Delivery O2 Flow Rate FiO2 01/09/19 04:00 74 01/09/19 04:00 98.1 84 18 123/64 (83) 94 01/09/19 00:00 69 01/09/19 00:00 98.5 69 18 113/54 (73) 94 01/08/19 21:00 Room Air 01/08/19 20:55 74 116/62 01/08/19 20:30 74 20 Room Air 21 01/08/19 20:00 98.7 74 18 116/62 (80) 93 01/08/19 20:00 74 01/08/19 16:00 98.1 70 20 121/72 (88) 93 01/08/19 12:00 97.9 81 20 136/71 (92) 93 01/08/19 12:00 76 Intake and Output 01/08/19 01/09/19 18:59 06:59 # Voids 4 Objective General Appearance: no apparent distress, alert - awake, responsive, flat affect Lines, tubes and drains: peripheral HEENT: normocephalic, atraumatic, anicteric, mucous membranes moist Neck: non-tender, normal alignment, supple Respiratory/Chest: lungs clear, no respiratory distress, no accessory muscle use Abdomen: normal bowel sounds, non tender, soft Extremities: no calf tenderness, other - LS weakness Skin Exam: warm/dry Neurologic: abnormal gait, alert, oriented x 3, responsive, pronator drift - LS weakness Musculoskeletal: atrophy - BLE Microbiology Date/Time Source Procedure Growth Status 01/07/19 17:34 Urine,Clean Catch Urine Culture - Final Proteus Mirabilis Complete Laboratory Tests 01/08/19 22:15: Troponin I 0.000 01/09/19 07:06: White Blood Count 5.6, Red Blood Count 5.25, Hemoglobin 14.5, Hematocrit 45.1, Mean Corpuscular Volume 86, Mean Corpuscular Hemoglobin 27.6, Mean Corpuscular Hemoglobin Concent 32.2, Red Cell Distribution Width 15.3H, Platelet Count 87L, Mean Platelet Volume 10.6H, Neutrophils (%) (Auto) , Lymphocytes (%) (Auto) , Monocytes (%) (Auto) , Eosinophils (%) (Auto) , Basophils (%) (Auto) , Differential Total Cells Counted 100, Neutrophils % (Manual) 56, Lymphocytes % ( Manual) 30, Monocytes % (Manual) 10, Eosinophils % (Manual) 4H, Basophils % ( Manual) 0, Band Neutrophils 0, Platelet Estimate DecreasedL, Platelet Morphology Normal, Red Blood Cell Morphology Normal, Anisocytosis , Sodium Level 140, Potassium Level 4.0, Chloride Level 106, Carbon Dioxide Level 27, Anion Gap 7, Blood Urea Nitrogen 11, Creatinine 1.0, Estimat Glomerular Filtration Rate > 60, Glucose Level 96, Calcium Level 8.9 Current Medications Medications (Trade) Dose Ordered Sig/Hugo Route PRN Reason Start Time Stop Time Status Last Admin Dose Admin Albuterol/ Ipratropium (Albuterol/ Ipratropium) 3 ml EVERY 4 HOURS PRN HHN Shortness of Breath 01/07/19 22:15 01/12/19 22:14 Aripiprazole (Abilify) 5 mg BEDTIME ORAL 01/08/19 21:00 02/07/19 20:59 01/08/19 20:55 Atorvastatin Calcium (Lipitor) 20 mg BEDTIME ORAL 01/08/19 21:00 02/07/19 20:59 01/08/19 20:56 Carisoprodol (Soma) 350 mg QID ORAL 01/08/19 09:00 02/07/19 08:59 01/08/19 20:56 Clopidogrel Bisulfate (Plavix) 75 mg DAILY ORAL 01/08/19 09:00 02/07/19 08:59 01/08/19 08:53 Diltiazem HCl (Cardizem) 10 mg EVERY HOUR PRN IV heart rate more than 120, 01/07/19 22:15 02/06/19 22:14 Enalaprilat (Vasotec) 2.5 mg EVERY 6 HOURS PRN IV sbp more than 160 01/07/19 22:15 02/06/19 22:14 Finasteride (Proscar) 5 mg DAILY ORAL 01/08/19 09:00 02/07/19 08:59 01/08/19 08:53 Gabapentin (Neurontin) 600 mg THREE TIMES A DAY ORAL 01/08/19 09:00 02/07/19 08:59 01/08/19 17:35 Metoprolol Tartrate (Lopressor) 25 mg EVERY 12 HOURS ORAL 01/08/19 09:00 02/07/19 08:59 01/08/19 20:55 Morphine Sulfate (Morphine Sulfate) 2 mg EVERY 4 HOURS PRN IVP severe Pain (Pain Scale 7-10) 01/07/19 22:15 01/14/19 22:14 01/09/19 07:16 Nitroglycerin (Ntg) 0.4 mg Q5M PRN SL Prn Chest Pain 01/07/19 22:15 02/06/19 22:14 Ondansetron HCl (Zofran) 4 mg Q6H PRN IVP Nausea & Vomiting 01/07/19 22:15 02/06/19 22:14 01/08/19 17:34 Polyethylene Glycol (Miralax) 17 gm DAILYPRN PRN ORAL Constipation 01/07/19 22:15 02/06/19 22:14 Sertraline HCl (Zoloft) 50 mg DAILY ORAL 01/08/19 09:00 02/07/19 08:59 01/08/19 08:53 Tamsulosin HCl (Flomax) 0.4 mg BID ORAL 01/08/19 09:00 02/07/19 08:59 01/08/19 17:35 Temazepam (Restoril) 15 mg HSPRN PRN ORAL Insomnia 01/07/19 22:15 01/14/19 22:14 Trazodone HCl (Desyrel) 50 mg BEDTIME ORAL 01/08/19 21:00 02/07/19 20:59 01/08/19 20:56 Sharlene Chicas [employer]IAN Jan 09, 2019 09:15
[2019-01-09] MEDS: Metoprolol 25mg tab ORAL SCH ×2 (09:19→21:47)
[2019-01-09] MEDS: Tamsulosin 0.4mg cap ORAL SCH ×2 (09:19→17:44)
[2019-01-09] MEDS: Sertraline 50mg tab ORAL SCH (09:19)
--- NOTE | 2019-01-09 11:24 | NUR ---
CASE MANAGEMENT: REVIEW SI: CHEST PAIN . T 98.1 HR 84 RR 20 BP 113/54 SAT 94% ROOM AIR PLAT CT 87 IS: PLAVIX PO QD LOPRESSOR PO Q12HR MORPHINE IV Q4HR PRN TELEMETRY UNIT STATUS DCP: PATIENT IS FROM [facility]
--- NOTE | 2019-01-09 13:40 | NUR ---
HAND-OFF: Report given to DEV Monet. Pt transfer to [facility]-, with chart,labels and all posessions, breathing easily on room air, denies SOB. Vital signs stable with SR 1st deg HB at 76 on monitor. Endorsed that pt is requesting condom cath.
[2019-01-09] MEDS ORDERED: Nitroglycerin Subl 0.4mg tab SL PRN (13:45)
[2019-01-09] MEDS ORDERED: dilTIAZem HCl 25mg/5ml Inj IV PRN (14:00)
[2019-01-09] MEDS ORDERED: Miralax 17gm pkt ORAL PRN (14:00)
--- NOTE | 2019-01-09 14:14 | NUR ---
NURSE NOTES: received patient A/A/Ox4 from tele. No acute resp distress noted. NO c/o pain/discomfort. no personal belongings noted. skin is intact. bed is in lowest position. siderails are upx3, call light is within reach. will cont to monitor.
--- NOTE | 2019-01-09 14:23 | NUR ---
PT Note Patient is at baseline level of function. No PT services recommended at this time.
[2019-01-09] MEDS: Morphine Sulfate 4mg/ml Inj (IV USE ONLY) IVP PRN ×2 (16:16→20:28)
[2019-01-09] MEDS ORDERED: Morphine Sulfate 2mg/ml Inj(IV/IM USE ONLY) IVP PRN (17:00)
[2019-01-09] MEDS ORDERED: Albuterol/Ipratropium 3ml neb HHN PRN (17:00)
[2019-01-09] MEDS ORDERED: Enalaprilat 2.5mg/2ml Inj IV PRN (18:00)
--- NOTE | 2019-01-09 19:10 | NUR ---
HAND-OFF: Report given to Amanda.
--- NOTE | 2019-01-09 19:30 | NUR ---
NURSE NOTES: Received patient in bed. On RA, no SOB, no acute distress. IV intact patent on RAC. Condom cath draining yellowish urine. Bed in lowest position, locked, alarms on. Call light in reach.
[2019-01-09] MEDS: Atorvastatin 20mg tab ORAL SCH (20:27)
[2019-01-09] MEDS ORDERED: TraZODone 50mg tab ORAL SCH (21:00)
[2019-01-10] VITALS: BP 113/64
[2019-01-10] MEDS: Morphine Sulfate 4mg/ml Inj (IV USE ONLY) IVP PRN ×5 (00:45→19:45)
[2019-01-10 04:00] VITALS: BP 117/64
[2019-01-10 07:34] LABS: HEMATOCRIT 44.1 % (42.0-52.0); HEMOGLOBIN 13.9 G/DL (14.2-18.0); MEAN CORPUSCULAR VOLUME 87 FL (80-99); PLATELET COUNT 78 K/UL (150-450); RED BLOOD COUNT 5.08 M/UL (4.70-6.10); RED CELL DISTRIBUTION WIDTH 14.9 % (11.6-14.8); WHITE BLOOD COUNT 4.9 K/UL (4.8-10.8)
--- NOTE | 2019-01-10 07:45 | Consultation ---
DATE OF CONSULTATION: 01/10/2019 HISTORY OF PRESENT ILLNESS: The patient is a 57-year-old male patient with chest pain. This patient continues to complain of anxiety and altered mental status, worsened by stress. He also complains of high levels of anxiety and irritability to sleep. daily psychiatric consultation requested. PAST MEDICAL HISTORY: The patient has a history of chest pain. SUBSTANCE ABUSE HISTORY: Denies. MEDICATIONS: Psychotropic medications on admission, the patient is currently on Zoloft 50 mg daily. He is also on Neurontin 600 mg. SUBSTANCE ABUSE HISTORY: Denies. PAIN ASSESSMENT: 0/10. DEVELOPMENTAL PROBLEMS: Denies. FAMILY PSYCH HISTORY: Denies. SOCIAL HISTORY: Financially supported by [employer] and Medicare. Lives in [facility]. PSYCHIATRIC HISTORY: Major depressive disorder, severe, recurrent without psychotic features. STRENGTHS: He is motivated to get better. He has a place to live. WEAKNESSES AND LIABILITIES: Impulsive, minimal support system. MENTAL STATUS EXAMINATION: This is a 57-year-old male. Appearance is disheveled. Attitude, irritable and agitated. Affect, guarded and restricted. Intellect poor. Mood depressed and anxious. Motor activity, psychomotor agitation. Attention span is poor. Orientation x2. Speech is low volume, slurred. Thought process, disorganized, illogical. Insight and judgment is poor. DIAGNOSES: 1. Major depression, severe, recurrent without psychotic features . 2. Medical, chest pain. 3. Psychosocial stressors, financial. 4. Functional impairment, mild. PLAN: Treat the patient with Zoloft 50 mg daily and also continue to Neurontin 300 mg three times a day, and trazodone titrate up to 150 mg at bedtime. Provide him with 20 minutes of cognitive behavioral therapy to help him identify automatic negative thoughts and help to convert negative thoughts to more positive thoughts to reduce depression, anxiety, and suicidality. Chart reviewed and discussed with staff. He was seen and assessed at bedside. Amy Benites M.D. DR: Betty JOB#: [id number] CC:
--- NOTE | 2019-01-10 07:45 | NUR ---
HAND-OFF: Report given to Sakshi ANGULO.
[2019-01-10 08:00] VITALS: BP 114/63
--- NOTE | 2019-01-10 08:00 | NUR ---
NURSE NOTES: Patient received in stable condition, resting in bed. Alert and oriented, breathing unlabored on room air. Denies SOB or pain at this time. IV site on right arm patent and intact, saline locked. Call light within reach, will continue to monitor.
[2019-01-10 08:08] LABS: ALANINE AMINOTRANSFERASE 109 U/L (12-78); ALBUMIN 2.8 G/DL (3.4-5.0); ALBUMIN/GLOBULIN RATIO 0.6 (1.0-2.7); ALKALINE PHOSPHATASE 86 U/L (46-116); ANION GAP 7 mmol/L (5-15); ASPARTATE AMINO TRANSFERASE 93 U/L (15-37); BILIRUBIN,TOTAL 0.3 MG/DL (0.2-1.0); BLOOD UREA NITROGEN 13 mg/dL (7-18); CALCIUM 8.7 MG/DL (8.5-10.1); CARBON DIOXIDE 25 MMOL/L (21-32); CHLORIDE 108 MMOL/L (98-107); CREATININE 0.9 MG/DL (0.55-1.30); POTASSIUM 3.8 MMOL/L (3.5-5.1); SODIUM 140 MMOL/L (136-145)
[2019-01-10] MEDS: Metoprolol 25mg tab ORAL SCH ×2 (08:38→20:44)
[2019-01-10] MEDS: Tamsulosin 0.4mg cap ORAL SCH ×2 (08:39→17:58)
[2019-01-10] MEDS: Sertraline 50mg tab ORAL SCH (08:39)
[2019-01-10 12:00] VITALS: BP 116/60
--- NOTE | 2019-01-10 13:42 | General Progress Note ---
Assessment/Plan Problem List: (1) Chest pain ICD Codes: R07.9 - Chest pain, unspecified SNOMED: 04997608 Qualifiers: Qualified Codes: R07.9 - Chest pain, unspecified (2) Psychosis ICD Codes: F29 - Unspecified psychosis not due to a substance or known physiological condition SNOMED: 79148240 (3) History of CVA (cerebrovascular accident) ICD Codes: Z86.73 - Personal history of transient ischemic attack (TIA), and cerebral infarction without residual deficits SNOMED: 623487256 (4) Thrombocytopenia ICD Codes: D69.6 - Thrombocytopenia, unspecified SNOMED: 869338148 (5) Diarrhea ICD Codes: R19.7 - Diarrhea, unspecified SNOMED: 05651499 (6) Cirrhosis ICD Codes: K74.60 - Unspecified cirrhosis of liver SNOMED: 66413703 (7) Hepatitis C ICD Codes: B19.20 - Unspecified viral hepatitis C without hepatic coma SNOMED: 11161373 (8) UTI (urinary tract infection) ICD Codes: N39.0 - Urinary tract infection, site not specified SNOMED: 39386617 Qualifiers: Qualified Codes: N39.0 - Urinary tract infection, site not specified Status: unchanged Assessment/Plan pt diet abx cardio f/u cbc bmp am dc plan Subjective Constitutional: Reports: weakness Allergies: Coded Allergies: ACETAMINOPHEN (Verified Allergy, Unknown, 08/28/18) ASPIRIN (Verified Allergy, Unknown, 08/28/18) KETOROLAC (Verified Allergy, Unknown, 08/28/18) NSAIDS (NON-STEROIDAL ANTI-INFLAMMA (Verified Allergy, Unknown, 09/09/18) All Systems: reviewed and negative except above Subjective sl chest pain Objective Last 24 Hour Vital Signs Date Time Temp Pulse Resp B/P (MAP) Pulse Ox O2 Delivery O2 Flow Rate FiO2 01/10/19 12:00 97.9 62 20 116/60 (78) 94 01/10/19 09:25 65 20 Room Air 21 01/10/19 09:00 Room Air 01/10/19 08:38 66 117/64 01/10/19 08:00 97.9 64 18 114/63 (80) 94 01/10/19 04:00 97.6 66 18 117/64 (81) 94 01/10/19 00:00 98.6 75 18 113/64 (80) 91 01/09/19 21:47 80 127/70 01/09/19 21:00 Room Air 01/09/19 20:00 99.1 80 20 127/70 (89) 92 01/09/19 20:00 80 20 Room Air 21 01/09/19 18:14 98.8 01/09/19 16:46 98.8 01/09/19 16:00 98.8 79 20 118/62 (80) 92 01/09/19 14:19 98.0 77 20 109/63 (78) 93 Intake and Output 01/09/19 01/10/19 18:59 06:59 Intake Total 240 ml Output Total 150 ml Balance 240 ml -150 ml Intake Oral 240 ml Output Urine Total 150 ml # Voids 1 Laboratory Tests 01/09/19 21:50: Troponin I 0.000 01/10/19 07:05: White Blood Count 4.9, Red Blood Count 5.08, Hemoglobin 13.9L, Hematocrit 44.1, Mean Corpuscular Volume 87, Mean Corpuscular Hemoglobin 27.4, Mean Corpuscular Hemoglobin Concent 31.5L, Red Cell Distribution Width 14.9H, Platelet Count 78L , Mean Platelet Volume 9.3, Neutrophils (%) (Auto) , Lymphocytes (%) (Auto) , Monocytes (%) (Auto) , Eosinophils (%) (Auto) , Basophils (%) (Auto) , Differential Total Cells Counted 100, Neutrophils % (Manual) 68, Lymphocytes % ( Manual) 23, Monocytes % (Manual) 6, Eosinophils % (Manual) 3, Basophils % ( Manual) 0, Band Neutrophils 0, Platelet Estimate DecreasedL, Platelet Morphology Normal, Red Blood Cell Morphology Normal, Anisocytosis , Sodium Level 140, Potassium Level 3.8, Chloride Level 108H, Carbon Dioxide Level 25, Anion Gap 7, Blood Urea Nitrogen 13, Creatinine 0.9, Estimat Glomerular Filtration Rate > 60, Glucose Level 100, Calcium Level 8.7, Total Bilirubin 0.3 , Aspartate Amino Transf (AST/SGOT) 93H, Alanine Aminotransferase (ALT/SGPT) 109H, Alkaline Phosphatase 86, Total Protein 7.4, Albumin 2.8L, Globulin 4.6, Albumin/Globulin Ratio 0.6L Height (Feet): 5 Height (Inches): 8.00 Weight (Pounds): 180 General Appearance: lethargic EENT: normal ENT inspection Neck: normal alignment Cardiovascular: normal peripheral pulses, normal rate, regular rhythm Respiratory/Chest: chest wall non-tender, lungs clear, normal breath sounds Abdomen: normal bowel sounds, non tender, soft Extremities: normal inspection Edema: no edema noted Arm (L), no edema noted Arm (R), no edema noted Leg (L), no edema noted Leg (R), no edema noted Pedal (L), no edema noted Pedal (R), no edema noted Generalized Neurologic: motor weakness Skin: normal pigmentation, warm/dry Roberto Georges DO Jan 10, 2019 13:42
--- NOTE | 2019-01-10 14:03 | Infectious Diseases Prog Note ---
Assessment/Plan Assessment/Plan Abx: Ceftriaxone x1 01/07 Assessment: Chest pain -CXR: No evidence of acute disease. Pyuria/bacteriuria- asymptomatic -u/a wbc 15-20, nit +, leuk +3; ucx >100K P.mirabilis (R bactrim, Cipro, levo ) Afebrile No leukocytosis Chronic LFT elevation Chronic Hep C, untreated,p robable cirrhosis -Hep C ab + VL 805K -Hep A not immune, Hep B immune and +Bc ab -HIV ab sc and VL neg psychosis HTN prostate surgery laminectomy GERD cholelithiasis duodenal diverticulum constipation BPH MDD rheumatic fever 1990 CVA 2012 with left sided weakness nephrolithiasis renal stent custodial resident Plan: -Continue to monitor off abx unless febrile and/or urinary symptoms -f/u cx -Monitor CBC/CMP, temperatures Thank you for this consultation. Will continue to follow along with you. Discussed with RN. Subjective Allergies: Coded Allergies: ACETAMINOPHEN (Verified Allergy, Unknown, 08/28/18) ASPIRIN (Verified Allergy, Unknown, 08/28/18) KETOROLAC (Verified Allergy, Unknown, 08/28/18) NSAIDS (NON-STEROIDAL ANTI-INFLAMMA (Verified Allergy, Unknown, 09/09/18) Subjective afebrile no leukocytosis off abx Objective Vital Signs Last 24 Hour Vital Signs Date Time Temp Pulse Resp B/P (MAP) Pulse Ox O2 Delivery O2 Flow Rate FiO2 01/10/19 12:00 97.9 62 20 116/60 (78) 94 01/10/19 09:25 65 20 Room Air 21 01/10/19 09:00 Room Air 01/10/19 08:38 66 117/64 01/10/19 08:00 97.9 64 18 114/63 (80) 94 01/10/19 04:00 97.6 66 18 117/64 (81) 94 01/10/19 00:00 98.6 75 18 113/64 (80) 91 01/09/19 21:47 80 127/70 01/09/19 21:00 Room Air 01/09/19 20:00 99.1 80 20 127/70 (89) 92 01/09/19 20:00 80 20 Room Air 21 01/09/19 18:14 98.8 01/09/19 16:46 98.8 01/09/19 16:00 98.8 79 20 118/62 (80) 92 01/09/19 14:19 98.0 77 20 109/63 (78) 93 Height (Feet): 5 Height (Inches): 8.00 Weight (Pounds): 180 Objective GENERAL: Calm in bed, oriented x2, in no acute distress. CARDIOVASCULAR: No murmur. LUNGS: Distant, clear. ABDOMEN: Bowel sounds positive. Nontender. Nondistended. EXTREMITIES: Show no cyanosis or edema. NEUROLOGIC: The patient moves all extremities, slightly weak. Microbiology Date/Time Source Procedure Growth Status 01/08/19 07:50 Nasal Nares MRSA Culture - Final Staphylococcus Aureus - Mrsa Complete 01/07/19 17:34 Urine,Clean Catch Urine Culture - Final Proteus Mirabilis Complete Laboratory Tests Test 01/09/19 21:50 01/10/19 07:05 Troponin I 0.000 ng/mL (0.000-0.056) White Blood Count 4.9 K/UL (4.8-10.8) Red Blood Count 5.08 M/UL (4.70-6.10) Hemoglobin 13.9 G/DL (14.2-18.0) L Hematocrit 44.1 % (42.0-52.0) Mean Corpuscular Volume 87 FL (80-99) Mean Corpuscular Hemoglobin 27.4 PG (27.0-31.0) Mean Corpuscular Hemoglobin Concent 31.5 G/DL (32.0-36.0) L Red Cell Distribution Width 14.9 % (11.6-14.8) H Platelet Count 78 K/UL (150-450) L Mean Platelet Volume 9.3 FL (6.5-10.1) Neutrophils (%) (Auto) % (45.0-75.0) Lymphocytes (%) (Auto) % (20.0-45.0) Monocytes (%) (Auto) % (1.0-10.0) Eosinophils (%) (Auto) % (0.0-3.0) Basophils (%) (Auto) % (0.0-2.0) Differential Total Cells Counted 100 Neutrophils % (Manual) 68 % (45-75) Lymphocytes % (Manual) 23 % (20-45) Monocytes % (Manual) 6 % (1-10) Eosinophils % (Manual) 3 % (0-3) Basophils % (Manual) 0 % (0-2) Band Neutrophils 0 % (0-8) Platelet Estimate Decreased L Platelet Morphology Normal Red Blood Cell Morphology Normal Anisocytosis Sodium Level 140 MMOL/L (136-145) Potassium Level 3.8 MMOL/L (3.5-5.1) Chloride Level 108 MMOL/L (98-107) H Carbon Dioxide Level 25 MMOL/L (21-32) Anion Gap 7 mmol/L (5-15) Blood Urea Nitrogen 13 mg/dL (7-18) Creatinine 0.9 MG/DL (0.55-1.30) Estimat Glomerular Filtration Rate > 60 mL/min (>60) Glucose Level 100 MG/DL (74-106) Calcium Level 8.7 MG/DL (8.5-10.1) Total Bilirubin 0.3 MG/DL (0.2-1.0) Aspartate Amino Transf (AST/SGOT) 93 U/L (15-37) H Alanine Aminotransferase (ALT/SGPT) 109 U/L (12-78) H Alkaline Phosphatase 86 U/L (46-116) Total Protein 7.4 G/DL (6.4-8.2) Albumin 2.8 G/DL (3.4-5.0) L Globulin 4.6 g/dL Albumin/Globulin Ratio 0.6 (1.0-2.7) L Current Medications Medications (Trade) Dose Ordered Sig/Hugo Route PRN Reason Start Time Stop Time Status Last Admin Dose Admin Albuterol/ Ipratropium (Albuterol/ Ipratropium) 3 ml Q4H PRN HHN Shortness of Breath 01/09/19 17:00 01/14/19 16:59 Aripiprazole (Abilify) 5 mg BEDTIME ORAL 01/09/19 21:00 02/07/19 20:59 01/09/19 20:27 Atorvastatin Calcium (Lipitor) 20 mg BEDTIME ORAL 01/09/19 21:00 02/07/19 20:59 01/09/19 20:27 Carisoprodol (Soma) 350 mg QID ORAL 01/09/19 18:00 02/07/19 08:59 01/10/19 12:03 Clopidogrel Bisulfate (Plavix) 75 mg DAILY ORAL 01/10/19 09:00 02/07/19 08:59 01/10/19 08:39 Enalaprilat (Vasotec) 2.5 mg Q6H PRN IV sbp more than 160 01/09/19 18:00 02/08/19 17:59 Finasteride (Proscar) 5 mg DAILY ORAL 01/10/19 09:00 02/07/19 08:59 01/10/19 08:38 Gabapentin (Neurontin) 600 mg THREE TIMES A DAY ORAL 01/09/19 18:00 02/07/19 08:59 01/10/19 12:03 Metoprolol Tartrate (Lopressor) 25 mg EVERY 12 HOURS ORAL 01/09/19 21:00 02/07/19 08:59 01/10/19 08:38 Morphine Sulfate (Morphine Sulfate) 4 mg Q4H PRN IVP For Pain 01/09/19 15:45 01/16/19 15:44 01/10/19 09:53 Nitroglycerin (Ntg) 0.4 mg Q5M PRN SL Prn Chest Pain 01/09/19 13:45 02/06/19 22:14 Ondansetron HCl (Zofran) 4 mg Q6H PRN IVP Nausea & Vomiting 01/09/19 16:15 02/06/19 22:14 Polyethylene Glycol (Miralax) 17 gm DAILYPRN PRN ORAL Constipation 01/09/19 14:00 02/06/19 13:59 Sertraline HCl (Zoloft) 50 mg DAILY ORAL 01/10/19 09:00 02/07/19 08:59 01/10/19 08:39 Tamsulosin HCl (Flomax) 0.4 mg BID ORAL 01/09/19 18:00 02/07/19 08:59 01/10/19 08:39 Temazepam (Restoril) 15 mg HSPRN PRN ORAL Insomnia 01/09/19 14:00 01/14/19 13:59 Trazodone HCl (Desyrel) 150 mg BEDTIME ORAL 01/10/19 21:00 02/07/19 20:59 Nesha Park M.D. Jan 10, 2019 14:03
--- NOTE | 2019-01-10 14:24 | Pulmonology Progress Note ---
Assessment/Plan Problems: (1) ACS (acute coronary syndrome) (2) CAD (coronary artery disease) (3) Nephrolithiasis (4) Cirrhosis (5) Hepatitis C (6) Intractable abdominal pain (7) Psychosis (8) History of CVA (cerebrovascular accident) Assessment/Plan symptomatic treatment f/u cardiology recommendations check electrolytes and liver enzymes pain management resume psych meds. pt/ot dc planning Subjective ROS Limited/Unobtainable: No Constitutional: Reports: no symptoms HEENT: Repors: no symptoms Respiratory: Reports: no symptoms Allergies: Coded Allergies: ACETAMINOPHEN (Verified Allergy, Unknown, 08/28/18) ASPIRIN (Verified Allergy, Unknown, 08/28/18) KETOROLAC (Verified Allergy, Unknown, 08/28/18) NSAIDS (NON-STEROIDAL ANTI-INFLAMMA (Verified Allergy, Unknown, 09/09/18) Objective Last 24 Hour Vital Signs Date Time Temp Pulse Resp B/P (MAP) Pulse Ox O2 Delivery O2 Flow Rate FiO2 01/10/19 12:00 97.9 62 20 116/60 (78) 94 01/10/19 09:25 65 20 Room Air 21 01/10/19 09:00 Room Air 01/10/19 08:38 66 117/64 01/10/19 08:00 97.9 64 18 114/63 (80) 94 01/10/19 04:00 97.6 66 18 117/64 (81) 94 01/10/19 00:00 98.6 75 18 113/64 (80) 91 01/09/19 21:47 80 127/70 01/09/19 21:00 Room Air 01/09/19 20:00 99.1 80 20 127/70 (89) 92 01/09/19 20:00 80 20 Room Air 21 01/09/19 18:14 98.8 01/09/19 16:46 98.8 01/09/19 16:00 98.8 79 20 118/62 (80) 92 Intake and Output 01/09/19 01/10/19 18:59 06:59 Intake Total 240 ml Output Total 150 ml Balance 240 ml -150 ml Intake Oral 240 ml Output Urine Total 150 ml # Voids 1 Objective General Appearance: WD/WN HEENT: normocephalic Respiratory/Chest: chest wall non-tender, lungs clear, normal breath sounds Breasts: no masses Cardiovascular: normal peripheral pulses, normal rate Abdomen: normal bowel sounds, soft, non tender Extremities: no cyanosis Skin: no rash Microbiology Date/Time Source Procedure Growth Status 01/08/19 07:50 Nasal Nares MRSA Culture - Final Staphylococcus Aureus - Mrsa Complete 01/07/19 17:34 Urine,Clean Catch Urine Culture - Final Proteus Mirabilis Complete Laboratory Tests 01/09/19 21:50: Troponin I 0.000 01/10/19 07:05: White Blood Count 4.9, Red Blood Count 5.08, Hemoglobin 13.9L, Hematocrit 44.1, Mean Corpuscular Volume 87, Mean Corpuscular Hemoglobin 27.4, Mean Corpuscular Hemoglobin Concent 31.5L, Red Cell Distribution Width 14.9H, Platelet Count 78L , Mean Platelet Volume 9.3, Neutrophils (%) (Auto) , Lymphocytes (%) (Auto) , Monocytes (%) (Auto) , Eosinophils (%) (Auto) , Basophils (%) (Auto) , Differential Total Cells Counted 100, Neutrophils % (Manual) 68, Lymphocytes % ( Manual) 23, Monocytes % (Manual) 6, Eosinophils % (Manual) 3, Basophils % ( Manual) 0, Band Neutrophils 0, Platelet Estimate DecreasedL, Platelet Morphology Normal, Red Blood Cell Morphology Normal, Anisocytosis , Sodium Level 140, Potassium Level 3.8, Chloride Level 108H, Carbon Dioxide Level 25, Anion Gap 7, Blood Urea Nitrogen 13, Creatinine 0.9, Estimat Glomerular Filtration Rate > 60, Glucose Level 100, Calcium Level 8.7, Total Bilirubin 0.3 , Aspartate Amino Transf (AST/SGOT) 93H, Alanine Aminotransferase (ALT/SGPT) 109H, Alkaline Phosphatase 86, Total Protein 7.4, Albumin 2.8L, Globulin 4.6, Albumin/Globulin Ratio 0.6L Current Medications Medications (Trade) Dose Ordered Sig/Hugo Route PRN Reason Start Time Stop Time Status Last Admin Dose Admin Albuterol/ Ipratropium (Albuterol/ Ipratropium) 3 ml Q4H PRN HHN Shortness of Breath 01/09/19 17:00 01/14/19 16:59 Aripiprazole (Abilify) 5 mg BEDTIME ORAL 01/09/19 21:00 02/07/19 20:59 01/09/19 20:27 Atorvastatin Calcium (Lipitor) 20 mg BEDTIME ORAL 01/09/19 21:00 02/07/19 20:59 01/09/19 20:27 Carisoprodol (Soma) 350 mg QID ORAL 01/09/19 18:00 02/07/19 08:59 01/10/19 12:03 Clopidogrel Bisulfate (Plavix) 75 mg DAILY ORAL 01/10/19 09:00 02/07/19 08:59 01/10/19 08:39 Enalaprilat (Vasotec) 2.5 mg Q6H PRN IV sbp more than 160 01/09/19 18:00 02/08/19 17:59 Finasteride (Proscar) 5 mg DAILY ORAL 01/10/19 09:00 02/07/19 08:59 01/10/19 08:38 Gabapentin (Neurontin) 600 mg THREE TIMES A DAY ORAL 01/09/19 18:00 02/07/19 08:59 01/10/19 12:03 Metoprolol Tartrate (Lopressor) 25 mg EVERY 12 HOURS ORAL 01/09/19 21:00 02/07/19 08:59 01/10/19 08:38 Morphine Sulfate (Morphine Sulfate) 4 mg Q4H PRN IVP For Pain 01/09/19 15:45 01/16/19 15:44 01/10/19 09:53 Nitroglycerin (Ntg) 0.4 mg Q5M PRN SL Prn Chest Pain 01/09/19 13:45 02/06/19 22:14 Ondansetron HCl (Zofran) 4 mg Q6H PRN IVP Nausea & Vomiting 01/09/19 16:15 02/06/19 22:14 Polyethylene Glycol (Miralax) 17 gm DAILYPRN PRN ORAL Constipation 01/09/19 14:00 02/06/19 13:59 Sertraline HCl (Zoloft) 50 mg DAILY ORAL 01/10/19 09:00 02/07/19 08:59 01/10/19 08:39 Tamsulosin HCl (Flomax) 0.4 mg BID ORAL 01/09/19 18:00 02/07/19 08:59 01/10/19 08:39 Temazepam (Restoril) 15 mg HSPRN PRN ORAL Insomnia 01/09/19 14:00 01/14/19 13:59 Trazodone HCl (Desyrel) 150 mg BEDTIME ORAL 01/10/19 21:00 02/07/19 20:59 Lexy Christiansen MD Jan 10, 2019 14:24
[2019-01-10 16:00] VITALS: BP 101/58
--- NOTE | 2019-01-10 19:26 | NUR ---
HAND-OFF: Report given to Eduardo ANGULO.
--- NOTE | 2019-01-10 19:45 | NUR ---
NURSE NOTES: Received patient in bed. On RA, no SOB, no acute distress. RAC IV intact, patent. Condom cath inplace running yellowish urine by gravity. Bed in lowest position, locked, alarms on. Call light in reach.
[2019-01-10 20:00] VITALS: BP 112/67
[2019-01-10] MEDS: Atorvastatin 20mg tab ORAL SCH (20:44)
[2019-01-10] MEDS ORDERED: TraZODone 50mg tab ORAL SCH (21:00)
[2019-01-11] VITALS: BP 117/51
[2019-01-11] MEDS: Morphine Sulfate 4mg/ml Inj (IV USE ONLY) IVP PRN ×5 (00:48→17:15)
[2019-01-11 04:00] VITALS: BP 122/69
[2019-01-11 07:27] LABS: HEMATOCRIT 43.6 % (42.0-52.0); HEMOGLOBIN 13.8 G/DL (14.2-18.0); MEAN CORPUSCULAR VOLUME 87 FL (80-99); PLATELET COUNT 85 K/UL (150-450); RED BLOOD COUNT 5.01 M/UL (4.70-6.10); RED CELL DISTRIBUTION WIDTH 15.2 % (11.6-14.8); WHITE BLOOD COUNT 5.2 K/UL (4.8-10.8)
--- NOTE | 2019-01-11 07:27 | NUR ---
HAND-OFF: Report given to Dhiraj ANGULO.
[2019-01-11 07:29] LABS: ANION GAP 6 mmol/L (5-15); BLOOD UREA NITROGEN 12 mg/dL (7-18); CALCIUM 8.5 MG/DL (8.5-10.1); CARBON DIOXIDE 28 MMOL/L (21-32); CHLORIDE 107 MMOL/L (98-107); CREATININE 0.9 MG/DL (0.55-1.30); POTASSIUM 3.8 MMOL/L (3.5-5.1); SODIUM 141 MMOL/L (136-145)
[2019-01-11 07:57] VITALS: BP 104/65
[2019-01-11] MEDS: Sertraline 50mg tab ORAL SCH (08:10)
[2019-01-11] MEDS: Tamsulosin 0.4mg cap ORAL SCH ×2 (08:10→17:14)
[2019-01-11] MEDS: Metoprolol 25mg tab ORAL SCH (08:11)
--- NOTE | 2019-01-11 09:40 | NUR ---
NURSE NOTES: pt awake alert, no distress. no sob. call light within reach. will monitor. bed in lowest position, locked.
[2019-01-11 12:00] VITALS: BP 122/62
--- NOTE | 2019-01-11 12:51 | General Progress Note ---
Assessment/Plan Problem List: (1) Chest pain ICD Codes: R07.9 - Chest pain, unspecified SNOMED: 14012020 Qualifiers: Qualified Codes: R07.9 - Chest pain, unspecified (2) Psychosis ICD Codes: F29 - Unspecified psychosis not due to a substance or known physiological condition SNOMED: 14440493 (3) History of CVA (cerebrovascular accident) ICD Codes: Z86.73 - Personal history of transient ischemic attack (TIA), and cerebral infarction without residual deficits SNOMED: 373643165 (4) Thrombocytopenia ICD Codes: D69.6 - Thrombocytopenia, unspecified SNOMED: 211164058 (5) Diarrhea ICD Codes: R19.7 - Diarrhea, unspecified SNOMED: 09366699 (6) Cirrhosis ICD Codes: K74.60 - Unspecified cirrhosis of liver SNOMED: 60677419 (7) Hepatitis C ICD Codes: B19.20 - Unspecified viral hepatitis C without hepatic coma SNOMED: 67514165 (8) UTI (urinary tract infection) ICD Codes: N39.0 - Urinary tract infection, site not specified SNOMED: 56333684 Qualifiers: Qualified Codes: N39.0 - Urinary tract infection, site not specified Status: unchanged Assessment/Plan pt diet abx cardio f/u cbc bmp am dc to snf if clear Subjective Constitutional: Reports: weakness Allergies: Coded Allergies: ACETAMINOPHEN (Verified Allergy, Unknown, 08/28/18) ASPIRIN (Verified Allergy, Unknown, 08/28/18) KETOROLAC (Verified Allergy, Unknown, 08/28/18) NSAIDS (NON-STEROIDAL ANTI-INFLAMMA (Verified Allergy, Unknown, 09/09/18) All Systems: reviewed and negative except above Subjective calm sleepy Objective Last 24 Hour Vital Signs Date Time Temp Pulse Resp B/P (MAP) Pulse Ox O2 Delivery O2 Flow Rate FiO2 01/11/19 09:50 97.7 01/11/19 09:00 Room Air 01/11/19 08:40 97.7 01/11/19 08:11 57 104/65 01/11/19 07:57 97.7 57 18 104/65 (78) 93 01/11/19 06:50 60 16 21 01/11/19 04:00 97.7 72 18 122/69 (86) 93 01/11/19 00:00 98.3 65 18 117/51 (73) 94 01/10/19 21:00 Room Air 01/10/19 20:33 77 20 Room Air 21 01/10/19 20:00 99.2 69 18 112/67 (82) 94 01/10/19 16:00 97.1 102 18 101/58 (72) 97 Intake and Output 01/10/19 01/11/19 19:00 07:00 Intake Total 720 ml 180 ml Balance 720 ml 180 ml Intake Oral 720 ml 180 ml # Voids 2 Laboratory Tests 01/11/19 05:50: White Blood Count 5.2, Red Blood Count 5.01, Hemoglobin 13.8L, Hematocrit 43.6, Mean Corpuscular Volume 87, Mean Corpuscular Hemoglobin 27.5, Mean Corpuscular Hemoglobin Concent 31.6L, Red Cell Distribution Width 15.2H, Platelet Count 85L , Mean Platelet Volume 8.9, Neutrophils (%) (Auto) , Lymphocytes (%) (Auto) , Monocytes (%) (Auto) , Eosinophils (%) (Auto) , Basophils (%) (Auto) , Differential Total Cells Counted 100, Neutrophils % (Manual) 60, Lymphocytes % ( Manual) 34, Monocytes % (Manual) 3, Eosinophils % (Manual) 2, Basophils % ( Manual) 1, Band Neutrophils 0, Platelet Estimate DecreasedL, Platelet Morphology Normal, Hypochromasia 1+, Anisocytosis 1+, Sodium Level 141, Potassium Level 3.8, Chloride Level 107, Carbon Dioxide Level 28, Anion Gap 6, Blood Urea Nitrogen 12, Creatinine 0.9, Estimat Glomerular Filtration Rate > 60 , Glucose Level 91, Calcium Level 8.5 Height (Feet): 5 Height (Inches): 8.00 Weight (Pounds): 180 General Appearance: lethargic EENT: normal ENT inspection Neck: normal alignment Cardiovascular: normal peripheral pulses, normal rate, regular rhythm Respiratory/Chest: chest wall non-tender, lungs clear, normal breath sounds Abdomen: normal bowel sounds, non tender, soft Extremities: normal inspection Edema: no edema noted Arm (L), no edema noted Arm (R), no edema noted Leg (L), no edema noted Leg (R), no edema noted Pedal (L), no edema noted Pedal (R), no edema noted Generalized Neurologic: motor weakness Skin: normal pigmentation, warm/dry Georges,Roberto [place] DO Jan 11, 2019 12:51
--- NOTE | 2019-01-11 13:02 | NUR ---
*-* DISCAHRGE PLANNING *-* PATIENT HAS BEEN REFERRED TO: JEFF MENON P:[phone] F:[phone]
--- NOTE | 2019-01-11 13:11 | NUR ---
*-* DISCHARGE PLANNED *-* PATIENT IS DISCAHRGE BACK TO: [facility] ROOM# 130-B SKILLED NURSING T:[phone] [facility] NURSE TO NURSE REPORT [facility] HAS BEEN ARRANGED FOR [facility] AT [id number] Addendum: 01/11/19 at 1312 by ENOCH WHITT CM *-* FAMILY NOTIFICATION: LVM MADE AWARE OF HER FATHERS D/C AND RETURN BACK TO [facility]
--- NOTE | 2019-01-11 13:39 | NUR ---
NURSE NOTES: pt made aware of dc order, per pt he wants a different intermediate. Dr Georges made aware . also asked md which meds to continue upon discharge (home or hospital meds) , awaiting response.
--- NOTE | 2019-01-11 13:47 | Pulmonology Progress Note ---
Assessment/Plan Problems: (1) ACS (acute coronary syndrome) (2) CAD (coronary artery disease) (3) Nephrolithiasis (4) Cirrhosis (5) Hepatitis C (6) Intractable abdominal pain (7) Psychosis (8) History of CVA (cerebrovascular accident) Assessment/Plan symptomatic treatment f/u cardiology recommendations check electrolytes and liver enzymes pain management resume psych meds. pt/ot dc planning Subjective ROS Limited/Unobtainable: No Constitutional: Reports: no symptoms HEENT: Repors: no symptoms Respiratory: Reports: no symptoms Allergies: Coded Allergies: ACETAMINOPHEN (Verified Allergy, Unknown, 08/28/18) ASPIRIN (Verified Allergy, Unknown, 08/28/18) KETOROLAC (Verified Allergy, Unknown, 08/28/18) NSAIDS (NON-STEROIDAL ANTI-INFLAMMA (Verified Allergy, Unknown, 09/09/18) Objective Last 24 Hour Vital Signs Date Time Temp Pulse Resp B/P (MAP) Pulse Ox O2 Delivery O2 Flow Rate FiO2 01/11/19 09:50 97.7 01/11/19 09:00 Room Air 01/11/19 08:40 97.7 01/11/19 08:11 57 104/65 01/11/19 07:57 97.7 57 18 104/65 (78) 93 01/11/19 06:50 60 16 21 01/11/19 04:00 97.7 72 18 122/69 (86) 93 01/11/19 00:00 98.3 65 18 117/51 (73) 94 01/10/19 21:00 Room Air 01/10/19 20:33 77 20 Room Air 21 01/10/19 20:00 99.2 69 18 112/67 (82) 94 01/10/19 16:00 97.1 102 18 101/58 (72) 97 Intake and Output 01/10/19 01/11/19 19:00 07:00 Intake Total 720 ml 180 ml Balance 720 ml 180 ml Intake Oral 720 ml 180 ml # Voids 2 Objective General Appearance: WD/WN HEENT: normocephalic Respiratory/Chest: chest wall non-tender, lungs clear, normal breath sounds Breasts: no masses Cardiovascular: normal peripheral pulses, normal rate Abdomen: normal bowel sounds, soft, non tender Extremities: no cyanosis Skin: no rash Laboratory Tests 01/11/19 05:50: White Blood Count 5.2, Red Blood Count 5.01, Hemoglobin 13.8L, Hematocrit 43.6, Mean Corpuscular Volume 87, Mean Corpuscular Hemoglobin 27.5, Mean Corpuscular Hemoglobin Concent 31.6L, Red Cell Distribution Width 15.2H, Platelet Count 85L , Mean Platelet Volume 8.9, Neutrophils (%) (Auto) , Lymphocytes (%) (Auto) , Monocytes (%) (Auto) , Eosinophils (%) (Auto) , Basophils (%) (Auto) , Differential Total Cells Counted 100, Neutrophils % (Manual) 60, Lymphocytes % ( Manual) 34, Monocytes % (Manual) 3, Eosinophils % (Manual) 2, Basophils % ( Manual) 1, Band Neutrophils 0, Platelet Estimate DecreasedL, Platelet Morphology Normal, Hypochromasia 1+, Anisocytosis 1+, Sodium Level 141, Potassium Level 3.8, Chloride Level 107, Carbon Dioxide Level 28, Anion Gap 6, Blood Urea Nitrogen 12, Creatinine 0.9, Estimat Glomerular Filtration Rate > 60 , Glucose Level 91, Calcium Level 8.5 Current Medications Medications (Trade) Dose Ordered Sig/Hugo Route PRN Reason Start Time Stop Time Status Last Admin Dose Admin Albuterol/ Ipratropium (Albuterol/ Ipratropium) 3 ml Q4H PRN HHN Shortness of Breath 01/09/19 17:00 01/14/19 16:59 Aripiprazole (Abilify) 5 mg BEDTIME ORAL 01/09/19 21:00 02/07/19 20:59 01/10/19 20:44 Atorvastatin Calcium (Lipitor) 20 mg BEDTIME ORAL 01/09/19 21:00 02/07/19 20:59 01/10/19 20:44 Carisoprodol (Soma) 350 mg QID ORAL 01/09/19 18:00 02/07/19 08:59 01/11/19 13:13 Clopidogrel Bisulfate (Plavix) 75 mg DAILY ORAL 01/10/19 09:00 02/07/19 08:59 01/11/19 08:10 Enalaprilat (Vasotec) 2.5 mg Q6H PRN IV sbp more than 160 01/09/19 18:00 02/08/19 17:59 Finasteride (Proscar) 5 mg DAILY ORAL 01/10/19 09:00 02/07/19 08:59 01/11/19 08:10 Gabapentin (Neurontin) 600 mg THREE TIMES A DAY ORAL 01/09/19 18:00 02/07/19 08:59 01/11/19 13:13 Metoprolol Tartrate (Lopressor) 25 mg EVERY 12 HOURS ORAL 01/09/19 21:00 02/07/19 08:59 01/10/19 08:38 Morphine Sulfate (Morphine Sulfate) 4 mg Q4H PRN IVP For Pain 01/09/19 15:45 01/16/19 15:44 01/11/19 13:26 Nitroglycerin (Ntg) 0.4 mg Q5M PRN SL Prn Chest Pain 01/09/19 13:45 02/06/19 22:14 Ondansetron HCl (Zofran) 4 mg Q6H PRN IVP Nausea & Vomiting 01/09/19 16:15 02/06/19 22:14 Polyethylene Glycol (Miralax) 17 gm DAILYPRN PRN ORAL Constipation 01/09/19 14:00 02/06/19 13:59 Sertraline HCl (Zoloft) 50 mg DAILY ORAL 01/10/19 09:00 02/07/19 08:59 01/11/19 08:10 Tamsulosin HCl (Flomax) 0.4 mg BID ORAL 01/09/19 18:00 02/07/19 08:59 01/11/19 08:10 Temazepam (Restoril) 15 mg HSPRN PRN ORAL Insomnia 01/09/19 14:00 01/14/19 13:59 Trazodone HCl (Desyrel) 150 mg BEDTIME ORAL 01/10/19 21:00 02/07/19 20:59 01/10/19 20:44 Lexy Christiansen MD Jan 11, 2019 13:47
--- NOTE | 2019-01-11 13:47 | Infectious Diseases Prog Note ---
Assessment/Plan Assessment/Plan Abx: Ceftriaxone x1 01/07 Assessment: Chest pain -CXR: No evidence of acute disease. Pyuria/bacteriuria- asymptomatic -u/a wbc 15-20, nit +, leuk +3; ucx >100K P.mirabilis (R bactrim, Cipro, levo ) Afebrile No leukocytosis Chronic LFT elevation Chronic Hep C, untreated,p robable cirrhosis -Hep C ab + VL 805K -Hep A not immune, Hep B immune and +Bc ab -HIV ab sc and VL neg psychosis HTN prostate surgery laminectomy GERD cholelithiasis duodenal diverticulum constipation BPH MDD rheumatic fever 1990 CVA 2012 with left sided weakness nephrolithiasis renal stent group home resident Plan: -Continue to monitor off abx unless febrile and/or urinary symptoms -f/u cx -Monitor CBC/CMP, temperatures Thank you for this consultation. Will continue to follow along with you. Discussed with RN. Subjective Allergies: Coded Allergies: ACETAMINOPHEN (Verified Allergy, Unknown, 08/28/18) ASPIRIN (Verified Allergy, Unknown, 08/28/18) KETOROLAC (Verified Allergy, Unknown, 08/28/18) NSAIDS (NON-STEROIDAL ANTI-INFLAMMA (Verified Allergy, Unknown, 09/09/18) Subjective afebrile no leukocytosis off abx Objective Vital Signs Last 24 Hour Vital Signs Date Time Temp Pulse Resp B/P (MAP) Pulse Ox O2 Delivery O2 Flow Rate FiO2 01/11/19 09:50 97.7 01/11/19 09:00 Room Air 01/11/19 08:40 97.7 01/11/19 08:11 57 104/65 01/11/19 07:57 97.7 57 18 104/65 (78) 93 01/11/19 06:50 60 16 21 01/11/19 04:00 97.7 72 18 122/69 (86) 93 01/11/19 00:00 98.3 65 18 117/51 (73) 94 01/10/19 21:00 Room Air 01/10/19 20:33 77 20 Room Air 21 01/10/19 20:00 99.2 69 18 112/67 (82) 94 01/10/19 16:00 97.1 102 18 101/58 (72) 97 Height (Feet): 5 Height (Inches): 8.00 Weight (Pounds): 180 Objective GENERAL: Calm in bed, oriented x2, in no acute distress. CARDIOVASCULAR: No murmur. LUNGS: Distant, clear. ABDOMEN: Bowel sounds positive. Nontender. Nondistended. EXTREMITIES: Show no cyanosis or edema. NEUROLOGIC: The patient moves all extremities, slightly weak. Laboratory Tests Test 01/11/19 05:50 White Blood Count 5.2 K/UL (4.8-10.8) Red Blood Count 5.01 M/UL (4.70-6.10) Hemoglobin 13.8 G/DL (14.2-18.0) L Hematocrit 43.6 % (42.0-52.0) Mean Corpuscular Volume 87 FL (80-99) Mean Corpuscular Hemoglobin 27.5 PG (27.0-31.0) Mean Corpuscular Hemoglobin Concent 31.6 G/DL (32.0-36.0) L Red Cell Distribution Width 15.2 % (11.6-14.8) H Platelet Count 85 K/UL (150-450) L Mean Platelet Volume 8.9 FL (6.5-10.1) Neutrophils (%) (Auto) % (45.0-75.0) Lymphocytes (%) (Auto) % (20.0-45.0) Monocytes (%) (Auto) % (1.0-10.0) Eosinophils (%) (Auto) % (0.0-3.0) Basophils (%) (Auto) % (0.0-2.0) Differential Total Cells Counted 100 Neutrophils % (Manual) 60 % (45-75) Lymphocytes % (Manual) 34 % (20-45) Monocytes % (Manual) 3 % (1-10) Eosinophils % (Manual) 2 % (0-3) Basophils % (Manual) 1 % (0-2) Band Neutrophils 0 % (0-8) Platelet Estimate Decreased L Platelet Morphology Normal Hypochromasia 1+ Anisocytosis 1+ Sodium Level 141 MMOL/L (136-145) Potassium Level 3.8 MMOL/L (3.5-5.1) Chloride Level 107 MMOL/L (98-107) Carbon Dioxide Level 28 MMOL/L (21-32) Anion Gap 6 mmol/L (5-15) Blood Urea Nitrogen 12 mg/dL (7-18) Creatinine 0.9 MG/DL (0.55-1.30) Estimat Glomerular Filtration Rate > 60 mL/min (>60) Glucose Level 91 MG/DL (74-106) Calcium Level 8.5 MG/DL (8.5-10.1) Current Medications Medications (Trade) Dose Ordered Sig/Hugo Route PRN Reason Start Time Stop Time Status Last Admin Dose Admin Albuterol/ Ipratropium (Albuterol/ Ipratropium) 3 ml Q4H PRN HHN Shortness of Breath 01/09/19 17:00 01/14/19 16:59 Aripiprazole (Abilify) 5 mg BEDTIME ORAL 01/09/19 21:00 02/07/19 20:59 01/10/19 20:44 Atorvastatin Calcium (Lipitor) 20 mg BEDTIME ORAL 01/09/19 21:00 02/07/19 20:59 01/10/19 20:44 Carisoprodol (Soma) 350 mg QID ORAL 01/09/19 18:00 02/07/19 08:59 01/11/19 13:13 Clopidogrel Bisulfate (Plavix) 75 mg DAILY ORAL 01/10/19 09:00 02/07/19 08:59 01/11/19 08:10 Enalaprilat (Vasotec) 2.5 mg Q6H PRN IV sbp more than 160 01/09/19 18:00 02/08/19 17:59 Finasteride (Proscar) 5 mg DAILY ORAL 01/10/19 09:00 02/07/19 08:59 01/11/19 08:10 Gabapentin (Neurontin) 600 mg THREE TIMES A DAY ORAL 01/09/19 18:00 02/07/19 08:59 01/11/19 13:13 Metoprolol Tartrate (Lopressor) 25 mg EVERY 12 HOURS ORAL 01/09/19 21:00 02/07/19 08:59 01/10/19 08:38 Morphine Sulfate (Morphine Sulfate) 4 mg Q4H PRN IVP For Pain 01/09/19 15:45 01/16/19 15:44 01/11/19 13:26 Nitroglycerin (Ntg) 0.4 mg Q5M PRN SL Prn Chest Pain 01/09/19 13:45 02/06/19 22:14 Ondansetron HCl (Zofran) 4 mg Q6H PRN IVP Nausea & Vomiting 01/09/19 16:15 02/06/19 22:14 Polyethylene Glycol (Miralax) 17 gm DAILYPRN PRN ORAL Constipation 01/09/19 14:00 02/06/19 13:59 Sertraline HCl (Zoloft) 50 mg DAILY ORAL 01/10/19 09:00 02/07/19 08:59 01/11/19 08:10 Tamsulosin HCl (Flomax) 0.4 mg BID ORAL 01/09/19 18:00 02/07/19 08:59 01/11/19 08:10 Temazepam (Restoril) 15 mg HSPRN PRN ORAL Insomnia 01/09/19 14:00 01/14/19 13:59 Trazodone HCl (Desyrel) 150 mg BEDTIME ORAL 01/10/19 21:00 02/07/19 20:59 01/10/19 20:44 Nesha Park M.D. Jan 11, 2019 13:47
--- NOTE | 2019-01-11 14:15 | Progress Note ---
DATE: 01/11/2019 SUBJECTIVE: This is a 53-year-old male patient with chest pain and increased depression, anxiety worsened by stress of his medical illness. Also, he has got some irritability, agitation, mood lability, depression, anxiety. That is why his attending has requested daily psychiatric consultation. MENTAL STATUS EXAMINATION: This is a 53-year-old male. His appearance is disheveled. Attitude, irritable and agitated. Affect, guarded and restricted. Intellect poor. Mood depressed and anxious. Motor activity, psychomotor agitation. Attention span poor. Orientation x2. Speech is low volume, slurred. Thought process, disorganized, logical. Insight and judgment is poor. DIAGNOSIS: Major depressive disorder, mild, recurrent, without psychotic features. PLAN: Treat him with Zoloft 50 mg daily, Neurontin 300 mg three times a day, and trazodone 100 mg at bedtime. Provide him with 20 minutes of cognitive behavioral therapy to help him identify automatic negative thoughts and help to convert negative thoughts to more positive thoughts to reduce depression, anxiety, and suicidality. Amy Benites M.D. DR: HERB JOB#: [id number] CC:
[2019-01-11 16:00] VITALS: BP 121/55
--- NOTE | 2019-01-11 16:01 | NUR ---
COMPUTER GRAPHIC DESIGNER NOTES PT CLEARED BY ALL CONSULTANTS FOR DC AT THIS TIME. PT TO RETURN TO [facility].
--- NOTE | 2019-01-11 18:01 | NUR ---
NURSE NOTES: arm band removed, iv removed, patient left in stable condition.
--- NOTE | 2019-01-11 18:10 | NUR ---
NURSE NOTES: report given to Teto ANGULO
--- NOTE | 2019-01-11 23:57 | Cardiology Progress Note ---
Assessment/Plan Assessment/Plan 1. Non-cardiac chest pain due to pleurisy, musculoskeletal or psychological, full cardiac workup in August of last year were negative. LVEF approximately 65 %. No ischemic features on the ECG. 2. History of CVA with left hemiparesis, consider aspirin and statins. 3. History of hypertension, continue metoprolol. Subjective Subjective Sinus rhythm at rate of 79. Objective Last 24 Hour Vital Signs Date Time Temp Pulse Resp B/P (MAP) Pulse Ox O2 Delivery O2 Flow Rate FiO2 01/11/19 17:44 97.7 01/11/19 17:44 97.7 01/11/19 16:00 97.7 79 18 121/55 (77) 93 01/11/19 12:00 98.0 68 18 122/62 (82) 93 01/11/19 09:00 Room Air 01/11/19 08:11 57 104/65 01/11/19 07:57 97.7 57 18 104/65 (78) 93 01/11/19 06:50 60 16 21 01/11/19 04:00 97.7 72 18 122/69 (86) 93 01/11/19 00:00 98.3 65 18 117/51 (73) 94 Intake and Output 01/10/19 01/11/19 19:00 07:00 Intake Total 720 ml 180 ml Balance 720 ml 180 ml Intake Oral 720 ml 180 ml # Voids 2 Laboratory Tests Test 01/11/19 05:50 White Blood Count 5.2 K/UL (4.8-10.8) Red Blood Count 5.01 M/UL (4.70-6.10) Hemoglobin 13.8 G/DL (14.2-18.0) L Hematocrit 43.6 % (42.0-52.0) Mean Corpuscular Volume 87 FL (80-99) Mean Corpuscular Hemoglobin 27.5 PG (27.0-31.0) Mean Corpuscular Hemoglobin Concent 31.6 G/DL (32.0-36.0) L Red Cell Distribution Width 15.2 % (11.6-14.8) H Platelet Count 85 K/UL (150-450) L Mean Platelet Volume 8.9 FL (6.5-10.1) Neutrophils (%) (Auto) % (45.0-75.0) Lymphocytes (%) (Auto) % (20.0-45.0) Monocytes (%) (Auto) % (1.0-10.0) Eosinophils (%) (Auto) % (0.0-3.0) Basophils (%) (Auto) % (0.0-2.0) Differential Total Cells Counted 100 Neutrophils % (Manual) 60 % (45-75) Lymphocytes % (Manual) 34 % (20-45) Monocytes % (Manual) 3 % (1-10) Eosinophils % (Manual) 2 % (0-3) Basophils % (Manual) 1 % (0-2) Band Neutrophils 0 % (0-8) Platelet Estimate Decreased L Platelet Morphology Normal Hypochromasia 1+ Anisocytosis 1+ Sodium Level 141 MMOL/L (136-145) Potassium Level 3.8 MMOL/L (3.5-5.1) Chloride Level 107 MMOL/L (98-107) Carbon Dioxide Level 28 MMOL/L (21-32) Anion Gap 6 mmol/L (5-15) Blood Urea Nitrogen 12 mg/dL (7-18) Creatinine 0.9 MG/DL (0.55-1.30) Estimat Glomerular Filtration Rate > 60 mL/min (>60) Glucose Level 91 MG/DL (74-106) Calcium Level 8.5 MG/DL (8.5-10.1) Objective HEENT: Atraumatic and normocephalic. Anicteric. Pupils are equal, round, and reactive to light and accommodation. Extraocular muscles intact. NECK: JVP less than 5 cm. No carotid bruit. Carotid upstrokes 2+ bilaterally. CARDIOVASCULAR: Normal S1, S2. Regular rate and rhythm. No murmurs, gallops, or rubs. PMI is at fourth intercostal space in the midclavicular line. LUNGS: Clear to auscultation bilaterally. ABDOMEN: Soft, nontender, and nondistended. No hepatosplenomegaly. Positive bowel sounds. EXTREMITIES: No evidence of edema, clubbing, or cyanosis. There is diminished motor function in left upper and lower limbs. Tu Hughes MD Jan 11, 2019 23:57
--- NOTE | 2019-01-12 04:15 | Consultation ---
DATE OF CONSULTATION: 01/10/2019 NOTE: POOR AUDIO PSYCHOTHERAPY CONSULTATION PROGRESS NOTE CONSULTING PHYSICIAN: Dayna Kitchen PsyD. HISTORY OF PRESENT ILLNESS: This is a 53-year-old male patient from [facility]. The patient was brought into the hospital for chest pain and it was sharp and radiating to his left arm and he was brought into the hospital for these reasons. The patient has been very confused and anxious, and for these reasons, he was referred for psychotherapeutic services. This clinician assessed the patient. This patient states that he is feeling anxious because of the chest pain. He states that he is frightened and is scared and this was very distressing, and for these reasons, he has been feeling anxious. He is slightly confused and disorganized in his thought process. He is forgetful and has difficulty with memory. He has difficult time recalling what day it is, who the doctors were, what treatment he is receiving . He denies suicidal or homicidal thoughts of ideation. He denies any auditory or visual hallucinations. At this time, he has no viable plan for his self-care. He states symptoms. He is cooperative with this clinician. PAST MEDICAL HISTORY: Includes a history of hepatitis C, cirrhosis, gallstones, and CVA. ALLERGIES: Tylenol, aspirin, Titralac, and NSAIDS. SUBSTANCE ABUSE HISTORY: There is no indication of alcohol use, illicit drug use, or smoking cigarettes. PSYCHIATRIC HISTORY: The patient does have a history of depression and anxiety. He has been treated with medications in the past. SOCIAL HISTORY: The patient is a 53-year-old male patient from [facility]. Financially sustained through [facility]. MENTAL STATUS EXAMINATION: The patient is alert and oriented to person and place. Mood is anxious. Affect is blunted. Thought process is disorganized. He has poor attention and concentration. Poor insight, judgment, and impulse control. Assessed this patient. Provided the patient with reality orientation that is focused on providing cognitive function and . He is confused and disoriented. Oriented to person, place, time, and situation. Provided the patient with supportive psychotherapy focused on identifying positive emotions of stress and feelings of anxiety and restlessness in session allowing the patient to express his emotions in session and also provide the patient with cognitive behavioral therapy focused on techniques feelings of anxiety, and working on identifying positive coping skills, relaxation exercises, positive in order to reduce his level of anxiety. DIAGNOSIS: 1. Major depressive disorder, recurrent, moderate without psychotic features. 2. Generalized anxiety disorder. PLAN: Plan is to maintain medication compliance positive coping skills the patient's anxiety and oriented to patient's reality. The patient . This clinician has reviewed the patient's chart. Discussed treatment with treatment team. . Dayna Kitchen PsyD. DR: FLORIN JOB#: [id number] CC:
--- NOTE | 2019-01-12 10:33 | Discharge Summary ---
Discharge Summary Discharge Summary _ DATE OF ADMISSION:01/07/19 DATE OF DISCHARGE:01/11/19 DISCHARGED BY: Dr Georges REASON FOR ADMISSION: 53 years old male with past medical history of CVA with left hemiparesis, liver cirrhosis, renal calculi, pyelonephritis, BPH, coronary artery disease, hepatitis C, presented to emergency department with complaint of chest pain. Licensed Occupational Therapy Assistant performed EKG en route, that showed no acute ischemic changes. Patient received nitroglycerin without much help. Patient reported similar symptoms in the past. Patient was just recently discharged from the hospital with similar problems. Upon evaluation vital signs were stable. Laboratory workup revealed no leukocytosis, stable hemoglobin hematocrit. Stable electrolytes. Glucose 106. AST 89, ALT 105. Troponin - 0.005. EKG revealed no acute ischemic changes. Pro BNP 49. Urinalysis with evidence of bacteriuria, pyuria , +2 leukocyte esterase . + 2 protein. Urine toxicology screen was negative. Chest x-ray revealed no acute cardiopulmonary pathology. Patient subsequently was admitted for further management. CONSULTANTS: supervisor cell efficiency Dr. Hughes pulmonary Dr. Christiansen ID specialist Dr. Chnace psychiatrist Dr. Benites [facility]SE: Patient admitted to telemetry floor. Serial troponin were negative. EKG revealed no acute ischemic changes. Patient was rule out for acute myocardial infarction. Prior echocardiogram revealed preserved ejection fraction. Manufacturing Quality Manager closely followed. Per supervisor cell efficiency , chest pain was noncardiac, likely due to pleurisy, musculoskeletal or psychological. Full cardiac workup was done in August of last year and was negative. No evidence of pleuritic chest pain. No evidence of musculoskeletal origin of chest pain: chest wall nontender on palpation, no recent injury or trauma. Chest pain was probably psychological , due to history of psychosis and major depressive disorder. Patient was continued on Plavix and statin (allergic to Aspirin) . Blood pressure was managed with beta-ashley , remained stable. Nitroglycerin was on board as needed. DVT prophylaxis provided. Psychiatric medications were optimized as per psychiatrist recommendation. Supportive care provided. Infectious disease follow. Patient patient received empiric antibiotic x1 for possible UTI. Per ID specialist, recommended keep patient off antibiotic ,given no fever, no leukocytosis, no urinary complaints. Proscar was continued. Prior abdominal ultrasound and CT of the abdomen / pelvis, done on previous admission , were unremarkable. LFT were closely monitored. Baseline LFT elevated, likely due to history of hepatitis C and/or cirrhosis. Patient clinically stabilized and was [facility] of care FINAL DIAGNOSES: Non- cardiac chest pain , probably psychological Pyuria/bacteriuria-asymptomatic Elevated LFTs - chronic, probably due to history of hepatitis C and cirrhosis Liver cirrhosis Hepatitis C Cerebrovascular disease with history of CVA and left-sided hemiparesis Coronary artery disease Major depressive disorder, mild, recurrent, without psychotic features Psychosis DISCHARGE MEDICATIONS: See Medication Reconciliation list. DISCHARGE INSTRUCTIONS: [facility] the [facility] facility. Follow up with medical doctor at the facility. Sharelne Chicas NP Jan 12, 2019 10:33
== END 2019-01-11 17:45 | DRG 313 ==
LOC: EDBD 16:47 → EMR 17:28 → EDBEDREQ 17:31 → OBSVTOIN 18:05 → 2E 18:05 → EDBEDREQ 19:44 → 4E 01-09 13:40
DX: R07.89 Other chest pain (principal); F33.0 Major depressive disorder, recurrent, mild; I69.354 Hemiplegia and hemiparesis following cerebral infarction affecting left non-dominant side; R07.9 Chest pain, unspecified; K21.9 Gastro-esophageal reflux disease without esophagitis; K74.60 Unspecified cirrhosis of liver; B19.20 Unspecified viral hepatitis C without hepatic coma; I25.10 Atherosclerotic heart disease of native coronary artery without angina pectoris; F29 Unspecified psychosis not due to a substance or known physiological condition; Z88.6 Allergy status to analgesic agent; E78.5 Hyperlipidemia, unspecified; N40.0 Benign prostatic hyperplasia without lower urinary tract symptoms; F41.1 Generalized anxiety disorder; D69.6 Thrombocytopenia, unspecified
CPT/HCPCS: 36415; 71045; 80048; 80053; 80061; 80307; 81003; 82550; 83880; 84443; 84484; 85007; 85025; 85610; 85730; 86140; 87081; 87086; 87181; 93005; 94664; 96374; J2405

== ENCOUNTER 2019-01-31 12:22 | Inpatient (IN) | payer MEDICARE, MEDICAID ==
[~2019-01-31] VITALS: Ht 180.3 cm; Wt 119.3 kg
[~2019-01-31 12:22] MED LIST changes: +DULCOLAX10 MG RC; +SENNA8.6 M2 PO
--- NOTE | 2019-01-31 12:31 | NUR ---
ED Nurse Note: Pt BIBA from [facility] due to L sided chest pain radiating to L arm x 1 hr prior to arrival. crushing pain, 9/10 amanda. Pt was given 3x Nitro SL but stated no relief. AOx4, VSS amanda. Monitor attached. Will cont to monitor.
[2019-01-31 12:44] VITALS: BP 119/59
[2019-01-31] MEDS ORDERED: Morphine Sulfate 2mg/ml Inj(IV/IM USE ONLY) IVP ONE (12:45)
[2019-01-31 12:53] LABS: EOSINOPHILS % (AUTO) 2.4 % (0.0-3.0); HEMATOCRIT 50.4 % (42.0-52.0); HEMOGLOBIN 15.8 G/DL (14.2-18.0); MEAN CORPUSCULAR VOLUME 84 FL (80-99); MONOCYTES % (AUTO) 7.8 % (1.0-10.0); NEUTROPHILS % (AUTO) 67.9 % (45.0-75.0); PLATELET COUNT 128 K/UL (150-450); RED BLOOD COUNT 5.97 M/UL (4.70-6.10); RED CELL DISTRIBUTION WIDTH 15.5 % (11.6-14.8); WHITE BLOOD COUNT 9.3 K/UL (4.8-10.8)
--- NOTE | 2019-01-31 12:57 | NUR ---
ED Nurse Note: Xray at the bedside.
[2019-01-31] MEDS ORDERED: dilTIAZem HCl 25mg/5ml Inj IV PRN (13:15)
[2019-01-31] MEDS ORDERED: Albuterol/Ipratropium 3ml neb HHN PRN (13:15)
[2019-01-31] MEDS ORDERED: Enalaprilat 2.5mg/2ml Inj IV PRN (13:15)
--- NOTE | 2019-01-31 13:32 | NUR ---
ED Nurse Note: Pt noted to have blanchable redness on the sacrum area.
--- NOTE | 2019-01-31 13:47 | NUR ---
Barry wang in EDM - 01/31/19 at 1425 by CORA ED Nurse Note: DAUGHTER, KAYLEIGH ELENA, RESPONSIBLE FOR MAKING MEDICAL DECISIONS FOR PT, WANTS TO BE NOTIFIED ABOUT CARE AND ANY INFO,
--- NOTE | 2019-01-31 14:14 | NUR ---
ED Nurse Note: Tried giving report, RN unavailable. Will try again later.
--- NOTE | 2019-01-31 14:19 | Diagnostic Imaging Report ---
Indication: Chest pain Technique: One view of the chest Comparison: 01/07/2019 Findings: Body habitus limits evaluation. There is some atelectasis at the left lung base. Lungs and pleural spaces are otherwise clear. Heart is upper limits normal in size. The aorta is tortuous. No significant interim change Impression: Left basilar atelectasis. No acute process otherwise
--- NOTE | 2019-01-31 14:25 | NUR ---
ED Nurse Note: Lab redraw sent to lab.
[2019-01-31 14:49] VITALS: BP 105/57
--- NOTE | 2019-01-31 14:49 | NUR ---
ED Nurse Note: Called lab to f/u w/ results.
--- NOTE | 2019-01-31 15:04 | Emergency Room Report ---
History of Present Illness General Chief Complaint: Chest Pain Source: Patient, Medical Record, EMS Present Illness HPI 53-year-old male presents ED complaining of chest pain. Started today at half-way facility. At rest. Midsternal, sharp, 7 out of 10, nonradiating. Given nitroglycerin without relief. Denies shortness of breath. Denies fevers or chills. No other aggravating relieving factors. Denies any other associated symptoms Allergies: Coded Allergies: ACETAMINOPHEN (Verified Allergy, Unknown, 08/28/18) ASPIRIN (Verified Allergy, Unknown, 08/28/18) KETOROLAC (Verified Allergy, Unknown, 08/28/18) NSAIDS (NON-STEROIDAL ANTI-INFLAMMA (Verified Allergy, Unknown, 09/09/18) Patient History Past Medical History: HTN, CVA/TIA Past Surgical History: none Pertinent Family History: none Social History: Denies: smoking, alcohol use, drug use Immunizations: UTD Reviewed Nursing Documentation: PMH: Agreed; PSxH: Agreed Nursing Documentation-PMH Hx Cardiac Problems: Yes - Stroke 2012 Hx Hypertension: Yes Hx Cancer: No Hx Gastrointestinal Problems: Yes - abdominal pain Hx Dialysis: No - History of kidney stones, UTI, BPH Hx Neurological Problems: Yes Hx Cerebrovascular Accident: Yes - Left sided hemiparesis Hx Weakness: Yes Hx Neurologic Surgery: No Review of Systems All Other Systems: negative except mentioned in HPI Physical Exam Vital Signs Date Time Temp Pulse Resp B/P (MAP) Pulse Ox O2 Delivery O2 Flow Rate FiO2 01/31/19 12:17 98.2 67 18 102/62 97 Nasal Cannula 2.0 Sp02 EP Interpretation: reviewed, normal General Appearance: no apparent distress, alert, GCS 15, non-toxic Head: normocephalic, atraumatic Eyes: bilateral eye normal inspection, bilateral eye PERRL ENT: hearing grossly normal, normal pharynx, no angioedema, normal voice Neck: full range of motion, supple/symm/no masses Respiratory: chest non-tender, lungs clear, normal breath sounds, speaking full sentences Cardiovascular #1: regular rate, rhythm, no edema Cardiovascular #2: 2+ carotid (R), 2+ carotid (L), 2+ radial (R), 2+ radial (L) , 2+ dorsalis pedis (R), 2+ dorsalis pedis (L) Gastrointestinal: normal bowel sounds, non tender, soft, non-distended, no guarding, no rebound Rectal: deferred Genitourinary: normal inspection, no CVA tenderness Musculoskeletal: back normal, gait/station normal, normal range of motion, non- tender Neurologic: alert, oriented x3, responsive, motor strength/tone normal, sensory intact, speech normal Psychiatric: judgement/insight normal, memory normal, mood/affect normal, no suicidal/homicidal ideation Reflexes: 3+ bicep (R), 3+ bicep (L), 3+ tricep (R), 3+ tricep (L), 3+ knee (R) , 3+ knee (L) Skin: normal color, no rash, warm/dry, well hydrated Lymphatic: no adenopathy Medical Decision Making Diagnostic Impression: Primary Impression: ACS (acute coronary syndrome) ER Course Hospital Course 53-year-old male presents ED complaining of chest pain Differential diagnoses include: IL/unstable angina, contusion, muscle strain, PTX, rib fracture Clinical course Patient placed on stretcher. on court monitor. After initial history and physical I ordered labs, EKG, chest x-ray, morphine labs reviewed- no leukocytosis, hb/hct stable, electrolytes ok, trop negative EKG - NSRm, no acute ischemic changes interpretd by me Chest x-ray- no acute process Case discussed with Dr. Georges and he agreed to accept the patient to his service for further care and support I. I feel this is a highly complex case requiring extensive working including EKG/Rhythm strip, Xray/CT/US, Blood/urine lab work, repeat exams while in ED, and administration of strong opiates/narcotics for pain control, admission to hospital or close patient follow up. Diagnosis - ACS admitted to telemetry in serious condition Labs Test 01/31/19 12:35 01/31/19 14:20 White Blood Count 9.3 K/UL (4.8-10.8) Red Blood Count 5.97 M/UL (4.70-6.10) Hemoglobin 15.8 G/DL (14.2-18.0) Hematocrit 50.4 % (42.0-52.0) Mean Corpuscular Volume 84 FL (80-99) Mean Corpuscular Hemoglobin 26.5 PG (27.0-31.0) Mean Corpuscular Hemoglobin Concent 31.3 G/DL (32.0-36.0) Red Cell Distribution Width 15.5 % (11.6-14.8) Platelet Count 128 K/UL (150-450) Mean Platelet Volume 10.8 FL (6.5-10.1) Neutrophils (%) (Auto) 67.9 % (45.0-75.0) Lymphocytes (%) (Auto) 21.0 % (20.0-45.0) Monocytes (%) (Auto) 7.8 % (1.0-10.0) Eosinophils (%) (Auto) 2.4 % (0.0-3.0) Basophils (%) (Auto) 1.0 % (0.0-2.0) EKG Diagnostic Results Rate: normal Rhythm: NSR ST Segments: no acute changes ASA given to the pt in ED: No - allergy to aspirin Rhythm Strip Diag. Results EP Interpretation: yes Rhythm: NSR, no PVC's, no ectopy Chest X-Ray Diagnostic Results Chest X-Ray Diagnostic Results : Chest X-Ray Ordered: Yes # of Views/Limited/Complete: 1 View Indication: Chest Pain EP Interpretation: Yes Interpretation: no consolidation, no effusion, no pneumothorax, no acute cardiopulmonary disease Impression: No acute disease Electronically Signed by: Electronically signed by Mateo Mari MD Last Vital Signs Date Time Temp Pulse Resp B/P (MAP) Pulse Ox O2 Delivery O2 Flow Rate FiO2 01/31/19 14:49 98.1 55 15 105/57 96 Nasal Cannula 2.0 Status: improved Disposition: ADMITTED INPATIENT Condition: Serious Referrals: Roberto Georges DO (PCP) Mateo Mari MD Jan 31, 2019 15:04
[2019-01-31 15:08] LABS: ALANINE AMINOTRANSFERASE 83 U/L (12-78); ALBUMIN 3.1 G/DL (3.4-5.0); ALBUMIN/GLOBULIN RATIO 0.7 (1.0-2.7); ALKALINE PHOSPHATASE 81 U/L (46-116); ANION GAP 9 mmol/L (5-15); ASPARTATE AMINO TRANSFERASE 70 U/L (15-37); BILIRUBIN,TOTAL 0.4 MG/DL (0.2-1.0); BLOOD UREA NITROGEN 13 mg/dL (7-18); CALCIUM 8.7 MG/DL (8.5-10.1); CARBON DIOXIDE 24 MMOL/L (21-32); CHLORIDE 108 MMOL/L (98-107); CREATININE 0.9 MG/DL (0.55-1.30); POTASSIUM 4.1 MMOL/L (3.5-5.1); SODIUM 141 MMOL/L (136-145)
[2019-01-31] MEDS ORDERED: Miralax 17gm pkt ORAL PRN (15:15)
[2019-01-31] MEDS ORDERED: Nitroglycerin Subl 0.4mg tab SL PRN (15:15)
--- NOTE | 2019-01-31 15:19 | NUR ---
ED Nurse Note: Tried giving report, RN on lunch. Will try again.
--- NOTE | 2019-01-31 15:53 | NUR ---
ED Nurse Note: Gave telephone report to ADELE Luther.
--- NOTE | 2019-01-31 16:09 | NUR ---
ED Nurse Note: Transferred pt up to tele unit. No acute distress noted. No belongings.
--- NOTE | 2019-01-31 16:16 | NUR ---
NURSE NOTES: ADMITTED PT TO TELE TO ROOM 206-2 FROM ED.RECEIVED REPORT AND PT FROM FRANKIE ANGULO. PT WAS TRANSPORTED BY [facility]. PT IS A/OX4 AND ABLE TO VERBALIZE NEEDS. ON ADMISSION, PT C/O PAIN 07/26. WILL MEDICATE PRN PAIN. PT HAS SACRUM REDNESS, RIGHT HIP RASH, AND IN Addendum: 01/31/19 at 1845 by Ping Springer RN PT HAS SACRUM REDNESS AND RIGHT HIP RASH. PHOTOS TAKEN AND UPLOADED ON FILE. PT HAS 20 GAUGE IV TO RIGHT WRIST. NO SIGN OF INFILTRATED NOTED. ADMISSION PROTOCOL DONE. ALL ADMISSION ORDERS CARRIED OUT. FALL RISK PRECAUTIONS IN PLACE. PT ORIENTED TO STAFF AND UNIT.WILL CONTINUE TO MONITOR. CALL LIGHT WITHIN REACH.
[2019-01-31] MEDS: Morphine Sulfate 2mg/ml Inj(IV/IM USE ONLY) IVP PRN ×2 (17:56→22:21)
--- NOTE | 2019-01-31 19:35 | NUR ---
HAND-OFF: Report given to LEANNE ANGULO.
[2019-01-31 20:00] VITALS: BP 112/64
--- NOTE | 2019-01-31 20:00 | NUR ---
received pt in stable condition, glucerna feeding running at 55 ml/hr. no acute distress noted. safety precaution in place. will continue to monitor. Addendum: 02/01/19 at 0743 by Li Jc RN wrong pt
[2019-01-31] MEDS: TraZODone 50mg tab ORAL SCH (21:07)
[2019-01-31] MEDS: Metoprolol 25mg tab ORAL SCH (21:08)
[2019-01-31] MEDS: Heparin 5000 units/ml inj SUBQ SCH (21:12)
--- NOTE | 2019-01-31 21:15 | History and Physical Report ---
DATE OF ADMISSION: 01/31/2019 TIME SEEN: 2 p.m. CONSULTANTS: 1. Lexy Christiansen M.D. 2. Tu Hughes M.D. 3. Amy Benites M.D. CHIEF COMPLAINT: Chest pain and weakness. BRIEF HISTORY: This is a 53-year-old male from [facility] presents with history of dull chest pain for two days, substernal, radiating to the left arm. No dizziness. No loss of consciousness. Slightly weak. The patient came to [facility], diagnosed with the above, being admitted to telemetry for further care. Currently, calm, O2 NC, slight short of breath in the ER gurney. REVIEW OF SYSTEMS: Slight chest pain. Slight short of breath. No nausea, vomiting, or diarrhea. PAST MEDICAL HISTORY: CAD, CVA, cirrhosis, hepatitis C, psychosis. PAST SURGICAL HISTORY: Back surgery. MEDICATIONS: Include Plavix, Proscar, Zoloft, Abilify, Lipitor, Lopressor, Desyrel, heparin, Soma, Neurontin, albuterol, morphine, Zofran, Vasotec, diltiazem. ALLERGIES: Tylenol, Toradol, trazodone, NSAID, aspirin SOCIAL HISTORY: No smoking. No alcohol. No intravenous drug abuse. FAMILY HISTORY: Noncontributory. PHYSICAL EXAMINATION: GENERAL: Calm in bed, oriented x2, in no acute distress. VITAL SIGNS: Temperature is 98 degrees, pulse 68, respiratory rate 18, blood pressure 119/59. CARDIOVASCULAR: No murmur. LUNGS: Distant and clear. ABDOMEN: Bowel sounds positive. Nontender. Nondistended. EXTREMITIES: No cyanosis or edema. NEUROLOGIC: The patient moves all extremities, slightly weak. LABORATORY AND DIAGNOSTIC DATA: CBC is normal. BMP is pending. ASSESSMENT: 1. Chest pain, left-sided weakness. 2. CAD. 3. CVA. 4. Cirrhosis of liver. 5. Hepatitis C. 6. Psych history. PLAN: 1. O2, pulmonary treatment. 2. Pain control. 3. PT, dietary evaluation. 4. CBC and BMP. 5. Resume home medications. 6. Cardiology followup. 7. We will continue to follow the patient. 8. Psych evaluation. Roberto Georges D.O. DR: Elba JOB#: [id number] CC:
[2019-02-01] VITALS: BP 132/71
--- NOTE | 2019-02-01 | NUR ---
NURSE NOTES: pt sleeping, no s/s of pain or acute distress. will continue to monitor.
[2019-02-01 04:00] VITALS: BP 107/57
[2019-02-01] MEDS: Morphine Sulfate 2mg/ml Inj(IV/IM USE ONLY) IVP PRN ×4 (06:33→22:08)
--- NOTE | 2019-02-01 07:15 | NUR ---
NURSE NOTES: REPORT OBTAINED FROM LEANNE ANGULO.
--- NOTE | 2019-02-01 07:20 | NUR ---
HAND-OFF: Report given to Jason ANGULO. pt in stable condition
--- NOTE | 2019-02-01 07:41 | NUR ---
CASE MANAGEMENT:REVIEW 53 YR OLD MALE BIBA FROM [facility] CC: CHEST PAIN PMH: ALLERGIC TO ASPIRIN SI: ACS 98.2 67 18 102/62 97% ON 2L/NC TROPONIN(-) IS; NITRO GIVEN X3 PROJECT CONTROLS SPECIALIST ~ NO RELIEF IV MORPHINE 500CC NS BOLUS : TO TELEMETRY IS: PLAVIX PO QD LOPRESSOR PO Q12 HEPARIN SQ Q12 IV MORPHINE Q4HRS PRN PLAN: 2DECHO CHEST XRAY
--- NOTE | 2019-02-01 07:48 | NUR ---
INTERQUAL CRITERIA MET FOR OBSERVATION STATUS
[2019-02-01 08:00] VITALS: BP 108/62
[2019-02-01 08:05] LABS: INR 1.1 (0.9-1.1)
[2019-02-01 08:09] LABS: HEMATOCRIT 46.8 % (42.0-52.0); HEMOGLOBIN 14.8 G/DL (14.2-18.0); MEAN CORPUSCULAR VOLUME 86 FL (80-99); PLATELET COUNT 98 K/UL (150-450); RED BLOOD COUNT 5.46 M/UL (4.70-6.10); RED CELL DISTRIBUTION WIDTH 15.5 % (11.6-14.8); WHITE BLOOD COUNT 6.5 K/UL (4.8-10.8)
[2019-02-01 08:24] LABS: CHOLESTEROL 80 MG/DL (< 200); HDL CHOLESTEROL 24 MG/DL (40-60); TRIGLYCERIDES 61 MG/DL (30-150)
[2019-02-01] MEDS: Sertraline 50mg tab ORAL SCH (08:47)
[2019-02-01] MEDS: Heparin 5000 units/ml inj SUBQ SCH ×2 (08:47→21:00)
[2019-02-01] MEDS: Metoprolol 25mg tab ORAL SCH ×2 (08:49→21:05)
[2019-02-01 08:59] LABS: ANION GAP 12 mmol/L (5-15); BLOOD UREA NITROGEN 15 mg/dL (7-18); CALCIUM 8.7 MG/DL (8.5-10.1); CARBON DIOXIDE 23 MMOL/L (21-32); CHLORIDE 108 MMOL/L (98-107); CREATININE 0.9 MG/DL (0.55-1.30); POTASSIUM 3.8 MMOL/L (3.5-5.1); SODIUM 143 MMOL/L (136-145)
--- NOTE | 2019-02-01 10:09 | Consultation ---
History of Present Illness General Date patient seen: Feb 01, 2019 Chief Complaint: Chest Pain Reason for Consultation: chest pain Present Illness HPI 53-year-old male with hx of CVA, Hemiparesis, COPD presented to ED complaining of chest pain started today at custodial facility. The pain was midsternal, sharp, 7 out of 10, nonradiating. He received nitroglycerin without relief. Denies shortness of breath. He is admitted to telemetry for further work up. Allergies: Coded Allergies: ACETAMINOPHEN (Verified Allergy, Unknown, 08/28/18) ASPIRIN (Verified Allergy, Unknown, 08/28/18) KETOROLAC (Verified Allergy, Unknown, 08/28/18) NSAIDS (NON-STEROIDAL ANTI-INFLAMMA (Verified Allergy, Unknown, 09/09/18) Medication History Scheduled Aripiprazole* (Abilify*), 5 MG ORAL BEDTIME, (Reported) Atorvastatin Calcium* (Atorvastatin Calcium*), 20 MG ORAL BEDTIME, (Reported) Bisacodyl (Bisacodyl), 10 MG RC PRN, (Reported) Bisacodyl (Dulcolax), 10 MG RC NEEDED, (Reported) Carisoprodol* (Carisoprodol*), 350 MG ORAL QID, (Reported) Clopidogrel Bisulfate* (Plavix*), 75 MG ORAL DAILY, (Reported) Cranberry Fruit Concentrate (Cranberry), 900 MG PO BID, (Reported) Docusate Sodium* (Colace*), 100 MG ORAL DAILY, (Reported) Famotidine (Famotidine), 20 MG ORAL AC, (Reported) Finasteride* (Proscar*), 5 MG ORAL DAILY, (Reported) Finasteride* (Proscar*), 5 MG ORAL DAILY, (Reported) Folic Acid* (Folic Acid*), 1 MG ORAL DAILY, (Reported) Gabapentin* (Gabapentin*), 600 MG ORAL THREE TIMES A DAY, (Reported) Lactulose (Lactulose*), 30 ML ORAL DAILY, (Reported) Metoprolol Tartrate* (Metoprolol Tartrate*), 25 MG ORAL EVERY 12 HOURS, ( Reported) Multivitamin With Minerals (Multivitamins With Minerals*), 1 TAB ORAL DAILY, ( Reported) Sennosides (Senna), 8.6 MG PO BEDTIME, (Reported) Sertraline Hcl* (Zoloft*), 50 MG ORAL DAILY, (Reported) Sertraline Hcl* (Zoloft*), 50 MG ORAL DAILY, (Reported) Tamsulosin Hcl (Tamsulosin Hcl*), 0.4 MG ORAL BID, (Reported) Trazodone Hcl* (Desyrel*), 50 MG ORAL BEDTIME, (Reported) Scheduled PRN Magnesium Hydroxide* (Milk Of Magnesia*), 30 ML ORAL BEDTIME PRN for IF NO BM X 3 DAYS, (Reported) Na Phos,M-B/Na Phos,Di-Ba* (Fleet Enema*), 133 ML RECTAL QOD PRN for IF BISACODYL INEFFECTIVE, (Reported) Tramadol Hcl* (Ultram*), 50 MG ORAL Q8HR PRN for SEVERE PAIN (8-10), (Reported) Patient History Healthcare decision maker Resuscitation status Advanced Directive on File Past Medical/Surgical History Past Medical/Surgical History: (1) History of urethral stent (2) Hepatitis C (3) Cirrhosis (4) Thrombocytopenia (5) History of CVA (cerebrovascular accident) (6) Psychosis Review of Systems Cardiovascular: Reports: chest pain, palpitations Physical Exam General Appearance: WD/WN Lines, tubes and drains: peripheral HEENT: normocephalic, atraumatic Neck: non-tender, normal alignment Respiratory/Chest: chest wall non-tender, lungs clear Breasts: no masses Cardiovascular/Chest: normal peripheral pulses Abdomen: normal bowel sounds, soft Extremities: normal range of motion Last 24 Hour Vital Signs Date Time Temp Pulse Resp B/P (MAP) Pulse Ox O2 Delivery O2 Flow Rate FiO2 02/01/19 08:49 61 108/62 02/01/19 04:00 64 02/01/19 04:00 97.6 58 19 107/57 (74) 100 02/01/19 00:00 59 02/01/19 00:00 98.6 66 20 132/71 (91) 99 01/31/19 21:08 66 126/62 01/31/19 21:00 Room Air 01/31/19 20:00 64 01/31/19 20:00 98.0 72 19 112/64 (80) 100 01/31/19 16:40 Nasal Cannula 2.0 01/31/19 16:08 98.2 57 17 113/59 97 Nasal Cannula 2.0 01/31/19 14:49 98.1 55 15 105/57 96 Nasal Cannula 2.0 01/31/19 13:27 98.2 01/31/19 12:44 68 18 Nasal Cannula 2.0 01/31/19 12:44 98.2 68 18 119/59 97 Nasal Cannula 2.0 01/31/19 12:17 98.2 67 18 102/62 97 Nasal Cannula 2.0 Intake and Output 01/31/19 02/01/19 18:59 06:59 Intake Total 1000 ml Balance 1000 ml Intake IV Total 1000 ml Laboratory Tests Test 01/31/19 12:35 01/31/19 14:20 02/01/19 06:57 White Blood Count 9.3 K/UL (4.8-10.8) 6.5 K/UL (4.8-10.8) Red Blood Count 5.97 M/UL (4.70-6.10) 5.46 M/UL (4.70-6.10) Hemoglobin 15.8 G/DL (14.2-18.0) 14.8 G/DL (14.2-18.0) Hematocrit 50.4 % (42.0-52.0) 46.8 % (42.0-52.0) Mean Corpuscular Volume 84 FL (80-99) 86 FL (80-99) Mean Corpuscular Hemoglobin 26.5 PG (27.0-31.0) L 27.1 PG (27.0-31.0) Mean Corpuscular Hemoglobin Concent 31.3 G/DL (32.0-36.0) L 31.6 G/DL (32.0-36.0) L Red Cell Distribution Width 15.5 % (11.6-14.8) H 15.5 % (11.6-14.8) H Platelet Count 128 K/UL (150-450) L 98 K/UL (150-450) L Mean Platelet Volume 10.8 FL (6.5-10.1) H 9.8 FL (6.5-10.1) Neutrophils (%) (Auto) 67.9 % (45.0-75.0) % (45.0-75.0) Lymphocytes (%) (Auto) 21.0 % (20.0-45.0) % (20.0-45.0) Monocytes (%) (Auto) 7.8 % (1.0-10.0) % (1.0-10.0) Eosinophils (%) (Auto) 2.4 % (0.0-3.0) % (0.0-3.0) Basophils (%) (Auto) 1.0 % (0.0-2.0) % (0.0-2.0) Sodium Level 141 MMOL/L (136-145) 143 MMOL/L (136-145) Potassium Level 4.1 MMOL/L (3.5-5.1) 3.8 MMOL/L (3.5-5.1) Chloride Level 108 MMOL/L (98-107) H 108 MMOL/L (98-107) H Carbon Dioxide Level 24 MMOL/L (21-32) 23 MMOL/L (21-32) Anion Gap 9 mmol/L (5-15) 12 mmol/L (5-15) Blood Urea Nitrogen 13 mg/dL (7-18) 15 mg/dL (7-18) Creatinine 0.9 MG/DL (0.55-1.30) 0.9 MG/DL (0.55-1.30) Estimat Glomerular Filtration Rate > 60 mL/min (>60) > 60 mL/min (>60) Glucose Level 76 MG/DL (74-106) 89 MG/DL (74-106) Calcium Level 8.7 MG/DL (8.5-10.1) 8.7 MG/DL (8.5-10.1) Total Bilirubin 0.4 MG/DL (0.2-1.0) Aspartate Amino Transf (AST/SGOT) 70 U/L (15-37) H Alanine Aminotransferase (ALT/SGPT) 83 U/L (12-78) H Alkaline Phosphatase 81 U/L (46-116) Troponin I 0.008 ng/mL (0.000-0.056) 0.022 ng/mL (0.000-0.056) Pro-B-Type Natriuretic Peptide 61 pg/mL (0-125) Total Protein 7.6 G/DL (6.4-8.2) Albumin 3.1 G/DL (3.4-5.0) L Globulin 4.5 g/dL Albumin/Globulin Ratio 0.7 (1.0-2.7) L Neutrophils % (Manual) Pending Lymphocytes % (Manual) Pending Platelet Estimate Pending Platelet Morphology Pending Prothrombin Time 11.9 SEC (9.30-11.50) H Prothromb Time International Ratio 1.1 (0.9-1.1) Activated Partial Thromboplast Time 32 SEC (23-33) C-Reactive Protein, Quantitative 0.7 mg/dL (0.00-0.90) Triglycerides Level 61 MG/DL (30-150) Cholesterol Level 80 MG/DL (< 200) LDL Cholesterol 53 mg/dL (<100) HDL Cholesterol 24 MG/DL (40-60) L Cholesterol/HDL Ratio 3.3 (3.3-4.4) Thyroid Stimulating Hormone (TSH) 1.534 uiU/mL (0.358-3.740) Height (Feet): 5 Height (Inches): 11.00 Weight (Pounds): 264 Medications Current Medications Medications (Trade) Dose Ordered Sig/Hugo Route PRN Reason Start Time Stop Time Status Last Admin Dose Admin Albuterol/ Ipratropium (Albuterol/ Ipratropium) 3 ml Q4H PRN HHN Shortness of Breath 01/31/19 13:15 02/05/19 13:14 Aripiprazole (Abilify) 5 mg BEDTIME ORAL 01/31/19 21:00 03/02/19 20:59 01/31/19 21:07 Atorvastatin Calcium (Lipitor) 20 mg BEDTIME ORAL 01/31/19 21:00 03/02/19 20:59 01/31/19 21:07 Carisoprodol (Soma) 350 mg Q6H PRN ORAL Muscle spasms 01/31/19 15:30 03/02/19 15:29 Clopidogrel Bisulfate (Plavix) 75 mg DAILY ORAL 02/01/19 09:00 03/03/19 08:59 02/01/19 08:47 Diltiazem HCl (Cardizem) 10 mg EVERY HOUR PRN IV heart rate more than 120BPM 01/31/19 13:15 03/02/19 13:14 Enalaprilat (Vasotec) 2.5 mg Q6H PRN IV sbp more than 160 01/31/19 13:15 03/02/19 13:14 Finasteride (Proscar) 5 mg DAILY ORAL 02/01/19 09:00 03/03/19 08:59 02/01/19 08:47 Gabapentin (Neurontin) 600 mg TID ORAL 01/31/19 18:00 03/02/19 17:59 02/01/19 08:47 Heparin Sodium (Porcine) (Heparin 5000 units/ml) 5,000 units EVERY 12 HOURS SUBQ 01/31/19 21:00 03/02/19 20:59 01/31/19 21:12 Metoprolol Tartrate (Lopressor) 25 mg EVERY 12 HOURS ORAL 01/31/19 21:00 03/02/19 20:59 02/01/19 08:49 Morphine Sulfate (Morphine Sulfate) 2 mg Q4H PRN IVP Severe Pain (Pain Scale 7-10) 01/31/19 15:30 02/07/19 15:29 02/01/19 06:33 Nitroglycerin (Ntg) 0.4 mg Q5MIN X 3 DOSES PRN SL Prn Chest Pain 01/31/19 15:15 03/02/19 15:14 Ondansetron HCl (Zofran) 4 mg Q6H PRN IVP Nausea & Vomiting 01/31/19 15:15 03/02/19 15:14 Polyethylene Glycol (Miralax) 17 gm DAILYPRN PRN ORAL Constipation 01/31/19 15:15 03/02/19 15:14 Sertraline HCl (Zoloft) 50 mg DAILY ORAL 02/01/19 09:00 03/03/19 08:59 02/01/19 08:47 Temazepam (Restoril) 15 mg HSPRN PRN ORAL Insomnia 01/31/19 21:00 02/07/19 20:59 Trazodone HCl (Desyrel) 50 mg BEDTIME ORAL 01/31/19 21:00 03/02/19 20:59 01/31/19 21:07 Assessment/Plan Problem List: (1) ACS (acute coronary syndrome) ICD Codes: I24.9 - Acute ischemic heart disease, unspecified SNOMED: 665264024 (2) CAD (coronary artery disease) ICD Codes: I25.10 - Atherosclerotic heart disease of [place] coronary artery without angina pectoris SNOMED: 26627318 (3) Cirrhosis ICD Codes: K74.60 - Unspecified cirrhosis of liver SNOMED: 34930373 (4) Psychosis ICD Codes: F29 - Unspecified psychosis not due to a substance or known physiological condition SNOMED: 13547986 (5) Hepatitis C ICD Codes: B19.20 - Unspecified viral hepatitis C without hepatic coma SNOMED: 43959720 (6) History of CVA (cerebrovascular accident) ICD Codes: Z86.73 - Personal history of transient ischemic attack (TIA), and cerebral infarction without residual deficits SNOMED: 306028969 Assessment/Plan serial ekg, troponin Pt had a stress test last year August, which was negative f/u cardiology recommendations low risk for PE, because of hemiparesis, get venous doppler of lower extremities to rule out DVT continue psych meds respiratory treatment titrate fio2 to sat of 92% dvt prophylaxis. Lexy Christiansen MD Feb 01, 2019 10:09
[2019-02-01 12:00] VITALS: BP 108/60
--- NOTE | 2019-02-01 12:30 | Cardiology Progress Note ---
Assessment/Plan Assessment/Plan all trop neg despite more than 36 h of constant cp no ekg abn pt indicate cp worsened by twisting / turning / cough / takign a deep breath but the only thing that takes this pain away is morphine he also indicated being allergic to tylenol , nsaid toradol asa indicating only relief with morphine ekg neg mpi neg 5 mon a go ekg unchanged echo done 1 mon ago normal will not pursuit further consider stopping positive reinforcement for pain relief with morphine [id number] Objective Last 24 Hour Vital Signs Date Time Temp Pulse Resp B/P (MAP) Pulse Ox O2 Delivery O2 Flow Rate FiO2 02/01/19 09:00 Room Air 02/01/19 08:49 61 108/62 02/01/19 08:00 97.9 61 20 108/62 (77) 96 02/01/19 08:00 58 02/01/19 04:00 64 02/01/19 04:00 97.6 58 19 107/57 (74) 100 02/01/19 00:00 59 02/01/19 00:00 98.6 66 20 132/71 (91) 99 01/31/19 21:08 66 126/62 01/31/19 21:00 Room Air 01/31/19 20:00 64 01/31/19 20:00 98.0 72 19 112/64 (80) 100 01/31/19 16:40 Nasal Cannula 2.0 01/31/19 16:08 98.2 57 17 113/59 97 Nasal Cannula 2.0 01/31/19 14:49 98.1 55 15 105/57 96 Nasal Cannula 2.0 01/31/19 13:27 98.2 01/31/19 12:44 68 18 Nasal Cannula 2.0 01/31/19 12:44 98.2 68 18 119/59 97 Nasal Cannula 2.0 Intake and Output 01/31/19 02/01/19 19:00 07:00 Intake Total 1000 ml Balance 1000 ml Intake IV Total 1000 ml Laboratory Tests Test 01/31/19 12:35 01/31/19 14:20 02/01/19 06:57 White Blood Count 9.3 K/UL (4.8-10.8) 6.5 K/UL (4.8-10.8) Red Blood Count 5.97 M/UL (4.70-6.10) 5.46 M/UL (4.70-6.10) Hemoglobin 15.8 G/DL (14.2-18.0) 14.8 G/DL (14.2-18.0) Hematocrit 50.4 % (42.0-52.0) 46.8 % (42.0-52.0) Mean Corpuscular Volume 84 FL (80-99) 86 FL (80-99) Mean Corpuscular Hemoglobin 26.5 PG (27.0-31.0) L 27.1 PG (27.0-31.0) Mean Corpuscular Hemoglobin Concent 31.3 G/DL (32.0-36.0) L 31.6 G/DL (32.0-36.0) L Red Cell Distribution Width 15.5 % (11.6-14.8) H 15.5 % (11.6-14.8) H Platelet Count 128 K/UL (150-450) L 98 K/UL (150-450) L Mean Platelet Volume 10.8 FL (6.5-10.1) H 9.8 FL (6.5-10.1) Neutrophils (%) (Auto) 67.9 % (45.0-75.0) % (45.0-75.0) Lymphocytes (%) (Auto) 21.0 % (20.0-45.0) % (20.0-45.0) Monocytes (%) (Auto) 7.8 % (1.0-10.0) % (1.0-10.0) Eosinophils (%) (Auto) 2.4 % (0.0-3.0) % (0.0-3.0) Basophils (%) (Auto) 1.0 % (0.0-2.0) % (0.0-2.0) Sodium Level 141 MMOL/L (136-145) 143 MMOL/L (136-145) Potassium Level 4.1 MMOL/L (3.5-5.1) 3.8 MMOL/L (3.5-5.1) Chloride Level 108 MMOL/L (98-107) H 108 MMOL/L (98-107) H Carbon Dioxide Level 24 MMOL/L (21-32) 23 MMOL/L (21-32) Anion Gap 9 mmol/L (5-15) 12 mmol/L (5-15) Blood Urea Nitrogen 13 mg/dL (7-18) 15 mg/dL (7-18) Creatinine 0.9 MG/DL (0.55-1.30) 0.9 MG/DL (0.55-1.30) Estimat Glomerular Filtration Rate > 60 mL/min (>60) > 60 mL/min (>60) Glucose Level 76 MG/DL (74-106) 89 MG/DL (74-106) Calcium Level 8.7 MG/DL (8.5-10.1) 8.7 MG/DL (8.5-10.1) Total Bilirubin 0.4 MG/DL (0.2-1.0) Aspartate Amino Transf (AST/SGOT) 70 U/L (15-37) H Alanine Aminotransferase (ALT/SGPT) 83 U/L (12-78) H Alkaline Phosphatase 81 U/L (46-116) Troponin I 0.008 ng/mL (0.000-0.056) 0.022 ng/mL (0.000-0.056) Pro-B-Type Natriuretic Peptide 61 pg/mL (0-125) Total Protein 7.6 G/DL (6.4-8.2) Albumin 3.1 G/DL (3.4-5.0) L Globulin 4.5 g/dL Albumin/Globulin Ratio 0.7 (1.0-2.7) L Differential Total Cells Counted 100 Neutrophils % (Manual) 59 % (45-75) Lymphocytes % (Manual) 29 % (20-45) Monocytes % (Manual) 9 % (1-10) Eosinophils % (Manual) 3 % (0-3) Basophils % (Manual) 0 % (0-2) Band Neutrophils 0 % (0-8) Platelet Estimate Decreased L Platelet Morphology Normal Anisocytosis 1+ Prothrombin Time 11.9 SEC (9.30-11.50) H Prothromb Time International Ratio 1.1 (0.9-1.1) Activated Partial Thromboplast Time 32 SEC (23-33) C-Reactive Protein, Quantitative 0.7 mg/dL (0.00-0.90) Triglycerides Level 61 MG/DL (30-150) Cholesterol Level 80 MG/DL (< 200) LDL Cholesterol 53 mg/dL (<100) HDL Cholesterol 24 MG/DL (40-60) L Cholesterol/HDL Ratio 3.3 (3.3-4.4) Thyroid Stimulating Hormone (TSH) 1.534 uiU/mL (0.358-3.740) Brian Mejía MD Feb 01, 2019 12:30
--- NOTE | 2019-02-01 14:35 | General Progress Note ---
Assessment/Plan Problem List: (1) Psychosis ICD Codes: F29 - Unspecified psychosis not due to a substance or known physiological condition SNOMED: 93931299 (2) History of CVA (cerebrovascular accident) ICD Codes: Z86.73 - Personal history of transient ischemic attack (TIA), and cerebral infarction without residual deficits SNOMED: 833945823 (3) Cirrhosis ICD Codes: K74.60 - Unspecified cirrhosis of liver SNOMED: 93325012 (4) Hepatitis C ICD Codes: B19.20 - Unspecified viral hepatitis C without hepatic coma SNOMED: 23334732 (5) ACS (acute coronary syndrome) ICD Codes: I24.9 - Acute ischemic heart disease, unspecified SNOMED: 750530894 Status: unchanged Assessment/Plan pt diet pain control cardio f/u cbc bmp am Subjective Constitutional: Reports: weakness Allergies: Coded Allergies: ACETAMINOPHEN (Verified Allergy, Unknown, 08/28/18) ASPIRIN (Verified Allergy, Unknown, 08/28/18) KETOROLAC (Verified Allergy, Unknown, 08/28/18) NSAIDS (NON-STEROIDAL ANTI-INFLAMMA (Verified Allergy, Unknown, 09/09/18) All Systems: reviewed and negative except above Subjective sl chest pain, no sob, Objective Last 24 Hour Vital Signs Date Time Temp Pulse Resp B/P (MAP) Pulse Ox O2 Delivery O2 Flow Rate FiO2 02/01/19 12:00 98.1 59 20 108/60 (76) 98 02/01/19 12:00 59 02/01/19 09:00 Room Air 02/01/19 08:49 61 108/62 02/01/19 08:00 97.9 61 20 108/62 (77) 96 02/01/19 08:00 58 02/01/19 04:00 64 02/01/19 04:00 97.6 58 19 107/57 (74) 100 02/01/19 00:00 59 02/01/19 00:00 98.6 66 20 132/71 (91) 99 01/31/19 21:08 66 126/62 01/31/19 21:00 Room Air 01/31/19 20:00 64 01/31/19 20:00 98.0 72 19 112/64 (80) 100 01/31/19 16:40 Nasal Cannula 2.0 01/31/19 16:08 98.2 57 17 113/59 97 Nasal Cannula 2.0 01/31/19 14:49 98.1 55 15 105/57 96 Nasal Cannula 2.0 Intake and Output 01/31/19 02/01/19 19:00 07:00 Intake Total 1000 ml Balance 1000 ml Intake IV Total 1000 ml Laboratory Tests 02/01/19 06:57: White Blood Count 6.5, Red Blood Count 5.46, Hemoglobin 14.8, Hematocrit 46.8, Mean Corpuscular Volume 86, Mean Corpuscular Hemoglobin 27.1, Mean Corpuscular Hemoglobin Concent 31.6L, Red Cell Distribution Width 15.5H, Platelet Count 98L , Mean Platelet Volume 9.8, Neutrophils (%) (Auto) , Lymphocytes (%) (Auto) , Monocytes (%) (Auto) , Eosinophils (%) (Auto) , Basophils (%) (Auto) , Differential Total Cells Counted 100, Neutrophils % (Manual) 59, Lymphocytes % ( Manual) 29, Monocytes % (Manual) 9, Eosinophils % (Manual) 3, Basophils % ( Manual) 0, Band Neutrophils 0, Platelet Estimate DecreasedL, Platelet Morphology Normal, Anisocytosis 1+, Prothrombin Time 11.9H, Prothromb Time International Ratio 1.1, Activated Partial Thromboplast Time 32, Sodium Level 143, Potassium Level 3.8, Chloride Level 108H, Carbon Dioxide Level 23, Anion Gap 12, Blood Urea Nitrogen 15, Creatinine 0.9, Estimat Glomerular Filtration Rate > 60, Glucose Level 89, Calcium Level 8.7, Troponin I 0.022, C-Reactive Protein, Quantitative 0.7, Triglycerides Level 61, Cholesterol Level 80, LDL Cholesterol 53, HDL Cholesterol 24L, Cholesterol/HDL Ratio 3.3, Thyroid Stimulating Hormone (TSH) 1.534 Height (Feet): 5 Height (Inches): 11.00 Weight (Pounds): 264 General Appearance: lethargic EENT: normal ENT inspection Neck: normal alignment Cardiovascular: normal peripheral pulses, normal rate, regular rhythm Respiratory/Chest: chest wall non-tender, lungs clear, normal breath sounds Abdomen: normal bowel sounds, non tender, soft Extremities: normal inspection Edema: no edema noted Arm (L), no edema noted Arm (R), no edema noted Leg (L), no edema noted Leg (R), no edema noted Pedal (L), no edema noted Pedal (R), no edema noted Generalized Neurologic: responsive, motor weakness Skin: normal pigmentation, warm/dry Roberto Georges DO Feb 01, 2019 14:35
--- NOTE | 2019-02-01 15:40 | Cardiology Report ---
APPROVED REPORT EKG Measurement Heart [id number] Normal sinus rhythm Left axis deviation Cannot rule out Inferior infarct, age undetermined Anterior infarct, age undetermined Abnormal ECG
[2019-02-01 16:00] VITALS: BP 113/57
--- NOTE | 2019-02-01 16:48 | NUR ---
P.T NOTE: P.T EVALUATION COMPLETED. PATIENT IS ALREADY AT BASELINE FUNCTION THEREFORE NOT A CANDIDATE FOR SKILLED P.T SERVICES. THANK YOU FOR THIS REFERRAL.
--- NOTE | 2019-02-01 19:32 | NUR ---
HAND-OFF: Report given to ADELE Diggs.Endorsed plan of care.
--- NOTE | 2019-02-01 19:40 | NUR ---
Received report from Ashkan ANGULO. Pt was resting in the bed. radiographer cardiac catheterization reattached back to the pt. No acute distress noted. AO x2 calm and comfortable. Bed is in the lowest position and call light is within reach. Bed alarm is on. Will continue to follow the plan of care.
[2019-02-01 20:00] VITALS: BP 110/58
--- NOTE | 2019-02-01 21:00 | Consultation ---
DATE OF CONSULTATION: CONSULTING PHYSICIAN: Brian Mejía M.D. REFERRING PHYSICIANS: 1. Roberto Georges D.O. 2. Lexy Christiansen M.D. REASON FOR REFERRAL: Chest pain. HISTORY OF PRESENT ILLNESS: This is a 53-year-old gentleman who has multiple hospitalizations here at apparently presented to the hospital because of chest pain since yesterday caused a crushing sensation on the left side of the chest. The only thing that relieves the pain is morphine. He indicates that moving, twisting, turning, coughing, taking a deep breath does make the pain worse. He has mild shortness of breath. There is no PND. Uses one pillow with head of the bed up at night. No dizziness or lightheadedness. No heart pounding or palpitation. Nonambulatory is basically in bed most of the time. He has had a number of admissions here at [facility]. There are some records in the chart from hospitalization at [facility]. He carries a diagnosis of COPD exacerbation, bronchitis, abdominal pain, prostatic hypertrophy, systemic hypertension, constipation, schizophrenia, hepatitis C, history of CVA, gastroesophageal reflux disease, polyneuropathy, and reported history of cirrhosis, history of rheumatic fever in 1990, history of CVA on the left side. He has a history of psychosis, history of diabetes mellitus, hypertension, is not ambulatory. ALLERGIES: He is allergic to aspirin, Toradol, nonsteroidals and Tylenol. SOCIAL HISTORY: He denies smoking or drinking. He lives in a convalescent facility. Denies any drug use. REVIEW OF SYSTEMS: GASTROINTESTINAL: He denies. GENITOURINARY: He denies. CONSTITUTIONAL: He denies. NEUROLOGICAL: He denies except for left-sided paralysis. CARDIAC: Review of systems as mentioned in history of present illness. PHYSICAL EXAMINATION: GENERAL: Shows middle-aged overweight gentleman, in no apparent distress. NECK: Supple. No jugular venous distention. No abdominojugular reflux noted. LUNGS: Clear to auscultation and percussion. CARDIAC: S1 is normal. S2 is normal. Regular rate and rhythm. No heaves or thrills noted. ABDOMEN: Soft, obese, positive bowel sounds. Nontender. EXTREMITIES: There is no clubbing, cyanosis, or edema. NEUROLOGICAL: He is awake and alert. He moves right-sided extremities left-sided not much. LABORATORY AND DIAGNOSTIC DATA: White count of 6.5, hemoglobin 14.8, and platelet count of 98,000. He has had levels between 70 and 128,000 for platelets. Sodium 143, potassium 3.8, chloride 106, bicarb 23, BUN of 15, creatinine 0.9, glucose of 89, calcium is 8.7, cardiac enzymes 2 sets are negative so far. CRP of 0.9, total cholesterol is 8 with LDL of 53, HDL of 24, TSH of 1.53. Coags, INR 1.1, PTT of 32. X-rays, he had a chest x-ray performed yesterday when he presented to the emergency room that shows left basal atelectasis. No acute process otherwise. His last echocardiogram was done approximately 1 month ago here at [place] showing technically difficult study. No wall motion to the extent visualized. No significant valvular regurgitation. He does have moderate aortic insufficiency. Myocardial perfusion imaging was last performed in August 2018 showed ejection fraction of 73%. No evidence of myocardial ischemia. There was a hypoperfusion in the inferior wall, which was felt to be related to diaphragmatic attenuation versus infarct. No evidence of ischemia. ASSESSMENT AND PLAN: 1. Atypical chest pains. 2. History of CVA. 3. History of rheumatic fever. 4. History of possible cirrhosis. 5. History of chronic obstructive pulmonary disease per records. 6. History of obesity. 7. This patient was seen in cardiac consultation. The patient's electrocardiogram was reviewed showing no evidence of acute injury infarct or ischemia. The patient does have some delay in R-wave progression, which may be related to his body habitus more so than anything else and he does have left axis deviation, comes with possible left anterior fascicular block. In direct comparison to EKG of December 2018, this EKG is not changed. This pain is atypical as persistently present yet no evidence of myonecrosis and the only relieving exacerbating factors that the patient seems to indicate as twisting, turning, taking a deep breath and coughing likely makes this musculoskeletal pain, although not able to reproduce on palpation of the chest wall, since there was no electrocardiographic changes the patient has already had an ischemic evaluation approximately 5 months ago. I see no need for further testing. His last echocardiogram was also reviewed and he is obviously indicated that he is allergic to nonsteroidals, aspirin, and Tylenol, which would make him not eligible to receive any other pain medications except what he seems to think as the only relieving factor for his pain, which is morphine that should probably be limited to a certain degree to avoid positive reinforcement for his symptoms. Brian Mejía M.D. DR: Shaila JOB#: [id number] CC:
[2019-02-01] MEDS: TraZODone 50mg tab ORAL SCH (21:05)
[2019-02-02] VITALS: BP 115/59
--- NOTE | 2019-02-02 02:30 | Consultation ---
DATE OF CONSULTATION: 02/01/2019 NOTE: POOR AUDIO CONSULTING PHYSICIAN: Amy Benites M.D. HISTORY OF PRESENT ILLNESS: This is a 53-year-old male patient. The reason why this patient is admitted to the hospital is because he has a number of medical problems. Typically, the patient has acute coronary syndrome. When he came in, he also has chest pain and weakness, so the reason he was admitted to the hospital, he came in from [facility] with substernal chest pain, radiating. The problem with this patient is he has altered mental status, worsened by stress of his medical illness. He has a previous diagnosis of paranoid schizophrenia and he developed shortness of breath and medical problems. He is having some increasing mood lability, and this is why his attending has requested daily psychiatric consultation to help stabilize this patient's mood, prevent further mood lability. Altered mental status is worsened secondary to stress of his medical illness. I saw and assessed this patient at bedside. He is confused and disorganized. Slight agitation, irritability as well as confusion. MEDICAL HISTORY: The patient has a history of coronary artery disease, status post CVA, cirrhosis, hepatitis C. ALLERGIES: He has allergies to Tylenol, aspirin, ketorolac . PSYCHOTROPIC MEDICATIONS ON ADMISSION: This patient is currently on a psychotropic medication regimen consisting of trazodone at a dose of 50 mg at bedtime. He is also on Zoloft at a dose of 50 mg daily. He is also on Neurontin 600 mg 3 times a day and he is also on Abilify 5 mg at bedtime. SUBSTANCE ABUSE HISTORY: This patient denies any history of any drug or alcohol use. SOCIAL HISTORY: The patient lives in [facility]. Financially supported by [facility] and Medicare. PSYCHIATRIC HISTORY: The patient has a history of bipolar 2, rule out paranoid schizophrenia with acute exacerbation. STRENGTHS: He is motivated to get better. He has a place to live. WEAKNESSES: He is impulsive and minimal support system. MENTAL STATUS EXAMINATION: This is a 53-year-old male. His appearance is disheveled. Attitude irritable and agitated. Affect, guarded and restricted. Intellect is poor as he does not know current events and does not know the last four presidents. Mood is depressed and anxious. Motor activity, psychomotor agitation. Attention span is poor. He is able to do serial 7's, spell world backwards. Orientation x4. He is oriented to person, place, time, and situation. Speech is normal volume, slightly psychotic. Thought process, disorganized and illogical. Thought content, denies auditory or visual hallucinations or delusions. Denies suicidal or homicidal ideations. Perception is poor because he has perceptual disturbances. Abstract reasoning is poor. Thought perception is poor because he does not understand proverbs and he has concrete thinking. Insight is poor because he does not recognize he has a psychiatric or medical condition. . Judgment is poor. . Denies suicidal or homicidal ideation. Short-term memory, 3/3 on a 3-word recall long-term memory is intact because he can recall long-term events in his life such as high school that he went to. DIAGNOSIS: Paranoid schizophrenia acute exacerbation. PLAN: Treat depression with trazodone 50 at bedtime, Zoloft 50 mg daily, Neurontin 300 three times a day, Abilify 5 mg at bedtime. Provided him with 20 minutes of cognitive behavioral therapy to help him identify his automatic negative thoughts, help him convert those negative thoughts to more positive thoughts. cognitive behavioral therapy and also help him to have more adaptive behavior pattern. 20 minutes of cognitive behavioral therapy provided. Chart reviewed. Discussed with staff. Seen and assessed at bedside. I would like to thank Dr. Roberto Georges for this interesting consultation. I will be happy to follow this patient with you throughout hospital course. Amy Benites M.D. DR: HERB JOB#: [id number] CC:
[2019-02-02] MEDS: Morphine Sulfate 2mg/ml Inj(IV/IM USE ONLY) IVP PRN ×2 (02:35→07:20)
[2019-02-02 04:00] VITALS: BP 108/56
[2019-02-02 06:41] LABS: HEMATOCRIT 45.5 % (42.0-52.0); HEMOGLOBIN 14.2 G/DL (14.2-18.0); MEAN CORPUSCULAR VOLUME 86 FL (80-99); PLATELET COUNT 88 K/UL (150-450); RED BLOOD COUNT 5.28 M/UL (4.70-6.10); RED CELL DISTRIBUTION WIDTH 15.2 % (11.6-14.8); WHITE BLOOD COUNT 5.8 K/UL (4.8-10.8)
--- NOTE | 2019-02-02 07:17 | NUR ---
NURSE NOTES: Received report from Rubén ANGULO. in the bed resting. cardiac cath rn in place. No acute distress noted. AO x2 calm and comfortable. Bed is in the lowest position, brakes engaged for safety. Call light is within reach. Bed alarm is on. Will continue with the plan of care.
[2019-02-02 07:20] LABS: ANION GAP 10 mmol/L (5-15); BLOOD UREA NITROGEN 14 mg/dL (7-18); CALCIUM 8.6 MG/DL (8.5-10.1); CARBON DIOXIDE 25 MMOL/L (21-32); CHLORIDE 108 MMOL/L (98-107); CREATININE 0.9 MG/DL (0.55-1.30); POTASSIUM 3.9 MMOL/L (3.5-5.1); SODIUM 143 MMOL/L (136-145)
--- NOTE | 2019-02-02 07:24 | NUR ---
HAND-OFF: Report given to Ashkan ANGULO.
[2019-02-02 08:00] VITALS: BP 113/61
[2019-02-02] MEDS: Heparin 5000 units/ml inj SUBQ SCH (09:00)
[2019-02-02] MEDS: Sertraline 50mg tab ORAL SCH (09:04)
[2019-02-02] MEDS: Metoprolol 25mg tab ORAL SCH (09:05)
--- NOTE | 2019-02-02 11:00 | Pulmonology Progress Note ---
Assessment/Plan Problems: (1) ACS (acute coronary syndrome) (2) CAD (coronary artery disease) (3) Cirrhosis (4) Psychosis (5) Hepatitis C (6) History of CVA (cerebrovascular accident) Assessment/Plan all reviewed cardio consult appreciated, morphine stopped as he recommended needs psych f/u symptomatic treatment med/surg Subjective ROS Limited/Unobtainable: No Constitutional: Reports: no symptoms HEENT: Repors: no symptoms Respiratory: Reports: no symptoms Allergies: Coded Allergies: ACETAMINOPHEN (Verified Allergy, Unknown, 08/28/18) ASPIRIN (Verified Allergy, Unknown, 08/28/18) KETOROLAC (Verified Allergy, Unknown, 08/28/18) NSAIDS (NON-STEROIDAL ANTI-INFLAMMA (Verified Allergy, Unknown, 09/09/18) Objective Last 24 Hour Vital Signs Date Time Temp Pulse Resp B/P (MAP) Pulse Ox O2 Delivery O2 Flow Rate FiO2 02/02/19 09:05 66 113/61 02/02/19 09:00 Room Air 02/02/19 08:00 98.0 52 20 113/61 (78) 94 02/02/19 08:00 52 02/02/19 04:00 97.9 59 18 108/56 (73) 94 02/02/19 04:00 51 02/02/19 00:00 56 02/02/19 00:00 98.4 64 18 115/59 (77) 95 02/01/19 21:05 67 110/58 02/01/19 21:00 Room Air 02/01/19 20:00 99.1 67 17 110/58 (75) 95 02/01/19 20:00 64 02/01/19 16:00 69 02/01/19 16:00 98.4 65 20 113/57 (75) 94 02/01/19 12:00 98.1 59 20 108/60 (76) 98 02/01/19 12:00 59 Intake and Output 02/01/19 02/02/19 18:59 06:59 # Voids 3 # Bowel Movements 1 General Appearance: WD/WN HEENT: normocephalic, atraumatic Respiratory/Chest: chest wall non-tender, lungs clear Cardiovascular: normal peripheral pulses, regular rhythm Abdomen: normal bowel sounds Microbiology Date/Time Source Procedure Growth Status 01/31/19 14:05 Nasal Nares MRSA Culture - Final Staphylococcus Aureus - Mrsa Complete 01/31/19 14:05 Rectum VRE Culture - Final Enterococcus Faecalis - Vre Complete 01/31/19 14:05 Rectum - Final NO CARBAPENEM-RESISTANT ENTEROBACTERI... Complete Laboratory Tests 02/02/19 05:10: White Blood Count 5.8, Red Blood Count 5.28, Hemoglobin 14.2, Hematocrit 45.5, Mean Corpuscular Volume 86, Mean Corpuscular Hemoglobin 26.8L, Mean Corpuscular Hemoglobin Concent 31.1L, Red Cell Distribution Width 15.2H, Platelet Count 88L , Mean Platelet Volume 10.0, Neutrophils (%) (Auto) , Lymphocytes (%) (Auto) , Monocytes (%) (Auto) , Eosinophils (%) (Auto) , Basophils (%) (Auto) , Differential Total Cells Counted 100, Neutrophils % (Manual) 55, Lymphocytes % ( Manual) 33, Monocytes % (Manual) 7, Eosinophils % (Manual) 4H, Basophils % ( Manual) 1, Band Neutrophils 0, Platelet Estimate DecreasedL, Platelet Morphology Normal, Anisocytosis 1+, Sodium Level 143, Potassium Level 3.9, Chloride Level 108H, Carbon Dioxide Level 25, Anion Gap 10, Blood Urea Nitrogen 14, Creatinine 0.9, Estimat Glomerular Filtration Rate > 60, Glucose Level 89, Calcium Level 8.6, Troponin I 0.002 Current Medications Medications (Trade) Dose Ordered Sig/Hugo Route PRN Reason Start Time Stop Time Status Last Admin Dose Admin Albuterol/ Ipratropium (Albuterol/ Ipratropium) 3 ml Q4H PRN HHN Shortness of Breath 01/31/19 13:15 02/05/19 13:14 Aripiprazole (Abilify) 5 mg BEDTIME ORAL 01/31/19 21:00 03/02/19 20:59 02/01/19 21:05 Atorvastatin Calcium (Lipitor) 20 mg BEDTIME ORAL 01/31/19 21:00 03/02/19 20:59 02/01/19 21:05 Carisoprodol (Soma) 350 mg Q6H PRN ORAL Muscle spasms 01/31/19 15:30 03/02/19 15:29 Clopidogrel Bisulfate (Plavix) 75 mg DAILY ORAL 02/01/19 09:00 03/03/19 08:59 02/02/19 09:05 Diltiazem HCl (Cardizem) 10 mg EVERY HOUR PRN IV heart rate more than 120BPM 01/31/19 13:15 03/02/19 13:14 Enalaprilat (Vasotec) 2.5 mg Q6H PRN IV sbp more than 160 01/31/19 13:15 03/02/19 13:14 Finasteride (Proscar) 5 mg DAILY ORAL 02/01/19 09:00 03/03/19 08:59 02/02/19 09:04 Gabapentin (Neurontin) 600 mg TID ORAL 01/31/19 18:00 03/02/19 17:59 02/02/19 09:04 Heparin Sodium (Porcine) (Heparin 5000 units/ml) 5,000 units EVERY 12 HOURS SUBQ 01/31/19 21:00 03/02/19 20:59 01/31/19 21:12 Metoprolol Tartrate (Lopressor) 25 mg EVERY 12 HOURS ORAL 01/31/19 21:00 03/02/19 20:59 02/02/19 09:05 Morphine Sulfate (Morphine Sulfate) 2 mg Q4H PRN IVP Severe Pain (Pain Scale 7-10) 01/31/19 15:30 02/07/19 15:29 02/02/19 07:20 Nitroglycerin (Ntg) 0.4 mg Q5MIN X 3 DOSES PRN SL Prn Chest Pain 01/31/19 15:15 03/02/19 15:14 Ondansetron HCl (Zofran) 4 mg Q6H PRN IVP Nausea & Vomiting 01/31/19 15:15 03/02/19 15:14 Polyethylene Glycol (Miralax) 17 gm DAILYPRN PRN ORAL Constipation 01/31/19 15:15 03/02/19 15:14 Sertraline HCl (Zoloft) 50 mg DAILY ORAL 02/01/19 09:00 03/03/19 08:59 02/02/19 09:04 Temazepam (Restoril) 15 mg HSPRN PRN ORAL Insomnia 01/31/19 21:00 02/07/19 20:59 Trazodone HCl (Desyrel) 50 mg BEDTIME ORAL 01/31/19 21:00 03/02/19 20:59 02/01/19 21:05 Lexy Christiansen MD Feb 02, 2019 11:00
[2019-02-02 12:00] VITALS: BP 123/58
--- NOTE | 2019-02-02 14:54 | General Progress Note ---
Assessment/Plan Problem List: (1) Psychosis ICD Codes: F29 - Unspecified psychosis not due to a substance or known physiological condition SNOMED: 20837977 (2) History of CVA (cerebrovascular accident) ICD Codes: Z86.73 - Personal history of transient ischemic attack (TIA), and cerebral infarction without residual deficits SNOMED: 021806420 (3) Cirrhosis ICD Codes: K74.60 - Unspecified cirrhosis of liver SNOMED: 80167163 (4) Hepatitis C ICD Codes: B19.20 - Unspecified viral hepatitis C without hepatic coma SNOMED: 83759146 (5) ACS (acute coronary syndrome) ICD Codes: I24.9 - Acute ischemic heart disease, unspecified SNOMED: 141617500 Status: stable, progressing Assessment/Plan pt diet pain control cardio f/u dc if clear Subjective Constitutional: Reports: weakness Allergies: Coded Allergies: ACETAMINOPHEN (Verified Allergy, Unknown, 08/28/18) ASPIRIN (Verified Allergy, Unknown, 08/28/18) KETOROLAC (Verified Allergy, Unknown, 08/28/18) NSAIDS (NON-STEROIDAL ANTI-INFLAMMA (Verified Allergy, Unknown, 09/09/18) All Systems: reviewed and negative except above Subjective no complaints, Objective Last 24 Hour Vital Signs Date Time Temp Pulse Resp B/P (MAP) Pulse Ox O2 Delivery O2 Flow Rate FiO2 02/02/19 09:05 66 113/61 02/02/19 09:00 Room Air 02/02/19 08:00 98.0 52 20 113/61 (78) 94 02/02/19 08:00 52 02/02/19 04:00 97.9 59 18 108/56 (73) 94 02/02/19 04:00 51 02/02/19 00:00 56 02/02/19 00:00 98.4 64 18 115/59 (77) 95 02/01/19 21:05 67 110/58 02/01/19 21:00 Room Air 02/01/19 20:00 99.1 67 17 110/58 (75) 95 02/01/19 20:00 64 02/01/19 16:00 69 02/01/19 16:00 98.4 65 20 113/57 (75) 94 Intake and Output 02/01/19 02/02/19 19:00 07:00 # Voids 3 # Bowel Movements 1 Laboratory Tests 02/02/19 05:10: White Blood Count 5.8, Red Blood Count 5.28, Hemoglobin 14.2, Hematocrit 45.5, Mean Corpuscular Volume 86, Mean Corpuscular Hemoglobin 26.8L, Mean Corpuscular Hemoglobin Concent 31.1L, Red Cell Distribution Width 15.2H, Platelet Count 88L , Mean Platelet Volume 10.0, Neutrophils (%) (Auto) , Lymphocytes (%) (Auto) , Monocytes (%) (Auto) , Eosinophils (%) (Auto) , Basophils (%) (Auto) , Differential Total Cells Counted 100, Neutrophils % (Manual) 55, Lymphocytes % ( Manual) 33, Monocytes % (Manual) 7, Eosinophils % (Manual) 4H, Basophils % ( Manual) 1, Band Neutrophils 0, Platelet Estimate DecreasedL, Platelet Morphology Normal, Anisocytosis 1+, Sodium Level 143, Potassium Level 3.9, Chloride Level 108H, Carbon Dioxide Level 25, Anion Gap 10, Blood Urea Nitrogen 14, Creatinine 0.9, Estimat Glomerular Filtration Rate > 60, Glucose Level 89, Calcium Level 8.6, Troponin I 0.002 Height (Feet): 5 Height (Inches): 11.00 Weight (Pounds): 263 General Appearance: lethargic EENT: normal ENT inspection Neck: normal alignment Cardiovascular: normal peripheral pulses, normal rate, regular rhythm Respiratory/Chest: chest wall non-tender, lungs clear, normal breath sounds Abdomen: normal bowel sounds, non tender, soft Extremities: normal inspection Edema: no edema noted Arm (L), no edema noted Arm (R), no edema noted Leg (L), no edema noted Leg (R), no edema noted Pedal (L), no edema noted Pedal (R), no edema noted Generalized Neurologic: responsive, motor weakness Skin: normal pigmentation, warm/dry Roberto Georges DO Feb 02, 2019 14:54
--- NOTE | 2019-02-02 15:21 | NUR ---
DISCHARGE PLAN DISCHARGE ORDER NOTED FAXED CLINICALS TO
--- NOTE | 2019-02-02 15:26 | NUR ---
DISCHARGE PLANNED PT. WILL DC TO [facility] 4A SKILLED T- FOR NURSE TO NURSE REPORT [facility] HAS BEEN ARRANGED FOR 1730 CALL MANAGER
[2019-02-02 16:00] VITALS: BP 121/59
--- NOTE | 2019-02-02 16:02 | NUR ---
NURSE NOTES: Spoke to Wiley ANGULO at [facility]. Report given.
--- NOTE | 2019-02-02 17:00 | Progress Note ---
DATE: 02/02/2019 SUBJECTIVE: This is a 53-year-old male patient with acute coronary syndrome. This patient had altered mental status and he has coronary artery disease, status post CVA, cirrhosis, and hepatitis C, which is causing him to have a decline in cognition below his baseline. He also has shortness of breath, which is causing him to have a decline in cognition below his baseline and altered mental status. That is why his attending physician has requested daily psychiatric consultation. MENTAL STATUS EXAMINATION: This is a 53-year-old male. His appearance is disheveled. His attitude is irritable and agitated. Affect, guarded and restricted. Intellect, poor. Mood, depressed and anxious. Motor activity, psychomotor agitation. Attention span is poor. Orientation x2. Speech is low volume. Thought process, disorganized and illogical. The patient's insight and judgment is poor. DIAGNOSIS: Paranoid schizophrenia with acute exacerbation. PLAN: Plan for this patient is to treat this patient with a psychotropic medication regimen consisting of Zoloft 50 mg daily, Neurontin 600 mg three times a day, and also treat this patient with trazodone at a dose of 50 mg nightly, and provide him with 20 minutes of cognitive behavioral therapy to help identify his automatic negative thoughts and to help him convert those negative thoughts to more positive thoughts to reduce depression, anxiety, and suicidality, and help him to have more adaptive behavioral pattern. I will also treat him with Abilify 5 mg nightly. Chart reviewed. Discussed with staff. Seen and assessed in his room. He will continued to be followed by Psychiatry to manage his behavioral problems throughout the hospital course. Amy Benites M.D. DR: AMAN JOB#: [id number] CC:
--- NOTE | 2019-02-02 18:53 | Cardiology Progress Note ---
Assessment/Plan Assessment/Plan 1. Atypical chest pains. 2. History of CVA. 3. History of rheumatic fever. 4. History of possible cirrhosis. 5. History of chronic obstructive pulmonary disease per records. 6. History of obesity. all trop neg despite more than 36 h of constant cp no ekg abn pt indicate cp worsened by twisting / turning / cough / takign a deep breath but the only thing that takes this pain away is morphine he also indicated being allergic to tylenol , nsaid toradol asa indicating only relief with morphine mpi neg 5 mon a go ekg unchanged echo done 1 mon ago normal will not pursuit further ok to dc Subjective Cardiovascular: Reports: chest pain - better Respiratory: Denies: shortness of breath Gastrointestinal/Abdominal: Denies: abdominal pain Genitourinary: Denies: burning Objective Last 24 Hour Vital Signs Date Time Temp Pulse Resp B/P (MAP) Pulse Ox O2 Delivery O2 Flow Rate FiO2 02/02/19 16:00 98.7 58 20 121/59 (79) 94 02/02/19 16:00 58 02/02/19 12:00 56 02/02/19 12:00 98.8 56 20 123/58 (79) 95 02/02/19 09:05 66 113/61 02/02/19 09:00 Room Air 02/02/19 08:00 98.0 52 20 113/61 (78) 94 02/02/19 08:00 52 02/02/19 04:00 97.9 59 18 108/56 (73) 94 02/02/19 04:00 51 02/02/19 00:00 56 02/02/19 00:00 98.4 64 18 115/59 (77) 95 02/01/19 21:05 67 110/58 02/01/19 21:00 Room Air 02/01/19 20:00 99.1 67 17 110/58 (75) 95 02/01/19 20:00 64 General Appearance: no apparent distress, alert Neck: supple Cardiovascular: normal rate Respiratory/Chest: lungs clear Abdomen: normal bowel sounds, non tender, soft Extremities: no swelling Intake and Output 02/01/19 02/02/19 19:00 07:00 # Voids 3 # Bowel Movements 1 Laboratory Tests Test 02/02/19 05:10 White Blood Count 5.8 K/UL (4.8-10.8) Red Blood Count 5.28 M/UL (4.70-6.10) Hemoglobin 14.2 G/DL (14.2-18.0) Hematocrit 45.5 % (42.0-52.0) Mean Corpuscular Volume 86 FL (80-99) Mean Corpuscular Hemoglobin 26.8 PG (27.0-31.0) L Mean Corpuscular Hemoglobin Concent 31.1 G/DL (32.0-36.0) L Red Cell Distribution Width 15.2 % (11.6-14.8) H Platelet Count 88 K/UL (150-450) L Mean Platelet Volume 10.0 FL (6.5-10.1) Neutrophils (%) (Auto) % (45.0-75.0) Lymphocytes (%) (Auto) % (20.0-45.0) Monocytes (%) (Auto) % (1.0-10.0) Eosinophils (%) (Auto) % (0.0-3.0) Basophils (%) (Auto) % (0.0-2.0) Differential Total Cells Counted 100 Neutrophils % (Manual) 55 % (45-75) Lymphocytes % (Manual) 33 % (20-45) Monocytes % (Manual) 7 % (1-10) Eosinophils % (Manual) 4 % (0-3) H Basophils % (Manual) 1 % (0-2) Band Neutrophils 0 % (0-8) Platelet Estimate Decreased L Platelet Morphology Normal Anisocytosis 1+ Sodium Level 143 MMOL/L (136-145) Potassium Level 3.9 MMOL/L (3.5-5.1) Chloride Level 108 MMOL/L (98-107) H Carbon Dioxide Level 25 MMOL/L (21-32) Anion Gap 10 mmol/L (5-15) Blood Urea Nitrogen 14 mg/dL (7-18) Creatinine 0.9 MG/DL (0.55-1.30) Estimat Glomerular Filtration Rate > 60 mL/min (>60) Glucose Level 89 MG/DL (74-106) Calcium Level 8.6 MG/DL (8.5-10.1) Troponin I 0.002 ng/mL (0.000-0.056) Microbiology Date/Time Source Procedure Growth Status 01/31/19 14:05 Nasal Nares MRSA Culture - Final Staphylococcus Aureus - Mrsa Complete 01/31/19 14:05 Rectum VRE Culture - Final Enterococcus Faecalis - Vre Complete 01/31/19 14:05 Rectum - Final NO CARBAPENEM-RESISTANT ENTEROBACTERI... Complete Brian Mjeía MD Feb 02, 2019 18:53
--- NOTE | 2019-02-02 19:59 | NUR ---
NURSE NOTES: Patient discharged to [facility] via ambulance. Patient have no belongings. IV removed, no infiltration, redness or bleeding noted. telemetry monitor removed. Report given to ambulance personnel. All discharge papers signed by patient and with patient.
--- NOTE | 2019-02-03 08:31 | Discharge Summary ---
Discharge Summary Discharge Summary _ DATE OF ADMISSION: 01/31/2019 DATE OF DISCHARGE: 02/02/2019 DISCHARGED BY: Dr. Roberto eGorges CONSULTANTS: Dr. Brian Christiansen BRIEF HOSPITAL COURSE: Patient is a 53-year-old male, from [facility], presented to ED due to dull chest pain for 2 days, substernal in location, and radiating to the left arm. There was no accompanying dizziness, no loss of consciousness. Patient was feeling slightly weak. He was given nitroglycerin without relief. He denied shortness of breath, denied fever or chills. He has medical history significant for coronary artery disease, CVA, hepatitis C, liver cirrhosis and psychosis. On evaluation at ED, vital signs were stable. Blood work did not show any leukocytosis, hemoglobin and hematocrit were stable. Initial troponin was negative. EKG showed normal sinus rhythm, with no acute ischemic changes. Chest x-ray showed no acute process. Due to his risk factors, he was admitted for evaluation of ACS. He was admitted to telemetry. Cardiac enzymes were monitored. Patient had low risk for PE due to hemiparesis. He was given heparin for DVT prophylaxis. He was continued on fdc medications. Cardiac evaluation was done. Patient had crushing sensation on the left side of the chest. Only thing that relieves the pain was morphine. He indicated that moving, twisting and turning or coughing or taking a deep breath made it worse. There was no PND. Troponin levels were negative x 3. CRP 0.9. Total cholesterol 80, LDL 53, HDL 24. Thyroid was normal. EKG showed no evidence of acute injury, infarct or ischemia. Patient had delay in R wave progression, which may be related to his body habitus, he does have left axis deviation with possible left anterior fascicular block. In direct comparison to EKG on December 2018, EKG was not changed. He had persistent atypical chest pain with no evidence of myonecrosis. Exacerbating factors including twisting, turning, taking a deep breath or coughing likely makes symptoms musculoskeletal pain, although pain was not reproducible on palpation of the chest wall. Per sewer and drain technician recommendation, since there was no electrocardiographic changes seen and ischemic evaluation was done approximately 5 months ago. There was no further testing needed. Last echocardiogram was also reviewed. Patient is allergic to NSAIDs, aspirin and Tylenol and the only relieving factor for his pain was morphine. It was advised that morphine be limited to a certain degree to avoid positive reinforcement of his symptoms. Psychiatric evaluation was done. Patient was diagnosed with paranoid schizophrenia with acute exacerbation. He was given trazodone, Zoloft, Neurontin and Abilify. He was given PT mobility. He was eventually discharged back to [facility]. FINAL DIAGNOSES: Atypical chest pain possibly musculoskeletal Coronary artery disease Paranoid schizophrenia with acute exacerbation Hepatitis C Liver cirrhosis Old CVA Psychosis History of rheumatic fever COPD Obesity DISPOSITION: Patient was discharged to a SNF. I have been assigned to complete a discharge summary on this account, I was not involved with the patient's management. Elba Ortiz NP Feb 03, 2019 08:31
--- NOTE | 2019-02-07 15:03 | Physician Query ---
--------- THIS DOCUMENT IS A PERMANENT PART OF THE MEDICAL RECORD --------- PLEASE COMPLETE THE DOCUMENT BEFORE SIGNING Dear Dr. 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 Questions asked do not imply particular answer is desired or expected. We greatly appreciate your clarification on this issue. Clinical Documentation States: BRIEF HOSPITAL COURSE: Patient is a 53-year-old male, from [facility], presented to ED due to dull chest pain for 2 days, substernal in location, and radiating to the left arm. There was no accompanying dizziness, no loss of consciousness. Patient was feeling slightly weak. He was given nitroglycerin without relief. He denied shortness of breath, denied fever or chills. He has medical history significant for coronary artery disease, CVA, hepatitis C, liver cirrhosis and psychosis. Cardiac evaluation was done. Patient had crushing sensation on the left side of the chest. Only thing that relieves the pain was morphine. He indicated that moving, twisting and turning or coughing or taking a deep breath made it worse. There was no PND. Troponin levels were negative x 3. CRP 0.9. Total cholesterol 80, LDL 53, HDL 24. Thyroid was normal. EKG showed no evidence of acute injury, infarct or ischemia. Patient had delay in R wave progression, which may be related to his body habitus, he does have left axis deviation with possible left anterior fascicular block. In direct comparison to EKG on December 2018, EKG was not changed. He had persistent atypical chest pain with no evidence of myonecrosis. Please document the suspected etiology of Chest Pain: a.Type: []Cardiac []Non-cardiac []Unspecified b.Etiology - cardiac [] Aortic dissection []Mitral valve prolapsed [] Acute myocardial infarction []Spasm of coronary arteries [] Coronary Artery Disease []Pericarditis c.Etiology - non-cardiac [] Anxiety []Pleurisy [] Cancer []Pneumonia, type [] Costochondritis []Pneumothorax [] GERD/Esophagitis []Pulmonary embolism [] Unable to determine []Other: LUCIANO KEATING M.D. DATE & TIME [facility]
== END 2019-02-02 19:15 | DRG 313 ==
LOC: EDBD 12:22 → EMR 13:15 → 2E 13:20 → EDBEDREQ 14:31 → 2E 02-01 18:51
DX: R07.89 Other chest pain (principal); F20.0 Paranoid schizophrenia; I69.359 Hemiplegia and hemiparesis following cerebral infarction affecting unspecified side; I10 Essential (primary) hypertension; I25.10 Atherosclerotic heart disease of native coronary artery without angina pectoris; B19.20 Unspecified viral hepatitis C without hepatic coma; K74.60 Unspecified cirrhosis of liver; J44.9 Chronic obstructive pulmonary disease, unspecified; E66.9 Obesity, unspecified; Z88.6 Allergy status to analgesic agent; Z88.8 Allergy status to other drugs, medicaments and biological substances
CPT/HCPCS: 36415; 71045; 80048; 80053; 80061; 83880; 84443; 84484; 85007; 85025; 85610; 85730; 86140; 87081; 93005; 96374; 99285

== ENCOUNTER 2019-04-28 12:04 | Emergency (ER) | payer MEDICARE, OTHER ==
[~2019-04-28] VITALS: Ht 172.7 cm; Wt 136.1 kg
--- NOTE | 2019-04-28 12:09 | NUR ---
ED Nurse Note: PT BROUGHT IN TO ER TODAY BY Markus MENON. PT C/O CHEST PAIN, 8/10 X 20 MINUTES AGO AFTER SMOKING A CIGARETTE. PT STATES PAIN IS NONRADIATING AND EXACERBATED BY DEEP INHALATION. ON ASSESSMENT, PT IS NORMAL SINUS RHYTHM ON LPN MEDICAL ASSISTANT, BP: 130/67, AND HR: 61.
[2019-04-28 12:10] VITALS: BP 130/67
--- NOTE | 2019-04-28 12:10 | NUR ---
ED Nurse Note: OF NOTE, PT PRESENTS WITH LEFT SIDED PARALYSIS DUE TO HX OF CVA.
--- NOTE | 2019-04-28 12:12 | NUR ---
ED Nurse Note: SKIN ASSESSMENT: PT PRESENTS WITH NONBLANCHABLE REDNESS TO COCCYX AREA.
[2019-04-28] MEDS ORDERED: METOPROLOL TART25 MG ORAL (12:16)
[2019-04-28] MEDS ORDERED: NITROSTAT0.4 M1 SL (12:16)
[2019-04-28] MEDS ORDERED: DUONEB 0.5-3(2.53 ML HHN (12:16)
[2019-04-28] MEDS ORDERED: MILK OF MA400 MG/51 ORAL (12:16)
--- NOTE | 2019-04-28 12:47 | NUR ---
ED Nurse Note: XRAY AT BEDSIDE.
--- NOTE | 2019-04-28 12:55 | NUR ---
ED Nurse Note: PT REQUESTING MUSA CATHETER INSERTION. PER QUIRINO SIMON TO INSERT MUSA CATHETER. 16F MUSA CATHETER INSERTED USING STERILE TECHNIQUE. MUSA DRAINING CLEAR YELLOW URINE. PT TOLERATED WELL.
[2019-04-28 13:05] LABS: HEMATOCRIT 46.9 % (42.0-52.0); MEAN CORPUSCULAR VOLUME 85 FL (80-99); PLATELET COUNT 94 K/UL (150-450); RED BLOOD COUNT 5.55 M/UL (4.70-6.10); RED CELL DISTRIBUTION WIDTH 15.8 % (11.6-14.8); WHITE BLOOD COUNT 6.2 K/UL (4.8-10.8)
[2019-04-28 13:06] LABS: APPEARANCE,URINE CLEAR; BILIRUBIN, URINE NEGATIVE (NEGATIVE); GLUCOSE, URINE (UA) NEGATIVE (NEGATIVE); KETONES,URINE 1+ (NEGATIVE); LEUKOCYTE ESTERASE ,URINE 1+ (NEGATIVE); NITRITE,URINE NEGATIVE (NEGATIVE); PH,URINE 5 (4.5-8.0); PROTEIN,URINE 1+ (NEGATIVE); UROBILINOGEN,URINE 1 MG/DL (0.0-1.0)
[2019-04-28 13:10] LABS: ANION GAP 8 mmol/L (5-15); BLOOD UREA NITROGEN 19 mg/dL (7-18); CALCIUM 8.9 MG/DL (8.5-10.1); CARBON DIOXIDE 27 MMOL/L (21-32); CHLORIDE 108 MMOL/L (98-107); CREATININE 1.1 MG/DL (0.55-1.30); POTASSIUM 4.3 MMOL/L (3.5-5.1); SODIUM 143 MMOL/L (136-145)
[2019-04-28 13:12] LABS: COLOR,URINE YELLOW
[2019-04-28] MEDS ORDERED: Morphine Sulfate 4mg/ml Inj (IV USE ONLY) IVP ONE ×2 (13:15→14:30)
[2019-04-28 13:22] LABS: ALANINE AMINOTRANSFERASE 112 U/L (12-78); ALBUMIN 3.3 G/DL (3.4-5.0); ALBUMIN/GLOBULIN RATIO 0.7 (1.0-2.7); ALKALINE PHOSPHATASE 82 U/L (46-116); ASPARTATE AMINO TRANSFERASE 89 U/L (15-37); BILIRUBIN,TOTAL 0.6 MG/DL (0.2-1.0); CKMB 0.8 NG/ML (0.0-3.6); CREATINE KINASE 72 U/L (26-308)
--- NOTE | 2019-04-28 13:43 | Diagnostic Imaging Report ---
Indication: Chest pain Technique: One view of the chest Comparison: 01/31/2019 Findings: The lungs and pleural spaces are clear. The heart size is normal. No significant interim change Impression: Negative
--- NOTE | 2019-04-28 14:30 | Emergency Room Report ---
History of Present Illness General Chief Complaint: Chest Pain Source: Patient Present Illness HPI Patient presents long term facility. He complains of chest pain. He denies shortness of breath. He denies fever chills. He denies nausea or vomiting. He denies abdominal pain. He denies recent illness. He has no other complaints. Allergies: Coded Allergies: ACETAMINOPHEN (Verified Allergy, Unknown, 08/28/18) ASPIRIN (Verified Allergy, Unknown, 08/28/18) KETOROLAC (Verified Allergy, Unknown, 08/28/18) NSAIDS (NON-STEROIDAL ANTI-INFLAMMA (Verified Allergy, Unknown, 09/09/18) Patient History Past Medical History: see triage record, DM, HTN, CVA/TIA Social History: Denies: smoking, alcohol use, drug use Reviewed Nursing Documentation: PMH: Agreed; PSxH: Agreed Nursing Documentation-PMH Hx Cardiac Problems: Yes - Stroke 2012 Hx Hypertension: Yes Hx Cancer: No Hx Gastrointestinal Problems: Yes - abdominal pain Hx Dialysis: No - History of kidney stones, UTI, BPH Hx Neurological Problems: Yes Hx Cerebrovascular Accident: Yes - Left sided hemiparesis Hx Weakness: Yes Hx Neurologic Surgery: No Review of Systems All Other Systems: negative except mentioned in HPI Physical Exam Vital Signs Date Time Temp Pulse Resp B/P (MAP) Pulse Ox O2 Delivery O2 Flow Rate FiO2 04/28/19 12:02 98.1 72 16 130/80 (97) 97 Room Air Sp02 EP Interpretation: reviewed, normal General Appearance: no apparent distress, alert, GCS 15, non-toxic Head: normocephalic, atraumatic Eyes: bilateral eye normal inspection, bilateral eye PERRL ENT: hearing grossly normal, normal pharynx, no angioedema, normal voice Neck: full range of motion, supple/symm/no masses Respiratory: chest non-tender, lungs clear, normal breath sounds, no respiratory distress, no retraction, no accessory muscle use, speaking full sentences Cardiovascular #1: regular rate, rhythm, no edema Gastrointestinal: normal bowel sounds, non tender, soft, non-distended, no guarding, no rebound Rectal: deferred Musculoskeletal: normal range of motion, non-tender Neurologic: alert, oriented x3, responsive, speech normal, other - At baseline Psychiatric: judgement/insight normal, memory normal, mood/affect normal, no suicidal/homicidal ideation Skin: warm/dry, well hydrated, other - See RN skin exam Medical Decision Making Diagnostic Impression: Primary Impression: Chest pain ER Course This patient has had multiple recent work-ups for chest pain. Has been seen by cardiology multiple times and undergone extensive cardiac testing. This was most recently 2 months ago. The patient immediately was requesting morphine or Dilaudid on arrival. I suspect this patient is narcotic seeking. I did do a full emergency cardiac work-up to include troponin, EKG, chest x-ray and this was all unremarkable. I did discuss the presentation and work-up with the patient's primary care physician who did not feel that another admission to the hospital was indicated at this time for the same symptoms that of been worked up previously. The primary care physician will manage the patient's pain and acid reflux at the long term facility. The patient was returned to the long term facility. Laboratory Tests Test 04/28/19 12:30 04/28/19 12:38 White Blood Count 6.2 K/UL (4.8-10.8) Red Blood Count 5.55 M/UL (4.70-6.10) Hemoglobin 15.0 G/DL (14.2-18.0) Hematocrit 46.9 % (42.0-52.0) Mean Corpuscular Volume 85 FL (80-99) Mean Corpuscular Hemoglobin 27.1 PG (27.0-31.0) Mean Corpuscular Hemoglobin Concent 32.0 G/DL (32.0-36.0) Red Cell Distribution Width 15.8 % (11.6-14.8) H Platelet Count 94 K/UL (150-450) L Mean Platelet Volume 9.2 FL (6.5-10.1) Neutrophils (%) (Auto) % (45.0-75.0) Lymphocytes (%) (Auto) % (20.0-45.0) Monocytes (%) (Auto) % (1.0-10.0) Eosinophils (%) (Auto) % (0.0-3.0) Basophils (%) (Auto) % (0.0-2.0) Differential Total Cells Counted 100 Neutrophils % (Manual) 65 % (45-75) Lymphocytes % (Manual) 29 % (20-45) Monocytes % (Manual) 6 % (1-10) Eosinophils % (Manual) 0 % (0-3) Basophils % (Manual) 0 % (0-2) Band Neutrophils 0 % (0-8) Platelet Estimate Decreased L Platelet Morphology Normal Anisocytosis 1+ Sodium Level 143 MMOL/L (136-145) Potassium Level 4.3 MMOL/L (3.5-5.1) Chloride Level 108 MMOL/L (98-107) H Carbon Dioxide Level 27 MMOL/L (21-32) Anion Gap 8 mmol/L (5-15) Blood Urea Nitrogen 19 mg/dL (7-18) H Creatinine 1.1 MG/DL (0.55-1.30) Estimate Glomerular Filtration Rate > 60 mL/min (>60) Glucose Level 102 MG/DL (74-106) Calcium Level 8.9 MG/DL (8.5-10.1) Total Bilirubin 0.6 MG/DL (0.2-1.0) Aspartate Amino Transferase (AST) 89 U/L (15-37) H Alanine Aminotransferase (ALT) 112 U/L (12-78) H Alkaline Phosphatase 82 U/L (46-116) Total Creatine Kinase 72 U/L (26-308) Creatine Kinase MB 0.8 NG/ML (0.0-3.6) Creatine Kinase MB Relative Index 1.1 Troponin I 0.000 ng/mL (0.000-0.056) Total Protein 8.0 G/DL (6.4-8.2) Albumin 3.3 G/DL (3.4-5.0) L Globulin 4.7 g/dL Albumin/Globulin Ratio 0.7 (1.0-2.7) L Urine Color Yellow Urine Appearance Clear Urine pH 5 (4.5-8.0) Urine Specific [place] 1.020 (1.005-1.035) Urine Protein 1+ (NEGATIVE) H Urine Glucose (UA) Negative (NEGATIVE) Urine Ketones 1+ (NEGATIVE) H Urine Blood Negative (NEGATIVE) Urine Nitrite Negative (NEGATIVE) Urine Bilirubin Negative (NEGATIVE) Urine Urobilinogen 1 MG/DL (0.0-1.0) H Urine Leukocyte Esterase 1+ (NEGATIVE) H Urine RBC 0 /HPF (0 - 0) Urine WBC 2-4 /HPF (0 - 0) Urine Squamous Epithelial Cells Occasional /LPF Urine Bacteria Occasional /HPF (NONE) Urine Mucus Few /LPF (NONE/OCC) H Urine Opiates Screen Negative (NEGATIVE) Urine Barbiturates Screen Negative (NEGATIVE) Phencyclidine (PCP) Screen Negative (NEGATIVE) Urine Amphetamines Screen Negative (NEGATIVE) Urine Benzodiazepines Screen Negative (NEGATIVE) Urine Cocaine Screen Negative (NEGATIVE) Urine Marijuana (THC) Screen Negative (NEGATIVE) EKG Diagnostic Results Rate: normal Rhythm: NSR ST Segments: no acute changes Rhythm Strip Diag. Results EP Interpretation: yes Rate: 60's Rhythm: NSR, no PVC's, no ectopy Chest X-Ray Diagnostic Results Chest X-Ray Diagnostic Results : Chest X-Ray Ordered: Yes # of Views/Limited/Complete: 1 View Indication: Chest Pain EP Interpretation: Yes Interpretation: no consolidation, no effusion, no pneumothorax, no acute cardiopulmonary disease Impression: No acute disease Electronically Signed by: Camille Nick DO Last Vital Signs Date Time Temp Pulse Resp B/P (MAP) Pulse Ox O2 Delivery O2 Flow Rate FiO2 04/28/19 12:10 98.2 61 12 130/67 98 Room Air Disposition: XFER SNF Condition: Stable Referrals: Dileep Turcios MD (PCP) Patient Instructions: Nonspecific Chest Pain Camille Nick DO Apr 28, 2019 14:30
--- NOTE | 2019-04-28 14:44 | NUR ---
ED Nurse Note: JEFF MENON CALLED FOR PT REPORT. REPORT GIVEN TO ADELE CONN. PER RN, FACILITY READY TO ACCEPT. ETA FOR TRANSPORT, [id number].
--- NOTE | 2019-04-28 15:39 | NUR ---
ED Nurse Note: [facility] AT BEDSIDE FOR PT TRANSFER. REPORT GIVEN TO EMS. PT TAKEN BACK TO [facility] VIA AMBULANCE WITH ALL BELONGINGS ACCOMPANIED BY EMS. VSS.
[2019-04-28 15:40] VITALS: BP 124/68
--- NOTE | 2019-05-01 13:53 | Cardiology Report ---
APPROVED REPORT EKG Measurement Heart [id number] Normal sinus rhythm Left axis deviation Anteroseptal infarct, age undetermined Abnormal ECG
== END 2019-04-28 15:47 ==
LOC: EDBD 12:04 → EMR 12:30
DX: R07.9 Chest pain, unspecified (principal); I10 Essential (primary) hypertension; Z88.6 Allergy status to analgesic agent; E11.9 Type 2 diabetes mellitus without complications; Z86.73 Personal history of transient ischemic attack (TIA), and cerebral infarction without residual deficits; I69.354 Hemiplegia and hemiparesis following cerebral infarction affecting left non-dominant side
CPT/HCPCS: 36415; 71045; 80053; 80307; 81003; 82550; 82553; 84484; 85007; 85025; 93005; 96374; 96375; 96376; 99284; J2270; S0028

== ENCOUNTER 2019-05-04 11:43 | Emergency (ER) | payer MEDICARE, OTHER ==
[~2019-05-04] VITALS: Ht 172.7 cm; Wt 86.2 kg
[~2019-05-04 11:43] MED LIST changes: +DUONEB 0.5-3(2.53 ML HHN; +MILK OF MA400 MG/51 ORAL; +NITROSTAT0.4 M1 SL
[2019-05-04 11:57] VITALS: BP 122/64
--- NOTE | 2019-05-04 11:58 | NUR ---
ED Nurse Note: Patient presents to ER due to [place] due to RLQ abdominal pain that radiates to the back and burning pain with urination for the past 3 days. Reports no fever, chills or N/V. Patient states 'feels like kidney stone' Patient awake, alert, oriented x 4. Regular, unlabored breathing noted. No facial grimacing or guarding noted. Placed patient on quality assurance monitor final, no ectopy noted. Bed in lowest position
[2019-05-04] MEDS ORDERED: BACLOFEN10 MG ORAL (12:01)
--- NOTE | 2019-05-04 12:01 | NUR ---
ED Nurse Note: Report given to Giovanny Hagen RN.
[2019-05-04] MEDS ORDERED: BISCOLAX10 MG RC (12:09)
[2019-05-04 12:37] LABS: APPEARANCE,URINE CLEAR; BILIRUBIN, URINE NEGATIVE (NEGATIVE); GLUCOSE, URINE (UA) NEGATIVE (NEGATIVE); KETONES,URINE NEGATIVE (NEGATIVE); LEUKOCYTE ESTERASE ,URINE 3+ (NEGATIVE); NITRITE,URINE POSITIVE (NEGATIVE); PH,URINE 7 (4.5-8.0); PROTEIN,URINE NEGATIVE (NEGATIVE); UROBILINOGEN,URINE 1 MG/DL (0.0-1.0)
[2019-05-04 12:38] LABS: COLOR,URINE YELLOW
--- NOTE | 2019-05-04 13:06 | NUR ---
ED Nurse Note: Pt went down to CT scan in stable condition.
--- NOTE | 2019-05-04 13:18 | NUR ---
ED Nurse Note: pt came back from CT scan in stable condition.
--- NOTE | 2019-05-04 13:25 | NUR ---
ED Nurse Note: called and informed ADELE Leigh about pt's return.
--- NOTE | 2019-05-04 13:39 | NUR ---
ED Nurse Note: transportation arrived. report given to EMS.
[2019-05-04] MEDS ORDERED: CEPHALEXIN500 MG ORAL (13:46)
[2019-05-04 13:49] VITALS: BP 134/75
--- NOTE | 2019-05-04 13:50 | NUR ---
ER DISCHARGE NOTE: Patient is cleared to be discharged per ERMD, pt is aox4, on room air, with stable vital signs. pt was given dc and prescription instructions, pt was able to verbalize understanding, pt id band removed. pt left with EMS and transporation. pt took all belongings. Lu RN at [facility] informed.
--- NOTE | 2019-05-04 14:07 | Diagnostic Imaging Report ---
Indication: Right lower quadrant abdominal pain Technique: Spiral acquisitions obtained through the abdomen and pelvis. No oral contrast utilized, per emergency room physician request No IV contrast utilized, per referring physician request.. Multiplanar reconstructions were generated. Total dose length product 1543.1 mGycm. CTDIvol(s) 26.25 mGy. Dose reduction achieved using automated exposure control Comparison: 08/28/2018 Findings: Lack of enteric contrast limits assessment of the GI tract. The appendix is normal. There is colonic diverticulosis. No evidence of diverticulitis. No free or loculated intraperitoneal gas or fluid is evident. No small bowel distention. Distal esophagus demonstrates a small sliding-type hiatal hernia. The stomach is unremarkable. Duodenum demonstrate a small diverticulum. There are bilateral inguinal hernias which contain only fat. Lack of IV contrast limits assessment of the solid organs. The liver is slightly atrophic, demonstrates surface nodularity consistent with cirrhotic change. No focal abnormality demonstrated. The gallbladder contains a few gallstones. No biliary ductal dilatation. The pancreas is unremarkable. The spleen is enlarged, measuring 17 cm long axis dimension. The adrenals are unremarkable. The kidneys are unremarkable. No renal or ureteral calculi, hydronephrosis, or hydroureter demonstrated. The bladder is empty, contains a Wilson catheter. A few punctate calcifications are seen within the bladder lumen. No retroperitoneal or mesenteric mass or adenopathy. No pelvic mass or adenopathy. Considerable atelectasis is seen in the left lower lobe. Compressive dependent atelectatic changes are also seen at the right lung base. There is also some atelectasis or scarring in the inferior lingula. The bones demonstrate degenerative spondylosis changes Impression: Limited assessment of the GI tract, due to lack of enteric contrast administration No definite acute abnormality Colonic diverticulosis. No evidence of diverticulitis Hepatic surface nodularity, suspicious for cirrhotic change, also previously reported Splenomegaly Cholelithiasis, also previously reported Basilar pulmonary parenchymal atelectatic changes, particularly striking in the left lower lobe Possible small bladder calculi Other findings as noted, including degenerative spondylosis, Wilson catheter, bilateral fat-containing inguinal hernias, duodenal diverticulum Findings previously discussed by phone with Dr. Ruiz The CT scanner at [facility] is accredited by the [employer] and the scans are performed using protocols designed to limit radiation exposure to as low as reasonably achievable to attain images of sufficient resolution adequate for diagnostic evaluation.
--- NOTE | 2019-05-04 14:17 | Emergency Room Report ---
History of Present Illness General Chief Complaint: Abdominal Pain Source: Patient, Medical Record Present Illness HPI Patient presents with complaints of right lower abdominal pain ongoing for the past 2 days Denies any vomiting denies any diarrhea patient requesting a Wilson catheter Denies any other recent trauma denies any fevers pain is 6 out of 10 sharp Allergies: Coded Allergies: ACETAMINOPHEN (Verified Allergy, Unknown, 08/28/18) ASPIRIN (Verified Allergy, Unknown, 08/28/18) KETOROLAC (Verified Allergy, Unknown, 08/28/18) NSAIDS (NON-STEROIDAL ANTI-INFLAMMA (Verified Allergy, Unknown, 09/09/18) Patient History Past Medical History: see triage record Pertinent Family History: none Reviewed Nursing Documentation: PMH: Agreed; PSxH: Agreed Nursing Documentation-PMH Past Medical History: No History, Except For Hx Cardiac Problems: Yes - Stroke 2012 Hx Hypertension: Yes Hx Cancer: No Hx Gastrointestinal Problems: Yes - abdominal pain Hx Dialysis: No - History of kidney stones, UTI, BPH Hx Neurological Problems: Yes Hx Cerebrovascular Accident: Yes - Left sided hemiparesis Hx Weakness: Yes Hx Neurologic Surgery: No Review of Systems All Other Systems: negative except mentioned in HPI Physical Exam Vital Signs Date Time Temp Pulse Resp B/P (MAP) Pulse Ox O2 Delivery O2 Flow Rate FiO2 05/04/19 11:46 99.1 79 16 123/66 (85) 96 Room Air Sp02 EP Interpretation: reviewed, normal General Appearance: well appearing, no apparent distress Head: normocephalic, atraumatic Eyes: bilateral eye PERRL, bilateral eye EOMI ENT: hearing grossly normal, normal pharynx, TMs + canals normal, uvula midline Neck: full range of motion, supple, no meningismus, no bony tend Respiratory: lungs clear, normal breath sounds, no rhonchi, no respiratory distress, no retraction, no accessory muscle use Cardiovascular #1: normal peripheral pulses, regular rate, rhythm, no edema, no gallop, no JVD, no murmur Gastrointestinal: normal bowel sounds, non tender - Subjectively points to the right lower abdomen, soft, no mass, no organomegaly, non-distended, no guarding , no hernia, no pulsatile mass, no rebound Genitourinary: no CVA tenderness Musculoskeletal: other - Paraplegia Neurologic: oriented x3, responsive, sensory intact Psychiatric: mood/affect normal Skin: normal color, no rash, warm/dry, palpation normal Lymphatic: normal inspection, no adenopathy Medical Decision Making Diagnostic Impression: Primary Impression: UTI (urinary tract infection) Additional Impression: abdominal pain ER Course With the history exam and presentation, multiple differentials considered, including but not limited to appendicitis, gastritis, cholecystitis, diverticulitis Patient's urine sample does show evidence of UTI patient has recent blood work and blood test was not repeated however CT imaging was obtained which does not show any acute pathology patient's repeat abdominal exam is soft and benign he feels well and is stable for close follow-up Labs Test 05/04/19 12:30 Urine Color Yellow Urine Appearance Clear Urine pH 7 (4.5-8.0) Urine Specific [place] 1.010 (1.005-1.035) Urine Protein Negative (NEGATIVE) Urine Glucose (UA) Negative (NEGATIVE) Urine Ketones Negative (NEGATIVE) Urine Blood 1+ (NEGATIVE) Urine Nitrite Positive (NEGATIVE) Urine Bilirubin Negative (NEGATIVE) Urine Urobilinogen 1 MG/DL (0.0-1.0) Urine Leukocyte Esterase 3+ (NEGATIVE) Urine RBC 2-4 /HPF (0 - 0) Urine WBC 20-30 /HPF (0 - 0) Urine Squamous Epithelial Cells Occasional /LPF Urine Amorphous Sediment Few /LPF (NONE) Urine Bacteria Moderate /HPF (NONE) CT/MRI/US Diagnostic Results CT/MRI/US Diagnostic Results : Impression CT abdomen pelvisImpression: Limited assessment of the GI tract, due to lack of enteric contrast administration No definite acute abnormality Colonic diverticulosis. No evidence of diverticulitis Hepatic surface nodularity, suspicious for cirrhotic change, also previously reported Splenomegaly Cholelithiasis, also previously reported Basilar pulmonary parenchymal atelectatic changes, particularly striking in the left lower lobe Possible small bladder calculi Other findings as noted, including degenerative spondylosis, Wilson catheter, bilateral fat-containing inguinal hernias, duodenal diverticulum Last Vital Signs Date Time Temp Pulse Resp B/P (MAP) Pulse Ox O2 Delivery O2 Flow Rate FiO2 05/04/19 13:49 98.1 76 19 134/75 99 Room Air Status: improved Disposition: XFER SNF Condition: Improved Scripts Cephalexin* (KEFLEX*) 500 Mg Capsule 500 MG ORAL EVERY 6 HOURS for 7 Days, CAP Prov: Tacho Ruiz DO 05/04/19 Referrals: Dileep Turcios MD (PCP) Patient Instructions: Urinary Tract Infection, [id number], Abdominal Pain, Adult Additional Instructions: Please contact primary physician for orders for removal of the Wilson catheter in the next 1 to 2 days Patient is provided with the discharge instructions notified to follow up with primary doctor in the next 2-3 days otherwise return to the er with any worsening symptoms. Please note that this report is being documented using DRAGON technology. This can lead to erroneous entry secondary to incorrect interpretation by the dictating instrument. Tacho Ruiz DO May 04, 2019 14:17
== END 2019-05-04 13:52 ==
LOC: EDBD 11:43 → EMR 12:15
DX: N39.0 Urinary tract infection, site not specified (principal); R10.31 Right lower quadrant pain; I10 Essential (primary) hypertension; N40.0 Benign prostatic hyperplasia without lower urinary tract symptoms; Z87.442 Personal history of urinary calculi; I69.854 Hemiplegia and hemiparesis following other cerebrovascular disease affecting left non-dominant side; Z79.82 Long term (current) use of aspirin
CPT/HCPCS: 51702; 74176; 81003; 87086; 87181; 96372; 99284; J1170

== ENCOUNTER 2019-10-18 18:55 | Inpatient (IN) | payer MEDICARE, OTHER ==
[~2019-10-18] VITALS: Ht 193 cm; Wt 133.1 kg
[~2019-10-18 18:55] MED LIST changes: +BACLOFEN10 MG ORAL; +BISCOLAX10 MG RC; +CEPHALEXIN500 MG ORAL
--- NOTE | 2019-10-18 19:07 | NUR ---
ED Nurse Note: Patient brought in by ambulance from [facility] with complaints of chest discomfort relieved by three rounds of nitro.
[2019-10-18 19:08] VITALS: BP 118/59
[2019-10-18] MEDS ORDERED: Nitroglycerin 2% oint pkt TOPIC ONE (19:15)
--- NOTE | 2019-10-18 19:22 | Emergency Room Report ---
History of Present Illness General Chief Complaint: Chest Pain Source: EMS Present Illness HPI Disclaimer: Please note that this report is being documented using DRAGON technology. This can lead to erroneous entry secondary to incorrect interpretation by the dictating instrument. HPI: 54-year-old male with a history of CAD, hepatitis C, cirrhosis, CVA, paranoid schizophrenia, COPD and obesity presents for evaluation of chest pain. He presents from his retirement facility. Several hours ago while he was at rest watching television he noted a pressure-like sensation over the left chest. Denies any difficulty breathing. The pain is been constant since onset. No exacerbating or relieving factors. States it is similar to his prior [place]. He did not receive stents. Has been medically managed and compliant with his medications. Denies alcohol or drug abuse. Continues to smoke cigarettes. Did not receive a flu shot this year. Denies fevers, chills, abdominal pain, vomiting, diarrhea. He did not get aspirin because he states he has an angioedema reaction to aspirin, NSAIDs and acetaminophen. Was given nitroglycerin x3 without change in his condition. PMH: Obesity, hepatitis, paranoid schizophrenia, cirrhosis, CVA, COPD PSH: Prostate surgery, laminectomy Allergies: Angioedema reported to acetaminophen, aspirin, NSAIDs Social Hx: Current smoker Allergies: Coded Allergies: ACETAMINOPHEN (Verified Allergy, Unknown, 08/28/18) ASPIRIN (Verified Allergy, Unknown, 08/28/18) KETOROLAC (Verified Allergy, Unknown, 08/28/18) NSAIDS (NON-STEROIDAL ANTI-INFLAMMA (Verified Allergy, Unknown, 09/09/18) Nursing Documentation-PMH Past Medical History: No History, Except For Hx Hypertension: Yes Hx Pacemaker: No - polyneuropathy, thrombocytopenia Hx Cancer: No Hx Gastrointestinal Problems: Yes - abdominal pain Hx Dialysis: No - History of kidney stones, UTI, BPH Hx Neurological Problems: Yes Hx Cerebrovascular Accident: Yes Hx Weakness: Yes Hx Neurologic Surgery: No Review of Systems All Other Systems: negative except mentioned in HPI Physical Exam Vital Signs Date Time Temp Pulse Resp B/P (MAP) Pulse Ox O2 Delivery O2 Flow Rate FiO2 10/18/19 19:02 98.4 70 16 118/59 (78) 93 Room Air General: Awake and alert, no acute distress, morbidly obese HEENT: NC/AT. EOMI. Neck: Supple, trachea midline Chest Wall: No tenderness, no deformity Cardiovascular: RRR. S1 and S2 normal. No murmur appreciated Resp: Normal work of breathing. No cough, wheezing or crackles appreciated Abdomen: Morbidly obese abdomen. Abdomen is soft, nondistended. Nontender Skin: Intact. No abrasions, laceration or rash over the exposed skin MSK: Normal tone and bulk. Moving all extremities. No obvious deformity. Neuro: Awake and alert. Mentating appropriately. Sp02 EP Interpretation: reviewed Medical Decision Making Diagnostic Impression: Primary Impression: Chest pain ER Course 53-year-old male presents from his nursing facility for evaluation of acute onset chest pain of several hours duration. He arrives with stable vital signs and denies any respiratory symptoms at this time. He does state his chest pain is similar to his prior [place]. Will obtain EKG, chest x-ray, labs. Patient will not be given aspirin given his reported angioedema reaction. He will be given Nitropaste. Laboratory Tests Test 10/18/19 19:35 White Blood Count 8.5 K/UL (4.8-10.8) Red Blood Count 5.60 M/UL (4.70-6.10) Hemoglobin 16.3 G/DL (14.2-18.0) Hematocrit 46.9 % (42.0-52.0) Mean Corpuscular Volume 84 FL (80-99) Mean Corpuscular Hemoglobin 29.1 PG (27.0-31.0) Mean Corpuscular Hemoglobin Concent 34.8 G/DL (32.0-36.0) Red Cell Distribution Width 12.5 % (11.6-14.8) Platelet Count 89 K/UL (150-450) L Mean Platelet Volume 8.7 FL (6.5-10.1) Neutrophils (%) (Auto) % (45.0-75.0) Lymphocytes (%) (Auto) % (20.0-45.0) Monocytes (%) (Auto) % (1.0-10.0) Eosinophils (%) (Auto) % (0.0-3.0) Basophils (%) (Auto) % (0.0-2.0) Differential Total Cells Counted 100 Neutrophils % (Manual) 66 % (45-75) Lymphocytes % (Manual) 26 % (20-45) Monocytes % (Manual) 6 % (1-10) Eosinophils % (Manual) 2 % (0-3) Basophils % (Manual) 0 % (0-2) Band Neutrophils 0 % (0-8) Platelet Estimate Decreased L Platelet Morphology Normal Red Blood Cell Morphology Normal Sodium Level 140 MMOL/L (136-145) Potassium Level 4.8 MMOL/L (3.5-5.1) Chloride Level 106 MMOL/L (98-107) Carbon Dioxide Level 29 MMOL/L (21-32) Anion Gap 5 mmol/L (5-15) Blood Urea Nitrogen 14 mg/dL (7-18) Creatinine 0.8 MG/DL (0.55-1.30) Estimate Glomerular Filtration Rate > 60 mL/min (>60) Glucose Level 93 MG/DL (74-106) Calcium Level 8.1 MG/DL (8.5-10.1) L Total Bilirubin 0.7 MG/DL (0.2-1.0) Aspartate Amino Transferase (AST) 126 U/L (15-37) H Alanine Aminotransferase (ALT) 148 U/L (12-78) H Alkaline Phosphatase 78 U/L (46-116) Troponin I 0.000 ng/mL (0.000-0.056) Pro-B-Type Natriuretic Peptide 70 pg/mL (0-125) Total Protein 7.8 G/DL (6.4-8.2) Albumin 2.9 G/DL (3.4-5.0) L Globulin 4.9 g/dL Albumin/Globulin Ratio 0.6 (1.0-2.7) L EKG Diagnostic Results EKG Time: 19:18 Rate: normal Rhythm: NSR ST Segments: no acute changes Other Impression Sinus rhythm, left axis deviation, normal intervals. No ST segment changes. Rhythm Strip Diag. Results Rhythm Strip Time: 19:18 EP Interpretation: yes Rate: 70s Rhythm: NSR, no PVC's, no ectopy Chest X-Ray Diagnostic Results Chest X-Ray Diagnostic Results : Chest X-Ray Ordered: Yes # of Views/Limited/Complete: 1 View Indication: Chest Pain Interpretation: no consolidation, no pneumothorax, other - Questionable small effusion left lower lobe Impression: No acute disease Electronically Signed by: Electronically signed by Dr. Michael Kline Reevaluation Time: 20:31 Last Vital Signs Date Time Temp Pulse Resp B/P (MAP) Pulse Ox O2 Delivery O2 Flow Rate FiO2 10/18/19 19:08 70 16 Room Air 10/18/19 19:08 98.4 118/59 93 Reevaluation Impression EKG is nonischemic, chest x-ray unremarkable and troponin is negative. The patient received morphine for his pain and went from a 8/10 to a 7/10. Given his multiple risk factors and persistent chest pain he will be admitted to telemetry service for further work-up of chest pain. His last perfusion scan in 2017 was nonischemic but may require repeat. His vital signs are stable. He will be admitted to his PMD, Dr. Georges. Disposition: ADMITTED INPATIENT Condition: Serious Michael Kline MD Oct 18, 2019 19:22
[2019-10-18 19:59] LABS: HEMATOCRIT 46.9 % (42.0-52.0); HEMOGLOBIN 16.3 G/DL (14.2-18.0); MEAN CORPUSCULAR VOLUME 84 FL (80-99); PLATELET COUNT 89 K/UL (150-450); RED CELL DISTRIBUTION WIDTH 12.5 % (11.6-14.8); WHITE BLOOD COUNT 8.5 K/UL (4.8-10.8)
[2019-10-18 20:07] VITALS: BP 131/56
--- NOTE | 2019-10-18 20:07 | NUR ---
ED Nurse Note: PATIENT RESTING COMFORTABLY, VITAL SIGNS STABLE AND DOCUMENTED.
[2019-10-18 20:10] LABS: ANION GAP 5 mmol/L (5-15); BLOOD UREA NITROGEN 14 mg/dL (7-18); CALCIUM 8.1 MG/DL (8.5-10.1); CARBON DIOXIDE 29 MMOL/L (21-32); CHLORIDE 106 MMOL/L (98-107); CREATININE 0.8 MG/DL (0.55-1.30); POTASSIUM 4.8 MMOL/L (3.5-5.1); SODIUM 140 MMOL/L (136-145)
[2019-10-18] MEDS ORDERED: Morphine Sulfate 4mg/ml Inj (IV USE ONLY) IVP ONE (20:15)
[2019-10-18 20:21] LABS: ALANINE AMINOTRANSFERASE 148 U/L (12-78); ALBUMIN 2.9 G/DL (3.4-5.0); ALBUMIN/GLOBULIN RATIO 0.6 (1.0-2.7); ALKALINE PHOSPHATASE 78 U/L (46-116); ASPARTATE AMINO TRANSFERASE 126 U/L (15-37); BILIRUBIN,TOTAL 0.7 MG/DL (0.2-1.0)
--- NOTE | 2019-10-18 21:50 | NUR ---
ED Nurse Note: CALLED IN AND GAVE REPORT TO JOYCELYN ANGULO. PATIENT IS ON ISOLATION FOR VRE AND MRSA ROOM CHANGED TO [facility], CURRENTLY BEING CLEANED. RECEIVING NURSE ASKED FOR 10-15 MINUITES BEFORE TRASPORT TO FLOOR.
--- NOTE | 2019-10-18 21:50 | NUR ---
NURSE NOTES: Received report from ER nurseBogdan.
--- NOTE | 2019-10-18 21:56 | NUR ---
ED Nurse Note: pATIENT TRANSPORTED TO FLOOR WITHOUTN INCIDENT BY TWO RN'S. ROOM NOT READY UPON ARRIVAL, STILL BEING CLEANT.
[2019-10-18 22:14] VITALS: BP 137/70
--- NOTE | 2019-10-18 22:14 | NUR ---
NURSE NOTES: Patient arrived to tele unit, transferred to bed from [facility] with 4 person staff member assist without incident. Patient oriented to room. Patient's belongings checked with ER nurse, ADELE Houston and signed by patient (Remote control from facility remains at bedside and cigarettes remain at the nurse's station). Patient placed on tele box, tolerated well. IV site checked, intact and patent. No signs of redness, bleeding, or infiltration. Medications reviewed with patient. Patient complained of pain. No distress or shortness of breath. Fall precautions in place. Bed in lowest position, brakes on, side rails up x3, and call light within reach. Will call Dr. Georges for admission orders.
[2019-10-18] MEDS ORDERED: TYLENOL325 MG ORAL (22:57)
[2019-10-18] MEDS ORDERED: PLAVIX75 MG ORAL (22:57)
[2019-10-18] MEDS ORDERED: TRAZODONE HCL50 MG ORAL (22:57)
--- NOTE | 2019-10-18 23:06 | NUR ---
NURSE NOTES: Called and left message with Dr. Georges for admission orders. Awaiting callback. Will continue to monitor patient.
[2019-10-19] VITALS (7 sets, daily range): BP systolic 119–140; BP diastolic 41–67
--- NOTE | 2019-10-19 01:23 | NUR ---
NURSE NOTES: Called for the second time and left message with Dr. Georges for admission orders. Awaiting callback. Will continue to monitor patient.
--- NOTE | 2019-10-19 02:30 | NUR ---
NURSE NOTES: Escalated obtaining admission orders to Charge nurse and nursing brine supervisor, nursing brine supervisor said to obtain admission orders from Dr. Christiansen. Will call Dr. Christiansen.
--- NOTE | 2019-10-19 02:35 | NUR ---
NURSE NOTES: Called and left message for Dr. Christiansen regarding obtaining admission orders. Awaiting call back. Will continue to monitor patient.
--- NOTE | 2019-10-19 03:47 | NUR ---
NURSE NOTES: Paged Dr. Georges and Dr. Christiansen for admission orders. Awaiting response. Will continue to monitor patient.
[2019-10-19] MEDS ORDERED: Morphine Sulfate 4mg/ml Inj (IV USE ONLY) IVP PRN (04:15)
--- NOTE | 2019-10-19 04:20 | NUR ---
NURSE NOTES: Acknowledged per protocol orders for patient. Will administer per protocol morphine 4 mg per patient's complaint of pain (06/25). Will continue to monitor.
--- NOTE | 2019-10-19 04:30 | NUR ---
NURSE NOTES: Received admission orders from Dr. Georges, noted and carried out. Will continue with plan of care.
[2019-10-19] MEDS ORDERED: Albuterol/Ipratropium 3ml neb HHN PRN (05:00)
[2019-10-19] MEDS ORDERED: Nitroglycerin Subl 0.4mg tab SL PRN (05:00)
[2019-10-19] MEDS ORDERED: Milk of Magnesia 30ml Ud ORAL PRN (05:00)
[2019-10-19] MEDS ORDERED: Sennosides 8.6mg tab ORAL PRN (05:00)
--- NOTE | 2019-10-19 07:11 | NUR ---
HAND-OFF: Report given to ADELE Rincon. Patient in stable condition and sitting semi-sparrow in bed and talkative, plan of care endorsed.
--- NOTE | 2019-10-19 07:15 | NUR ---
NURSE NOTES: I received the patient awake and resting in bed. Patient alert and oriented x4. Bed in the lowest position, bed locked and call light within reach. Patient was cleaned. Patient does not display any signs of distress or SOB.
[2019-10-19 08:13] LABS: HEMATOCRIT 47.9 % (42.0-52.0); HEMOGLOBIN 15.6 G/DL (14.2-18.0); MEAN CORPUSCULAR VOLUME 87 FL (80-99); PLATELET COUNT 94 K/UL (150-450); RED BLOOD COUNT 5.48 M/UL (4.70-6.10); RED CELL DISTRIBUTION WIDTH 14.3 % (11.6-14.8); WHITE BLOOD COUNT 8.1 K/UL (4.8-10.8)
[2019-10-19 08:31] LABS: ANION GAP 10 mmol/L (5-15); BLOOD UREA NITROGEN 15 mg/dL (7-18); CALCIUM 8.1 MG/DL (8.5-10.1); CARBON DIOXIDE 24 MMOL/L (21-32); CHLORIDE 107 MMOL/L (98-107); CREATININE 0.8 MG/DL (0.55-1.30); SODIUM 141 MMOL/L (136-145)
[2019-10-19] MEDS: Metoprolol 25mg tab ORAL SCH ×2 (08:36→21:39)
[2019-10-19] MEDS: Ascorbic Acid 500mg tab ORAL SCH (08:36)
[2019-10-19] MEDS: Docusate 100mg cap ORAL SCH (08:36)
[2019-10-19] MEDS: Sertraline 50mg tab ORAL SCH (08:36)
[2019-10-19] MEDS: Morphine Sulfate 2mg/ml Inj(IV/IM USE ONLY) IVP PRN ×4 (08:37→20:45)
--- NOTE | 2019-10-19 10:00 | History and Physical Report ---
DATE OF ADMISSION: 10/18/2019 DATE AND TIME SEEN: 10/19/2019 at 9 a.m. CONSULTANTS: 1. Tu Hughes M.D. 2. Amy Benites M.D. 3. Dr. Agustin. CHIEF COMPLAINT: Chest pain. BRIEF HISTORY: This is a 53-year-old male from [facility], who presented with above-mentioned diagnosis of chest pain, intermittent, substernal, dull, radiating to the left arm. No shortness of breath. No dizziness. No passing out. The patient came to [facility], diagnosed with the above, admitted to telemetry for further care. Currently, slightly confused, slightly anxious in bed. Chest pain is somewhat improved, no complaint. REVIEW OF SYSTEMS: Slight chest pain. No shortness of breath. No nausea, vomiting, or diarrhea. PAST MEDICAL HISTORY: Diabetes, hypertension, CVA, thrombocytopenia, neuropathy, BPH, and hepatitis C. PAST SURGICAL HISTORY: Unknown. ALLERGIES: Tylenol, aspirin and NSAIDs. MEDICATIONS: Include Abilify, Lipitor, Desyrel, Colace, Proscar, Lopressor, clopidogrel, morphine, albuterol, magnesium, and Zofran. SOCIAL HISTORY: No smoking. Positive alcohol. Positive drug use. PHYSICAL EXAMINATION: GENERAL: Calm in bed, oriented x2, in no acute distress. VITAL SIGNS: Temperature is 97 degrees, pulse 94, respirations 19, and blood pressure 131/59. CARDIOVASCULAR: No murmur. LUNGS: Poor air exchange. ABDOMEN: Bowel sounds distant. EXTREMITIES: No cyanosis or edema. NEUROLOGIC: The patient moves all extremities, slightly weak. LABORATORY AND DIAGNOSTIC DATA: Labs at this time show CBC is normal. BMP shows glucose 123. Calcium 8.1. Troponin 0.00. Albumin 2.9. ASSESSMENT: 1. Chest pain. 2. Diabetes. 3. Hypertension. 4. CVA. 5. Malnutrition. 6. Thrombocytopenia. 7. Neuropathy. 8. BPH. 9. Hepatitis C history. PLAN: 1. Pain control. 2. Troponin q.8 h. x3. 3. EKG in a.m. 4. Resume home medications. 5. Accu-Chek, sliding scale. 6. PT and dietary evaluation. 7. CBC and BMP in the morning. 8. We will continue to follow the patient. Roberto Georges D.O. DR: SUSY JOB#: [id number] CC:
--- NOTE | 2019-10-19 10:53 | Diagnostic Imaging Report ---
Indication: Chest pain Comparison: 04/28/2019 A single view chest radiograph was obtained. Findings: Cardiomediastinal appearance is within normal limits for age. There is minimal left basal atelectasis. Pulmonary vascularity is appropriate. The diaphragmatic contour is smooth and costophrenic angles are sharp. No pleural effusions are identified. The bones are unremarkable. Impression: No acute findings
[2019-10-19] MEDS: NovoLOG Insulin Flexpen SUBQ SCH ×3 (12:36→20:56)
--- NOTE | 2019-10-19 13:45 | Consultation ---
History of Present Illness General Chief Complaint: Chest Pain Present Illness Allergies: Coded Allergies: ACETAMINOPHEN (Verified Allergy, Unknown, 08/28/18) ASPIRIN (Verified Allergy, Unknown, 08/28/18) KETOROLAC (Verified Allergy, Unknown, 08/28/18) NSAIDS (NON-STEROIDAL ANTI-INFLAMMA (Verified Allergy, Unknown, 09/09/18) Medication History Scheduled Aripiprazole* (Abilify*), 4 MG ORAL BEDTIME, (Reported) Atorvastatin Calcium* (Atorvastatin Calcium*), 20 MG ORAL BEDTIME, (Reported) Bisacodyl (Bisacodyl), 10 MG RC PRN, (Reported) Bisacodyl (Dulcolax), 10 MG RC NEEDED, (Reported) Clopidogrel Bisulfate* (Plavix*), 75 MG ORAL DAILY, (Reported) Clopidogrel Bisulfate* (Plavix*), 75 MG ORAL DAILY, (Reported) Docusate Sodium* (Colace*), 100 MG ORAL DAILY, (Reported) Finasteride* (Proscar*), 5 MG ORAL DAILY, (Reported) Gabapentin* (Gabapentin*), 600 MG ORAL THREE TIMES A DAY, (Reported) Magnesium Hydroxide* (Milk Of Magnesia*), 30 ML ORAL DAILY, (Reported) Metoprolol Tartrate* (Metoprolol Tartrate*), 25 MG ORAL EVERY 12 HOURS, ( Reported) Multivitamin With Minerals (Multivitamins With Minerals*), 1 TAB ORAL DAILY, ( Reported) Sennosides (Senna), 8.6 MG PO BEDTIME, (Reported) Sertraline Hcl* (Zoloft*), 25 MG ORAL DAILY, (Reported) Trazodone Hcl* (Desyrel*), 50 MG ORAL BEDTIME, (Reported) Scheduled PRN Na Phos,M-B/Na Phos,Di-Ba* (Fleet Enema*), 133 ML RECTAL QOD PRN for IF BISACODYL INEFFECTIVE, (Reported) Nitroglycerin (Nitrostat), 0.4 MG SL Q5M X3 DOSES PRN for CHEST PAIN, (Reported) Miscellaneous Medications Ipratropium/Albuterol Sulfate (DuoNeb 0.5-3(2.5)mg/3ml), 3 ML HHN, (Reported) Discontinued Medications Acetaminophen (Tylenol), 650 MG ORAL Q4HR PRN for Mild Pain/Temp > 100.5, ( Reported) Discontinued Reason: Pt had allergic rxn Baclofen* (Baclofen*), 5 MG ORAL DAILY, (Reported) Discontinued Reason: Pt stopped taking med Bisacodyl (Biscolax), 10 MG RC DAILY PRN for Constipation, (Reported) Discontinued Reason: Pt stopped taking med Carisoprodol* (Carisoprodol*), 350 MG ORAL QID, (Reported) Discontinued Reason: Pt stopped taking med Cephalexin* (Keflex*), 500 MG ORAL EVERY 6 HOURS Discontinued Reason: Pt stopped taking med Cranberry Fruit Concentrate (Cranberry), 900 MG PO BID, (Reported) Discontinued Reason: Pt stopped taking med Famotidine* (Pepcid 20mg tablet*), 20 MG ORAL AC, (Reported) Discontinued Reason: Pt stopped taking med Folic Acid* (Folic Acid*), 1 MG ORAL DAILY, (Reported) Discontinued Reason: Pt stopped taking med Lactulose (Lactulose*), 30 ML ORAL DAILY, (Reported) Discontinued Reason: Pt stopped taking med Magnesium Hydroxide* (Milk Of Magnesia*), 30 ML ORAL BEDTIME PRN for IF NO BM X 3 DAYS, (Reported) Discontinued Reason: Medication dose changed Tamsulosin Hcl (Tamsulosin Hcl*), 0.4 MG ORAL BID, (Reported) Discontinued Reason: Pt stopped taking med Tramadol Hcl* (Ultram*), 50 MG ORAL Q8HR PRN for SEVERE PAIN (8-10), (Reported) Discontinued Reason: Pt stopped taking med Trazodone Hcl* (Desyrel*), 50 MG ORAL BEDTIME, (Reported) Discontinued Reason: Therapy completed Patient History Healthcare decision maker Resuscitation status Full Code Advanced Directive on File No Physical Exam Last 24 Hour Vital Signs Date Time Temp Pulse Resp B/P (MAP) Pulse Ox O2 Delivery O2 Flow Rate FiO2 10/19/19 12:00 98.1 66 18 122/61 (81) 93 10/19/19 11:38 97 Nasal Cannula 2.0 28 10/19/19 09:07 97.5 10/19/19 09:00 Room Air 10/19/19 08:36 74 131/59 10/19/19 08:00 97.5 74 19 131/59 (83) 94 10/19/19 07:53 75 10/19/19 04:00 77 10/19/19 04:00 97.8 76 18 127/59 (81) 96 10/19/19 00:10 Room Air 10/19/19 00:00 98.5 77 18 119/64 (82) 96 10/19/19 00:00 80 10/18/19 22:14 97.9 81 20 137/70 (92) 95 10/18/19 22:14 79 10/18/19 21:56 98.4 60 18 131/56 95 Room Air 10/18/19 20:37 98.4 10/18/19 20:07 98.4 60 18 131/56 95 Room Air 10/18/19 19:22 120/61 10/18/19 19:08 70 16 Room Air 10/18/19 19:08 98.4 70 16 118/59 93 Room Air 10/18/19 19:02 98.4 70 16 118/59 (78) 93 Room Air Intake and Output 10/18/19 10/19/19 18:59 06:59 Intake Total 0 ml Balance 0 ml Intake Oral 0 ml # Voids 1 Laboratory Tests Test 10/18/19 19:35 10/19/19 07:35 White Blood Count 8.5 K/UL (4.8-10.8) 8.1 K/UL (4.8-10.8) Red Blood Count 5.60 M/UL (4.70-6.10) 5.48 M/UL (4.70-6.10) Hemoglobin 16.3 G/DL (14.2-18.0) 15.6 G/DL (14.2-18.0) Hematocrit 46.9 % (42.0-52.0) 47.9 % (42.0-52.0) Mean Corpuscular Volume 84 FL (80-99) 87 FL (80-99) Mean Corpuscular Hemoglobin 29.1 PG (27.0-31.0) 28.5 PG (27.0-31.0) Mean Corpuscular Hemoglobin Concent 34.8 G/DL (32.0-36.0) 32.6 G/DL (32.0-36.0) Red Cell Distribution Width 12.5 % (11.6-14.8) 14.3 % (11.6-14.8) Platelet Count 89 K/UL (150-450) L 94 K/UL (150-450) L Mean Platelet Volume 8.7 FL (6.5-10.1) 9.9 FL (6.5-10.1) Neutrophils (%) (Auto) % (45.0-75.0) % (45.0-75.0) Lymphocytes (%) (Auto) % (20.0-45.0) % (20.0-45.0) Monocytes (%) (Auto) % (1.0-10.0) % (1.0-10.0) Eosinophils (%) (Auto) % (0.0-3.0) % (0.0-3.0) Basophils (%) (Auto) % (0.0-2.0) % (0.0-2.0) Differential Total Cells Counted 100 100 Neutrophils % (Manual) 66 % (45-75) 73 % (45-75) Lymphocytes % (Manual) 26 % (20-45) 17 % (20-45) L Monocytes % (Manual) 6 % (1-10) 8 % (1-10) Eosinophils % (Manual) 2 % (0-3) 2 % (0-3) Basophils % (Manual) 0 % (0-2) 0 % (0-2) Band Neutrophils 0 % (0-8) 0 % (0-8) Platelet Estimate Decreased L Decreased L Platelet Morphology Normal Normal Red Blood Cell Morphology Normal Normal Sodium Level 140 MMOL/L (136-145) 141 MMOL/L (136-145) Potassium Level 4.8 MMOL/L (3.5-5.1) 4.0 MMOL/L (3.5-5.1) Chloride Level 106 MMOL/L (98-107) 107 MMOL/L (98-107) Carbon Dioxide Level 29 MMOL/L (21-32) 24 MMOL/L (21-32) Anion Gap 5 mmol/L (5-15) 10 mmol/L (5-15) Blood Urea Nitrogen 14 mg/dL (7-18) 15 mg/dL (7-18) Creatinine 0.8 MG/DL (0.55-1.30) 0.8 MG/DL (0.55-1.30) Estimat Glomerular Filtration Rate > 60 mL/min (>60) > 60 mL/min (>60) Glucose Level 93 MG/DL (74-106) 123 MG/DL (74-106) H Calcium Level 8.1 MG/DL (8.5-10.1) L 8.1 MG/DL (8.5-10.1) L Total Bilirubin 0.7 MG/DL (0.2-1.0) Aspartate Amino Transf (AST/SGOT) 126 U/L (15-37) H Alanine Aminotransferase (ALT/SGPT) 148 U/L (12-78) H Alkaline Phosphatase 78 U/L (46-116) Troponin I 0.000 ng/mL (0.000-0.056) Pro-B-Type Natriuretic Peptide 70 pg/mL (0-125) Total Protein 7.8 G/DL (6.4-8.2) Albumin 2.9 G/DL (3.4-5.0) L Globulin 4.9 g/dL Albumin/Globulin Ratio 0.6 (1.0-2.7) L Anisocytosis Microbiology Date/Time Source Procedure Growth Status 10/18/19 19:16 Rectum Received Height (Feet): 6 Height (Inches): 4.00 Weight (Pounds): 293 Medications Current Medications Medications (Trade) Dose Ordered Sig/Hugo Route PRN Reason Start Time Stop Time Status Last Admin Dose Admin Al Hydroxide/Mg Hydroxide (Mylanta) 30 ml Q6H PRN ORAL Stomach Upset/Heart burn 10/19/19 05:00 11/18/19 04:59 Albuterol/ Ipratropium (Albuterol/ Ipratropium) 3 ml Q4H PRN HHN Shortness of Breath 10/19/19 05:00 10/24/19 04:59 Aripiprazole (Abilify) 4 mg QHS ORAL 10/19/19 21:00 11/18/19 20:59 Ascorbic Acid (Vitamin C) 500 mg DAILY ORAL 10/19/19 09:00 11/18/19 08:59 10/19/19 08:36 Atorvastatin Calcium (Lipitor) 20 mg BEDTIME ORAL 10/19/19 21:00 11/18/19 20:59 Bisacodyl (Dulcolax) 10 mg DAILYPRN PRN RECTAL Constipation 10/19/19 05:00 11/18/19 04:59 Clopidogrel Bisulfate (Plavix) 75 mg DAILY ORAL 10/19/19 09:00 11/18/19 08:59 10/19/19 08:36 Dextrose (Dextrose 50%) 25 ml Q30M PRN IV Hypoglycemia 10/19/19 10:15 11/18/19 10:14 Dextrose (Dextrose 50%) 50 ml Q30M PRN IV Hypoglycemia 10/19/19 10:15 11/18/19 10:14 Docusate Sodium (Colace) 100 mg DAILY ORAL 10/19/19 09:00 11/18/19 08:59 10/19/19 08:36 Finasteride (Proscar) 5 mg DAILY ORAL 10/19/19 09:00 11/18/19 08:59 10/19/19 08:36 Gabapentin (Neurontin) 600 mg THREE TIMES A DAY ORAL 10/19/19 09:00 11/18/19 08:59 10/19/19 12:32 Insulin Aspart (NovoLOG) BEFORE MEALS AND HS SUBQ 10/19/19 11:30 11/18/19 11:29 10/19/19 12:36 Magnesium Hydroxide (Mom) 30 ml HSPRN PRN ORAL Constipation 10/19/19 05:00 11/18/19 04:59 Metoprolol Tartrate (Lopressor) 25 mg Q12HR ORAL 10/19/19 09:00 11/18/19 08:59 10/19/19 08:36 Morphine Sulfate (Morphine Sulfate) 2 mg Q4H PRN IVP For Pain 10/19/19 05:00 10/26/19 04:59 10/19/19 12:32 Nitroglycerin (Ntg) 0.4 mg Q5M PRN SL Prn Chest Pain 10/19/19 05:00 11/18/19 04:59 Ondansetron HCl (Zofran) 4 mg Q4HR PRN IVP Nausea & Vomiting 10/19/19 04:15 11/18/19 04:14 Sennosides (Senokot) 17.2 mg QHS PRN ORAL Constipation 10/19/19 05:00 11/18/19 04:59 Sertraline HCl (Zoloft) 25 mg DAILY ORAL 10/19/19 09:00 11/18/19 08:59 10/19/19 08:36 Sodium Chloride 1,000 ml @ 60 mls/hr [id number] IV 10/19/19 10:15 11/18/19 10:14 10/19/19 10:42 Trazodone HCl (Desyrel) 50 mg BEDTIME ORAL 10/19/19 21:00 11/18/19 20:59 Assessment/Plan Assessment/Plan: Hematology/Oncology Consultation Requesting : Gagan Georges Date of Service: 10/19/19 Reason for consultation:Thrombocytopenia HISTORY OF PRESENT ILLNESS: 53y old male, well knownt o me from before, hx hep c, htn, The patient is here because of chest pain for two days. The patient denies shortness of breath. Denies nausea, vomiting, or diarrhea. The patient's chest pain radiates to the left arm. It has been going on for two days. Denies palpitation. Denies shortness of breath. Denies cough. Denies fever or chills. The patient also has elevated LFTs and apparently has history of gallstones and cirrhosis. Hematology/Oncology was consulted for Thrombocytopenia, Plt 82. PAST MEDICAL HISTORY History of CVA with left hemiparesis, History of rheumatic fever, Hyperlipidemia, GERD, Renal calculi, UTI, BPH. Hep C ALLERGIES: Acetaminophen, aspirin, ketorolac, and NSAIDs. FAMILY HISTORY: No premature coronary artery disease in the first-degree relatives. PAST SURGICAL HISTORY: None. REVIEW OF SYSTEMS: HEENT: Denies any headache, diplopia, or blurred vision. CONSTITUTIONAL: Denies any fever, chills, night sweats, or weight loss. CARDIOVASCULAR: Complains of chest pain, but no shortness of breath, PND, orthopnea, leg swelling, or syncope. PULMONARY: Denies any cough, hemoptysis, or wheezing. GASTROINTESTINAL: Denies any nausea, vomiting, diarrhea, constipation, abdominal pain, or GI bleed. GENITOURINARY: Denies any hematuria, dysuria, or incontinence. NEUROLOGY: History of left-sided weakness due to prior stroke. No altered speech. MEDICATIONS: List of medication includes: 1. Abilify 5 mg p.o. at bedtime. 2. Atorvastatin 20 mg p.o. at bedtime. 3. Bisacodyl 10 mg rectal p.r.n. constipation. 4. Soma 350 mg q.i.d. 5. Plavix 75 mg daily. 6. Cranberry 900 mg twice daily. 7. Colace 100 mg daily. 8. Famotidine 20 mg p.o. before meals. 9. Proscar 5 mg p.o. daily. 10. Folic acid 1 mg daily. 11. Gabapentin 600 mg three times a day. 12. Lactulose 30 mL p.o. daily. 13. Milk of magnesia 30 mL nightly p.r.n. constipation. 14. Metoprolol 25 mg q.12 h. 15. Multivitamin one tablet p.o. daily. 16. Fleet Enema 133 mL rectal every other day p.r.n. constipation. 17. Zoloft 50 mg p.o. daily. 18. Tamsulosin 0.4 mg twice daily. 19. Tramadol 50 mg q.8 h. p.r.n. severe pain. 20. Trazodone 50 mg at bedtime. PHYSICAL EXAMINATION: VITAL SIGNS: Reviewed GENERAL: This is a very unfortunate 53-year-old gentleman, chronically ill, in no apparent respiratory distress. HEENT: Atraumatic and normocephalic. Anicteric. perrl. NECK: JVP is less than 5 cm. No carotid bruits. Carotid upstrokes 2+ bilaterally. CARDIOVASCULAR: Normal S1 and S2. Regular rate and rhythm. No murmurs, gallops, or rubs. PMI is at fourth intercostal space at the midclavicular line. LUNGS: Clear to auscultation bilaterally. ABDOMEN: Soft, nontender, and nondistended. No hepatosplenomegaly. Positive bowel sounds. EXTREMITIES: No evidence of edema, clubbing, or cyanosis. LABORATORY FINDINGS: 12/2018 WBC 5.8, hemoglobin of 15.1, and platelet count is 82. 2/03/04: wbc 8, hgb 16, plt 94k ASSESSMENT AND PLAN: # Thrombocytopenia - potential causes multifactorial, in this case, most likely related to HEP C that is chronic, labs noted --> Hep panel and HIV reviewed from before, HEP C+++ --> US abd to evaluate for cirrhosis and hsm reviewed and neg from before --> Peripheral smear ordered to evaluate for blasts /schistocytes --> abx and other meds have been reviewed --> ok for ppx if plt >50k w/ either heparin or lovenox --> Transfuse if Plt < 20k and fever, or if Plt < 10k without fever # Atypical chest pain, AMI is ruled out, no ischemic changes on ECG, no wall motion abnormalities. --> per cards, Continue conservative management. # HCV infection. # Hx of CAD, s/p DC. --> per cards # Hx of CVA with left hemiparesis. Continue ASA and statins. # Hx of renal calculi. The timing of this note does not necessarily reflect the time of the patient was seen. Greatly appreciate consultation! Bebo Agustin MD Oct 19, 2019 13:45
--- NOTE | 2019-10-19 13:55 | NUR ---
PT EVALUATION NOTE Patient seen for initial evaluation. Patient at baseline is dependent with transfers OOB and is non-ambulatory. Patient is currently at baseline level of function, skilled inpatient PT intervention is not warranted. Patient discharged from PT, Mckenzie ANGULO notified. Addendum: 10/19/19 at 1420 by TRUDI CASTILLO PT Amended: Links added.
--- NOTE | 2019-10-19 16:12 | Cardiology Report ---
APPROVED REPORT EKG Measurement Heart [id number] Normal sinus rhythm Left axis deviation Inferior infarct, age undetermined Abnormal ECG
--- NOTE | 2019-10-19 16:13 | NUR ---
CASE MANAGEMENT: INITIAL REVIEW 53 YR OLD MALE BIBA FROM [facility] CC: CHEST PAIN PMH: DM, HTN, CVA, thrombocytopenia, neuropathy, BPH, and hepatitis C. SI: CHEST PAIN 98.4 70 16 118/59 93% ON RA CA+ 8.1 AST/ALT 126/148 IS:IV MORPHINE X1 NITRO-BIB TP X1 \: 2E TELE UNIT DCP: RETURN TO [facility] WHEN MEDICALLY STABLE PLAN: CARDIO WORK-UP TROP X3 ECG PT EVAL CASE MANAGEMENT: REVIEW 10/19/19 SI: CHEST PAIN 99.9 64 18 128/41 93% ON 2L NC CA+ 8.1 PLT 94 IS:IV NS @60ML/HR LOPRESSOR PO BID PROSCAR PO QD GABAPENTIN [P TID NOVOLOG SQ AC&HS \: 2E TELE UNIT DCP: RETURN TO [facility] WHEN MEDICALLY STABLE PLAN: LABS IN AM
--- NOTE | 2019-10-19 16:19 | Cardiology Report ---
APPROVED REPORT EKG Measurement Heart [id number] Normal sinus rhythm Left axis deviation Incomplete right bundle branch block Inferior infarct, age undetermined Cannot rule out Anterior infarct, age undetermined Abnormal ECG
[2019-10-19] MEDS ORDERED: ADVANCED ANTAC355 ML ORAL (19:13)
[2019-10-19] MEDS ORDERED: ACETAMINOPHEN325 M1 ORAL (19:16)
[2019-10-19] MEDS ORDERED: VITAMIN C500 M1 ORAL (19:17)
--- NOTE | 2019-10-19 19:20 | NUR ---
NURSE NOTES: Received report from Mckenzie Rn, pt. received in bed awake, A/O x's3-4 - able to make needs known, no signs or symptoms of acute cardiac or respiratory distress noted, bed alarm on, side rails u p x's3 and safety brakes engaged, pt. appears to be sating well on 2L NC no distress noted, call light within easy reach, Rt. hand 20G- intact and patent- running 1/2 NS at 60cc/hr, pt. appears to be clean and dry, safety measures continued, will continue with plan of care.
--- NOTE | 2019-10-19 19:37 | NUR ---
HAND-OFF: Report given to Rodrigo Thakur RN.
--- NOTE | 2019-10-19 20:35 | NUR ---
NURSE NOTES: pt. complaining of chest pain- but denies its heart related- stating its more chest and abdomen area pain and would like morphine-
[2019-10-19] MEDS: ARIPiprazole 2mg tab ORAL SCH (20:44)
[2019-10-19] MEDS: TraZODone 50mg tab ORAL SCH (20:45)
[2019-10-19] MEDS ORDERED: Atorvastatin 20mg tab ORAL SCH (21:00)
--- NOTE | 2019-10-19 21:15 | NUR ---
NURSE NOTES: pt. appears to be resting comfortably- denies pain and stating morphine is effective. Will continue to monitor pt. and with plan of care.
[2019-10-20] VITALS (7 sets, daily range): BP systolic 116–142; BP diastolic 61–97
[2019-10-20] MEDS: Morphine Sulfate 2mg/ml Inj(IV/IM USE ONLY) IVP PRN ×6 (00:48→23:26)
[2019-10-20] MEDS: NovoLOG Insulin Flexpen SUBQ SCH ×4 (05:30→20:55)
--- NOTE | 2019-10-20 06:00 | Hematology/Onc Progress Note ---
Assessment/Plan Assessment/Plan ASSESSMENT AND PLAN: # Thrombocytopenia - potential causes multifactorial, in this case, most likely related to HEP C that is chronic, labs noted --> Hep panel and HIV reviewed from before, HEP C+++ --> US abd to evaluate for cirrhosis and hsm reviewed and neg from before --> Peripheral smear ordered to evaluate for blasts /schistocytes --> abx and other meds have been reviewed --> ok for ppx if plt >50k w/ either heparin or lovenox --> Transfuse if Plt < 20k and fever, or if Plt < 10k without fever --> plt trend 89-->94k # Atypical chest pain, AMI is ruled out, no ischemic changes on ECG, no wall motion abnormalities. --> per cards --> as per continue conservative management # HCV infection. # Hx of CAD, s/p [place] --> per cards # Hx of CVA with left hemiparesis. Continue ASA and statins. # Hx of renal calculi. The timing of this note does not necessarily reflect the time of the patient was seen. Greatly appreciate consultation! Subjective Constitutional: Denies: no symptoms, chills, fever, malaise, weakness, other HEENT: Denies: no symptoms, eye pain, blurred vision, tearing, double vision, ear pain, ear discharge, nose pain, nose congestion, throat pain, throat swelling, mouth pain, mouth swelling, other Respiratory: Denies: no symptoms, cough, shortness of breath, SOB with excertion, SOB at rest, sputum, wheezing, other Gastrointestinal/Abdominal: Denies: no symptoms, abdomen distended, abdominal pain, black stools, tarry stools, blood in stool, constipated, diarrhea, difficulty swallowing, nausea, poor appetite, poor fluid intake, rectal bleeding , vomiting, other Genitourinary: Denies: no symptoms, burning, discharge, frequency, flank pain, hematuria, incontinence, pain, urgency, other Endocrine: Denies: no symptoms, excessive sweating, flushing, intolerance to cold, intolerance to heat, increased hunger, increased thirst, increased urine, unexplained weight gain, unexplained weight loss, other Allergies: Coded Allergies: ACETAMINOPHEN (Verified Allergy, Unknown, 08/28/18) ASPIRIN (Verified Allergy, Unknown, 08/28/18) FISH DERIVED (Verified Allergy, Unknown, 10/19/19) KETOROLAC (Verified Allergy, Unknown, 08/28/18) NSAIDS (NON-STEROIDAL ANTI-INFLAMMA (Verified Allergy, Unknown, 09/09/18) TRAMADOL (Verified Allergy, Unknown, 10/19/19) Subjective 10/20: labs being drawn, no bleeding, no chills, a+o x3, no major events Objective Objective Current Medications Medications (Trade) Dose Ordered Sig/Hugo Route PRN Reason Start Time Stop Time Status Last Admin Dose Admin Al Hydroxide/Mg Hydroxide (Mylanta) 30 ml Q6H PRN ORAL Stomach Upset/Heart burn 10/19/19 05:00 11/18/19 04:59 Albuterol/ Ipratropium (Albuterol/ Ipratropium) 3 ml Q4H PRN HHN Shortness of Breath 10/19/19 05:00 10/24/19 04:59 Aripiprazole (Abilify) 4 mg QHS ORAL 10/19/19 21:00 11/18/19 20:59 10/19/19 20:44 Ascorbic Acid (Vitamin C) 500 mg DAILY ORAL 10/19/19 09:00 11/18/19 08:59 10/19/19 08:36 Atorvastatin Calcium (Lipitor) 20 mg BEDTIME ORAL 10/19/19 21:00 11/18/19 20:59 10/19/19 20:45 Bisacodyl (Dulcolax) 10 mg DAILYPRN PRN RECTAL Constipation 10/19/19 05:00 11/18/19 04:59 Clopidogrel Bisulfate (Plavix) 75 mg DAILY ORAL 10/19/19 09:00 11/18/19 08:59 10/19/19 08:36 Dextrose (Dextrose 50%) 25 ml Q30M PRN IV Hypoglycemia 10/19/19 10:15 11/18/19 10:14 Dextrose (Dextrose 50%) 50 ml Q30M PRN IV Hypoglycemia 10/19/19 10:15 11/18/19 10:14 Docusate Sodium (Colace) 100 mg DAILY ORAL 10/19/19 09:00 11/18/19 08:59 10/19/19 08:36 Finasteride (Proscar) 5 mg DAILY ORAL 10/19/19 09:00 11/18/19 08:59 10/19/19 08:36 Gabapentin (Neurontin) 600 mg THREE TIMES A DAY ORAL 10/19/19 09:00 11/18/19 08:59 10/19/19 17:15 Insulin Aspart (NovoLOG) BEFORE MEALS AND HS SUBQ 10/19/19 11:30 11/18/19 11:29 10/19/19 20:56 Magnesium Hydroxide (Mom) 30 ml HSPRN PRN ORAL Constipation 10/19/19 05:00 11/18/19 04:59 Metoprolol Tartrate (Lopressor) 25 mg Q12HR ORAL 10/19/19 09:00 11/18/19 08:59 10/19/19 21:39 Morphine Sulfate (Morphine Sulfate) 2 mg Q4H PRN IVP For Pain 10/19/19 05:00 10/26/19 04:59 10/20/19 05:39 Nitroglycerin (Ntg) 0.4 mg Q5M PRN SL Prn Chest Pain 10/19/19 05:00 11/18/19 04:59 Ondansetron HCl (Zofran) 4 mg Q4HR PRN IVP Nausea & Vomiting 10/19/19 04:15 11/18/19 04:14 Sennosides (Senokot) 17.2 mg QHS PRN ORAL Constipation 10/19/19 05:00 11/18/19 04:59 Sertraline HCl (Zoloft) 25 mg DAILY ORAL 10/19/19 09:00 11/18/19 08:59 10/19/19 08:36 Sodium Chloride 1,000 ml @ 60 mls/hr [id number] IV 10/19/19 10:15 11/18/19 10:14 10/20/19 01:43 Trazodone HCl (Desyrel) 50 mg BEDTIME ORAL 10/19/19 21:00 11/18/19 20:59 10/19/19 20:45 Last 24 Hour Vital Signs Date Time Temp Pulse Resp B/P (MAP) Pulse Ox O2 Delivery O2 Flow Rate FiO2 10/20/19 05:35 62 119/72 (88) 10/20/19 04:00 98.6 62 19 116/97 (103) 93 10/20/19 03:40 63 10/20/19 01:18 99.9 10/20/19 00:00 98.1 69 18 136/69 (91) 93 10/19/19 23:30 67 10/19/19 21:39 69 140/67 10/19/19 21:31 69 140/67 (91) 10/19/19 21:00 Room Air 10/19/19 20:00 94 Room Air 21 10/19/19 20:00 98.2 71 17 139/65 (89) 93 10/19/19 19:01 75 10/19/19 16:00 99.9 64 18 128/41 (70) 93 10/19/19 15:19 60 10/19/19 12:00 98.1 66 18 122/61 (81) 93 10/19/19 11:38 97 Nasal Cannula 2.0 28 10/19/19 11:29 66 10/19/19 09:00 Room Air 10/19/19 08:36 74 131/59 10/19/19 08:00 97.5 74 19 131/59 (83) 94 10/19/19 07:53 75 10/19/19 04:00 77 10/19/19 04:00 97.8 76 18 127/59 (81) 96 10/19/19 00:10 Room Air 10/19/19 00:00 98.5 77 18 119/64 (82) 96 10/19/19 00:00 80 10/18/19 22:14 97.9 81 20 137/70 (92) 95 10/18/19 22:14 79 10/18/19 21:56 98.4 60 18 131/56 95 Room Air 10/18/19 20:37 98.4 10/18/19 20:07 98.4 60 18 131/56 95 Room Air 10/18/19 19:22 120/61 10/18/19 19:08 70 16 Room Air 10/18/19 19:08 98.4 70 16 118/59 93 Room Air 10/18/19 19:02 98.4 70 16 118/59 (78) 93 Room Air Intake and Output 10/19/19 10/20/19 19:00 07:00 Intake Total 1020 ml 557 ml Balance 1020 ml 557 ml Intake Oral 600 ml IV Total 420 ml 557 ml # Voids 1 Labs Test 10/18/19 19:35 12/4/19 07:35 White Blood Count 8.5 K/UL (4.8-10.8) 8.1 K/UL (4.8-10.8) Red Blood Count 5.60 M/UL (4.70-6.10) 5.48 M/UL (4.70-6.10) Hemoglobin 16.3 G/DL (14.2-18.0) 15.6 G/DL (14.2-18.0) Hematocrit 46.9 % (42.0-52.0) 47.9 % (42.0-52.0) Mean Corpuscular Volume 84 FL (80-99) 87 FL (80-99) Mean Corpuscular Hemoglobin 29.1 PG (27.0-31.0) 28.5 PG (27.0-31.0) Mean Corpuscular Hemoglobin Concent 34.8 G/DL (32.0-36.0) 32.6 G/DL (32.0-36.0) Red Cell Distribution Width 12.5 % (11.6-14.8) 14.3 % (11.6-14.8) Platelet Count 89 K/UL (150-450) 94 K/UL (150-450) Mean Platelet Volume 8.7 FL (6.5-10.1) 9.9 FL (6.5-10.1) Neutrophils (%) (Auto) % (45.0-75.0) % (45.0-75.0) Lymphocytes (%) (Auto) % (20.0-45.0) % (20.0-45.0) Monocytes (%) (Auto) % (1.0-10.0) % (1.0-10.0) Eosinophils (%) (Auto) % (0.0-3.0) % (0.0-3.0) Basophils (%) (Auto) % (0.0-2.0) % (0.0-2.0) Differential Total Cells Counted 100 100 Neutrophils % (Manual) 66 % (45-75) 73 % (45-75) Lymphocytes % (Manual) 26 % (20-45) 17 % (20-45) Monocytes % (Manual) 6 % (1-10) 8 % (1-10) Eosinophils % (Manual) 2 % (0-3) 2 % (0-3) Basophils % (Manual) 0 % (0-2) 0 % (0-2) Band Neutrophils 0 % (0-8) 0 % (0-8) Platelet Estimate Decreased Decreased Platelet Morphology Normal Normal Red Blood Cell Morphology Normal Normal Sodium Level 140 MMOL/L (136-145) 141 MMOL/L (136-145) Potassium Level 4.8 MMOL/L (3.5-5.1) 4.0 MMOL/L (3.5-5.1) Chloride Level 106 MMOL/L (98-107) 107 MMOL/L (98-107) Carbon Dioxide Level 29 MMOL/L (21-32) 24 MMOL/L (21-32) Anion Gap 5 mmol/L (5-15) 10 mmol/L (5-15) Blood Urea Nitrogen 14 mg/dL (7-18) 15 mg/dL (7-18) Creatinine 0.8 MG/DL (0.55-1.30) 0.8 MG/DL (0.55-1.30) Estimat Glomerular Filtration Rate > 60 mL/min (>60) > 60 mL/min (>60) Glucose Level 93 MG/DL (74-106) 123 MG/DL (74-106) Calcium Level 8.1 MG/DL (8.5-10.1) 8.1 MG/DL (8.5-10.1) Total Bilirubin 0.7 MG/DL (0.2-1.0) Aspartate Amino Transf (AST/SGOT) 126 U/L (15-37) Alanine Aminotransferase (ALT/SGPT) 148 U/L (12-78) Alkaline Phosphatase 78 U/L (46-116) Troponin I 0.000 ng/mL (0.000-0.056) Pro-B-Type Natriuretic Peptide 70 pg/mL (0-125) Total Protein 7.8 G/DL (6.4-8.2) Albumin 2.9 G/DL (3.4-5.0) Globulin 4.9 g/dL Albumin/Globulin Ratio 0.6 (1.0-2.7) Anisocytosis Height (Feet): 6 Height (Inches): 4.00 Weight (Pounds): 293 Objective PHYSICAL EXAMINATION: VITAL SIGNS: Reviewed GENERAL: in no apparent respiratory distress. HEENT: Atraumatic and normocephalic. Anicteric. perrl. NECK: JVP is less than 5 cm. No carotid bruits. Carotid upstrokes 2+ bilaterally. CARDIOVASCULAR: Normal S1 and S2. Regular rate and rhythm. No murmurs, gallops, or rubs. PMI is at fourth intercostal space at the midclavicular line. LUNGS: Clear to auscultation bilaterally. ABDOMEN: Soft, nontender, and nondistended. No hepatosplenomegaly. Positive bowel sounds. EXTREMITIES: No cce Bebo Agustin MD Oct 20, 2019 06:00
[2019-10-20 07:12] LABS: BASOPHILS % (AUTO) 0.9 % (0.0-2.0); EOSINOPHILS % (AUTO) 2.5 % (0.0-3.0); HEMATOCRIT 47.7 % (42.0-52.0); HEMOGLOBIN 15.9 G/DL (14.2-18.0); LYMPHOCYTES % (AUTO) 29.3 % (20.0-45.0); MEAN CORPUSCULAR VOLUME 87 FL (80-99); MONOCYTES % (AUTO) 8.5 % (1.0-10.0); NEUTROPHILS % (AUTO) 58.9 % (45.0-75.0); PLATELET COUNT 106 K/UL (150-450); RED BLOOD COUNT 5.51 M/UL (4.70-6.10); RED CELL DISTRIBUTION WIDTH 14.1 % (11.6-14.8); WHITE BLOOD COUNT 7.7 K/UL (4.8-10.8)
--- NOTE | 2019-10-20 07:14 | NUR ---
HAND-OFF: Report given to Megha RN, pt. remains stable and no signs of distress noted- Nurse aware to f/u on am labs.
[2019-10-20 07:52] LABS: ANION GAP 8 mmol/L (5-15); BLOOD UREA NITROGEN 16 mg/dL (7-18); CALCIUM 8.2 MG/DL (8.5-10.1); CARBON DIOXIDE 26 MMOL/L (21-32); CHLORIDE 105 MMOL/L (98-107); CREATININE 0.9 MG/DL (0.55-1.30); POTASSIUM 3.9 MMOL/L (3.5-5.1); SODIUM 138 MMOL/L (136-145)
--- NOTE | 2019-10-20 08:24 | NUR ---
NURSE NOTES: pt in bed and talking watching Tv, he just had breakfast. Pt on vehicle monitor technician no signs of cardiac or respiratory distress at this time. Call light within reach. Bed is locked and in lowest position. will continue to monitor pt and follow plans of care.
[2019-10-20] MEDS: Docusate 100mg cap ORAL SCH (09:50)
[2019-10-20] MEDS: Metoprolol 25mg tab ORAL SCH (09:50)
[2019-10-20] MEDS: Sertraline 50mg tab ORAL SCH (09:50)
[2019-10-20] MEDS: Ascorbic Acid 500mg tab ORAL SCH (09:51)
--- NOTE | 2019-10-20 11:42 | General Progress Note ---
Assessment/Plan Problem List: (1) HTN (hypertension) ICD Codes: I10 - Essential (primary) hypertension SNOMED: 00410004 (2) Diabetes ICD Codes: E11.9 - Type 2 diabetes mellitus without complications SNOMED: 55235606 (3) Malnutrition ICD Codes: E46 - Unspecified protein-calorie malnutrition SNOMED: 49417323 (4) Neuropathy ICD Codes: G62.9 - Polyneuropathy, unspecified SNOMED: 013025340 (5) Chest pain ICD Codes: R07.9 - Chest pain, unspecified SNOMED: 39905914 (6) History of CVA (cerebrovascular accident) ICD Codes: Z86.73 - Personal history of transient ischemic attack (TIA), and cerebral infarction without residual deficits SNOMED: 276708198 (7) Thrombocytopenia ICD Codes: D69.6 - Thrombocytopenia, unspecified SNOMED: 084389259 (8) Hepatitis C ICD Codes: B19.20 - Unspecified viral hepatitis C without hepatic coma SNOMED: 11953578 Status: unchanged Assessment/Plan: bp bs pain control cardio eval pt diet cbc bmp am Subjective Constitutional: Reports: weakness Allergies: Coded Allergies: ACETAMINOPHEN (Verified Allergy, Unknown, 08/28/18) ASPIRIN (Verified Allergy, Unknown, 08/28/18) FISH DERIVED (Verified Allergy, Unknown, 10/19/19) KETOROLAC (Verified Allergy, Unknown, 08/28/18) NSAIDS (NON-STEROIDAL ANTI-INFLAMMA (Verified Allergy, Unknown, 09/09/18) TRAMADOL (Verified Allergy, Unknown, 10/19/19) All Systems: reviewed and negative except above Subjective calm in bed Objective Last 24 Hour Vital Signs Date Time Temp Pulse Resp B/P (MAP) Pulse Ox O2 Delivery O2 Flow Rate FiO2 10/20/19 09:50 63 141/72 10/20/19 08:00 97.3 63 18 141/72 (95) 97 10/20/19 06:09 98.6 10/20/19 05:35 62 119/72 (88) 10/20/19 04:00 98.6 62 19 116/97 (103) 93 10/20/19 03:40 63 10/20/19 00:00 98.1 69 18 136/69 (91) 93 10/19/19 23:30 67 10/19/19 21:39 69 140/67 10/19/19 21:31 69 140/67 (91) 10/19/19 21:00 Room Air 10/19/19 20:00 94 Room Air 21 10/19/19 20:00 98.2 71 17 139/65 (89) 93 10/19/19 19:01 75 10/19/19 16:00 99.9 64 18 128/41 (70) 93 10/19/19 15:19 60 10/19/19 12:00 98.1 66 18 122/61 (81) 93 10/19/19 11:38 97 Nasal Cannula 2.0 28 Intake and Output 10/19/19 10/20/19 19:00 07:00 Intake Total 1020 ml 677 ml Balance 1020 ml 677 ml Intake Oral 600 ml IV Total 420 ml 677 ml # Voids 1 3 Laboratory Tests 10/20/19 05:46: White Blood Count 7.7, Red Blood Count 5.51, Hemoglobin 15.9, Hematocrit 47.7, Mean Corpuscular Volume 87, Mean Corpuscular Hemoglobin 28.9, Mean Corpuscular Hemoglobin Concent 33.4, Red Cell Distribution Width 14.1, Platelet Count 106L, Mean Platelet Volume 9.7, Neutrophils (%) (Auto) 58.9, Lymphocytes (%) (Auto) 29.3, Monocytes (%) (Auto) 8.5, Eosinophils (%) (Auto) 2.5, Basophils (%) (Auto ) 0.9, Sodium Level 138, Potassium Level 3.9, Chloride Level 105, Carbon Dioxide Level 26, Anion Gap 8, Blood Urea Nitrogen 16, Creatinine 0.9, Estimat Glomerular Filtration Rate > 60, Glucose Level 101, Calcium Level 8.2L, Troponin I 0.000 Height (Feet): 6 Height (Inches): 4.00 Weight (Pounds): 293 General Appearance: lethargic EENT: normal ENT inspection Neck: normal alignment Cardiovascular: normal peripheral pulses, normal rate, regular rhythm Respiratory/Chest: chest wall non-tender, lungs clear, normal breath sounds Abdomen: normal bowel sounds, non tender, soft Extremities: normal inspection Edema: no edema noted Arm (L), no edema noted Arm (R), no edema noted Leg (L), no edema noted Leg (R), no edema noted Pedal (L), no edema noted Pedal (R), no edema noted Generalized Neurologic: motor weakness Skin: normal pigmentation, warm/dry Roberto Georges DO Oct 20, 2019 11:41
--- NOTE | 2019-10-20 18:14 | Cardiology Progress Note ---
Assessment/Plan Assessment/Plan The patient is seen and examined, full consult note is dictated. Objective Last 24 Hour Vital Signs Date Time Temp Pulse Resp B/P (MAP) Pulse Ox O2 Delivery O2 Flow Rate FiO2 10/20/19 16:00 98.2 67 18 135/87 (103) 98 10/20/19 14:50 98.0 10/20/19 12:00 98.0 78 20 142/75 (97) 96 10/20/19 12:00 72 10/20/19 09:50 63 141/72 10/20/19 09:00 Room Air 10/20/19 08:18 95 Room Air 21 10/20/19 08:00 97.3 63 18 141/72 (95) 97 10/20/19 08:00 61 10/20/19 05:35 62 119/72 (88) 10/20/19 04:00 98.6 62 19 116/97 (103) 93 10/20/19 03:40 63 10/20/19 00:00 98.1 69 18 136/69 (91) 93 10/19/19 23:30 67 10/19/19 21:39 69 140/67 10/19/19 21:31 69 140/67 (91) 10/19/19 21:00 Room Air 10/19/19 20:00 94 Room Air 21 10/19/19 20:00 98.2 71 17 139/65 (89) 93 10/19/19 19:01 75 Intake and Output 10/19/19 10/20/19 18:59 06:59 Intake Total 960 ml 677 ml Balance 960 ml 677 ml Intake Oral 600 ml IV Total 360 ml 677 ml # Voids 1 3 Laboratory Tests Test 10/20/19 05:46 White Blood Count 7.7 K/UL (4.8-10.8) Red Blood Count 5.51 M/UL (4.70-6.10) Hemoglobin 15.9 G/DL (14.2-18.0) Hematocrit 47.7 % (42.0-52.0) Mean Corpuscular Volume 87 FL (80-99) Mean Corpuscular Hemoglobin 28.9 PG (27.0-31.0) Mean Corpuscular Hemoglobin Concent 33.4 G/DL (32.0-36.0) Red Cell Distribution Width 14.1 % (11.6-14.8) Platelet Count 106 K/UL (150-450) L Mean Platelet Volume 9.7 FL (6.5-10.1) Neutrophils (%) (Auto) 58.9 % (45.0-75.0) Lymphocytes (%) (Auto) 29.3 % (20.0-45.0) Monocytes (%) (Auto) 8.5 % (1.0-10.0) Eosinophils (%) (Auto) 2.5 % (0.0-3.0) Basophils (%) (Auto) 0.9 % (0.0-2.0) Sodium Level 138 MMOL/L (136-145) Potassium Level 3.9 MMOL/L (3.5-5.1) Chloride Level 105 MMOL/L (98-107) Carbon Dioxide Level 26 MMOL/L (21-32) Anion Gap 8 mmol/L (5-15) Blood Urea Nitrogen 16 mg/dL (7-18) Creatinine 0.9 MG/DL (0.55-1.30) Estimat Glomerular Filtration Rate > 60 mL/min (>60) Glucose Level 101 MG/DL (74-106) Calcium Level 8.2 MG/DL (8.5-10.1) L Troponin I 0.000 ng/mL (0.000-0.056) Microbiology Date/Time Source Procedure Growth Status 10/18/19 19:16 Rectum Received Tu Hughes MD Oct 20, 2019 18:13
--- NOTE | 2019-10-20 19:36 | NUR ---
HAND-OFF: Report given to Jessica/adele pt in stable condition . Addendum: 10/20/19 at 1937 by Megha Cuba RN HAND-OFF: Report given to Jessica/rn pt in stable condition . Addendum: 10/20/19 at 1938 by Megha Cuba RN HAND-OFF: Report given to Estefani/ADELE pt in stable condition .
--- NOTE | 2019-10-20 19:51 | NUR ---
NURSE NOTES: Received report from ADELE [place]. Patient is in bed, awake and responsive. Breathing regular and unlabored with no s/s of SOB noted. Patient denies any pain or discomfort at this time. IV is patent and intact, running fluids at prescribed rate. Bed is in lowest position, breaks engaged and call light is within reach all times. All needs are attended to at this moment, patient is in stable condition. Will continue to monitor.
[2019-10-20] MEDS: ARIPiprazole 2mg tab ORAL SCH (20:53)
[2019-10-20] MEDS: TraZODone 50mg tab ORAL SCH (20:54)
[2019-10-20] MEDS: Metoprolol Tartrate 50mg tab ORAL SCH (20:54)
--- NOTE | 2019-10-20 23:30 | Consultation ---
DATE OF CONSULTATION: 10/20/2019 CARDIOLOGY CONSULTATION CONSULTING PHYSICIAN: Tu Benton M.D. REFERRING PHYSICIAN: Roberto Georges D.O. REASON FOR CONSULTATION: Management of chest pain. HISTORY OF PRESENT ILLNESS: The patient is a very unfortunate 54-year-old gentleman, who is known to me, who presents to the hospital from a residential facility for complains of constant pressure-like chest pain which is pleuritic associated with productive cough. The patient states that the only medication that relieves the pain is morphine. He claims that he has had history of coronary artery disease and myocardial infarction in the past, but denies having any angioplasty and stent placement. His coronary artery disease risk factors includes hypertension and tobacco use. He also has history of CVA. He suffers from paranoid schizophrenia as well. At the time of arrival to this facility, blood pressure was 118/59 mmHg and heart rate was 70. His 12-lead electrocardiogram was significant for sinus rhythm at the rate of 73 with no acute ischemic changes. The patient was admitted to telemetry for further evaluation and management of chest pain. Cardiology consultation was made at the request of Dr. Georges to address the above. PAST MEDICAL HISTORY: 1. CVA with left hemiparesis. 2. Rheumatic fever. 3. Hyperlipidemia. 4. GERD. 5. Renal calculi. 6. Urinary tract infection. 7. BPH. 8. Paranoid schizophrenia. PAST SURGICAL HISTORY: None. MEDICATIONS: List of medications in the nursing facility acetaminophen 650 q.4 h. p.r.n. mild pain and temperature above 100.5 degrees Fahrenheit, Abilify 4 mg p.o. at bedtime, vitamin C 500 mg p.o. daily, atorvastatin 20 mg at bedtime, bisacodyl 10 mg p.r.n. constipation, Plavix 75 mg daily, Colace 100 mg p.o. daily, Proscar 5 mg daily, gabapentin 600 mg 3 times a day, DuoNeb inhaler q.4 hours p.r.n. shortness of breath, magnesium hydroxide, simethicone 30 mL 4 times a day p.r.n. stomach upset, magnesium hydroxide 30 mL daily p.r.n. constipation, metoprolol 25 mg q.12 hours, multivitamin one tablet daily, Fleet Enema 133 mL rectal every other day p.r.n. constipation, nitroglycerin 0.4 mg sublingual every 5 minutes x3 doses p.r.n. chest pain, senna 2 tablets p.o. at bedtime, Zoloft 25 mg p.o. daily, and trazodone 50 mg at bedtime. ALLERGIES TO: Acetaminophen, aspirin, Ketoralac, and NSAIDs. FAMILY HISTORY: No premature coronary artery disease in the first-degree relatives. REVIEW OF SYSTEMS: HEENT: Denies any headache, diplopia, or blurred vision. CONSTITUTIONAL: Denies any fever, chills, night sweats, or weight loss. CARDIOVASCULAR: Pleuritic chest pain in the left precordial area, which is constant with no associated shortness of breath, PND, orthopnea, or leg swelling. PULMONARY: Productive cough. Denies any hemoptysis or wheezing. GASTROINTESTINAL: Denies any nausea, vomiting, diarrhea, constipation, abdominal pain, or GI bleed. GENITOURINARY: Denies any hematuria, dysuria, or incontinence. NEUROLOGY: Left-sided motor weakness due to prior stroke. MUSCULOSKELETAL: Nonambulatory. PHYSICAL EXAMINATION: VITAL SIGNS: Blood pressure at the time of arrival to the hospital was 118/59, pulse of 70, respirations 16, temperature 98.4 degrees Fahrenheit, and O2 saturation 93% on room air. GENERAL: The patient is a very unfortunate 54-year-old gentleman, morbidly obese, bed-bound, in no apparent respiratory distress. HEENT: Atraumatic and normocephalic. Anicteric. Pupils are equal, round, and reactive to light and accommodation. Extraocular muscles intact. NECK: JVP less than 5 cm. No carotid bruit. Carotid upstrokes 2+ bilaterally. CARDIOVASCULAR: Normal S1, S2. Regular rate and rhythm. No murmurs, gallops, or rubs. PMI is at fourth intercostal space in the midclavicular line. LUNGS: Clear to auscultation bilaterally. ABDOMEN: Soft, nontender, and nondistended. Obese. Positive bowel sounds. EXTREMITIES: No evidence of edema, clubbing, or cyanosis. IMAGING: Chest x-ray shows no acute cardiopulmonary findings. LABORATORY FINDINGS: WBC was 8.5, hemoglobin of 16.3, hematocrit of 46.9, and platelet count 89,000. Chemistry is sodium 141, potassium is 4.3, chloride 107, bicarbonate 24, BUN of 15, creatinine 0.8, and glucose 123. Calcium is 8.1. Troponin I x2 negative. Total cholesterol 94, LDL is 66, HDL of 22, and triglycerides 53. AST and ALT are 89 and 105 respectively. A 2D echocardiography from January 07, 2019 shown normal LV systolic function with LVEF approximately 60%, normal right ventricular systolic pressure measured at 21 mmHg, moderate aortic regurgitation, and mild right atrial enlargement. ASSESSMENT AND PLAN: This is a very unfortunate 53-year-old gentleman, seen in Cardiology consultation. 1. Most likely noncardiac chest pain given the characters of pain and lack of EKG findings suggestive of acute ischemia and absence of wall motion abnormalities on 2D echocardiography obtained in December of 2018 when the patient presented to this hospital with the similar complaints. I would like to however proceed with 2D echocardiography for reassessment of the systolic function and evaluation of LV regional wall motion. 2. Further therapeutic and diagnostic decision will be based on the results of the above 2D echocardiography. In the meantime, I would believe the patient benefits from continuation of Plavix and beta-blockers. 3. History of CVA. We will continue a combination of Plavix and statins although I must admit that I would like to put statins on hold at this time due to elevated liver enzymes. I would like to thank Dr. Georges for allowing me to participate in the care of this patient. Tu Hughes M.D. DR: ALISA JOB#: [id number] CC:
[2019-10-21] VITALS: BP 109/45
[2019-10-21] MEDS: Morphine Sulfate 2mg/ml Inj(IV/IM USE ONLY) IVP PRN ×3 (03:33→12:27)
[2019-10-21 04:00] VITALS: BP 112/59
[2019-10-21] MEDS: NovoLOG Insulin Flexpen SUBQ SCH ×2 (06:38→11:30)
--- NOTE | 2019-10-21 07:05 | NUR ---
HAND-OFF: Report given to ADELE [place]. Patient in stable condition.
[2019-10-21 07:18] LABS: HEMATOCRIT 46.4 % (42.0-52.0); HEMOGLOBIN 15.2 G/DL (14.2-18.0); MEAN CORPUSCULAR VOLUME 88 FL (80-99); PLATELET COUNT 92 K/UL (150-450); RED BLOOD COUNT 5.25 M/UL (4.70-6.10); RED CELL DISTRIBUTION WIDTH 14.5 % (11.6-14.8); WHITE BLOOD COUNT 5.6 K/UL (4.8-10.8)
[2019-10-21 07:34] LABS: ANION GAP 8 mmol/L (5-15); BLOOD UREA NITROGEN 17 mg/dL (7-18); CALCIUM 8.5 MG/DL (8.5-10.1); CARBON DIOXIDE 26 MMOL/L (21-32); CHLORIDE 108 MMOL/L (98-107); CREATININE 0.8 MG/DL (0.55-1.30); POTASSIUM 3.7 MMOL/L (3.5-5.1); SODIUM 142 MMOL/L (136-145)
--- NOTE | 2019-10-21 07:41 | NUR ---
NURSE NOTES: pt in bed watching TV. Pt alert and talking. Pt on gambling monitor no signs of cardiac or respiratory distress. Bed in lowest position and locked. Call light within reach. Will continue to monitor pt and follow plans of care.
[2019-10-21 08:05] VITALS: BP 126/68
[2019-10-21] MEDS: Ascorbic Acid 500mg tab ORAL SCH (08:12)
[2019-10-21] MEDS: Docusate 100mg cap ORAL SCH (08:12)
[2019-10-21] MEDS: Sertraline 50mg tab ORAL SCH (08:12)
[2019-10-21 08:13] VITALS: BP 126/68
[2019-10-21] MEDS: Metoprolol Tartrate 50mg tab ORAL SCH (08:13)
--- NOTE | 2019-10-21 09:56 | General Progress Note ---
Assessment/Plan Problem List: (1) HTN (hypertension) ICD Codes: I10 - Essential (primary) hypertension SNOMED: 32581609 (2) Diabetes ICD Codes: E11.9 - Type 2 diabetes mellitus without complications SNOMED: 03823278 (3) Malnutrition ICD Codes: E46 - Unspecified protein-calorie malnutrition SNOMED: 21534902 (4) Neuropathy ICD Codes: G62.9 - Polyneuropathy, unspecified SNOMED: 005712222 (5) Chest pain ICD Codes: R07.9 - Chest pain, unspecified SNOMED: 32365550 (6) History of CVA (cerebrovascular accident) ICD Codes: Z86.73 - Personal history of transient ischemic attack (TIA), and cerebral infarction without residual deficits SNOMED: 024870558 (7) Thrombocytopenia ICD Codes: D69.6 - Thrombocytopenia, unspecified SNOMED: 912074678 (8) Hepatitis C ICD Codes: B19.20 - Unspecified viral hepatitis C without hepatic coma SNOMED: 91863392 Status: stable, progressing Assessment/Plan: bp bs pain control cardio eval pt diet cbc bmp am dc if clear Subjective Constitutional: Reports: weakness Allergies: Coded Allergies: ACETAMINOPHEN (Verified Allergy, Unknown, 08/28/18) ASPIRIN (Verified Allergy, Unknown, 08/28/18) FISH DERIVED (Verified Allergy, Unknown, 10/19/19) KETOROLAC (Verified Allergy, Unknown, 08/28/18) NSAIDS (NON-STEROIDAL ANTI-INFLAMMA (Verified Allergy, Unknown, 09/09/18) TRAMADOL (Verified Allergy, Unknown, 10/19/19) All Systems: reviewed and negative except above Subjective calm in bed Objective Last 24 Hour Vital Signs Date Time Temp Pulse Resp B/P (MAP) Pulse Ox O2 Delivery O2 Flow Rate FiO2 10/21/19 08:22 Room Air 10/21/19 08:17 70 18 94 Room Air 10/21/19 08:17 94 Room Air 21 10/21/19 08:13 69 126/68 10/21/19 08:05 98.4 69 20 126/68 (87) 95 10/21/19 04:00 97.4 76 19 112/59 (76) 96 10/21/19 04:00 56 10/21/19 00:00 48 10/21/19 00:00 98.1 62 19 109/45 (66) 95 10/20/19 21:42 96 Room Air 21 10/20/19 21:00 Room Air 10/20/19 20:54 73 134/61 10/20/19 20:00 97.2 73 20 134/61 (85) 98 10/20/19 20:00 69 10/20/19 16:00 98.2 67 18 135/87 (103) 98 10/20/19 16:00 63 10/20/19 14:50 98.0 10/20/19 12:00 98.0 78 20 142/75 (97) 96 10/20/19 12:00 72 Intake and Output 10/20/19 10/21/19 19:00 07:00 Intake Total 480 ml Output Total 300 ml 700 ml Balance 180 ml -700 ml Intake Oral 480 ml Output Urine Total 300 ml 700 ml # Voids 1 Laboratory Tests 10/21/19 05:37: White Blood Count 5.6, Red Blood Count 5.25, Hemoglobin 15.2, Hematocrit 46.4, Mean Corpuscular Volume 88, Mean Corpuscular Hemoglobin 29.0, Mean Corpuscular Hemoglobin Concent 32.8, Red Cell Distribution Width 14.5, Platelet Count 92L, Mean Platelet Volume 8.5, Neutrophils (%) (Auto) , Lymphocytes (%) (Auto) , Monocytes (%) (Auto) , Eosinophils (%) (Auto) , Basophils (%) (Auto) , Neutrophils % (Manual) [Pending], Lymphocytes % (Manual) [Pending], Platelet Estimate [Pending], Platelet Morphology [Pending], Sodium Level 142, Potassium Level 3.7, Chloride Level 108H, Carbon Dioxide Level 26, Anion Gap 8, Blood Urea Nitrogen 17, Creatinine 0.8, Estimat Glomerular Filtration Rate > 60, Glucose Level 125H, Calcium Level 8.5, Troponin I 0.007 Height (Feet): 6 Height (Inches): 4.00 Weight (Pounds): 293 General Appearance: lethargic EENT: normal ENT inspection Neck: normal alignment Cardiovascular: normal peripheral pulses, normal rate, regular rhythm Respiratory/Chest: chest wall non-tender, lungs clear, normal breath sounds Abdomen: normal bowel sounds, non tender, soft Extremities: normal inspection Edema: no edema noted Arm (L), no edema noted Arm (R), no edema noted Leg (L), no edema noted Leg (R), no edema noted Pedal (L), no edema noted Pedal (R), no edema noted Generalized Neurologic: motor weakness Skin: normal pigmentation, warm/dry Roberto Georges DO Oct 21, 2019 09:56
--- NOTE | 2019-10-21 10:41 | NUR ---
DISCHARGE PLANNED: PATIENT IS ACCEPTED BACK TO [facility] T: [phone] FOR NURSE TO NURSE REPORT ROOM# 34A [facility] PICKUP TIME @1234
--- NOTE | 2019-10-21 10:47 | Hematology/Onc Progress Note ---
Assessment/Plan Assessment/Plan ASSESSMENT AND PLAN: # Thrombocytopenia - potential causes multifactorial, in this case, most likely related to HEP C that is chronic, labs noted --> Hep panel and HIV reviewed from before, HEP C+++ --> US abd to evaluate for cirrhosis and hsm reviewed and neg from before --> Peripheral smear ordered to evaluate for blasts /schistocytes --> abx and other meds have been reviewed --> ok for ppx if plt >50k w/ either heparin or lovenox --> Transfuse if Plt < 20k and fever, or if Plt < 10k without fever --> plt trend 89-->94k->92k # Atypical chest pain, AMI is ruled out, no ischemic changes on ECG, no wall motion abnormalities. --> per cards --> as per continue conservative management # HCV infection. # Hx of CAD, s/p WA --> per cards # Hx of CVA with left hemiparesis. Continue ASA and statins. # Hx of renal calculi. The timing of this note does not necessarily reflect the time of the patient was seen. Greatly appreciate consultation! Subjective Constitutional: Denies: no symptoms, chills, fever, malaise, weakness, other HEENT: Denies: no symptoms, eye pain, blurred vision, tearing, double vision, ear pain, ear discharge, nose pain, nose congestion, throat pain, throat swelling, mouth pain, mouth swelling, other Cardiovascular: Denies: no symptoms, chest pain, edema, irregular heart rate, lightheadedness, palpitations, syncope, other Respiratory: Denies: no symptoms, cough, shortness of breath, SOB with excertion, SOB at rest, sputum, wheezing, other Gastrointestinal/Abdominal: Denies: no symptoms, abdomen distended, abdominal pain, black stools, tarry stools, blood in stool, constipated, diarrhea, difficulty swallowing, nausea, poor appetite, poor fluid intake, rectal bleeding , vomiting, other Genitourinary: Denies: no symptoms, burning, discharge, frequency, flank pain, hematuria, incontinence, pain, urgency, other Neurologic/Psychiatric: Denies: no symptoms, anxiety, depressed, emotional problems, headache, numbness, paresthesia, pre-existing deficit, seizure, tingling, tremors, weakness, other Endocrine: Denies: no symptoms, excessive sweating, flushing, intolerance to cold, intolerance to heat, increased hunger, increased thirst, increased urine, unexplained weight gain, unexplained weight loss, other Allergies: Coded Allergies: ACETAMINOPHEN (Verified Allergy, Unknown, 08/28/18) ASPIRIN (Verified Allergy, Unknown, 08/28/18) FISH DERIVED (Verified Allergy, Unknown, 10/19/19) KETOROLAC (Verified Allergy, Unknown, 08/28/18) NSAIDS (NON-STEROIDAL ANTI-INFLAMMA (Verified Allergy, Unknown, 09/09/18) TRAMADOL (Verified Allergy, Unknown, 10/19/19) Subjective 10/20: labs being drawn, no bleeding, no chills, a+o x3, no major events 10/21: labs have been reviewd, plt 92k, potential dc shortly Objective Objective Current Medications Medications (Trade) Dose Ordered Sig/Hugo Route PRN Reason Start Time Stop Time Status Last Admin Dose Admin Al Hydroxide/Mg Hydroxide (Mylanta) 30 ml Q6H PRN ORAL Stomach Upset/Heart burn 10/19/19 05:00 11/18/19 04:59 Albuterol/ Ipratropium (Albuterol/ Ipratropium) 3 ml Q4H PRN HHN Shortness of Breath 10/19/19 05:00 10/24/19 04:59 Aripiprazole (Abilify) 4 mg QHS ORAL 10/19/19 21:00 11/18/19 20:59 10/20/19 20:53 Ascorbic Acid (Vitamin C) 500 mg DAILY ORAL 10/19/19 09:00 11/18/19 08:59 10/21/19 08:12 Bisacodyl (Dulcolax) 10 mg DAILYPRN PRN RECTAL Constipation 10/19/19 05:00 11/18/19 04:59 Clopidogrel Bisulfate (Plavix) 75 mg DAILY ORAL 10/19/19 09:00 11/18/19 08:59 10/21/19 08:12 Dextrose (Dextrose 50%) 25 ml Q30M PRN IV Hypoglycemia 10/19/19 10:15 11/18/19 10:14 Dextrose (Dextrose 50%) 50 ml Q30M PRN IV Hypoglycemia 10/19/19 10:15 11/18/19 10:14 Docusate Sodium (Colace) 100 mg DAILY ORAL 10/19/19 09:00 11/18/19 08:59 10/21/19 08:12 Finasteride (Proscar) 5 mg DAILY ORAL 10/19/19 09:00 11/18/19 08:59 10/21/19 08:12 Gabapentin (Neurontin) 600 mg THREE TIMES A DAY ORAL 10/19/19 09:00 11/18/19 08:59 10/21/19 08:12 Insulin Aspart (NovoLOG) BEFORE MEALS AND HS SUBQ 10/19/19 11:30 11/18/19 11:29 10/21/19 06:38 Magnesium Hydroxide (Mom) 30 ml HSPRN PRN ORAL Constipation 10/19/19 05:00 11/18/19 04:59 Metoprolol Tartrate (Lopressor) 50 mg Q12HR ORAL 10/20/19 21:00 11/19/19 20:59 10/21/19 08:13 Morphine Sulfate (Morphine Sulfate) 2 mg Q4H PRN IVP For Pain 10/19/19 05:00 10/26/19 04:59 10/21/19 08:11 Nitroglycerin (Ntg) 0.4 mg Q5M PRN SL Prn Chest Pain 10/19/19 05:00 11/18/19 04:59 Ondansetron HCl (Zofran) 4 mg Q4HR PRN IVP Nausea & Vomiting 10/19/19 04:15 11/18/19 04:14 Sennosides (Senokot) 17.2 mg QHS PRN ORAL Constipation 10/19/19 05:00 11/18/19 04:59 Sertraline HCl (Zoloft) 25 mg DAILY ORAL 10/19/19 09:00 11/18/19 08:59 10/21/19 08:12 Sodium Chloride 1,000 ml @ 60 mls/hr [id number] IV 10/19/19 10:15 11/18/19 10:14 10/20/19 18:26 Trazodone HCl (Desyrel) 50 mg BEDTIME ORAL 10/19/19 21:00 11/18/19 20:59 10/20/19 20:54 Last 24 Hour Vital Signs Date Time Temp Pulse Resp B/P (MAP) Pulse Ox O2 Delivery O2 Flow Rate FiO2 10/21/19 08:22 Room Air 10/21/19 08:17 70 18 94 Room Air 10/21/19 08:17 94 Room Air 21 10/21/19 08:13 69 126/68 10/21/19 08:05 98.4 69 20 126/68 (87) 95 10/21/19 04:00 97.4 76 19 112/59 (76) 96 10/21/19 04:00 56 10/21/19 00:00 48 10/21/19 00:00 98.1 62 19 109/45 (66) 95 10/20/19 21:42 96 Room Air 21 10/20/19 21:00 Room Air 10/20/19 20:54 73 134/61 10/20/19 20:00 97.2 73 20 134/61 (85) 98 10/20/19 20:00 69 10/20/19 16:00 98.2 67 18 135/87 (103) 98 10/20/19 16:00 63 10/20/19 14:50 98.0 10/20/19 12:00 98.0 78 20 142/75 (97) 96 10/20/19 12:00 72 10/20/19 09:50 63 141/72 10/20/19 09:00 Room Air 10/20/19 08:18 95 Room Air 21 10/20/19 08:00 97.3 63 18 141/72 (95) 97 10/20/19 08:00 61 10/20/19 05:35 62 119/72 (88) 10/20/19 04:00 98.6 62 19 116/97 (103) 93 10/20/19 03:40 63 10/20/19 00:00 98.1 69 18 136/69 (91) 93 10/19/19 23:30 67 10/19/19 21:39 69 140/67 10/19/19 21:31 69 140/67 (91) 10/19/19 21:00 Room Air 10/19/19 20:00 94 Room Air 21 10/19/19 20:00 98.2 71 17 139/65 (89) 93 10/19/19 19:01 75 10/19/19 16:00 99.9 64 18 128/41 (70) 93 10/19/19 15:19 60 10/19/19 12:00 98.1 66 18 122/61 (81) 93 10/19/19 11:38 97 Nasal Cannula 2.0 28 10/19/19 11:29 66 Intake and Output 10/20/19 10/21/19 19:00 07:00 Intake Total 480 ml Output Total 300 ml 700 ml Balance 180 ml -700 ml Intake Oral 480 ml Output Urine Total 300 ml 700 ml # Voids 1 Labs Test 10/18/19 19:35 10/19/19 07:35 10/20/19 05:46 10/21/19 05:37 White Blood Count 8.5 K/UL (4.8-10.8) 8.1 K/UL (4.8-10.8) 7.7 K/UL (4.8-10.8) 5.6 K/UL (4.8-10.8) Red Blood Count 5.60 M/UL (4.70-6.10) 5.48 M/UL (4.70-6.10) 5.51 M/UL (4.70-6.10) 5.25 M/UL (4.70-6.10) Hemoglobin 16.3 G/DL (14.2-18.0) 15.6 G/DL (14.2-18.0) 15.9 G/DL (14.2-18.0) 15.2 G/DL (14.2-18.0) Hematocrit 46.9 % (42.0-52.0) 47.9 % (42.0-52.0) 47.7 % (42.0-52.0) 46.4 % (42.0-52.0) Mean Corpuscular Volume 84 FL (80-99) 87 FL (80-99) 87 FL (80-99) 88 FL (80- 99) Mean Corpuscular Hemoglobin 29.1 PG (27.0-31.0) 28.5 PG (27.0-31.0) 28.9 PG (27.0-31.0) 29.0 PG (27.0-31.0) Mean Corpuscular Hemoglobin Concent 34.8 G/DL (32.0-36.0) 32.6 G/DL (32.0-36.0) 33.4 G/DL (32.0-36.0) 32.8 G/DL (32.0-36.0) Red Cell Distribution Width 12.5 % (11.6-14.8) 14.3 % (11.6-14.8) 14.1 % (11.6-14.8) 14.5 % (11.6-14.8) Platelet Count 89 K/UL (150-450) 94 K/UL (150-450) 106 K/UL (150-450) 92 K/UL (150-450) Mean Platelet Volume 8.7 FL (6.5-10.1) 9.9 FL (6.5-10.1) 9.7 FL (6.5-10.1) 8.5 FL (6.5-10.1) Neutrophils (%) (Auto) % (45.0-75.0) % (45.0-75.0) 58.9 % (45.0-75.0) % (45.0-75.0) Lymphocytes (%) (Auto) % (20.0-45.0) % (20.0-45.0) 29.3 % (20.0-45.0) % (20.0-45.0) Monocytes (%) (Auto) % (1.0-10.0) % (1.0-10.0) 8.5 % (1.0-10.0) % (1.0-10.0) Eosinophils (%) (Auto) % (0.0-3.0) % (0.0-3.0) 2.5 % (0.0-3.0) % (0.0-3.0) Basophils (%) (Auto) % (0.0-2.0) % (0.0-2.0) 0.9 % (0.0-2.0) % (0.0-2.0) Differential Total Cells Counted 100 100 Neutrophils % (Manual) 66 % (45-75) 73 % (45-75) Lymphocytes % (Manual) 26 % (20-45) 17 % (20-45) Monocytes % (Manual) 6 % (1-10) 8 % (1-10) Eosinophils % (Manual) 2 % (0-3) 2 % (0-3) Basophils % (Manual) 0 % (0-2) 0 % (0-2) Band Neutrophils 0 % (0-8) 0 % (0-8) Platelet Estimate Decreased Decreased Platelet Morphology Normal Normal Red Blood Cell Morphology Normal Normal Sodium Level 140 MMOL/L (136-145) 141 MMOL/L (136-145) 138 MMOL/L (136-145) 142 MMOL/L (136-145) Potassium Level 4.8 MMOL/L (3.5-5.1) 4.0 MMOL/L (3.5-5.1) 3.9 MMOL/L (3.5-5.1) 3.7 MMOL/L (3.5-5.1) Chloride Level 106 MMOL/L (98-107) 107 MMOL/L (98-107) 105 MMOL/L (98-107) 108 MMOL/L (98-107) Carbon Dioxide Level 29 MMOL/L (21-32) 24 MMOL/L (21-32) 26 MMOL/L (21-32) 26 MMOL/L (21-32) Anion Gap 5 mmol/L (5-15) 10 mmol/L (5-15) 8 mmol/L (5-15) 8 mmol/L (5-15) Blood Urea Nitrogen 14 mg/dL (7-18) 15 mg/dL (7-18) 16 mg/dL (7-18) 17 mg/dL (7-18) Creatinine 0.8 MG/DL (0.55-1.30) 0.8 MG/DL (0.55-1.30) 0.9 MG/DL (0.55-1.30) 0.8 MG/DL (0.55-1.30) Estimat Glomerular Filtration Rate > 60 mL/min (>60) > 60 mL/min (>60) > 60 mL/min (>60) > 60 mL/min (>60) Glucose Level 93 MG/DL (74-106) 123 MG/DL (74-106) 101 MG/DL (74-106) 125 MG/DL (74-106) Calcium Level 8.1 MG/DL (8.5-10.1) 8.1 MG/DL (8.5-10.1) 8.2 MG/DL (8.5-10.1) 8.5 MG/DL (8.5-10.1) Total Bilirubin 0.7 MG/DL (0.2-1.0) Aspartate Amino Transf (AST/SGOT) 126 U/L (15-37) Alanine Aminotransferase (ALT/SGPT) 148 U/L (12-78) Alkaline Phosphatase 78 U/L (46-116) Troponin I 0.000 ng/mL (0.000-0.056) 0.000 ng/mL (0.000-0.056) 0.007 ng/mL (0.000-0.056) Pro-B-Type Natriuretic Peptide 70 pg/mL (0-125) Total Protein 7.8 G/DL (6.4-8.2) Albumin 2.9 G/DL (3.4-5.0) Globulin 4.9 g/dL Albumin/Globulin Ratio 0.6 (1.0-2.7) Anisocytosis Alpha Fetoprotein 12.3 ng/mL (0.0-8.3) Height (Feet): 6 Height (Inches): 4.00 Weight (Pounds): 293 Objective PHYSICAL EXAMINATION: VITAL SIGNS: Reviewed GENERAL: in no apparent respiratory distress. HEENT: Atraumatic and normocephalic. Anicteric. perrl. NECK: JVP is less than 5 cm. No carotid bruits. Carotid upstrokes 2+ bilaterally. CARDIOVASCULAR: Normal S1 and S2. Regular rate and rhythm. No murmurs, gallops, or rubs. PMI is at fourth intercostal space at the midclavicular line. LUNGS: Clear to auscultation bilaterally. ABDOMEN: Soft, nontender, and nondistended. No hepatosplenomegaly. Positive bowel sounds. EXTREMITIES: No cce Bebo Agustin MD Oct 21, 2019 10:47
--- NOTE | 2019-10-21 14:22 | Cardiology Report ---
APPROVED REPORT EXAM: Two-dimensional and M-mode echocardiogram with Doppler and color Doppler. INDICATION Chest Pain M-Mode DIMENSIONS IVSd1.3 (0.7-1.1cm)Left Atrium (MM)3.4 (1.6-4.0cm) LVDd6.0 (3.5-5.6cm)Aortic Root3.7 (2.0-3.7cm) PWd1.0 (0.7-1.1cm)Aortic Cusp Exc.2.1 (1.5-2.0cm) LVDs2.7 (2.5-4.0cm) PWs1.7 cm Technically difficult and limited study due to patient body habitus. Study quality precludes accurate assessment of regional wall motion. Normal left ventricular chamber size, systolic function and wall motion to extent visualized. Left ventricular ejection fraction estimated to be grossly normal. Mild left ventricular hypertrophy. There appears to be no evidence of pericardial effusion. All other cardiac chamber sizes appear to be within normal limits. Focal aortic valve sclerosis with adequate cusp excursion. Thickened mitral valve leaflets with normal excursion. Mitral annulus and aortic root calcification. Pulmonic valve not visualized. Normal tricuspid valve structure. IVC was not obtainable. A color flow and spectral Doppler study was performed and revealed: Trace aortic regurgitation.
--- NOTE | 2019-10-21 14:46 | NUR ---
NURSE NOTES: pt. DC back to [facility] via ambulance, pt AOx4. 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 IV was discontinued no bleeding noted. ID band taken off from pt. Pt belonging sheet was reviewed with pt. Pt is taking home everything he reported coming with. Pt DC information was discussed with pt. prior to DC, pt understands information. He verbalized understanding of instructions. Report was given to receiving nurse at [facility] at 1130, spoke to Zaira.
--- NOTE | 2019-10-23 17:20 | Discharge Summary ---
Discharge Summary Discharge Summary _ DATE OF ADMISSION: 10/18/2019 DATE OF DISCHARGE: 10/21/2019 DISCHARGED BY: Dr. Roberto Georges CONSULTANTS: Dr. Bebo Hughes BRIEF HOSPITAL COURSE: Patient is a 53-year-old male, from [facility], presented to ED due to intermittent chest pain, located substernally, dull, radiating to the left arm. Was no shortness of breath. No dizziness. No passing out. He has medical history significant for diabetes, hypertension, CVA, thrombocytopenia, neuropathy, BPH and hepatitis C. On evaluation at the ED, vital signs were stable. Blood work did not show any leukocytosis. Hemoglobin and hematocrit were stable. Platelet 89. Electrolytes were normal. Initial troponin was negative. EKG showed normal sinus with no acute ST segment changes. Chest x-ray showed a questionable small effusion on the left lower lobe per ED physician reading. Given multiple risk factors and persistent chest pain, patient was admitted to telemetry. Physician Support Coordinator was consulted. Patient complained of constant pressure-like chest pain, pleuritic, associated with productive cough. The patient stated that the only medication that relieves the pain is morphine. Patient has risk factors including hypertension and tobacco use. Cardiac enzymes were monitored and were negative. He had a 2D echocardiogram done on January 07, 2019 that showed normal LV systolic function with LVEF approximately 60%, normal right ventricular systolic pressure measured at 21 mmHg, moderate aortic regurgitation , and mild right atrial enlargement. Patient most likely has noncardiac chest pain given the character of pain and lack of EKG findings suggestive of acute ischemia and absence of wall motion abnormalities on echocardiogram done in December 2018. Repeat echocardiogram done this admission showed normal left ventricular function. Repeat echocardiogram done this admission showed normal left ventricular ejection fraction. He was continued on Plavix and Lipitor. He was given metoprolol 25 mg twice daily. Dose was eventually increased to 50 mg twice daily. He was continued on Abilify and trazodone. Rib Knitter consulted. Thrombocytopenia most likely related to chronic hepatitis C. Previous work-up was negative for HIV. Hepatitis panel was positive for hepatitis C. Platelet count improved. He was eventually discharged back to longterm. FINAL DIAGNOSES: Noncardiac chest pain CVA with left-sided hemiparesis Thrombocytopenia Hepatitis C infection Coronary artery disease status post RI History of renal calculi DISPOSITION: DC to SNF DISCHARGE MEDICATIONS: Refer to Discharge Medication List. I have been assigned to complete a discharge summary on this account, I was not involved with the patient's management.--JEROD Cuevas Jacqueline Robles NP Oct 23, 2019 17:20
== END 2019-10-21 14:25 | DRG 313 ==
LOC: EDBD 18:55 → EMR 19:46 → 2E 20:53 → EDBEDREQ 21:26 → 2E 23:35
DX: R07.89 Other chest pain (principal); I69.354 Hemiplegia and hemiparesis following cerebral infarction affecting left non-dominant side; E46 Unspecified protein-calorie malnutrition; B18.2 Chronic viral hepatitis C; N40.0 Benign prostatic hyperplasia without lower urinary tract symptoms; I25.10 Atherosclerotic heart disease of native coronary artery without angina pectoris; F17.210 Nicotine dependence, cigarettes, uncomplicated; Z79.4 Long term (current) use of insulin; I10 Essential (primary) hypertension; D69.59 Other secondary thrombocytopenia; Z87.442 Personal history of urinary calculi; E11.42 Type 2 diabetes mellitus with diabetic polyneuropathy; Z68.35 Body mass index [BMI] 35.0-35.9, adult
CPT/HCPCS: 36415; 71045; 80048; 80053; 82105; 82962; 83880; 84484; 85007; 85025; 87081; 93005; 93306; 94664; 96374; 99285; J1815

== ENCOUNTER 2020-03-30 17:52 | Inpatient (IN) | payer MEDICARE, OTHER ==
[~2020-03-30] VITALS: Ht 175.3 cm; Wt 90.7 kg
[~2020-03-30 17:52] MED LIST changes: +ACETAMINOPHEN325 M1 ORAL; +ADVANCED ANTAC355 ML ORAL; +TYLENOL325 MG ORAL; +VITAMIN C500 M1 ORAL
[2020-03-30 18:00] VITALS: BP 138/72
--- NOTE | 2020-03-30 18:00 | NUR ---
ED Nurse Note: Pt arrived with RA from [facility]. pt c/o of left chest pain radiating to lefrt arm. pt has left side deficits due to previous stroke. pt has right hand iv site establed per RA. pt was changed into new gown and cleaned. pt connected to monitor, bed at lowest position. pt has no wounds. pt bilateral lower extremities and left arm floated with support of pillow. pt is currently afebrile, pt shows signs of cough.
--- NOTE | 2020-03-30 18:11 | Emergency Room Report ---
History of Present Illness General Chief Complaint: Chest Pain Source: Patient, Medical Record Present Illness HPI Disclaimer: Please note that this report is being documented using DRAGON technology. This can lead to erroneous entry secondary to incorrect interpretation by the dictating instrument. HPI: 54-year-old male presents for evaluation of shortness of breath and chest pain. Patient has a history of hypertension, hyperlipidemia, CVA with residual left-sided hemiparesis, CAD, psych disorder and recently tested positive for COVID-19. He was in his usual state of health until this afternoon when he began to experience a left-sided chest pressure with pain rating down the left shoulder and down the left arm as well as the left side of the neck. Denies a tearing sensation through his chest. He does report shortness of breath but denies any cough, URI symptoms. He has felt feverish over the past few days but has not recorded any febrile temperatures. Reports some urinary discomfort. Denies hematuria. PMH: Hypertension, hyperlipidemia, CAD, CVA PSH: Lumbar laminectomies Allergies: Tylenol, aspirin, Toradol Social Hx: Reviewed Allergies: Coded Allergies: ACETAMINOPHEN (Verified Allergy, Unknown, 08/28/18) ASPIRIN (Verified Allergy, Unknown, 08/28/18) FISH DERIVED (Verified Allergy, Unknown, 10/19/19) KETOROLAC (Verified Allergy, Unknown, 08/28/18) NSAIDS (NON-STEROIDAL ANTI-INFLAMMA (Verified Allergy, Unknown, 09/09/18) TRAMADOL (Verified Allergy, Unknown, 10/19/19) COVID-19 Screening Contact w/high risk pt: No Recent Travel to affected area: No Experienced COVID-19 symptoms?: Yes COVID-19 symptoms experienced: Shortness of Breath COVID-19 Testing performed 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 - 1 week ago COVID-19 Screening: Positive COVID-19 COVID-19 Testing Source: [facility] Documentation-PMH Hx Hypertension: Yes Hx Pacemaker: No - polyneuropathy, thrombocytopenia Hx Cancer: No Hx Gastrointestinal Problems: Yes - abdominal pain Hx Dialysis: No - History of kidney stones, UTI, BPH Hx Neurological Problems: Yes Hx Cerebrovascular Accident: Yes Hx Weakness: Yes Hx Neurologic Surgery: No Review of Systems All Other Systems: negative except mentioned in HPI Physical Exam Vital Signs Date Time Temp Pulse Resp B/P (MAP) Pulse Ox O2 Delivery O2 Flow Rate FiO2 03/30/20 17:53 97.0 84 14 138/72 (94) 95 Room Air General: Awake and alert, no acute distress HEENT: NC/AT. EOMI. Cardiovascular: RRR. S1 and S2 normal. No murmur appreciated Resp: Normal work of breathing. No cough, wheezing or crackles appreciated Abdomen: Abdomen is soft, nondistended. Obese abdomen. Nontender Skin: Intact. No abrasions, laceration or rash over the exposed skin MSK: Normal tone and bulk. Flaccid paralysis of the left upper extremity and left lower extremity. No obvious deformity. Neuro: Awake and alert. Mentating appropriately. Medical Decision Making Diagnostic Impression: Primary Impression: UTI (urinary tract infection) Additional Impressions: Pneumonia due to COVID-19 virus Chest pain ER Course 54-year-old male presents for evaluation of chest pain. Differential includes was not limited to ACS, arrhythmia, pericarditis, myocarditis, viral syndrome, pleurisy, pneumonia, bronchitis, GERD to name a few. Arrives afebrile, no respiratory distress and vital signs are otherwise within normal limits. EKG, chest x-ray and broad labs were ordered. EKG is nonischemic though does show some inferior lateral Q waves consistent with the patient's history of heart disease. Troponin was negative. Questionable urinary tract infection will the patient was complaining of some dysuria. Chest x-ray interpreted by radiology concerning for possible retrocardiac infiltrate versus atelectasis. He was treated with ceftriaxone azithromycin. Patient be admitted to his PMD, Dr. Georges, for further treatment. Will be kept in respiratory isolation given his COVID-19 status. Laboratory Tests Test 03/30/20 18:25 03/30/20 18:30 White Blood Count 9.0 K/UL (4.8-10.8) Red Blood Count 5.60 M/UL (4.70-6.10) Hemoglobin 16.0 G/DL (14.2-18.0) Hematocrit 51.9 % (42.0-52.0) Mean Corpuscular Volume 93 FL (80-99) Mean Corpuscular Hemoglobin 28.5 PG (27.0-31.0) Mean Corpuscular Hemoglobin Concent 30.8 G/DL (32.0-36.0) L Red Cell Distribution Width 15.1 % (11.6-14.8) H Platelet Count 100 K/UL (150-450) L Mean Platelet Volume 11.8 FL (6.5-10.1) H Neutrophils (%) (Auto) 66.6 % (45.0-75.0) Lymphocytes (%) (Auto) 22.3 % (20.0-45.0) Monocytes (%) (Auto) 7.9 % (1.0-10.0) Eosinophils (%) (Auto) 2.2 % (0.0-3.0) Basophils (%) (Auto) 1.0 % (0.0-2.0) Urine Color Yellow Urine Appearance Clear Urine pH 6 (4.5-8.0) Urine Specific [place] 1.025 (1.005-1.035) Urine Protein Negative (NEGATIVE) Urine Glucose (UA) Negative (NEGATIVE) Urine Ketones Negative (NEGATIVE) Urine Blood 3+ (NEGATIVE) H Urine Nitrite Negative (NEGATIVE) Urine Bilirubin Negative (NEGATIVE) Urine Urobilinogen 1 MG/DL (0.0-1.0) H Urine Leukocyte Esterase 1+ (NEGATIVE) H Urine RBC 5-10 /HPF (0 - 0) H Urine WBC 15-20 /HPF (0 - 0) H Urine Squamous Epithelial Cells Occasional /LPF Urine Bacteria Few /HPF (NONE) Sodium Level 143 MMOL/L (136-145) Potassium Level 4.2 MMOL/L (3.5-5.1) Chloride Level 109 MMOL/L (98-107) H Carbon Dioxide Level 24 MMOL/L (21-32) Anion Gap 10 mmol/L (5-15) Blood Urea Nitrogen 12 mg/dL (7-18) Creatinine 0.8 MG/DL (0.55-1.30) Estimated Glomerular Filtration Rate > 60 mL/min (>60) Glucose Level 129 MG/DL (74-106) H Lactic Acid Level 1.20 mmol/L (0.4-2.0) Calcium Level 8.5 MG/DL (8.5-10.1) Total Bilirubin 0.5 MG/DL (0.2-1.0) Aspartate Amino Transferase (AST) 62 U/L (15-37) H Alanine Aminotransferase (ALT) 88 U/L (12-78) H Alkaline Phosphatase 91 U/L (46-116) Total Creatine Kinase 94 U/L (26-308) Creatine Kinase MB 0.5 NG/ML (0.0-3.6) Creatine Kinase MB Relative Index 0.5 Troponin I 0.000 ng/mL (0.000-0.056) Total Protein 7.7 G/DL (6.4-8.2) Albumin 2.9 G/DL (3.4-5.0) L Globulin 4.8 g/dL Albumin/Globulin Ratio 0.6 (1.0-2.7) L EKG Diagnostic Results EKG Time: 18:14 Rate: normal Rhythm: NSR ST Segments: no acute changes Other Impression Sinus rhythm, left axis deviation, normal intervals, no ST segment changes. Inferior and lateral Q waves. Occasional PVC Rhythm Strip Diag. Results Rhythm Strip Time: 18:14 EP Interpretation: yes Rate: 80s Rhythm: NSR, no ectopy, other - Occasional PVC Chest X-Ray Diagnostic Results Chest X-Ray Diagnostic Results : Chest X-Ray Ordered: Yes # of Views/Limited/Complete: 1 View Indication: Shortness of Breath EP Interpretation: Yes Interpretation: no consolidation, no effusion, no pneumothorax, other - Mild vascular congestion of the lower lobes bilaterally Impression: Other - Bilateral vascular congestion, no obvious infiltrate Electronically Signed by: Electronically signed by Dr. Michael Kline Last Vital Signs Date Time Temp Pulse Resp B/P (MAP) Pulse Ox O2 Delivery O2 Flow Rate FiO2 03/30/20 17:53 97.0 84 14 138/72 (94) 95 Room Air Disposition: ADMITTED INPATIENT Condition: Serious Michael Kline MD March 30, 2020 18:11
[2020-03-30] MEDS ORDERED: FAMOTIDINE20 MG ORAL (18:13)
[2020-03-30] MEDS ORDERED: MOTRIN IB200 MG ORAL (18:13)
[2020-03-30] MEDS ORDERED: FLEET ENEMA133 ML RECTAL (18:13)
[2020-03-30] MEDS ORDERED: HUMALOG100 UNIT/3 SUBQ (18:13)
[2020-03-30] MEDS ORDERED: MYLANTA MAXIMU355 ML PO (18:16)
--- NOTE | 2020-03-30 18:38 | NUR ---
ED Nurse Note: covid +
--- NOTE | 2020-03-30 18:41 | NUR ---
ED Nurse Note: cre/vre and mrsa swabs sent to lab. blood and urine specimen sent to lab
--- NOTE | 2020-03-30 18:50 | Diagnostic Imaging Report ---
EXAM: XR Chest, 1 View CLINICAL HISTORY: SOB TECHNIQUE: Frontal view of the chest. COMPARISON: 10/18/2019 FINDINGS: Lungs: Retrocardiac airspace opacity, atelectasis versus infiltrate. Subsegmental atelectasis at the right base. Pleural space: No pleural effusion. No pneumothorax. Heart: Unremarkable. No cardiomegaly. IMPRESSION: Retrocardiac airspace opacity, atelectasis versus infiltrate.
[2020-03-30 19:00] LABS: BILIRUBIN, URINE NEGATIVE (NEGATIVE); GLUCOSE, URINE (UA) NEGATIVE (NEGATIVE); KETONES,URINE NEGATIVE (NEGATIVE); LEUKOCYTE ESTERASE ,URINE 1+ (NEGATIVE); NITRITE,URINE NEGATIVE (NEGATIVE); PH,URINE 6 (4.5-8.0); PROTEIN,URINE NEGATIVE (NEGATIVE); UROBILINOGEN,URINE 1 MG/DL (0.0-1.0)
[2020-03-30 19:00] LABS: EOSINOPHILS % (AUTO) 2.2 % (0.0-3.0); HEMATOCRIT 51.9 % (42.0-52.0); LYMPHOCYTES % (AUTO) 22.3 % (20.0-45.0); MEAN CORPUSCULAR VOLUME 93 FL (80-99); MONOCYTES % (AUTO) 7.9 % (1.0-10.0); NEUTROPHILS % (AUTO) 66.6 % (45.0-75.0); PLATELET COUNT 100 K/UL (150-450); RED CELL DISTRIBUTION WIDTH 15.1 % (11.6-14.8)
[2020-03-30 19:03] LABS: APPEARANCE,URINE CLEAR; COLOR,URINE YELLOW
[2020-03-30 19:10] LABS: ANION GAP 10 mmol/L (5-15); BLOOD UREA NITROGEN 12 mg/dL (7-18); CALCIUM 8.5 MG/DL (8.5-10.1); CARBON DIOXIDE 24 MMOL/L (21-32); CHLORIDE 109 MMOL/L (98-107); CREATININE 0.8 MG/DL (0.55-1.30); POTASSIUM 4.2 MMOL/L (3.5-5.1); SODIUM 143 MMOL/L (136-145)
[2020-03-30 19:11] VITALS: BP 129/59
--- NOTE | 2020-03-30 19:11 | NUR ---
ED Nurse Note: received report from Annamarie ANGULO. Will resume care of patient. [place]en [place].
[2020-03-30] MEDS ORDERED: Nitroglycerin Subl 0.4mg tab SL PRN (19:15)
--- NOTE | 2020-03-30 19:16 | NUR ---
ED Nurse Note: patient c/o chest pain 06/25 and requested for pain med. ermd notified. will carry out order
[2020-03-30 19:26] LABS: ALANINE AMINOTRANSFERASE 88 U/L (12-78); ALBUMIN 2.9 G/DL (3.4-5.0); ALBUMIN/GLOBULIN RATIO 0.6 (1.0-2.7); ALKALINE PHOSPHATASE 91 U/L (46-116); ASPARTATE AMINO TRANSFERASE 62 U/L (15-37); BILIRUBIN,TOTAL 0.5 MG/DL (0.2-1.0); CKMB 0.5 NG/ML (0.0-3.6); CREATINE KINASE 94 U/L (26-308)
[2020-03-30] MEDS ORDERED: Azithromycin 500 MG in NS 275 ML IV ONE (19:30)
[2020-03-30] MEDS ORDERED: cefTRIAXone 1 GM in NS 55 ML IVPB ONE (19:30)
[2020-03-30] MEDS ORDERED: Morphine Sulfate 4mg/ml Inj (IV USE ONLY) IVP ONE (20:15)
--- NOTE | 2020-03-30 21:05 | NUR ---
ED Nurse Note: gave report to Orestes ANGULO.
[2020-03-30 21:06] VITALS: BP 115/59
--- NOTE | 2020-03-30 21:15 | NUR ---
TRANSFER TO FLOOR: Patient transferred to [facility] via [facility] in stable condition via transport 19 protocol as ordered, per dr. Georges . Report given to Orestes yee. Belongings sent with patient.
--- NOTE | 2020-03-30 21:30 | NUR ---
NURSE NOTES: Noted to have scabs on patient's left forearm. Patient verbalized that they were scratch enriquez that became wounds. Other than those, no other alterations in skin integrity.
--- NOTE | 2020-03-30 21:30 | NUR ---
NURSE NOTES: Received patient fron ADELE [place]. Admitted directly from ED with admitting dx: ACS, Chest pain. Patient AOx4, alert, awake, and coherent. Able to verbalize needs. On room air, saturating at 98%. Admitting VS: 123/58, MO: 76, RR: 16, T: 97.0, spO2: 98%. 5 Leads placed on patient. IV site on RH, intact and flushed. skin is intact. Oriented to facility policy. Call light placed within reach. Will continue to monitor. Called Dr. Georges's answering service for admission orders. Bed in lowest position, brakes engaged. Bed rails raised x2.
[2020-03-30] MEDS ORDERED: Albuterol/Ipratropium 3ml neb HHN PRN (23:00)
[2020-03-30] MEDS ORDERED: Milk of Magnesia 30ml Ud ORAL PRN (23:00)
[2020-03-31] VITALS: BP 127/87
[2020-03-31] MEDS: Morphine Sulfate 2mg/ml Inj(IV/IM USE ONLY) IVP PRN ×5 (03:41→22:21)
[2020-03-31 04:00] VITALS: BP 124/86
[2020-03-31] MEDS: NovoLOG Insulin Flexpen SUBQ SCH ×4 (05:55→21:00)
--- NOTE | 2020-03-31 07:35 | NUR ---
HAND-OFF: Report given to ADELE [place]. Patient stable.
--- NOTE | 2020-03-31 07:54 | NUR ---
NURSE NOTES: pt in bed just had breakfast. AOx4. Pt on floor worker well service,no signs of cardiac or respiratory distress. Pt call light within reach, bed in lowest position and locked, bed side rails up x2. pt complains of pain. will continue to monitor
[2020-03-31 08:00] VITALS: BP 147/78
[2020-03-31] MEDS: Cefepime HCl 2 GM in D5W 55 ML IV SCH ×2 (08:57→21:26)
[2020-03-31] MEDS: Ascorbic Acid 500mg tab ORAL SCH (09:00)
[2020-03-31] MEDS ORDERED: Heparin 5000 units/ml inj SUBQ SCH (09:00)
[2020-03-31] MEDS: Multivitamin w/Minerals tab ORAL SCH (09:01)
[2020-03-31] MEDS: Docusate 100mg cap ORAL SCH (09:02)
[2020-03-31] MEDS ORDERED: Hydroxychloroquine Fact Sheet MISC ONE (11:00)
[2020-03-31 12:00] VITALS: BP 127/75
--- NOTE | 2020-03-31 12:22 | Cardiac Electrophysiology PN ---
Subjective Subjective [id number] Objective Last 24 Hour Vital Signs Date Time Temp Pulse Resp B/P (MAP) Pulse Ox O2 Delivery O2 Flow Rate FiO2 03/31/20 09:30 97.7 03/31/20 08:59 84 147/78 03/31/20 08:00 97.7 84 18 147/78 (101) 94 03/31/20 04:00 84 03/31/20 04:00 97.0 86 16 124/86 (99) 97 03/31/20 00:00 97.6 82 16 127/87 (100) 95 03/31/20 00:00 78 03/30/20 21:21 Room Air 03/30/20 21:15 97.5 79 18 115/59 96 Room Air 03/30/20 21:06 97.5 79 18 115/59 96 Room Air 03/30/20 20:37 97.0 03/30/20 19:20 129/59 03/30/20 19:11 82 16 129/59 97 Room Air 03/30/20 18:00 84 14 Room Air 03/30/20 18:00 97.0 84 14 138/72 95 Room Air 03/30/20 17:53 97.0 84 14 138/72 (94) 95 Room Air Intake and Output 03/30/20 03/31/20 19:00 07:00 Intake Total 720 ml Output Total 1 ml 400 ml Balance -1 ml 320 ml Intake Oral 720 ml Output Urine Total 1 ml 400 ml # Bowel Movements 1 Laboratory Tests Test 03/30/20 18:25 03/30/20 18:30 White Blood Count 9.0 K/UL (4.8-10.8) Red Blood Count 5.60 M/UL (4.70-6.10) Hemoglobin 16.0 G/DL (14.2-18.0) Hematocrit 51.9 % (42.0-52.0) Mean Corpuscular Volume 93 FL (80-99) Mean Corpuscular Hemoglobin 28.5 PG (27.0-31.0) Mean Corpuscular Hemoglobin Concent 30.8 G/DL (32.0-36.0) L Red Cell Distribution Width 15.1 % (11.6-14.8) H Platelet Count 100 K/UL (150-450) L Mean Platelet Volume 11.8 FL (6.5-10.1) H Neutrophils (%) (Auto) 66.6 % (45.0-75.0) Lymphocytes (%) (Auto) 22.3 % (20.0-45.0) Monocytes (%) (Auto) 7.9 % (1.0-10.0) Eosinophils (%) (Auto) 2.2 % (0.0-3.0) Basophils (%) (Auto) 1.0 % (0.0-2.0) Urine Color Yellow Urine Appearance Clear Urine pH 6 (4.5-8.0) Urine Specific [place] 1.025 (1.005-1.035) Urine Protein Negative (NEGATIVE) Urine Glucose (UA) Negative (NEGATIVE) Urine Ketones Negative (NEGATIVE) Urine Blood 3+ (NEGATIVE) H Urine Nitrite Negative (NEGATIVE) Urine Bilirubin Negative (NEGATIVE) Urine Urobilinogen 1 MG/DL (0.0-1.0) H Urine Leukocyte Esterase 1+ (NEGATIVE) H Urine RBC 5-10 /HPF (0 - 0) H Urine WBC 15-20 /HPF (0 - 0) H Urine Squamous Epithelial Cells Occasional /LPF Urine Bacteria Few /HPF (NONE) Sodium Level 143 MMOL/L (136-145) Potassium Level 4.2 MMOL/L (3.5-5.1) Chloride Level 109 MMOL/L (98-107) H Carbon Dioxide Level 24 MMOL/L (21-32) Anion Gap 10 mmol/L (5-15) Blood Urea Nitrogen 12 mg/dL (7-18) Creatinine 0.8 MG/DL (0.55-1.30) Estimat Glomerular Filtration Rate > 60 mL/min (>60) Glucose Level 129 MG/DL (74-106) H Lactic Acid Level 1.20 mmol/L (0.4-2.0) Calcium Level 8.5 MG/DL (8.5-10.1) Total Bilirubin 0.5 MG/DL (0.2-1.0) Aspartate Amino Transf (AST/SGOT) 62 U/L (15-37) H Alanine Aminotransferase (ALT/SGPT) 88 U/L (12-78) H Alkaline Phosphatase 91 U/L (46-116) Total Creatine Kinase 94 U/L (26-308) Creatine Kinase MB 0.5 NG/ML (0.0-3.6) Creatine Kinase MB Relative Index 0.5 Troponin I 0.000 ng/mL (0.000-0.056) Total Protein 7.7 G/DL (6.4-8.2) Albumin 2.9 G/DL (3.4-5.0) L Globulin 4.8 g/dL Albumin/Globulin Ratio 0.6 (1.0-2.7) L Microbiology Date/Time Source Procedure Growth Status 03/30/20 18:30 Urine,Clean Catch Urine Culture - Preliminary NO GROWTH Resulted 03/30/20 18:30 Rectum Received Tu Benton MD March 31, 2020 12:22
--- NOTE | 2020-03-31 12:24 | NUR ---
NURSE NOTES: Plaquenil fact sheet given to pt. Pt aware of risk and benefits of taking medication.
[2020-03-31 16:00] VITALS: BP 131/63
[2020-03-31] MEDS ORDERED: LORazepam 1mg tab ORAL PRN (16:00)
--- NOTE | 2020-03-31 19:31 | NUR ---
HAND-OFF: Report given to Casper pt in stable condition. Addendum: 03/31/20 at 1933 by Megha Cuba RN HAND-OFF: Report given to Chet pt in stable condition
--- NOTE | 2020-03-31 19:50 | NUR ---
NURSE NOTES: Received pt from ADELE [place]. Pt awake, alert, and talkative. Bed in lowest position. Call light within reach. Will continue to monitor.
[2020-03-31 20:00] VITALS: BP 118/68
--- NOTE | 2020-03-31 20:44 | History and Physical Report ---
DATE OF ADMISSION: 03/30/2020 DATE AND TIME SEEN: On 03/31/2020 at 9 a.m. CONSULTANTS: 1. Tu Benton MD. 2. Quentin Jaramillo MD. 3. Alex Mccord MD. CHIEF COMPLAINT: Chest pain and shortness of breath. BRIEF HISTORY: This is a 54-year-old male from [facility], who presented with increased chest pain and shortness of breath. He came to [place] [facility] and diagnosed with UTI, pneumonia, sepsis, and COVID viral infection and admitted to telemetry for further care. Currently, sleeping in bed, not talking much. REVIEW OF SYSTEMS: Unavailable. PAST MEDICAL HISTORY: Diabetes, polyneuropathy, hypertension, COPD, BPH, weakness, schizophrenia, CVA, and left-sided hemiparesis. PAST SURGICAL HISTORY: Lumbar surgery. MEDICATIONS: Include Abilify, Lipitor, Senokot, Desyrel, heparin, Plavix, Colace, Proscar, Neurontin, and Lopressor. ALLERGIES: Tylenol, aspirin, and Toradol. SOCIAL HISTORY: Unable to obtain secondary to the patient is very sleepy. PHYSICAL EXAMINATION: GENERAL: Sleeping in bed, not talking much, lethargic, sleepy. VITAL SIGNS: Temperature is 97, pulse 84, respiratory rate 18, blood pressure 147/78. HEENT: Normocephalic, atraumatic. NECK: Trachea midline. CARDIOVASCULAR: No peripheral edema. PULMONARY: Comfortable breathing on room air. ABDOMEN: No apparent wounds. EXTREMITIES: Show no cyanosis or clubbing. LABORATORY DATA: Labs at this time show platelet 100,000, otherwise CBC is normal. BNP is 109. Glucose 129. Urinalysis, 3+ blood, 1+ leukocyte esterase. ASSESSMENT: Chest pain, shortness of breath, UTI, pneumonia, sepsis, COVID viral infection, thrombocytopenia, diabetes, hypertension, COPD, schizophrenia, CVA, and left-sided hemiparesis. PLAN: O2 and pulmonary treatment. Antibiotics per Infectious Disease. Blood pressure and blood sugar control. Dietary followup. PT and dietary evaluation. CBC and BMP in the monitoring. We will continue to follow this patient. Roberto Georges D.O. DR: Harmony JOB#: [id number] CC:
[2020-03-31] MEDS: Sennosides 8.6mg tab ORAL SCH (21:00)
[2020-03-31] MEDS: TraZODone 50mg tab ORAL SCH (21:26)
--- NOTE | 2020-03-31 22:00 | Consultation ---
DATE OF CONSULTATION: 03/31/2020 INFECTIOUS DISEASES CONSULTATION REFERRING PHYSICIAN: Roberto Georges M.D. REASON FOR CONSULTATION: COVID-19 pneumonia. HISTORY OF PRESENTING ILLNESS: This is a 54-year-old gentleman with history of hypertension, hyperlipidemia, coronary artery disease, and CVA, who comes in with shortness of breath and chest pain. He was tested positive for COVID-19 pneumonia. He has also been having some fevers. An Infectious Diseases consultation has been obtained for antibiotics. PAST MEDICAL HISTORY: 1. History of hypertension. 2. Hyperlipidemia. 3. Coronary artery disease. 4. CVA. 5. History of lumbar laminectomies. SOCIAL HISTORY: He is a smoker. He does not drink alcohol. Does not use drugs. FAMILY HISTORY: Positive for leukemia. REVIEW OF SYSTEMS: RESPIRATORY: He has fevers. He denies any cough. He has shortness of breath. He has chest pain. CARDIAC: He has chest pain. No palpitations. No dizziness. No syncope. GASTROINTESTINAL: No nausea. No vomiting. No abdominal pain or diarrhea. MEDICATIONS: As an inpatient, he is on Abilify, atorvastatin, senna, trazodone, cefepime, ascorbic acid, Plavix, docusate, Proscar, gabapentin, metoprolol, multivitamin, insulin, morphine, and milk of magnesia. ALLERGIES: 1. Acetaminophen. 2. Aspirin. 3. Fish. 4. Ketoralac. 5. NSAIDs. 6. Tramadol. PHYSICAL EXAMINATION: VITAL SIGNS: Temperature of 97.7, T-max of 97.7, pulse of 84, respiratory rate 18, blood pressure 147/78, and O2 saturation of 94%. Examination deferred due to COVID-19. LABORATORY AND DIAGNOSTIC DATA: White count of 9, hemoglobin 16, hematocrit 51.9, MCV 93, platelet count 100, neutrophils of 66%. Sodium 143, potassium 4.2, chloride 109, bicarb 24, BUN 12, creatinine 0.8, glucose 129, calcium 8.5. Total bilirubin 0.5, AST 62, ALT 88, alkaline phosphatase 91. CK of 94. CK-MB 0.5. Troponin 0. Total protein 7.7, albumin 2.9. UA showing 15 to 20 white cells. Urine cultures are negative. Chest x-ray is showing retrocardiac airspace opacity, atelectasis versus infiltrate. ASSESSMENT: This is a 54-year-old gentleman with history of hypertension, CVA, coronary artery disease who comes in with shortness of breath, fevers, and chest pain and is found to have: 1. COVID-19 pneumonia. 2. Urinary tract infection. 3. Hypertension. 4. Coronary artery disease. PLAN: 1. Continue IV cefepime. 2. We will start the patient on hydroxychloroquine. 3. We will follow up the patient clinically. 4. Continue isolation. I would like to thank, Dr. Roberto Georges, for this consultation. Alex Mccord M.D. DR: Robert JOB#: [id number] CC: Roberto Georges D.O.
--- NOTE | 2020-03-31 22:14 | Consultation ---
DATE OF CONSULTATION: 03/31/2020 HISTORY OF PRESENT ILLNESS: This is a 54[facility]-old [facility] resident who is admitted to the hospital with chest pain and shortness of breath. The patient has a history of CVA, hypertension, hyperlipidemia, chronic narcotic usage, CAD, and psych disorder. He apparently had tested positive recently for COVID-19. He also has chest pain and came to the hospital for evaluation and care. PAST MEDICAL HISTORY: Hypertension, hyperlipidemia, CAD, CVA, and psych disorder. PAST SURGICAL HISTORY: Lumbar laminectomy. ALLERGIES: Tylenol, aspirin, and Toradol. SOCIAL HISTORY: [facility] resident. HOME MEDICATIONS: Reviewed reconciled in chart and include Lipitor, Abilify, vitamin C, Plavix, Colace, Neurontin. Currently, the patient is using Plaquenil and azithromycin as well. REVIEW OF SYSTEMS: Denies any headaches, hematemesis, melena, or hematochezia. PHYSICAL EXAMINATION: GENERAL: Reveals a 54-year-old male. VITAL SIGNS: Blood pressure is 140/80, heart rate 84, respiratory is 18, afebrile, and O2 saturation 94% on room air. HEENT: Unremarkable. CHEST: Clear breath sounds bilaterally. ABDOMEN: Soft. EXTREMITIES: There is no edema. Nonfocal with moderate paralysis weakness of the left upper and lower extremity. LABORATORY DATA: Lab testing shows normal CBC and BMP. AST and ALT mildly elevated. IMAGING STUDIES: X-ray chest obtained, which shows left lower lobe infiltrate. IMPRESSION: 1. Left lung pneumonia. 2. CAD. 3. CVA. 4. Psych disorder. 5. Rule out COVID-19. DISCUSSION: Admitted to the hospital. The patient has been tested recently as an outpatient as positive for COVID-19. At this time, could start azithromycin and Plaquenil. Order oxygen and pulmonary hygiene. We will follow. Quentin Jaramillo M.D. DR: Gianna JOB#: [id number] CC:
--- NOTE | 2020-03-31 23:30 | Consultation ---
DATE OF CONSULTATION: 03/31/2020 REFERRING PHYSICIAN: Roberto Georges MD REASON FOR CONSULTATION: Chest pain and shortness of breath. HISTORY OF PRESENT ILLNESS: The patient is a 54-year-old gentleman with a history of hypertension, coronary artery disease and CVA, presented to the hospital for increasing chest pain and shortness of breath. The patient has residual left hemiparesis from prior stroke as well as psych disorder. The patient was recently tested possible COVID-19 and was in usual state of health until yesterday when he presented with left-sided chest pressure, radiation to left shoulder and arm as well as left side of the neck. The patient also had shortness of breath and felt feverish. The patient was admitted in isolation for COVID and Cardiology consultation requested for further evaluation. REVIEW OF SYSTEMS: Negative other than what was mentioned in the history of present illness. PAST MEDICAL HISTORY: As mentioned above. FAMILY HISTORY: Noncontributory. PHYSICAL EXAMINATION: VITAL SIGNS: Show blood pressure of 147/78, pulse 84, respirations 18, and temperature 97.7. HEAD AND NECK: Showed no JVD. LUNGS: Clear. CARDIOVASCULAR: Shows regular S1 and S2 with no gallop or murmur. ABDOMEN: Soft. EXTREMITIES: No pitting edema. LABORATORY DATA: Labs show white count of 9, hemoglobin of 16, hematocrit 52, and platelet count is 100. Sodium 142, potassium 4.2, BUN of 12, creatinine 0.8 and glucose of 129. Troponin is negative. ASSESSMENT AND PLAN: 1. Chest pain and shortness of breath, could be due to the patient's COVID pneumonia. His first troponin is negative. EKG does not show any acute ischemic changes. Repeat troponin, EKG and get an echocardiogram for further evaluation. In the meantime, continue the patient on metoprolol 25 mg b.i.d., Plavix and Lipitor. 2. Hyperlipidemia, on Lipitor. 3. Hypertension, on metoprolol 25 mg b.i.d. 4. Positive COVID. The patient is on Plaquenil. We will get an EKG to make sure QT is not prolonged. 5. Psych disorder, on Abilify. Thank you very much for allowing me to participate in the care of this patient. Please do not hesitate to contact me for any questions regarding my evaluation. Tu Benton M.D. DR: Kirstin JOB#: [id number] CC:
[2020-04-01] VITALS: BP 110/60
--- NOTE | 2020-04-01 02:29 | Consultation ---
DATE OF CONSULTATION: 03/31/2020 INITIAL PSYCHIATRIC EVALUATION HISTORY OF PRESENT ILLNESS: The patient is a 54-year-old male patient whom we admitted to the hospital. The patient came in for chest pain. This patient has a history of a lot of other medical problems such as hypertension, hyperlipidemia, CVA, left-sided hemiparesis, coronary artery disease, and rule out COVID-19, but also he has a diagnosis of paranoid schizophrenia, so daily psychiatric consultation requested this patient to be seen in psychiatric center. He has some increased mood lability, worsened by the stress of his medical illness. PAST MEDICAL HISTORY: The patient has a history of hypertension, hyperlipidemia, coronary artery disease, and CVA. ALLERGIES: Aspirin, ketorolac, NSAIDS, and acetaminophen. PSYCHOTROPIC MEDICATIONS ON ADMISSION: This patient is on a medication regimen of trazodone 50 mg at bedtime, he is also on Neurontin 600 mg 2 times a day and Abilify 5 mg at bedtime. SUBSTANCE ABUSE HISTORY: Denies drug or alcohol use. PAIN ASSESSMENT: 01/23. DEVELOPMENTAL PROBLEMS: Denies. SOCIAL HISTORY: He currently lives in [facility]. Financially supported by [employer] and Medicare. STRENGTHS: He is motivated to get better and has a place to live. WEAKNESSES: He is impulsive. Minimal support system. MENTAL STATUS EXAMINATION: This is a 54-year-old male. His appearance is disheveled. Attitude, irritable and agitated. Affect is labile. Intellect poor because he does not know current events and does not know last four presidents. Mood, depressed and anxious. Motor activity, psychomotor agitation. Attention span is poor because he cannot do serial 7's or spell world backwards. Orientation x2 person and place, not to time and situation. Speech is slightly nonsensical. Thought process, disorganized and illogical. Insight and judgment is poor. DIAGNOSES: 1. Paranoid schizophrenia with acute exacerbation. 2. No secondary. 3. Medical includes hypertension, hyperlipidemia, rule out COVID-19, and chest pain. 4. Psychosocial stressors, financial. 5. Functional impairment is mild. PLAN: Plan for this patient, treat him with Neurontin 300 mg 2 times a day, Abilify at a dose of 5 mg at bedtime, trazodone 50 mg p.o. at bedtime and also Ativan 1 mg every 6 hours p.r.n. anxiety and agitation. A 20 minutes of cognitive behavioral therapy to help him identify his automatic negative thoughts and help him convert those negative thoughts to more positive thoughts to reduce depression, anxiety, and mood lability. Chart was reviewed. Discussed with staff. The patient seen and assessed at the bedside. will be consulted for this patient as well for Psychology consultation. I would like to thank Dr. Roberto Georges for this interesting consultation. I will be happy to follow this patient with you throughout his hospital course. Amy Benites M.D. DR: Gio JOB#: [id number] CC:
[2020-04-01] MEDS: Morphine Sulfate 2mg/ml Inj(IV/IM USE ONLY) IVP PRN ×4 (02:42→14:59)
[2020-04-01 03:56] VITALS: BP 120/61
[2020-04-01 05:59] LABS: HEMATOCRIT 45.3 % (42.0-52.0); HEMOGLOBIN 15.2 G/DL (14.2-18.0); MEAN CORPUSCULAR VOLUME 87 FL (80-99); PLATELET COUNT 82 K/UL (150-450); RED CELL DISTRIBUTION WIDTH 13.7 % (11.6-14.8); WHITE BLOOD COUNT 7.5 K/UL (4.8-10.8)
[2020-04-01 06:18] LABS: ANION GAP 10 mmol/L (5-15); BLOOD UREA NITROGEN 14 mg/dL (7-18); CALCIUM 8.3 MG/DL (8.5-10.1); CARBON DIOXIDE 26 MMOL/L (21-32); CHLORIDE 108 MMOL/L (98-107); CREATININE 0.9 MG/DL (0.55-1.30); POTASSIUM 3.9 MMOL/L (3.5-5.1); SODIUM 144 MMOL/L (136-145)
[2020-04-01] MEDS: NovoLOG Insulin Flexpen SUBQ SCH ×4 (06:56→21:00)
--- NOTE | 2020-04-01 07:05 | NUR ---
HAND-OFF: Report given to [place]. pt stable.
--- NOTE | 2020-04-01 07:24 | NUR ---
NURSE NOTES: pt. in bed. just ate breakfast and is not complaining of pain at this time. pt on monitoring and evaluation advisor no signs of cardiac or respiratory distress at this time. Bed in lowest position and locked. call light within reach. Side rails up x2. will continue to monitor pt.
[2020-04-01 08:17] VITALS: BP 127/62
--- NOTE | 2020-04-01 08:34 | Pulmonology Progress Note ---
Subjective Interval Events: none new Constitutional: Reports: no symptoms HEENT: Repors: no symptoms Respiratory: Reports: no symptoms Cardiovascular: Reports: no symptoms Gastrointestinal/Abdominal: Reports: no symptoms Genitourinary: Reports: no symptoms Allergies: Coded Allergies: ACETAMINOPHEN (Verified Allergy, Unknown, 08/28/18) ASPIRIN (Verified Allergy, Unknown, 08/28/18) FISH DERIVED (Verified Allergy, Unknown, 10/19/19) KETOROLAC (Verified Allergy, Unknown, 08/28/18) NSAIDS (NON-STEROIDAL ANTI-INFLAMMA (Verified Allergy, Unknown, 09/09/18) TRAMADOL (Verified Allergy, Unknown, 10/19/19) Objective Last 24 Hour Vital Signs Date Time Temp Pulse Resp B/P (MAP) Pulse Ox O2 Delivery O2 Flow Rate FiO2 04/01/20 08:17 96.6 73 19 127/62 (83) 98 04/01/20 04:00 88 04/01/20 03:56 96.8 77 20 120/61 (80) 93 04/01/20 00:00 97.9 78 18 110/60 (77) 92 04/01/20 00:00 80 03/31/20 21:28 79 118/68 03/31/20 21:00 Room Air 03/31/20 20:00 78 03/31/20 20:00 98.9 79 20 118/68 (85) 92 03/31/20 16:00 98.1 78 19 131/63 (85) 94 03/31/20 16:00 79 03/31/20 12:00 97.7 81 18 127/75 (92) 93 03/31/20 12:00 76 03/31/20 09:30 97.7 03/31/20 09:00 Room Air 03/31/20 08:59 84 147/78 Intake and Output 03/31/20 04/01/20 19:00 07:00 Intake Total 1400 ml Output Total 501 ml 600 ml Balance 899 ml -600 ml Intake Oral 1400 ml Output Urine Total 500 ml 600 ml Stool Total 1 ml # Bowel Movements 2 1 General Appearance: no acute distress Respiratory: chest wall non-tender Cardiovascular: normal peripheral pulses Abdomen: normal bowel sounds Extremities: no cyanosis Microbiology Date/Time Source Procedure Growth Status 03/30/20 18:30 Blood Blood Culture - Preliminary NO GROWTH AFTER 24 HOURS Resulted 03/30/20 18:15 Blood Blood Culture - Preliminary NO GROWTH AFTER 24 HOURS Resulted 03/30/20 18:30 Urine,Clean Catch Urine Culture - Preliminary NO GROWTH Resulted 03/30/20 18:30 Rectum Received Laboratory Tests 03/31/20 14:05: Troponin I 0.000 04/01/20 04:00: Troponin I 0.006, White Blood Count 7.5, Red Blood Count 5.20, Hemoglobin 15.2, Hematocrit 45.3, Mean Corpuscular Volume 87, Mean Corpuscular Hemoglobin 29.2, Mean Corpuscular Hemoglobin Concent 33.5, Red Cell Distribution Width 13.7, Platelet Count 82L, Mean Platelet Volume 7.9, Neutrophils (%) (Auto) , Lymphocytes (%) (Auto) , Monocytes (%) (Auto) , Eosinophils (%) (Auto) , Basophils (%) (Auto) , Sodium Level 144, Potassium Level 3.9, Chloride Level 108H, Carbon Dioxide Level 26, Anion Gap 10, Blood Urea Nitrogen 14, Creatinine 0.9, Estimat Glomerular Filtration Rate > 60, Glucose Level 166H, Calcium Level 8.3L Current Medications Medications (Trade) Dose Ordered Sig/Hugo Route PRN Reason Start Time Stop Time Status Last Admin Dose Admin Aripiprazole (Abilify) 5 mg BEDTIME ORAL 03/31/20 21:00 05/15/20 20:59 03/31/20 21:26 Ascorbic Acid (Vitamin C) 500 mg DAILY ORAL 03/31/20 09:00 04/30/20 08:59 03/31/20 09:00 Atorvastatin Calcium (Lipitor) 20 mg BEDTIME ORAL 03/31/20 21:00 06/29/20 20:59 03/31/20 21:27 Cefepime HCl 2 gm/ Dextrose 55 ml @ 110 mls/hr EVERY 12 HOURS IV 03/31/20 09:00 04/07/20 08:59 03/31/20 21:26 Clopidogrel Bisulfate (Plavix) 75 mg DAILY ORAL 03/31/20 09:00 04/30/20 08:59 03/31/20 08:59 Dextrose (Dextrose 50%) 25 ml Q30M PRN IV Hypoglycemia 03/30/20 23:00 06/28/20 22:59 Dextrose (Dextrose 50%) 50 ml Q30M PRN IV Hypoglycemia 03/30/20 23:00 06/28/20 22:59 Docusate Sodium (Colace) 100 mg DAILY ORAL 03/31/20 09:00 04/30/20 08:59 03/31/20 09:02 Finasteride (Proscar) 5 mg DAILY ORAL 03/31/20 09:00 06/29/20 08:59 03/31/20 09:01 Gabapentin (Neurontin) 600 mg THREE TIMES A DAY ORAL 03/31/20 09:00 04/30/20 08:59 03/31/20 18:08 Hydroxychloroquine Sulfate (Plaquenil) 200 mg Q12HR ORAL 04/01/20 09:00 04/04/20 21:01 Insulin Aspart (NovoLOG) BEFORE MEALS AND HS SUBQ 03/31/20 06:30 06/29/20 06:29 04/01/20 06:56 Lorazepam (Ativan) 1 mg Q6H PRN ORAL For Anxiety 03/31/20 16:00 04/07/20 15:59 Magnesium Hydroxide (Mom) 30 ml DAILY PRN ORAL Constipation 03/30/20 23:00 04/29/20 22:59 Metoprolol Tartrate (Lopressor) 25 mg EVERY 12 HOURS ORAL 03/31/20 09:00 06/29/20 08:59 03/31/20 21:28 Morphine Sulfate (Morphine Sulfate) 2 mg Q4H PRN IVP For Pain 03/31/20 03:30 04/07/20 03:29 04/01/20 06:47 Multivitamins Therapeutic (Therapeutic Multivitamin) 1 ea DAILY ORAL 03/31/20 09:00 04/30/20 08:59 03/31/20 09:01 Sennosides (Senokot) 17.2 mg BEDTIME ORAL 03/31/20 21:00 04/30/20 20:59 Trazodone HCl (Desyrel) 50 mg BEDTIME ORAL 03/31/20 21:00 04/30/20 20:59 03/31/20 21:26 Assessment/Plan Assessment/Plan IMPRESSION: 1. Left lung pneumonia. 2. CAD. 3. CVA. 4. Psych disorder. 5. Rule out COVID-19. DISCUSSION: The patient has been tested recently as an outpatient as positive for COVID-19. Continue azithromycin and Plaquenil. Ordered oxygen and pulmonary hygiene. I will follow. SaO2 92 % on RA Angelina Fraire Omar Syed MD April 01, 2020 08:34
[2020-04-01] MEDS: Docusate 100mg cap ORAL SCH (09:39)
[2020-04-01] MEDS: Multivitamin w/Minerals tab ORAL SCH (09:40)
[2020-04-01] MEDS: Ascorbic Acid 500mg tab ORAL SCH (09:42)
[2020-04-01] MEDS: Cefepime HCl 2 GM in D5W 55 ML IV SCH ×2 (09:42→20:24)
--- NOTE | 2020-04-01 09:54 | General Progress Note ---
Assessment/Plan Problem List: (1) Diabetes ICD Codes: E11.9 - Type 2 diabetes mellitus without complications SNOMED: 58484080 (2) Neuropathy ICD Codes: G62.9 - Polyneuropathy, unspecified SNOMED: 531229493 (3) HTN (hypertension) ICD Codes: I10 - Essential (primary) hypertension SNOMED: 20762010 (4) Pneumonia due to COVID-19 virus ICD Codes: U07.1 - COVID-19; J12.89 - Other viral pneumonia SNOMED: 472719015, 468345926 (5) Chest pain ICD Codes: R07.9 - Chest pain, unspecified SNOMED: 69846263, 945580896 (6) History of CVA (cerebrovascular accident) ICD Codes: Z86.73 - Personal history of transient ischemic attack (TIA), and cerebral infarction without residual deficits SNOMED: 667813560 (7) Thrombocytopenia ICD Codes: D69.6 - Thrombocytopenia, unspecified SNOMED: 013506110 (8) UTI (urinary tract infection) ICD Codes: N39.0 - Urinary tract infection, site not specified SNOMED: 27208796 (9) ACS (acute coronary syndrome) ICD Codes: I24.9 - Acute ischemic heart disease, unspecified SNOMED: 040625005 Status: unchanged Assessment/Plan: o2 pulm tx prn abx pt diet eval cbc bmp am Subjective Constitutional: Reports: weakness Allergies: Coded Allergies: ACETAMINOPHEN (Verified Allergy, Unknown, 08/28/18) ASPIRIN (Verified Allergy, Unknown, 08/28/18) FISH DERIVED (Verified Allergy, Unknown, 10/19/19) KETOROLAC (Verified Allergy, Unknown, 08/28/18) NSAIDS (NON-STEROIDAL ANTI-INFLAMMA (Verified Allergy, Unknown, 09/09/18) TRAMADOL (Verified Allergy, Unknown, 10/19/19) All Systems: reviewed and negative except above Subjective sleepy in bed Objective Last 24 Hour Vital Signs Date Time Temp Pulse Resp B/P (MAP) Pulse Ox O2 Delivery O2 Flow Rate FiO2 04/01/20 09:40 73 127/62 04/01/20 09:08 Room Air 04/01/20 08:17 96.6 73 19 127/62 (83) 98 04/01/20 08:00 77 04/01/20 04:00 88 04/01/20 03:56 96.8 77 20 120/61 (80) 93 04/01/20 00:00 97.9 78 18 110/60 (77) 92 04/01/20 00:00 80 03/31/20 21:28 79 118/68 03/31/20 21:00 Room Air 03/31/20 20:00 78 03/31/20 20:00 98.9 79 20 118/68 (85) 92 03/31/20 16:00 98.1 78 19 131/63 (85) 94 03/31/20 16:00 79 03/31/20 12:00 97.7 81 18 127/75 (92) 93 03/31/20 12:00 76 Intake and Output 03/31/20 04/01/20 19:00 07:00 Intake Total 1400 ml Output Total 501 ml 600 ml Balance 899 ml -600 ml Intake Oral 1400 ml Output Urine Total 500 ml 600 ml Stool Total 1 ml # Bowel Movements 2 1 Laboratory Tests 03/31/20 14:05: Troponin I 0.000 04/01/20 04:00: Troponin I 0.006, White Blood Count 7.5, Red Blood Count 5.20, Hemoglobin 15.2, Hematocrit 45.3, Mean Corpuscular Volume 87, Mean Corpuscular Hemoglobin 29.2, Mean Corpuscular Hemoglobin Concent 33.5, Red Cell Distribution Width 13.7, Platelet Count 82L, Mean Platelet Volume 7.9, Neutrophils (%) (Auto) , Lymphocytes (%) (Auto) , Monocytes (%) (Auto) , Eosinophils (%) (Auto) , Basophils (%) (Auto) , Sodium Level 144, Potassium Level 3.9, Chloride Level 108H, Carbon Dioxide Level 26, Anion Gap 10, Blood Urea Nitrogen 14, Creatinine 0.9, Estimat Glomerular Filtration Rate > 60, Glucose Level 166H, Calcium Level 8.3L Height (Feet): 5 Height (Inches): 9.00 Weight (Pounds): 200 General Appearance: lethargic EENT: PERRL/EOMI Neck: normal alignment Cardiovascular: normal rate, regular rhythm Respiratory/Chest: no respiratory distress, no accessory muscle use Extremities: normal inspection Skin: normal pigmentation Roberto Georges DO April 01, 2020 09:54
[2020-04-01 12:00] VITALS: BP 125/66
--- NOTE | 2020-04-01 12:28 | Infectious Diseases Prog Note ---
Assessment/Plan Assessment/Plan A; 1. COVID-19 pneumonia. 2. Urinary tract infection. 3. Hypertension. 4. Coronary artery disease. 5. Paranoid schizophrenia PLAN: 1. Continue IV cefepime. 2. Continue hydroxychloroquine. 3. We will follow up the patient clinically. 4. Continue isolation. Subjective ROS Limited/Unobtainable: Yes Constitutional: Reports: no symptoms Respiratory: Reports: no symptoms Gastrointestinal/Abdominal: Reports: no symptoms Genitourinary: Reports: no symptoms Allergies: Coded Allergies: ACETAMINOPHEN (Verified Allergy, Unknown, 08/28/18) ASPIRIN (Verified Allergy, Unknown, 08/28/18) FISH DERIVED (Verified Allergy, Unknown, 10/19/19) KETOROLAC (Verified Allergy, Unknown, 08/28/18) NSAIDS (NON-STEROIDAL ANTI-INFLAMMA (Verified Allergy, Unknown, 09/09/18) TRAMADOL (Verified Allergy, Unknown, 10/19/19) Objective Vital Signs Last 24 Hour Vital Signs Date Time Temp Pulse Resp B/P (MAP) Pulse Ox O2 Delivery O2 Flow Rate FiO2 04/01/20 09:40 73 127/62 04/01/20 09:08 Room Air 04/01/20 08:17 96.6 73 19 127/62 (83) 98 04/01/20 08:00 77 04/01/20 04:00 88 04/01/20 03:56 96.8 77 20 120/61 (80) 93 04/01/20 00:00 97.9 78 18 110/60 (77) 92 04/01/20 00:00 80 03/31/20 21:28 79 118/68 03/31/20 21:00 Room Air 03/31/20 20:00 78 03/31/20 20:00 98.9 79 20 118/68 (85) 92 03/31/20 16:00 98.1 78 19 131/63 (85) 94 03/31/20 16:00 79 Height (Feet): 5 Height (Inches): 9.00 Weight (Pounds): 200 General Appearance: no acute distress HEENT: mucous membranes moist Respiratory/Chest: no respiratory distress Cardiovascular: normal rate Abdomen: soft, non tender Extremities: no edema Neurologic/Psychiatric: alert, responsive Microbiology Date/Time Source Procedure Growth Status 03/30/20 18:30 Blood Blood Culture - Preliminary NO GROWTH AFTER 24 HOURS Resulted 03/30/20 18:15 Blood Blood Culture - Preliminary NO GROWTH AFTER 24 HOURS Resulted 03/30/20 18:30 Urine,Clean Catch Urine Culture - Preliminary NO GROWTH AFTER 24 HOURS Resulted 03/30/20 18:30 Rectum Received Laboratory Tests Test 03/31/20 14:05 04/01/20 04:00 Troponin I 0.000 ng/mL (0.000-0.056) 0.006 ng/mL (0.000-0.056) White Blood Count 7.5 K/UL (4.8-10.8) Red Blood Count 5.20 M/UL (4.70-6.10) Hemoglobin 15.2 G/DL (14.2-18.0) Hematocrit 45.3 % (42.0-52.0) Mean Corpuscular Volume 87 FL (80-99) Mean Corpuscular Hemoglobin 29.2 PG (27.0-31.0) Mean Corpuscular Hemoglobin Concent 33.5 G/DL (32.0-36.0) Red Cell Distribution Width 13.7 % (11.6-14.8) Platelet Count 82 K/UL (150-450) L Mean Platelet Volume 7.9 FL (6.5-10.1) Neutrophils (%) (Auto) % (45.0-75.0) Lymphocytes (%) (Auto) % (20.0-45.0) Monocytes (%) (Auto) % (1.0-10.0) Eosinophils (%) (Auto) % (0.0-3.0) Basophils (%) (Auto) % (0.0-2.0) Sodium Level 144 MMOL/L (136-145) Potassium Level 3.9 MMOL/L (3.5-5.1) Chloride Level 108 MMOL/L (98-107) H Carbon Dioxide Level 26 MMOL/L (21-32) Anion Gap 10 mmol/L (5-15) Blood Urea Nitrogen 14 mg/dL (7-18) Creatinine 0.9 MG/DL (0.55-1.30) Estimat Glomerular Filtration Rate > 60 mL/min (>60) Glucose Level 166 MG/DL (74-106) H Calcium Level 8.3 MG/DL (8.5-10.1) L Current Medications Medications (Trade) Dose Ordered Sig/Hugo Route PRN Reason Start Time Stop Time Status Last Admin Dose Admin Aripiprazole (Abilify) 5 mg BEDTIME ORAL 03/31/20 21:00 05/15/20 20:59 03/31/20 21:26 Ascorbic Acid (Vitamin C) 500 mg DAILY ORAL 03/31/20 09:00 04/30/20 08:59 04/01/20 09:42 Atorvastatin Calcium (Lipitor) 20 mg BEDTIME ORAL 03/31/20 21:00 06/29/20 20:59 03/31/20 21:27 Cefepime HCl 2 gm/ Dextrose 55 ml @ 110 mls/hr EVERY 12 HOURS IV 03/31/20 09:00 04/07/20 08:59 04/01/20 09:42 Clopidogrel Bisulfate (Plavix) 75 mg DAILY ORAL 03/31/20 09:00 04/30/20 08:59 04/01/20 09:41 Dextrose (Dextrose 50%) 25 ml Q30M PRN IV Hypoglycemia 03/30/20 23:00 06/28/20 22:59 Dextrose (Dextrose 50%) 50 ml Q30M PRN IV Hypoglycemia 03/30/20 23:00 06/28/20 22:59 Docusate Sodium (Colace) 100 mg DAILY ORAL 03/31/20 09:00 04/30/20 08:59 04/01/20 09:39 Finasteride (Proscar) 5 mg DAILY ORAL 03/31/20 09:00 06/29/20 08:59 04/01/20 09:40 Gabapentin (Neurontin) 600 mg THREE TIMES A DAY ORAL 03/31/20 09:00 04/30/20 08:59 04/01/20 09:40 Hydroxychloroquine Sulfate (Plaquenil) 200 mg Q12HR ORAL 04/01/20 09:00 04/04/20 21:01 04/01/20 09:40 Insulin Aspart (NovoLOG) BEFORE MEALS AND HS SUBQ 03/31/20 06:30 06/29/20 06:29 04/01/20 06:56 Lorazepam (Ativan) 1 mg Q6H PRN ORAL For Anxiety 03/31/20 16:00 04/07/20 15:59 Magnesium Hydroxide (Mom) 30 ml DAILY PRN ORAL Constipation 03/30/20 23:00 04/29/20 22:59 Metoprolol Tartrate (Lopressor) 25 mg EVERY 12 HOURS ORAL 03/31/20 09:00 06/29/20 08:59 04/01/20 09:40 Morphine Sulfate (Morphine Sulfate) 2 mg Q4H PRN IVP For Pain 03/31/20 03:30 04/07/20 03:29 04/01/20 10:51 Multivitamins Therapeutic (Therapeutic Multivitamin) 1 ea DAILY ORAL 03/31/20 09:00 04/30/20 08:59 04/01/20 09:40 Sennosides (Senokot) 17.2 mg BEDTIME ORAL 03/31/20 21:00 04/30/20 20:59 Trazodone HCl (Desyrel) 50 mg BEDTIME ORAL 03/31/20 21:00 04/30/20 20:59 03/31/20 21:26 Christian Ventura MD April 01, 2020 12:28
--- NOTE | 2020-04-01 12:56 | Consultation ---
History of Present Illness General Chief Complaint: Chest Pain Present Illness Allergies: Coded Allergies: ACETAMINOPHEN (Verified Allergy, Unknown, 08/28/18) ASPIRIN (Verified Allergy, Unknown, 08/28/18) FISH DERIVED (Verified Allergy, Unknown, 10/19/19) KETOROLAC (Verified Allergy, Unknown, 08/28/18) NSAIDS (NON-STEROIDAL ANTI-INFLAMMA (Verified Allergy, Unknown, 09/09/18) TRAMADOL (Verified Allergy, Unknown, 10/19/19) Medication History Scheduled Aripiprazole* (Abilify*), 4 MG ORAL BEDTIME, (Reported) Ascorbic Acid* (Vitamin C*), 500 MG ORAL DAILY, (Reported) Atorvastatin Calcium* (Atorvastatin Calcium*), 20 MG ORAL BEDTIME, (Reported) Bisacodyl (Bisacodyl), 10 MG RC PRN, (Reported) Clopidogrel Bisulfate* (Plavix*), 75 MG ORAL DAILY, (Reported) Clopidogrel Bisulfate* (Plavix*), 75 MG ORAL DAILY, (Reported) Docusate Sodium* (Colace*), 100 MG ORAL DAILY, (Reported) Famotidine* (Pepcid 20mg tablet*), 20 MG ORAL DAILY, (Reported) Finasteride* (Proscar*), 5 MG ORAL DAILY, (Reported) Gabapentin* (Gabapentin*), 600 MG ORAL THREE TIMES A DAY, (Reported) Ibuprofen* (Motrin Ib*), 200 MG ORAL THREE TIMES A DAY, (Reported) Mag Hydrox/Aluminum Hyd/Simeth (Mylanta Maximum Strength Liq), 30 ML PO Q4HR, ( Reported) Metoprolol Tartrate* (Metoprolol Tartrate*), 25 MG ORAL EVERY 12 HOURS, ( Reported) Multivitamin With Minerals (Multivitamins With Minerals*), 1 TAB ORAL DAILY, ( Reported) Na Phos,M-B/Na Phos,Di-Ba* (Fleet Enema*), 133 ML RECTAL DAILY, (Reported) Sennosides (Senna), 2 TAB PO BEDTIME, (Reported) Sertraline Hcl* (Zoloft*), 25 MG ORAL DAILY, (Reported) Trazodone Hcl* (Desyrel*), 50 MG ORAL BEDTIME, (Reported) Scheduled PRN Acetaminophen* (Acetaminophen 325MG Tablet*), 650 MG ORAL Q4H PRN for Mild Pain/ Temp > 100.5, (Reported) Ipratropium/Albuterol Sulfate (DuoNeb 0.5-3(2.5)mg/3ml), 3 ML HHN Q4HR PRN for Shortness of Breath, (Reported) Mag Hydrox/Al Hydrox/Simeth* (Advanced Antacid Liquid*), 30 ML ORAL FOUR TIMES A DAY PRN for STOMACH UPSET, (Reported) Magnesium Hydroxide* (Milk Of Magnesia*), 30 ML ORAL DAILY PRN for Constipation, (Reported) Na Phos,M-B/Na Phos,Di-Ba* (Fleet Enema*), 133 ML RECTAL QOD PRN for IF BISACODYL INEFFECTIVE, (Reported) Nitroglycerin (Nitrostat), 0.4 MG SL Q5M X3 DOSES PRN for CHEST PAIN, (Reported) Miscellaneous Medications Insulin Lispro (Humalog), 0 SUBQ, (Reported) Patient History Healthcare decision maker Resuscitation status Advanced Directive on File Physical Exam Last 24 Hour Vital Signs Date Time Temp Pulse Resp B/P (MAP) Pulse Ox O2 Delivery O2 Flow Rate FiO2 04/01/20 09:40 73 127/62 04/01/20 09:08 Room Air 04/01/20 08:17 96.6 73 19 127/62 (83) 98 04/01/20 08:00 77 04/01/20 04:00 88 04/01/20 03:56 96.8 77 20 120/61 (80) 93 04/01/20 00:00 97.9 78 18 110/60 (77) 92 04/01/20 00:00 80 03/31/20 21:28 79 118/68 03/31/20 21:00 Room Air 03/31/20 20:00 78 03/31/20 20:00 98.9 79 20 118/68 (85) 92 03/31/20 16:00 98.1 78 19 131/63 (85) 94 03/31/20 16:00 79 Intake and Output 03/31/20 04/01/20 19:00 07:00 Intake Total 1400 ml Output Total 501 ml 600 ml Balance 899 ml -600 ml Intake Oral 1400 ml Output Urine Total 500 ml 600 ml Stool Total 1 ml # Bowel Movements 2 1 Laboratory Tests Test 03/31/20 14:05 5/17/20 04:00 Troponin I 0.000 ng/mL (0.000-0.056) 0.006 ng/mL (0.000-0.056) White Blood Count 7.5 K/UL (4.8-10.8) Red Blood Count 5.20 M/UL (4.70-6.10) Hemoglobin 15.2 G/DL (14.2-18.0) Hematocrit 45.3 % (42.0-52.0) Mean Corpuscular Volume 87 FL (80-99) Mean Corpuscular Hemoglobin 29.2 PG (27.0-31.0) Mean Corpuscular Hemoglobin Concent 33.5 G/DL (32.0-36.0) Red Cell Distribution Width 13.7 % (11.6-14.8) Platelet Count 82 K/UL (150-450) L Mean Platelet Volume 7.9 FL (6.5-10.1) Neutrophils (%) (Auto) % (45.0-75.0) Lymphocytes (%) (Auto) % (20.0-45.0) Monocytes (%) (Auto) % (1.0-10.0) Eosinophils (%) (Auto) % (0.0-3.0) Basophils (%) (Auto) % (0.0-2.0) Sodium Level 144 MMOL/L (136-145) Potassium Level 3.9 MMOL/L (3.5-5.1) Chloride Level 108 MMOL/L (98-107) H Carbon Dioxide Level 26 MMOL/L (21-32) Anion Gap 10 mmol/L (5-15) Blood Urea Nitrogen 14 mg/dL (7-18) Creatinine 0.9 MG/DL (0.55-1.30) Estimat Glomerular Filtration Rate > 60 mL/min (>60) Glucose Level 166 MG/DL (74-106) H Calcium Level 8.3 MG/DL (8.5-10.1) L Height (Feet): 5 Height (Inches): 9.00 Weight (Pounds): 200 Medications Current Medications Medications (Trade) Dose Ordered Sig/Hugo Route PRN Reason Start Time Stop Time Status Last Admin Dose Admin Aripiprazole (Abilify) 5 mg BEDTIME ORAL 03/31/20 21:00 05/15/20 20:59 03/31/20 21:26 Ascorbic Acid (Vitamin C) 500 mg DAILY ORAL 03/31/20 09:00 04/30/20 08:59 04/01/20 09:42 Atorvastatin Calcium (Lipitor) 20 mg BEDTIME ORAL 03/31/20 21:00 06/29/20 20:59 03/31/20 21:27 Cefepime HCl 2 gm/ Dextrose 55 ml @ 110 mls/hr EVERY 12 HOURS IV 03/31/20 09:00 04/07/20 08:59 04/01/20 09:42 Clopidogrel Bisulfate (Plavix) 75 mg DAILY ORAL 03/31/20 09:00 04/30/20 08:59 04/01/20 09:41 Dextrose (Dextrose 50%) 25 ml Q30M PRN IV Hypoglycemia 03/30/20 23:00 06/28/20 22:59 Dextrose (Dextrose 50%) 50 ml Q30M PRN IV Hypoglycemia 03/30/20 23:00 06/28/20 22:59 Docusate Sodium (Colace) 100 mg DAILY ORAL 03/31/20 09:00 04/30/20 08:59 04/01/20 09:39 Finasteride (Proscar) 5 mg DAILY ORAL 03/31/20 09:00 06/29/20 08:59 04/01/20 09:40 Gabapentin (Neurontin) 600 mg THREE TIMES A DAY ORAL 03/31/20 09:00 04/30/20 08:59 04/01/20 12:39 Hydroxychloroquine Sulfate (Plaquenil) 200 mg Q12HR ORAL 04/01/20 09:00 04/04/20 21:01 04/01/20 09:40 Insulin Aspart (NovoLOG) BEFORE MEALS AND HS SUBQ 03/31/20 06:30 06/29/20 06:29 04/01/20 06:56 Lorazepam (Ativan) 1 mg Q6H PRN ORAL For Anxiety 03/31/20 16:00 04/07/20 15:59 Magnesium Hydroxide (Mom) 30 ml DAILY PRN ORAL Constipation 03/30/20 23:00 04/29/20 22:59 Metoprolol Tartrate (Lopressor) 25 mg EVERY 12 HOURS ORAL 03/31/20 09:00 06/29/20 08:59 04/01/20 09:40 Morphine Sulfate (Morphine Sulfate) 2 mg Q4H PRN IVP For Pain 03/31/20 03:30 04/07/20 03:29 04/01/20 10:51 Multivitamins Therapeutic (Therapeutic Multivitamin) 1 ea DAILY ORAL 03/31/20 09:00 04/30/20 08:59 04/01/20 09:40 Sennosides (Senokot) 17.2 mg BEDTIME ORAL 03/31/20 21:00 04/30/20 20:59 Trazodone HCl (Desyrel) 50 mg BEDTIME ORAL 03/31/20 21:00 04/30/20 20:59 03/31/20 21:26 Assessment/Plan Assessment/Plan: Hematology/Oncology Consultation Requesting MD: Gagan Georges Date of Service: 04/01/2020 Reason for consultation:Thrombocytopenia HISTORY OF PRESENT ILLNESS: 54y old male, well knownt o me from before, hx hep c, htn, The patient is here because of chest pain for two days. The patient denies shortness of breath. Denies nausea, vomiting, or diarrhea. The patient's chest pain radiates to the left arm. It has been going on for two days. Denies palpitation. Denies shortness of breath. Denies cough. Denies fever or chills. The patient also has elevated LFTs and apparently has history of gallstones and cirrhosis. Hematology/Oncology was consulted for Thrombocytopenia, Plt 82.and before was 100k PAST MEDICAL HISTORY History of CVA with left hemiparesis, History of rheumatic fever, Hyperlipidemia, GERD, Renal calculi, UTI, BPH. Hep C ALLERGIES: Acetaminophen, aspirin, ketorolac, and NSAIDs. FAMILY HISTORY: No premature coronary artery disease in the first-degree relatives. PAST SURGICAL HISTORY: None. REVIEW OF SYSTEMS: HEENT: Denies any headache, diplopia, or blurred vision. CONSTITUTIONAL: Denies any fever, chills, night sweats, or weight loss. CARDIOVASCULAR: Complains of chest pain, but no shortness of breath, PND, orthopnea, leg swelling, or syncope. PULMONARY: Denies any cough, hemoptysis, or wheezing. GASTROINTESTINAL: Denies any nausea, vomiting, diarrhea, constipation, abdominal pain, or GI bleed. GENITOURINARY: Denies any hematuria, dysuria, or incontinence. NEUROLOGY: History of left-sided weakness due to prior stroke. No altered speech. MEDICATIONS: List of medication includes: 1. Abilify 5 mg p.o. at bedtime. 2. Atorvastatin 20 mg p.o. at bedtime. 3. Bisacodyl 10 mg rectal p.r.n. constipation. 4. Soma 350 mg q.i.d. 5. Plavix 75 mg daily. 6. Cranberry 900 mg twice daily. 7. Colace 100 mg daily. 8. Famotidine 20 mg p.o. before meals. 9. Proscar 5 mg p.o. daily. 10. Folic acid 1 mg daily. 11. Gabapentin 600 mg three times a day. 12. Lactulose 30 mL p.o. daily. 13. Milk of magnesia 30 mL nightly p.r.n. constipation. 14. Metoprolol 25 mg q.12 h. 15. Multivitamin one tablet p.o. daily. 16. Fleet Enema 133 mL rectal every other day p.r.n. constipation. 17. Zoloft 50 mg p.o. daily. 18. Tamsulosin 0.4 mg twice daily. 19. Tramadol 50 mg q.8 h. p.r.n. severe pain. 20. Trazodone 50 mg at bedtime. PHYSICAL EXAMINATION: VITAL SIGNS: Reviewed GENERAL: This is a very unfortunate 53-year-old gentleman, chronically ill, in no apparent respiratory distress. HEENT: Atraumatic and normocephalic. Anicteric. perrl. NECK: JVP is less than 5 cm. No carotid bruits. Carotid upstrokes 2+ bilaterally. CARDIOVASCULAR: Normal S1 and S2. Regular rate and rhythm. No murmurs, gallops, or rubs. PMI is at fourth intercostal space at the midclavicular line. LUNGS: Clear to auscultation bilaterally. ABDOMEN: Soft, nontender, and nondistended. No hepatosplenomegaly. Positive bowel sounds. EXTREMITIES: No evidence of edema, clubbing, or cyanosis. LABORATORY FINDINGS: 12/2018 WBC 5.8, hemoglobin of 15.1, and platelet count is 82. /03/04: wbc 8, hgb 16, plt 94k ASSESSMENT AND PLAN: # Thrombocytopenia - potential causes multifactorial, in this case, most likely related to HEP C that is chronic, labs noted, also with COVID19+++++ --> Hep panel and HIV reviewed from before, HEP C+++ --> US abd to evaluate for cirrhosis and hsm reviewed and neg from before --> Peripheral smear ordered to evaluate for blasts /schistocytes --> abx and other meds have been reviewed --> ok for ppx if plt >50k w/ either heparin or lovenox --> Transfuse if Plt < 20k and fever, or if Plt < 10k without fever --> plt 100-->82k # Atypical chest pain, AMI is ruled out, no ischemic changes on ECG, no wall motion abnormalities. --> per cards, Continue conservative management. --> per [facility] # HCV infection. --> afp and us as needed # Hx of CAD, s/p HI. --> per cards # Hx of CVA with left hemiparesis. Continue ASA and statins. # Hx of renal calculi. # Dvt ppx scds The timing of this note does not necessarily reflect the time of the patient was seen. Greatly appreciate consultation! Bebo Agustin MD April 01, 2020 12:56
--- NOTE | 2020-04-01 13:53 | Cardiac Electrophysiology PN ---
Assessment/Plan Assessment/Plan 1. Chest pain and shortness of breath, could be due to the patient's COVID pneumonia. All troponins are negative. EKG does not show any acute ischemic changes. Echocardiogram pending and continue metoprolol 25 mg b.i.d., Plavix and Lipitor. 2. Hyperlipidemia, on Lipitor. 3. Hypertension, on metoprolol 25 mg b.i.d. 4. Positive COVID. The patient is on Plaquenil. We will get an EKG to make sure QT is not prolonged. 5. Psych disorder, on Abilify. Subjective Subjective No new events on tele Objective Last 24 Hour Vital Signs Date Time Temp Pulse Resp B/P (MAP) Pulse Ox O2 Delivery O2 Flow Rate FiO2 04/01/20 09:40 73 127/62 04/01/20 09:08 Room Air 04/01/20 08:17 96.6 73 19 127/62 (83) 98 04/01/20 08:00 77 04/01/20 04:00 88 04/01/20 03:56 96.8 77 20 120/61 (80) 93 04/01/20 00:00 97.9 78 18 110/60 (77) 92 04/01/20 00:00 80 03/31/20 21:28 79 118/68 03/31/20 21:00 Room Air 03/31/20 20:00 78 03/31/20 20:00 98.9 79 20 118/68 (85) 92 03/31/20 16:00 98.1 78 19 131/63 (85) 94 03/31/20 16:00 79 Intake and Output 03/31/20 04/01/20 19:00 07:00 Intake Total 1400 ml Output Total 501 ml 600 ml Balance 899 ml -600 ml Intake Oral 1400 ml Output Urine Total 500 ml 600 ml Stool Total 1 ml # Bowel Movements 2 1 Laboratory Tests Test 03/31/20 14:05 04/01/20 04:00 Troponin I 0.000 ng/mL (0.000-0.056) 0.006 ng/mL (0.000-0.056) White Blood Count 7.5 K/UL (4.8-10.8) Red Blood Count 5.20 M/UL (4.70-6.10) Hemoglobin 15.2 G/DL (14.2-18.0) Hematocrit 45.3 % (42.0-52.0) Mean Corpuscular Volume 87 FL (80-99) Mean Corpuscular Hemoglobin 29.2 PG (27.0-31.0) Mean Corpuscular Hemoglobin Concent 33.5 G/DL (32.0-36.0) Red Cell Distribution Width 13.7 % (11.6-14.8) Platelet Count 82 K/UL (150-450) L Mean Platelet Volume 7.9 FL (6.5-10.1) Neutrophils (%) (Auto) % (45.0-75.0) Lymphocytes (%) (Auto) % (20.0-45.0) Monocytes (%) (Auto) % (1.0-10.0) Eosinophils (%) (Auto) % (0.0-3.0) Basophils (%) (Auto) % (0.0-2.0) Sodium Level 144 MMOL/L (136-145) Potassium Level 3.9 MMOL/L (3.5-5.1) Chloride Level 108 MMOL/L (98-107) H Carbon Dioxide Level 26 MMOL/L (21-32) Anion Gap 10 mmol/L (5-15) Blood Urea Nitrogen 14 mg/dL (7-18) Creatinine 0.9 MG/DL (0.55-1.30) Estimat Glomerular Filtration Rate > 60 mL/min (>60) Glucose Level 166 MG/DL (74-106) H Calcium Level 8.3 MG/DL (8.5-10.1) L Microbiology Date/Time Source Procedure Growth Status 03/30/20 18:30 Blood Blood Culture - Preliminary NO GROWTH AFTER 24 HOURS Resulted 03/30/20 18:15 Blood Blood Culture - Preliminary NO GROWTH AFTER 24 HOURS Resulted 03/30/20 18:30 Urine,Clean Catch Urine Culture - Preliminary NO GROWTH AFTER 24 HOURS Resulted 03/30/20 18:30 Rectum Received Objective HEAD AND NECK: No JVD. LUNGS: Clear. CARDIOVASCULAR: Shows regular S1 and S2 with no gallop or murmur. ABDOMEN: Soft. EXTREMITIES: No pitting edema. Tu Benton MD April 01, 2020 13:53
--- NOTE | 2020-04-01 14:59 | NUR ---
PT Note PT ignacio completed. Patient is at baseline level of function. No further PT needed at this time. RN was notified of patient's c/o left knee pain. Addendum: 04/01/20 at 1505 by RAY FONTANA PT Amended: Links added.
[2020-04-01] MEDS ORDERED: NS 275ml ONE (15:53)
[2020-04-01 16:00] VITALS: BP 108/58
--- NOTE | 2020-04-01 17:44 | Progress Note ---
DATE: 04/01/2020 SUBJECTIVE: This is a 54-year-old male, altered mental status, confusion, decline in cognition below his baseline that is why his attending has requested daily psychiatric consultation. I saw and assessed the patient in his room. He does have some confusion, disorganized thought process, mood lability, but he also has lot of agitation, irritability, and racing thoughts. MENTAL STATUS EXAMINATION: A 54-year-old male. Appearance is disheveled. Attitude, irritable and agitated. Affect, guarded and restricted. Intellect poor. Mood, depressed and anxious. Motor activity, psychomotor agitation. Insight and judgment poor. DIAGNOSES: He has acute coronary syndrome, rule out COVID-19. PLAN: Continue treatment with his mood stabilizer meds. Medical problems have caused increased stress and mood lability. 20 minutes of cognitive behavioral therapy provided. Chart was reviewed. Discussed with staff. Seen and assessed at the bedside. Amy Benites M.D. DR: Betty JOB#: [id number] CC:
--- NOTE | 2020-04-01 19:37 | NUR ---
HAND-OFF: Report given to Karyn/ADELE. pt in stable condition, needs to be turn.
[2020-04-01 20:00] VITALS: BP 121/56
--- NOTE | 2020-04-01 20:23 | NUR ---
HANDOFF REPORT Received pt awake A&OX4 C/O right hip and flank pain 06/25. Request pain med.
[2020-04-01] MEDS: Sennosides 8.6mg tab ORAL SCH (20:25)
[2020-04-01] MEDS: TraZODone 50mg tab ORAL SCH (20:25)
--- NOTE | 2020-04-01 20:25 | NUR ---
Pt medicated with MSO4 2mg for pain. Noted med not scanned when time to give the 2nd dose.Pt stated pain level 8/10 at that time. Reaccessed and pain down to 6/10 which pt stated is "doable" for him.
[2020-04-02] VITALS (7 sets, daily range): BP systolic 109–137; BP diastolic 55–81
[2020-04-02] MEDS: Morphine Sulfate 2mg/ml Inj(IV/IM USE ONLY) IVP PRN ×5 (02:15→20:12)
[2020-04-02] MEDS: NovoLOG Insulin Flexpen SUBQ SCH ×4 (06:30→21:00)
[2020-04-02 06:52] LABS: HEMATOCRIT 44.6 % (42.0-52.0); MEAN CORPUSCULAR VOLUME 86 FL (80-99); PLATELET COUNT 73 K/UL (150-450); RED BLOOD COUNT 5.16 M/UL (4.70-6.10); RED CELL DISTRIBUTION WIDTH 13.7 % (11.6-14.8); WHITE BLOOD COUNT 6.6 K/UL (4.8-10.8)
--- NOTE | 2020-04-02 07:00 | NUR ---
HANDOFF REPORT Verbal report to Landen ANGULO. Pt awake in bed. Continue isolation per covid protocol..Afebrile. No resp. distress. No chest pain. Medicated X3 thru out shift for right hip and flank pain. with relief 5-6/10 at best which pt states is "doable" for him.
[2020-04-02 07:14] LABS: ANION GAP 9 mmol/L (5-15); BLOOD UREA NITROGEN 12 mg/dL (7-18); CALCIUM 8.1 MG/DL (8.5-10.1); CARBON DIOXIDE 23 MMOL/L (21-32); CHLORIDE 108 MMOL/L (98-107); CREATININE 0.9 MG/DL (0.55-1.30); POTASSIUM 3.9 MMOL/L (3.5-5.1); SODIUM 140 MMOL/L (136-145)
--- NOTE | 2020-04-02 07:53 | NUR ---
NURSE NOTES: Received report from ADELE Boss. Pt is awake and alert. pt is on RA, no SOB or acute respiratory distress noted. pt has intact iv access RH 20G SL. Pt is on continues heart monitoring. no complain of pain at this moment. all needs attended, bed is locked and is in the lowest position. call light within easy reach. will continue to monitor.
--- NOTE | 2020-04-02 09:01 | Cardiac Electrophysiology PN ---
Assessment/Plan Assessment/Plan 1. Chest pain and shortness of breath, due to the patient's COVID pneumonia. All troponins are negative. EKG no acute ischemic changes. Echocardiogram Nl EF. On metoprolol 25 mg b.i.d., Plavix and Lipitor. 2. Hyperlipidemia, on Lipitor. 3. Hypertension, on metoprolol 25 mg b.i.d. 4. Positive COVID. Still on Plaquenil. Repeat EKG to make sure QT is not prolonged. 5. Psych disorder, on Abilify. BETZY RN Subjective Subjective No new events on tele. Persistently asking for morphine. On iv Abx Objective Last 24 Hour Vital Signs Date Time Temp Pulse Resp B/P (MAP) Pulse Ox O2 Delivery O2 Flow Rate FiO2 04/02/20 04:00 69 04/02/20 04:00 98.8 90 18 137/77 (97) 93 04/02/20 00:00 97.7 72 19 131/60 (83) 94 04/02/20 00:00 69 04/01/20 21:00 Room Air 04/01/20 21:00 74 129/56 04/01/20 20:00 97.0 69 20 121/56 (77) 94 04/01/20 20:00 72 04/01/20 16:00 96.8 69 18 108/58 (75) 96 04/01/20 12:00 96.7 74 19 125/66 (85) 98 04/01/20 12:00 78 04/01/20 09:40 73 127/62 04/01/20 09:08 Room Air Intake and Output 04/01/20 04/02/20 19:00 07:00 Intake Total 140 ml Output Total 1200 ml 1120 ml Balance -1060 ml -1120 ml Intake Oral 140 ml Output Urine Total 1200 ml 1120 ml # Bowel Movements 1 1 Laboratory Tests Test 04/02/20 05:54 White Blood Count 6.6 K/UL (4.8-10.8) Red Blood Count 5.16 M/UL (4.70-6.10) Hemoglobin 15.0 G/DL (14.2-18.0) Hematocrit 44.6 % (42.0-52.0) Mean Corpuscular Volume 86 FL (80-99) Mean Corpuscular Hemoglobin 29.1 PG (27.0-31.0) Mean Corpuscular Hemoglobin Concent 33.6 G/DL (32.0-36.0) Red Cell Distribution Width 13.7 % (11.6-14.8) Platelet Count 73 K/UL (150-450) L Mean Platelet Volume 9.6 FL (6.5-10.1) Neutrophils (%) (Auto) % (45.0-75.0) Lymphocytes (%) (Auto) % (20.0-45.0) Monocytes (%) (Auto) % (1.0-10.0) Eosinophils (%) (Auto) % (0.0-3.0) Basophils (%) (Auto) % (0.0-2.0) Neutrophils % (Manual) Pending Lymphocytes % (Manual) Pending Platelet Estimate Pending Platelet Morphology Pending Sodium Level 140 MMOL/L (136-145) Potassium Level 3.9 MMOL/L (3.5-5.1) Chloride Level 108 MMOL/L (98-107) H Carbon Dioxide Level 23 MMOL/L (21-32) Anion Gap 9 mmol/L (5-15) Blood Urea Nitrogen 12 mg/dL (7-18) Creatinine 0.9 MG/DL (0.55-1.30) Estimat Glomerular Filtration Rate > 60 mL/min (>60) Glucose Level 109 MG/DL (74-106) H Calcium Level 8.1 MG/DL (8.5-10.1) L Microbiology Date/Time Source Procedure Growth Status 03/30/20 18:30 Blood Blood Culture - Preliminary NO GROWTH AFTER 48 HOURS Resulted 03/30/20 18:15 Blood Blood Culture - Preliminary NO GROWTH AFTER 48 HOURS Resulted 03/30/20 18:30 Nasal Nares MRSA Culture - Final Staphylococcus Aureus - Mrsa Complete 03/30/20 18:30 Urine,Clean Catch Urine Culture - Final NO GROWTH AFTER 48 HOURS Complete 03/30/20 18:30 Rectum - Final NO CARBAPENEM-RESISTANT ENTEROBACTERI... Complete 03/30/20 18:30 Rectum VRE Culture - Final NO VANCOMYCIN RESISTANT ENTEROCOCCUS ... Complete Objective HEAD AND NECK: No JVD. LUNGS: Clear. CARDIOVASCULAR: Regular S1 and S2 with no gallop or murmur. ABDOMEN: Soft. EXTREMITIES: No pitting edema. Tu Benton MD April 02, 2020 09:01
[2020-04-02] MEDS: Multivitamin w/Minerals tab ORAL SCH (09:10)
[2020-04-02] MEDS: Ascorbic Acid 500mg tab ORAL SCH (09:10)
[2020-04-02] MEDS: Docusate 100mg cap ORAL SCH (09:10)
[2020-04-02] MEDS: Cefepime HCl 2 GM in D5W 55 ML IV SCH (09:11)
--- NOTE | 2020-04-02 09:30 | NUR ---
NURSE NOTES: ECG done and the result sent to Dr Ly, waiting to call back. will continue to monitor.
--- NOTE | 2020-04-02 09:31 | Pulmonology Progress Note ---
Subjective ROS Limited/Unobtainable: Yes Interval Events: none new Constitutional: Reports: no symptoms HEENT: Repors: no symptoms Respiratory: Reports: no symptoms Cardiovascular: Reports: no symptoms Gastrointestinal/Abdominal: Reports: no symptoms Genitourinary: Reports: no symptoms Allergies: Coded Allergies: ACETAMINOPHEN (Verified Allergy, Unknown, 08/28/18) ASPIRIN (Verified Allergy, Unknown, 08/28/18) FISH DERIVED (Verified Allergy, Unknown, 10/19/19) KETOROLAC (Verified Allergy, Unknown, 08/28/18) NSAIDS (NON-STEROIDAL ANTI-INFLAMMA (Verified Allergy, Unknown, 09/09/18) TRAMADOL (Verified Allergy, Unknown, 10/19/19) All Systems: reviewed and negative except above Objective Last 24 Hour Vital Signs Date Time Temp Pulse Resp B/P (MAP) Pulse Ox O2 Delivery O2 Flow Rate FiO2 04/02/20 09:10 74 109/55 04/02/20 08:00 97.9 74 20 109/55 (73) 93 04/02/20 04:00 69 04/02/20 04:00 98.8 90 18 137/77 (97) 93 04/02/20 00:00 97.7 72 19 131/60 (83) 94 04/02/20 00:00 69 04/01/20 21:00 Room Air 04/01/20 21:00 74 129/56 04/01/20 20:00 97.0 69 20 121/56 (77) 94 04/01/20 20:00 72 04/01/20 16:00 96.8 69 18 108/58 (75) 96 04/01/20 12:00 96.7 74 19 125/66 (85) 98 04/01/20 12:00 78 04/01/20 09:40 73 127/62 Intake and Output 04/01/20 04/02/20 19:00 07:00 Intake Total 140 ml 55 ml Output Total 1200 ml 1120 ml Balance -1060 ml -1065 ml Intake Oral 140 ml IV Total 55 ml Output Urine Total 1200 ml 1120 ml # Bowel Movements 1 1 General Appearance: no acute distress Respiratory: chest wall non-tender Cardiovascular: normal peripheral pulses Abdomen: normal bowel sounds Extremities: no cyanosis Microbiology Date/Time Source Procedure Growth Status 03/30/20 18:30 Blood Blood Culture - Preliminary NO GROWTH AFTER 48 HOURS Resulted 03/30/20 18:15 Blood Blood Culture - Preliminary NO GROWTH AFTER 48 HOURS Resulted 03/30/20 18:30 Nasal Nares MRSA Culture - Final Staphylococcus Aureus - Mrsa Complete 03/30/20 18:30 Urine,Clean Catch Urine Culture - Final NO GROWTH AFTER 48 HOURS Complete 03/30/20 18:30 Rectum - Final NO CARBAPENEM-RESISTANT ENTEROBACTERI... Complete 03/30/20 18:30 Rectum VRE Culture - Final NO VANCOMYCIN RESISTANT ENTEROCOCCUS ... Complete Laboratory Tests 04/02/20 05:54: White Blood Count 6.6, Red Blood Count 5.16, Hemoglobin 15.0, Hematocrit 44.6, Mean Corpuscular Volume 86, Mean Corpuscular Hemoglobin 29.1, Mean Corpuscular Hemoglobin Concent 33.6, Red Cell Distribution Width 13.7, Platelet Count 73L, Mean Platelet Volume 9.6, Neutrophils (%) (Auto) , Lymphocytes (%) (Auto) , Monocytes (%) (Auto) , Eosinophils (%) (Auto) , Basophils (%) (Auto) , Neutrophils % (Manual) [Pending], Lymphocytes % (Manual) [Pending], Platelet Estimate [Pending], Platelet Morphology [Pending], Sodium Level 140, Potassium Level 3.9, Chloride Level 108H, Carbon Dioxide Level 23, Anion Gap 9, Blood Urea Nitrogen 12, Creatinine 0.9, Estimat Glomerular Filtration Rate > 60, Glucose Level 109H, Calcium Level 8.1L Current Medications Medications (Trade) Dose Ordered Sig/Hugo Route PRN Reason Start Time Stop Time Status Last Admin Dose Admin Aripiprazole (Abilify) 5 mg BEDTIME ORAL 03/31/20 21:00 05/15/20 20:59 04/01/20 20:25 Ascorbic Acid (Vitamin C) 500 mg DAILY ORAL 03/31/20 09:00 04/30/20 08:59 04/02/20 09:10 Atorvastatin Calcium (Lipitor) 20 mg BEDTIME ORAL 03/31/20 21:00 06/29/20 20:59 04/01/20 20:25 Cefepime HCl 2 gm/ Dextrose 55 ml @ 110 mls/hr EVERY 12 HOURS IV 03/31/20 09:00 04/07/20 08:59 04/02/20 09:11 Clopidogrel Bisulfate (Plavix) 75 mg DAILY ORAL 03/31/20 09:00 04/30/20 08:59 04/02/20 09:10 Dextrose (Dextrose 50%) 25 ml Q30M PRN IV Hypoglycemia 03/30/20 23:00 06/28/20 22:59 Dextrose (Dextrose 50%) 50 ml Q30M PRN IV Hypoglycemia 03/30/20 23:00 06/28/20 22:59 Docusate Sodium (Colace) 100 mg DAILY ORAL 03/31/20 09:00 04/30/20 08:59 04/02/20 09:10 Finasteride (Proscar) 5 mg DAILY ORAL 03/31/20 09:00 06/29/20 08:59 04/02/20 09:10 Gabapentin (Neurontin) 600 mg THREE TIMES A DAY ORAL 03/31/20 09:00 04/30/20 08:59 04/02/20 09:11 Hydroxychloroquine Sulfate (Plaquenil) 200 mg Q12HR ORAL 04/01/20 09:00 04/04/20 21:01 04/02/20 09:10 Insulin Aspart (NovoLOG) BEFORE MEALS AND HS SUBQ 03/31/20 06:30 06/29/20 06:29 04/01/20 06:56 Lorazepam (Ativan) 1 mg Q6H PRN ORAL For Anxiety 03/31/20 16:00 04/07/20 15:59 Magnesium Hydroxide (Mom) 30 ml DAILY PRN ORAL Constipation 03/30/20 23:00 04/29/20 22:59 Metoprolol Tartrate (Lopressor) 25 mg EVERY 12 HOURS ORAL 03/31/20 09:00 06/29/20 08:59 04/02/20 09:10 Morphine Sulfate (Morphine Sulfate) 2 mg Q4H PRN IVP For Pain 03/31/20 03:30 04/07/20 03:29 04/02/20 06:54 Multivitamins Therapeutic (Therapeutic Multivitamin) 1 ea DAILY ORAL 03/31/20 09:00 04/30/20 08:59 04/02/20 09:10 Sennosides (Senokot) 17.2 mg BEDTIME ORAL 03/31/20 21:00 04/30/20 20:59 04/01/20 20:25 Trazodone HCl (Desyrel) 50 mg BEDTIME ORAL 5/16/20 21:00 04/30/20 20:59 04/01/20 20:25 Assessment/Plan Assessment/Plan IMPRESSION: 1. Left lung pneumonia. 2. CAD. 3. CVA. 4. Psych disorder. 5. Rule out COVID-19. DISCUSSION: The patient has been tested recently as an outpatient as positive for COVID-19. Continue azithromycin and Plaquenil. Ordered oxygen and pulmonary hygiene. I will follow. SaO2 92-94 % on RA Angelina Fraire Omar Syed MD April 02, 2020 09:31
--- NOTE | 2020-04-02 09:57 | General Progress Note ---
Assessment/Plan Problem List: (1) Diabetes ICD Codes: E11.9 - Type 2 diabetes mellitus without complications SNOMED: 91015789 (2) Neuropathy ICD Codes: G62.9 - Polyneuropathy, unspecified SNOMED: 637273271 (3) HTN (hypertension) ICD Codes: I10 - Essential (primary) hypertension SNOMED: 17404669 (4) Pneumonia due to COVID-19 virus ICD Codes: U07.1 - COVID-19; J12.89 - Other viral pneumonia SNOMED: 426610084, 168221272 (5) Chest pain ICD Codes: R07.9 - Chest pain, unspecified SNOMED: 30283025, 462389398 (6) History of CVA (cerebrovascular accident) ICD Codes: Z86.73 - Personal history of transient ischemic attack (TIA), and cerebral infarction without residual deficits SNOMED: 064020210 (7) Thrombocytopenia ICD Codes: D69.6 - Thrombocytopenia, unspecified SNOMED: 572133595 (8) UTI (urinary tract infection) ICD Codes: N39.0 - Urinary tract infection, site not specified SNOMED: 25925467 (9) ACS (acute coronary syndrome) ICD Codes: I24.9 - Acute ischemic heart disease, unspecified SNOMED: 969347387 Status: unchanged Assessment/Plan: o2 pulm tx prn abx pt diet eval cbc bmp am Subjective Constitutional: Reports: weakness Allergies: Coded Allergies: ACETAMINOPHEN (Verified Allergy, Unknown, 08/28/18) ASPIRIN (Verified Allergy, Unknown, 08/28/18) FISH DERIVED (Verified Allergy, Unknown, 10/19/19) KETOROLAC (Verified Allergy, Unknown, 08/28/18) NSAIDS (NON-STEROIDAL ANTI-INFLAMMA (Verified Allergy, Unknown, 09/09/18) TRAMADOL (Verified Allergy, Unknown, 10/19/19) All Systems: reviewed and negative except above Subjective sleepy in bed Objective Last 24 Hour Vital Signs Date Time Temp Pulse Resp B/P (MAP) Pulse Ox O2 Delivery O2 Flow Rate FiO2 04/02/20 09:10 74 109/55 04/02/20 08:00 97.9 74 20 109/55 (73) 93 04/02/20 04:00 69 04/02/20 04:00 98.8 90 18 137/77 (97) 93 04/02/20 00:00 97.7 72 19 131/60 (83) 94 04/02/20 00:00 69 04/01/20 21:00 Room Air 04/01/20 21:00 74 129/56 04/01/20 20:00 97.0 69 20 121/56 (77) 94 04/01/20 20:00 72 04/01/20 16:00 96.8 69 18 108/58 (75) 96 04/01/20 12:00 96.7 74 19 125/66 (85) 98 04/01/20 12:00 78 Intake and Output 04/01/20 04/02/20 19:00 07:00 Intake Total 140 ml 55 ml Output Total 1200 ml 1120 ml Balance -1060 ml -1065 ml Intake Oral 140 ml IV Total 55 ml Output Urine Total 1200 ml 1120 ml # Bowel Movements 1 1 Laboratory Tests 04/02/20 05:54: White Blood Count 6.6, Red Blood Count 5.16, Hemoglobin 15.0, Hematocrit 44.6, Mean Corpuscular Volume 86, Mean Corpuscular Hemoglobin 29.1, Mean Corpuscular Hemoglobin Concent 33.6, Red Cell Distribution Width 13.7, Platelet Count 73L, Mean Platelet Volume 9.6, Neutrophils (%) (Auto) , Lymphocytes (%) (Auto) , Monocytes (%) (Auto) , Eosinophils (%) (Auto) , Basophils (%) (Auto) , Differential Total Cells Counted 100, Neutrophils % (Manual) 64, Lymphocytes % ( Manual) 26, Monocytes % (Manual) 8, Eosinophils % (Manual) 2, Basophils % ( Manual) 0, Band Neutrophils 0, Platelet Estimate DecreasedL, Platelet Morphology Normal, Red Blood Cell Morphology Normal, Sodium Level 140, Potassium Level 3.9, Chloride Level 108H, Carbon Dioxide Level 23, Anion Gap 9, Blood Urea Nitrogen 12, Creatinine 0.9, Estimat Glomerular Filtration Rate > 60 , Glucose Level 109H, Calcium Level 8.1L Height (Feet): 5 Height (Inches): 9.00 Weight (Pounds): 200 General Appearance: lethargic EENT: normal ENT inspection Neck: normal alignment Cardiovascular: normal rate, regular rhythm Respiratory/Chest: no respiratory distress, no accessory muscle use Extremities: normal inspection Skin: normal pigmentation Roberto Georges DO April 02, 2020 09:57
--- NOTE | 2020-04-02 10:30 | Hematology/Onc Progress Note ---
Assessment/Plan Assessment/Plan ASSESSMENT AND PLAN: # Thrombocytopenia - potential causes multifactorial, in this case, most likely related to HEP C that is chronic, labs noted, also with COVID19+++++ --> Hep panel and HIV reviewed from before, HEP C+++ --> US abd to evaluate for cirrhosis and hsm reviewed and neg from before --> Peripheral smear ordered to evaluate for blasts /schistocytes --> abx and other meds have been reviewed --> ok for ppx if plt >50k w/ either heparin or lovenox --> Transfuse if Plt < 20k and fever, or if Plt < 10k without fever --> plt 100-->82k-->73 --> HAS NOT RECEIVED HEPARIN SQ # Atypical chest pain, AMI is ruled out, no ischemic changes on ECG, no wall motion abnormalities. --> per cards, Continue conservative management. --> per [place] # HCV infection. --> afp and us as needed # Hx of CAD, s/p [place]. --> per cards # Hx of CVA with left hemiparesis. Continue ASA and statins. # Hx of renal calculi. # Dvt ppx scds The timing of this note does not necessarily reflect the time of the patient was seen. Greatly appreciate consultation! Subjective Constitutional: Denies: no symptoms, chills, fever, malaise, weakness, other HEENT: Denies: no symptoms, eye pain, blurred vision, tearing, double vision, ear pain, ear discharge, nose pain, nose congestion, throat pain, throat swelling, mouth pain, mouth swelling, other Cardiovascular: Denies: no symptoms, chest pain, edema, irregular heart rate, lightheadedness, palpitations, syncope, other Respiratory: Denies: no symptoms, cough, shortness of breath, SOB with excertion, SOB at rest, sputum, wheezing, other Gastrointestinal/Abdominal: Denies: no symptoms, abdomen distended, abdominal pain, black stools, tarry stools, blood in stool, constipated, diarrhea, difficulty swallowing, nausea, poor appetite, poor fluid intake, rectal bleeding , vomiting, other Genitourinary: Denies: no symptoms, burning, discharge, frequency, flank pain, hematuria, incontinence, pain, urgency, other Neurologic/Psychiatric: Denies: no symptoms, anxiety, depressed, emotional problems, headache, numbness, paresthesia, pre-existing deficit, seizure, tingling, tremors, weakness, other Endocrine: Denies: no symptoms, excessive sweating, flushing, intolerance to cold, intolerance to heat, increased hunger, increased thirst, increased urine, unexplained weight gain, unexplained weight loss, other Hematologic/Lymphatic: Denies: no symptoms, anemia, easy bleeding, easy bruising, adenopathy, other Allergies: Coded Allergies: ACETAMINOPHEN (Verified Allergy, Unknown, 08/28/18) ASPIRIN (Verified Allergy, Unknown, 08/28/18) FISH DERIVED (Verified Allergy, Unknown, 10/19/19) KETOROLAC (Verified Allergy, Unknown, 08/28/18) NSAIDS (NON-STEROIDAL ANTI-INFLAMMA (Verified Allergy, Unknown, 09/09/18) TRAMADOL (Verified Allergy, Unknown, 10/19/19) Subjective 04/02 no bleeding, meds noted, no night sweats, labs reviewed Objective Objective Current Medications Medications (Trade) Dose Ordered Sig/Hugo Route PRN Reason Start Time Stop Time Status Last Admin Dose Admin Aripiprazole (Abilify) 5 mg BEDTIME ORAL 03/31/20 21:00 05/15/20 20:59 04/01/20 20:25 Ascorbic Acid (Vitamin C) 500 mg DAILY ORAL 03/31/20 09:00 04/30/20 08:59 04/02/20 09:10 Atorvastatin Calcium (Lipitor) 20 mg BEDTIME ORAL 03/31/20 21:00 06/29/20 20:59 04/01/20 20:25 Cefepime HCl 2 gm/ Dextrose 55 ml @ 110 mls/hr EVERY 12 HOURS IV 03/31/20 09:00 04/07/20 08:59 04/02/20 09:11 Clopidogrel Bisulfate (Plavix) 75 mg DAILY ORAL 03/31/20 09:00 04/30/20 08:59 04/02/20 09:10 Dextrose (Dextrose 50%) 25 ml Q30M PRN IV Hypoglycemia 03/30/20 23:00 06/28/20 22:59 Dextrose (Dextrose 50%) 50 ml Q30M PRN IV Hypoglycemia 03/30/20 23:00 06/28/20 22:59 Docusate Sodium (Colace) 100 mg DAILY ORAL 03/31/20 09:00 04/30/20 08:59 04/02/20 09:10 Finasteride (Proscar) 5 mg DAILY ORAL 03/31/20 09:00 06/29/20 08:59 04/02/20 09:10 Gabapentin (Neurontin) 600 mg THREE TIMES A DAY ORAL 03/31/20 09:00 04/30/20 08:59 04/02/20 09:11 Hydroxychloroquine Sulfate (Plaquenil) 200 mg Q12HR ORAL 04/01/20 09:00 04/04/20 21:01 04/02/20 09:10 Insulin Aspart (NovoLOG) BEFORE MEALS AND HS SUBQ 03/31/20 06:30 06/29/20 06:29 04/01/20 06:56 Lorazepam (Ativan) 1 mg Q6H PRN ORAL For Anxiety 03/31/20 16:00 04/07/20 15:59 Magnesium Hydroxide (Mom) 30 ml DAILY PRN ORAL Constipation 03/30/20 23:00 04/29/20 22:59 Metoprolol Tartrate (Lopressor) 25 mg EVERY 12 HOURS ORAL 03/31/20 09:00 06/29/20 08:59 04/02/20 09:10 Morphine Sulfate (Morphine Sulfate) 2 mg Q4H PRN IVP For Pain 03/31/20 03:30 04/07/20 03:29 04/02/20 06:54 Multivitamins Therapeutic (Therapeutic Multivitamin) 1 ea DAILY ORAL 03/31/20 09:00 04/30/20 08:59 04/02/20 09:10 Sennosides (Senokot) 17.2 mg BEDTIME ORAL 03/31/20 21:00 04/30/20 20:59 04/01/20 20:25 Trazodone HCl (Desyrel) 50 mg BEDTIME ORAL 03/31/20 21:00 04/30/20 20:59 04/01/20 20:25 Last 24 Hour Vital Signs Date Time Temp Pulse Resp B/P (MAP) Pulse Ox O2 Delivery O2 Flow Rate FiO2 04/02/20 09:10 74 109/55 04/02/20 08:00 97.9 74 20 109/55 (73) 93 04/02/20 04:00 69 04/02/20 04:00 98.8 90 18 137/77 (97) 93 04/02/20 00:00 97.7 72 19 131/60 (83) 94 04/02/20 00:00 69 04/01/20 21:00 Room Air 04/01/20 21:00 74 129/56 04/01/20 20:00 97.0 69 20 121/56 (77) 94 04/01/20 20:00 72 04/01/20 16:00 96.8 69 18 108/58 (75) 96 04/01/20 12:00 96.7 74 19 125/66 (85) 98 04/01/20 12:00 78 04/01/20 09:40 73 127/62 04/01/20 09:08 Room Air 04/01/20 08:17 96.6 73 19 127/62 (83) 98 04/01/20 08:00 77 04/01/20 04:00 88 04/01/20 03:56 96.8 77 20 120/61 (80) 93 04/01/20 00:00 97.9 78 18 110/60 (77) 92 04/01/20 00:00 80 03/31/20 21:28 79 118/68 03/31/20 21:00 Room Air 03/31/20 20:00 78 03/31/20 20:00 98.9 79 20 118/68 (85) 92 03/31/20 16:00 98.1 78 19 131/63 (85) 94 03/31/20 16:00 79 03/31/20 12:00 97.7 81 18 127/75 (92) 93 03/31/20 12:00 76 Intake and Output 04/01/20 04/02/20 19:00 07:00 Intake Total 140 ml 55 ml Output Total 1200 ml 1120 ml Balance -1060 ml -1065 ml Intake Oral 140 ml IV Total 55 ml Output Urine Total 1200 ml 1120 ml # Bowel Movements 1 1 Labs Test 03/30/20 18:25 03/30/20 18:30 03/31/20 14:05 04/01/20 04:00 White Blood Count 9.0 K/UL (4.8-10.8) 7.5 K/UL (4.8-10.8) Red Blood Count 5.60 M/UL (4.70-6.10) 5.20 M/UL (4.70-6.10) Hemoglobin 16.0 G/DL (14.2-18.0) 15.2 G/DL (14.2-18.0) Hematocrit 51.9 % (42.0-52.0) 45.3 % (42.0-52.0) Mean Corpuscular Volume 93 FL (80-99) 87 FL (80-99) Mean Corpuscular Hemoglobin 28.5 PG (27.0-31.0) 29.2 PG (27.0-31.0) Mean Corpuscular Hemoglobin Concent 30.8 G/DL (32.0-36.0) 33.5 G/DL (32.0-36.0) Red Cell Distribution Width 15.1 % (11.6-14.8) 13.7 % (11.6-14.8) Platelet Count 100 K/UL (150-450) 82 K/UL (150-450) Mean Platelet Volume 11.8 FL (6.5-10.1) 7.9 FL (6.5-10.1) Neutrophils (%) (Auto) 66.6 % (45.0-75.0) % (45.0-75.0) Lymphocytes (%) (Auto) 22.3 % (20.0-45.0) % (20.0-45.0) Monocytes (%) (Auto) 7.9 % (1.0-10.0) % (1.0-10.0) Eosinophils (%) (Auto) 2.2 % (0.0-3.0) % (0.0-3.0) Basophils (%) (Auto) 1.0 % (0.0-2.0) % (0.0-2.0) Urine Color Yellow Urine Appearance Clear Urine pH 6 (4.5-8.0) Urine Specific [place] 1.025 (1.005-1.035) Urine Protein Negative (NEGATIVE) Urine Glucose (UA) Negative (NEGATIVE) Urine Ketones Negative (NEGATIVE) Urine Blood 3+ (NEGATIVE) Urine Nitrite Negative (NEGATIVE) Urine Bilirubin Negative (NEGATIVE) Urine Urobilinogen 1 MG/DL (0.0-1.0) Urine Leukocyte Esterase 1+ (NEGATIVE) Urine RBC 5-10 /HPF (0 - 0) Urine WBC 15-20 /HPF (0 - 0) Urine Squamous Epithelial Cells Occasional /LPF Urine Bacteria Few /HPF (NONE) Sodium Level 143 MMOL/L (136-145) 144 MMOL/L (136-145) Potassium Level 4.2 MMOL/L (3.5-5.1) 3.9 MMOL/L (3.5-5.1) Chloride Level 109 MMOL/L (98-107) 108 MMOL/L (98-107) Carbon Dioxide Level 24 MMOL/L (21-32) 26 MMOL/L (21-32) Anion Gap 10 mmol/L (5-15) 10 mmol/L (5-15) Blood Urea Nitrogen 12 mg/dL (7-18) 14 mg/dL (7-18) Creatinine 0.8 MG/DL (0.55-1.30) 0.9 MG/DL (0.55-1.30) Estimat Glomerular Filtration Rate > 60 mL/min (>60) > 60 mL/min (>60) Glucose Level 129 MG/DL (74-106) 166 MG/DL (74-106) Lactic Acid Level 1.20 mmol/L (0.4-2.0) Calcium Level 8.5 MG/DL (8.5-10.1) 8.3 MG/DL (8.5-10.1) Total Bilirubin 0.5 MG/DL (0.2-1.0) Aspartate Amino Transf (AST/SGOT) 62 U/L (15-37) Alanine Aminotransferase (ALT/SGPT) 88 U/L (12-78) Alkaline Phosphatase 91 U/L (46-116) Total Creatine Kinase 94 U/L (26-308) Creatine Kinase MB 0.5 NG/ML (0.0-3.6) Creatine Kinase MB Relative Index 0.5 Troponin I 0.000 ng/mL (0.000-0.056) 0.000 ng/mL (0.000-0.056) 0.006 ng/mL (0.000-0.056) Total Protein 7.7 G/DL (6.4-8.2) Albumin 2.9 G/DL (3.4-5.0) Globulin 4.8 g/dL Albumin/Globulin Ratio 0.6 (1.0-2.7) Test 04/02/20 05:54 White Blood Count 6.6 K/UL (4.8-10.8) Red Blood Count 5.16 M/UL (4.70-6.10) Hemoglobin 15.0 G/DL (14.2-18.0) Hematocrit 44.6 % (42.0-52.0) Mean Corpuscular Volume 86 FL (80-99) Mean Corpuscular Hemoglobin 29.1 PG (27.0-31.0) Mean Corpuscular Hemoglobin Concent 33.6 G/DL (32.0-36.0) Red Cell Distribution Width 13.7 % (11.6-14.8) Platelet Count 73 K/UL (150-450) Mean Platelet Volume 9.6 FL (6.5-10.1) Neutrophils (%) (Auto) % (45.0-75.0) Lymphocytes (%) (Auto) % (20.0-45.0) Monocytes (%) (Auto) % (1.0-10.0) Eosinophils (%) (Auto) % (0.0-3.0) Basophils (%) (Auto) % (0.0-2.0) Differential Total Cells Counted 100 Neutrophils % (Manual) 64 % (45-75) Lymphocytes % (Manual) 26 % (20-45) Monocytes % (Manual) 8 % (1-10) Eosinophils % (Manual) 2 % (0-3) Basophils % (Manual) 0 % (0-2) Band Neutrophils 0 % (0-8) Platelet Estimate Decreased Platelet Morphology Normal Red Blood Cell Morphology Normal Sodium Level 140 MMOL/L (136-145) Potassium Level 3.9 MMOL/L (3.5-5.1) Chloride Level 108 MMOL/L (98-107) Carbon Dioxide Level 23 MMOL/L (21-32) Anion Gap 9 mmol/L (5-15) Blood Urea Nitrogen 12 mg/dL (7-18) Creatinine 0.9 MG/DL (0.55-1.30) Estimat Glomerular Filtration Rate > 60 mL/min (>60) Glucose Level 109 MG/DL (74-106) Calcium Level 8.1 MG/DL (8.5-10.1) Height (Feet): 5 Height (Inches): 9.00 Weight (Pounds): 200 Objective VITAL SIGNS: Reviewed GENERAL: This is a very unfortunate 53-year-old gentleman, chronically ill, in no apparent respiratory distress. HEENT: Atraumatic and normocephalic. Anicteric. perrl. NECK: JVP is less than 5 cm. No carotid bruits. Carotid upstrokes 2+ bilaterally. CARDIOVASCULAR: Normal S1 and S2. Regular rate and rhythm. No murmurs, gallops, or rubs. PMI is at fourth intercostal space at the midclavicular line. LUNGS: Clear to auscultation bilaterally. ABDOMEN: Soft, nontender, and nondistended. No hepatosplenomegaly. Positive bowel sounds. EXTREMITIES: No evidence of edema, clubbing, or cyanosis. Bebo Agustin MD April 02, 2020 10:30
--- NOTE | 2020-04-02 10:45 | Cardiac Electrophysiology PN ---
Assessment/Plan Assessment/Plan 1. Chest pain and shortness of breath, due to the patient's COVID pneumonia. All troponins are negative. EKG no acute ischemic changes. Echocardiogram Nl EF. On metoprolol 25 mg b.i.d., Plavix and Lipitor. 2. Hyperlipidemia, on Lipitor. 3. Hypertension, on metoprolol 25 mg b.i.d. 4. Positive COVID. Still on Plaquenil. Repeat EKG today showed QT 448. Low voltage ECG. Echo no pericardial effusion 5. Psych disorder, on Abilify. BETZY RN Subjective Subjective No new events on tele. Persistently asking for morphine. On iv Abx Objective Last 24 Hour Vital Signs Date Time Temp Pulse Resp B/P (MAP) Pulse Ox O2 Delivery O2 Flow Rate FiO2 04/02/20 09:10 74 109/55 04/02/20 08:00 97.9 74 20 109/55 (73) 93 04/02/20 04:00 69 04/02/20 04:00 98.8 90 18 137/77 (97) 93 04/02/20 00:00 97.7 72 19 131/60 (83) 94 04/02/20 00:00 69 04/01/20 21:00 Room Air 04/01/20 21:00 74 129/56 04/01/20 20:00 97.0 69 20 121/56 (77) 94 04/01/20 20:00 72 04/01/20 16:00 96.8 69 18 108/58 (75) 96 04/01/20 12:00 96.7 74 19 125/66 (85) 98 04/01/20 12:00 78 Intake and Output 04/01/20 04/02/20 19:00 07:00 Intake Total 140 ml 55 ml Output Total 1200 ml 1120 ml Balance -1060 ml -1065 ml Intake Oral 140 ml IV Total 55 ml Output Urine Total 1200 ml 1120 ml # Bowel Movements 1 1 Laboratory Tests Test 04/02/20 05:54 White Blood Count 6.6 K/UL (4.8-10.8) Red Blood Count 5.16 M/UL (4.70-6.10) Hemoglobin 15.0 G/DL (14.2-18.0) Hematocrit 44.6 % (42.0-52.0) Mean Corpuscular Volume 86 FL (80-99) Mean Corpuscular Hemoglobin 29.1 PG (27.0-31.0) Mean Corpuscular Hemoglobin Concent 33.6 G/DL (32.0-36.0) Red Cell Distribution Width 13.7 % (11.6-14.8) Platelet Count 73 K/UL (150-450) L Mean Platelet Volume 9.6 FL (6.5-10.1) Neutrophils (%) (Auto) % (45.0-75.0) Lymphocytes (%) (Auto) % (20.0-45.0) Monocytes (%) (Auto) % (1.0-10.0) Eosinophils (%) (Auto) % (0.0-3.0) Basophils (%) (Auto) % (0.0-2.0) Differential Total Cells Counted 100 Neutrophils % (Manual) 64 % (45-75) Lymphocytes % (Manual) 26 % (20-45) Monocytes % (Manual) 8 % (1-10) Eosinophils % (Manual) 2 % (0-3) Basophils % (Manual) 0 % (0-2) Band Neutrophils 0 % (0-8) Platelet Estimate Decreased L Platelet Morphology Normal Red Blood Cell Morphology Normal Sodium Level 140 MMOL/L (136-145) Potassium Level 3.9 MMOL/L (3.5-5.1) Chloride Level 108 MMOL/L (98-107) H Carbon Dioxide Level 23 MMOL/L (21-32) Anion Gap 9 mmol/L (5-15) Blood Urea Nitrogen 12 mg/dL (7-18) Creatinine 0.9 MG/DL (0.55-1.30) Estimat Glomerular Filtration Rate > 60 mL/min (>60) Glucose Level 109 MG/DL (74-106) H Calcium Level 8.1 MG/DL (8.5-10.1) L Microbiology Date/Time Source Procedure Growth Status 03/30/20 18:30 Blood Blood Culture - Preliminary NO GROWTH AFTER 48 HOURS Resulted 03/30/20 18:15 Blood Blood Culture - Preliminary NO GROWTH AFTER 48 HOURS Resulted 03/30/20 18:30 Nasal Nares MRSA Culture - Final Staphylococcus Aureus - Mrsa Complete 03/30/20 18:30 Urine,Clean Catch Urine Culture - Final NO GROWTH AFTER 48 HOURS Complete 03/30/20 18:30 Rectum - Final NO CARBAPENEM-RESISTANT ENTEROBACTERI... Complete 03/30/20 18:30 Rectum VRE Culture - Final NO VANCOMYCIN RESISTANT ENTEROCOCCUS ... Complete Objective HEAD AND NECK: No JVD. LUNGS: Clear. CARDIOVASCULAR: Regular S1 and S2 with no gallop or murmur. ABDOMEN: Soft. EXTREMITIES: No pitting edema. Tu Benton MD April 02, 2020 10:45
--- NOTE | 2020-04-02 10:50 | NUR ---
NURSE NOTES: Dr Grewal called back, no new order to RN. Will continue to monitor.
--- NOTE | 2020-04-02 10:54 | Infectious Diseases Prog Note ---
Assessment/Plan Assessment/Plan antibiotics : cefepime, hydroxychloroquine A 1. UTI s/p rx 2. COVID 19 pneumonia 3. hypertension 4. CVA 5. CAD P 1. continue hydroxychloroquine 2 more days 2. d/c cefepime 3. repeat COVID 19 test 4. continue isolation Subjective Constitutional: Denies: fever, chills Respiratory: Denies: shortness of breath, dry cough Gastrointestinal/Abdominal: Denies: nausea, vomiting, diarrhea Musculoskeletal: Reports: pain Allergies: Coded Allergies: ACETAMINOPHEN (Verified Allergy, Unknown, 08/28/18) ASPIRIN (Verified Allergy, Unknown, 08/28/18) FISH DERIVED (Verified Allergy, Unknown, 10/19/19) KETOROLAC (Verified Allergy, Unknown, 08/28/18) NSAIDS (NON-STEROIDAL ANTI-INFLAMMA (Verified Allergy, Unknown, 09/09/18) TRAMADOL (Verified Allergy, Unknown, 10/19/19) Objective Vital Signs Last 24 Hour Vital Signs Date Time Temp Pulse Resp B/P (MAP) Pulse Ox O2 Delivery O2 Flow Rate FiO2 04/02/20 09:10 74 109/55 04/02/20 08:00 97.9 74 20 109/55 (73) 93 04/02/20 07:42 63 04/02/20 04:00 69 04/02/20 04:00 98.8 90 18 137/77 (97) 93 04/02/20 00:00 97.7 72 19 131/60 (83) 94 04/02/20 00:00 69 04/01/20 21:00 Room Air 04/01/20 21:00 74 129/56 04/01/20 20:00 97.0 69 20 121/56 (77) 94 04/01/20 20:00 72 04/01/20 16:00 96.8 69 18 108/58 (75) 96 04/01/20 12:00 96.7 74 19 125/66 (85) 98 04/01/20 12:00 78 Height (Feet): 5 Height (Inches): 9.00 Weight (Pounds): 200 Microbiology Date/Time Source Procedure Growth Status 03/30/20 18:30 Blood Blood Culture - Preliminary NO GROWTH AFTER 48 HOURS Resulted 03/30/20 18:15 Blood Blood Culture - Preliminary NO GROWTH AFTER 48 HOURS Resulted 03/30/20 18:30 Nasal Nares MRSA Culture - Final Staphylococcus Aureus - Mrsa Complete 03/30/20 18:30 Urine,Clean Catch Urine Culture - Final NO GROWTH AFTER 48 HOURS Complete 03/30/20 18:30 Rectum - Final NO CARBAPENEM-RESISTANT ENTEROBACTERI... Complete 03/30/20 18:30 Rectum VRE Culture - Final NO VANCOMYCIN RESISTANT ENTEROCOCCUS ... Complete Laboratory Tests Test 04/02/20 05:54 White Blood Count 6.6 K/UL (4.8-10.8) Red Blood Count 5.16 M/UL (4.70-6.10) Hemoglobin 15.0 G/DL (14.2-18.0) Hematocrit 44.6 % (42.0-52.0) Mean Corpuscular Volume 86 FL (80-99) Mean Corpuscular Hemoglobin 29.1 PG (27.0-31.0) Mean Corpuscular Hemoglobin Concent 33.6 G/DL (32.0-36.0) Red Cell Distribution Width 13.7 % (11.6-14.8) Platelet Count 73 K/UL (150-450) L Mean Platelet Volume 9.6 FL (6.5-10.1) Neutrophils (%) (Auto) % (45.0-75.0) Lymphocytes (%) (Auto) % (20.0-45.0) Monocytes (%) (Auto) % (1.0-10.0) Eosinophils (%) (Auto) % (0.0-3.0) Basophils (%) (Auto) % (0.0-2.0) Differential Total Cells Counted 100 Neutrophils % (Manual) 64 % (45-75) Lymphocytes % (Manual) 26 % (20-45) Monocytes % (Manual) 8 % (1-10) Eosinophils % (Manual) 2 % (0-3) Basophils % (Manual) 0 % (0-2) Band Neutrophils 0 % (0-8) Platelet Estimate Decreased L Platelet Morphology Normal Red Blood Cell Morphology Normal Sodium Level 140 MMOL/L (136-145) Potassium Level 3.9 MMOL/L (3.5-5.1) Chloride Level 108 MMOL/L (98-107) H Carbon Dioxide Level 23 MMOL/L (21-32) Anion Gap 9 mmol/L (5-15) Blood Urea Nitrogen 12 mg/dL (7-18) Creatinine 0.9 MG/DL (0.55-1.30) Estimat Glomerular Filtration Rate > 60 mL/min (>60) Glucose Level 109 MG/DL (74-106) H Calcium Level 8.1 MG/DL (8.5-10.1) L Current Medications Medications (Trade) Dose Ordered Sig/Hugo Route PRN Reason Start Time Stop Time Status Last Admin Dose Admin Aripiprazole (Abilify) 5 mg BEDTIME ORAL 03/31/20 21:00 05/15/20 20:59 04/01/20 20:25 Ascorbic Acid (Vitamin C) 500 mg DAILY ORAL 03/31/20 09:00 04/30/20 08:59 04/02/20 09:10 Atorvastatin Calcium (Lipitor) 20 mg BEDTIME ORAL 03/31/20 21:00 06/29/20 20:59 04/01/20 20:25 Cefepime HCl 2 gm/ Dextrose 55 ml @ 110 mls/hr EVERY 12 HOURS IV 03/31/20 09:00 04/07/20 08:59 04/02/20 09:11 Clopidogrel Bisulfate (Plavix) 75 mg DAILY ORAL 03/31/20 09:00 04/30/20 08:59 04/02/20 09:10 Dextrose (Dextrose 50%) 25 ml Q30M PRN IV Hypoglycemia 03/30/20 23:00 06/28/20 22:59 Dextrose (Dextrose 50%) 50 ml Q30M PRN IV Hypoglycemia 03/30/20 23:00 06/28/20 22:59 Docusate Sodium (Colace) 100 mg DAILY ORAL 03/31/20 09:00 04/30/20 08:59 04/02/20 09:10 Finasteride (Proscar) 5 mg DAILY ORAL 03/31/20 09:00 06/29/20 08:59 04/02/20 09:10 Gabapentin (Neurontin) 600 mg THREE TIMES A DAY ORAL 03/31/20 09:00 04/30/20 08:59 04/02/20 09:11 Hydroxychloroquine Sulfate (Plaquenil) 200 mg Q12HR ORAL 04/01/20 09:00 04/04/20 21:01 04/02/20 09:10 Insulin Aspart (NovoLOG) BEFORE MEALS AND HS SUBQ 03/31/20 06:30 06/29/20 06:29 04/01/20 06:56 Lorazepam (Ativan) 1 mg Q6H PRN ORAL For Anxiety 03/31/20 16:00 04/07/20 15:59 Magnesium Hydroxide (Mom) 30 ml DAILY PRN ORAL Constipation 03/30/20 23:00 04/29/20 22:59 Metoprolol Tartrate (Lopressor) 25 mg EVERY 12 HOURS ORAL 03/31/20 09:00 06/29/20 08:59 04/02/20 09:10 Morphine Sulfate (Morphine Sulfate) 2 mg Q4H PRN IVP For Pain 03/31/20 03:30 04/07/20 03:29 04/02/20 06:54 Multivitamins Therapeutic (Therapeutic Multivitamin) 1 ea DAILY ORAL 03/31/20 09:00 04/30/20 08:59 04/02/20 09:10 Sennosides (Senokot) 17.2 mg BEDTIME ORAL 03/31/20 21:00 04/30/20 20:59 04/01/20 20:25 Trazodone HCl (Desyrel) 50 mg BEDTIME ORAL 03/31/20 21:00 04/30/20 20:59 04/01/20 20:25 Alex Mccord MD April 02, 2020 10:54
--- NOTE | 2020-04-02 15:19 | NUR ---
CASE MANAGEMENT:REVIEW 54 YR OLD MALE BIBA FROM [facility] CC :CHEST PAIN AND SOB PMH: COVID 19 DETECTED...ALLERGIC TO ASA SI: ACS. COVID 19 PNA. UTI 97.0 84 14 138/72 95% ON RA TROPONIN(-) IS: IV AZITHROMYCIN IV ROCEPHIN IV MORPHINE BLOOD CX CHEST XRAY URINE CX : TO TELEMETRY DCP: FROM [facility] IS: PLAVIX PO QD VIT C PO QD PLAQUENIL PO Q12 PLAN: COVID 19 SWAB
--- NOTE | 2020-04-02 19:29 | Progress Note ---
DATE: 04/02/2020 SUBJECTIVE: This is a 54-year-old male patient. He currently has acute coronary syndrome. He also been positive COVID-19. He also has chest pain, hypertension, CVA, thrombocytopenia, cirrhosis, hepatitis C. decline in cognition below his baseline but he has increased altered mental status, disorganized thought process worsened by stress of his medical illness. He has got increased depression, anxiety, and mood lability. MENTAL STATUS EXAMINATION: This is a 54-year-old male. Appearance is disheveled. Attitude, irritable and agitated. Affect, guarded and restricted. Intellect poor. Mood, depressed and anxious. Motor activity, psychomotor agitation. Attention span is poor. Orientation x2. Speech is low volume and slurred. Thought process, disorganized and illogical. Insight and judgment is poor. DIAGNOSIS: Paranoid schizophrenia with acute exacerbation. PLAN: Treat him with Abilify 5 mg at bedtime, Neurontin 600 mg three times a day, Ativan 1 every 6 hours p.r.n. anxiety and agitation, trazodone 50 mg at bedtime. A 20 minutes of reality-based supportive psychotherapy provided. A 20 minutes of cognitive behavioral therapy to help him identify his automatic negative thoughts and convert those negative thoughts to more positive thoughts to reduce depression, anxiety, and mood lability. A 20 minutes of cognitive behavioral therapy provided. Chart was reviewed and discussed with staff. Seen and assessed in his room. Amy Benites M.D. DR: SEVERINO JOB#: [id number] CC:
--- NOTE | 2020-04-02 19:32 | NUR ---
HAND-OFF: Report given to Claudia ANGULO. Pt is awake and stable.
[2020-04-02] MEDS: TraZODone 50mg tab ORAL SCH (20:13)
[2020-04-02] MEDS: Atorvastatin 20mg tab ORAL SCH (20:13)
[2020-04-02] MEDS: Sennosides 8.6mg tab ORAL SCH (21:00)
[2020-04-03] VITALS: BP 135/105
[2020-04-03] MEDS: Morphine Sulfate 2mg/ml Inj(IV/IM USE ONLY) IVP PRN ×5 (00:06→16:20)
[2020-04-03 04:00] VITALS: BP 146/62
[2020-04-03] MEDS: NovoLOG Insulin Flexpen SUBQ SCH ×4 (06:30→21:00)
--- NOTE | 2020-04-03 07:00 | NUR ---
NURSE NOTES:Handoff received from ADELE Wei. Patient received awake and alert and able to make needs known. patient complaining of abdominal pain, will give pain medication when available. No acute signs of distress noted. patient is on room air,bed in the low and locked position with call light within reach,Wilson attached to bedside. will continue to monitor patient.
--- NOTE | 2020-04-03 07:36 | Hematology/Onc Progress Note ---
Assessment/Plan Assessment/Plan ASSESSMENT AND PLAN: # Thrombocytopenia - potential causes multifactorial, in this case, most likely related to HEP C that is chronic, labs noted, also with COVID19+++++ --> Hep panel and HIV reviewed from before, HEP C+++ --> US abd to evaluate for cirrhosis and hsm reviewed and neg from before --> Peripheral smear ordered to evaluate for blasts /schistocytes --> abx and other meds have been reviewed --> ok for ppx if plt >50k w/ either heparin or lovenox --> Transfuse if Plt < 20k and fever, or if Plt < 10k without fever --> plt 100-->82k-->73 --> HAS NOT RECEIVED HEPARIN SQ --> meds: plaquenil, plavix # Atypical chest pain, AMI is ruled out, no ischemic changes on ECG, no wall motion abnormalities. --> per cards, Continue conservative management. --> per [place] # HCV infection. --> afp and us as needed # Hx of CAD, s/p [place]. --> per cards # Hx of CVA with left hemiparesis. Continue ASA and statins. # Hx of renal calculi. # Dvt ppx scds The timing of this note does not necessarily reflect the time of the patient was seen. Greatly appreciate consultation! Subjective Allergies: Coded Allergies: ACETAMINOPHEN (Verified Allergy, Unknown, 08/28/18) ASPIRIN (Verified Allergy, Unknown, 08/28/18) FISH DERIVED (Verified Allergy, Unknown, 10/19/19) KETOROLAC (Verified Allergy, Unknown, 08/28/18) NSAIDS (NON-STEROIDAL ANTI-INFLAMMA (Verified Allergy, Unknown, 09/09/18) TRAMADOL (Verified Allergy, Unknown, 10/19/19) Subjective 04/02 no bleeding, meds noted, no night sweats, labs reviewed 04/03 alert, no overnight events, on plaquenil, room air Objective Objective Current Medications Medications (Trade) Dose Ordered Sig/Hugo Route PRN Reason Start Time Stop Time Status Last Admin Dose Admin Aripiprazole (Abilify) 5 mg BEDTIME ORAL 03/31/20 21:00 05/15/20 20:59 04/02/20 20:13 Ascorbic Acid (Vitamin C) 500 mg DAILY ORAL 03/31/20 09:00 04/30/20 08:59 04/02/20 09:10 Atorvastatin Calcium (Lipitor) 20 mg BEDTIME ORAL 04/02/20 21:00 06/29/20 20:59 04/02/20 20:13 Clopidogrel Bisulfate (Plavix) 75 mg DAILY ORAL 03/31/20 09:00 04/30/20 08:59 04/02/20 09:10 Dextrose (Dextrose 50%) 25 ml Q30M PRN IV Hypoglycemia 03/30/20 23:00 06/28/20 22:59 Dextrose (Dextrose 50%) 50 ml Q30M PRN IV Hypoglycemia 03/30/20 23:00 06/28/20 22:59 Docusate Sodium (Colace) 100 mg DAILY ORAL 03/31/20 09:00 04/30/20 08:59 04/02/20 09:10 Finasteride (Proscar) 5 mg DAILY ORAL 03/31/20 09:00 06/29/20 08:59 04/02/20 09:10 Gabapentin (Neurontin) 600 mg THREE TIMES A DAY ORAL 03/31/20 09:00 04/30/20 08:59 04/02/20 17:14 Hydroxychloroquine Sulfate (Plaquenil) 200 mg Q12HR ORAL 04/01/20 09:00 04/04/20 21:01 04/02/20 20:13 Insulin Aspart (NovoLOG) BEFORE MEALS AND HS SUBQ 03/31/20 06:30 06/29/20 06:29 04/01/20 06:56 Lorazepam (Ativan) 1 mg Q6H PRN ORAL For Anxiety 03/31/20 16:00 04/07/20 15:59 Magnesium Hydroxide (Mom) 30 ml DAILY PRN ORAL Constipation 03/30/20 23:00 04/29/20 22:59 Metoprolol Tartrate (Lopressor) 25 mg EVERY 12 HOURS ORAL 03/31/20 09:00 06/29/20 08:59 04/02/20 09:10 Morphine Sulfate (Morphine Sulfate) 2 mg Q4H PRN IVP For Pain 03/31/20 03:30 04/07/20 03:29 04/03/20 04:15 Multivitamins Therapeutic (Therapeutic Multivitamin) 1 ea DAILY ORAL 03/31/20 09:00 04/30/20 08:59 04/02/20 09:10 Sennosides (Senokot) 17.2 mg BEDTIME ORAL 03/31/20 21:00 04/30/20 20:59 04/01/20 20:25 Trazodone HCl (Desyrel) 50 mg BEDTIME ORAL 03/31/20 21:00 04/30/20 20:59 04/02/20 20:13 Last 24 Hour Vital Signs Date Time Temp Pulse Resp B/P (MAP) Pulse Ox O2 Delivery O2 Flow Rate FiO2 04/03/20 04:45 98.6 04/03/20 04:00 98.6 79 19 146/62 (90) 95 04/03/20 04:00 82 04/03/20 00:00 98.6 77 19 135/105 (115) 94 04/02/20 21:00 Room Air 04/02/20 21:00 79 109/69 04/02/20 20:04 79 04/02/20 20:00 98.6 80 22 109/69 (82) 93 04/02/20 16:00 97.9 77 20 123/81 (95) 93 04/02/20 15:09 78 04/02/20 11:59 97.4 78 20 110/58 (75) 93 04/02/20 11:48 67 04/02/20 09:10 74 109/55 04/02/20 09:00 Room Air 04/02/20 08:00 97.9 74 20 109/55 (73) 93 04/02/20 07:42 63 04/02/20 04:00 69 04/02/20 04:00 98.8 90 18 137/77 (97) 93 04/02/20 00:00 97.7 72 19 131/60 (83) 94 04/02/20 00:00 69 04/01/20 21:00 Room Air 04/01/20 21:00 74 129/56 04/01/20 20:00 97.0 69 20 121/56 (77) 94 04/01/20 20:00 72 04/01/20 16:00 96.8 69 18 108/58 (75) 96 04/01/20 12:00 96.7 74 19 125/66 (85) 98 04/01/20 12:00 78 04/01/20 09:40 73 127/62 04/01/20 09:08 Room Air 04/01/20 08:17 96.6 73 19 127/62 (83) 98 04/01/20 08:00 77 Intake and Output 04/02/20 04/03/20 19:00 07:00 Intake Total 775 ml Output Total 650 ml Balance 125 ml Intake Oral 720 ml IV Total 55 ml Output Urine Total 650 ml # Voids 1 1 # Bowel Movements 1 Labs Test 03/31/20 14:05 04/01/20 04:00 04/02/20 05:54 Troponin I 0.000 ng/mL (0.000-0.056) 0.006 ng/mL (0.000-0.056) White Blood Count 7.5 K/UL (4.8-10.8) 6.6 K/UL (4.8-10.8) Red Blood Count 5.20 M/UL (4.70-6.10) 5.16 M/UL (4.70-6.10) Hemoglobin 15.2 G/DL (14.2-18.0) 15.0 G/DL (14.2-18.0) Hematocrit 45.3 % (42.0-52.0) 44.6 % (42.0-52.0) Mean Corpuscular Volume 87 FL (80-99) 86 FL (80-99) Mean Corpuscular Hemoglobin 29.2 PG (27.0-31.0) 29.1 PG (27.0-31.0) Mean Corpuscular Hemoglobin Concent 33.5 G/DL (32.0-36.0) 33.6 G/DL (32.0-36.0) Red Cell Distribution Width 13.7 % (11.6-14.8) 13.7 % (11.6-14.8) Platelet Count 82 K/UL (150-450) 73 K/UL (150-450) Mean Platelet Volume 7.9 FL (6.5-10.1) 9.6 FL (6.5-10.1) Neutrophils (%) (Auto) % (45.0-75.0) % (45.0-75.0) Lymphocytes (%) (Auto) % (20.0-45.0) % (20.0-45.0) Monocytes (%) (Auto) % (1.0-10.0) % (1.0-10.0) Eosinophils (%) (Auto) % (0.0-3.0) % (0.0-3.0) Basophils (%) (Auto) % (0.0-2.0) % (0.0-2.0) Sodium Level 144 MMOL/L (136-145) 140 MMOL/L (136-145) Potassium Level 3.9 MMOL/L (3.5-5.1) 3.9 MMOL/L (3.5-5.1) Chloride Level 108 MMOL/L (98-107) 108 MMOL/L (98-107) Carbon Dioxide Level 26 MMOL/L (21-32) 23 MMOL/L (21-32) Anion Gap 10 mmol/L (5-15) 9 mmol/L (5-15) Blood Urea Nitrogen 14 mg/dL (7-18) 12 mg/dL (7-18) Creatinine 0.9 MG/DL (0.55-1.30) 0.9 MG/DL (0.55-1.30) Estimat Glomerular Filtration Rate > 60 mL/min (>60) > 60 mL/min (>60) Glucose Level 166 MG/DL (74-106) 109 MG/DL (74-106) Calcium Level 8.3 MG/DL (8.5-10.1) 8.1 MG/DL (8.5-10.1) Differential Total Cells Counted 100 Neutrophils % (Manual) 64 % (45-75) Lymphocytes % (Manual) 26 % (20-45) Monocytes % (Manual) 8 % (1-10) Eosinophils % (Manual) 2 % (0-3) Basophils % (Manual) 0 % (0-2) Band Neutrophils 0 % (0-8) Platelet Estimate Decreased Platelet Morphology Normal Red Blood Cell Morphology Normal Magnesium Level 1.9 MG/DL (1.8-2.4) Height (Feet): 5 Height (Inches): 9.00 Weight (Pounds): 200 Objective VITAL SIGNS: Reviewed GENERAL: This is a very unfortunate 53-year-old gentleman, chronically ill, in no apparent respiratory distress. HEENT: Atraumatic and normocephalic. Anicteric. perrl. NECK: JVP is less than 5 cm. No carotid bruits. Carotid upstrokes 2+ bilaterally. CARDIOVASCULAR: Normal S1 and S2. Regular rate and rhythm. No murmurs, gallops, or rubs. PMI is at fourth intercostal space at the midclavicular line. LUNGS: Clear to auscultation bilaterally. ABDOMEN: Soft, nontender, and nondistended. No hepatosplenomegaly. Positive bowel sounds. EXTREMITIES: No evidence of edema, clubbing, or cyanosis. Bebo Agustin MD April 03, 2020 07:36
--- NOTE | 2020-04-03 07:54 | NUR ---
HAND-OFF: Report given to Oracio ANGULO.
[2020-04-03 07:55] LABS: HEMATOCRIT 42.7 % (42.0-52.0); HEMOGLOBIN 14.6 G/DL (14.2-18.0); MEAN CORPUSCULAR VOLUME 86 FL (80-99); PLATELET COUNT 69 K/UL (150-450); RED BLOOD COUNT 4.95 M/UL (4.70-6.10); RED CELL DISTRIBUTION WIDTH 13.3 % (11.6-14.8); WHITE BLOOD COUNT 5.3 K/UL (4.8-10.8)
[2020-04-03 08:00] VITALS: BP 132/88
[2020-04-03 08:05] LABS: ANION GAP 8 mmol/L (5-15); BLOOD UREA NITROGEN 13 mg/dL (7-18); CALCIUM 8.3 MG/DL (8.5-10.1); CARBON DIOXIDE 25 MMOL/L (21-32); CHLORIDE 107 MMOL/L (98-107); CREATININE 0.9 MG/DL (0.55-1.30); POTASSIUM 3.6 MMOL/L (3.5-5.1); SODIUM 140 MMOL/L (136-145)
[2020-04-03] MEDS: Multivitamin w/Minerals tab ORAL SCH (08:30)
[2020-04-03] MEDS: Ascorbic Acid 500mg tab ORAL SCH (08:30)
[2020-04-03] MEDS: Docusate 100mg cap ORAL SCH (08:31)
--- NOTE | 2020-04-03 10:48 | Infectious Diseases Prog Note ---
Assessment/Plan Assessment/Plan antibiotics : hydroxychloroquine A 1. UTI s/p rx 2. COVID 19 pneumonia 3. hypertension 4. CVA 5. CAD P 1. continue hydroxychloroquine 1 more day 2 continue isolation Subjective Constitutional: Denies: fever, chills Respiratory: Denies: shortness of breath, dry cough Cardiovascular: Reports: chest pain Gastrointestinal/Abdominal: Denies: nausea, vomiting, diarrhea Allergies: Coded Allergies: ACETAMINOPHEN (Verified Allergy, Unknown, 08/28/18) ASPIRIN (Verified Allergy, Unknown, 08/28/18) FISH DERIVED (Verified Allergy, Unknown, 10/19/19) KETOROLAC (Verified Allergy, Unknown, 08/28/18) NSAIDS (NON-STEROIDAL ANTI-INFLAMMA (Verified Allergy, Unknown, 09/09/18) TRAMADOL (Verified Allergy, Unknown, 10/19/19) Objective Vital Signs Last 24 Hour Vital Signs Date Time Temp Pulse Resp B/P (MAP) Pulse Ox O2 Delivery O2 Flow Rate FiO2 04/03/20 08:38 Room Air 04/03/20 08:31 80 132/88 04/03/20 08:00 98.4 80 20 132/88 (103) 95 04/03/20 04:45 98.6 04/03/20 04:00 98.6 79 19 146/62 (90) 95 04/03/20 04:00 82 04/03/20 00:00 98.6 77 19 135/105 (115) 94 04/02/20 21:00 Room Air 04/02/20 21:00 79 109/69 04/02/20 20:04 79 04/02/20 20:00 98.6 80 22 109/69 (82) 93 04/02/20 16:00 97.9 77 20 123/81 (95) 93 04/02/20 15:09 78 04/02/20 11:59 97.4 78 20 110/58 (75) 93 04/02/20 11:48 67 Height (Feet): 5 Height (Inches): 9.00 Weight (Pounds): 200 Respiratory/Chest: lungs clear Cardiovascular: normal rate, regular rhythm, no gallop/murmur Abdomen: soft, non tender Extremities: no edema Laboratory Tests Test 04/03/20 07:15 White Blood Count 5.3 K/UL (4.8-10.8) Red Blood Count 4.95 M/UL (4.70-6.10) Hemoglobin 14.6 G/DL (14.2-18.0) Hematocrit 42.7 % (42.0-52.0) Mean Corpuscular Volume 86 FL (80-99) Mean Corpuscular Hemoglobin 29.5 PG (27.0-31.0) Mean Corpuscular Hemoglobin Concent 34.1 G/DL (32.0-36.0) Red Cell Distribution Width 13.3 % (11.6-14.8) Platelet Count 69 K/UL (150-450) L Mean Platelet Volume 9.6 FL (6.5-10.1) Neutrophils (%) (Auto) % (45.0-75.0) Lymphocytes (%) (Auto) % (20.0-45.0) Monocytes (%) (Auto) % (1.0-10.0) Eosinophils (%) (Auto) % (0.0-3.0) Basophils (%) (Auto) % (0.0-2.0) Neutrophils % (Manual) Pending Lymphocytes % (Manual) Pending Platelet Estimate Pending Platelet Morphology Pending Sodium Level 140 MMOL/L (136-145) Potassium Level 3.6 MMOL/L (3.5-5.1) Chloride Level 107 MMOL/L (98-107) Carbon Dioxide Level 25 MMOL/L (21-32) Anion Gap 8 mmol/L (5-15) Blood Urea Nitrogen 13 mg/dL (7-18) Creatinine 0.9 MG/DL (0.55-1.30) Estimat Glomerular Filtration Rate > 60 mL/min (>60) Glucose Level 204 MG/DL (74-106) H Calcium Level 8.3 MG/DL (8.5-10.1) L Current Medications Medications (Trade) Dose Ordered Sig/Hugo Route PRN Reason Start Time Stop Time Status Last Admin Dose Admin Aripiprazole (Abilify) 5 mg BEDTIME ORAL 03/31/20 21:00 05/15/20 20:59 04/02/20 20:13 Ascorbic Acid (Vitamin C) 500 mg DAILY ORAL 03/31/20 09:00 04/30/20 08:59 04/03/20 08:30 Atorvastatin Calcium (Lipitor) 20 mg BEDTIME ORAL 04/02/20 21:00 06/29/20 20:59 04/02/20 20:13 Clopidogrel Bisulfate (Plavix) 75 mg DAILY ORAL 03/31/20 09:00 04/30/20 08:59 04/03/20 08:31 Dextrose (Dextrose 50%) 25 ml Q30M PRN IV Hypoglycemia 03/30/20 23:00 06/28/20 22:59 Dextrose (Dextrose 50%) 50 ml Q30M PRN IV Hypoglycemia 03/30/20 23:00 06/28/20 22:59 Docusate Sodium (Colace) 100 mg DAILY ORAL 03/31/20 09:00 04/30/20 08:59 04/03/20 08:31 Finasteride (Proscar) 5 mg DAILY ORAL 03/31/20 09:00 06/29/20 08:59 04/03/20 08:31 Gabapentin (Neurontin) 600 mg THREE TIMES A DAY ORAL 03/31/20 09:00 04/30/20 08:59 04/03/20 08:30 Hydroxychloroquine Sulfate (Plaquenil) 200 mg Q12HR ORAL 04/01/20 09:00 04/04/20 21:01 04/03/20 08:30 Insulin Aspart (NovoLOG) BEFORE MEALS AND HS SUBQ 03/31/20 06:30 06/29/20 06:29 04/01/20 06:56 Lorazepam (Ativan) 1 mg Q6H PRN ORAL For Anxiety 03/31/20 16:00 04/07/20 15:59 Magnesium Hydroxide (Mom) 30 ml DAILY PRN ORAL Constipation 03/30/20 23:00 04/29/20 22:59 Metoprolol Tartrate (Lopressor) 25 mg EVERY 12 HOURS ORAL 03/31/20 09:00 06/29/20 08:59 04/03/20 08:31 Morphine Sulfate (Morphine Sulfate) 2 mg Q4H PRN IVP For Pain 03/31/20 03:30 04/07/20 03:29 04/03/20 08:26 Multivitamins Therapeutic (Therapeutic Multivitamin) 1 ea DAILY ORAL 03/31/20 09:00 04/30/20 08:59 04/03/20 08:30 Sennosides (Senokot) 17.2 mg BEDTIME ORAL 03/31/20 21:00 04/30/20 20:59 04/01/20 20:25 Trazodone HCl (Desyrel) 50 mg BEDTIME ORAL 03/31/20 21:00 04/30/20 20:59 04/02/20 20:13 Alex Mccord MD April 03, 2020 10:47
--- NOTE | 2020-04-03 11:45 | Cardiac Electrophysiology PN ---
Assessment/Plan Assessment/Plan 1. Chest pain and shortness of breath due to COVID pneumonia. All troponins are negative. EKG no acute ischemic changes. Echocardiogram Nl EF. On metoprolol 25 mg b.i.d., Plavix and Lipitor. 2. Hyperlipidemia, on Lipitor. 3. Hypertension, on metoprolol 25 mg b.i.d. 4. Positive COVID. Still on Plaquenil. Repeat EKG 04/02/20 showed QT 448. Low voltage ECG. Echo no pericardial effusion 5. Psych disorder, on Abilify. BETZY RN Subjective Subjective No new events on tele in [place]. Still asking for morphine. On iv Abx Objective Last 24 Hour Vital Signs Date Time Temp Pulse Resp B/P (MAP) Pulse Ox O2 Delivery O2 Flow Rate FiO2 04/03/20 08:38 Room Air 04/03/20 08:31 80 132/88 04/03/20 08:00 98.4 80 20 132/88 (103) 95 04/03/20 08:00 83 04/03/20 04:45 98.6 04/03/20 04:00 98.6 79 19 146/62 (90) 95 04/03/20 04:00 82 04/03/20 00:00 98.6 77 19 135/105 (115) 94 04/02/20 21:00 Room Air 04/02/20 21:00 79 109/69 04/02/20 20:04 79 04/02/20 20:00 98.6 80 22 109/69 (82) 93 04/02/20 16:00 97.9 77 20 123/81 (95) 93 04/02/20 15:09 78 04/02/20 11:59 97.4 78 20 110/58 (75) 93 04/02/20 11:48 67 Intake and Output 04/02/20 04/03/20 19:00 07:00 Intake Total 775 ml Output Total 650 ml Balance 125 ml Intake Oral 720 ml IV Total 55 ml Output Urine Total 650 ml # Voids 1 1 # Bowel Movements 1 Laboratory Tests Test 04/03/20 07:15 White Blood Count 5.3 K/UL (4.8-10.8) Red Blood Count 4.95 M/UL (4.70-6.10) Hemoglobin 14.6 G/DL (14.2-18.0) Hematocrit 42.7 % (42.0-52.0) Mean Corpuscular Volume 86 FL (80-99) Mean Corpuscular Hemoglobin 29.5 PG (27.0-31.0) Mean Corpuscular Hemoglobin Concent 34.1 G/DL (32.0-36.0) Red Cell Distribution Width 13.3 % (11.6-14.8) Platelet Count 69 K/UL (150-450) L Mean Platelet Volume 9.6 FL (6.5-10.1) Neutrophils (%) (Auto) % (45.0-75.0) Lymphocytes (%) (Auto) % (20.0-45.0) Monocytes (%) (Auto) % (1.0-10.0) Eosinophils (%) (Auto) % (0.0-3.0) Basophils (%) (Auto) % (0.0-2.0) Differential Total Cells Counted 100 Neutrophils % (Manual) 62 % (45-75) Lymphocytes % (Manual) 25 % (20-45) Monocytes % (Manual) 9 % (1-10) Eosinophils % (Manual) 3 % (0-3) Basophils % (Manual) 1 % (0-2) Band Neutrophils 0 % (0-8) Platelet Estimate Decreased L Platelet Morphology Normal Red Blood Cell Morphology Normal Sodium Level 140 MMOL/L (136-145) Potassium Level 3.6 MMOL/L (3.5-5.1) Chloride Level 107 MMOL/L (98-107) Carbon Dioxide Level 25 MMOL/L (21-32) Anion Gap 8 mmol/L (5-15) Blood Urea Nitrogen 13 mg/dL (7-18) Creatinine 0.9 MG/DL (0.55-1.30) Estimat Glomerular Filtration Rate > 60 mL/min (>60) Glucose Level 204 MG/DL (74-106) H Calcium Level 8.3 MG/DL (8.5-10.1) L Objective HEAD AND NECK: No JVD. LUNGS: Clear. CARDIOVASCULAR: Regular S1 and S2 with no gallop or murmur. ABDOMEN: Soft. EXTREMITIES: No pitting edema. Tu Benton MD April 03, 2020 11:45
[2020-04-03 12:00] VITALS: BP 135/65
--- NOTE | 2020-04-03 13:12 | General Progress Note ---
Assessment/Plan Problem List: (1) Diabetes ICD Codes: E11.9 - Type 2 diabetes mellitus without complications SNOMED: 80371382 (2) Neuropathy ICD Codes: G62.9 - Polyneuropathy, unspecified SNOMED: 099377171 (3) HTN (hypertension) ICD Codes: I10 - Essential (primary) hypertension SNOMED: 75178238 (4) Pneumonia due to COVID-19 virus ICD Codes: U07.1 - COVID-19; J12.89 - Other viral pneumonia SNOMED: 716797754, 383081361 (5) Chest pain ICD Codes: R07.9 - Chest pain, unspecified SNOMED: 97457781, 292335570 (6) History of CVA (cerebrovascular accident) ICD Codes: Z86.73 - Personal history of transient ischemic attack (TIA), and cerebral infarction without residual deficits SNOMED: 477814614 (7) Thrombocytopenia ICD Codes: D69.6 - Thrombocytopenia, unspecified SNOMED: 187876443 (8) UTI (urinary tract infection) ICD Codes: N39.0 - Urinary tract infection, site not specified SNOMED: 09264262 (9) ACS (acute coronary syndrome) ICD Codes: I24.9 - Acute ischemic heart disease, unspecified SNOMED: 276014534 Status: stable, progressing Assessment/Plan: o2 pulm tx prn abx pt diet eval dc if clear Subjective Constitutional: Reports: weakness Allergies: Coded Allergies: ACETAMINOPHEN (Verified Allergy, Unknown, 08/28/18) ASPIRIN (Verified Allergy, Unknown, 08/28/18) FISH DERIVED (Verified Allergy, Unknown, 10/19/19) KETOROLAC (Verified Allergy, Unknown, 08/28/18) NSAIDS (NON-STEROIDAL ANTI-INFLAMMA (Verified Allergy, Unknown, 09/09/18) TRAMADOL (Verified Allergy, Unknown, 10/19/19) All Systems: reviewed and negative except above Subjective sleepy in bed Objective Last 24 Hour Vital Signs Date Time Temp Pulse Resp B/P (MAP) Pulse Ox O2 Delivery O2 Flow Rate FiO2 04/03/20 12:00 72 04/03/20 12:00 98.0 72 20 135/65 (88) 96 04/03/20 08:38 Room Air 04/03/20 08:31 80 132/88 04/03/20 08:00 98.4 80 20 132/88 (103) 95 04/03/20 08:00 83 04/03/20 04:45 98.6 04/03/20 04:00 98.6 79 19 146/62 (90) 95 04/03/20 04:00 82 04/03/20 00:00 98.6 77 19 135/105 (115) 94 04/02/20 21:00 Room Air 04/02/20 21:00 79 109/69 04/02/20 20:04 79 04/02/20 20:00 98.6 80 22 109/69 (82) 93 04/02/20 16:00 97.9 77 20 123/81 (95) 93 04/02/20 15:09 78 Intake and Output 04/02/20 04/03/20 19:00 07:00 Intake Total 775 ml Output Total 650 ml Balance 125 ml Intake Oral 720 ml IV Total 55 ml Output Urine Total 650 ml # Voids 1 1 # Bowel Movements 1 Laboratory Tests 04/03/20 07:15: White Blood Count 5.3, Red Blood Count 4.95, Hemoglobin 14.6, Hematocrit 42.7, Mean Corpuscular Volume 86, Mean Corpuscular Hemoglobin 29.5, Mean Corpuscular Hemoglobin Concent 34.1, Red Cell Distribution Width 13.3, Platelet Count 69L, Mean Platelet Volume 9.6, Neutrophils (%) (Auto) , Lymphocytes (%) (Auto) , Monocytes (%) (Auto) , Eosinophils (%) (Auto) , Basophils (%) (Auto) , Differential Total Cells Counted 100, Neutrophils % (Manual) 62, Lymphocytes % ( Manual) 25, Monocytes % (Manual) 9, Eosinophils % (Manual) 3, Basophils % ( Manual) 1, Band Neutrophils 0, Platelet Estimate DecreasedL, Platelet Morphology Normal, Red Blood Cell Morphology Normal, Sodium Level 140, Potassium Level 3.6, Chloride Level 107, Carbon Dioxide Level 25, Anion Gap 8, Blood Urea Nitrogen 13, Creatinine 0.9, Estimat Glomerular Filtration Rate > 60 , Glucose Level 204H, Calcium Level 8.3L Height (Feet): 5 Height (Inches): 9.00 Weight (Pounds): 200 General Appearance: lethargic EENT: normal ENT inspection Neck: normal alignment Cardiovascular: normal rate, regular rhythm Respiratory/Chest: no respiratory distress, no accessory muscle use Extremities: normal inspection Skin: normal pigmentation Roberto Georges DO April 03, 2020 13:12
--- NOTE | 2020-04-03 13:54 | NUR ---
DISCHARGE PLANNING DISCHARGE ORDER NOTED FAXED CLINICALS TO JE[facility]ENON T: [phone] AWAIT ACCEPTANCE AND ASSIGNED ROOM NUMBER
--- NOTE | 2020-04-03 14:39 | NUR ---
*-* DISCHARGE PLANNED *-* [facility] SKILLED T: [phone] FOR NURSE TO NURSE REPORT [facility] HAS BEEN ARRANGED FOR WILL CALL *-* ONCE CLEARED PLEASE CALL [phone] AND ACTIVATE D/C *-*
--- NOTE | 2020-04-03 15:04 | Pulmonology Progress Note ---
Subjective ROS Limited/Unobtainable: Yes Interval Events: none new Constitutional: Denies: fever, chills HEENT: Repors: no symptoms Respiratory: Reports: no symptoms Cardiovascular: Reports: no symptoms Gastrointestinal/Abdominal: Denies: nausea, vomiting, diarrhea Genitourinary: Reports: no symptoms Musculoskeletal: Reports: pain Allergies: Coded Allergies: ACETAMINOPHEN (Verified Allergy, Unknown, 08/28/18) ASPIRIN (Verified Allergy, Unknown, 08/28/18) FISH DERIVED (Verified Allergy, Unknown, 10/19/19) KETOROLAC (Verified Allergy, Unknown, 08/28/18) NSAIDS (NON-STEROIDAL ANTI-INFLAMMA (Verified Allergy, Unknown, 09/09/18) TRAMADOL (Verified Allergy, Unknown, 10/19/19) All Systems: reviewed and negative except above Objective Last 24 Hour Vital Signs Date Time Temp Pulse Resp B/P (MAP) Pulse Ox O2 Delivery O2 Flow Rate FiO2 04/03/20 13:08 98.0 04/03/20 12:00 72 04/03/20 12:00 98.0 72 20 135/65 (88) 96 04/03/20 08:38 Room Air 04/03/20 08:31 80 132/88 04/03/20 08:00 98.4 80 20 132/88 (103) 95 04/03/20 08:00 83 04/03/20 04:00 98.6 79 19 146/62 (90) 95 04/03/20 04:00 82 04/03/20 00:00 98.6 77 19 135/105 (115) 94 04/02/20 21:00 Room Air 04/02/20 21:00 79 109/69 04/02/20 20:04 79 04/02/20 20:00 98.6 80 22 109/69 (82) 93 04/02/20 16:00 97.9 77 20 123/81 (95) 93 04/02/20 15:09 78 Intake and Output 04/02/20 04/03/20 19:00 07:00 Intake Total 775 ml Output Total 650 ml Balance 125 ml Intake Oral 720 ml IV Total 55 ml Output Urine Total 650 ml # Voids 1 1 # Bowel Movements 1 General Appearance: no acute distress Respiratory: chest wall non-tender Cardiovascular: normal peripheral pulses Abdomen: normal bowel sounds Extremities: no cyanosis Laboratory Tests 04/03/20 07:15: White Blood Count 5.3, Red Blood Count 4.95, Hemoglobin 14.6, Hematocrit 42.7, Mean Corpuscular Volume 86, Mean Corpuscular Hemoglobin 29.5, Mean Corpuscular Hemoglobin Concent 34.1, Red Cell Distribution Width 13.3, Platelet Count 69L, Mean Platelet Volume 9.6, Neutrophils (%) (Auto) , Lymphocytes (%) (Auto) , Monocytes (%) (Auto) , Eosinophils (%) (Auto) , Basophils (%) (Auto) , Differential Total Cells Counted 100, Neutrophils % (Manual) 62, Lymphocytes % ( Manual) 25, Monocytes % (Manual) 9, Eosinophils % (Manual) 3, Basophils % ( Manual) 1, Band Neutrophils 0, Platelet Estimate DecreasedL, Platelet Morphology Normal, Red Blood Cell Morphology Normal, Sodium Level 140, Potassium Level 3.6, Chloride Level 107, Carbon Dioxide Level 25, Anion Gap 8, Blood Urea Nitrogen 13, Creatinine 0.9, Estimat Glomerular Filtration Rate > 60 , Glucose Level 204H, Calcium Level 8.3L Current Medications Medications (Trade) Dose Ordered Sig/Hugo Route PRN Reason Start Time Stop Time Status Last Admin Dose Admin Aripiprazole (Abilify) 5 mg BEDTIME ORAL 03/31/20 21:00 05/15/20 20:59 04/02/20 20:13 Ascorbic Acid (Vitamin C) 500 mg DAILY ORAL 03/31/20 09:00 04/30/20 08:59 04/03/20 08:30 Atorvastatin Calcium (Lipitor) 20 mg BEDTIME ORAL 04/02/20 21:00 06/29/20 20:59 04/02/20 20:13 Clopidogrel Bisulfate (Plavix) 75 mg DAILY ORAL 03/31/20 09:00 04/30/20 08:59 04/03/20 08:31 Dextrose (Dextrose 50%) 25 ml Q30M PRN IV Hypoglycemia 03/30/20 23:00 06/28/20 22:59 Dextrose (Dextrose 50%) 50 ml Q30M PRN IV Hypoglycemia 03/30/20 23:00 06/28/20 22:59 Docusate Sodium (Colace) 100 mg DAILY ORAL 03/31/20 09:00 04/30/20 08:59 04/03/20 08:31 Finasteride (Proscar) 5 mg DAILY ORAL 03/31/20 09:00 06/29/20 08:59 04/03/20 08:31 Gabapentin (Neurontin) 600 mg THREE TIMES A DAY ORAL 04/03/20 18:00 04/27/20 17:59 Hydroxychloroquine Sulfate (Plaquenil) 200 mg Q12HR ORAL 04/01/20 09:00 04/04/20 21:01 04/03/20 08:30 Insulin Aspart (NovoLOG) BEFORE MEALS AND HS SUBQ 03/31/20 06:30 06/29/20 06:29 04/01/20 06:56 Lorazepam (Ativan) 1 mg Q6H PRN ORAL For Anxiety 03/31/20 16:00 04/07/20 15:59 Magnesium Hydroxide (Mom) 30 ml DAILY PRN ORAL Constipation 03/30/20 23:00 04/29/20 22:59 Metoprolol Tartrate (Lopressor) 25 mg EVERY 12 HOURS ORAL 03/31/20 09:00 06/29/20 08:59 04/03/20 08:31 Morphine Sulfate (Morphine Sulfate) 2 mg Q4H PRN IVP For Pain 03/31/20 03:30 04/07/20 03:29 04/03/20 12:38 Multivitamins Therapeutic (Therapeutic Multivitamin) 1 ea DAILY ORAL 03/31/20 09:00 04/30/20 08:59 04/03/20 08:30 Sennosides (Senokot) 17.2 mg BEDTIME ORAL 03/31/20 21:00 04/30/20 20:59 04/01/20 20:25 Trazodone HCl (Desyrel) 50 mg BEDTIME ORAL 03/31/20 21:00 04/30/20 20:59 04/02/20 20:13 Assessment/Plan Assessment/Plan IMPRESSION: 1. Left lung pneumonia. 2. CAD. 3. CVA. 4. Psych disorder. 5. Rule out COVID-19. DISCUSSION: The patient has been tested recently as an outpatient as positive for COVID-19. Continue azithromycin and Plaquenil. Ordered oxygen and pulmonary hygiene. I will follow. SaO2 92-94 % on RA Angelina Fraire Omar Syed MD April 03, 2020 15:04
--- NOTE | 2020-04-03 15:08 | NUR ---
NURSE NOTES:Contacted Alonso to clarify how many units of PRBC's patient is to receive. Dr Ramos ordered 1 unit and then another order placed by Dr Angulo. Wanted to confirm if 2 units total or 3 units total are to be administered. Dr Angulo confirmed that he wants the patient to receive 2 units PRBC total. Addendum: 04/03/20 at 1515 by Oracio Caro RN CHARTED ON WRONG PATIENT, PLEASE IGNORE MESSAGE.
--- NOTE | 2020-04-03 15:37 | NUR ---
NURSE NOTES:called gat[facility] miner and gave report to ADELE Storey.
[2020-04-03 16:00] VITALS: BP 143/91
--- NOTE | 2020-04-03 16:04 | NUR ---
NURSE NOTES:Wilson removed per MD order. Patient tolerated well.
--- NOTE | 2020-04-03 17:50 | NUR ---
NURSE NOTES:Patient successfully voided post Wilson catheter removal.
--- NOTE | 2020-04-03 19:55 | NUR ---
NURSE NOTES: Got report from Oracio ANGULO. Pt in stable condition. No s/s of distress or discomfort noted. Pt resting in bed comfortably. Bed in low and locked position, call light within reach, bedside table within reach. Continue to monitor. Per report pt is to be discharged to [facility]. Awaiting [facility] transport.
[2020-04-03 20:00] VITALS: BP 123/59
[2020-04-03] MEDS: TraZODone 50mg tab ORAL SCH (21:00)
[2020-04-03] MEDS: Atorvastatin 20mg tab ORAL SCH (21:00)
[2020-04-03] MEDS: Sennosides 8.6mg tab ORAL SCH (21:00)
--- NOTE | 2020-04-03 21:25 | NUR ---
NURSE NOTES: Pt is discharged. [facility] came to transport pt to [facility]. VSS. Pt in stable condition.
--- NOTE | 2020-04-03 23:45 | Progress Note ---
DATE: 04/03/2020 SUBJECTIVE: This is a 54-year-old male patient. He has come in for acute coronary syndrome, rule out COVID-19, also has hypertension, chest pain, coronary artery disease, psychosis, cirrhosis, and nephrolithiasis. He has altered mental status, confusion, decline in cognition, below his baseline. That is why he does require daily psychiatric consultation. MENTAL STATUS EXAMINATION: This is a 54-year-old male. Appearance is disheveled. Attitude, irritable and agitated. Affect, guarded and restricted. Intellect poor. Mood, depressed and anxious. Motor activity, psychomotor agitation. Insight and judgment are poor. DIAGNOSIS: Major depressive disorder, mild, recurrent. PLAN: This patient is on medication regimen of trazodone 50 mg at bedtime and also treat him with Neurontin 600 mg 3 times a day. Twenty minutes of cognitive behavioral therapy to help him identify his automatic negative thoughts and convert those negative thoughts to more positive thoughts to reduce depression, anxiety, and mood lability. . Twenty minutes of cognitive behavioral therapy was provided. Chart was reviewed and discussed with staff. Seen and assessed at bedside. Amy Benites M.D. DR: Gio JOB#: [id number] CC:
--- NOTE | 2020-04-05 13:04 | Discharge Summary ---
Discharge Summary Discharge Summary _ DATE OF ADMISSION: 03/30/2020 DATE OF DISCHARGE: 04/03/2020 DISCHARGED BY: Dr. Georges REASON FOR ADMISSION: 54 years old male with past medical history of hypertension, hyperlipidemia, coronary artery disease, history of CVA with residual left-sided hemiparesis, psychiatric disorder was sent for evaluation due to shortness of breath and chest pain. Patient recently was tested positive for COVID-19. Patient reported left-sided chest pressure with pain radiating down his left shoulder and left arm as well as the left side of the neck. He denied tearing sensation in his chest. He reported shortness of breath , but denied any cough. He reported feeling feverish for last few days , but no recorded fevers. He reported some urinary discomfort , but denied hematuria. Upon evaluation vital signs were stable. Laboratory work-up revealed no leukocytosis ,stable hemoglobin ,hematocrit. Platelet count low 100. Urinalysis revealed +3 blood +1 leukocyte esterase pyuria and few bacteria. Lactic acid 1.2. AST 62 ALT 88. Troponin negative. EKG revealed sinus rhythm, no acute ischemic changes. Chest x-ray demonstrated retrocardiac airspace opacity: atelectasis versus infiltrate. In emergency department patient was treated with ceftriaxone and azithromycin and admitted to telemetry floor for further management to isolation room. CONSULTANTS: multi needle machine operator Dr. Grewal pulmonary Dr. Jaramillo ID specialist Dr. Mccord director of therapy services/oncologist Dr. Agustin psychiatrist Dr. Benites [facility]SE: Patient admitted telemetry floor. Patient was treated with Plaqueni and t received empiric antibiotic for pneumonia and UTI. Patient completed all medication while in the hospital. Pulse oximetry remained stable on room air. Blood cultures were negative. Urine culture were negative. Repeated SARS-COV- 2 by PCR on 04/02 was still detected. Continue isolation in the facility. Echocardiogram demonstrated normal left ventricular chamber size, systolic function and wall motion to the extent visualized. Mild left ventricular hypertrophy. Serial troponin were all negative. EKG revealed no acute ischemic changes. Patient was ruled out for acute myocardial infarction. Per multi needle machine operator chest pain or shortness and breath were likely due to COVID pneumonia. Blood pressure was managed with beta-ashley. Antiplatelet therapy with Plavix and statin continued. Platelet count closely monitored and trending down : from initial 100 down to 69. Per director of therapy services thrombocytopenia was most likely due to chronic hepatitis C along with positive COVID infection. Hepatitis panel and HIV test were reviewed from the prior admission and patient noted to have hepatitis C infection. Abdominal ultrasound was done prior to evaluate for cirrhosis and hepatosplenomegaly, and was negative. Psychiatric medication regimen was optimized as per psychiatrist. Cognitive behavioral therapy provided. Patient clinically stabilized and was ready for discharge [facility] facility for continuation of care. FINAL DIAGNOSES: Confirmed COVID-19 infection Pneumonia due to COVID-19 infection Chest pain and r shortness of breath due to COVID pneumonia Hypertension Hyperlipidemia History of CVA with left-sided hemiparesis Coronary artery disease Thrombocytopenia, likely due to chronic hepatitis C infection as well as COVID-19 infection Major depressive disorder, mild, recurrent DISCHARGE MEDICATIONS: See Medication Reconciliation list. DISCHARGE INSTRUCTIONS: Patient was discharged to the [facility] facility. Follow up with medical doctor at the facility. I have been assigned to dictate discharge summary for this account. I was not involved in the patient's management. Sharlene Chicas NP April 05, 2020 13:04
== END 2020-04-03 21:25 | DRG 177 ==
LOC: EDBD 17:52 → EMR 18:10 → 2E 18:50 → EDBEDREQ 19:16
DX: U07.1 COVID-19 (principal); J12.89 Other viral pneumonia; I69.354 Hemiplegia and hemiparesis following cerebral infarction affecting left non-dominant side; F20.0 Paranoid schizophrenia; F33.0 Major depressive disorder, recurrent, mild; E11.9 Type 2 diabetes mellitus without complications; I10 Essential (primary) hypertension; G62.9 Polyneuropathy, unspecified; J44.9 Chronic obstructive pulmonary disease, unspecified; N40.0 Benign prostatic hyperplasia without lower urinary tract symptoms; Z79.02 Long term (current) use of antithrombotics/antiplatelets; Z88.6 Allergy status to analgesic agent; E78.5 Hyperlipidemia, unspecified; I25.10 Atherosclerotic heart disease of native coronary artery without angina pectoris; F17.200 Nicotine dependence, unspecified, uncomplicated; D69.6 Thrombocytopenia, unspecified; R07.89 Other chest pain; I25.2 Old myocardial infarction
CPT/HCPCS: 36415; 71045; 80048; 80053; 81003; 82550; 82553; 82962; 83605; 83735; 84484; 85007; 85025; 87040; 87081; 87086; 87635; 93005; 93306; 96365; 96367; 96375; 99285; J1815

== ENCOUNTER 2020-05-21 18:41 | Inpatient (IN) | payer MEDICARE, OTHER ==
[~2020-05-21] VITALS: Ht 177.8 cm; Wt 89.8 kg
[~2020-05-21 18:41] MED LIST changes: +HUMALOG100 UNIT/3 SUBQ; +MOTRIN IB200 MG ORAL; +MYLANTA MAXIMU355 ML PO
[2020-05-21] MEDS ORDERED: Morphine Sulfate 4mg/ml Inj (IV USE ONLY) IVP ONE (19:00)
[2020-05-21] MEDS ORDERED: Nitroglycerin 2% oint pkt TOPIC ONE (19:00)
[2020-05-21 19:15] VITALS: BP 131/59
--- NOTE | 2020-05-21 19:15 | NUR ---
ED Nurse Note: Pt brought into ED by [facility] RA [facility] from [facility] for c/o chest pain onset at 1500 today. Pt states pain is burning like in nature and radiates to L shoulder. Pt also reports R sided flank pain. Per GENET, pt was given 2 doses of nitro by SNF staff, 2 doses of nitro en route by [facility] and 324mg of aspirin. Pt presented to ED on NC at 6L oxygen. Pt is not having any difficulty breathing and breathing is normal and unlabored. Pt remains on NC but RN reduced to 2L oxygen at this time and saturation is 98%. Pt is slower to speak, but aaox4. Pt also has L sided deficits due to stroke. Pt states he was diagnosed with COVID back in January and has not had any symptoms recently. Pt denies feeling short of breath, cough or fever. Pt connected to surveillance system monitor. All safety measures in place. Will continue to monitor. Vital signs are stable at this time.
--- NOTE | 2020-05-21 19:31 | Emergency Room Report ---
History of Present Illness General Chief Complaint: Chest Pain Source: Patient Present Illness HPI Patient has had left-sided chest pressure. It started while he was watching TV. He is already taken 2 sprays of nitroglycerin at the home where he was. He rates it 8/10. He feels like somebody squeezing his chest. He has had heart attacks and that is post cardiopulmonary arrest in the past. He is also had a stroke in the past. EMS were summoned and gave the patient aspirin and nitroglycerin. He says neither helped him. He denies any fevers or chills. The patient also has a history of an MN and it is known he has coronary artery disease. In addition the patient has right flank pain. He rates this even stronger than the chest pain. He rates his 9/10. He feels pressure and aching. He feels like he is kidneys are failing him. He denies hematuria or dysuria. Patient has had a ureteral stent and renal stones in the past. No sore throat, palpitations, nausea, vomiting, diarrhea, joint pain, visual changes, dizziness, headache. The patient was admitted for urinary tract infection in March of this year and tested positive for COVID-19. Discharge diagnoses: Confirmed COVID-19 infection Pneumonia due to COVID-19 infection Chest pain and r shortness of breath due to COVID pneumonia Hypertension Hyperlipidemia History of CVA with left-sided hemiparesis Coronary artery disease Thrombocytopenia, likely due to chronic hepatitis C infection as well as COVID-19 infection Major depressive disorder, mild, recurrent Allergies: Coded Allergies: ACETAMINOPHEN (Verified Allergy, Unknown, 08/28/18) ASPIRIN (Verified Allergy, Unknown, 08/28/18) FISH DERIVED (Verified Allergy, Unknown, 10/19/19) KETOROLAC (Verified Allergy, Unknown, 08/28/18) NSAIDS (NON-STEROIDAL ANTI-INFLAMMA (Verified Allergy, Unknown, 09/09/18) TRAMADOL (Verified Allergy, Unknown, 10/19/19) COVID-19 Screening Contact w/high risk pt: No Recent Travel to affected area: No Experienced COVID-19 symptoms?: No COVID-19 symptoms experienced: Shortness of Breath COVID-19 Testing performed VESSEL ORDINARY SEAMAN: No Patient History Past Medical History: see triage record, old chart reviewed Social History: Denies: smoking Social History Narrative [facility] facility Reviewed Nursing Documentation: PMH: Agreed; PSxH: Agreed Nursing Documentation-PMH Past Medical History: No History, Except For Hx Hypertension: Yes - GERD, MN, HEP C+ Hx Pacemaker: No - polyneuropathy, thrombocytopenia Hx Diabetes: Yes Hx Cancer: No Hx Gastrointestinal Problems: Yes - abdominal pain Hx Dialysis: No - History of kidney stones, UTI, BPH Hx Neurological Problems: Yes Hx Cerebrovascular Accident: Yes Hx Weakness: Yes Hx Neurologic Surgery: No Physical Exam Vital Signs Date Time Temp Pulse Resp B/P (MAP) Pulse Ox O2 Delivery O2 Flow Rate FiO2 05/21/20 18:43 99.0 79 20 131/59 (83) 96 Room Air Sp02 EP Interpretation: reviewed, normal General Appearance: no apparent distress, alert, non-toxic, Chronically Ill Head: normocephalic Eyes: bilateral eye normal inspection, bilateral eye PERRL, bilateral eye EOMI ENT: moist mucus membranes Neck: supple Respiratory: chest non-tender, lungs clear, normal breath sounds Cardiovascular #1: regular rate, rhythm Cardiovascular #2: 2+ radial (L) Gastrointestinal: normal inspection, normal bowel sounds, non tender, no mass, non-distended, overweight Genitourinary: no CVA tenderness Musculoskeletal: back normal, other - Contractures and decreased range of motion Neurologic: alert, oriented x3, sensory intact, motor weakness - Left hemiparesis Psychiatric: depressed affect Skin: warm/dry, other Medical Decision Making Diagnostic Impression: Primary Impression: Chest pain Qualified Codes: R07.9 - Chest pain, unspecified Additional Impressions: UTI (urinary tract infection) Qualified Codes: N39.0 - Urinary tract infection, site not specified Flank pain ER Course Patient presents with chest pain and right flank pain. She has multiple core morbidities. Differential includes acute myocardial infarction, unstable angina , GERD, atypical chest pain, renal stone, pyelonephritis amongst others. Patient evaluated with EKG, chest x-ray and labs. Further imaging studies may need to be done to evaluate his right kidney. Patient placed on a alarm security or surveillance monitor. Nitroglycerin is ordered for his chest. Also morphine and Zofran. Extremely complicated patient with high comorbidities. Most likely he will need to be observed. EKG with low voltage no injury but nonspecific ST-T wave changes. CXR no infiltrates. Cardiomegally. Initial troponin negative. CBC unremarkable aside from slightly low platelets. Pyuria. Rocephin ordered. Patient pain improved with treatment. Due to cardiac risk factors patient is admitted for observation. Laboratory Tests Test 05/21/20 19:30 05/21/20 19:50 White Blood Count 8.7 K/UL (4.8-10.8) Red Blood Count 5.75 M/UL (4.70-6.10) Hemoglobin 16.5 G/DL (14.2-18.0) Hematocrit 52.2 % (42.0-52.0) H Mean Corpuscular Volume 91 FL (80-99) Mean Corpuscular Hemoglobin 28.6 PG (27.0-31.0) Mean Corpuscular Hemoglobin Concent 31.5 G/DL (32.0-36.0) L Red Cell Distribution Width 15.0 % (11.6-14.8) H Platelet Count 115 K/UL (150-450) L Mean Platelet Volume 10.9 FL (6.5-10.1) H Neutrophils (%) (Auto) 63.9 % (45.0-75.0) Lymphocytes (%) (Auto) 25.3 % (20.0-45.0) Monocytes (%) (Auto) 7.2 % (1.0-10.0) Eosinophils (%) (Auto) 2.8 % (0.0-3.0) Basophils (%) (Auto) 0.9 % (0.0-2.0) Prothrombin Time 11.8 SEC (9.30-11.50) H Prothrombin Time INR 1.1 (0.9-1.1) Activated Partial Thromboplast Time 30 SEC (23-33) Sodium Level 142 MMOL/L (136-145) Potassium Level 4.0 MMOL/L (3.5-5.1) Chloride Level 106 MMOL/L (98-107) Carbon Dioxide Level 26 MMOL/L (21-32) Anion Gap 10 mmol/L (5-15) Blood Urea Nitrogen 15 mg/dL (7-18) Creatinine 1.0 MG/DL (0.55-1.30) Estimated Glomerular Filtration Rate > 60 mL/min (>60) Glucose Level 107 MG/DL (74-106) H Calcium Level 8.4 MG/DL (8.5-10.1) L Total Bilirubin 0.6 MG/DL (0.2-1.0) Aspartate Amino Transferase (AST) 132 U/L (15-37) H Alanine Aminotransferase (ALT) 170 U/L (12-78) H Alkaline Phosphatase 91 U/L (46-116) Total Creatine Kinase 89 U/L (26-308) Troponin I 0.001 ng/mL (0.000-0.056) C-Reactive Protein, Quantitative 1.8 mg/dL (0.00-0.90) H Pro-B-Type Natriuretic Peptide 35 pg/mL (0-125) Total Protein 8.3 G/DL (6.4-8.2) H Albumin 3.2 G/DL (3.4-5.0) L Globulin 5.1 g/dL Albumin/Globulin Ratio 0.6 (1.0-2.7) L Lipase 201 U/L (73-393) Urine Color Yellow Urine Appearance Clear Urine pH 6 (4.5-8.0) Urine Specific [place] 1.020 (1.005-1.035) Urine Protein Negative (NEGATIVE) Urine Glucose (UA) Negative (NEGATIVE) Urine Ketones Negative (NEGATIVE) Urine Blood Negative (NEGATIVE) Urine Nitrite Negative (NEGATIVE) Urine Bilirubin Negative (NEGATIVE) Urine Urobilinogen 8 MG/DL (0.0-1.0) H Urine Leukocyte Esterase 1+ (NEGATIVE) H Urine RBC 0-2 /HPF (0 - 0) H Urine WBC 5-10 /HPF (0 - 0) H Urine Squamous Epithelial Cells None /LPF (NONE/OCC) Urine Bacteria None /HPF (NONE) Urine Trichomonas Moderate /HPF (NONE) H EKG Diagnostic Results Rate: normal Rhythm: NSR ST Segments: no acute changes - Low voltage, nonspecific ST-T wave changes Rhythm Strip Diag. Results EP Interpretation: yes Rhythm: NSR, no PVC's, no ectopy Chest X-Ray Diagnostic Results Chest X-Ray Diagnostic Results : Chest X-Ray Ordered: Yes # of Views/Limited/Complete: 1 View Indication: Chest Pain EP Interpretation: Yes Interpretation: no consolidation, no effusion, no pneumothorax, other - cardiomegally Impression: Other Electronically Signed by: Electronically signed by Will Barr MD Last Vital Signs Date Time Temp Pulse Resp B/P (MAP) Pulse Ox O2 Delivery O2 Flow Rate FiO2 05/22/20 00:00 70 05/22/20 00:00 96.4 20 105/51 (69) 98 05/21/20 21:53 Nasal Cannula 2.0 Status: improved Disposition: PLACE IN OBSERVATION Condition: Serious Will Barr MD May 21, 2020 19:31
[2020-05-21 19:55] LABS: BASOPHILS % (AUTO) 0.9 % (0.0-2.0); EOSINOPHILS % (AUTO) 2.8 % (0.0-3.0); HEMATOCRIT 52.2 % (42.0-52.0); HEMOGLOBIN 16.5 G/DL (14.2-18.0); LYMPHOCYTES % (AUTO) 25.3 % (20.0-45.0); MEAN CORPUSCULAR VOLUME 91 FL (80-99); MONOCYTES % (AUTO) 7.2 % (1.0-10.0); NEUTROPHILS % (AUTO) 63.9 % (45.0-75.0); PLATELET COUNT 115 K/UL (150-450); RED BLOOD COUNT 5.75 M/UL (4.70-6.10); WHITE BLOOD COUNT 8.7 K/UL (4.8-10.8)
[2020-05-21 20:04] LABS: APPEARANCE,URINE CLEAR; BILIRUBIN, URINE NEGATIVE (NEGATIVE); GLUCOSE, URINE (UA) NEGATIVE (NEGATIVE); KETONES,URINE NEGATIVE (NEGATIVE); LEUKOCYTE ESTERASE ,URINE 1+ (NEGATIVE); NITRITE,URINE NEGATIVE (NEGATIVE); PH,URINE 6 (4.5-8.0); PROTEIN,URINE NEGATIVE (NEGATIVE); UROBILINOGEN,URINE 8 MG/DL (0.0-1.0)
[2020-05-21 20:05] LABS: COLOR,URINE YELLOW
[2020-05-21 20:07] LABS: ANION GAP 10 mmol/L (5-15); BLOOD UREA NITROGEN 15 mg/dL (7-18); CALCIUM 8.4 MG/DL (8.5-10.1); CARBON DIOXIDE 26 MMOL/L (21-32); CHLORIDE 106 MMOL/L (98-107); INR 1.1 (0.9-1.1); SODIUM 142 MMOL/L (136-145)
[2020-05-21 20:17] LABS: ALANINE AMINOTRANSFERASE 170 U/L (12-78); ALBUMIN 3.2 G/DL (3.4-5.0); ALBUMIN/GLOBULIN RATIO 0.6 (1.0-2.7); ALKALINE PHOSPHATASE 91 U/L (46-116); ASPARTATE AMINO TRANSFERASE 132 U/L (15-37); BILIRUBIN,TOTAL 0.6 MG/DL (0.2-1.0); CREATINE KINASE 89 U/L (26-308)
[2020-05-21] MEDS ORDERED: cefTRIAXone 1 GM in NS 55 ML IVPB ONE (20:30)
[2020-05-21 20:50] VITALS: BP 115/61
--- NOTE | 2020-05-21 20:50 | NUR ---
ED Nurse Note: Pt is resting in bed, NAD. Pt temp is 99.8, ERMD made aware. Vital signs are stable, see flow sheet. Safety measures in place. Pt is aware of hospital admission.
--- NOTE | 2020-05-21 21:10 | NUR ---
ED Nurse Note: Report given to ADELE Carlisle.
--- NOTE | 2020-05-21 21:35 | NUR ---
ED Nurse Note: Pt is stable for transfer to tele unit at this time per ERMD. Pt is aaox4, breathing is normal and unlabored. Pt remains on 2L oxygen via NC with 99% oxygen saturation. Pt vital signs are stable, NAD noted. Pt has no belongings. Pt taken to unit via gurney, connected to cardiac catheterization technician by alexus and RN. Pt transferred to unit without complications. IVs are patent and intact.
--- NOTE | 2020-05-21 21:55 | NUR ---
NURSE NOTES: Received patient from ED nurse. AOx4. On 2L nasal cannula, saturating well. Admitted in the service of Dr. Georges. Admitted for chest pain. Nitroglycerin previously given. Still complaining of 8/10 pain, radiating to left shoulder. IV site on RFA @20g intact and flushed. Skin intact, but noted to have facial redness. Bed in lowest position, brakes engaged. Oriented to hospital policy. Call light and belongings placed within reach. Will continue to monitor.
[2020-05-21] MEDS: HYDROcodone/Acetamin 5/325 tab ORAL PRN (23:39)
[2020-05-22] VITALS (7 sets, daily range): BP systolic 103–155; BP diastolic 44–72
[2020-05-22] MEDS: HYDROcodone/Acetamin 5/325 tab ORAL PRN (06:47)
--- NOTE | 2020-05-22 07:33 | NUR ---
HAND-OFF: Report given to ADELE Platt. Plan of care endorsed.
--- NOTE | 2020-05-22 07:53 | NUR ---
NURSE NOTES: Received report from ADELE Carlisle. Pt A/O x3. No s/s of acute respiratory and cardiac distress. Currently on O2 2L NC. 2 SL on right FA 20G, patent and dressing intact. Bed in low position, side rails up x3 and call light within reach. Will continue to monitor.
[2020-05-22] MEDS: Docusate 100mg cap ORAL SCH (08:45)
[2020-05-22] MEDS: Ascorbic Acid 500mg tab ORAL SCH (08:46)
[2020-05-22] MEDS: Sertraline 50mg tab ORAL SCH (08:46)
--- NOTE | 2020-05-22 08:52 | Diagnostic Imaging Report ---
Indication: Chest pain Technique: One view of the chest Comparison: 03/30/2020 Findings: Body habitus limits evaluation. The heart is enlarged. There is some streaky atelectasis in the left perihilar region. There is a small amount of pleural fluid on the left. No definite infiltrates Impression: Suspect left pleural effusion Cardiomegaly Left perihilar atelectasis
--- NOTE | 2020-05-22 14:16 | NUR ---
NURSE NOTES:WOUND CARE NOTES:Pt presented on admission with generalized rash, Pressure injury L Buttocks. Red/brown scabbed rash noted to both upper ext ,Back ,buttocks and upper thighs. Pt stated areas are very itchy. Pt also verbalized he was prescribed Antipruritic creams. Partial thickness Pressure injury L buttocks. Base of wound is moist and viable. marginal erythema without induration periwound. Pt denied tenderness at affected area. Pt educated on wound prevention. Encouraged to frequently reposition self ,at least hourly. Instructed pt to avid sliding against bed linen . Tx.Plan: Apply Moisture Barrier Paste to L Buttocks. Cover with Optifoam drsg. Change every 3 days and prn. Encourage pt to reposition self at east hourly while in bed.
--- NOTE | 2020-05-22 15:45 | NUR ---
CASE MANAGEMENT:REVIEW 05/22/20 54 YR MALE BIBA FROM [facility] CC; CHEST PAIN SI: CHEST PAIN. FLANK PAIN. UTI 99.8 79 20 131/59 96% ON RA PLT-115 AST/ALT+132/170 TROPONIN(-) IS: NITRO 1" IV MORPHINE IV ZOFRAN 1L NS BOLUS CXR : TO TELEMETRY DCP: FROM [facility]
--- NOTE | 2020-05-22 16:14 | Consultation ---
DATE OF CONSULTATION: 05/22/2020 PULMONARY CONSULTATION CONSULTING PHYSICIAN: Quentin Jaramillo MD. HISTORY OF PRESENT ILLNESS: This is a 54-year-old male, who came to the hospital with chest pain. He states he was at home when he had sudden chest discomfort. He states he has a history of CAD and previously had a cardiac arrest. He also reports that he has had a stroke in the past. As noted, the patient was last seen here in March of this year and had a COVID-19 pneumonia. At that time, he was found to have CAD, CVA, thrombocytopenia, chronic hep C, as well as COVID-19 infection. The patient at this time states he is feeling better. PAST MEDICAL HISTORY: Notable for previous COVID-19 infection, history of pneumonia, hypertension, hyperlipidemia, previous CVA, CAD, thrombocytopenia, depression, and chronic hep C. ALLERGIES: To acetaminophen, aspirin, Toradol, NSAIDs, and tramadol. REVIEW OF SYSTEMS: Denies any headaches, hematemesis, melena, hematochezia, night sweats, or weight loss. PHYSICAL EXAMINATION: VITAL SIGNS: Blood pressure is 110/40, heart rate 64, respiratory rate , afebrile, O2 saturation 96% on 2 L of oxygen. GENERAL: Reveals a 54-year-old male. HEENT: Unremarkable. LUNGS: Clear breath sounds bilaterally. ABDOMEN: Soft. EXTREMITIES: There is no edema. NEUROLOGIC: Nonfocal. LABORATORY DATA: Lab testing shows normal CBC and BMP. Troponin negative x2. Coags are negative. Urinalysis negative. IMAGING STUDIES: X-ray chest obtained yesterday, which shows minimal left atelectasis and small effusion. IMPRESSION: 1. Atypical chest pain. 2. History of CAD. 3. Hypertension. 4. Previous COVID-19 pneumonia. 5. Depression. 6. Chronic hep C. DISCUSSION: Admit to the hospital. We will resume home medications. Await Cardiology evaluation. We will provide [place] for pain. We will follow carefully. Quentin Jaramillo M.D. DR: DALILA JOB#: [id number] CC:
--- NOTE | 2020-05-22 16:43 | Cardiac Electrophysiology PN ---
Subjective Subjective [id number] Objective Last 24 Hour Vital Signs Date Time Temp Pulse Resp B/P (MAP) Pulse Ox O2 Delivery O2 Flow Rate FiO2 05/22/20 12:00 96.9 69 20 112/52 (72) 95 05/22/20 09:00 Nasal Cannula 2.0 05/22/20 08:46 69 111/44 05/22/20 08:00 96.6 69 20 111/44 (66) 96 05/22/20 04:04 68 05/22/20 04:00 97.7 72 19 126/56 (79) 97 05/22/20 00:00 70 05/22/20 00:00 96.4 78 20 105/51 (69) 98 05/21/20 21:53 Nasal Cannula 2.0 05/21/20 21:35 99.8 62 15 106/60 99 Nasal Cannula 2.0 05/21/20 20:50 99.8 67 15 115/61 98 Nasal Cannula 2.0 05/21/20 20:09 99.8 05/21/20 19:40 131/59 05/21/20 19:15 79 20 Nasal Cannula 2.0 05/21/20 19:15 99.0 66 20 131/59 98 Nasal Cannula 2.0 05/21/20 18:43 99.0 79 20 131/59 (83) 96 Room Air Intake and Output 05/21/20 05/22/20 19:00 07:00 Intake Total 0 ml Output Total 350 ml Balance -350 ml Intake Oral 0 ml Output Urine Total 350 ml # Bowel Movements 1 Laboratory Tests Test 05/21/20 19:30 05/21/20 19:50 05/22/20 03:45 White Blood Count 8.7 K/UL (4.8-10.8) Red Blood Count 5.75 M/UL (4.70-6.10) Hemoglobin 16.5 G/DL (14.2-18.0) Hematocrit 52.2 % (42.0-52.0) H Mean Corpuscular Volume 91 FL (80-99) Mean Corpuscular Hemoglobin 28.6 PG (27.0-31.0) Mean Corpuscular Hemoglobin Concent 31.5 G/DL (32.0-36.0) L Red Cell Distribution Width 15.0 % (11.6-14.8) H Platelet Count 115 K/UL (150-450) L Mean Platelet Volume 10.9 FL (6.5-10.1) H Neutrophils (%) (Auto) 63.9 % (45.0-75.0) Lymphocytes (%) (Auto) 25.3 % (20.0-45.0) Monocytes (%) (Auto) 7.2 % (1.0-10.0) Eosinophils (%) (Auto) 2.8 % (0.0-3.0) Basophils (%) (Auto) 0.9 % (0.0-2.0) Prothrombin Time 11.8 SEC (9.30-11.50) H Prothromb Time International Ratio 1.1 (0.9-1.1) Activated Partial Thromboplast Time 30 SEC (23-33) Sodium Level 142 MMOL/L (136-145) Potassium Level 4.0 MMOL/L (3.5-5.1) Chloride Level 106 MMOL/L (98-107) Carbon Dioxide Level 26 MMOL/L (21-32) Anion Gap 10 mmol/L (5-15) Blood Urea Nitrogen 15 mg/dL (7-18) Creatinine 1.0 MG/DL (0.55-1.30) Estimat Glomerular Filtration Rate > 60 mL/min (>60) Glucose Level 107 MG/DL (74-106) H Calcium Level 8.4 MG/DL (8.5-10.1) L Total Bilirubin 0.6 MG/DL (0.2-1.0) Aspartate Amino Transf (AST/SGOT) 132 U/L (15-37) H Alanine Aminotransferase (ALT/SGPT) 170 U/L (12-78) H Alkaline Phosphatase 91 U/L (46-116) Total Creatine Kinase 89 U/L (26-308) Troponin I 0.001 ng/mL (0.000-0.056) 0.000 ng/mL (0.000-0.056) C-Reactive Protein, Quantitative 1.8 mg/dL (0.00-0.90) H Pro-B-Type Natriuretic Peptide 35 pg/mL (0-125) Total Protein 8.3 G/DL (6.4-8.2) H Albumin 3.2 G/DL (3.4-5.0) L Globulin 5.1 g/dL Albumin/Globulin Ratio 0.6 (1.0-2.7) L Lipase 201 U/L (73-393) Urine Color Yellow Urine Appearance Clear Urine pH 6 (4.5-8.0) Urine Specific [place] 1.020 (1.005-1.035) Urine Protein Negative (NEGATIVE) Urine Glucose (UA) Negative (NEGATIVE) Urine Ketones Negative (NEGATIVE) Urine Blood Negative (NEGATIVE) Urine Nitrite Negative (NEGATIVE) Urine Bilirubin Negative (NEGATIVE) Urine Urobilinogen 8 MG/DL (0.0-1.0) H Urine Leukocyte Esterase 1+ (NEGATIVE) H Urine RBC 0-2 /HPF (0 - 0) H Urine WBC 5-10 /HPF (0 - 0) H Urine Squamous Epithelial Cells None /LPF (NONE/OCC) Urine Bacteria None /HPF (NONE) Urine Trichomonas Moderate /HPF (NONE) H Microbiology Date/Time Source Procedure Growth Status 05/21/20 21:00 Rectum Received Tu Benton MD May 22, 2020 16:43
[2020-05-22] MEDS ORDERED: Lexiscan 0.4mg/5ml syringe IV PRN (16:44)
--- NOTE | 2020-05-22 18:00 | History and Physical Report ---
DATE OF ADMISSION: 05/21/2020 DATE AND TIME SEEN: On 05/22/2020, at 1 p.m. CONSULTANTS: 1. Quentin Jaramillo MD. 2. Tu Benton MD. 3. Amy Catherine MD. CHIEF COMPLAINT: Chest pain and shortness of breath. BRIEF HISTORY: This is a 54-year-old male, who lives at [facility] and apparently had substernal chest pain yesterday. No dizziness. Slightly short of breath. He came to [place], diagnosed with the above, and admitted to telemetry for further care. Currently, calm, slightly short of breath, sleepy in bed, and not talking much. REVIEW OF SYSTEMS: Unavailable. PAST MEDICAL HISTORY: Includes psych history, malnutrition, diabetes, hypertension, CVA, hepatitis C, and cirrhosis. PAST SURGICAL HISTORY: Unknown. ALLERGIES: Tylenol, aspirin, NSAID, ketorolac, and tramadol. MEDICATIONS: Include aripiprazole, trazodone, ascorbic acid, clopidogrel, famotidine, metoprolol, sertraline, and ceftriaxone. SOCIAL HISTORY: Unable to obtain. The patient is very sleepy currently. PHYSICAL EXAMINATION: GENERAL: Sleepy in bed, not talking much. VITAL SIGNS: Temperature is 96, pulse 69, respirations 20, blood pressure 111/44. GENERAL: Lethargic, sleepy. HEENT: Normocephalic and atraumatic. NECK: Trachea midline. CARDIOVASCULAR: A 1+ edema. LUNGS: Breathing comfortably on room air. ABDOMEN: No apparent wounds. EXTREMITIES: Show no cyanosis or clubbing. NEUROLOGIC: The patient moves all extremities slightly. LABORATORY AND DIAGNOSTIC DATA: Labs at this time show platelet 115,000, otherwise CBC is normal. BMP showed troponin 0.00, glucose 107, calcium 8.4. AST 132, ALT 170, albumin 3.2. Urinalysis showed 1+ leukocyte esterase. ASSESSMENT: Chest pain, shortness of breath, UTI, psych history, malnutrition, diabetes, hypertension, CVA, hepatitis C, and cirrhosis. PLAN: Pain control. Blood pressure and blood sugar control. Troponin q.8h. x3. EKG in the morning. O2 and pulmonary treatments. Antibiotics per Infectious Disease. We will continue to follow this patient. PT and dietary evaluation. CBC and BMP in the morning. Roberto Georges D.O. DR: Suzy JOB#: [id number] CC:
[2020-05-22] MEDS ORDERED: FLEET ENEMA133 ML RECTAL (18:53)
[2020-05-22] MEDS ORDERED: LOTRIMIN AF24 GM TP (18:53)
[2020-05-22] MEDS ORDERED: DULCOLAX10 MG RC (18:53)
[2020-05-22] MEDS ORDERED: DOCUSATE SODIU100 M2 ORAL (18:53)
[2020-05-22] MEDS ORDERED: HUMALOG100 UNIT/1 SUBQ (18:53)
[2020-05-22] MEDS ORDERED: SENNA8.6 M2 PO (18:53)
[2020-05-22] MEDS ORDERED: ADVANCED ANTAC355 ML ORAL (18:53)
[2020-05-22] MEDS ORDERED: MILK OF MA400 MG/51 ORAL (18:53)
[2020-05-22] MEDS ORDERED: NORCO 5-325 TA1 EAC1 ORAL (18:53)
[2020-05-22] MEDS ORDERED: SERTRALINE HCL25 MG ORAL (18:53)
[2020-05-22] MEDS ORDERED: DUONEB 0.5-3(2.53 ML HHN (18:53)
[2020-05-22] MEDS ORDERED: QUERCETIN DIHYDR1 GM PO (18:53)
[2020-05-22] MEDS ORDERED: MULTIVITAMINS1 EAC8 ORAL (18:53)
[2020-05-22] MEDS ORDERED: NITRO0.4 SL (18:53)
[2020-05-22] MEDS ORDERED: NIZORAL 2% C1 APPLIC TOPIC (18:53)
--- NOTE | 2020-05-22 19:40 | NUR ---
NURSE NOTES: Received report from ADELE Woodson. Pt A/O x4. No s/s of acute respiratory and cardiac distress. Currently on O2 2L NC. 2 IV sites, both SL on right FA 20G, IV's patent and dressing intact. Bed is locked in lowest position, side rails up x3 and call light within reach, bed alarm on. Will continue to monitor. Pt is NPO at midnight pending plan for stress test and echocardiogram
--- NOTE | 2020-05-22 20:00 | Consultation ---
DATE OF CONSULTATION: 05/22/2020 INITIAL PSYCHIATRIC EVALUATION AND CONSULTATION CONSULTING PHYSICIAN: Amy Benites MD. HISTORY OF PRESENT ILLNESS: This is a 54-year-old male came into [facility] with chest pain. I saw and assessed in his room today. He states he has pain. His chief complaint was "I need more pain medication, that is all I want to talk about." Patient is fixated on pain medications and opiate medications because he is in lot of pain. Even though he did come in for chest pain, but he admits that he does have some mood lability, depression, anxiety, and mood swings. He was unsure of his medications, so I went over his medications today. He did confirm that he does have his medications. He denies any current suicidal or homicidal ideations at this time, but he does endorse that he has intermittent suicidal ideations, although he is able to contract for safety in the hospital. MEDICAL HISTORY: Diabetes, neuropathy, hypertension, flank pain, chest pain, CVA, cirrhosis, urinary tract infection, hepatitis C, lower GI bleed, sepsis, intra-abdominal pain, thrombocytopenia. ALLERGIES: Acetaminophen, aspirin, ketorolac, NSAIDs. PSYCHOTROPIC MEDICATIONS ON ADMISSION: According to documentation, Zoloft 25 mg daily, Neurontin 600 mg three times a day, Abilify 4 mg at bedtime, trazodone 50 mg at bedtime. PAIN ASSESSMENT: 01/23 pain. DEVELOPMENTAL PROBLEMS: Denies. SUBSTANCE ABUSE HISTORY: Patient denies any use of any drug and alcohol use. FAMILY PSYCHIATRIC HISTORY: Denies. SOCIAL HISTORY: This patient is currently living in [facility]. He is financially supported by [employer] and Medicare. No known legal problems. poor. MENTAL STATUS EXAMINATION: This is a 54-year-old male. His appearance is disheveled. Attitude, irritable and agitated. Affect is labile. Intellect poor because he does not know current events, does not know last four presidents. Mood, depressed and anxious. Motor activity, psychomotor agitation. Attention span is poor because he cannot do serial sevens or spell world backwards. Orientation x2. He is oriented to person and place, not time and situation. Speech is pressured, nonsensical. Thought process, disorganized, illogical. Thought content, auditory hallucinations and paranoid delusions. Perception is poor because of perceptual disturbances, auditory hallucinations, paranoid delusions. Abstract reasoning is poor because he does not understand proverbs and only has concrete thinking. Insight is poor because he does not recognize having a psych disorder. Judgment is poor because he does not accept consequences for his actions. Short-term memory, 3/3 recall after 5-minute delay with good short-term memory. Long-term is intact. DIAGNOSES: 1. Paranoid schizophrenia with acute exacerbation. 2. No secondary. 3. Medical includes diabetes, neuropathy, hypertension, flank pain, chest pain, coronary artery disease, cirrhosis, nephrolithiasis, hepatitis C, sepsis, lower GI bleed. 4. Psychosocial stressors, financial. 5. Functional impairment is severe. PLAN: I am going to treat this patient with a psychotropic medication regimen consisting of Zoloft at a dose of 25 mg daily and Neurontin 600 mg three times a day as well as Abilify 4 mg at bedtime, trazodone 50 at bedtime. Twenty minutes of cognitive behavioral therapy to help him identify his automatic negative thoughts, help him convert his negative thoughts to more positive thoughts. Amy Benites M.D. DR: HERB JOB#: [id number] CC:
[2020-05-22] MEDS: ARIPiprazole 2mg tab ORAL SCH (21:24)
[2020-05-22] MEDS: TraZODone 50mg tab ORAL SCH (21:24)
[2020-05-22] MEDS: Atorvastatin 20mg tab ORAL SCH (21:24)
--- NOTE | 2020-05-22 21:41 | NUR ---
NURSE NOTES: Pt complained of R flank pain and backache, pain is 8/10. Received order from Dr Georges to give morphine sulfate 2 mg IV q 4hours prn pain. Will input and carry out order
--- NOTE | 2020-05-22 22:00 | Consultation ---
DATE OF CONSULTATION: 05/22/2020 CARDIOLOGY CONSULTATION CONSULTING PHYSICIAN: Tu Benton M.D. REFERRING PHYSICIAN: Roberto Georges D.O. REASON FOR THE CONSULTATION: Chest pain. HISTORY OF PRESENT ILLNESS: The patient is a 54-year-old gentleman with history of hypertension, diabetes, obesity, as well as recent COVID, as well as history of CVA with left arm and leg weakness, who also has old myocardial infarction. The patient states that he has had previously cardiac arrest with history of stroke. The patient had COVID this year. The patient also has chronic hepatitis C and thrombocytopenia. The patient came to the emergency room complaining of chest pain and a Cardiology consultation was requested for further evaluation. At the time of my evaluation, the patient is asking for morphine. REVIEW OF SYSTEMS: Review of systems was negative other than what was mentioned in the history of present illness. PAST MEDICAL HISTORY: As mentioned above. FAMILY HISTORY: Noncontributory. SOCIAL HISTORY: The patient denies smoking or drinking alcohol. PHYSICAL EXAMINATION: VITAL SIGNS: Show blood pressure of 112/52, pulse 69, respirations 18, and temperature 97. HEAD AND NECK: Showed no JVD. LUNGS: Coarse rhonchi. CARDIOVASCULAR: Shows regular S1 and S2 with no gallop or murmur. ABDOMEN: Soft. EXTREMITIES: Left hemiparesis. LABORATORY DATA: Labs show white count of 8.7, hemoglobin of 16, hematocrit of 52, and platelet count is 115,000. Sodium 142, potassium 4.0, BUN 15, creatinine 1, and glucose of 107. Troponin negative x2. ASSESSMENT AND PLAN: 1. Chest pain. The patient with multiple risk factors for coronary artery disease including hypertension, diabetes, obesity, as well as prior myocardial infarction. The patient's EKG showed old inferior wall myocardial infarction. The patient will be ruled out for myocardial infarction by serial cardiac enzymes. We will get an echocardiogram to evaluate for ejection fraction and wall motion abnormality and we will schedule the patient for nuclear stress test. In the meantime, continue treating the patient with Lipitor 20 mg daily, Plavix 75 mg daily, and metoprolol 25 mg b.i.d. The patient is allergic to aspirin. 2. Hypertension. Continue metoprolol 25 mg b.i.d. 3. History of CVA with left hemiplegia. On Plavix and Lipitor. 4. Diabetes. 5. Chronic hepatitis C. 6. Previous COVID-19 pneumonia. Thank you very much for allowing me to participate in the care of this patient. Please do not hesitate to contact me for any questions regarding my evaluation. Tu Benton M.D. DR: STEVE JOB#: [id number] CC:
[2020-05-23] MEDS: Morphine Sulfate 2mg/ml Inj(IV/IM USE ONLY) IVP PRN ×4 (01:33→17:43)
--- NOTE | 2020-05-23 03:14 | Consultation ---
DATE OF CONSULTATION: 05/22/2020 CONSULTING PHYSICIAN: Amy Benites MD HISTORY OF PRESENT ILLNESS: Patient is a 54-year-old male patient who came in for chest pain. His chief complaint, patient is very confused, disorganized. He is very mood labile, irritable. He states, "all I'm going to do is to talk about pain. I need pain medication ." Chief complaint, patient is fixated on his chest pain and asking for medication like oxycodone and morphine. as far as psychotropic medications Zoloft, trazodone, Neurontin, Abilify. He states he is doing pretty good on those medications, but apparently he has been consistently taking his medications and so he says he likes to continue, but he also says he takes Ativan as needed as well and has requested as well. MEDICAL HISTORY: Patient has medical problems including he has got chest pain, CVA, thrombocytopenia, cirrhosis, nephrolithiasis, hepatitis C, GI bleed, sepsis, hypertension, flank pain, diabetes, and neuropathy. PAIN ASSESSMENT: 01/23 pain. DEVELOPMENTAL PROBLEMS: Denies. SOCIAL HISTORY: He is living in [facility]. Financially supported by [facility] and Medicare. PSYCHIATRIC HISTORY: He has a history of paranoid schizophrenia, multiple psychiatric admissions. STRENGTHS: He is motivated to get better and he is healthy. WEAKNESSES: Impulsive, minimal support system. MENTAL STATUS EXAMINATION: This is a 54-year-old male. His appearance is disheveled. Attitude, irritable and agitated. Affect is labile. Intellect poor because he does not know current events, does know last four presidents. Mood, depressed and anxious. Motor activity, psychomotor agitation. Attention span is poor because he cannot do serial sevens or spell world backwards. Orientation x2. He is oriented to person and place, not time and situation. Speech pressured, nonsensical. Thought process, disorganized and illogical. Thought content, denies auditory hallucinations or paranoid delusions. Insight and judgment are poor. DIAGNOSES: 1. Paranoid schizophrenia with acute exacerbation. 2. There is no secondary. 3. Medical, patient has chest pain, diabetes, hypertension, flank pain, malnutrition, urinary tract infection. 4. Psychosocial stressors, financial. 5. Function impairment, severe. PLAN: For this patient, treat him with medication regimen consisting of Neurontin 300 mg three times a day. Continue Zoloft 25 mg a day, trazodone 50 mg at bedtime, Neurontin 600 three times a day, Abilify 4 mg nightly. Twenty minutes of cognitive behavioral therapy to help him identify his automatic negative thoughts, help him convert his negative thoughts to more positive thoughts to reduce depression, anxiety, mood lability. Chart reviewed. Discussed with staff. Patient seen and assessed in his room. I would like to thank Dr. Roberto Georges for this interesting consultation. Patient will continued to be followed by Psychiatry throughout the hospital course. Amy Benites M.D. DR: HERB JOB#: [id number] CC:
[2020-05-23 06:31] LABS: HEMATOCRIT 46.3 % (42.0-52.0); HEMOGLOBIN 14.6 G/DL (14.2-18.0); MEAN CORPUSCULAR VOLUME 93 FL (80-99); PLATELET COUNT 84 K/UL (150-450); RED BLOOD COUNT 4.96 M/UL (4.70-6.10); RED CELL DISTRIBUTION WIDTH 14.3 % (11.6-14.8); WHITE BLOOD COUNT 5.1 K/UL (4.8-10.8)
[2020-05-23 06:37] LABS: ANION GAP 8 mmol/L (5-15); BLOOD UREA NITROGEN 17 mg/dL (7-18); CALCIUM 7.8 MG/DL (8.5-10.1); CARBON DIOXIDE 27 MMOL/L (21-32); CHLORIDE 108 MMOL/L (98-107); CREATININE 0.9 MG/DL (0.55-1.30); POTASSIUM 4.1 MMOL/L (3.5-5.1); SODIUM 143 MMOL/L (136-145)
[2020-05-23 08:00] VITALS: BP 117/50
--- NOTE | 2020-05-23 08:00 | NUR ---
HAND-OFF: Report given to ADELE Robert.
--- NOTE | 2020-05-23 08:05 | NUR ---
NURSE NOTES: Received report from Claudia/RN. Patient is asleep, lying semi-sparrow, resting comfortably. Patient has order for 2L nasal canula, but On room air at this time, no acute distress/SOB noted. IV on right FA Patent and clean. Condom cath draining well to gravity. Bed in low position and locked, call light within reach, side rails up x3. Encouraged to use call light when needed. Will continue plan of care.
--- NOTE | 2020-05-23 08:19 | General Progress Note ---
Assessment/Plan Problem List: (1) Malnutrition ICD Codes: E46 - Unspecified protein-calorie malnutrition SNOMED: 17325876 (2) Diabetes ICD Codes: E11.9 - Type 2 diabetes mellitus without complications SNOMED: 21688161 (3) HTN (hypertension) ICD Codes: I10 - Essential (primary) hypertension SNOMED: 59748520 (4) Chest pain ICD Codes: R07.9 - Chest pain, unspecified SNOMED: 93936696 Qualifiers: Qualified Codes: R07.9 - Chest pain, unspecified (5) Psychosis ICD Codes: F29 - Unspecified psychosis not due to a substance or known physiological condition SNOMED: 40123481 (6) Cirrhosis ICD Codes: K74.60 - Unspecified cirrhosis of liver SNOMED: 70352258 (7) UTI (urinary tract infection) ICD Codes: N39.0 - Urinary tract infection, site not specified SNOMED: 95719730 Qualifiers: Qualified Codes: N39.0 - Urinary tract infection, site not specified Status: unchanged Assessment/Plan: pain bp control psyc tx pt diet eval cbc bmp am psyc trasnfer prn Subjective Constitutional: Reports: weakness Allergies: Coded Allergies: ACETAMINOPHEN (Verified Allergy, Unknown, 08/28/18) ASPIRIN (Verified Allergy, Unknown, 08/28/18) FISH DERIVED (Verified Allergy, Unknown, 10/19/19) KETOROLAC (Verified Allergy, Unknown, 08/28/18) NSAIDS (NON-STEROIDAL ANTI-INFLAMMA (Verified Allergy, Unknown, 09/09/18) TRAMADOL (Verified Allergy, Unknown, 10/19/19) All Systems: reviewed and negative except above Subjective calm in bed w sl cp Objective Last 24 Hour Vital Signs Date Time Temp Pulse Resp B/P (MAP) Pulse Ox O2 Delivery O2 Flow Rate FiO2 05/23/20 08:00 98.1 63 20 117/50 (72) 95 05/23/20 02:03 99.2 05/23/20 01:11 72 05/22/20 23:51 99.2 71 20 112/48 (69) 94 05/22/20 21:24 80 155/73 05/22/20 20:00 73 05/22/20 20:00 99.4 71 18 155/72 (99) 97 05/22/20 16:00 97.5 68 20 103/50 (67) 96 7/7/20 12:00 96.9 69 20 112/52 (72) 95 05/22/20 09:00 Nasal Cannula 2.0 05/22/20 08:46 69 111/44 Intake and Output 05/22/20 05/23/20 19:00 07:00 Intake Total 360 ml Output Total 100 ml Balance 360 ml -100 ml Intake Oral 360 ml Output Urine Total 100 ml # Voids 2 2 Laboratory Tests 05/23/20 05:35: White Blood Count 5.1, Red Blood Count 4.96, Hemoglobin 14.6, Hematocrit 46.3, Mean Corpuscular Volume 93, Mean Corpuscular Hemoglobin 29.3, Mean Corpuscular Hemoglobin Concent 31.4L, Red Cell Distribution Width 14.3, Platelet Count 84L, Mean Platelet Volume 9.2, Neutrophils (%) (Auto) , Lymphocytes (%) (Auto) , Monocytes (%) (Auto) , Eosinophils (%) (Auto) , Basophils (%) (Auto) , Neutrophils % (Manual) [Pending], Lymphocytes % (Manual) [Pending], Platelet Estimate [Pending], Platelet Morphology [Pending], Sodium Level 143, Potassium Level 4.1, Chloride Level 108H, Carbon Dioxide Level 27, Anion Gap 8, Blood Urea Nitrogen 17, Creatinine 0.9, Estimat Glomerular Filtration Rate > 60, Glucose Level 133H, Calcium Level 7.8L, Troponin I 0.005 Height (Feet): 5 Height (Inches): 10.00 Weight (Pounds): 260 General Appearance: lethargic EENT: normal ENT inspection Neck: normal alignment Cardiovascular: normal peripheral pulses, normal rate, regular rhythm Respiratory/Chest: chest wall non-tender, lungs clear, normal breath sounds Abdomen: normal bowel sounds, non tender, soft Extremities: normal inspection Edema: no edema noted Arm (L), no edema noted Arm (R), no edema noted Leg (L), no edema noted Leg (R), no edema noted Pedal (L), no edema noted Pedal (R), no edema noted Generalized Neurologic: motor weakness Skin: normal pigmentation, warm/dry Roberto Georges DO May 23, 2020 08:19
[2020-05-23] MEDS: Sertraline 50mg tab ORAL SCH (08:26)
[2020-05-23] MEDS: Docusate 100mg cap ORAL SCH (08:27)
[2020-05-23] MEDS: Ascorbic Acid 500mg tab ORAL SCH (08:27)
--- NOTE | 2020-05-23 10:07 | NUR ---
CARDIOLOGY The customer care team coach on panel today - Dr. Phipps- just informed me he would come at 1pm to do Lexiscan stress test.
--- NOTE | 2020-05-23 10:45 | Progress Note ---
DATE: 05/23/2020 SUBJECTIVE: This is a 54-year-old male with chest pain, coronary artery disease, hypertension, chronic pain, and chest pain causing him to have cognition below his baseline. MENTAL STATUS EXAMINATION: This is a 54-year-old male. His appearance is disheveled. Attitude, irritable and agitated. Affect, guarded and restricted. Intellect, poor. Mood, depressed and anxious. Motor activity, psychomotor agitation. Attention span is poor. Orientation x2. Speech is low volume, slurred. Thought process, disorganized and illogical. Insight and judgment is poor. DIAGNOSIS: Major depressive disorder, mild, recurrent with psychotic features, rule out paranoid schizophrenia. PLAN: Plan for this patient, treat him with a medication regimen consisting of Abilify at a dose of 4 mg nightly, trazodone 50 mg nightly, and Neurontin 600 mg three times a day. Twenty minutes of cognitive behavioral therapy to help him identify his automatic negative thoughts and help him convert negative thoughts to more positive thoughts. Chart reviewed. Discussed with staff. Seen and assessed in his room. Amy Benites M.D. DR: AMAN JOB#: [id number] CC:
--- NOTE | 2020-05-23 10:53 | Pulmonology Progress Note ---
Subjective Interval Events: None new Constitutional: Reports: no symptoms HEENT: Repors: no symptoms Respiratory: Reports: no symptoms Cardiovascular: Reports: no symptoms Gastrointestinal/Abdominal: Reports: no symptoms Allergies: Coded Allergies: ACETAMINOPHEN (Verified Allergy, Unknown, 08/28/18) ASPIRIN (Verified Allergy, Unknown, 08/28/18) FISH DERIVED (Verified Allergy, Unknown, 10/19/19) KETOROLAC (Verified Allergy, Unknown, 08/28/18) NSAIDS (NON-STEROIDAL ANTI-INFLAMMA (Verified Allergy, Unknown, 09/09/18) TRAMADOL (Verified Allergy, Unknown, 10/19/19) All Systems: reviewed and negative except above Objective Last 24 Hour Vital Signs Date Time Temp Pulse Resp B/P (MAP) Pulse Ox O2 Delivery O2 Flow Rate FiO2 05/23/20 09:00 Nasal Cannula 2.0 05/23/20 08:31 63 117/50 05/23/20 08:00 98.1 63 20 117/50 (72) 95 05/23/20 02:03 99.2 05/23/20 01:11 72 05/22/20 23:51 99.2 71 20 112/48 (69) 94 05/22/20 21:24 80 155/73 05/22/20 21:00 Nasal Cannula 2.0 05/22/20 20:00 73 05/22/20 20:00 99.4 71 18 155/72 (99) 97 05/22/20 16:00 97.5 68 20 103/50 (67) 96 05/22/20 12:00 96.9 69 20 112/52 (72) 95 Intake and Output 05/22/20 05/23/20 19:00 07:00 Intake Total 360 ml Output Total 100 ml Balance 360 ml -100 ml Intake Oral 360 ml Output Urine Total 100 ml # Voids 2 2 General Appearance: no acute distress HEENT: normocephalic Respiratory: chest wall non-tender, lungs clear Cardiovascular: normal peripheral pulses, normal rate Abdomen: normal bowel sounds Microbiology Date/Time Source Procedure Growth Status 05/21/20 21:00 Nasal Nares MRSA Culture - Final Staphylococcus Aureus - Mrsa Complete 05/21/20 21:00 Rectum Received Laboratory Tests 05/23/20 05:35: White Blood Count 5.1, Red Blood Count 4.96, Hemoglobin 14.6, Hematocrit 46.3, Mean Corpuscular Volume 93, Mean Corpuscular Hemoglobin 29.3, Mean Corpuscular Hemoglobin Concent 31.4L, Red Cell Distribution Width 14.3, Platelet Count 84L, Mean Platelet Volume 9.2, Neutrophils (%) (Auto) , Lymphocytes (%) (Auto) , Monocytes (%) (Auto) , Eosinophils (%) (Auto) , Basophils (%) (Auto) , Neutrophils % (Manual) [Pending], Lymphocytes % (Manual) [Pending], Platelet Estimate [Pending], Platelet Morphology [Pending], Sodium Level 143, Potassium Level 4.1, Chloride Level 108H, Carbon Dioxide Level 27, Anion Gap 8, Blood Urea Nitrogen 17, Creatinine 0.9, Estimat Glomerular Filtration Rate > 60, Glucose Level 133H, Calcium Level 7.8L, Troponin I 0.005 Current Medications Medications (Trade) Dose Ordered Sig/Hugo Route PRN Reason Start Time Stop Time Status Last Admin Dose Admin Acetaminophen/ Hydrocodone Bitart ([place] 5/325) 1 tab Q6H PRN ORAL For Pain 05/21/20 23:00 05/28/20 22:59 05/22/20 06:47 Aripiprazole (Abilify) 4 mg BEDTIME ORAL 05/22/20 21:00 07/06/20 20:59 05/22/20 21:24 Ascorbic Acid (Vitamin C) 500 mg DAILY ORAL 05/22/20 09:00 06/21/20 08:59 05/23/20 08:27 Atorvastatin Calcium (Lipitor) 20 mg BEDTIME ORAL 05/22/20 21:00 08/20/20 20:59 05/22/20 21:24 Ceftriaxone Sodium 1 gm/ Dextrose 55 ml @ 110 mls/hr Q24H IVPB 05/23/20 11:00 05/30/20 10:59 Clopidogrel Bisulfate (Plavix) 75 mg DAILY ORAL 05/22/20 09:00 06/21/20 08:59 05/23/20 08:27 Docusate Sodium (Colace) 100 mg DAILY ORAL 05/22/20 09:00 06/21/20 08:59 05/23/20 08:27 Famotidine (Pepcid) 20 mg DAILY ORAL 05/22/20 09:00 08/20/20 08:59 05/23/20 08:26 Finasteride (Proscar) 5 mg DAILY ORAL 05/22/20 09:00 08/20/20 08:59 05/23/20 08:26 Gabapentin (Neurontin) 600 mg THREE TIMES A DAY ORAL 05/22/20 09:00 06/21/20 08:59 05/23/20 08:26 Metoprolol Tartrate (Lopressor) 25 mg EVERY 12 HOURS ORAL 05/22/20 09:00 08/20/20 08:59 05/22/20 21:24 Morphine Sulfate (Morphine Sulfate) 2 mg Q4H PRN IVP For Pain 05/22/20 21:45 05/29/20 21:44 05/23/20 08:28 Regadenoson (Lexiscan) 0.4 mg ONCE PRN IV CARDIOLOGY 05/22/20 16:44 05/24/20 23:59 Sertraline HCl (Zoloft) 25 mg DAILY ORAL 05/22/20 09:00 06/21/20 08:59 05/23/20 08:26 Trazodone HCl (Desyrel) 50 mg BEDTIME ORAL 05/22/20 21:00 06/21/20 20:59 05/22/20 21:24 Assessment/Plan Assessment/Plan IMPRESSION: 1. Atypical chest pain. 2. History of CAD. 3. Hypertension. 4. Previous COVID-19 pneumonia. 5. Depression. 6. Chronic hep C. DISCUSSION: Noted Cardiology evaluation. Saturating well on 2L/min O2 Will follow Angelina Fraire Omar Syed MD May 23, 2020 10:53
--- NOTE | 2020-05-23 11:30 | NUR ---
CASE MANAGEMENT:REVIEW 05/23/20 SI: CHEST PAIN. CAD. DEPRESSION 98.1 63 20 117/50 95% ON 2L/NC PLT-84 GLUCOSE+133 CA-7.8 IS: IV LEXISCAN X1 IV ROCEPHIN Q24 IV MORPHINE Q4HRS PRN ABILIFY PO QHS....TRAZODONE PO QHS....ZOLOFT PO QD PLAVIX PO QD NEURONTIN PO TID LOPRESSOR PO Q12 : TELEMETRY STATUS DCP: PATIENT IS FROM [facility]: STRESS TEST COVID 19 SWAB URINE CX PT EVAL
--- NOTE | 2020-05-23 11:37 | NUR ---
DISCHARGE PLANNING DISCHARGE PLANNING ORDER NOTED TO REFER PATIENT TO [facility] CURRENTLY PATIENT IS NOT MEDICALLY CLEARED STRESS TEST ~ PENDING FOR TODAY COVID 19 SWAB ~ RESULTS PENDING URINE CX ~ IN PROCESS PT EVAL ~ PENDING Addendum: 05/23/20 at 1147 by RADHA CORNEJO LVN LVN FAXED CLINICALS TO [facility] T: [phone] F: [phone] Addendum: 05/23/20 at 1238 by RADHA CORNEJO LVN LVN RECEIVED CALL FROM ARGENIS AT [facility] PER ARGENIS PATIENT NEEDS TO BE WEANED OFF OXYGEN, COVID NEEDS TO BE RESULTED AND THERE NEEDS TO BE DOCUMENTATION OF MEDICAL CLEARANCE
[2020-05-23] MEDS: cefTRIAXone 1 GM in D5W 55 ML IVPB SCH (11:52)
[2020-05-23 12:00] VITALS: BP 107/44
--- NOTE | 2020-05-23 12:10 | Diagnostic Imaging Report ---
Indication: Reason For Exam: SWELL Technique: Grayscale and duplex images of the bilateral lower extremity veins Comparison: None Findings: Bilaterally, grayscale and duplex images demonstrate no evidence of intraluminal thrombus. Normal phasic Doppler waveforms, demonstrating normal augmentation response and no evidence of valvular insufficiency. Greater saphenous vein(s) and tibial veins are patent. Normal compressibility. Impression: Negative for evidence of lower extremity deep venous thrombosis bilaterally
--- NOTE | 2020-05-23 12:18 | CDS Physician Query ---
Clarification is required for compliance, coding accuracy, and to reflect severity of illness for this patient Dear Dr. 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 Cardiology consult: Chest pain. The patient with multiple risk factors for coronary artery disease including hypertension, diabetes, obesity, as well as prior myocardial infarction Troponin 05/21: 0.001 ng/ml Please document the suspected etiology of Chest Pain: [] Acute Coronary Syndrome [] Pericarditis [] Anxiety [] Cancer [] Pneumonia [] Costochondritis [] GERD/Esophagitis [] Other: [] Unable to determine Present on Admission: [] Yes [] No [] Clinically Undetermined Physician signature Date Please also document in your Progress Notes and/or Discharge Summary and indicate if the condition was present on admission. MTDD
--- NOTE | 2020-05-23 12:19 | Cardiac Electrophysiology PN ---
Assessment/Plan Assessment/Plan 1. Chest pain. The patient with multiple risk factors for coronary artery disease including hypertension, diabetes, obesity, as well as prior myocardial infarction. The patient's EKG showed old inferior wall myocardial infarction. Was ruled out for myocardial infarction by serial cardiac enzymes. Echocardiogram EF 55%. Awaiting result of nuclear stress test today. In the meantime, continue Lipitor 20 mg daily, Plavix 75 mg daily, and metoprolol 25 mg b.i.d. The patient is allergic to aspirin. 2. Hypertension. Continue metoprolol 25 mg b.i.d. 3. History of CVA with left hemiplegia. On Plavix and Lipitor. 4. Diabetes. 5. Chronic hepatitis C. 6. Previous COVID-19 pneumonia. DW RN Subjective Subjective Feeling better. No CP or SOB. Objective Last 24 Hour Vital Signs Date Time Temp Pulse Resp B/P (MAP) Pulse Ox O2 Delivery O2 Flow Rate FiO2 05/23/20 09:00 Nasal Cannula 2.0 05/23/20 08:31 63 117/50 05/23/20 08:00 98.1 63 20 117/50 (72) 95 05/23/20 02:03 99.2 05/23/20 01:11 72 05/22/20 23:51 99.2 71 20 112/48 (69) 94 05/22/20 21:24 80 155/73 05/22/20 21:00 Nasal Cannula 2.0 05/22/20 20:00 73 05/22/20 20:00 99.4 71 18 155/72 (99) 97 05/22/20 16:00 97.5 68 20 103/50 (67) 96 Intake and Output 05/22/20 05/23/20 19:00 07:00 Intake Total 360 ml Output Total 100 ml Balance 360 ml -100 ml Intake Oral 360 ml Output Urine Total 100 ml # Voids 2 2 Laboratory Tests Test 05/23/20 05:35 White Blood Count 5.1 K/UL (4.8-10.8) Red Blood Count 4.96 M/UL (4.70-6.10) Hemoglobin 14.6 G/DL (14.2-18.0) Hematocrit 46.3 % (42.0-52.0) Mean Corpuscular Volume 93 FL (80-99) Mean Corpuscular Hemoglobin 29.3 PG (27.0-31.0) Mean Corpuscular Hemoglobin Concent 31.4 G/DL (32.0-36.0) L Red Cell Distribution Width 14.3 % (11.6-14.8) Platelet Count 84 K/UL (150-450) L Mean Platelet Volume 9.2 FL (6.5-10.1) Neutrophils (%) (Auto) % (45.0-75.0) Lymphocytes (%) (Auto) % (20.0-45.0) Monocytes (%) (Auto) % (1.0-10.0) Eosinophils (%) (Auto) % (0.0-3.0) Basophils (%) (Auto) % (0.0-2.0) Differential Total Cells Counted 100 Neutrophils % (Manual) 69 % (45-75) Lymphocytes % (Manual) 24 % (20-45) Monocytes % (Manual) 3 % (1-10) Eosinophils % (Manual) 4 % (0-3) H Basophils % (Manual) 0 % (0-2) Band Neutrophils 0 % (0-8) Platelet Estimate Decreased L Platelet Morphology Normal Hypochromasia 1+ Anisocytosis 1+ Sodium Level 143 MMOL/L (136-145) Potassium Level 4.1 MMOL/L (3.5-5.1) Chloride Level 108 MMOL/L (98-107) H Carbon Dioxide Level 27 MMOL/L (21-32) Anion Gap 8 mmol/L (5-15) Blood Urea Nitrogen 17 mg/dL (7-18) Creatinine 0.9 MG/DL (0.55-1.30) Estimat Glomerular Filtration Rate > 60 mL/min (>60) Glucose Level 133 MG/DL (74-106) H Calcium Level 7.8 MG/DL (8.5-10.1) L Troponin I 0.005 ng/mL (0.000-0.056) Microbiology Date/Time Source Procedure Growth Status 05/21/20 21:00 Nasal Nares MRSA Culture - Final Staphylococcus Aureus - Mrsa Complete 05/21/20 21:00 Rectum Received Objective HEAD AND NECK: No JVD. LUNGS: Coarse rhonchi. CARDIOVASCULAR: Regular S1 and S2 with no gallop or murmur. ABDOMEN: Soft. EXTREMITIES: Left hemiparesis. Tu Benton MD May 23, 2020 12:19
--- NOTE | 2020-05-23 13:30 | Progress Note ---
DATE: 05/23/2020 SUBJECTIVE: This is a 54-year-old male patient. He has history of chest pain, but he also has other medical complications such as COPD, , obesity, neuropathy, renal insufficiency, malnutrition, GERD, and hypertension causing decline in cognition below his baseline. DIAGNOSIS: Paranoid schizophrenia, acute exacerbation. PLAN: Treat him with a psychotropic medication regimen consisting of Zoloft 25 mg daily, trazodone 50 mg nightly, Neurontin 600 mg three times a day, and Abilify 4 mg nightly. A 20 minutes of cognitive behavioral therapy to help him identify his automatic negative thoughts and help him convert negative thoughts to more positive thoughts to reduce depression, anxiety, and mood lability. Chart reviewed. Discussed with staff. Seen and assessed at bedside. Amy Benites M.D. DR: SEVERINO JOB#: [id number] CC:
--- NOTE | 2020-05-23 13:34 | NUR ---
P.T Note: P.T evaluation completed. Patient at baseline is dependent with transfers OOB and is non-ambulatory. Patient is currently at baseline level of function, skilled inpatient PT intervention is not warranted. Patient discharged from PT.
--- NOTE | 2020-05-23 15:00 | Consultation ---
DATE OF CONSULTATION: 05/23/2020 INFECTIOUS DISEASES CONSULTATION CONSULTING PHYSICIAN: Alex Mccord MD. REFERRING PHYSICIAN: Roberto Georges DO. REASON FOR CONSULTATION: Pneumonia and urinary tract infection. HISTORY OF PRESENTING ILLNESS: This is a 54-year-old gentleman who came in with chest pain and shortness of breath. He was found to have a urinary tract infection and a possible pneumonia and Infectious Diseases consultation has been obtained for antibiotics. PAST MEDICAL HISTORY: 1. History of diabetes. 2. Hypertension. 3. CVA. 4. Hepatitis C. 5. Cirrhosis. 6. Psychiatric history. SOCIAL HISTORY: Unknown. FAMILY HISTORY: Unknown. REVIEW OF SYSTEMS: Unable to obtain currently. MEDICATIONS: As an inpatient, he is on morphine, Abilify, atorvastatin, trazodone, Lexiscan, ascorbic acid, Plavix, famotidine, Proscar, gabapentin, metoprolol, sertraline, docusate, [place]. ALLERGIES: 1. Acetaminophen. 2. Aspirin. 3. Fish. 4. Ketoralac. 5. NSAIDs. 6. Tramadol. PHYSICAL EXAMINATION: VITAL SIGNS: Temperature of 98.1, T-max of 99.8, pulse of 63, respiratory rate 20, blood pressure 117/50, O2 saturation of 95%. Examination deferred due to possibility of COVID-19. LABORATORY AND DIAGNOSTIC DATA: White count 5.1, hemoglobin 14.6, hematocrit 46.3, MCV 93, platelet count of 84. Sodium 143, potassium 4.1, chloride 108, bicarb 27, BUN 17, creatinine 0.9, glucose 133, calcium 7.8. Total bilirubin 0.6, AST 132, ALT 170, alkaline phosphatase 91. CK of 89, troponin 0.005. C-reactive protein 1.8. Beta-natriuretic peptide 35. Total protein 8.3, albumin 3.2. Lipase of 201. UA showing 5 to 10 white cells. Chest x-ray is showing cardiomegaly, left perihilar atelectasis, suspect left-sided pleural effusion. ASSESSMENT: This is a 54-year-old gentleman with history of diabetes, hypertension, hepatitis C, cirrhosis who comes in with shortness of breath and chest pain and is found to have. 1. Urinary tract infection. 2. We would like to rule out pneumonia. COVID-19 pneumonia is a possibility. 3. Hepatitis C. 4. Cirrhosis. 5. Diabetes. 6. Hypertension. PLAN: 1. We will order COVID-19 testing. 2. We would recommend isolation. 3. We will start the patient on ceftriaxone. 4. We will order urine cultures. 5. We will follow up cultures and adjust antibiotics accordingly. I would like to thank, Dr. Roberto Georges, for this consultation. Alex Mccord M.D. DR: DAMARIS JOB#: [id number] CC: Roberto Georges D.O.
[2020-05-23 16:00] VITALS: BP 115/50
--- NOTE | 2020-05-23 16:13 | Diagnostic Imaging Report ---
Indications: Chest pain Technique: Single day single isotope protocol utilized. Initially, resting images obtained using IV administration 11 millicuries 99M technetium Myoview. Subsequently, patient underwent lexiscan stress testing. See cardiology report for details. During Lexiscan infusion, IV administration 32.4 mCi 99 M technetium Myoview. SPECT and planar images obtained. SPECT images gated to 8 phases of the cardiac cycle were also obtained, and reformatted into cine images for evaluation of ejection fraction. Comparison: 09/13/2018 Findings: Per cardiology report, patient experienced no chest pain during infusion. Per cardiology report, resting EKG demonstrates normal sinus rhythm with left axis deviation. No ST changes during infusion noted. Images are somewhat limited, as patient was unable to raise his arms. There is suggestion of decreased perfusion of the cardiac apex on the post stress images, which is not evident on the resting images. Overall decreased perfusion in the inferior wall on both image sets probably relates to attenuation artifact related to patient body habitus. Normal left ventricular chamber size.. Calculated post stress ejection fraction 63%. No focal wall motion abnormality. Somewhat similar findings are noted on the prior exam. Impression: Nonischemic clinical response to pharmacologic stress, per cardiology report Nonischemic electrocardiographic response to pharmacologic stress, per cardiology report Apparent small reversible post stress perfusion defect at the apex. May be artifactual but could also represent a small area of ischemia. Similar findings equivocally evident previously Calculated post stress ejection fraction 63%
--- NOTE | 2020-05-23 19:53 | NUR ---
NURSE NOTES: Received report from ADELE Robert. Patient is awake lying semi-sparrow's; resting comfortably. No signs of acute distress noted; complains of pain. AOx4; able to make needs known. Patient able to help staff to be repositioned. Checked IV site; patent and flushed. No erythema, bleeding, or infiltration noted. Bed at lowest position, brakes on, siderails up x3. Call light within reach. Will continue to monitor.
[2020-05-23 20:00] VITALS: BP 116/48
[2020-05-23] MEDS: TraZODone 50mg tab ORAL SCH (21:28)
[2020-05-23] MEDS: ARIPiprazole 2mg tab ORAL SCH (21:28)
[2020-05-23] MEDS: Atorvastatin 20mg tab ORAL SCH (21:28)
[2020-05-24] VITALS: BP 116/52
[2020-05-24 04:00] VITALS: BP 132/56
[2020-05-24 07:06] LABS: ANION GAP 8 mmol/L (5-15); BLOOD UREA NITROGEN 15 mg/dL (7-18); CARBON DIOXIDE 27 MMOL/L (21-32); CHLORIDE 110 MMOL/L (98-107); CREATININE 0.9 MG/DL (0.55-1.30); POTASSIUM 3.7 MMOL/L (3.5-5.1); SODIUM 144 MMOL/L (136-145)
[2020-05-24 07:13] LABS: HEMATOCRIT 45.1 % (42.0-52.0); HEMOGLOBIN 14.1 G/DL (14.2-18.0); MEAN CORPUSCULAR VOLUME 93 FL (80-99); PLATELET COUNT 79 K/UL (150-450); RED BLOOD COUNT 4.84 M/UL (4.70-6.10); RED CELL DISTRIBUTION WIDTH 14.4 % (11.6-14.8); WHITE BLOOD COUNT 4.9 K/UL (4.8-10.8)
--- NOTE | 2020-05-24 07:50 | NUR ---
HAND-OFF: Report given to ADELE Metcalf. Patient is awake lying semi-sparrow's; resting comfortably. In stable condition.
--- NOTE | 2020-05-24 07:58 | NUR ---
NURSE NOTES: Received pt from ADELE Bhatt, Pt is awake and alert, pt is in RA, no SOB or acute respiratory distress noted. pt is on continues heart monitoring, pt has intact iv access RFA 20g SL, all needs attended, bed is locked and is in the lowest position, call light within easy reach, will continue to monitor.
[2020-05-24 08:00] VITALS: BP 107/34
[2020-05-24] MEDS: Ascorbic Acid 500mg tab ORAL SCH (08:39)
[2020-05-24] MEDS: Docusate 100mg cap ORAL SCH (08:39)
[2020-05-24] MEDS: Sertraline 50mg tab ORAL SCH (08:40)
[2020-05-24] MEDS: HYDROcodone/Acetamin 5/325 tab ORAL PRN (08:40)
[2020-05-24] MEDS: cefTRIAXone 1 GM in D5W 55 ML IVPB SCH (10:01)
--- NOTE | 2020-05-24 10:28 | Infectious Diseases Prog Note ---
Assessment/Plan Assessment/Plan A: 1. Urinary tract infection. 2. Left pleural effusion. COVID19 test: negative 3. Hepatitis C. 4. Cirrhosis. 5. Diabetes. 6. Hypertension. PLAN: 1. Clear for discharge to psychiatry facility 2. Discontinue isolation. 3. Change ceftriaxone to PO Levaquin 4. Continue antibiotic X 3 days 5. Case was D/W RN & rn case manager Subjective ROS Limited/Unobtainable: No Constitutional: Reports: no symptoms Respiratory: Reports: no symptoms Cardiovascular: Reports: no symptoms Gastrointestinal/Abdominal: Reports: no symptoms Genitourinary: Reports: no symptoms Allergies: Coded Allergies: ACETAMINOPHEN (Verified Allergy, Unknown, 08/28/18) ASPIRIN (Verified Allergy, Unknown, 08/28/18) FISH DERIVED (Verified Allergy, Unknown, 10/19/19) KETOROLAC (Verified Allergy, Unknown, 08/28/18) NSAIDS (NON-STEROIDAL ANTI-INFLAMMA (Verified Allergy, Unknown, 09/09/18) TRAMADOL (Verified Allergy, Unknown, 10/19/19) Objective Last 24 Hour Vital Signs Date Time Temp Pulse Resp B/P (MAP) Pulse Ox O2 Delivery O2 Flow Rate FiO2 05/24/20 08:41 60 107/34 05/24/20 08:00 97.9 60 20 107/34 (58) 98 05/24/20 07:43 59 05/24/20 04:00 62 05/24/20 04:00 98.3 66 17 132/56 (81) 95 05/24/20 00:00 63 05/24/20 00:00 98.1 69 18 116/52 (73) 96 05/23/20 21:27 66 116/48 05/23/20 21:00 Room Air 05/23/20 20:00 70 05/23/20 20:00 98.1 66 17 116/48 (70) 95 05/23/20 16:00 97.9 79 20 115/50 (71) 97 05/23/20 12:00 64 05/23/20 12:00 97.7 77 18 107/44 (65) 96 Height (Feet): 5 Height (Inches): 10.00 Weight (Pounds): 198 General Appearance: no acute distress HEENT: mucous membranes moist Respiratory/Chest: no respiratory distress Cardiovascular: normal rate Abdomen: soft, non tender Extremities: no edema Neurologic/Psychiatric: alert, oriented x 3, responsive Microbiology Date/Time Source Procedure Growth Status 05/23/20 10:50 Nasopharynx Coronavirus COVID-19 PCR (SCOTTIE) - Final Complete 05/21/20 21:00 Nasal Nares MRSA Culture - Final Staphylococcus Aureus - Mrsa Complete 05/21/20 21:00 Rectum - Final NO CARBAPENEM-RESISTANT ENTEROBACTERI... Complete 05/21/20 21:00 Rectum VRE Culture - Final NO VANCOMYCIN RESISTANT ENTEROCOCCUS ... Complete Laboratory Tests Test 05/24/20 05:46 White Blood Count 4.9 K/UL (4.8-10.8) Red Blood Count 4.84 M/UL (4.70-6.10) Hemoglobin 14.1 G/DL (14.2-18.0) L Hematocrit 45.1 % (42.0-52.0) Mean Corpuscular Volume 93 FL (80-99) Mean Corpuscular Hemoglobin 29.1 PG (27.0-31.0) Mean Corpuscular Hemoglobin Concent 31.2 G/DL (32.0-36.0) L Red Cell Distribution Width 14.4 % (11.6-14.8) Platelet Count 79 K/UL (150-450) L Mean Platelet Volume 10.2 FL (6.5-10.1) H Neutrophils (%) (Auto) % (45.0-75.0) Lymphocytes (%) (Auto) % (20.0-45.0) Monocytes (%) (Auto) % (1.0-10.0) Eosinophils (%) (Auto) % (0.0-3.0) Basophils (%) (Auto) % (0.0-2.0) Neutrophils % (Manual) Pending Lymphocytes % (Manual) Pending Platelet Estimate Pending Platelet Morphology Pending Sodium Level 144 MMOL/L (136-145) Potassium Level 3.7 MMOL/L (3.5-5.1) Chloride Level 110 MMOL/L (98-107) H Carbon Dioxide Level 27 MMOL/L (21-32) Anion Gap 8 mmol/L (5-15) Blood Urea Nitrogen 15 mg/dL (7-18) Creatinine 0.9 MG/DL (0.55-1.30) Estimat Glomerular Filtration Rate > 60 mL/min (>60) Glucose Level 149 MG/DL (74-106) H Calcium Level 8.0 MG/DL (8.5-10.1) L Troponin I 0.002 ng/mL (0.000-0.056) Current Medications Medications (Trade) Dose Ordered Sig/Hugo Route PRN Reason Start Time Stop Time Status Last Admin Dose Admin Acetaminophen/ Hydrocodone Bitart ([place] 5/325) 1 tab Q6H PRN ORAL For Pain 05/21/20 23:00 05/28/20 22:59 05/24/20 08:40 Aripiprazole (Abilify) 4 mg BEDTIME ORAL 05/22/20 21:00 07/06/20 20:59 05/23/20 21:28 Ascorbic Acid (Vitamin C) 500 mg DAILY ORAL 05/22/20 09:00 06/21/20 08:59 05/24/20 08:39 Atorvastatin Calcium (Lipitor) 20 mg BEDTIME ORAL 05/22/20 21:00 08/20/20 20:59 05/23/20 21:28 Ceftriaxone Sodium 1 gm/ Dextrose 55 ml @ 110 mls/hr Q24H IVPB 05/23/20 11:00 05/30/20 10:59 05/24/20 10:01 Clopidogrel Bisulfate (Plavix) 75 mg DAILY ORAL 05/22/20 09:00 06/21/20 08:59 05/24/20 08:39 Docusate Sodium (Colace) 100 mg DAILY ORAL 05/22/20 09:00 06/21/20 08:59 05/24/20 08:39 Famotidine (Pepcid) 20 mg DAILY ORAL 05/22/20 09:00 08/20/20 08:59 05/24/20 08:40 Finasteride (Proscar) 5 mg DAILY ORAL 05/22/20 09:00 08/20/20 08:59 05/24/20 08:40 Gabapentin (Neurontin) 600 mg THREE TIMES A DAY ORAL 05/22/20 09:00 06/21/20 08:59 05/24/20 08:40 Metoprolol Tartrate (Lopressor) 25 mg EVERY 12 HOURS ORAL 05/22/20 09:00 08/20/20 08:59 05/23/20 21:27 Morphine Sulfate (Morphine Sulfate) 2 mg Q4H PRN IVP For Pain 05/22/20 21:45 05/29/20 21:44 05/23/20 17:43 Regadenoson (Lexiscan) 0.4 mg ONCE PRN IV CARDIOLOGY 05/22/20 16:44 05/24/20 23:59 05/23/20 13:43 Sertraline HCl (Zoloft) 25 mg DAILY ORAL 05/22/20 09:00 06/21/20 08:59 05/24/20 08:40 Trazodone HCl (Desyrel) 50 mg BEDTIME ORAL 05/22/20 21:00 06/21/20 20:59 05/23/20 21:28 Christian Ventura MD May 24, 2020 10:28
--- NOTE | 2020-05-24 10:45 | Progress Note ---
DATE: 05/24/2020 SUBJECTIVE: This is a 54-year-old male patient. The patient came to the hospital very depressed, confused, extremely mood labile, but he is in the hospital secondary to neuropathy, flank pain, chest pain, diabetes, malnutrition, and hypertension. He is also status post CVA and thrombocytopenia. His medical illness is causing him to have decline in cognition below his baseline. MENTAL STATUS EXAMINATION: This is a 54-year-old male. Appearance is disheveled. Attitude, irritable and agitated. Affect, guarded and restricted. Intellect, poor. Mood, depressed and anxious. Motor activity, psychomotor agitation. Attention span is poor. Orientation x2. Speech is low volume and slurred. Thought process, disorganized and illogical. Insight and judgment is poor. DIAGNOSIS: Paranoid schizophrenia, acute exacerbation. PLAN: Treat him with a medication regimen consisting of Abilify 5 mg daily, Neurontin mg three times a day. Also, I am going to treat him with a medication regimen consisting of trazodone 50 mg nightly, Zoloft 25 mg daily, and Neurontin 600 mg three times a day. Twenty minutes of cognitive behavioral therapy will help him identify his automatic negative thoughts and help him convert his negative thoughts to more positive thoughts to reduce depression, anxiety, and mood lability. Chart reviewed. Discussed with staff. Seen and assessed in his room. Amy Benites M.D. DR: AMAN JOB#: [id number] CC:
--- NOTE | 2020-05-24 10:58 | Pulmonology Progress Note ---
Subjective ROS Limited/Unobtainable: No Interval Events: None new Constitutional: Reports: no symptoms HEENT: Repors: no symptoms Respiratory: Reports: no symptoms Cardiovascular: Reports: no symptoms Gastrointestinal/Abdominal: Reports: no symptoms Allergies: Coded Allergies: ACETAMINOPHEN (Verified Allergy, Unknown, 08/28/18) ASPIRIN (Verified Allergy, Unknown, 08/28/18) FISH DERIVED (Verified Allergy, Unknown, 10/19/19) KETOROLAC (Verified Allergy, Unknown, 08/28/18) NSAIDS (NON-STEROIDAL ANTI-INFLAMMA (Verified Allergy, Unknown, 09/09/18) TRAMADOL (Verified Allergy, Unknown, 10/19/19) All Systems: reviewed and negative except above Objective Last 24 Hour Vital Signs Date Time Temp Pulse Resp B/P (MAP) Pulse Ox O2 Delivery O2 Flow Rate FiO2 05/24/20 09:00 Room Air 05/24/20 08:41 60 107/34 05/24/20 08:00 97.9 60 20 107/34 (58) 98 05/24/20 07:43 59 05/24/20 04:00 62 05/24/20 04:00 98.3 66 17 132/56 (81) 95 05/24/20 00:00 63 05/24/20 00:00 98.1 69 18 116/52 (73) 96 05/23/20 21:27 66 116/48 05/23/20 21:00 Room Air 05/23/20 20:00 70 05/23/20 20:00 98.1 66 17 116/48 (70) 95 05/23/20 16:00 97.9 79 20 115/50 (71) 97 05/23/20 12:00 64 05/23/20 12:00 97.7 77 18 107/44 (65) 96 Intake and Output 05/23/20 05/24/20 19:00 07:00 Intake Total 120 ml 240 ml Output Total 300 ml Balance 120 ml -60 ml Intake Oral 120 ml 240 ml Output Urine Total 300 ml # Voids 1 2 General Appearance: no acute distress HEENT: normocephalic Respiratory: chest wall non-tender, lungs clear Cardiovascular: normal peripheral pulses, normal rate Abdomen: normal bowel sounds Microbiology Date/Time Source Procedure Growth Status 05/23/20 10:50 Nasopharynx Coronavirus COVID-19 PCR ([facility]) - Final Complete 05/21/20 21:00 Nasal Nares MRSA Culture - Final Staphylococcus Aureus - Mrsa Complete 05/21/20 21:00 Rectum - Final NO CARBAPENEM-RESISTANT ENTEROBACTERI... Complete 05/21/20 21:00 Rectum VRE Culture - Final NO VANCOMYCIN RESISTANT ENTEROCOCCUS ... Complete Laboratory Tests 05/24/20 05:46: White Blood Count 4.9, Red Blood Count 4.84, Hemoglobin 14.1L, Hematocrit 45.1, Mean Corpuscular Volume 93, Mean Corpuscular Hemoglobin 29.1, Mean Corpuscular Hemoglobin Concent 31.2L, Red Cell Distribution Width 14.4, Platelet Count 79L, Mean Platelet Volume 10.2H, Neutrophils (%) (Auto) , Lymphocytes (%) (Auto) , Monocytes (%) (Auto) , Eosinophils (%) (Auto) , Basophils (%) (Auto) , Neutrophils % (Manual) [Pending], Lymphocytes % (Manual) [Pending], Platelet Estimate [Pending], Platelet Morphology [Pending], Sodium Level 144, Potassium Level 3.7, Chloride Level 110H, Carbon Dioxide Level 27, Anion Gap 8, Blood Urea Nitrogen 15, Creatinine 0.9, Estimat Glomerular Filtration Rate > 60, Glucose Level 149H, Calcium Level 8.0L, Troponin I 0.002 Current Medications Medications (Trade) Dose Ordered Sig/Hugo Route PRN Reason Start Time Stop Time Status Last Admin Dose Admin Acetaminophen/ Hydrocodone Bitart ([place] 5/325) 1 tab Q6H PRN ORAL For Pain 05/21/20 23:00 05/28/20 22:59 05/24/20 08:40 Aripiprazole (Abilify) 4 mg BEDTIME ORAL 05/22/20 21:00 07/06/20 20:59 05/23/20 21:28 Ascorbic Acid (Vitamin C) 500 mg DAILY ORAL 05/22/20 09:00 06/21/20 08:59 05/24/20 08:39 Atorvastatin Calcium (Lipitor) 20 mg BEDTIME ORAL 05/22/20 21:00 08/20/20 20:59 05/23/20 21:28 Clopidogrel Bisulfate (Plavix) 75 mg DAILY ORAL 05/22/20 09:00 06/21/20 08:59 05/24/20 08:39 Docusate Sodium (Colace) 100 mg DAILY ORAL 05/22/20 09:00 06/21/20 08:59 05/24/20 08:39 Famotidine (Pepcid) 20 mg DAILY ORAL 05/22/20 09:00 08/20/20 08:59 05/24/20 08:40 Finasteride (Proscar) 5 mg DAILY ORAL 05/22/20 09:00 08/20/20 08:59 05/24/20 08:40 Gabapentin (Neurontin) 600 mg THREE TIMES A DAY ORAL 05/22/20 09:00 06/21/20 08:59 05/24/20 08:40 Levofloxacin (Levaquin) 500 mg DAILY ORAL 05/25/20 09:00 05/28/20 08:59 Metoprolol Tartrate (Lopressor) 25 mg EVERY 12 HOURS ORAL 05/22/20 09:00 08/20/20 08:59 05/23/20 21:27 Morphine Sulfate (Morphine Sulfate) 2 mg Q4H PRN IVP For Pain 05/22/20 21:45 05/29/20 21:44 05/23/20 17:43 Regadenoson (Lexiscan) 0.4 mg ONCE PRN IV CARDIOLOGY 05/22/20 16:44 05/24/20 23:59 05/23/20 13:43 Sertraline HCl (Zoloft) 25 mg DAILY ORAL 05/22/20 09:00 06/21/20 08:59 05/24/20 08:40 Trazodone HCl (Desyrel) 50 mg BEDTIME ORAL 05/22/20 21:00 06/21/20 20:59 05/23/20 21:28 Assessment/Plan Assessment/Plan IMPRESSION: 1. Atypical chest pain. 2. History of CAD. 3. Hypertension. 4. Previous COVID-19 pneumonia. 5. Depression. 6. Chronic hep C. DISCUSSION: Noted Cardiology evaluation. Saturating well on 2L/min O2 Will follow Angelina Fraire Omar Syed MD May 24, 2020 10:58
--- NOTE | 2020-05-24 11:44 | NUR ---
DISCHARGE PLANNING DIRECTOR OF DANCE HAS RECEIVED MEDICAL CLEARANCE FROM DR García CARBALLO AND DR MOTT STILL WAITING FOR CARDIAC CLEARANCE PATIENT WILL TRANSFER TO [facility]
--- NOTE | 2020-05-24 11:58 | General Progress Note ---
Assessment/Plan Problem List: (1) Malnutrition ICD Codes: E46 - Unspecified protein-calorie malnutrition SNOMED: 32987094 (2) Diabetes ICD Codes: E11.9 - Type 2 diabetes mellitus without complications SNOMED: 70144115 (3) HTN (hypertension) ICD Codes: I10 - Essential (primary) hypertension SNOMED: 25049559 (4) Chest pain ICD Codes: R07.9 - Chest pain, unspecified SNOMED: 48410279 Qualifiers: Qualified Codes: R07.9 - Chest pain, unspecified (5) Psychosis ICD Codes: F29 - Unspecified psychosis not due to a substance or known physiological condition SNOMED: 38740129 (6) Cirrhosis ICD Codes: K74.60 - Unspecified cirrhosis of liver SNOMED: 57247122 (7) UTI (urinary tract infection) ICD Codes: N39.0 - Urinary tract infection, site not specified SNOMED: 27833745 Qualifiers: Qualified Codes: N39.0 - Urinary tract infection, site not specified Status: unchanged Assessment/Plan: pain bp control psyc tx pt diet eval cbc bmp am psyc trasnfer prn vs dc plan Subjective Constitutional: Reports: weakness Allergies: Coded Allergies: ACETAMINOPHEN (Verified Allergy, Unknown, 08/28/18) ASPIRIN (Verified Allergy, Unknown, 08/28/18) FISH DERIVED (Verified Allergy, Unknown, 10/19/19) KETOROLAC (Verified Allergy, Unknown, 08/28/18) NSAIDS (NON-STEROIDAL ANTI-INFLAMMA (Verified Allergy, Unknown, 09/09/18) TRAMADOL (Verified Allergy, Unknown, 10/19/19) All Systems: reviewed and negative except above Subjective calm in bed w sl cp Objective Last 24 Hour Vital Signs Date Time Temp Pulse Resp B/P (MAP) Pulse Ox O2 Delivery O2 Flow Rate FiO2 05/24/20 09:00 Room Air 05/24/20 08:41 60 107/34 05/24/20 08:00 97.9 60 20 107/34 (58) 98 05/24/20 07:43 59 05/24/20 04:00 62 05/24/20 04:00 98.3 66 17 132/56 (81) 95 05/24/20 00:00 63 05/24/20 00:00 98.1 69 18 116/52 (73) 96 05/23/20 21:27 66 116/48 05/23/20 21:00 Room Air 05/23/20 20:00 70 05/23/20 20:00 98.1 66 17 116/48 (70) 95 05/23/20 16:00 97.9 79 20 115/50 (71) 97 05/23/20 12:00 64 05/23/20 12:00 97.7 77 18 107/44 (65) 96 Intake and Output 05/23/20 05/24/20 19:00 07:00 Intake Total 120 ml 240 ml Output Total 300 ml Balance 120 ml -60 ml Intake Oral 120 ml 240 ml Output Urine Total 300 ml # Voids 1 2 Laboratory Tests 05/24/20 05:46: White Blood Count 4.9, Red Blood Count 4.84, Hemoglobin 14.1L, Hematocrit 45.1, Mean Corpuscular Volume 93, Mean Corpuscular Hemoglobin 29.1, Mean Corpuscular Hemoglobin Concent 31.2L, Red Cell Distribution Width 14.4, Platelet Count 79L, Mean Platelet Volume 10.2H, Neutrophils (%) (Auto) , Lymphocytes (%) (Auto) , Monocytes (%) (Auto) , Eosinophils (%) (Auto) , Basophils (%) (Auto) , Differential Total Cells Counted 100, Neutrophils % (Manual) 63, Lymphocytes % ( Manual) 21, Monocytes % (Manual) 8, Eosinophils % (Manual) 6H, Basophils % ( Manual) 2, Band Neutrophils 0, Platelet Estimate DecreasedL, Platelet Morphology Normal, Red Blood Cell Morphology Normal, Sodium Level 144, Potassium Level 3.7, Chloride Level 110H, Carbon Dioxide Level 27, Anion Gap 8, Blood Urea Nitrogen 15, Creatinine 0.9, Estimat Glomerular Filtration Rate > 60 , Glucose Level 149H, Calcium Level 8.0L, Troponin I 0.002 Height (Feet): 5 Height (Inches): 10.00 Weight (Pounds): 198 General Appearance: lethargic EENT: normal ENT inspection Neck: normal alignment Cardiovascular: normal peripheral pulses, normal rate, regular rhythm Respiratory/Chest: chest wall non-tender, lungs clear, normal breath sounds Abdomen: normal bowel sounds, non tender, soft Extremities: normal inspection Edema: no edema noted Arm (L), no edema noted Arm (R), no edema noted Leg (L), no edema noted Leg (R), no edema noted Pedal (L), no edema noted Pedal (R), no edema noted Generalized Neurologic: motor weakness Skin: normal pigmentation, warm/dry Roberto Georges DO May 24, 2020 11:58
[2020-05-24 11:59] VITALS: BP 116/41
[2020-05-24] MEDS: Morphine Sulfate 2mg/ml Inj(IV/IM USE ONLY) IVP PRN ×3 (13:03→21:43)
--- NOTE | 2020-05-24 13:22 | NUR ---
NURSE NOTES: RN called Dr Ly x2 to clear pt to D/C, still waiting to call back.
--- NOTE | 2020-05-24 15:26 | NUR ---
DISCHARGE PLANNING WE NOW HAVE MEDICAL CLEARANCE FROM CONSULTANT[facility] TO DISCHARGE TO [facility] CALLED TO [facility] AND SPOKE WITH [facility] WHO REQUESTED WE FAX COVID RESULTS AND MEDICAL CLEARANCE ORDER. ~ FAXED PER [facility] THEY WILL REVIEW THE INFORMATION AND THEN ARRANGE FOR SOMEONE FROM [facility] TO COME OUT AND EVALUATE PATIENT TO [facility]; [phone] F: [phone]
--- NOTE | 2020-05-24 15:29 | Cardiac Electrophysiology PN ---
Assessment/Plan Assessment/Plan 1. Chest pain. The patient with hypertension, diabetes, obesity, as well as prior myocardial infarction. The patient's EKG showed old inferior wall myocardial infarction. Was ruled out for myocardial infarction by serial cardiac enzymes. Echocardiogram EF 55%. Nuclear stress test showed no significant ischemia. Continue Lipitor 20 mg daily , Plavix 75 mg daily, and metoprolol 25 mg b.i.d. The patient is allergic to aspirin. 2. Hypertension. Continue metoprolol 25 mg b.i.d. 3. History of CVA with left hemiplegia. On Plavix and Lipitor. 4. Diabetes. 5. Chronic hepatitis C. 6. Previous COVID-19 pneumonia. DW RN OK to DC Subjective Subjective Feeling better. No CP or SOB. Stress test no significant ischemia Objective Last 24 Hour Vital Signs Date Time Temp Pulse Resp B/P (MAP) Pulse Ox O2 Delivery O2 Flow Rate FiO2 05/24/20 11:59 98.9 66 20 116/41 (66) 97 05/24/20 11:44 67 05/24/20 09:00 Room Air 05/24/20 08:41 60 107/34 05/24/20 08:00 97.9 60 20 107/34 (58) 98 05/24/20 07:43 59 05/24/20 04:00 62 05/24/20 04:00 98.3 66 17 132/56 (81) 95 05/24/20 00:00 63 05/24/20 00:00 98.1 69 18 116/52 (73) 96 05/23/20 21:27 66 116/48 05/23/20 21:00 Room Air 05/23/20 20:00 70 05/23/20 20:00 98.1 66 17 116/48 (70) 95 05/23/20 16:00 97.9 79 20 115/50 (71) 97 Intake and Output 05/23/20 05/24/20 19:00 07:00 Intake Total 120 ml 240 ml Output Total 300 ml Balance 120 ml -60 ml Intake Oral 120 ml 240 ml Output Urine Total 300 ml # Voids 1 2 Laboratory Tests Test 05/24/20 05:46 White Blood Count 4.9 K/UL (4.8-10.8) Red Blood Count 4.84 M/UL (4.70-6.10) Hemoglobin 14.1 G/DL (14.2-18.0) L Hematocrit 45.1 % (42.0-52.0) Mean Corpuscular Volume 93 FL (80-99) Mean Corpuscular Hemoglobin 29.1 PG (27.0-31.0) Mean Corpuscular Hemoglobin Concent 31.2 G/DL (32.0-36.0) L Red Cell Distribution Width 14.4 % (11.6-14.8) Platelet Count 79 K/UL (150-450) L Mean Platelet Volume 10.2 FL (6.5-10.1) H Neutrophils (%) (Auto) % (45.0-75.0) Lymphocytes (%) (Auto) % (20.0-45.0) Monocytes (%) (Auto) % (1.0-10.0) Eosinophils (%) (Auto) % (0.0-3.0) Basophils (%) (Auto) % (0.0-2.0) Differential Total Cells Counted 100 Neutrophils % (Manual) 63 % (45-75) Lymphocytes % (Manual) 21 % (20-45) Monocytes % (Manual) 8 % (1-10) Eosinophils % (Manual) 6 % (0-3) H Basophils % (Manual) 2 % (0-2) Band Neutrophils 0 % (0-8) Platelet Estimate Decreased L Platelet Morphology Normal Red Blood Cell Morphology Normal Sodium Level 144 MMOL/L (136-145) Potassium Level 3.7 MMOL/L (3.5-5.1) Chloride Level 110 MMOL/L (98-107) H Carbon Dioxide Level 27 MMOL/L (21-32) Anion Gap 8 mmol/L (5-15) Blood Urea Nitrogen 15 mg/dL (7-18) Creatinine 0.9 MG/DL (0.55-1.30) Estimat Glomerular Filtration Rate > 60 mL/min (>60) Glucose Level 149 MG/DL (74-106) H Calcium Level 8.0 MG/DL (8.5-10.1) L Troponin I 0.002 ng/mL (0.000-0.056) Microbiology Date/Time Source Procedure Growth Status 05/23/20 10:50 Nasopharynx Coronavirus COVID-19 PCR (SCOTTIE) - Final Complete 05/21/20 21:00 Nasal Nares MRSA Culture - Final Staphylococcus Aureus - Mrsa Complete 05/21/20 21:00 Rectum - Final NO CARBAPENEM-RESISTANT ENTEROBACTERI... Complete 05/21/20 21:00 Rectum VRE Culture - Final NO VANCOMYCIN RESISTANT ENTEROCOCCUS ... Complete Objective HEAD AND NECK: No JVD. LUNGS: Coarse rhonchi. CARDIOVASCULAR: Regular S1 and S2 with no gallop or murmur. ABDOMEN: Soft. EXTREMITIES: Left hemiparesis. Tu Benton MD May 24, 2020 15:29
[2020-05-24 15:39] VITALS: BP 122/47
--- NOTE | 2020-05-24 17:08 | NUR ---
TEAM ASSISTANT NOTES SPOKE WITH [facility] A CLINICIAN WILL BE HERE IN 30 MINUTES TO ASSESS PATIENT. PT ACCEPTED TO [facility] 5TH FLOOR ROOM [address] NURSE TO CALL REPORT TO [phone]. NURSE TO CALL AMBULANCE FOR PICKUP WHEN EVALUATION IS COMPLETED. GERMAIN MADE AWARE.
--- NOTE | 2020-05-24 17:35 | NUR ---
Yuliya Clinician here to evaluate patient. Stated, Patient does not meet criteria for Psychiatric Hold. Dr. Georges made aware. await orders.
--- NOTE | 2020-05-24 18:09 | NUR ---
NURSE NOTES: Dr Georges called back and ordered if pt is clear by Dr Benites to sent to SNF, transfer pt to SNF, Dr Benites is aware and ordered pt is clear to transfer to SNF, noted and carried out.
--- NOTE | 2020-05-24 19:20 | NUR ---
HAND-OFF: Report given to RN SUMAYA/TESSIE. Pt is awake and stable, Endorsed plan of care, endorsed to F/U to D/C SNF tomorrow.
--- NOTE | 2020-05-24 19:25 | NUR ---
NURSE NOTES: Report received from Tea ANGULO. Pt was AOx4, on Room air, with no s/s of distress noted. IV located on left hand and wrist 20 claude hep lock and patent. Bed in lowest position, side rails up x2, fall precaution initiated, call light and remote in reach. front desk monitor on - Sinus Rhythm (60's).
[2020-05-24 20:00] VITALS: BP 128/52
[2020-05-24] MEDS: ARIPiprazole 2mg tab ORAL SCH (21:30)
[2020-05-24] MEDS: TraZODone 50mg tab ORAL SCH (21:30)
[2020-05-24] MEDS: Atorvastatin 20mg tab ORAL SCH (21:30)
[2020-05-25] VITALS: BP 121/49
[2020-05-25] MEDS: Morphine Sulfate 2mg/ml Inj(IV/IM USE ONLY) IVP PRN ×3 (01:54→10:04)
[2020-05-25 04:00] VITALS: BP 122/56
[2020-05-25 05:55] LABS: HEMOGLOBIN 14.9 G/DL (14.2-18.0); MEAN CORPUSCULAR VOLUME 93 FL (80-99); PLATELET COUNT 83 K/UL (150-450); RED BLOOD COUNT 5.17 M/UL (4.70-6.10); RED CELL DISTRIBUTION WIDTH 14.5 % (11.6-14.8); WHITE BLOOD COUNT 4.2 K/UL (4.8-10.8)
[2020-05-25 06:09] LABS: ANION GAP 8 mmol/L (5-15); BLOOD UREA NITROGEN 13 mg/dL (7-18); CALCIUM 7.8 MG/DL (8.5-10.1); CARBON DIOXIDE 28 MMOL/L (21-32); CHLORIDE 108 MMOL/L (98-107); CREATININE 0.9 MG/DL (0.55-1.30); POTASSIUM 3.9 MMOL/L (3.5-5.1); SODIUM 143 MMOL/L (136-145)
--- NOTE | 2020-05-25 06:15 | NUR ---
NURSE NOTES: Left message to Dr. Benton that patient experienced episode of Sinus Rhythm with 1AVB, VS (128/52, 63 HR, 94% on room air, 20 RR, 100.0 temp). No complaints of chest pain or s/s of distress noted. Patient converted back to Sinus Rhythm since, vital signs stable. Currently awaiting call back.
--- NOTE | 2020-05-25 07:25 | NUR ---
HAND-OFF: Report given to ADELE [place]. Plan of care endorsed.
--- NOTE | 2020-05-25 07:54 | NUR ---
NURSE NOTES: pt. in bed watching TV. no complains of pain. Pt on manager monitoring, no signs of cardiac or respiratory distress. Bed in lowest position, and locked. Call light within reach, bed side rails up x2. Will continue to monitor pt.
[2020-05-25 08:00] VITALS: BP 138/45
[2020-05-25] MEDS ORDERED: Levofloxacin 500mg tab ORAL SCH (09:00)
--- NOTE | 2020-05-25 09:07 | General Progress Note ---
Assessment/Plan Problem List: (1) Malnutrition ICD Codes: E46 - Unspecified protein-calorie malnutrition SNOMED: 28230626 (2) Diabetes ICD Codes: E11.9 - Type 2 diabetes mellitus without complications SNOMED: 59186297 (3) HTN (hypertension) ICD Codes: I10 - Essential (primary) hypertension SNOMED: 59098974 (4) Chest pain ICD Codes: R07.9 - Chest pain, unspecified SNOMED: 76198971 Qualifiers: Qualified Codes: R07.9 - Chest pain, unspecified (5) Psychosis ICD Codes: F29 - Unspecified psychosis not due to a substance or known physiological condition SNOMED: 21824404 (6) Cirrhosis ICD Codes: K74.60 - Unspecified cirrhosis of liver SNOMED: 88421892 (7) UTI (urinary tract infection) ICD Codes: N39.0 - Urinary tract infection, site not specified SNOMED: 24032959 Qualifiers: Qualified Codes: N39.0 - Urinary tract infection, site not specified Status: stable, progressing Assessment/Plan: pain bp control psyc tx pt diet eval cbc bmp am psyc trasnfer prn vs dc plan Subjective Constitutional: Reports: weakness Allergies: Coded Allergies: ACETAMINOPHEN (Verified Allergy, Unknown, 08/28/18) ASPIRIN (Verified Allergy, Unknown, 08/28/18) FISH DERIVED (Verified Allergy, Unknown, 10/19/19) KETOROLAC (Verified Allergy, Unknown, 08/28/18) NSAIDS (NON-STEROIDAL ANTI-INFLAMMA (Verified Allergy, Unknown, 09/09/18) TRAMADOL (Verified Allergy, Unknown, 10/19/19) All Systems: reviewed and negative except above Subjective calm in bed w sl cp Objective Last 24 Hour Vital Signs Date Time Temp Pulse Resp B/P (MAP) Pulse Ox O2 Delivery O2 Flow Rate FiO2 05/25/20 04:00 64 05/25/20 04:00 98.4 65 18 122/56 (78) 96 05/25/20 00:00 99.3 62 18 121/49 (73) 97 05/25/20 00:00 64 05/24/20 22:13 99.3 05/24/20 21:29 63 128/52 05/24/20 21:00 Room Air 05/24/20 20:00 67 05/24/20 20:00 100.0 63 20 128/52 (77) 94 05/24/20 15:40 68 05/24/20 15:39 99.5 68 20 122/47 (72) 98 05/24/20 11:59 98.9 66 20 116/41 (66) 97 05/24/20 11:44 67 Intake and Output 05/24/20 05/25/20 19:00 07:00 Intake Total 960 ml 250 ml Balance 960 ml 250 ml Intake Oral 960 ml 250 ml # Voids 4 3 # Bowel Movements 1 Laboratory Tests 05/25/20 05:20: White Blood Count 4.2L, Red Blood Count 5.17, Hemoglobin 14.9, Hematocrit 48.0, Mean Corpuscular Volume 93, Mean Corpuscular Hemoglobin 28.9, Mean Corpuscular Hemoglobin Concent 31.1L, Red Cell Distribution Width 14.5, Platelet Count 83L, Mean Platelet Volume 11.5H, Neutrophils (%) (Auto) , Lymphocytes (%) (Auto) , Monocytes (%) (Auto) , Eosinophils (%) (Auto) , Basophils (%) (Auto) , Sodium Level 143, Potassium Level 3.9, Chloride Level 108H, Carbon Dioxide Level 28, Anion Gap 8, Blood Urea Nitrogen 13, Creatinine 0.9, Estimat Glomerular Filtration Rate > 60, Glucose Level 132H, Calcium Level 7.8L Height (Feet): 5 Height (Inches): 10.00 Weight (Pounds): 198 General Appearance: lethargic EENT: normal ENT inspection Neck: normal alignment Cardiovascular: normal peripheral pulses, normal rate, regular rhythm Respiratory/Chest: chest wall non-tender, lungs clear, normal breath sounds Abdomen: normal bowel sounds, non tender, soft Extremities: normal inspection Edema: no edema noted Arm (L), no edema noted Arm (R), no edema noted Leg (L), no edema noted Leg (R), no edema noted Pedal (L), no edema noted Pedal (R), no edema noted Generalized Neurologic: motor weakness Skin: normal pigmentation, warm/dry Roberto Georges DO May 25, 2020 09:07
[2020-05-25] MEDS: Docusate 100mg cap ORAL SCH (09:25)
[2020-05-25] MEDS: Sertraline 50mg tab ORAL SCH (09:26)
[2020-05-25] MEDS: Ascorbic Acid 500mg tab ORAL SCH (09:29)
--- NOTE | 2020-05-25 09:44 | Infectious Diseases Prog Note ---
Assessment/Plan Assessment/Plan antibiotics : levoquin A 1. Urinary tract infection. 2. COVID-19 test negative 3. Hepatitis C. 4. Cirrhosis. 5. Diabetes. 6. Hypertension P 1. continue po levoquin 2 more days 2. will follow up cultures Subjective Constitutional: Denies: fever, chills Respiratory: Denies: shortness of breath, dry cough Gastrointestinal/Abdominal: Denies: nausea, vomiting, diarrhea Musculoskeletal: Reports: pain - right back Allergies: Coded Allergies: ACETAMINOPHEN (Verified Allergy, Unknown, 08/28/18) ASPIRIN (Verified Allergy, Unknown, 08/28/18) FISH DERIVED (Verified Allergy, Unknown, 10/19/19) KETOROLAC (Verified Allergy, Unknown, 08/28/18) NSAIDS (NON-STEROIDAL ANTI-INFLAMMA (Verified Allergy, Unknown, 09/09/18) TRAMADOL (Verified Allergy, Unknown, 10/19/19) Objective Last 24 Hour Vital Signs Date Time Temp Pulse Resp B/P (MAP) Pulse Ox O2 Delivery O2 Flow Rate FiO2 05/25/20 09:29 64 138/45 05/25/20 04:00 64 05/25/20 04:00 98.4 65 18 122/56 (78) 96 05/25/20 00:00 99.3 62 18 121/49 (73) 97 05/25/20 00:00 64 05/24/20 22:13 99.3 05/24/20 21:29 63 128/52 05/24/20 21:00 Room Air 05/24/20 20:00 67 05/24/20 20:00 100.0 63 20 128/52 (77) 94 05/24/20 15:40 68 05/24/20 15:39 99.5 68 20 122/47 (72) 98 05/24/20 11:59 98.9 66 20 116/41 (66) 97 05/24/20 11:44 67 Height (Feet): 5 Height (Inches): 10.00 Weight (Pounds): 198 Respiratory/Chest: lungs clear Cardiovascular: normal rate, regular rhythm, no gallop/murmur Abdomen: soft, non tender Extremities: no edema Microbiology Date/Time Source Procedure Growth Status 05/23/20 10:50 Nasopharynx Coronavirus COVID-19 PCR ([facility]OTTIE) - Final Complete Laboratory Tests Test 05/25/20 05:20 White Blood Count 4.2 K/UL (4.8-10.8) L Red Blood Count 5.17 M/UL (4.70-6.10) Hemoglobin 14.9 G/DL (14.2-18.0) Hematocrit 48.0 % (42.0-52.0) Mean Corpuscular Volume 93 FL (80-99) Mean Corpuscular Hemoglobin 28.9 PG (27.0-31.0) Mean Corpuscular Hemoglobin Concent 31.1 G/DL (32.0-36.0) L Red Cell Distribution Width 14.5 % (11.6-14.8) Platelet Count 83 K/UL (150-450) L Mean Platelet Volume 11.5 FL (6.5-10.1) H Neutrophils (%) (Auto) % (45.0-75.0) Lymphocytes (%) (Auto) % (20.0-45.0) Monocytes (%) (Auto) % (1.0-10.0) Eosinophils (%) (Auto) % (0.0-3.0) Basophils (%) (Auto) % (0.0-2.0) Sodium Level 143 MMOL/L (136-145) Potassium Level 3.9 MMOL/L (3.5-5.1) Chloride Level 108 MMOL/L (98-107) H Carbon Dioxide Level 28 MMOL/L (21-32) Anion Gap 8 mmol/L (5-15) Blood Urea Nitrogen 13 mg/dL (7-18) Creatinine 0.9 MG/DL (0.55-1.30) Estimat Glomerular Filtration Rate > 60 mL/min (>60) Glucose Level 132 MG/DL (74-106) H Calcium Level 7.8 MG/DL (8.5-10.1) L Current Medications Medications (Trade) Dose Ordered Sig/Hugo Route PRN Reason Start Time Stop Time Status Last Admin Dose Admin Acetaminophen/ Hydrocodone Bitart ([place] 5/325) 1 tab Q6H PRN ORAL For Pain 05/21/20 23:00 05/28/20 22:59 05/24/20 08:40 Aripiprazole (Abilify) 4 mg BEDTIME ORAL 05/22/20 21:00 07/06/20 20:59 05/24/20 21:30 Ascorbic Acid (Vitamin C) 500 mg DAILY ORAL 05/22/20 09:00 06/21/20 08:59 05/25/20 09:29 Atorvastatin Calcium (Lipitor) 20 mg BEDTIME ORAL 05/22/20 21:00 08/20/20 20:59 05/24/20 21:30 Clopidogrel Bisulfate (Plavix) 75 mg DAILY ORAL 05/22/20 09:00 06/21/20 08:59 05/25/20 09:26 Docusate Sodium (Colace) 100 mg DAILY ORAL 05/22/20 09:00 06/21/20 08:59 05/25/20 09:25 Famotidine (Pepcid) 20 mg DAILY ORAL 05/22/20 09:00 08/20/20 08:59 05/25/20 09:26 Finasteride (Proscar) 5 mg DAILY ORAL 05/22/20 09:00 08/20/20 08:59 05/25/20 09:26 Gabapentin (Neurontin) 600 mg THREE TIMES A DAY ORAL 05/22/20 09:00 06/21/20 08:59 05/25/20 09:26 Levofloxacin (Levaquin) 500 mg DAILY ORAL 05/25/20 09:00 05/28/20 08:59 05/25/20 09:26 Metoprolol Tartrate (Lopressor) 25 mg EVERY 12 HOURS ORAL 05/22/20 09:00 08/20/20 08:59 05/25/20 09:29 Morphine Sulfate (Morphine Sulfate) 2 mg Q4H PRN IVP For Pain 05/22/20 21:45 05/29/20 21:44 05/25/20 06:00 Sertraline HCl (Zoloft) 25 mg DAILY ORAL 05/22/20 09:00 06/21/20 08:59 05/25/20 09:26 Trazodone HCl (Desyrel) 50 mg BEDTIME ORAL 05/22/20 21:00 06/21/20 20:59 05/24/20 21:30 Alex Mccord MD May 25, 2020 09:44
--- NOTE | 2020-05-25 10:55 | Cardiac Electrophysiology PN ---
Assessment/Plan Assessment/Plan 1. Chest pain in a pt with hypertension, diabetes, obesity, as well as prior myocardial infarction. The patient's EKG showed old inferior wall myocardial infarction. Was ruled out for myocardial infarction by serial cardiac enzymes. Echocardiogram EF 55%. Nuclear stress test showed no significant ischemia. Continue Lipitor 20 mg daily, Plavix 75 mg daily, and metoprolol 25 mg b.i.d. The patient is allergic to aspirin. 2. Hypertension. Continue metoprolol 25 mg b.i.d. 3. History of CVA with left hemiplegia. On Plavix and Lipitor. 4. Diabetes. 5. Chronic hepatitis C. 6. Previous COVID-19 pneumonia. BETZY RN DC to [facility] pending Subjective Subjective Feeling better. No CP or SOB. Stress test showed no significant ischemia. DC planning to SNIF pending Objective Last 24 Hour Vital Signs Date Time Temp Pulse Resp B/P (MAP) Pulse Ox O2 Delivery O2 Flow Rate FiO2 05/25/20 09:29 64 138/45 05/25/20 04:00 64 05/25/20 04:00 98.4 65 18 122/56 (78) 96 05/25/20 00:00 99.3 62 18 121/49 (73) 97 05/25/20 00:00 64 05/24/20 22:13 99.3 05/24/20 21:29 63 128/52 05/24/20 21:00 Room Air 05/24/20 20:00 67 05/24/20 20:00 100.0 63 20 128/52 (77) 94 05/24/20 15:40 68 05/24/20 15:39 99.5 68 20 122/47 (72) 98 05/24/20 11:59 98.9 66 20 116/41 (66) 97 05/24/20 11:44 67 Intake and Output 05/24/20 05/25/20 19:00 07:00 Intake Total 960 ml 250 ml Balance 960 ml 250 ml Intake Oral 960 ml 250 ml # Voids 4 3 # Bowel Movements 1 Laboratory Tests Test 05/25/20 05:20 White Blood Count 4.2 K/UL (4.8-10.8) L Red Blood Count 5.17 M/UL (4.70-6.10) Hemoglobin 14.9 G/DL (14.2-18.0) Hematocrit 48.0 % (42.0-52.0) Mean Corpuscular Volume 93 FL (80-99) Mean Corpuscular Hemoglobin 28.9 PG (27.0-31.0) Mean Corpuscular Hemoglobin Concent 31.1 G/DL (32.0-36.0) L Red Cell Distribution Width 14.5 % (11.6-14.8) Platelet Count 83 K/UL (150-450) L Mean Platelet Volume 11.5 FL (6.5-10.1) H Neutrophils (%) (Auto) % (45.0-75.0) Lymphocytes (%) (Auto) % (20.0-45.0) Monocytes (%) (Auto) % (1.0-10.0) Eosinophils (%) (Auto) % (0.0-3.0) Basophils (%) (Auto) % (0.0-2.0) Sodium Level 143 MMOL/L (136-145) Potassium Level 3.9 MMOL/L (3.5-5.1) Chloride Level 108 MMOL/L (98-107) H Carbon Dioxide Level 28 MMOL/L (21-32) Anion Gap 8 mmol/L (5-15) Blood Urea Nitrogen 13 mg/dL (7-18) Creatinine 0.9 MG/DL (0.55-1.30) Estimat Glomerular Filtration Rate > 60 mL/min (>60) Glucose Level 132 MG/DL (74-106) H Calcium Level 7.8 MG/DL (8.5-10.1) L Microbiology Date/Time Source Procedure Growth Status 05/23/20 10:50 Nasopharynx Coronavirus COVID-19 PCR ([facility]) - Final Complete Objective HEAD AND NECK: No JVD. LUNGS: Coarse rhonchi. CARDIOVASCULAR: Regular S1 and S2 with no gallop or murmur. ABDOMEN: Soft. EXTREMITIES: Left hemiparesis. Tu Benton MD May 25, 2020 10:55
--- NOTE | 2020-05-25 11:23 | NUR ---
*-*DISCHARGE PLANNED*-* PATIENT HAS BEEN ACCEPTED AND WILL BE DISCHARGED BACK TO: [facility] P: [phone] FOR NURSE TO NURSE REPORT ROOM# 11.B SKILLED [facility] TRANSPORTATION SET FOR 1:30PM S/W KELSY [id number] PLACED A CALL TO PATIENTS DAUGHTER, PEDRO SANCHEZ, JAMISON KHANER LEFT A VOICE MESSAGE, IN-REGARDS TO DISCHARGE PLAN.
--- NOTE | 2020-05-25 11:59 | Progress Note ---
DATE: 05/25/2020 SUBJECTIVE: This is a 54-year-old male patient. This patient is still very confused and disorganized. He has got a lot of mood lability, agitation, and irritability, but he is very confused secondary to flank pain, chest pain, diabetes, malnutrition, hypertension, coronary artery disease, psychosis, cirrhosis, hepatitis C, thrombocytopenia causing him to have altered mental status and decline in cognition below his baseline. MENTAL STATUS EXAMINATION: This is a 54-year-old male. His appearance is disheveled. Attitude, irritable and agitated. Affect, guarded and restricted. Intellect, poor. Mood, depressed and anxious. Motor activity, psychomotor agitation. Attention span is poor. Orientation x2. Speech is low volume and slurred. Thought process, disorganized and illogical. Insight and judgment is poor. DIAGNOSIS: Paranoid schizophrenia, acute exacerbation. PLAN: Treat him with Abilify 4 mg nightly, Neurontin 600 mg three times a day as well as Zoloft 25 mg a day, and trazodone 50 mg nightly. 20 minutes of cognitive behavioral therapy will help him identify his automatic negative thoughts and help convert his negative thoughts to more positive thoughts to reduce depression, anxiety, and mood lability. Chart reviewed. Discussed with staff. Seen and assessed at his bedside. Amy Benites M.D. DR: AMAN JOB#: [id number] CC:
[2020-05-25 12:00] VITALS: BP 110/46
--- NOTE | 2020-05-25 12:00 | Pulmonology Progress Note ---
Subjective ROS Limited/Unobtainable: No Interval Events: None new Constitutional: Denies: fever, chills HEENT: Repors: no symptoms Respiratory: Reports: no symptoms Cardiovascular: Reports: no symptoms Gastrointestinal/Abdominal: Denies: nausea, vomiting, diarrhea Musculoskeletal: Reports: pain - right back Allergies: Coded Allergies: ACETAMINOPHEN (Verified Allergy, Unknown, 08/28/18) ASPIRIN (Verified Allergy, Unknown, 08/28/18) FISH DERIVED (Verified Allergy, Unknown, 10/19/19) KETOROLAC (Verified Allergy, Unknown, 08/28/18) NSAIDS (NON-STEROIDAL ANTI-INFLAMMA (Verified Allergy, Unknown, 09/09/18) TRAMADOL (Verified Allergy, Unknown, 10/19/19) All Systems: reviewed and negative except above Objective Last 24 Hour Vital Signs Date Time Temp Pulse Resp B/P (MAP) Pulse Ox O2 Delivery O2 Flow Rate FiO2 05/25/20 09:29 64 138/45 05/25/20 09:00 Room Air 05/25/20 08:00 97.9 65 20 138/45 (76) 95 05/25/20 08:00 58 05/25/20 04:00 64 05/25/20 04:00 98.4 65 18 122/56 (78) 96 05/25/20 00:00 99.3 62 18 121/49 (73) 97 05/25/20 00:00 64 05/24/20 22:13 99.3 05/24/20 21:29 63 128/52 05/24/20 21:00 Room Air 05/24/20 20:00 67 05/24/20 20:00 100.0 63 20 128/52 (77) 94 05/24/20 15:40 68 05/24/20 15:39 99.5 68 20 122/47 (72) 98 Intake and Output 05/24/20 05/25/20 19:00 07:00 Intake Total 960 ml 250 ml Balance 960 ml 250 ml Intake Oral 960 ml 250 ml # Voids 4 3 # Bowel Movements 1 General Appearance: no acute distress HEENT: normocephalic Respiratory: chest wall non-tender, lungs clear Cardiovascular: normal peripheral pulses, normal rate Abdomen: normal bowel sounds Microbiology Date/Time Source Procedure Growth Status 05/23/20 10:50 Nasopharynx Coronavirus COVID-19 PCR (SCOTTIE) - Final Complete Laboratory Tests 05/25/20 05:20: White Blood Count 4.2L, Red Blood Count 5.17, Hemoglobin 14.9, Hematocrit 48.0, Mean Corpuscular Volume 93, Mean Corpuscular Hemoglobin 28.9, Mean Corpuscular Hemoglobin Concent 31.1L, Red Cell Distribution Width 14.5, Platelet Count 83L, Mean Platelet Volume 11.5H, Neutrophils (%) (Auto) , Lymphocytes (%) (Auto) , Monocytes (%) (Auto) , Eosinophils (%) (Auto) , Basophils (%) (Auto) , Sodium Level 143, Potassium Level 3.9, Chloride Level 108H, Carbon Dioxide Level 28, Anion Gap 8, Blood Urea Nitrogen 13, Creatinine 0.9, Estimat Glomerular Filtration Rate > 60, Glucose Level 132H, Calcium Level 7.8L Current Medications Medications (Trade) Dose Ordered Sig/Hugo Route PRN Reason Start Time Stop Time Status Last Admin Dose Admin Acetaminophen/ Hydrocodone Bitart ([place] 5/325) 1 tab Q6H PRN ORAL For Pain 05/21/20 23:00 05/28/20 22:59 05/24/20 08:40 Aripiprazole (Abilify) 4 mg BEDTIME ORAL 05/22/20 21:00 07/06/20 20:59 05/24/20 21:30 Ascorbic Acid (Vitamin C) 500 mg DAILY ORAL 05/22/20 09:00 06/21/20 08:59 05/25/20 09:29 Atorvastatin Calcium (Lipitor) 20 mg BEDTIME ORAL 05/22/20 21:00 08/20/20 20:59 05/24/20 21:30 Clopidogrel Bisulfate (Plavix) 75 mg DAILY ORAL 05/22/20 09:00 06/21/20 08:59 05/25/20 09:26 Docusate Sodium (Colace) 100 mg DAILY ORAL 05/22/20 09:00 06/21/20 08:59 05/25/20 09:25 Famotidine (Pepcid) 20 mg DAILY ORAL 05/22/20 09:00 08/20/20 08:59 05/25/20 09:26 Finasteride (Proscar) 5 mg DAILY ORAL 05/22/20 09:00 08/20/20 08:59 05/25/20 09:26 Gabapentin (Neurontin) 600 mg THREE TIMES A DAY ORAL 05/22/20 09:00 06/21/20 08:59 05/25/20 09:26 Levofloxacin (Levaquin) 500 mg DAILY ORAL 05/25/20 09:00 05/28/20 08:59 05/25/20 09:26 Metoprolol Tartrate (Lopressor) 25 mg EVERY 12 HOURS ORAL 05/22/20 09:00 08/20/20 08:59 05/25/20 09:29 Morphine Sulfate (Morphine Sulfate) 2 mg Q4H PRN IVP For Pain 05/22/20 21:45 05/29/20 21:44 05/25/20 10:04 Sertraline HCl (Zoloft) 25 mg DAILY ORAL 05/22/20 09:00 06/21/20 08:59 05/25/20 09:26 Trazodone HCl (Desyrel) 50 mg BEDTIME ORAL 05/22/20 21:00 06/21/20 20:59 05/24/20 21:30 Assessment/Plan Assessment/Plan IMPRESSION: 1. Atypical chest pain. 2. History of CAD. 3. Hypertension. 4. Previous COVID-19 pneumonia. 5. Depression. 6. Chronic hep C. DISCUSSION: Noted Cardiology evaluation. Saturating well on 2L/min O2 Will follow agree with discharge plans. Agree with discharge plans Angelina Fraire Omar Syed MD May 25, 2020 12:00
--- NOTE | 2020-05-25 13:00 | NUR ---
NURSE NOTES: gave report to SNF, family members Radha,was notified pt will be DC today. ambulance is running late pt will be P/U 1430.
[2020-05-25] MEDS ORDERED: PLAVIX75 MG ORAL (13:22)
[2020-05-25] MEDS: HYDROcodone/Acetamin 5/325 tab ORAL PRN (14:12)
--- NOTE | 2020-05-25 15:40 | NUR ---
NURSE NOTES: Zaira received report at SNF. pt was DC in stable condition via ambulance. plate and weld inspector taken off pt. Pt does is not experiencing any cardiac or respiratory distress at this time. Both Iv's were discontinued before pt departed hospital, applied pressure, site is not bleeding. Condom cath was taken off before pt was DC, penis skin is intact. Pt did not have any belonging. Discharge instructions were given to pt, pt verbalized understanding.
--- NOTE | 2020-05-27 14:39 | Discharge Summary ---
Discharge Summary Discharge Summary _ DATE OF ADMISSION: 05/21/2020 DATE OF DISCHARGE: 05/25/2020 DISCHARGED BY: Dr. Roberto Georges CONSULTANTS: Dr. Leigh Mccord BRIEF HOSPITAL COURSE: The patient is a 54-year-old male, who lives at [facility], was taken to ED for evaluation of substernal chest pain. Symptoms started while he was watching TV. Pain was 8 out of 10 and described to be "squeezing his heart." He had prior heart attack and prior cardiopulmonary arrest in the past. EMS were summoned and patient was given aspirin and nitroglycerin. Patient stated neither medications helped him. He denied any fever or chills. He also complained of right flank pain he denied any hematuria or dysuria. He had ureteral stent in the past. He tested positive for COVID-19 during his inpatient admission in March. Upon evaluation at the ED, vital signs were stable.. Blood work did not show any leukocytosis. Hemoglobin and hematocrit were stable. Electrolytes were normal. Troponin negative. CRP 1.8. He was given morphine, Zofran and nitroglycerin. EKG showed low voltage but nonspecific STT wave changes. Chest x-ray did not show any infiltrates. Urinalysis showed pyuria. He was given a dose of Rocephin. Patient's pain improved with treatment. Due to his risk factors, he was admitted for further evaluation. He was admitted to monitored floor. Cardiac enzymes were monitored. EKG showed old inferior wall myocardial infarction. He was continued on Lipitor 20 mg daily, Plavix 75 mg daily, metoprolol 25 mg twice daily. He is allergic to aspirin. He underwent psychiatric evaluation. He was fixated on his pain medications. He denied any suicidal or homicidal ideation. He was given psychotropic medications including Zoloft 25 mg, Neurontin 600 mg 3 times daily as well as Abilify 4 mg nightly and trazodone 50 mg nightly. Cardiac enzymes were negative. He underwent nuclear stress test and results did not show any significant ischemia. He was continued on Lipitor, Plavix and metoprolol. He was started empirically on Rocephin for pyuria. COVID-19 test was negative. Patient was initially planned for transfer to psychiatric facility. PET team evaluated patient and patient did not meet Criteria for psychiatric hold. Patient was then discharged back to senior living. FINAL DIAGNOSES: Atypical chest pain in a patient with hypertension, diabetes, obesity and prior VT Paranoid schizophrenia, acute exacerbation Urinary tract infection Coronary artery disease Hypertension Prior CVA with left hemiplegia Previous COVID-19 pneumonia Depression Chronic hepatitis C Chronic thrombocytopenia DISPOSITION: DC back to SNF. DISCHARGE MEDICATIONS: Refer to Discharge Medication List. I have been assigned to complete a discharge summary on this account, I was not involved with the patient's management.--JEROD Cuevas Jacqueline Robles NP May 27, 2020 14:39
== END 2020-05-25 15:40 | DRG 206 ==
LOC: EDBD 18:41 → EDUNIT# 18:41 → EMR 19:15 → 2E 19:42 → EDBEDREQ 20:45
DX: M94.0 Chondrocostal junction syndrome [Tietze] (principal); N39.0 Urinary tract infection, site not specified; E46 Unspecified protein-calorie malnutrition; F20.0 Paranoid schizophrenia; I69.354 Hemiplegia and hemiparesis following cerebral infarction affecting left non-dominant side; R10.9 Unspecified abdominal pain; F41.9 Anxiety disorder, unspecified; I25.2 Old myocardial infarction; Z88.6 Allergy status to analgesic agent; Z88.8 Allergy status to other drugs, medicaments and biological substances; E11.9 Type 2 diabetes mellitus without complications; E66.9 Obesity, unspecified; B18.2 Chronic viral hepatitis C; D69.6 Thrombocytopenia, unspecified; F32.9 Major depressive disorder, single episode, unspecified; I25.10 Atherosclerotic heart disease of native coronary artery without angina pectoris; Z86.19 Personal history of other infectious and parasitic diseases; I10 Essential (primary) hypertension; G62.9 Polyneuropathy, unspecified; K74.60 Unspecified cirrhosis of liver; F29 Unspecified psychosis not due to a substance or known physiological condition
CPT/HCPCS: 36415; 71045; 78452; 80048; 80053; 81003; 82550; 83690; 83880; 84484; 85007; 85025; 85610; 85730; 86140; 87081; 87086; 93005; 93017; 93306; 93970; 96361; 96365; 96375; 99285; J2405; J2785; J7030

== ENCOUNTER 2020-06-03 19:57 | Emergency (ER) | payer MEDICARE, OTHER ==
[~2020-06-03] VITALS: Ht 180.3 cm; Wt 113.4 kg
[~2020-06-03 19:57] MED LIST changes: +DOCUSATE SODIU100 M2 ORAL; +HUMALOG100 UNIT/1 SUBQ; +LOTRIMIN AF24 GM TP; +NITRO0.4 SL; +NIZORAL 2% C1 APPLIC TOPIC; +NORCO 5-325 TA1 EAC1 ORAL; +QUERCETIN DIHYDR1 GM PO; +SERTRALINE HCL25 MG ORAL
[2020-06-03 20:05] VITALS: BP 124/61
[2020-06-03] MEDS ORDERED: Morphine Sulfate 2mg/ml Inj(IV/IM USE ONLY) IVP ONE (20:15)
--- NOTE | 2020-06-03 20:21 | Emergency Room Report ---
History of Present Illness General Chief Complaint: Chest Pain Source: Patient Present Illness HPI Disclaimer: Please note that this report is being documented using DRAGON technology. This can lead to erroneous entry secondary to incorrect interpretation by the dictating instrument. HPI: 54-year-old male with a history of obesity, hypertension, hyperlipidemia, schizophrenia, cirrhosis presents from [facility] complaining of chest pain. He reports substernal burning sensation beginning approximately 3 PM while he was watching TV. Nonradiating. No associated shortness of breath, cough, nausea, vomiting, diaphoresis, back or flank pain. Pain is been constant since onset. Does not remember eating anything spicy or irritating to his stomach. Recently in the emergency department and admitted to the hospital for chest pain work-up which was negative.Nuclear stress test was performed did not show inducible ischemia. He continues on Lipitor Plavix and metoprolol. Tested negative for COVID-19 on his last admission. Denies recent cough, shortness of breath, fever, chills. PMH: Hypertension, hyperlipidemia, CAD, schizophrenia PSH: Ureteral stents Allergies: Reviewed Social Hx: Reviewed Allergies: Coded Allergies: ACETAMINOPHEN (Verified Allergy, Unknown, 08/28/18) ASPIRIN (Verified Allergy, Unknown, 08/28/18) FISH DERIVED (Verified Allergy, Unknown, 10/19/19) KETOROLAC (Verified Allergy, Unknown, 08/28/18) NSAIDS (NON-STEROIDAL ANTI-INFLAMMA (Verified Allergy, Unknown, 09/09/18) TRAMADOL (Verified Allergy, Unknown, 10/19/19) Uncoded Allergies: FISH DERIVED PRODUCTS (Allergy, Unknown, 06/03/20) NSAIDS (Allergy, Unknown, 06/03/20) COVID-19 Screening Contact w/high risk pt: No Recent Travel to affected area: No Experienced COVID-19 symptoms?: No COVID-19 symptoms experienced: Shortness of Breath COVID-19 Testing performed [employer]ENT: No COVID-19 Screening: Negative COVID-19 Nursing Documentation-PMH Hx Cardiac Problems: Yes - [place], stroke LT side deficients Hx Hypertension: Yes Hx Pacemaker: No - polyneuropathy, thrombocytopenia Hx Diabetes: Yes Hx Cancer: No Hx Gastrointestinal Problems: Yes - abdominal pain Hx Dialysis: No - History of kidney stones, UTI, BPH Hx Neurological Problems: Yes Hx Cerebrovascular Accident: Yes Hx Weakness: Yes Hx Neurologic Surgery: No Review of Systems All Other Systems: negative except mentioned in HPI Physical Exam Vital Signs Date Time Temp Pulse Resp B/P (MAP) Pulse Ox O2 Delivery O2 Flow Rate FiO2 06/03/20 19:52 98.4 65 16 124/61 (82) 95 Room Air General: Awake and alert, no acute distress HEENT: NC/AT. EOMI. Cardiovascular: RRR. S1 and S2 normal. No murmur appreciated Resp: Normal work of breathing. No cough, wheezing or crackles appreciated Abdomen: Abdomen is soft, nondistended. Nontender Skin: Intact. No abrasions, laceration or rash over the exposed skin MSK: Normal tone and bulk. Moving all extremities. No obvious deformity. Neuro: Awake and alert. Mentating appropriately. Medical Decision Making Diagnostic Impression: Primary Impression: Chest pain ER Course 54-year-old male presents from nursing facility for evaluation of chest pain beginning 3 PM today which he describes as burning. Most consistent with GERD, esophagitis. ACS, arrhythmia, pericarditis, no colitis, anemia, pneumonia also on the differential. Labs and x-rays were obtained which have returned within normal limits. Troponin negative. No evidence of infiltrate on chest x-ray. EKG shows sinus rhythm without ST segment changes. Patient was recently seen at this hospital and admitted for similar complaints. Nuclear stress test did not show any inducible ischemia. He will continue his cardiac medications and be discharged to his nursing facility. I updated his PMD, Dr. Georges, who agrees. Will arrange transport. Laboratory Tests Test 06/03/20 20:15 06/03/20 21:25 White Blood Count 7.0 K/UL (4.8-10.8) Red Blood Count 5.29 M/UL (4.70-6.10) Hemoglobin 15.5 G/DL (14.2-18.0) Hematocrit 48.1 % (42.0-52.0) Mean Corpuscular Volume 91 FL (80-99) Mean Corpuscular Hemoglobin 29.3 PG (27.0-31.0) Mean Corpuscular Hemoglobin Concent 32.2 G/DL (32.0-36.0) Red Cell Distribution Width 15.4 % (11.6-14.8) H Platelet Count 105 K/UL (150-450) L Mean Platelet Volume 11.0 FL (6.5-10.1) H Neutrophils (%) (Auto) 64.0 % (45.0-75.0) Lymphocytes (%) (Auto) 24.6 % (20.0-45.0) Monocytes (%) (Auto) 7.5 % (1.0-10.0) Eosinophils (%) (Auto) 3.1 % (0.0-3.0) H Basophils (%) (Auto) 0.8 % (0.0-2.0) Prothrombin Time 12.0 SEC (9.30-11.50) H Prothrombin Time INR 1.1 (0.9-1.1) Activated Partial Thromboplast Time 30 SEC (23-33) Sodium Level 138 MMOL/L (136-145) Potassium Level 3.8 MMOL/L (3.5-5.1) Chloride Level 105 MMOL/L (98-107) Carbon Dioxide Level 26 MMOL/L (21-32) Anion Gap 7 mmol/L (5-15) Blood Urea Nitrogen 12 mg/dL (7-18) Creatinine 1.0 MG/DL (0.55-1.30) Estimated Glomerular Filtration Rate > 60 mL/min (>60) Glucose Level 138 MG/DL (74-106) H Calcium Level 8.7 MG/DL (8.5-10.1) Total Bilirubin 0.6 MG/DL (0.2-1.0) Aspartate Amino Transferase (AST) 111 U/L (15-37) H Alanine Aminotransferase (ALT) 153 U/L (12-78) H Alkaline Phosphatase 85 U/L (46-116) Troponin I 0.000 ng/mL (0.000-0.056) Pro-B-Type Natriuretic Peptide 60 pg/mL (0-125) Total Protein 7.6 G/DL (6.4-8.2) Albumin 2.9 G/DL (3.4-5.0) L Globulin 4.7 g/dL Albumin/Globulin Ratio 0.6 (1.0-2.7) L Urine Opiates Screen Negative (NEGATIVE) Urine Barbiturates Screen Negative (NEGATIVE) Phencyclidine (PCP) Screen Negative (NEGATIVE) Urine Amphetamines Screen Negative (NEGATIVE) Urine Benzodiazepines Screen Negative (NEGATIVE) Urine Cocaine Screen Negative (NEGATIVE) Urine Marijuana (THC) Screen Negative (NEGATIVE) EKG Diagnostic Results EKG Time: 20:02 Rate: normal Rhythm: NSR ST Segments: no acute changes Other Impression Sinus rhythm, borderline right axis, normal intervals, no ST segment changes. Rhythm Strip Diag. Results Rhythm Strip Time: 20:02 EP Interpretation: yes Rate: 60s Rhythm: NSR, no PVC's, no ectopy Chest X-Ray Diagnostic Results Chest X-Ray Diagnostic Results : Chest X-Ray Ordered: Yes # of Views/Limited/Complete: 1 View Indication: Chest Pain EP Interpretation: Yes Interpretation: no consolidation, no effusion, no pneumothorax, no acute cardiopulmonary disease Impression: No acute disease Electronically Signed by: Electronically signed by Dr. Michael Kline Last Vital Signs Date Time Temp Pulse Resp B/P (MAP) Pulse Ox O2 Delivery O2 Flow Rate FiO2 06/03/20 19:52 98.4 65 16 124/61 (82) 95 Room Air Disposition: SNF Condition: Stable Referrals: Roberto Georges DO (PCP) Michael Kline MD Jun 03, 2020 20:21
[2020-06-03 20:27] LABS: BASOPHILS % (AUTO) 0.8 % (0.0-2.0); EOSINOPHILS % (AUTO) 3.1 % (0.0-3.0); HEMATOCRIT 48.1 % (42.0-52.0); HEMOGLOBIN 15.5 G/DL (14.2-18.0); LYMPHOCYTES % (AUTO) 24.6 % (20.0-45.0); MEAN CORPUSCULAR VOLUME 91 FL (80-99); MONOCYTES % (AUTO) 7.5 % (1.0-10.0); PLATELET COUNT 105 K/UL (150-450); RED BLOOD COUNT 5.29 M/UL (4.70-6.10); RED CELL DISTRIBUTION WIDTH 15.4 % (11.6-14.8)
[2020-06-03] MEDS ORDERED: Lidocaine 2% Visc 15ml soln ORAL ONE (20:30)
[2020-06-03] MEDS ORDERED: Dicyclomine HCl 10mg/5ml oral soln ORAL ONE (20:30)
[2020-06-03] MEDS ORDERED: Mylanta II UD 30ml ORAL ONE (20:30)
--- NOTE | 2020-06-03 20:54 | Diagnostic Imaging Report ---
EXAM: XR Chest, 1 View CLINICAL HISTORY: PAIN TECHNIQUE: Frontal view of the chest. COMPARISON: 05/21/2020 FINDINGS: Lungs: Low lung volumes with bronchovascular crowding. Mild retrocardiac atelectasis, correlate to exclude consolidation. Otherwise, no consolidation, pleural effusion, or pneumothorax. Pleural space: See above. Heart: Unremarkable. No cardiomegaly. Mediastinum: Unremarkable. Bones/joints: No acute abnormality IMPRESSION: 1. Low lung volumes with bronchovascular crowding. 2. Mild retrocardiac atelectasis, correlate to exclude consolidation. 3. Otherwise no acute cardiopulmonary disease. 4. If there is continued concern, recommend frontal and lateral chest radiographs or CT.
[2020-06-03 21:00] LABS: ANION GAP 7 mmol/L (5-15); BLOOD UREA NITROGEN 12 mg/dL (7-18); CALCIUM 8.7 MG/DL (8.5-10.1); CARBON DIOXIDE 26 MMOL/L (21-32); CHLORIDE 105 MMOL/L (98-107); POTASSIUM 3.8 MMOL/L (3.5-5.1); SODIUM 138 MMOL/L (136-145)
[2020-06-03 21:04] LABS: INR 1.1 (0.9-1.1)
[2020-06-03 21:11] LABS: ALANINE AMINOTRANSFERASE 153 U/L (12-78); ALBUMIN 2.9 G/DL (3.4-5.0); ALBUMIN/GLOBULIN RATIO 0.6 (1.0-2.7); ALKALINE PHOSPHATASE 85 U/L (46-116); ASPARTATE AMINO TRANSFERASE 111 U/L (15-37); BILIRUBIN,TOTAL 0.6 MG/DL (0.2-1.0)
[2020-06-03 22:00] VITALS: BP 126/72
[2020-06-04] VITALS: BP 131/72
[2020-06-04 03:00] VITALS: BP 124/72
[2020-06-04 05:12] VITALS: BP 122/78
== END 2020-06-04 05:10 ==
LOC: EDBD 19:57 → EMR 20:11
DX: R07.9 Chest pain, unspecified (principal); E78.5 Hyperlipidemia, unspecified; F20.9 Schizophrenia, unspecified; I25.10 Atherosclerotic heart disease of native coronary artery without angina pectoris; I11.9 Hypertensive heart disease without heart failure; I25.2 Old myocardial infarction; G81.94 Hemiplegia, unspecified affecting left nondominant side; E11.42 Type 2 diabetes mellitus with diabetic polyneuropathy; Z88.6 Allergy status to analgesic agent; Z88.8 Allergy status to other drugs, medicaments and biological substances
CPT/HCPCS: 36415; 71045; 80053; 80307; 83880; 84484; 85025; 85610; 85730; 87040; 93005; 96374; 96375; 99284; J2270; J2405; S0028